=== PATIENT | female | born 1960 | race Caucasian/White ===

== ENCOUNTER 2022-09-18 10:49 | Outpatient (OUT) | payer BC, SELFPAY ==
[2022-09-18 11:04] LABS: Basophils Absolute Auto 0.1 10^3/uL (0.0-0.1); Eosinophils Absolute Auto 0.2 10^3/uL (0.0-0.7); Eosinophils Percent Auto 3.8 % (0.9-7.0); Hematocrit 34.7 % (36.0-48.0); Hemoglobin 10.8 g/dL (12.0-16.0); Immature Granulocytes Abs Auto 0.03 10^3/uL (0.00-0.03); Immature Granulocytes Pct Auto 0.6 % (0.0-0.5); Lymphocytes Absolute Auto 1.2 10^3/uL (1.2-3.8); Lymphocytes Percent Auto 25.7 % (20.5-60.0); Mean Corpuscular HGB Conc 31.1 g/dL (29.9-35.2); Mean Corpuscular Hemoglobin 26.2 pg (26.7-34.0); Mean Corpuscular Volume 84.2 fL (81.0-99.0); Mean Platelet Volume 10.1 fL (9.5-13.5); Monocytes Absolute Auto 0.4 10^3/uL (0.3-0.8); Monocytes Percent Auto 8.8 % (1.7-12.0); Neutrophils Absolute Auto 2.9 10^3/uL (1.4-6.5); Neutrophils Percent Auto 60.1 % (43.0-75.0); Platelet Count 292 10^3/uL (150-450); Red Blood Count 4.12 10^6/uL (4.20-5.40); Red Cell Distribution Width 15.3 % (11.0-15.0); White Blood Count 4.8 10^3/uL (4.0-11.0)
[2022-09-18 11:20] LABS: Estimated Average Glucose 111 mg/dL; Glycohemoglobin A1C 5.5 % (4.5-6.2)
[2022-09-18 12:26] LABS: Alanine Aminotransferase 22 U/L (14-59); Albumin Globulin Ratio 1.1; Albumin Level 3.9 g/dL (3.4-5.0); Alkaline Phosphatase 86 U/L (46-116); Anion Gap 11.4; Aspartate Amino Transferase 13 U/L (15-37); BUN Creatinine Ratio 17.1; Bilirubin Direct <0.1 mg/dL (0.0-0.2); Bilirubin Total 0.2 mg/dL (0.2-1.0); Calcium 8.8 mg/dL (8.5-10.1); Carbon Dioxide 26.9 mmol/L (21.0-32.0); Chloride 104 mmol/L (98-107); Chol HDL Ratio 6.1; Cholesterol 273 mg/dL (<=200); Estimated GFR (African America >60 (>=60); Estimated GFR (Non-African Ame >60 (>=60); Globulin 3.6 g/dL; Glucose 94 mg/dL (74-106); HDL Cholesterol 45 mg/dL (40-60); Potassium 4.3 mmol/L (3.5-5.1); Sodium 138 mmol/L (136-145); Thyroid Stimulating Hormone 1.532 uIU/mL (0.358-3.740); Total Protein 7.5 g/dL (6.4-8.2); Triglycerides 274 mg/dL (<=150); VLDL CHOLESTEROL 54.8 mg/dL
== END 2022-09-18 10:50 | disposition home or self-care (01) ==
PROVIDERS: PCP Family Medicine; Visit Provider Family Medicine
DX: Z00.00 Encounter for general adult medical examination without abnormal findings (principal); M85.852 Other specified disorders of bone density and structure, left thigh; M85.851 Other specified disorders of bone density and structure, right thigh
CPT/HCPCS: 36415; 80048; 80061; 80076; 82306; 83036; 84443; 85025

== ENCOUNTER 2023-02-19 15:35 | Outpatient (OUT) | payer BC, SELFPAY ==
[2023-02-19 15:52] LABS: Basophils Percent Auto 0.4 % (0.2-2.0); Eosinophils Absolute Auto 0.2 10^3/uL (0.0-0.7); Eosinophils Percent Auto 2.4 % (0.9-7.0); Hematocrit 36.9 % (36.0-48.0); Immature Granulocytes Abs Auto 0.05 10^3/uL (0.00-0.03); Immature Granulocytes Pct Auto 0.5 % (0.0-0.5); Lymphocytes Absolute Auto 1.2 10^3/uL (1.2-3.8); Lymphocytes Percent Auto 11.7 % (20.5-60.0); Mean Corpuscular HGB Conc 32.5 g/dL (29.9-35.2); Mean Corpuscular Hemoglobin 30.2 pg (26.7-34.0); Mean Corpuscular Volume 92.9 fL (81.0-99.0); Mean Platelet Volume 9.8 fL (9.5-13.5); Monocytes Absolute Auto 0.4 10^3/uL (0.3-0.8); Monocytes Percent Auto 3.8 % (1.7-12.0); Neutrophils Absolute Auto 8.1 10^3/uL (1.4-6.5); Neutrophils Percent Auto 81.2 % (43.0-75.0); Platelet Count 275 10^3/uL (150-450); Red Blood Count 3.97 10^6/uL (4.20-5.40); Red Cell Distribution Width 13.2 % (11.0-15.0)
[2023-02-19 16:05] LABS: Estimated Average Glucose 111 mg/dL; Glycohemoglobin A1C 5.5 % (4.5-6.2)
[2023-02-19 16:17] LABS: Alanine Aminotransferase 43 U/L (14-59); Albumin Globulin Ratio 1.1; Albumin Level 3.7 g/dL (3.4-5.0); Alkaline Phosphatase 82 U/L (46-116); Anion Gap 8.9; Aspartate Amino Transferase 28 U/L (15-37); BUN Creatinine Ratio 17.3; Bilirubin Direct 0.1 mg/dL (0.0-0.2); Bilirubin Total 0.2 mg/dL (0.2-1.0); Calcium 9.4 mg/dL (8.5-10.1); Carbon Dioxide 30.2 mmol/L (21.0-32.0); Chloride 103 mmol/L (98-107); Chol HDL Ratio 5.4; Cholesterol 227 mg/dL (<=200); Estimated GFR (African America >60 (>=60); Estimated GFR (Non-African Ame 58 (>=60); Globulin 3.4 g/dL; Glucose 100 mg/dL (74-106); HDL Cholesterol 42 mg/dL (40-60); Potassium 4.1 mmol/L (3.5-5.1); Sodium 138 mmol/L (136-145); Thyroid Stimulating Hormone 1.154 uIU/mL (0.358-3.740); Total Protein 7.1 g/dL (6.4-8.2); Triglycerides 323 mg/dL (<=150); VLDL CHOLESTEROL 64.6 mg/dL
== END 2023-02-19 15:36 | disposition home or self-care (01) ==
LOC: LAB 15:35
PROVIDERS: PCP Family Medicine; Visit Provider Family Medicine
DX: Z00.00 Encounter for general adult medical examination without abnormal findings (principal)
CPT/HCPCS: 36415; 80048; 80061; 80076; 83036; 84443; 85025

== ENCOUNTER 2023-08-31 07:27 | Outpatient (RCR) | payer BC, SELFPAY ==
[2023-08-31 11:46] LABS: Bilirubin Urine NEGATIVE (NEGATIVE); Blood Urine NEGATIVE (NEGATIVE); Clarity Urine CLEAR (CLEAR); Color Urine LT. YELLOW (YELLOW); Glucose Urine UA NEGATIVE (NEGATIVE); Ketones Urine NEGATIVE (NEGATIVE); Leukocyte Esterase Urine NEGATIVE (NEGATIVE); Nitrite Urine NEGATIVE (NEGATIVE); Protein Urine NEGATIVE (NEG/TRACE); Urobilinogen Urine 0.2 EU/dL (0.2-1.0); pH Urine 6.5 (5.0-9.0)
--- NOTE | 2023-08-31 11:49 | PC.NURSE ---
1120: Pt. to [facility] amb. for straight cath. Denies questions. Explained procedure and what to expect to patient. Pt. to supine position. Using sterile technique, pt. straight cath'd for large amount clear yellow urine. Joanne care provided. Pt. given privacy to dress. 1135: Pt d/c'd amb. to home.
[2023-08-31 12:01] LABS: Urine Microscopic Indicated NO
== END 2023-08-31 14:46 | disposition home or self-care (01) ==
LOC: INF 07:27
PROVIDERS: PCP Family Medicine; Visit Provider Personal Emergency Response Attendant
DX: N30.00 Acute cystitis without hematuria (principal)
CPT/HCPCS: 51701; 81003

== ENCOUNTER 2023-09-07 11:30 | Outpatient (OUT) | payer BC, SELFPAY ==
--- NOTE | 2023-09-07 11:32 | MM_ITS ---
Patient Name: MANUEL RANDHAWA MR#: [id number] : 1960 Exam Date: 09/07/2023 Ordering Doctor: DR PATY GUADARRAMA RADIOLOGY REPORT PROCEDURE: MM TOMOSYNTHESIS SCREENING BI COMPARISON: MG MAMM SCREEN 3D JAYCE CAD, 06/16/2022. INDICATIONS: Screening Calculator Name NCI Breast Cancer Risk Assessment Tool 5 Year Breast Cancer Risk Not Reported. Lifetime Breast Cancer Risk Not Reported. Personal Breast Cancer No Personal Ovarian Cancer No Treatments None Family Cancers None LOCATION: [facility] BREAST COMPOSITION: There are scattered areas of fibroglandular density. FINDINGS: DIAGNOSTIC CATEGORY 2--BENIGN FINDING. NO CHANGE FROM COMPARISON. Scattered benign-appearing nodules are present. Scattered benign-appearing calcifications are present. Scattered benign-appearing lymph nodes are present. RIGHT BREAST: No significant suspicious finding. LEFT BREAST: No significant suspicious finding. RECOMMENDATIONS: ROUTINE MAMMOGRAM AND CLINICAL EVALUATION IN 12 MONTHS. PLEASE NOTE: A NORMAL MAMMOGRAM DOES NOT EXCLUDE THE POSSIBILITY OF BREAST CANCER. A CLINICALLY SUSPICIOUS PALPABLE LUMP SHOULD BE BIOPSIED. Dictated by: Navid Johnson MD on 09/07/2023 at 12:54 Approved by: Navid Johnson MD on 09/07/2023 at 13:04
--- OUTSIDE RECORDS SUMMARY | 2023-09-07 11:52 | XMS_ITS | CCD ---
Author Organization [facility] Care Team Providers Care Testboard Operator Name Role Phone ARNOLDO, DR TERRY Hines Admitting Unavailable NADERER, DR TERRY Hines Attending Unavailable NADERER, DR TERRY Hines Consulting Unavailable NADEREMolly, DR TERRY Hines Primary Care Unavailable KARASIK ., DR SALINAS Attending Unavailabl e NADERER, DR TERRY Hines Primary Care Unavailable KARASIK ., DR SALINAS Consulting Unavailabl e KARASIK ., DR SALINAS Admitting Unavailabl e ZIEBER, DR MALDONADO Barnes Consulting Unavailable KARASIK ., DR SALINAS Attending Unavailabl e KARASIK ., DR SALINAS Consulting Unavailabl e NADERER, DR TERRY Hines Primary Care Unavailable KARASIK ., DR SALINAS Admitting Unavailabl e KARASIK ., DR SALINAS Attending Unavailabl e KARASIK ., DR SALINAS Consulting Unavailabl e NADERER, DR TERRY Hines Primary Care Unavailable KARASIK ., DR SALINAS Admitting Unavailabl e KARASIK ., DR SALINAS Attending Unavailabl e KARASIK ., DR SALINAS Consulting Unavailabl e NADEREMolly, DR TERRY Hines Primary Care Unavailable KARASIK ., DR SALINAS Admitting Unavailabl e Terry Mclaughlin MD Primary Care Provider [phone] ELLSWORTHENCE Attending Unavailable ALFONSOHENRIETTA TEMPLETON J Attending Unavailable LORRIE, JUAN MIGUEL Attending Unavailable ALFONSOHENRIETTA TEMPLETON J Attending Unavailable ALFONSOHENRIETTA TEMPLETON J Attending Unavailable LORRIE, JUAN MIGUEL Attending Unavailable ALFONSOHENRIETTA TEMPLETON J Attending Unavailable LORRIE, JUAN MIGUEL Attending Unavailable LORRIE, JUAN MIGUEL Attending Unavailable KENY DUNCAN Referring Unavailable KENY DUNCAN Referring Unavailable KENY DUNCAN Referring Unavailable KENY DUNCAN Referring Unavailable ALFONSOHENRIETTA TEMPLETON Attending Unavailable ALFONSOHENRIETTA TEMPLETON Attending Unavailable NADERETERRY Barnes Attending PATY Lama Attending Monica SALEH JR., SONJA Ivory Attending Marlon SALEH JR., SONJA Ivory Referring Marlon SALEH JR., SNOJA Ivory Attending Marlon SALEH JR., SONJA Ivory Referring TERRY Levy Attending Unavailable KENY DUNCAN Attending PATY Lama Attending PATY Lama Referring Unavailable Allergies Allergy Classification Reported Allergen(s) Allergy Type Date of Onset Reaction(s) Facility (1 source) bee venom Drug allergy (disorder) 04-03-19 14 [facility] (1 source) Erythromycin Drug Allergy 04-03-19 14 [facility] (1 source) Sulfonamides (Antibiotic) Drug allergy (disorder) 04-03-19 14 [facility] (2 sources) Erythromycin; Translations: [ERYTHROMYCIN] Drug Allergy 06-19-19 23 Rash [facility] (1 source) Honey bee venom Allergy to substance 08-30-19 23 Anaphylaxis [facility] (1 source) Sulfamethoxazole / Trimethoprim Drug Allergy 07-17-19 23 Rash [facility] (1 source) Sulfonamides (Antibiotic) Drug Allergy 06-19-19 23 Swelling, Rash [facility] (1 source) Sulfonamides (Antibiotic); Translations: [SULFA (SULFONAMIDE ANTIBIOTICS)] Propensity to adverse reactions to drug (disorder) 06-19-19 23 [facility] Rep[facility] Medications Current Medications Medication Drug Class(es) Dates Sig (Normalized) Sig (Original) acetaminophen 325 mg / HYDROcodone bitartrate 5 mg oral tablet (1 source) Opioid Agonist Start: 06-24-2022 take 1 tablet by mouth four times daily as needed HYDROcodone-acetamin ophen ([place]) 5-325 MG tablet Take 1 tablet by mouth 4 (four) times a day as needed. 0 06/24/2022 Active amitriptyline hydrochloride 75 mg oral tablet (1 source) Tricyclic Antidepressant Start: 10-29-2022 take 1 tablet by mouth at bedtime amitriptyline (Elavil) 75 MG tablet Take 1 tablet by mouth at bedtime 0 10/29/2022 Active brexpiprazole 2 mg oral tablet (1 source) Atypical Antipsychotic Brexpiprazole (Rexulti) 2 MG tablet Take by mouth. 0 Active calcium polycarbophil 625 mg oral tablet (1 source) Start: 03-16-2023 take 2 tablets by mouth in the morning polycarbophil (FiberCon) 625 MG tablet Indications: Chronic constipation Take 2 tablets (1,250 mg) by mouth in the morning. 60 tablet 5 03/16/2023 Active cyclobenzaprine hydrochloride 5 mg oral tablet (1 source) Muscle Relaxant cyclobenzaprine (Flexeril) 5 MG tablet 3 (three) times a day as needed. 0 Active diazePAM 10 mg oral tablet (1 source) Benzodiazepine Start: 06-12-2022 take 1 tablet by mouth three times daily as needed diazePAM (Valium) 10 MG tablet Take 10 mg by mouth 3 (three) times a day as needed. 0 06/12/2022 Active [id number] 0.3 ml EPINEPHrine 1 mg/ml auto-injector (2 sources) alpha-Adrenergic Agonist, beta-Adrenergic Agonist, Catecholamine Start: 02-17-2022 End: 03-26-2023 EPINEPHrine (Epipen) 0.3 MG/0.3ML injection syringe Indications: History of allergic reaction INJECT 1 (ONE) pen NEEDED 1 each 3 03/26/2023 Active lactulose 667 mg/ml oral solution (1 source) Osmotic Laxative Start: 03-16-2023 take 30 mL by mouth twice daily as needed for constipation lactulose 20 gram/30 mL oral solution Indications: Chronic constipation Take 30 mL (20 g) by mouth 2 (two) times a day as needed (Constipation) 450 mL 3 03/16/2023 Active meloxicam 15 mg oral tablet (1 source) Nonsteroidal Anti-inflammatory Drug take 1 tablet by mouth in the morning meloxicam (Mobic) 15 MG tablet Take 15 mg by mouth in the morning. 0 Active omeprazole 40 mg delayed release oral capsule (1 source) Proton Pump Inhibitor take 1 capsule by mouth in the morning omeprazole (PriLOSEC) [address] capsule Take 40 mg by mouth in the morning and 40 mg before bedtime. 0 Active 0.25 mg, 0.5 mg dose 1.5 ml semaglutide 1.34 mg/ml pen injector (1 source) Start: 02-18-2023 semaglutide (Ozempic, 0.25 or 0.5 MG/DOSE,) 2 MG/1.5ML solution pen-injector Indications: Metabolic syndrome 0.25 mg SC weekly x 4 weeks, then 0.5 mg weekly 4 each 3 02/18/2023 Active sucralfate 1000 mg oral tablet (2 sources) Aluminum Complex Start: 12-13-2021 End: 03-26-2023 take 1 tablet by mouth at bedtime sucralfate (Carafate) 1 g tablet Indications: Gastroesophageal reflux disease without esophagitis Take 1 tablet (1 g) by mouth in the morning and 1 tablet (1 g) at noon and 1 tablet (1 g) in the evening and 1 tablet (1 g) before bedtime. Take before meals. 120 tablet 5 03/26/2023 Active topiramate 25 mg oral tablet (1 source) Start: 02-19-2023 take 1 tablet by mouth in the morning topiramate (Topamax) 25 MG tablet Take 25 mg by mouth in the morning and 25 mg in the evening. 0 02/19/2023 Active 24 hr venlafaxine 150 mg extended release oral capsule (1 source) Serotonin and Norepinephrine Reuptake Inhibitor take 1 capsule by mouth every twenty-four hours in the morning venlafaxine XR (Effexor XR) 150 MG 24 hr capsule Take 150 mg by mouth in the morning and 150 mg before bedtime. Do not crush or chew. . 0 Active zolpidem tartrate 10 mg oral tablet (1 source) gamma-Aminobutyric Acid-ergic Agonist Start: 02-02-2023 take 1 tablet by mouth at bedtime zolpidem (Ambien) 10 MG tablet Indications: Insomnia, unspecified TAKE 1 TABLET BY MOUTH AT BEDTIME 30 tablet 2 02/02/2023 Active Problems Active Problems Problem Classification Problem Date Documented Da te Episodic/Chronic Allergic reactions (1 source) History of immune disorder; Translations: [Allergy status to unspecified drugs, medicaments and biological substances status] 03-26-2023 Episodic Anxiety disorders (4 sources) Generalized anxiety disorder; Translations: [Generalized anxiety disorder] Onset: 2 08-29-2022 Chronic Disorders of lipid metabolism (1 source) Hyperlipidemia; Translations: [Hyperlipidemia, unspecified] Onset: 4 02-18-2023 Chronic Esophageal disorders (2 sources) Gastroesophageal reflux disease without esophagitis; Translations: [Gastro-esophageal reflux disease without esophagitis] Onset: 4 03-26-2023 Chronic Genitourinary symptoms and ill-defined conditions (1 source) Female stress incontinence; Translations: [Stress incontinence (female) (male)] Onset: 4 02-18-2023 Chronic Immunizations and screening for infectious disease (5 sources) Encounter for screening for human papillomavirus (HPV); Translations: [Encounter for screening for infections with a predominantly sexual mode of transmission] Onset: 2 Episodic Miscellaneous mental health disorders (1 source) Primary insomnia; Translations: [Primary insomnia] Onset: 4 02-18-2023 Chronic Mood disorders (3 sources) Recurrent major depressive episodes, moderate ; Translations: [Major depressive disorder, recurrent, moderate] Onset: 2 Resolved: 3 02-18-2023 Chronic Osteoarthritis (4 sources) Arthritis of hand; Translations: [Primary osteoarthritis, unspecified hand] Onset: 3 08-29-2022 Chronic Other bone disease and musculoskeletal deformities (1 source) Other specified disorders of bone density and structure, left thigh; Translations: [OTH D/O BONE DEN STRUCT LT THIGH] Onset: 3 Episodic Other connective tissue disease (1 source) History of total knee arthroplasty; Translations: [Presence of unspecified artificial knee joint] Onset: 3 08-29-2022 Chronic Other connective tissue disease (1 source) Artificial knee joint present; Translations: [Presence of left artificial knee joint] Onset: 3 08-29-2022 Chronic Other gastrointestinal disorders (2 sources) Chronic constipation; Translations: [Other constipation] Onset: 4 03-26-2023 Episodic Other nervous system disorders (1 source) Polyneuropathy; Translations: [Polyneuropathy, unspecified] Onset: 4 02-18-2023 Chronic Other nutritional; endocrine; and metabolic disorders (1 source) Body mass index 30+ - obesity; Translations: [Obesity, unspecified] Onset: 4 02-18-2023 Chronic Other nutritional; endocrine; and metabolic disorders (1 source) Metabolic syndrome X; Translations: [Metabolic syndrome] Onset: 4 02-18-2023 Chronic Other screening for suspected conditions (not mental disorders or infectious disease) (12 sources) Encounter for screening mammogram for malignant neoplasm of breast; Translations: [Encounter for screening for malignant neoplasm of cervix] Onset: 3 Episodic Other skin disorders (1 source) Hyperhidrosis; Translations: [Generalized hyperhidrosis] Onset: 4 02-18-2023 Episodic Other upper respiratory disease (1 source) Allergic rhinitis due to pollen; Translations: [Allergic rhinitis due to pollen] Onset: 4 02-18-2023 Chronic Residual codes; unclassified (1 source) Asymptomatic menopausal state; Translations: [ASYMPTOMATIC MENOPAUSAL STATE] Onset: 3 Episodic Residual codes; unclassified (1 source) Edema of lower extremity; Translations: [Localized edema] Onset: 4 02-18-2023 Episodic Spondylosis; intervertebral disc disorders; other back problems (1 source) Lumbar spondylosis; Translations: [Spondylosis without myelopathy or radiculopathy, lumbar region] Onset: 4 02-18-2023 Chronic Past or Other Problems Problem Classification Problem Date Documented Da te Episodic/Chronic Mood disorders (1 source) Mood disorders Onset: 02-18-2023 02-18-2023 Other acquired deformities (1 source) Deyanira legged; Translations: [Varus deformity, not elsewhere classified, right knee] Onset: 08-29-2022 08-29-2022 Episodic Other connective tissue disease (1 source) Pain of left hand; Translations: [Pain in left hand] Onset: 08-29-2022 08-29-2022 Episodic Other non-traumatic joint disorders (1 source) Pain in unspecified knee; Translations: [Pain in joint, lower leg] Onset: 08-29-2022 08-29-2022 Episodic Urinary tract infections (1 source) Acute cystitis; Translations: [Acute cystitis without hematuria] Onset: 08-29-2022 08-29-2022 Episodic Viral infection (1 source) Condyloma acuminatum of the anogenital region; Translations: [Anogenital (venereal) warts] Onset: 08-29-2022 08-29-2022 Episodic Results Test Name Value Interpretation Reference Range Facility XR BONE LENGTH STUDYon 08-17 XR BONE LENGTH STUDY XR BONE LENGTH STUD Y Clinical History: Preop total knee arthroplasty Bone length study lower extremities: 08/17/2023 Impression: 1. Frontal images of both lower extremities were performed 2. The patient is status post left total knee arthroplasty. 3. Degenerative changes are present at the right knee with varus deformity. 4. There is approximately 4 degrees of pelvic tilt towards the right. Finalized by Pascual Castro MD on 08/18/2023 6:34 AM Normal [facility] CBC AND AUTO DIFFon 08-17-19 24 ABSOLUTE BASOPHIL 0.0 X10E9/L Normal 0.0-0.2 [facility] Comment on above: Performed By: #### P INR, 63630-5 #### [facility] ([id number]) [address] [place] [address] 28245 #### CMP, CBCA #### [facility] ([id number]) [address], [address] [place] [address] ABSOLUTE NEUTROPHIL 3.7 X10E9/L Normal 1.5-6.6 [facility] Comment on above: Performed By: #### P INR, 43249-5 #### [facility] ([id number]) [address] [place] [address] 37089 #### CMP, CBCA #### [facility] ([id number]) [address], [address] [place] [address] Basophils/100 WBC (Bld) 0.8 % Normal [facility] Comment on above: Performed By: #### P INR, 63092-4 #### [facility] ([id number]) [address] [place] [address] 77373 #### CMP, CBCA #### [facility] ([id number]) [address], [address] [place] [address] Eosinophils (Bld) [#/Vol] 0.1 10*3/uL Normal 0.0-0.4 [facility] Comment on above: Performed By: #### P INR, 10247-6 #### [facility] ([id number]) [address] [place] [address] 72555 #### CMP, CBCA #### [facility] ([id number]) [address], [address] [place] [address] Eosinophils/100 WBC (Bld) 2.4 % Normal [facility] Comment on above: Performed By: #### P INR, 78783-9 #### [facility] ([id number]) [address] [place] [address] 39139 #### CMP, CBCA #### [facility] ([id number]) [address], [address] [place] [address] Erythrocyte distribution width (RBC) [Ratio] 14.6 % Normal 11.5-15.0 [facility] Comment on above: Performed By: #### P INR, 35789-9 #### [facility] ([id number]) [address] [place] [address] 66460 #### CMP, CBCA #### [facility] ([id number]) [address], [address] [place] [address] Hematocrit (Bld) [Volume fraction] 38.0 % Normal 35-47 [facility] Comment on above: Performed By: #### P INR, 73655-5 #### [facility] ([id number]) [address] [place] [address] 60585 #### CMP, CBCA #### [facility] ([id number]) [address], [address] [place] [address] Hemoglobin (Bld) [Mass/Vol] 13.1 g/dL Normal 11.7-15.5 [facility] Comment on above: Performed By: #### P INR, 17590-3 #### [facility] ([id number]) [address] [place] [address] 11255 #### CMP, CBCA #### [facility] ([id number]) [address], [address] [place] [address] Lymphocytes (Bld) [#/Vol] 1.2 10*3/uL Normal 1.0-3.5 [facility] Comment on above: Performed By: #### P INR, 98710-5 #### [facility] ([id number]) [address] [place] [address] 46722 #### CMP, CBCA #### [facility] ([id number]) [address], [address] [place] [address] Lymphocytes/100 WBC (Bld) 23.1 % Normal [facility] Comment on above: Performed By: #### P INR, 75784-5 #### [facility] ([id number]) [address] [place] [address] 28022 #### CMP, CBCA #### [facility] ([id number]) [address], [address] [place] [address] MCH (RBC) [Entitic mass] 30.2 pg Normal 27-34 [facility] Comment on above: Performed By: #### P INR, 41059-8 #### [facility] ([id number]) [address] [place] [address] 92144 #### CMP, CBCA #### [facility] ([id number]) [address], [address] [place] [address] MCHC (RBC) [Mass/Vol] 34.6 g/dL Normal 32-36 [facility] Comment on above: Performed By: #### P INR, 03033-5 #### [facility] ([id number]) [address] [place] [address] 84090 #### CMP, CBCA #### [facility] ([id number]) [address], [address] [place] [address] MCV (RBC) [Entitic vol] 87 fL Normal 80-100 [facility] Comment on above: Performed By: #### P INR, 33749-3 #### [facility] ([id number]) [address] [place] [address] 41173 #### CMP, CBCA #### [facility] ([id number]) [address], [address] [place] [address] Monocytes (Bld) [#/Vol] 0.3 10*3/uL Normal 0-0.9 [facility] Comment on above: Performed By: #### P INR, 61567-6 #### [facility] ([id number]) [address] [place] [address] 71363 #### CMP, CBCA #### [facility] ([id number]) [address], [address] [place] [address] Monocytes/100 WBC (Bld) 5.8 % Normal [facility] Comment on above: Performed By: #### P INR, 01238-3 #### [facility] ([id number]) [address] [place] [address] 00660 #### CMP, CBCA #### [facility] ([id number]) [address], [address] [place] [address] Neutrophils/100 WBC (Bld) 67.9 % Normal [facility] Comment on above: Performed By: #### P INR, 87469-5 #### [facility] ([id number]) [address] [place] [address] 36996 #### CMP, CBCA #### [facility] ([id number]) [address], [address] [place] [address] Platelet mean volume (Bld) [Entitic vol] 8.9 fL Normal 7-12 [facility] Comment on above: Performed By: #### P INR, 75002-6 #### [facility] ([id number]) [address] [place] [address] 46340 #### CMP, CBCA #### [facility] ([id number]) [address] [facility] [address], [address] [place] [address] Platelets (Bld) [#/Vol] 271 10*3/uL Normal 150-450 [facility] Comment on above: Performed By: #### P INR, 84834-2 #### [facility] ([id number]) [address] [place] [address] 84315 #### CMP, CBCA #### [facility] ([id number]) [address] [facility], [address] [place] [address] RBC COUNT 4.35 X10E12/L Normal 3.80-5.20 [facility] Comment on above: Performed By: #### P INR, 84532-9 #### [facility] ([id number]) [address] [place] [address] 00032 #### CMP, CBCA #### [facility] ([id number]) [address] [facility] [facility] [address], [address] [place] [address] WBC (Bld) [#/Vol] 5.4 10*3/uL Normal 4.0-11.0 [facility] Comment on above: Performed By: #### P INR, 25951-6 #### [facility] ([id number]) [address] [place] [address] 98097 #### CMP, CBCA #### [facility] ([id number]) [address] [facility] [address], [address] [place] [address] COMPREHENSIVE METABOLIC PANE [facility] 08-17-2023 Albumin [Mass/Vol] 4.4 g/dL Normal 3.2-5.3 [facility] Comment on above: Performed By: #### P INR, 49791-5 #### [facility] ([id number]) [address] [place] [address] 06987 #### CMP, CBCA #### [facility] ([id number]) [address], [address] [place] [address] ALP [Catalytic activity/Vol] 92 U/L Normal 39-130 [facility] Comment on above: Performed By: #### P INR, 39886-4 #### [facility] ([id number]) [address] [place] [address] 70933 #### CMP, CBCA #### [facility] ([id number]) [address], [address] [place] [address] ALT [Catalytic activity/Vol] 24 U/L Normal 0-31 [facility] Comment on above: Performed By: #### P INR, 88235-6 #### [facility] ([id number]) [address] [place] [address] 38263 #### CMP, CBCA #### [facility] ([id number]) [address], [address] [place] [address] Anion gap [Moles/Vol] 9 mmol/L Normal 5-15 [facility] Comment on above: Performed By: #### P INR, 09621-6 #### [facility] ([id number]) [address] [place] [address] 57084 #### CMP, CBCA #### [facility] ([id number]) [address], [address] [place] [address] AST [Catalytic activity/Vol] 20 U/L Normal 0-41 [facility] Comment on above: Performed By: #### P INR, 10278-0 #### [facility] ([id number]) [address] [place] [address] 51760 #### CMP, CBCA #### [facility] ([id number]) [address] [place] [address] Bilirubin [Mass/Vol] 0.2 mg/dL Low 0.3-1.2 [facility] Comment on above: Performed By: #### P INR, 88129-6 #### [facility] ([id number]) [address] [place] [address] 07718 #### CMP, CBCA #### [facility] ([id number]) [address], [address] [place] [address] Calcium [Mass/Vol] 9.2 mg/dL Normal 8.5-10.5 [facility] Comment on above: Performed By: #### P INR, 41658-7 #### [facility] ([id number]) [address] [place] [address] 12209 #### CMP, CBCA #### [facility] ([id number]) [address], [address] [place] [address] Chloride [Moles/Vol] 109 mmol/L Normal 98-109 [facility] Comment on above: Performed By: #### P INR, 35850-6 #### [facility] ([id number]) [address] [place] [address] 44997 #### CMP, CBCA #### [facility] ([id number]) [address] [place] [address] CO2 [Moles/Vol] 23 mmol/L Normal 22-32 [facility] Comment on above: Performed By: #### P INR, 63931-4 #### [facility] ([id number]) [address] [place] [address] 19884 #### LETY CBCA #### [facility] ([id number]) [address], [address] [place] [address] Creatinine [Mass/Vol] 0.75 mg/dL Normal 0.40-1.00 [facility] Comment on above: Result Comment: METH OD TRACEABLE TO IDMS STANDARD Performed By: #### P INR, 77148-8 #### [facility] ([id number]) [address] [place] [address] 52971 #### LETY CBCA #### [facility] ([id number]) [address], [address] [place] [address]36 eGFR (CKD-EPI) NON-RACE DEPENDENT >90 Normal >59 [facility] Comment on above: Result Comment: Reported eGFR is based on the CKD-EPI 2020 equation that does not use a race coefficient. Performed By: #### P INR, 11787-1 #### [facility] ([id number]) [address] [place] [address] 24953 #### LETY CBCA #### [facility] ([id number]) [address] [address], [address] [place] [address] Glucose [Mass/Vol] 109 mg/dL High 65-99 [facility] Comment on above: Performed By: #### P INR, 77480-4 #### [facility] ([id number]) [address] [place] [address] 92641 #### CMP CBCA #### [facility] ([id number]) [address] [facility] [address], [address] [place] [address] Potassium [Moles/Vol] 3.8 mmol/L Normal 3.5-5.0 [facility] Comment on above: Performed By: #### P INR, 04981-3 #### [facility] ([id number]) [address] [place] [address] 60387 #### CMP, CBCA #### [facility] ([id number]) [address] [facility] [facility] [address], [address] [place] [address] Protein [Mass/Vol] 7.0 g/dL Normal 6.0-8.0 [facility] Comment on above: Performed By: #### P INR, 40477-5 #### [facility] ([id number]) [address] [place] [address] 83707 #### CMP, CBCA #### [facility] ([id number]) [address] [facility], [address] [place] [address] Sodium [Moles/Vol] 141 mmol/L Normal 134-146 [facility] Comment on above: Performed By: #### P INR, 18867-9 #### [facility] ([id number]) [address] [place] [address] 30485 #### CMP, CBCA #### [facility] ([id number]) 0 [facility], [address] [place] [address] Urea nitrogen [Mass/Vol] 18 mg/dL Normal 5-23 [facility] Comment on above: Performed By: #### P INR, 74915-8 #### [facility] ([id number]) [address] [place] [address] #### CMP, CBCA #### [facility] ([id number]) [address] [facility], [address] [place] [address] PROTIME AND INRon 08-17-2023 INR Coag (PPP) [Relative time] 1.0 {INR} Normal 0.8-1.1 [facility] Comment on above: Performed By: #### P INR, 78531-0 #### [facility] ([id number]) [address] [place] [address] #### CMP, CBCA #### [facility] ([id number]) [address] [facility], [address] [place] [address] PT Coag (PPP) [Time] 11.8 s Normal 9.8-13.2 [facility] Comment on above: Result Comment: NEW REFERENCE RANGE Performed By: #### P INR, 66408-6 #### [facility] ([id number]) [address] [place] [address] #### CMP, CBCA #### [facility] ([id number]) [address] [facility], [address] [place] [address] URINALYSISon 08-17-2023 Bilirubin Ql (U) Negative Normal NEG [facility] Comment on above: Performed By: #### U A #### [facility] ([id number]) [address] [facility], [address] [place] [address] BLOOD/HGB Negative Normal NEG [facility] Comment on above: Performed By: #### U A #### [facility] ([id number]) [address] [facility], [address] [place] [address] CA OXALATE CRYSTALS PRESENT Abnormal NONE [facility] Comment on above: Performed By: #### U A #### [facility] ([id number]) [address] [facility], [address] [place] [address] Color (U) YELLOW Normal YELLOW [facility] Comment on above: Performed By: #### U A #### [facility] ([id number]) [address] [facility], [address] [place] [address] Glucose Ql (U) Negative Normal NEG [facility] Comment on above: Performed By: #### U A #### [facility] ([id number]) [address] [facility], [address] [place] [address] Ketones Ql (U) Negative Normal NEG [facility] Comment on above: Performed By: #### U A #### [facility] ([id number]) [address] [place] [address] Leukocyte esterase Test strip Ql (U) Small Abnormal NEG [facility] Comment on above: Performed By: #### U A #### [facility] ([id number]) [address], [address] [place] [address] MUCOUS PRESENT Abnormal NONE [facility] Comment on above: Performed By: #### U A #### [facility] ([id number]) [address] [facility], [address] [place] [address] Nitrite Ql (U) Negative Normal NEG [facility] Comment on above: Performed By: #### U A #### [facility] ([id number]) [address] [place] [address] pH (U) 6.0 [pH] Normal 5.0-8.5 [facility] Comment on above: Performed By: #### U A #### [facility] ([id number]) [facility], [address] [place] [address] Protein Ql (U) Negative Normal NEG [facility] Comment on above: Performed By: #### U A #### [facility] ([id number]) [address] [place] [address] R.B.CELLS 1 /hpf Normal 0-5 [facility] Comment on above: Performed By: #### U A #### [facility] ([id number]) [address], [address] [place] [address] Specific gravity (U) [Rel density] 1.021 Normal 1.003-1.035 [facility] Comment on above: Performed By: #### U A #### [facility] ([id number]) [address], [address] [place] [address] SQUAMOUS EPITHELIUM 1 /hpf Normal 0-5 [facility] Comment on above: Performed By: #### U A #### [facility] ([id number]) [address] [place] [address] TURBIDITY CLEAR Normal CLEAR [facility] Comment on above: Performed By: #### U A #### [facility] ([id number]) [address] [place] [address] Urobilinogen (U) [Mass/Vol] mg/dL Normal <1.1 [facility] Comment on above: Performed By: #### U A #### [facility] ([id number]) [address] [address] [place] [address] W.B.CELLS 3 /hpf Normal 0-5 [facility] Comment on above: Performed By: #### U A #### [facility] ([id number]) [address] [address] [place] [address] URINE CULTUREon 08-17-2023 Bacteria identified Cx Nom (U) CULTURE RESULTS >100,000 ORGANISMS/mL ESCHERICHIA COLI [ S = SUSCEPTIBLE R = RESISTANT I = INTERMEDIATE S-DO = Susceptible-dose dependent NS = Non-suscceptible NO = No Interpretation ] Organism: ESCHERICHIA COLI Antibiotic Interpretation HONG Status AMPICILLIN S <=2 F AMP/SULBACTAM S <=2/1 F CEFAZOLIN S <=4 F CEFTRIAXONE S <=1 F CIPROFLOXACIN R >=4 F GENTAMICIN S <=1 F LEVOFLOXACIN R >=8 F NITROFURANTOIN S <=16 F PIPERACIL/TAZOBACTAM S <=4 F TOBRAMYCIN S <=1 F TRIMETH/SULFAMETHOXAZO LE S <=1/19 F Susceptible [facility] Comment on above: Performed By: #### 6 30-4 #### [facility] ([id number]) [address] [address] [place] [address] aPTT Coag (PPP) [Time]on aPTT Coag (Bld) [Time] 30 s Normal 26-37 [facility] Comment on above: Result Comment: NEW REFERENCE RANGE Performed By: #### P INR, 85189-9 #### [facility] ([id number]) [address] [place] [address], [place] [address] #### CMP, CBCA #### [facility] ([id number]) [address] [place] [address], [address] [place] [address] PAP ACOG PANEL 2: 30 to 65on 06-18-2022 . . Normal [facility] Comment on above: Result Comment: Perf ormed at: WB Performed By: #### 4 [id number] #### [facility] [address] [address] [address] Laurita Hooker Age Gdln ACOG Testing 30-65 Normal [facility] Comment on above: Performed By: #### 4 [id number] #### [facility] [address] [address] [address] Laurita Hooker DIAGNOSIS: Comment Abnormal [facility] Comment on above: Result Comment: EPIT HELIAL CELL ABNORMALITY. LOW GRADE SQUAMOUS INTRAEPITHELIAL LESION (LSIL). Performed at: WB Performed By: #### 4 [id number] #### [facility] [address] [place] [address] Dr. Laurita Hooker Electronically signed by: Comment Normal [facility] Comment on above: Result Comment: Leeann Carrera MD, Pathologist Performed at: WB Performed By: #### 4 [id number] #### [facility] [address] [address] [address] Laurita Hooker HPV Aptima Positive Abnormal Negative [facility] Comment on above: Result Comment: This nucleic acid amplification test detects fourteen high-risk HPV types (16,18,31,33,35,39,45,51,52,56,58,59,66,68) without differentiation. Performed at: =G Performed By: #### 4 [id number] #### [facility] [address] [address] [address] Laurita Hooker HPV Genotype Reflex Comment Normal [facility] Comment on above: Result Comment: Crit eria not met, HPV Genotype not performed. Performed at: WB Performed By: #### 4 [id number] #### [facility] [address] [address] [address] Laurita Hooker Methodology: Comment Normal [facility] Comment on above: Result Comment: This liquid based ThinPrep(R) pap test was screened with the use of an image guided system. Performed at: WB Performed By: #### 4 [id number] #### [facility] [address] [place] [address] Dr. Laurita Hooker Note: Comment Normal [facility] Comment on above: Result Comment: The Pap smear is a screening test designed to aid in the detection of premalignant and malignant conditions of the uterine cervix. It is not a diagnostic procedure and should not be used as the sole means of detecting cervical cancer. Both false-positive and false-negative reports do occur. . Performed at: WB Performed By: #### 4 [id number] #### [facility] [address] [place] [address] Dr. Laurita Hooker Pathologist Provided ICD10 Comment Normal [facility] Comment on above: Result Comment: R87. [id number] Performed at: WB Performed By: #### 4 [id number] #### [facility] [address] [place] [address] Dr. Laurita Hooker Performed by: Comment Normal [facility] Comment on above: Result Comment: Ashley Pena Marriage Performer (ASCP) Performed at: WB Performed By: #### 4 [id number] #### [facility] [address] [place] [address] Dr. Laurita Hooker Recommendation: Comment Abnormal [facility] Comment on above: Result Comment: Sugg est follow up as clinically appropriate. Performed at: WB Performed By: #### 4 [id number] #### [facility] [address] [place] [address] Dr. Laurita Hooker Specimen adequacy: Comment Normal [facility] Comment on above: Result Comment: Sati sfactory for evaluation. Endocervical and/or squamous metaplastic cells (endocervical component) are present. Performed at: WB Performed By: #### 4 [id number] #### [facility] [address] [place] [address] Dr. Laurita Hooker MG MAMM SCREEN 3D JAYCE CADon 06-16-2022 MG MAMM SCREEN 3D JAYCE CAD Patient: MANUEL RANDHAWA Exam Date: 06/16/2022 : 1960 Gender:F Ordering : DR BRAD CALERO . Admission #: [id number] Family : Order #: [id number] CLICK HERE TO VIEW EXAM RADIOLOGY REPORT PROCEDURE: MAMMOGRAM SCREENING 3D BILATERAL CAD COMPARISON: MAMMO JAYCE DIAG DIG, 12/02/2010. MAMMO SCREEN DIG JAYCE, 11/22/2010. DIGITIZED_MAMMO, 12/18/2001. INDICATIONS: Screening mammography Calculator Name NCI Breast Cancer Risk Assessment Tool 5 Year Breast Cancer Risk Not Reported. Lifetime Breast Cancer Risk Not Reported. Personal Breast Cancer No Personal Ovarian Cancer No Treatments None Family Cancers None LOCATION: [facility] BREAST COMPOSITION: Scattered areas fibroglandular density. FINDINGS: DIAGNOSTIC CATEGORY 2--BENIGN FINDING: RIGHT BREAST: No significant suspicious finding. Scattered benign-appearing lymph nodes are present. No significant change has occurred. LEFT BREAST: No significant suspicious finding. Significant decrease in size of previously seen lymph nodes. RECOMMENDATIONS: ROUTINE MAMMOGRAM AND CLINICAL EVALUATION IN 12 MONTHS. PLEASE NOTE: A NORMAL MAMMOGRAM DOES NOT EXCLUDE THE POSSIBILITY OF BREAST CANCER. A CLINICALLY SUSPICIOUS PALPABLE LUMP SHOULD BE BIOPSIED. Dictated by: Maldonado Redd M.D. on 06/16/2022 at 14:18 Approved by: Maldonado Redd M.D. on 06/16/2022 at 14:21 Normal [facility] XR DEXA BONE DENSITYon 06-16 XR DEXA BONE DENSITY EXAMINATION: XR DEX A BONE DENSITY, 06/16/2022 10:59 AM EDT HISTORY: Menopause present COMPARISON: None. TECHNIQUE: Dual-energy X-ray absorptiometry (DEXA) bone density study performed for the axial skeleton. FINDINGS: SPINE ANALYSIS: Average bone mineral density is 1.268 g/cm2. T-score (standard deviation relative to young adult mean): 0.7 . HIP ANALYSIS: Lowest bone mineral density is within the left femoral trochanter, 0.703 g/cm2. T-score (standard deviation relative to young adult mean): -1.3 . IMPRESSION: World [employer] Classification: Osteopenia - Moderate Fracture Risk Electronically authenticated by: MALDONADO REDD Date: 2022-06-16 15:27 Normal [facility] PAP ACOG PANEL 2: 30 to 65on 03-19-2022 . . Normal [facility] Comment on above: Result Comment: Perf ormed at: WB Performed By: #### 4 [id number] #### [facility] [address] [address] [address] Laurita Hooker Age Gdln ACOG Testing 30-65 Normal [facility] Comment on above: Performed By: #### 4 [id number] #### [facility] [address] [place] [address] Dr. Laurita Hooker DIAGNOSIS: Comment Abnormal [facility] Comment on above: Result Comment: EPIT HELIAL CELL ABNORMALITY. LOW-GRADE SQUAMOUS INTRAEPITHELIAL LESION (LSIL); (ENCOMPASSING HUMAN PAPILLOMAVIRUS /MILD DYSPLASIA/CIN1). Performed at: WB Performed By: #### 4 [id number] #### [facility] [address] [address] [address] Laurita Hooker Electronically signed by: Comment Normal [facility] Comment on above: Result Comment: Allie Nowak MD, Pathologist Performed at: WB Performed By: #### 4 [id number] #### [facility] [address] [address] [address] Laurita Hooker HPV Aptima Positive Abnormal Negative [facility] Comment on above: Result Comment: This nucleic acid amplification test detects fourteen high-risk HPV types (16,18,31,33,35,39,45,51,52,56,58,59,66,68) without differentiation. Performed at: =G Performed By: #### 4 [id number] #### [facility] [address] [place] [address] Dr. Laurita Hooker HPV Genotype Reflex Comment Normal [facility] Comment on above: Result Comment: Crit eria not met, HPV Genotype not performed. Performed at: WB Performed By: #### 4 [id number] #### [facility] [address] [place] [address] Dr. Laurita Hooker Methodology: Comment [facility] Comment on above: Result Comment: This liquid based ThinPrep(R) pap test was screened with the use of an image guided system. Performed at: WB Performed By: #### 4 [id number] #### [facility] [address] [place] [address] Dr. Laurita Hooker Note: Comment Normal [facility] Comment on above: Result Comment: The Pap smear is a screening test designed to aid in the detection of premalignant and malignant conditions of the uterine cervix. It is not a diagnostic procedure and should not be used as the sole means of detecting cervical cancer. Both false-positive and false-negative reports do occur. . Performed at: WB Performed By: #### 4 [id number] #### [facility] [address] [place] [address] Dr. Laurita Hooker Pathologist Provided ICD10 Comment Normal [facility] Comment on above: Result Comment: R87. [id number] Performed at: WB Performed By: #### 4 [id number] #### [facility] [address] [place] [address] Dr. Laurita Hooker Performed by: Comment Normal [facility] Comment on above: Result Comment: Kamran Krishnamurthy, Marriage Performer (ASCP) Performed at: [facility] Performed By: #### 4 [id number] #### [facility] [address] [place] [address] Dr. Laurita Hooker Recommendation: Comment Abnormal [facility] Comment on above: Result Comment: Sugg est follow up as clinically appropriate. Performed at: WB Performed By: #### 4 [id number] #### [facility] [address] [place] [address] Dr. Laurita Hooker Specimen adequacy: Comment Normal [facility] Comment on above: Result Comment: Sati sfactory for evaluation. Endocervical and/or squamous metaplastic cells (endocervical component) are present. Performed at: WB Performed By: #### 4 [id number] #### [facility] [address] [place] [address] Dr. Laurita Hooker PAP ACOG PANEL 2: 30 to 65on 09-17-2021 . . Normal [facility] Comment on above: Result Comment: Perf ormed at: WB Performed By: #### 4 [id number] #### [facility] [address] [address] [address] Laurita Hooker Age Gdln ACOG Testing 30-65 Normal [facility] Comment on above: Performed By: #### 4 [id number] #### [facility] [address] [place] [address] Dr. Laurita Hooker DIAGNOSIS: Comment Normal [facility] Comment on above: Result Comment: NEGA TIVE FOR INTRAEPITHELIAL LESION OR MALIGNANCY. Performed at: WB Performed By: #### 4 [id number] #### [facility] [address] [place] [address] Dr. Laurita Hooker HPV Aptima Positive Abnormal Negative [facility] Comment on above: Result Comment: This nucleic acid amplification test detects fourteen high-risk HPV types (16,18,31,33,35,39,45,51,52,56,58,59,66,68) without differentiation. Performed at: =G Performed By: #### 4 [id number] #### [facility] [address] [place] [address] Dr. Laurita Hooker HPV Genotype 16 Positive Abnormal Negative [facility] Comment on above: Result Comment: Perf ormed at: =G Performed By: #### 4 [id number] #### [facility] [address] [place] [address] Dr. Laurita Hooker HPV Genotype 18,45 Negative Normal Negative [facility] Comment on above: Result Comment: Perf ormed at: =G Performed By: #### 4 [id number] #### [facility] [address] [place] [address] Dr. Laurita Hooker Methodology: Comment Normal [facility] Comment on above: Result Comment: This liquid based ThinPrep(R) pap test was screened with the use of an image guided system. Performed at: WB Performed By: #### 4 [id number] #### [facility] [address] [address] [address] Laurita Hooker Note: Comment Normal [facility] Comment on above: Result Comment: The Pap smear is a screening test designed to aid in the detection of premalignant and malignant conditions of the uterine cervix. It is not a diagnostic procedure and should not be used as the sole means of detecting cervical cancer. Both false-positive and false-negative reports do occur. . Performed at: WB Performed By: #### 4 [id number] #### [facility] [address] [address] [address] Laurita Hooker Performed by: Comment Normal [facility] Comment on above: Result Comment: Mar Plunkett, Marriage Performer (ASCP) Performed at: WB Performed By: #### 4 [id number] #### [facility] [address] [place] [address] Dr. Laurita Hooker Specimen adequacy: Comment Normal [facility] Comment on above: Result Comment: Sati sfactory for evaluation. Endocervical and/or squamous metaplastic cells (endocervical component) are present. Performed at: WB Performed By: #### 4 [id number] #### [facility] [address] [address] [address] Laurita Hook[facility] Normal Negative [facility] Comment on above: Performed By: #### H EPACUT #### [facility] [address] [place] [address] Dr. Laurita Hooker HCV AB <0.1 Normal 0.0-0.9 [facility] Comment on above: Performed By: #### H EPACUT #### [facility] [address] [place] [address] Dr. Laurita Hooker Hep A Ab, IgM Negative Normal Negative [facility] Comment on above: Performed By: #### H EPACUT #### [facility] [address] [place] [address] Dr. Laurita Hooker Hep B Core Ab, IgM Negative Normal Negative [facility] Comment on above: Performed By: #### H EPACUT #### [facility] [address] [address] [address] Laurita Hooker Interpretation: Comment Normal [facility] Comment on above: Result Comment: Billy kam Not infected with HCV, unless recent infection is suspected or other evidence exists to indicate HCV infection. Performed By: #### H EPACUT #### [facility] [address] [address] [address] Laurita Hooker Encounters Encounter Date Encounter Type Care Provider Facility Start: 09-01-2023 End: 09-01-2023 ambulatory PATY GUADARRAMA Not Available Start: 08-19-2023 End: 08-19-2023 ambulatory [facility] Start: 08-17-2023 End: 08-17-2023 ambulatory KENY DUNCAN [facility] Start: 08-17-2023 Encounter for other preprocedural examination [facility] Start: 08-17-2023 End: 08-17-2023 ambulatory KENY DUNCAN Not Available Start: 08-17-2023 End: 08-17-2023 ambulatory TERRY MCLAUGHLIN Not Available Start: 07-15-2023 End: 07-15-2023 ambulatory SONJA VASQUEZ Not Available Start: 07-09-2023 End: 07-09-2023 [facility] Start: 06-02-2023 End: 06-02-2023 ambulatory [facility] Start: 05-26-2023 End: 05-26-2023 ambulatory [facility] Start: 05-26-2023 End: 05-26-2023 ambulatory [facility] Start: 04-21-2023 End: 04-21-2023 ambulatory [facility] Start: 04-02-2023 End: 04-02-2023 ambulatory [facility] Start: 03-24-2023 End: 03-24-2023 ambulatory [facility] Start: 03-18-2023 Juwan Alvarenga Work Phone: [facility] Comment on above: Gastroesophageal ref lux disease without esophagitis (Primary Dx); Chronic constipation; History of allergic reaction Start: 03-03-2023 End: 03-03-2023 ambulatory PATY GUADARRAMA Not Available Start: 02-24-2023 End: 02-24-2023 ambulatory JUAN MIGUEL ANDREW [facility] Start: 02-19-2023 End: 02-19-2023 ambulatory HENRIETTA HAMILTON [facility] Start: 02-18-2023 End: 02-18-2023 ambulatory TERRY MCLAUGHLIN Not Available Start: 01-14-2023 End: 01-14-2023 ambulatory SONJA VASQUEZ Not Available Start: 06-16-2022 End: 06-17-[address] BRAD CALERO . Facility:[facility] Start: 06-10-2022 End: 06-10-[address] BRAD CALERO . Facility:[facility] Start: 03-11-2022 End: 03-11-[address] BRAD CALERO . Facility:[facility] Start: 09-10-2021 End: 09-10-[address] BRAD CALERO . Facility:[facility] Start: 07-09-2021 End: 07-10-[address] TERRY MCLAUGHLIN Facility:[facility] Procedures Date Procedure Procedure Detail Performing Clinician Start: 06-16-2022 Mammography Terry ferro MD Work Phone: Plan of Treatment Date Care Activity Detail Author Start: 08-30-2027 Screening for malign ant neoplasm of cervix [facility] Start: 09-01-2023 End: 09-01-2023 Patient encounter procedure 09/01/2023 11:30 AM EDT Office Visit [facility] [address] [place] [address] Paty Guadarrama, DO [address] [place] [address] [facility] Start: 08-17-2023 End: 08-17-2023 Patient encounter procedure 08/17/2023 10:45 AM EDT Office Visit [facility] [address] [place] [address] Terry Mclaughlin MD [address] [place] [id number] [facility] Start: 07-15-2023 End: 07-15-2023 Patient encounter procedure 07/15/2023 11:00 AM EDT Office Visit [facility] [address] [place] [id number] Jr. Sonja Saleh, DO [address] [place] [address] [facility] Start: 06-17-2023 Screening for malign ant neoplasm of breast Mammogram [facility] Start: 10-17-2022 Influenza vaccination Influenza Vacc ine (#1) [facility] Start: 10-09-1983 Screening for malign ant neoplasm of cervix Pap Smear [facility] Start: 1960 Screening for malign ant neoplasm of colon [facility] Immunizations Immunization Date Immunization Notes Care Provider [facility]2021 Moderna Bivalent Val[place] ster Vaccination Terry Mclaughlin MD Work Phone: [facility] 12-27-2018 influenza, injectabl e, quadrivalent, preservative free Terry Mclaughlin MD Work Phone: [facility] 12-27-2018 influenza virus vacc ine, unspecified formulation Terry Mclaughlin MD Work Phone: [facility] Healthcare Payers Date Payer Category Payer Unknown BCBS BCBS [id number] 2021-Present [phone] [address] [place] [address] [id number] 1960 Unknown [id number] 2.16.840.1.508343.3.579.2.593 1960 Unknown [id number] 2.16.840.1.274360.3.579.2.593 1962 Unknown [id number] 2.16.840.1.766239.3.579.2.593 1962 Unknown [id number] 2.16.840.1.992469.3.579.2.593 1962 Unknown [id number] 2.16.840.1.876390.3.579.2.593 1962 Unknown [id number] 2.16.840.1.199968.3.579.2.1286 1962 Unknown [id number] 2.16.840.1.793356.3.579.2.1285 1962 Unknown [id number] 2.16.840.1.269063.3.579.2.128 1962 Unknown [id number] 2.840.1.797838.3.579.2.128 1962 Unknown [id number] 2.16840.1.337295.3.579.2.128 1962 Unknown [id number] 2.16840.1.726482.3.579.2.128 1962 Unknown [id number] 2.16.840.1.902543.3.579.2.1286 1962 Unknown [id number] 2.16840.1.840662.3.579.2.128 1962 Unknown [id number] 2.16.840.1.675881.3.579.2.128 1962 Unknown [id number] 2.16.840.1.040084.3.579.2.128 1962 Unknown [id number] 2.16.840.1.869433.3.579.2.128 1962 Unknown [id number] 2.16.840.1.973347.3.579.2.1285 1962 Unknown [id number] 2.16.840.1.256866.3.579.2.1286 1962 Unknown [id number] 2.16.840.1.239789.3.579.2.6 1962 Unknown [id number] 2.16.840.1.256464.3.579.2.6 1962 Unknown [id number] 2.16.840.1.548497.3.579.2.1258 1962 Unknown [id number] 2.16.840.1.107360.3.579.2.1258 1962 Unknown [id number] 2.16.840.1.951316.3.579.2.1258 1962 Unknown [id number] 2.16.840.1.616592.3.579.2.1258 1962 Unknown [id number] 2.16.840.1.044114.3.579.2.1258 1962 Unknown [id number] 2.16.840.1.642193.3.579.2.9 1962 Unknown [id number] 2.16.840.1.607833.3.579.2.1258 1962 Unknown [id number] 2.16.840.1.326826.3.579.2.9 1962 Unknown [id number] 2.16.840.1.990705.3.579.2.1258 1962 Unknown [id number] 2.16.840.1.978120.3.579.2.1259 1959 Unknown [id number] Social History Date Type Detail Facility Start: 02-18-2023 Tobacco smoking stat [facility] Ex-smoker [facility] History of tobacco use Current smoker [facility] History of tobacco use Cigarette Smoker [facility] Start: 02-18-2023 Tobacco use and exposure Smokeless t obacco non-user [facility] Start: 03-03-2023 Alcohol intake Lifetime non-d kulwinder (finding) [facility] Start: 02-18-2023 End: 03-03-2023 History of Social function [facility] Start: 02-18-2023 End: 03-03-2023 Tobacco use panel [facility] Start: 1960 Sex Assigned At Not on file [facility] Clinical Note 08-18-2023 Note Date & Type Note Facility 08-18-2023 Note XR CHEST 2 VWS Clinical history:Former smoker. Preop evaluation. PA and lateral chest:08/17/2023 Comparison:06/08/2009 Findings: 2 views of the chest were obtained. There is no focal pulmonary infiltrate. No pneumothorax or pleural effusion is present. Mediastinal contours are stable IMPRESSION: No acute infiltrate. Finalized by Pascual Castro MD on 08/18/2023 6:35 AM [facility] Evaluation note Note Date & Type Note Facility Evaluation note Diagnosis Gastroesophageal reflux disease without esophagitis- Primary Esophageal reflux Chronic constipation Unspecified constipation History of allergic reaction documented in this encounter [facility] Summary Purpose Family History No Family History Records FoundNo Family History Records FoundNo Family History Records Found Advance Directives No Advanced Directives Records FoundNo Advanced Directives Records FoundNo Advanced Directives Records Found Additional Source Comments INFORMATION SOURCE (unrecogn ized section and content) DATE CREATED AUTHOR 06/20/2022 [facility] DATE CREATED AUTHOR AUTHOR'S ORGANIZ ATION 08/20/2023 [facility] DATE CREATED AUTHOR AUTHOR'S ORGANIZ ATION 09/05/2023 [facility]IC Reason for Visit (unrecogniz ed section and content) Reason Comments Med Refill Care Teams (unrecognized sec tion and content) 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 This clinical summary was aggregated from multiple sources. Caution should be exercised in using it in the provision of clinical care. This summary normalizes information from multiple sources, and as a consequence, information in this document may materially change the coding, format and clinical context of patient data. In addition, data may be omitted in some cases. CLINICAL DECISIONS SHOULD BE BASED ON THE PRIMARY CLINICAL RECORDS. [facility]. provides no warranty or guarantee of the accuracy or completeness of information in this document.
== END 2023-09-07 11:31 | disposition home or self-care (01) ==
LOC: MAMMO 11:30
PROVIDERS: PCP Family Medicine; Visit Provider Obstetrics & Gynecology
DX: Z12.31 Encounter for screening mammogram for malignant neoplasm of breast (principal)
CPT/HCPCS: 77063; 77067

== ENCOUNTER 2023-11-09 15:05 | Outpatient (OUT) | payer BC, SELFPAY ==
[2023-11-09 15:26] LABS: Basophils Absolute Auto 0.1 10^3/uL (0.0-0.1); Basophils Percent Auto 0.8 % (0.2-2.0); Eosinophils Absolute Auto 0.2 10^3/uL (0.0-0.7); Hemoglobin 12.4 g/dL (12.0-16.0); Immature Granulocytes Abs Auto 0.05 10^3/uL (0.00-0.03); Immature Granulocytes Pct Auto 0.8 % (0.0-0.5); Lymphocytes Absolute Auto 1.4 10^3/uL (1.2-3.8); Lymphocytes Percent Auto 22.9 % (20.5-60.0); Mean Corpuscular Hemoglobin 27.9 pg (26.7-34.0); Mean Corpuscular Volume 89.9 fL (81.0-99.0); Monocytes Absolute Auto 0.4 10^3/uL (0.3-0.8); Monocytes Percent Auto 6.8 % (1.7-12.0); Neutrophils Absolute Auto 3.9 10^3/uL (1.4-6.5); Neutrophils Percent Auto 65.7 % (43.0-75.0); Platelet Count 246 10^3/uL (150-450); Red Blood Count 4.45 10^6/uL (4.20-5.40); Red Cell Distribution Width 14.1 % (11.0-15.0)
[2023-11-09 15:39] LABS: Erythrocyte Sedimentation Rate 20 mm/hr (<=30)
[2023-11-09 15:58] LABS: C Reactive Protein <0.50 mg/dL (<=0.50)
== END 2023-11-09 15:06 | disposition home or self-care (01) ==
LOC: LAB 15:06
PROVIDERS: PCP Family Medicine; Visit Provider Orthopaedic Surgery
DX: M25.561 Pain in right knee (principal)
CPT/HCPCS: 36415; 85025; 85652; 86140

== ENCOUNTER 2023-11-23 14:31 | Outpatient (OUT) | payer BC, SELFPAY ==
--- OUTSIDE RECORDS SUMMARY | 2023-11-23 14:55 | XMS_ITS | CCD ---
Author Organization [facility] Care Team Providers Care Tire Spotter Name Role Phone ARNOLDO, DR TERRY Hines Admitting Unavailable NADERER, DR TERRY Hines Attending Unavailable NADERER, DR TERRY Hines Consulting Unavailable NADERER, DR TERRY Hines Primary Care Unavailable [...] e Terry Mclaughlin MD Primary Care Provider ELLSWORTHENCE Attending Unavailable HENRIETTA HAMILTON Attending Unavailable LORRIE, JUAN MIGUEL Attending Unavailable ALFONSOHENRIETTA TEMPLETON Attending Unavailable ALFONSOHENRIETTA TEMPLETON Attending Unavailable LORRIE, JUAN MIGUEL Attending Unavailable HENRIETTA HAMILTON Attending Unavailable KENY DUNCAN Referring Unavailable KENY DUNCAN Referring Unavailable KENY DUNCAN Referring Unavailable DUNCAN, KENY Guevara Referring Unavailable ALFONSOHENRIETTA TEMPLETON Attending Unavailable LORRIE, JUAN MIGUEL Attending Unavailable LORRIE, JUAN MIGUEL Attending Unavailable LORRIE, JUAN MIGUEL Attending Unavailable HENRIETTA HAMILTON Attending Unavailable LORRIEJUAN MIGUEL WHELAN Attending Unavailable LORRIEJUAN MIGUEL WHELAN Attending Unavailable HENRIETTA HAMILTON Attending Unavailable TERRY MCLAUGHLIN Attending Unavailable PATY GUADARRAMA Attending Unavailable STEPANIC, JR., SONJA Ivory Attending Unavaila ble STEPANIC, JR., SONJA Ivory Referring Unavaila ble STEPANIC, JR., SONJA Ivory Attending Unavaila ble STEPANIC, JR., SONJA Ivory Referring Unavaila ble TERRY MCLAUGHLIN Attending Unavailable KENY DUNCAN Attending Unavailable PATY GUADARRAMA Attending Unavailable PATY GUADARRAMA Referring Unavailable YON VELAZQUEZ Attending Unavailable STEPANIC, JR., SONJA Ivory Referring Unavaila ble VELAZQUEZYON APODACA Attending Unavailable STEPANIC, JR., SONJA Ivory Referring Unavaila ble VELAZQUEZ, YON Sylvester Attending Unavailable YON VELAZQUEZ Attending Unavailable STEPANIC, JR., SONJA Ivory Referring Unavaila ble KENY DUNCAN Attending Unavailable YON VELAZQUEZ Attending Unavailable STEPANIC, JR., SONJA Ivory Referring Unavaila ble VELAZQUEZYON DIAZ Attending Unavailable STEPANIC, JR., SONJA Ivory Referring Unavaila ble BRUNA LEÓN Attending Unavailable STEPANIC, JR., SONJA Ivory Referring Unavaila ble BRUNA LEÓN Attending Unavailable STEPANIC, JR., SONJA Ivory Referring Unavaila ble BRUNA LEÓN Attending Unavailable STEPANIC, JR., SONJA Ivory Referring Unavaila ble ANJELICA SCHMIDT Attending Unavailable STEPANIC, JR., SONJA Ivory Referring Unavaila ble KENY DUNCAN Attending Unavailable KENY DUNCAN Referring Unavailable ANJELICA SCHMIDT Attending Unavailable STEPANIC, JR., SONJA Ivory Referring Unavaila ble KENY DUNCAN Attending Unavailable UNA MAYNARD Attending Unavailable STEPANIC, JR., SONJA Ivory Referring Unavaila ble BRUNA LEÓN Attending Unavailable STEPANIC, JR., SONJA Ivory Referring Unavaila ble STEPANIC, JR., SONJA Ivory Attending Unavaila ble TERRY MCLAUGHLIN Attending Unavailable Allergies Allergy Classification Reported Allergen(s) Allergy Type Date of Onset Reaction(s) Facility (1 source) bee venom Drug allergy (disorder) 04-03-19 14 [facility] (1 source) Erythromycin Drug Allergy 04-03-19 14 [facility] (1 source) Sulfonamides (Antibiotic) Drug allergy (disorder) 04-03-19 14 [facility] (2 sources) Erythromycin; Translations: [ERYTHROMYCIN] Drug Allergy 06-19-[address] [facility] (1 source) Honey bee venom Allergy to substance 08-30-[address] [facility] (1 source) Sulfamethoxazole / Trimethoprim Drug Allergy 07-17-[address] [facility] (1 source) Sulfonamides (Antibiotic) Drug Allergy 06-19-19 Swelling, Rash [facility] (1 source) Sulfonamides (Antibiotic); Translations: [SULFA (SULFONAMIDE ANTIBIOTICS)] Propensity to adverse reactions to drug (disorder) 06-19-19 [facility] Medications Current Medications Medication Drug Class(es) Dates Sig (Normalized) Sig (Original) acetaminophen 325 mg / HYDROcodone bitartrate 5 mg oral tablet (1 source) Opioid Agonist Start: 06-24-2022 take 1 tablet by mouth four times daily as needed HYDROcodone-acetamin ophen ([place]) 5-325 MG tablet Take 1 tablet by [...] a day as needed. 0 06/12/2022 Active [id number] 0.3 ml EPINEPHrine 1 mg/ml auto-injector (2 [...] Castro MD on 08/18/2023 6:34 AM Normal [facility] CBC AND AUTO DIFFon 08-17-19 24 ABSOLUTE BASOPHIL 0.0 X10E9/L Normal 0.0-0.2 [facility] Comment on above: Performed By: #### P INR, 44618-0 #### [facility] ([id number]) [address] [place] [address] 06466 #### CMP, CBCA #### [facility] ([id number]) [address] [place] [address] ABSOLUTE NEUTROPHIL 3.7 X10E9/L Normal 1.5-6.6 [facility] Comment on above: Performed By: #### P INR, 42497-3 #### [facility] ([id number]) [address] [place] [address] 46511 #### CMP, CBCA #### [facility] ([id number]) [address] [place] [address] Basophils/100 WBC (Bld) 0.8 % Normal [facility] Comment on above: Performed By: #### P INR, 88169-8 #### [facility] ([id number]) [address] [place] [address] 34058 #### CMP, CBCA #### [facility] ([id number]) [address] [place] [address] Eosinophils (Bld) [#/Vol] 0.1 10*3/uL Normal 0.0-0.4 [facility] Comment on above: Performed By: #### P INR, 71600-2 #### [facility] ([id number]) [address] [place] [address] 79471 #### CMP, CBCA #### [facility] ([id number]) [address] [place] [address] Eosinophils/100 WBC (Bld) 2.4 % Normal [facility] Comment on above: Performed By: #### P INR, 51934-3 #### [facility] ([id number]) [address] [place] [address] 83802 #### CMP, CBCA #### [facility] ([id number]) [address] [place] [address] Erythrocyte distribution width (RBC) [Ratio] 14.6 % Normal 11.5-15.0 [facility] Comment on above: Performed By: #### P INR, 31891-0 #### [facility] ([id number]) [address] [place] [address] 13797 #### CMP, CBCA #### [facility] ([id number]) [address] [place] [address] Hematocrit (Bld) [Volume fraction] 38.0 % Normal 35-47 [facility] Comment on above: Performed By: #### P INR, 19800-8 #### [facility] ([id number]) [address] [place] [address] 39945 #### CMP, CBCA #### [facility] ([id number]) [address] [place] [address] Hemoglobin (Bld) [Mass/Vol] 13.1 g/dL Normal 11.7-15.5 [facility] Comment on above: Performed By: #### P INR, 85185-2 #### [facility] ([id number]) [address] [place] [address] 53967 #### CMP, CBCA #### [facility] ([id number]) [address] [place] [address] Lymphocytes (Bld) [#/Vol] 1.2 10*3/uL Normal 1.0-3.5 [facility] Comment on above: Performed By: #### P INR, 37114-3 #### [facility] ([id number]) [address] [place] [address] 66579 #### CMP, CBCA #### [facility] ([id number]) [address], [address] [place] [address] Lymphocytes/100 WBC (Bld) 23.1 % Normal [facility] Comment on above: Performed By: #### P INR, 58259-4 #### [facility] ([id number]) [address] [place] [address] 72813 #### CMP, CBCA #### [facility] ([id number]) [address], [address] [place] [address] MCH (RBC) [Entitic mass] 30.2 pg Normal 27-34 [facility] Comment on above: Performed By: #### P INR, 05139-9 #### [facility] ([id number]) [address] [place] [address] 77951 #### CMP, CBCA #### [facility] ([id number]) [address], [address] [place] [address] MCHC (RBC) [Mass/Vol] 34.6 g/dL Normal 32-36 [facility] Comment on above: Performed By: #### P INR, 31291-2 #### [facility] ([id number]) [address] [place] [address] 21564 #### CMP, CBCA #### [facility] ([id number]) [address], [address] [place] [address] MCV (RBC) [Entitic vol] 87 fL Normal 80-100 [facility] Comment on above: Performed By: #### P INR, 02817-5 #### [facility] ([id number]) [address] [place] [address] 95001 #### CMP, CBCA #### [facility] ([id number]) [address], [address] [place] [address] Monocytes (Bld) [#/Vol] 0.3 10*3/uL Normal 0-0.9 [facility] Comment on above: Performed By: #### P INR, 56167-4 #### [facility] ([id number]) [address] [place] [address] 27315 #### CMP, CBCA #### [facility] ([id number]) [address] [place] [address] Monocytes/100 WBC (Bld) 5.8 % Normal [facility] Comment on above: Performed By: #### P INR, 78193-6 #### [facility] ([id number]) [address] [place] [address] 15267 #### CMP, CBCA #### [facility] ([id number]) [address], [address] [place] [address] Neutrophils/100 WBC (Bld) 67.9 % Normal [facility] Comment on above: Performed By: #### P INR, 56486-7 #### [facility] ([id number]) [address] [place] [address] 69397 #### CMP, CBCA #### [facility] ([id number]) [address] [place] [address] Platelet mean volume (Bld) [Entitic vol] 8.9 fL Normal 7-12 [facility] Comment on above: Performed By: #### P INR, 37998-7 #### [facility] ([id number]) [address] [place] [address] 13523 #### CMP, CBCA #### [facility] ([id number]) [address], [address] [place] [address] Platelets (Bld) [#/Vol] 271 10*3/uL Normal 150-450 [facility] Comment on above: Performed By: #### P INR, 79318-9 #### [facility] ([id number]) [address] [place] [address] 08245 #### CMP, CBCA #### [facility] ([id number]) [address] [place] [address] RBC COUNT 4.35 X10E12/L Normal 3.80-5.20 [facility] Comment on above: Performed By: #### P INR, 11553-4 #### [facility] ([id number]) [address] [place] [address] 00695 #### CMP, CBCA #### [facility] ([id number]) [facility] [place] [address] WBC (Bld) [#/Vol] 5.4 10*3/uL Normal 4.0-11.0 [facility] Comment on above: Performed By: #### P INR, 51292-6 #### [facility] ([id number]) [address] [place] [address] 32269 #### CMP, CBCA #### [facility] ([id number]) [address] [place] [address], [address] [place] [address] COMPREHENSIVE METABOLIC PANE Jama 08-17-2023 Albumin [Mass/Vol] 4.4 g/dL Normal 3.2-5.3 [facility] Comment on above: Performed By: #### P INR, 14730-9 #### [facility] ([id number]) [address] [place] [address] 01771 #### CMP, CBCA #### [facility] ([id number]) [facility] [facility] [address], [address] [place] [address] ALP [Catalytic activity/Vol] 92 U/L Normal 39-130 [facility] Comment on above: Performed By: #### P INR, 97944-6 #### [facility] ([id number]) [address] [place] [address] 20354 #### CMP, CBCA #### [facility] ([id number]) [address], [address] [place] [address] ALT [Catalytic activity/Vol] 24 U/L Normal 0-31 [facility] Comment on above: Performed By: #### P INR, 74176-7 #### [facility] ([id number]) [address] [place] [address] 67329 #### CMP, CBCA #### [facility] ([id number]) [address] [place] [address] Anion gap [Moles/Vol] 9 mmol/L Normal 5-15 [facility] Comment on above: Performed By: #### P INR, 25468-8 #### [facility] ([id number]) [address] [place] [address] 95964 #### CMP, CBCA #### [facility] ([id number]) [address] [place] [address] AST [Catalytic activity/Vol] 20 U/L Normal 0-41 [facility] Comment on above: Performed By: #### P INR, 04208-6 #### [facility] ([id number]) [address] [place] [address] 19264 #### CMP, CBCA #### [facility] ([id number]) [address], [address] [place] [address] Bilirubin [Mass/Vol] 0.2 mg/dL Low 0.3-1.2 [facility] Comment on above: Performed By: #### P INR, 78915-6 #### [facility] ([id number]) [address] [place] [address] 49661 #### CMP, CBCA #### [facility] ([id number]) [address] [place] [address] Calcium [Mass/Vol] 9.2 mg/dL Normal 8.5-10.5 [facility] Comment on above: Performed By: #### P INR, 86504-9 #### [facility] ([id number]) [address] [place] [address] 43200 #### CMP, CBCA #### [facility] ([id number]) [address], [address] [place] [address] Chloride [Moles/Vol] 109 mmol/L Normal 98-109 [facility] Comment on above: Performed By: #### P INR, 09661-9 #### [facility] ([id number]) [address] [place] [address] 57009 #### CMP, CBCA #### [facility] ([id number]) [address], [address] [place] [address] CO2 [Moles/Vol] 23 mmol/L Normal 22-32 [facility] Comment on above: Performed By: #### P INR, 01595-1 #### [facility] ([id number]) [address] [place] [address] 13245 #### CMP, CBCA #### [facility] ([id number]) [address], [address] [place] [address] Creatinine [Mass/Vol] 0.75 mg/dL Normal 0.40-1.00 [facility] Comment on above: Result Comment: METH OD TRACEABLE TO IDMS STANDARD Performed By: #### P INR, 23161-0 #### [facility] ([id number]) [address] [place] [address] 79969 #### CMP, CBCA #### [facility] ([id number]) [address], [address] [place] [address] eGFR (CKD-EPI) NON-RACE DEPENDENT >90 Normal >59 [facility] Comment on above: Result Comment: Reported eGFR is based on the CKD-EPI 1 equation that does not use a race coefficient. Performed By: #### P INR, 10305-3 #### [facility] ([id number]) [address] [place] [address] 98168 #### CMP, CBCA #### [facility] ([id number]) [address], [address] [place] [address] Glucose [Mass/Vol] 109 mg/dL High 65-99 [facility] Comment on above: Performed By: #### P INR, 59081-9 #### [facility] ([id number]) [address] [place] [address] 47142 #### CMP, CBCA #### [facility] ([id number]) [address], [address] [place] [address] Potassium [Moles/Vol] 3.8 mmol/L Normal 3.5-5.0 [facility] Comment on above: Performed By: #### P INR, 68843-4 #### [facility] ([id number]) [address] [place] [address] 08633 #### CMP, CBCA #### [facility] ([id number]) [address], [address] [place] [address] Protein [Mass/Vol] 7.0 g/dL Normal 6.0-8.0 [facility] Comment on above: Performed By: #### P INR, 15955-4 #### [facility] ([id number]) [address] [place] [address] 30534 #### CMP, CBCA #### [facility] ([id number]) [address] [place] [address] Sodium [Moles/Vol] 141 mmol/L Normal 134-146 [facility] Comment on above: Performed By: #### P INR, 36496-4 #### [facility] ([id number]) [address] [place] [address] 61723 #### CMP, CBCA #### [facility] ([id number]) [address], [address] [place] [address] Urea nitrogen [Mass/Vol] 18 mg/dL Normal 5-23 [facility] Comment on above: Performed By: #### P INR, 77400-2 #### [facility] ([id number]) [address] [place] [address] 18536 #### CMP, CBCA #### [facility] ([id number]) [address] [place] [address] PROTIME AND INRon 08-17-2023 INR Coag (PPP) [Relative time] 1.0 {INR} Normal 0.8-1.1 [facility] Comment on above: Performed By: #### P INR, 86934-7 #### [facility] ([id number]) [address] [place] [address] 32811 #### CMP, CBCA #### [facility] ([id number]) [address] [place] [address] PT Coag (PPP) [Time] 11.8 s Normal 9.8-13.2 [facility] Comment on above: Result Comment: NEW REFERENCE RANGE Performed By: #### P INR, 35378-6 #### [facility] ([id number]) [address] [place] [address] 07732 #### CMP, CBCA #### [facility] ([id number]) [address] [place] [address] URINALYSISon 08-17-2023 Bilirubin Ql (U) Negative Normal NEG [facility] Comment on above: Performed By: #### U A #### [facility] ([id number]) [address], [address] [place] [address] BLOOD/HGB Negative Normal NEG [facility] Comment on above: Performed By: #### U A #### [facility] ([id number]) [address], [address] [place] [address] CA OXALATE CRYSTALS PRESENT Abnormal [facility] Comment on above: Performed By: #### U A #### [facility] ([id number]) [address] [place] [address] Color (U) YELLOW Normal YELLOW [facility] Comment on above: Performed By: #### U A #### [facility] ([id number]) [address] [place] [address] Glucose Ql (U) Negative Normal NEG [facility] Comment on above: Performed By: #### U A #### [facility] ([id number]) [address] [place] [address] Ketones Ql (U) Negative Normal NEG [facility] Comment on above: Performed By: #### U A #### [facility] ([id number]) [address], [address] [place] [address] Leukocyte esterase Test strip Ql (U) Small Abnormal NEG [facility] Comment on above: Performed By: #### U A #### [facility] ([id number]) [address], [address] [place] [address] MUCOUS PRESENT Abnormal NONE [facility] Comment on above: Performed By: #### U A #### [facility] ([id number]) [address] [place] [address] Nitrite Ql (U) Negative Normal NEG [facility] Comment on above: Performed By: #### U A #### [facility] ([id number]) [address], [address] [place] [address] pH (U) 6.0 [pH] Normal 5.0-8.5 [facility] Comment on above: Performed By: #### U A #### [facility] ([id number]) [address] [address] [place] [address] Protein Ql (U) Negative Normal NEG [facility] Comment on above: Performed By: #### U A #### [facility] ([id number]) [address] [address] [place] [address] R.B.CELLS 1 /hpf Normal 0-5 [facility] Comment on above: Performed By: #### U A #### [facility] ([id number]) [address], [address] [place] [address] Specific gravity (U) [Rel density] 1.021 Normal 1.003-1.035 [facility] Comment on above: Performed By: #### U A #### [facility] ([id number]) [address], [address] [place] [address] SQUAMOUS EPITHELIUM 1 /hpf Normal 0-5 [facility] Comment on above: Performed By: #### U A #### [facility] ([id number]) [address] [place] [address] TURBIDITY CLEAR Normal CLEAR [facility] Comment on above: Performed By: #### U A #### [facility] ([id number]) [address], [address] [place] [address] Urobilinogen (U) [Mass/Vol] mg/dL Normal <1.1 [facility] Comment on above: Performed By: #### U A #### [facility] ([id number]) [address], [address] [place] [address] W.B.CELLS 3 /hpf Normal 0-5 [facility] Comment on above: Performed By: #### U A #### [facility] ([id number]) [address], [address] [place] [address] URINE CULTUREon 08-17-2023 Bacteria identified Cx Nom [...] F TRIMETH/SULFAMETHOXAZO LE S <=1/19 F Susceptible [facility] Comment on above: Performed By: #### 6 30-4 #### [facility] ([id number]) [address], [address] [place] [address] aPTT Coag (PPP) [Time]on aPTT Coag (Bld) [Time] 30 s Normal 26-37 [facility] Comment on above: Result Comment: NEW REFERENCE RANGE Performed By: #### P INR, 44878-4 #### [facility] ([id number]) [address] [place] [address], [place] [address] #### CMP, CBCA #### [facility] ([id number]) [address] [place] [address] PAP ACOG PANEL 2: 30 to 65on 06-18-2022 . . Normal [facility] Comment on above: Result Comment: Perf ormed at: WB Performed By: #### [id number] #### [facility] [address] [address] [address] Laurita Hooker Age Gdln ACOG Testing 30-65 Normal [facility] Comment on above: Performed By: #### [id number] #### [facility] [address] [address] [address] Laurita Hooker DIAGNOSIS: Comment Abnormal [facility] Comment on above: Result Comment: EPIT HELIAL CELL ABNORMALITY. LOW GRADE SQUAMOUS INTRAEPITHELIAL LESION (LSIL). Performed at: WB Performed By: #### [id number] #### [facility] [address] [address] [address] Laurita Hooker Electronically signed by: Comment Normal [facility] Comment on above: Result Comment: Leeann Carrera MD, Pathologist Performed at: WB Performed By: #### [id number] #### [facility] [address] [place] [address] Dr. Laurita Hooker HPV Aptima Positive Abnormal Negative [facility] Comment on above: Result Comment: This nucleic acid amplification test detects fourteen high-risk HPV types (16,18,31,33,35,39,45,51,52,56,58,59,66,68) without differentiation. Performed at: =G Performed By: #### [id number] #### [facility] [address] [place] [address] Dr. Laurita Hooker HPV Genotype Reflex Comment Normal [facility] Comment on above: Result Comment: Crit eria not met, HPV Genotype not performed. Performed at: WB Performed By: #### [id number] #### [facility] [address] [place] [address] Dr. Laurita Hooker Methodology: Comment Normal [facility] Comment on above: Result Comment: This liquid based ThinPrep(R) pap test was screened with the use of an image guided system. Performed at: WB Performed By: #### [id number] #### [facility] [address] [place] [address] Dr. Laurita Hooker Note: Comment Normal [facility] Comment on above: Result Comment: The Pap smear is a screening test designed to aid in the detection of premalignant and malignant conditions of the uterine cervix. It is not a diagnostic procedure and should not be used as the sole means of detecting cervical cancer. Both false-positive and false-negative reports do occur. . Performed at: WB Performed By: #### [id number] #### [facility] [address] [address] [address] Laurita Hooker Pathologist Provided ICD10 Comment Normal [facility] Comment on above: Result Comment: R87. 612 Performed at: WB Performed By: #### [id number] #### [facility] [address] [address] [address] Laurita Hooker Performed by: Comment Normal [facility] Comment on above: Result Comment: Ashley Pena, Postal Sorting Officer (ASCP) Performed at: WB Performed By: #### [id number] #### [facility] [address] [place] [address] Dr. Laurita Hooker Recommendation: Comment Abnormal [facility] Comment on above: Result Comment: Sugg est follow up as clinically appropriate. Performed at: WB Performed By: #### [id number] #### [facility] [address] [place] [address] Dr. Laurita Hooker Specimen adequacy: Comment Normal [facility] Comment on above: Result Comment: Sati sfactory for evaluation. Endocervical and/or squamous metaplastic cells (endocervical component) are present. Performed at: WB Performed By: #### [id number] #### [facility] [address] [place] [address] Dr. Laurita Hooker MG MAMM SCREEN 3D JAYCE CADon 06-16-2022 MG MAMM SCREEN 3D JAYCE CAD Patient: MANUEL RANDHAWA Exam Date: 06/16/2022 : 1960 Gender:F Ordering : DR BRAD CALERO . Admission #: [id number] Family : Order #: [id number] CLICK HERE TO VIEW EXAM RADIOLOGY REPORT [...] No Treatments None Family Cancers None LOCATION: [facility] BREAST COMPOSITION: Scattered areas fibroglandular density. [...] Redd M.D. on 06/16/2022 at 14:21 Normal [facility] XR DEXA BONE DENSITYon 06-16 XR [...] by: MALDONADO REDD Date: 2022-06-16 15:27 Normal [facility] PAP ACOG PANEL 2: 30 to 65on 03-19-2022 . . Normal [facility] Comment on above: Result Comment: Perf ormed at: WB Performed By: #### [id number] #### [facility] [address] [place] [address] Dr. Laurita Hooker Age Gdln ACOG Testing 30-65 Normal [facility] Comment on above: Performed By: #### [id number] #### [facility] [address] [place] [address] Dr. Laurita Hooker DIAGNOSIS: Comment Abnormal [facility] Comment on above: Result Comment: EPIT HELIAL CELL ABNORMALITY. LOW-GRADE SQUAMOUS INTRAEPITHELIAL LESION (LSIL); (ENCOMPASSING HUMAN PAPILLOMAVIRUS /MILD DYSPLASIA/CIN1). Performed at: WB Performed By: #### [id number] #### [facility] [address] [place] [address] Dr. Laurita Hooker Electronically signed by: Comment Normal [facility] Comment on above: Result Comment: Allie Nowak MD, Pathologist Performed at: WB Performed By: #### [id number] #### [facility] [address] [place] [address] Dr. Laurita Hooker HPV Aptima Positive Abnormal Negative [facility] Comment on above: Result Comment: This nucleic acid amplification test detects fourteen high-risk HPV types (16,18,31,33,35,39,45,51,52,56,58,59,66,68) without differentiation. Performed at: =G Performed By: #### [id number] #### [facility] [address] [place] [address] Dr. Laurita Hooker HPV Genotype Reflex Comment Normal [facility] Comment on above: Result Comment: Crit eria not met, HPV Genotype not performed. Performed at: WB Performed By: #### [id number] #### [facility] [address] [place] [address] Dr. Laurita Hooker Methodology: Comment Normal [facility] Comment on above: Result Comment: This liquid based ThinPrep(R) pap test was screened with the use of an image guided system. Performed at: WB Performed By: #### [id number] #### [facility] [address] [place] [address] Dr. Laurita Hooker Note: Comment Normal [facility] Comment on above: Result Comment: The Pap smear is a screening test designed to aid in the detection of premalignant and malignant conditions of the uterine cervix. It is not a diagnostic procedure and should not be used as the sole means of detecting cervical cancer. Both false-positive and false-negative reports do occur. . Performed at: WB Performed By: #### [id number] #### [facility] [address] [address] [address] Laurita Hooker Pathologist Provided ICD10 Comment [facility] Comment on above: Result Comment: R87. 612 Performed at: WB Performed By: #### [id number] #### [facility] [address] [place] [address] Dr. Laurita Hooker Performed by: Comment Normal [facility] Comment on above: Result Comment: Kamran Krishnamurthy, Postal Sorting Officer (ASCP) Performed at: [facility] Performed By: #### [id number] #### [facility] [address] [place] [address] Dr. Laurita Hooker Recommendation: Comment Abnormal [facility] Comment on above: Result Comment: Sugg est follow up as clinically appropriate. Performed at: WB Performed By: #### [id number] #### [facility] [address] [place] [address] Dr. Lauirta Hooker Specimen adequacy: Comment Normal [facility] Comment on above: Result Comment: Sati sfactory for evaluation. Endocervical and/or squamous metaplastic cells (endocervical component) are present. Performed at: WB Performed By: #### [id number] #### [facility] [address] [place] [address] Dr. Laurita Hooker PAP ACOG PANEL 2: 30 to 65on 09-17-2021 . . Normal [facility] Comment on above: Result Comment: Perf ormed at: WB Performed By: #### [id number] #### [facility] [address] [place] [address] Dr. Laurita Hooker Age Gdln ACOG Testing 30-65 [facility] Comment on above: Performed By: #### [id number] #### [facility] [address] [place] [address] Dr. Laurita Hooker DIAGNOSIS: Comment [facility] Comment on above: Result Comment: NEGA TIVE FOR INTRAEPITHELIAL LESION OR MALIGNANCY. Performed at: WB Performed By: #### [id number] #### [facility] [address] [place] [address] Dr. Laurita Hooker HPV Aptima Positive Abnormal Negative [facility] Comment on above: Result Comment: This nucleic acid amplification test detects fourteen high-risk HPV types (16,18,31,33,35,39,45,51,52,56,58,59,66,68) without differentiation. Performed at: =G Performed By: #### [id number] #### [facility] [address] [address] [address] Laurita Hooker HPV Genotype 16 Positive Abnormal Negative [facility] Comment on above: Result Comment: Perf ormed at: =G Performed By: #### [id number] #### [facility] [address] [place] [address] Dr. Laurita Hooker HPV Genotype 18,45 Negative Normal Negative [facility] Comment on above: Result Comment: Perf ormed at: =G Performed By: #### [id number] #### [facility] [address] [place] [address] Dr. Laurita Hooker Methodology: Comment Normal [facility] Comment on above: Result Comment: This liquid based ThinPrep(R) pap test was screened with the use of an image guided system. Performed at: WB Performed By: #### [id number] #### [facility] [address] [place] [address] Dr. Laurita Hooker Note: Comment Normal [facility] Comment on above: Result Comment: The Pap smear is a screening test designed to aid in the detection of premalignant and malignant conditions of the uterine cervix. It is not a diagnostic procedure and should not be used as the sole means of detecting cervical cancer. Both false-positive and false-negative reports do occur. . Performed at: WB Performed By: #### 4 [id number] #### [facility] [address] [place] [address] Dr. Laruita Hooker Performed by: Comment Normal [facility] Comment on above: Result Comment: Mar Plunkett Postal Sorting Officer (ASCP) Performed at: WB Performed By: #### [id number] #### [facility] [address] [address] [address] Laurita Hooker Specimen adequacy: Comment Normal [facility] Comment on above: Result Comment: Sati sfactory for evaluation. Endocervical and/or squamous metaplastic cells (endocervical component) are present. Performed at: WB Performed By: #### [id number] #### [facility] [address] [address] [address] Laurita Hooker HEPATITIS PANEL, ACUTEon HBsAg Screen Negative Normal Negative [facility] Comment on above: Performed By: #### H EPACUT #### [facility] [address] [address] [address] Laurita Hooker HCV AB <0.1 Normal 0.0-0.9 [facility] Comment on above: Performed By: #### H EPACUT #### [facility] [address] [address] [address] Laurita Hooker Hep A Ab, IgM Negative Normal Negative [facility] Comment on above: Performed By: #### H EPACUT #### [facility] [address] [address] [address] Laurita Hooker Hep B Core Ab, IgM Negative Normal Negative [facility] Comment on above: Performed By: #### H EPACUT #### [facility] [address] [address] [address] Laurita Hooker Interpretation: Comment Normal [facility] Comment on above: Result Comment: Nega tive Not infected with HCV, unless recent infection is suspected or other evidence exists to indicate HCV infection. Performed By: #### H EPACUT #### [facility] [address] [address] [address] Laurita Hooker Encounters Encounter Date Encounter Type Care Provider Facility Start: 11-19-2023 End: 11-19-2023 ambulatory TERRY MCLAUGHLIN Not Available Start: 11-09-2023 End: 11-09-2023 ambulatory SONJA VASQUEZ Not Available Start: 11-06-2023 End: 11-06-2023 ambulatory UNA MAYNARD Not Available Start: 11-04-2023 End: 11-04-2023 ambulatory [facility] Start: 10-29-2023 End: 10-29-2023 ambulatory UNA ALEYDA Not Available Start: 10-28-2023 End: 10-28-2023 ambulatory KENY DUNCAN Not Available Start: 10-21-2023 End: 10-21-2023 ambulatory ANJELICA SCHMIDT Not Available Start: 10-14-2023 End: 10-14-2023 ambulatory KENY DUNCAN Not Available Start: 10-14-2023 End: 10-14-2023 ambulatory ANJELICA SCHMIDT Not Available Start: 10-09-2023 End: 10-09-2023 ambulatory UNA MAYNARD Not Available Start: 09-30-2023 End: 09-30-2023 ambulatory UNA ALEYDA Not Available Start: 09-29-2023 End: 09-29-2023 ambulatory [facility] Start: 09-25-2023 End: 09-25-2023 ambulatory UNA ALEYDA Not Available Start: 09-24-2023 End: 09-24-2023 ambulatory YON VELAZQUEZ Not Available Start: 09-23-2023 End: 09-23-2023 ambulatory YON VELAZQUEZ Not Available Start: 09-22-2023 End: 09-22-2023 ambulatory KENY DUNCAN Not Available Start: 09-17-2023 End: 09-17-2023 ambulatory YON VELAZQUEZ Not Available Start: 09-15-2023 End: 09-15-2023 ambulatory YON VELAZQUEZ Not Available Start: 09-14-2023 End: 09-14-2023 ambulatory YON VELAZQUEZ Not Available Start: 09-10-2023 End: 09-10-2023 ambulatory YON VELAZQUEZ Not Available Start: 09-01-2023 End: 09-01-2023 ambulatory PATY GUADARRAMA Not Available Start: 08-25-2023 End: 08-25-2023 ambulatory [facility] Start: 08-19-2023 End: 08-19-2023 ambulatory HENRIETTA Guevara ALFONSO [facility] Start: 08-17-2023 End: 08-17-2023 ambulatory KENY DUNCAN [facility] Start: 08-17-2023 Encounter for other preprocedural examination [facility] Start: 08-17-2023 End: 08-17-2023 ambulatory KENY DUNCAN Not Available Start: 08-17-2023 End: 08-17-2023 ambulatory TERRY MCLAUGHLIN Not Available Start: 07-15-2023 End: 07-15-2023 ambulatory SONJA VASQUEZ Not Available Start: 07-09-2023 End: 07-09-2023 ambulatory [facility] Start: 06-02-2023 End: 06-02-2023 ambulatory [facility] Start: 05-26-2023 End: 05-26-2023 [facility] Start: 05-26-2023 End: 05-26-2023 ambulatory [facility] Start: 04-21-2023 End: 04-21-2023 ambulatory [facility] Start: 04-02-2023 End: 04-02-2023 ambulatory [facility] Start: 03-24-2023 End: 03-24-2023 ambulatory [facility] Start: 03-18-2023 Refill Terry Alvarenga Work Phone: [facility] Comment on above: Gastroesophageal ref lux disease without esophagitis (Primary Dx); Chronic constipation; History of allergic reaction Start: 03-03-2023 End: 03-03-2023 ambulatory PATY GUADARRAMA Not Available Start: 02-24-2023 End: 02-24-2023 ambulatory [facility] Start: 02-19-2023 End: 02-19-2023 ambulatory [facility] Start: 02-18-2023 End: 02-18-2023 ambulatory TERRY [...] OB [address] [place] [id number] Paty Guadarrama DO [address] [place] [address] [facility] Start: 08-17-2023 End: 08-17-2023 Patient encounter procedure 08/17/2023 10:45 AM EDT Office Visit [facility] [address] [place] [address] Terry Mclaughlin MD [address] [place] [address] [facility] Start: 07-15-2023 End: 07-15-2023 Patient encounter procedure 07/15/2023 11:00 AM EDT Office Visit [facility] [address] [place] [id number] Jr. Sonja Saleh DO [address] [place], [place] [id number] [facility] Start: 06-17-2023 Screening for malign ant neoplasm of breast Mammogram [facility] Start: 10-17-2022 Influenza vaccination Influenza Vacc ine (#1) [facility] Start: 10-09-1983 Screening for malign ant neoplasm of cervix Pap Smear [facility] Start: 1960 Screening for malign ant neoplasm of colon [facility] Immunizations Immunization Date Immunization Notes Care Provider Fa cility 12-03-2021 Moderna Bivalent Valverde ster Vaccination Terry Mclaughlin MD Work Phone: [facility] 12-27-2018 influenza, injectabl e, quadrivalent, preservative free Terry Mclaughlin MD Work Phone: [facility] 12-27-2018 influenza virus vacc ine, unspecified formulation Terry Mclaughlin MD Work Phone: [facility] Payers Date Payer Category Payer Unknown BCBS BCBS [id number] [id number] 2021-Present [phone] [address] [place] [address] [id number]. [id number] 1960 Unknown [id number] 2..840.1.340937.3.579.2.593 1960 Unknown [id number] 2.16.840.1.583473.3.579.2.593 1960 Unknown [id number] 2.16.840.1.175482.3.579.2.593 1962 Unknown [id number] 2.16.840.1.123283.3.579.2.593 1962 Unknown [id number] 2.16.840.1.382684.3.579.2.593 1960 Unknown [id number] 2.16.840.1.776391.3.579.2.1286 1962 Unknown [id number] 2.16.840.1.523993.3.579.2.1285 1962 Unknown [id number] 2.16.840.1.454476.3.579.2.1285 1962 Unknown [id number] 2.16.840.1.708594.3.579.2.1285 1962 Unknown [id number] 2.16.840.1.451947.3.579.2.1285 1962 Unknown [id number] 2.16.840.1.611774.3.579.2.1285 1962 Unknown [id number] 2.16.840.1.517076.3.579.2.1285 1962 Unknown [id number] 2.16.840.1.910537.3.579.2.1285 1962 Unknown [id number] 2.16840.1.296603.3.579.2.1285 1962 Unknown [id number] 2.16.840.1.908054.3.579.2.1285 1962 Unknown [id number] 2.16.840.1.396363.3.579.2.1285 1962 Unknown [id number] 2.16.840.1.330896.3.579.2.1285 1962 Unknown [id number] 2.16.840.1.401008.3.579.2.1285 1962 Unknown [id number] 2.16.840.1.678306.3.579.2.1285 1962 Unknown [id number] 2.16.840.1.177638.3.579.2.1285 1962 Unknown [id number] 2.16.840.1.020647.3.579.2.1285 1962 Unknown [id number] 2.16.840.1.546665.3.579.2.1285 1962 Unknown [id number] 2.16.840.1.961981.3.579.2.1286 1962 Unknown [id number] 2.16.840.1.859474.3.579.2.1286 1962 Unknown [id number] 2.16.840.1.173378.3.579.2.1258 1962 Unknown [id number] 2.16.840.1.153933.3.579.2.1258 1962 Unknown [id number] 2.16.840.1.372800.3.579.2.1258 1962 Unknown [id number] 2.16.840.1.543566.3.579.2.1258 1962 Unknown [id number] 2.16.840.1.916029.3.579.2.1258 1962 Unknown [id number] 2.840.1.792983.3.579.2.1258 1962 Unknown [id number] 2.16.840.1.108890.3.579.2.1258 1962 Unknown [id number] 2.16.840.1.369750.3.579.2.1258 1962 Unknown [id number] 2.16.840.1.065165.3.579.2.1258 1962 Unknown [id number] 2.16.840.1.213512.3.579.2.1258 1962 Unknown [id number] 2.16.840.1.982364.3.579.2.1258 1962 Unknown [id number] 2.16.840.1.571182.3.579.2.1258 1962 Unknown [id number] 2.16.840.1.629680.3.579.2.1258 1962 Unknown [id number] 2.16.840.1.062595.3.579.2.1258 1962 Unknown [id number] 2.16.840.1.575429.3.579.2.1259 1962 Unknown [id number] 2.16.840.1.100019.3.579.2.1258 1962 Unknown [id number] 2.16.840.1.043785.3.579.2.1258 1962 Unknown [id number] 2.16.840.1.022838.3.579.2.1258 1962 Unknown [id number] 2.16.840.1.744983.3.579.2.1258 1962 Unknown [id number] 2.16.840.1.334619.3.579.2.1258 1962 Unknown [id number] 2.16.840.1.588811.3.579.2.1258 1962 Unknown [id number] 2.16.840.1.373790.3.579.2.1258 1962 Unknown [id number] 2.16.840.1.648821.3.579.2.1258 1962 Unknown [id number] 2.16.840.1.549071.3.579.2.1258 1962 Unknown [id number] 2.16.840.1.337470.3.579.2.1258 1962 Unknown [id number] 2.16.840.1.440302.3.579.2.1258 1962 Unknown [id number] 2.16.840.1.505172.3.579.2.1258 1962 Unknown [id number] 2.16.840.1.802616.3.579.2.1258 1962 Unknown [id number] 2.16.840.1.598250.3.579.2.1259 1959 Unknown [id number] Social History Date Type Detail Facility Start: [facility]18[facility]2023 [facility] History of tobacco use Current smoker [facility] History of tobacco use Cigarette Smoker N [facility] Start: 02-18-2023 Tobacco use and exposure Smokeless t obacco non-user [facility] Start: 03-03-2023 Alcohol intake Lifetime non-d kulwinder (finding) [facility] Start: 02-18-2023 End: 03-03-2023 History of Social function [facility] Start: 02-18-2023 End: 03-03-2023 Tobacco use panel [facility] Start: 1960 Sex Assigned At Not on file N [facility] Clinical Note 08-18-2023 Note Date & [...] Pascual Castro MD on 08/18/2023 6:35 AM [facility] Evaluation note Note Date & Type Note Facility Evaluation note Diagnosis Gastroesophageal reflux disease without esophagitis- Primary Esophageal reflux Chronic constipation Unspecified constipation History of allergic reaction documented in this encounter [facility] Summary Purpose Family History No Family History Records FoundNo Family History Records FoundNo Family History Records Found Advance Directives No Advanced Directives Records FoundNo Advanced Directives Records FoundNo Advanced Directives Records Found Additional Source Comments INFORMATION SOURCE (unrecogn ized section and content) DATE CREATED AUTHOR 06/20/2022 [facility] DATE CREATED AUTHOR AUTHOR'S ORGANIZ ATION 11/06/2023 [facility] DATE CREATED AUTHOR AUTHOR'S ORGANIZ ATION 11/21/2023 [facility] EPIC Reason for Visit (unrecogniz ed section and content) Reason Comments Med Refill Care Teams (unrecognized sec tion and content) Tire Spotter Relationship Specialty Start Date End Date Terry [...] BE BASED ON THE PRIMARY CLINICAL RECORDS. [facility]. provides no warranty or guarantee of the accuracy or completeness of information in this document.
[2023-11-23 15:03] LABS: Basophils Absolute Auto 0.1 10^3/uL (0.0-0.1); Basophils Percent Auto 0.8 % (0.2-2.0); Eosinophils Absolute Auto 0.2 10^3/uL (0.0-0.7); Eosinophils Percent Auto 2.5 % (0.9-7.0); Hematocrit 40.3 % (36.0-48.0); Hemoglobin 12.9 g/dL (12.0-16.0); Immature Granulocytes Abs Auto 0.06 10^3/uL (0.00-0.03); Immature Granulocytes Pct Auto 0.9 % (0.0-0.5); Lymphocytes Absolute Auto 1.1 10^3/uL (1.2-3.8); Lymphocytes Percent Auto 17.7 % (20.5-60.0); Mean Corpuscular Hemoglobin 28.4 pg (26.7-34.0); Mean Corpuscular Volume 88.6 fL (81.0-99.0); Mean Platelet Volume 10.1 fL (9.5-13.5); Monocytes Absolute Auto 0.5 10^3/uL (0.3-0.8); Monocytes Percent Auto 7.7 % (1.7-12.0); Neutrophils Absolute Auto 4.5 10^3/uL (1.4-6.5); Neutrophils Percent Auto 70.4 % (43.0-75.0); Platelet Count 255 10^3/uL (150-450); Red Blood Count 4.55 10^6/uL (4.20-5.40); Red Cell Distribution Width 14.2 % (11.0-15.0); White Blood Count 6.4 10^3/uL (4.0-11.0)
[2023-11-23 16:01] LABS: Alanine Aminotransferase 53 U/L (14-59); Albumin Globulin Ratio 1.1; Albumin Level 3.7 g/dL (3.4-5.0); Alkaline Phosphatase 107 U/L (46-116); Anion Gap 15.7; Aspartate Amino Transferase 41 U/L (15-37); BUN Creatinine Ratio 17.9; Bilirubin Direct 0.1 mg/dL (0.0-0.2); Bilirubin Total 0.2 mg/dL (0.2-1.0); Calcium 9.5 mg/dL (8.5-10.1); Carbon Dioxide 23.3 mmol/L (21.0-32.0); Chloride 105 mmol/L (98-107); Estimated GFR (African America >60 (>=60 mL/min/1.73m^2); Estimated GFR (Non-African Ame 60 (>=60 mL/min/1.73m^2); Globulin 3.5 g/dL; Glucose 94 mg/dL (74-106); Sodium 140 mmol/L (136-145); TSH W/ REFLEX FT4 0.898 uIU/mL (0.358-3.740); Total Protein 7.2 g/dL (6.4-8.2)
== END 2023-11-23 14:32 | disposition home or self-care (01) ==
LOC: LAB 14:32
PROVIDERS: PCP Family Medicine; Visit Provider Family Medicine
DX: R42 Dizziness and giddiness (principal); Z79.899 Other long term (current) drug therapy; R53.83 Other fatigue
CPT/HCPCS: 36415; 80048; 80076; 84443; 85025

== ENCOUNTER 2024-08-22 10:50 | Outpatient (OUT) | payer BC, SELFPAY ==
--- OUTSIDE RECORDS SUMMARY | 2024-08-22 09:25 | XMS_ITS ---
Author Name Auto Generated Organization OHIP Support Name Relationship Address Phone GINNA SANZ Next of Kin Unknown + SYDNEE CAROLYN Next of Kin Unknown + LESLIE HANDY Next of Kin Unknown [phone] SVITLANA JONES Next of Kin Unknown [phone] MARTHA KOO Next of Kin Unknown [phone] ANTON ROME Next of Kin [address] [place] [address] + WILD, ANTON Next of Kin [address] [place] [address] + WILD, ANTON Next of Kin [address] [place] [address] + WILD, ANTON Next of Kin [address] [place] [address] + GINNA SANZ Next of Kin Unknown + SYDNEE CAROLYN Next of Kin Unknown + LESLIE HANDY Next of Kin Unknown [phone] SVITLANA JONES Next of Kin Unknown [phone] MARTHA KOO Next of Kin Unknown [phone] ANTON ROME Next of Kin [address] [facility] [place] [address] + WILD, ANTON Next of Kin [address] [place] [address] + Wild, Anton Next of Kin Unknown [phone] GIRTLECATRACHO, ANTON Next of Kin [address] [place] [address] + GIRTLESTONE, ANTON Next of Kin [address] [place] [address] + Girtlestone, Anton Next of Kin Unknown [phone] GIRTLESTONE, ANTON Next of Kin [address] [place] [address] + GIRTLESTONE, ANTON Next of Kin [address] [place] [address] + SANZ, GINNA Next of Kin Unknown + CAROLYN RANDHAWA Next of Kin Unknown + LESLIE HANDY Next of Kin Unknown [phone] SVITLANA JONES Next of Kin Unknown [phone] MARTHA KOO Next of Kin Unknown [phone] ANTON ROME Next of Kin [address] [place] [address] + GIRALONDRA, ANTON Next of Kin [address] [place] [address] + NOT GIVEN Next of Kin Unknown Unavailable SANZ, GINNA Next of Kin Unknown + CAROLYN RANDHAWA Next of Kin Unknown + LESLIE HANDY Next of Kin Unknown [phone] SVITLANA JONES Next of Kin Unknown [phone] MARTHA KOO Next of Kin Unknown [phone] ANTON ROME Next of Kin [address] [place] [address] + NOT GIVEN Next of Kin Unknown Unavailable GIRALONDRA, ANTON Next of Kin [address] [place] [address] + NOT GIVEN Next of Kin Unknown Unavailable WILD, ANTON Next of Kin [address] [place] [address] + SANZ, GINNA Next of Kin Unknown + RANDHAWA, CAROLYN Next of Kin Unknown + DILIA HANDYA Next of Kin Unknown [phone] KAREN, SVITLANA Next of Kin Unknown [phone] MARTHA KOO Next of Kin Unknown [phone] WILD ANTON Next of Kin [address] [place] [address] + SANZ, GINNA Next of Kin Unknown + RANDHAWA, CAROLYN Next of Kin Unknown + DILIA HANDYA Next of Kin Unknown [phone] SVITLANA JONES Next of Kin Unknown [phone] MARTHA KOO Next of Kin Unknown [phone] WILD ANTON Next of Kin [address] [place] [address] + ANTON ROME Next of Kin [address] [place] [address] + SANZ, GINNA Next of Kin Unknown + RANDHAWA, CAROLYN Next of Kin Unknown + DILIA HANDYA Next of Kin Unknown [phone] SVITLANA JONES Next of Kin Unknown +[phone] MARTHA KOO Next of Kin Unknown [phone] SANZ, GINNA Next of Kin Unknown + RANDHAWA, CAROLYN Next of Kin Unknown + DILIA HANDYA Next of Kin Unknown [phone] SVITLANA JONES Next of Kin Unknown +[phone] MARTHA KOO Next of Kin Unknown [phone] SANZ, GINNA Next of Kin Unknown + RANDHAWA, CAROLYN Next of Kin Unknown + DILIA HANDYA Next of Kin Unknown [phone] SVITLANA JONES Next of Kin Unknown +[phone] HANANE MARTHA Next of Kin Unknown [phone] SANZ, GINNA Next of Kin Unknown + RANDHAWA, CAROLYN Next of Kin Unknown + DILIA HANDYA Next of Kin Unknown [phone] JONES, SVITLANA Next of Kin Unknown +[phone] MARTHA KOO Next of Kin Unknown [phone] RANDHAWAFREDA Next of Kin [address] [address] + SANZ, GINNA Next of Kin Unknown + RANDHAWA, CAROLYN Next of Kin Unknown + LESLIE HANDY Next of Kin Unknown [phone] JONES, SVITLANA Next of Kin Unknown +[phone] MARTHA KOO Next of Kin Unknown [phone] SANZ, GINNA Next of Kin Unknown + RANDHAWA, CAROLYN Next of Kin Unknown + DILIA HANDYA Next of Kin Unknown [phone] JONES, SVITLANA Next of Kin Unknown +[phone] MARTHA KOO Next of Kin Unknown +[phone] SANZ, GINNA Next of Kin Unknown + RANDHAWA, CAROLYN Next of Kin Unknown + LESLIE HANDY Next of Kin Unknown [phone] JONES, SVITLANA Next of Kin Unknown +[phone] HANANE MARTHA Next of Kin Unknown [phone] SANZ, GINNA Next of Kin Unknown + RANDHAWA, CAROLYN Next of Kin Unknown + OLE LESLIE Next of Kin Unknown [phone] JONES, SVITLANA Next of Kin Unknown +[phone] MARTHA KOO Next of Kin Unknown [phone] RANDHAWAFREDA Next of Kin [address] [address] + SANZ, GINNA Next of Kin Unknown + RANDHAWA, CAROLYN Next of Kin Unknown + OLE LESLIE Next of Kin Unknown [phone] SVITLANA JONES Next of Kin Unknown +[phone] MARTHA KOO Next of Kin Unknown [phone] SANZ, GINNA Next of Kin Unknown + RANDHAWA, CAROLYN Next of Kin Unknown + OLE LESLIE Next of Kin Unknown [phone] JONES, SVITLANA Next of Kin Unknown +[phone] MARTHA KOO Next of Kin Unknown [phone] SANZ, GINNA Next of Kin Unknown + RANDHAWA, CAROLYN Next of Kin Unknown + OLE LESLIE Next of Kin Unknown +[phone] SVITLANA JONES Next of Kin Unknown +[phone] MARTHA KOO Next of Kin Unknown +[phone] SANZ, GINNA Next of Kin Unknown + RANDHAWA, CAROLYN Next of Kin Unknown + OLEDILIAA Next of Kin Unknown [phone] SVITLANA JONES Next of Kin Unknown +[phone] MARTHA KOO Next of Kin Unknown [phone] RANDHAWAFREDA Next of Kin [address] [address] + RANDHAWA, FREDA Next of Kin [address] [address] + SANZ, GINNA Next of Kin Unknown + RANDHAWA, CAROLYN Next of Kin Unknown + OLE LESLIE Next of Kin Unknown [phone] JONES, SVITLANA Next of Kin Unknown +[phone] MARTHA KOO Next of Kin Unknown +[phone] SANZ, GINNA Next of Kin Unknown + RANDHAWA, CAROLYN Next of Kin Unknown + MCLNTYRE, LESLIE Next of Kin Unknown +[phone] JONES, SVITLANA Next of Kin Unknown +[phone] MARTHA KOO Next of Kin Unknown +[phone] SANZ, GINNA Next of Kin Unknown + RANDHAWA, CAROLYN Next of Kin Unknown + MCLNTYRE, LESLIE Next of Kin Unknown +[phone] JONES, SVITLANA Next of Kin Unknown +[phone] MARTHA KOO Next of Kin Unknown +[phone] SANZ, GINNA Next of Kin Unknown + RANDHAWA, CAROLYN Next of Kin Unknown + MCLNTYRE, LESLIE Next of Kin Unknown +[phone] JONES, SVITLANA Next of Kin Unknown +[phone] MARTHA KOO Next of Kin Unknown +[phone] SANZ, GINNA Next of Kin Unknown + RANDHAWA, CAROLYN Next of Kin Unknown + MCLNTYRE, LESLIE Next of Kin Unknown +[phone] JONES, SVITLANA Next of Kin Unknown +[phone] MARTHA KOO Next of Kin Unknown +[phone] SANZ, GINNA Next of Kin Unknown + RANDHAWA, CAROLYN Next of Kin Unknown + MCLNTYRE, LESLIE Next of Kin Unknown +[phone] JONES, SVITLANA Next of Kin Unknown +[phone] MARTHA KOO Next of Kin Unknown +[phone] SANZ, GINNA Next of Kin Unknown + RANDHAWA, CAROLYN Next of Kin Unknown + MCLNTYRE, LESLIE Next of Kin Unknown +[phone] JONES, SVITLANA Next of Kin Unknown +[phone] KOO MARTHA Next of Kin Unknown +[phone] SANZ, GINNA Next of Kin Unknown + RANDHAWA, CAROLYN Next of Kin Unknown + DILIA HANDYA Next of Kin Unknown +[phone] JONES, SVITLANA Next of Kin Unknown +[phone] MARTHA KOO Next of Kin Unknown +[phone] RANDHAWA, FREDA Next of Kin [address] [address] + SANZ, GINNA Next of Kin Unknown + RANDHAWA, CAROLYN Next of Kin Unknown + LESLIE HANDY Next of Kin Unknown +[phone] JONES, SVITLANA Next of Kin Unknown +[phone] KOO MARTHA Next of Kin Unknown +[phone] SANZ, GINNA Next of Kin Unknown + RANDHAWA, CAROLYN Next of Kin Unknown + DILIA HANDYA Next of Kin Unknown +[phone] JONES, SVITLANA Next of Kin Unknown +[phone] MARTHA KOO Next of Kin Unknown +[phone] SANZ, GINNA Next of Kin Unknown + RANDHAWA, CAROLYN Next of Kin Unknown + DILIA HANDYA Next of Kin Unknown +[phone] JONES, SVITLANA Next of Kin Unknown +[phone] HANANE MARTHA Next of Kin Unknown +[phone] SANZ, GINNA Next of Kin Unknown + RANDHAWA, CAROLYN Next of Kin Unknown + DILIA HANDYA Next of Kin Unknown +[phone] JONES, SVITLANA Next of Kin Unknown +[phone] MARTHA KOO Next of Kin Unknown +[phone] SANZ, GINNA Next of Kin Unknown + RANDHAWA, CAORLYN Next of Kin Unknown + LESLIE HANDY Next of Kin Unknown +[phone] SVITLANA JONES Next of Kin Unknown +[phone] MARTHA KOO Next of Kin Unknown +[phone] SANZ, GINNA Next of Kin Unknown + RANDHAWA, CAROLYN Next of Kin Unknown + DILIA HANDYA Next of Kin Unknown +[phone] JONES, SVITLANA Next of Kin Unknown +[phone] MARTHA KOO Next of Kin Unknown +[phone] SANZ, GINNA Next of Kin Unknown + RANDHAWA, CAROLYN Next of Kin Unknown + LESLIE HANDY Next of Kin Unknown +[phone] SVITLANA JONES Next of Kin Unknown +[phone] MARTHA KOO Next of Kin Unknown +[phone] SANZ, GINNA Next of Kin Unknown + RANDHAWA, CAROLYN Next of Kin Unknown + LESLIE HANDY Next of Kin Unknown +[phone] SVITLANA JONES Next of Kin Unknown +[phone] HANANE MARTHA Next of Kin Unknown +[phone] SANZ, GINNA Next of Kin Unknown + RANDHAWA, CAROLYN Next of Kin Unknown + DILIA HANDYA Next of Kin Unknown +[phone] SVITLANA JONES Next of Kin Unknown +[phone] HANANE MARTHA Next of Kin Unknown +[phone] RANDHAWAFREDA Rubin Next of Kin [address] [place] [address] + Care Team Providers Care Medical Detail Representative Name Role Phone LORRIEHERENCE Attending Unavailable LORRIE, JUAN MIGUEL Attending Unavailable HENRIETTA HAMILTON Attending Unavailable LORRIE, JUAN MIGUEL Attending Unavailable LORRIE, JUAN MIGUEL Attending Unavailable LORRIE, JUAN MIGUEL Attending Unavailable LORRIE, JUAN MIGUEL Attending Unavailable ALFONSOHENRIETTA TEMLPETON Attending Unavailable LORRIE, JUAN MIGUEL Attending Unavailable LORRIE, JUAN MIGUEL Attending Unavailable LARON SAHU Referring Unavailable ALFONSOHENRIETTA Attending Unavailable LORRIE, JUAN MIGUEL Attending Unavailable LORRIE, JUAN MIGUEL Attending Unavailable LORRIE, JUAN MIGUEL Attending Unavailable ALFONSOHENRIETTA TEMPLETON Attending Unavailable LORRIE, JUAN MIGUEL Attending Unavailable LORRIE, JUAN MIGUEL Attending Unavailable ALFONSO, HENRIETTA Guevara Attending Unavailable LORRIE, JUAN MIGUEL Attending Unavailable LORRIE, JUAN MIGUEL Attending Unavailable LORRIE, JUAN MIGUEL Attending Unavailable LORRIE, JUAN MIGUEL Attending Unavailable ALFONSO, HENRIETTA Guevara Attending Unavailable HENRIETTA HAMILTON Referring Unavailable Susan, Luciano S Attending Unavailable NadererTerry Primary Care Unavailable Susan, Luciano S Admitting Unavailable Susan, Luciano S Attending Unavailable CeciliorTerry Primary Care Unavailable Susan, Luciano S Admitting Unavailable JR. YUE, SONJA Ivory Attending Unavaila ble JR. YUE, SONJA Ivory Attending Unavaila PATY Parsons Attending Unavailable PATY GUADARRAMA Referring Unavailable YON VELAZQUEZ Attending Unavailable JR. YUE, SONJA Ivory Referring Unavaila ble YON VELAZQUEZ Attending Unavailable JR. YUE, SONJA Ivory Referring Unavaila ble TERRY MCLAUGHLIN Attending Unavailable YON VELAZQUEZ Attending Unavailable YON VELAZQUEZ Attending Unavailable JR. YUE, SONJA Ivory Referring Unavaila ble KENY DUNCAN Attending Unavailable YON VELAZQUEZ Attending Unavailable JR. YUE, SONJA Ivory Referring Unavaila YON Bella Attending Unavailable JR. YUE, SONJA Ivory Referring Unavaila ble UNA MAYNARD Attending Unavailable JR. YUE, SONJA Ivory Referring Unavaila ble UNA MAYNARD Attending Unavailable JR. YUE, SONJA Ivory Referring Unavaila ble UNA MAYNARD Attending Unavailable JR. YUE, SONJA Ivory Referring Unavaila ble ANJELICA SCHMIDT Attending Unavailable JR. YUE, SONJA Ivory Referring Unavaila ble KENY DUNCAN Attending Unavailable KENY DUNCAN Referring Unavailable ANJELICA SCHMIDT Attending Unavailable JR. YUE, SONJA Ivory Referring Unavaila ble KENY DUNCAN Attending Unavailable UNA MAYNARD Attending Unavailable JR. YUE, SONJA Ivory Referring Unavaila ble UNA MAYNARD Attending Unavailable STEPANIC, JR., SONJA Ivory Referring Unavaila ble STEPANIC, JR., SONJA Ivory Attending Unavaila ble NADERERTERRY Attending Unavailable STEPANIC, JR., SONJA Ivory Attending Unavaila ble BRINK, UNA Attending Unavailable STEPANIC, JR., SONJA Ivory Referring Unavaila ble BRINK, UNA Attending Unavailable STEPANIC, JR., SONJA Ivory Referring Unavaila ble BLACKSTON, TABATHA Napoles Attending Unavailable STEPANIC, JR., SONJA Ivory Referring Unavaila ble BRINK, UNA Attending Unavailable STEPANIC, JR., SONJA Ivory Referring Unavaila ble BRINK, UNA Attending Unavailable STEPANIC, JR., SONJA Ivory Referring Unavaila ble BLACKSTON, TABATHA Napoles Attending Unavailable STEPANIC, JR., SONJA Ivory Referring Unavaila ble STEPANIC, JR., SONJA Ivory Attending Unavaila ble STEPANIC, JR., SONJA Ivory Referring Unavaila ble STEPANIC, JR., SONJA Ivory Attending Unavaila ble STEPANIC, JR., SONJA Ivory Attending Unavaila ble NADERER, TERRY Attending Unavailable PROBLEMS DATE TYPE CONDITION / CODE ATTENDING STATUS [facility] 11/26/2022 Unknown Panic disorder (episodic paroxysmal anxiety) / F41.0(ICD-10) HENRIETTA HAMILTON [facility] 05/11/2024 Unknown Other chronic pa in / G89.29(ICD-10) Luciano Davis [facility] 02/19/2024 Unknown Presence of righ t artificial knee joint / Z96.651(ICD-10) [facility] 02/19/2024 Unknown Pain in right kn ee / M25.561(ICD-10) [facility] 11/26/2022 Unknown Generalized anxi ety disorder / F41.1(ICD-10) HENRIETTA HAMILTON [facility] 11/26/2022 Unknown Major depressive disorder, recurrent severe without psychotic features / F33.2(ICD-10) HENRIETTA HAMILTON [facility] PROCEDURES No Procedure Records Found RESULTS CT KNEE RT WO CONT Observed: 02/19/2024 1:06 PM Status: COMPLETED Source: [facility] CT KNEE RT WO CONT Noncontrast CT right knee on 02/19/2024 HISTORY: Right knee arthroplasty, pain COMPARISON: None TECHNIQUE: Multiple contiguous 2.5 mm axial images of the right knee were obtained. Coronal and sagittal 2-D reconstructions were performed. Automated exposure control was utilized. FINDINGS: The prosthetic components appear to be intact with normal alignment. Osseous structures are intact. No bony destructive process or periprosthetic lucency. There is a small suprapatellar joint effusion without lipohemarthrosis. No soft tissue fluid collection or hematoma. IMPRESSION: No acute hardware complication or pathologic process. All CT scans at this facility use dose modulation, iterative reconstruction, and/or weight based dosing when appropriate to reduce radiation dose to as low as reasonably achievable. Finalized by Justice Sylvester MD on 02/22/2024 12:46 PM ALLERGIES DATE TYPE / CODE NAME / CODE REACTION SEVERITY SOURCE 05/23/2024 Drug Allergy/4160 30036(SNOMED CT) Sulfa (Sulfonamide Antibiotics)/N31507 0491(RXNORM) Rash Moderate (Severity Modifier) (Qualifier Value) [facility] 05/23/2024 Drug Allergy/4160 00167(SNOMED CT) erythromycin base/P390226057(RXN ORM) Rash Moderate (Severity Modifier) (Qualifier Value) [facility] 05/23/2024 Drug Allergy/4160 66807(SNOMED CT) sulfamethoxazole/F0 58518584(RXNORM) Rash Moderate (Severity Modifier) (Qualifier Value) [facility] 05/23/2024 Drug Allergy/4160 66637(SNOMED CT) trimethoprim/S18721 2873(RXNORM) Rash Moderate (Severity Modifier) (Qualifier Value) [facility] 05/23/2024 Drug Allergy/4160 20504(SNOMED CT) venom-honey bee/Z982585052(RXNO RM) Anaphylaxis Severe (Severity Modifier) (Qualifier Value) [facility] 06/18/2022 DRUG~NON-CBO RD/712525161 (SNOMED CT) ERYTHROMYCIN [facility] 06/18/2022 Drug Class~NON-CB ORD/01928091 3(SNOMED CT) SULFA (SULFONAMIDE ANTIBIOTICS) [facility] ENCOUNTERS ADMIT/DISCHARGE ACCOUNT NUMBER ADMITTING ENCOUNTER CLASS LOCATION SOURCE 08/22/2024/08/23/19 [id number] Ambulatory Building:[facility] 08/17/2024/08/18/19 25 [id number] Ambulatory Building:[facility] 08/10/2024/08/11/19 [id number] Ambulatory Building:[facility] 07/20/2024/07/21/19 [id number] Ambulatory Building:[facility] 07/01/2024/07/02/19 25 [id number] Ambulatory Building:[facility] 06/29/2024/06/30/19 25 [id number] Ambulatory Building:[facility] 06/23/2024/06/24/19 [id number] Ambulatory Building:[facility] 06/22/2024/06/23/19 25 [id number] Ambulatory Building:[facility] 06/01/2024/06/02/19 25 [id number] Luciano Davis [facility] ng:[facility] 05/30/2024/05/31/19 25 [id number] Ambulatory Building:[facility] 05/17/2024/05/18/19 25 [id number] Ambulatory Building:[facility] 05/11/2024/05/12/19 25 [id number] Luciano Davis [facility] ng:[facility] 04/22/2024/04/23/19 25 [id number] Ambulatory Building:[facility] 04/19/2024/04/20/19 25 [id number] Ambulatory Building:[facility] 04/06/2024/04/06/19 [id number] Ambulatory Building:[facility] 03/28/2024/03/28/19 [id number] Ambulatory Building:[facility] 03/07/2024/03/07/19 [id number] Ambulatory Building:[facility] 02/24/2024/02/23/19 [id number] Ambulatory Building:[facility] 02/24/2024/02/23/19 [id number] Ambulatory Building:[facility] 02/19/2024/02/18/19 25 [id number] Ambulatory Building:[facility] 02/18/2024/02/17/19 25 [id number] Ambulatory Building:[facility] 02/02/2024/02/02/20 24 [id number] Ambulatory Building:[facility] 01/25/2024/01/25/20 24 [id number] Ambulatory Building:[facility] 01/06/2024/01/06/20 24 [id number] Ambulatory Building:[facility] 12/29/2023/12/29/19 24 [id number] Ambulatory Building:[facility] 12/24/2023/12/24/19 24 [id number] Ambulatory Building:[facility] 12/21/2023/12/21/19 24 [id number] Ambulatory Building:[facility] 12/21/2023/12/21/19 24 [id number] Ambulatory Building:[facility] 12/16/2023/12/16/19 24 [id number] Ambulatory Building:[facility] 12/14/2023/12/14/19 24 [id number] Ambulatory Building:[facility] 12/08/2023/12/08/19 24 [id number] Ambulatory Building:[facility] 12/07/2023/12/07/19 24 [id number] Ambulatory Building:[facility] 12/03/2023/12/03/19 24 [id number] [facility] 11/30/2023/11/30/19 24 [id number] [facility] 11/25/2023/11/25/19 24 [id number] [facility] 11/24/2023/11/24/19 24 [id number] Ambulatory Building:[facility] 11/23/2023/11/23/19 24 [id number] Ambulatory Building:[facility] 11/19/2023/11/19/19 24 [id number] Ambulatory Building:[facility] 11/09/2023/11/09/19 24 [id number] Ambulatory Building:[facility] 11/06/2023/11/06/19 24 [id number] [facility] 11/04/2023/11/04/19 24 [id number] Ambulatory Building:[facility] 11/04/2023/11/04/19 24 [id number] Ambulatory Building:[facility] 10/29/2023/10/29/19 24 [id number] [facility] 10/28/2023/10/28/19 24 [id number] Ambulatory Building:[facility] 10/21/2023/10/21/19 24 [id number] [facility] 10/14/2023/10/14/19 24 [id number] Ambulatory Building:[facility] 10/14/2023/10/14/19 24 [id number] Ambulatory Building:[facility] 10/14/2023/10/14/19 24 [id number] [facility] 10/09/2023/10/09/19 24 [id number] [facility] 09/30/2023/09/30/19 24 [id number] Ambulatory Building:[facility] 09/29/2023/09/29/19 24 [id number] Ambulatory Building:[facility] 09/25/2023/09/25/19 24 [id number] Ambulatory Building:[facility] 09/24/2023/09/24/19 24 [id number] Ambulatory Building:[facility] S SWS PTH [facility] 09/23/2023/09/23/19 24 [id number] Ambulatory Building:[facility] 09/22/2023/09/22/19 24 [id number] Ambulatory Building:FBO RTHO [facility] 09/17/2023/09/17/19 24 [id number] Ambulatory Building:[facility] 09/15/2023/09/15/19 24 [id number] Ambulatory Building:[facility] 09/14/2023/09/14/19 24 [id number] Ambulatory Building:[facility] 09/10/2023/09/10/19 24 [id number] Ambulatory Building:[facility] 09/01/2023/09/01/19 24 [id number] Ambulatory Building:N[facility] S SWS OB [facility] 08/25/2023/08/25/19 24 [id number] Ambulatory Building:[facility] PAYERS ENCOUNTER GUARANTOR PAYER SUBSCRIBER SOURCE 08/22/2024 PHUONG VERGARAOB: [address] [address]Kyq: () (WP) Primary Insurance:RECOMBINETICSBSPolic y Number: [id number] ve Date:2021-07-17 PHUONG JUNEYDOB: [id number] [place] [id number] [facility] EP[facility] 08/17/2024 PHUONG JUNEYDOB: [address] [address]Epm: (HP) Primary Insurance:BCBS OUT OF STATE PPO/TRUSTPolicy Number: [id number] ve Date:2021-07-17 PHUONG Hines FRYDOB: [id number], [place] [address]Cdk: (HP) [facility] 08/10/2024 PHUONG Hines FRYDOB: [address], [place] [address]Jnn: (HP) Primary Insurance:BCBS OUT OF STATE PPO/TRUSTPolicy Number: [id number] ve Date:2021-07-17 PHUONG Hines FRYDOB: [id number], [place] [address]Ncu: (HP) [facility] 07/20/2024 PHUONG Hines FRYDOB: [address], [place] [address]Gor: (HP) Primary Insurance:BCBS OUT OF STATE PPO/TRUSTPolicy Number: [id number] ve Date:2021-07-17 PHUONG Hines FRYDOB: [id number], [place] [address]Aqb: (HP) [facility] 07/01/2024 PHUONG Hines FRYDOB: [facility] [address], [place] [address]Tld: (HP) Primary Insurance:BCBS OUT OF STATE PPO/TRUSTPolicy Number: [id number] ve Date:2021-07-17 PHUONG Hines FRYDOB: [id number] [facility] [address], [place] [address]Jhm: (HP) [facility] 06/29/2024 PHUONG Hines FRYDOB: [address] [address]Ddo: (HP) (WP) Primary Insurance:BCBSPolic y Number: [id number] ve Date:2021-07-17 PHUONG Hines FRYDOB: [id number] [facility] [address] [address] [address] [facility] 06/23/2024 PHUONG Hines FRYDOB: [facility] [address] [address], [place] [address]Mlg: (HP) Primary Insurance:BCBS OUT OF STATE PPO/TRUSTPolicy Number: [id number] ve Date:2021-07-17 PHUONG Hines FRYDOB: [id number] [facility] [address] [address], [place] [address]Tmu: (HP) [facility] 06/22/2024 PHUONG A FRYDOB: [facility] [address] [address], [place] [address]Zkn: (HP) Primary Insurance:BC OUT OF STATE PPO/TRUSTPolicy Number: [id number] ve Date:2021-07-17 PHUONG Hines FRYDOB: [id number] [facility] [address] [address], [place] [address]Qfg: (HP) [facility] 06/01/2024 Phuong A Pro[address], [place] [address]Jju: (HP) Primary Insurance:Self Pay Cosmetic/Pain MgmtPolicy Number: [id number] Date:0389-30-96JWFL [address] [place], [place] [address]DP: Phuong A FryDOB: [id number] [address] [address]Kco: (HP) [facility] 06/01/2024 Secondary Insurance:Self PayPolicy Number: Effective Date:2024-05-23 [facility]30[facility] PHUONG Hines FRYDOB: [facility] [address], [place] [address]Lmx: (HP) Primary Insurance:BCBS OUT OF STATE PPO/TRUSTPolicy Number: [id number] ve Date:2021-07-17 PHUONG Hines FRYDOB: [id number] [facility] [address] [address], [place] [address]Jsq: (HP) [facility] 05/17/2024 PHUONG Hines FRYDOB: [facility] [address], [place] [address]Ncg: (HP) Primary Insurance:BCBS OUT OF STATE PPO/TRUSTPolicy Number: [id number] ve Date:2021-07-17 PHUONG Hines FRYDOB: [id number] [facility] [address] [address], [place] [address]Rzk: (HP) [facility] 05/11/2024 Phuong Hines [address] [place] [address] Road [address], [place] [address]Dcm: (HP) Primary Insurance:Self Pay Cosmetic/Pain MgmtPolicy Number: [id number] Date:1815-73-11OANR [address] [place], [place] [address]AF: Phuong Hines FryDOB: [id number] [address] [address]Ilh: (HP) [facility] 05/11/2024 Secondary Insurance:Self PayPolicy Number: Effective Date:2024-05-05 [facility] 04/22/2024 PHUONG Hines FRYDOB: [facility] [address] [address], [place] [address]Nxd: (HP) Primary Insurance:BCBS OUT OF STATE PPO/TRUSTPolicy Number: [id number] ve Date:2021-07-17 PHUONG Hines FRYDOB: [id number] [facility] [address], [place] [address]Qzd: (HP) [facility] 04/19/2024 PHUONG Hines FRYDOB: [facility] [address], [place] [address]Sph: (HP) Primary Insurance:BCBS OUT OF STATE PPO/TRUSTPolicy Number: [id number] ve Date:2021-07-17 PHUONG Hines FRYDOB: [id number] [facility] [address], [place] [address]Ijq: (HP) [facility] 04/06/2024 PHUONG Hines FRYDOB: [facility] [address] [address] [address] [address]Wfk: (HP) (WP) Primary Insurance:BCBSPolic y Number: [id number] ve Date:2021-07-17 PHUONG Hines FRYDOB: [id number] [facility] [address] [address] [place] [address], [place] [address] [facility] 03/28/2024 PHUONG Hines FRYDOB: [facility] [address], [place] [address]Rlc: (HP) Primary Insurance:BCBS OUT OF STATE PPO/TRUSTPolicy Number: [id number] ve Date:2021-07-17 PHUONG Hines FRYDOB: [id number] [facility] [address], [place] [address]Wjn: (HP) [facility] 03/07/2024 PHUONG Hines FRYDOB: [facility] [address], [place] [address]Evu: (HP) Primary Insurance:BCBS OUT OF STATE PPO/TRUSTPolicy Number: [id number] ve Date:2021-07-17 PHUONG Hines FRYDOB: [id number] [facility] [address], [place] [address]Mms: (HP) [facility] 02/24/2024 PHUONG Hines FRYDOB: [facility] [address] [address] [address]Xsa: (HP) (WP) Primary Insurance:BCBSPolic y Number: [id number] ve Date:2021-07-17 PHUONG Hines FRYDOB: [id number] [facility] [address] [place] [address], [place] [address] [place] [address] [facility] 02/24/2024 PHUONG Hines FRYDOB: [facility] [address], [place] [address]Atn: (HP) Primary Insurance:BCBS OUT OF STATE PPO/TRUSTPolicy Number: [id number] ve Date:2021-07-17 PHUONG Hines FRYDOB: [id number] [facility] [address], [place] [address]Usj: (HP) [facility] 02/19/2024 PHUONG Hines FRYDOB: [facility] [address], [place] [address]Scu: (HP) Primary Insurance:BCBS OUT OF STATE PPO/TRUSTPolicy Number: [id number] ve Date:2021-07-17 PHUONG Hines FRYDOB: [id number] [facility] [address], [place] [address]Apt: (HP) [facility] 02/18/2024 PHUONG Hines FRYDOB: [facility] [address] [place] [address]Anh: (HP) Primary Insurance:BCBS OUT OF STATE PPO/TRUSTPolicy Number: [id number] ve Date:2021-07-17 PHUONG Hines FRYDOB: [id number] [facility] [address], [place] [address]Aee: (HP) [facility] 02/02/2024 PHUONG Hines FRYDOB: [address] [place] [address]Kot: (HP) (WP) Primary Insurance:BCBSPolic y Number: [id number] ve Date:2021-07-17 PHUONG Hines FRYDOB: [id number] [address] [place] [address] [place] [address] [facility] 01/25/2024 PHUONG Hines FRYDOB: [address], [place] [address]Src: (HP) Primary Insurance:BCBS OUT OF STATE PPO/TRUSTPolicy Number: [id number] ve Date:2021-07-17 PHUONG Hines FRYDOB: [id number] [facility] [address], [place] [address]Dxm: (HP) [facility] 01/06/2024 PHUONG Hines FRYDOB: [address] [place] [address]Srp: (HP) (WP) Primary Insurance:BCBSPolic y Number: [id number] ve Date:2021-07-17 PHUONG Hines FRYDOB: [id number] [facility] [address] [address] [address] [facility] 12/29/2023 PHUONG Hines FRYDOB: [facility] [address] [address], [place] [address]Isl: (HP) Primary Insurance:BCBS OUT OF STATE PPO/TRUSTPolicy Number: [id number] ve Date:2021-07-17 PHUONG Hines FRYDOB: [id number] [facility] [address], [place] [address]Dpe: (HP) [facility] 12/24/2023 PHUONG Hines FRYDOB: [facility] [address], [place] [address]Xnu: (HP) Primary Insurance:BCBS OUT OF STATE PPO/TRUSTPolicy Number: [id number] ve Date:2021-07-17 PHUONG Hines FRYDOB: 9163-86-60NSH256 [facility] [address], [place] [address]Yfp: (HP) [facility] 12/21/2023 PHUNOG Hines FRYDOB: [facility] [address] [address] [address]Bdk: (HP) (WP) Primary Insurance:BCBSPolic y Number: [id number] ve Date:2021-07-17 PHUONG Hines FRYDOB: [id number] [facility] [address] [address] [address] [facility] 12/21/2023 PHUONG Hines FRYDOB: [facility] [address] [address] [address]Dys: (HP) (WP) Primary Insurance:BCBSPolic y Number: [id number] ve Date:2021-07-17 PHUONG Hines FRYDOB: [id number] [facility] [address] [place] [address] [facility] 12/16/2023 PHUONG Hines FRYDOB: [facility] [address] [address] [address]Hre: (HP) (WP) Primary Insurance:BCBSPolic y Number: [id number] ve Date:2021-07-17 PHUONG Hines FRYDOB: [id number] [facility] [address] [place] [address] [facility] 12/14/2023 PHUONG Hines FRYDOB: [facility] [address] [place] [address]Xms: (HP) (WP) Primary Insurance:BCBSPolic y Number: [id number] ve Date:2021-07-17 PHUONG Hines FRYDOB: [id number] [facility] [address] [place] [address] [facility] 12/08/2023 PHUONG Hines FRYDOB: [facility] [address], [place] [address]Tcb: (HP) Primary Insurance:BCBS OUT OF STATE PPO/TRUSTPolicy Number: [id number] ve Date:2021-07-17 PHUONG Hines FRYDOB: [id number] [facility] [address], [place] [address]Msx: (HP) [facility] 12/07/2023 PHUONG Hines FRYDOB: [facility] [address] [address] [address]Xwm: (HP) (WP) Primary Insurance:BCBSPolic y Number: [id number] ve Date:2021-07-17 PHUONG Hines FRYDOB: [id number] [facility] [address] [address] [address] [facility] 12/03/2023 PHUONG Hines FRYDOB: [facility] [address] [address] [address]Qzs: (HP) (WP) Primary Insurance:BCBSPolic y Number: [id number] ve Date:2021-07-17 PHUONG Hines FRYDOB: [id number] [facility] [address] [address] [address] [facility] 11/30/2023 PHUONG Hines FRYDOB: [facility] [address] [address] [address]Vwr: (HP) (WP) Primary Insurance:BCBSPolic y Number: [id number] ve Date:2021-07-17 PHUONG Hines FRYDOB: [id number] [facility] [address] [place] [address] [facility] 11/25/2023 PHUONG Hines FRYDOB: [facility] [address] [address] [address]Qfo: (HP) (WP) Primary Insurance:BCBSPolic y Number: [id number] ve Date:2021-07-17 PHUONG Hines FRYDOB: [id number] [facility] [address] [address] [address] [facility] 11/24/2023 PHUONG Hines FRYDOB: [address] [facility] [address], [place] [address]Ksq: (HP) Primary Insurance:BCBS OUT OF STATE PPO/TRUSTPolicy Number: [id number] ve Date:2021-07-17 PHUONG Hines FRYDOB: [id number] [address], [place] [address]Lvr: (HP) [facility] 11/23/2023 PHUONG Hines FRYDOB: [address] [address]Uwp: (HP) (WP) Primary Insurance:BCBSPolic y Number: [id number] ve Date:2021-07-17 PHUONG Hines FRYDOB: [id number] [facility] [address] [address] [address] [facility] 11/19/2023 PHUONG Hines FRYDOB: [facility] [address] [address] [address]Bjt: (HP) (WP) Primary Insurance:BCBSPolic y Number: [id number] ve Date:2021-07-17 PHUONG Hines FRYDOB: [id number] [facility] [address] [address] [address] [facility] 11/09/2023 PHUONG Hines FRYDOB: [facility] [address] [address] [address]Iuz: (HP) (WP) Primary Insurance:BCBSPolic y Number: [id number] ve Date:2021-07-17 PHUONG Hines FRYDOB: [id number] [facility] [address] [address] [address] [facility] 11/06/2023 PHUONG Hines FRYDOB: [facility] [address] [address] [address]Ixb: (HP) (WP) Primary Insurance:BCBSPolic y Number: [id number] ve Date:2021-07-17 PHUONG Hines FRYDOB: [id number] [facility] [address] [address] [facility] 11/04/2023 PHUONG Hines FRYDOB: [facility] [address], [place] [address]Aja: (HP) Primary Insurance:BCBS OUT OF STATE PPO/TRUSTPolicy Number: [id number] ve Date:2021-07-17 PHUONG Hines FRYDOB: [id number] [facility] [address], [place] [address]Tbh: (HP) [facility] 11/04/2023 PHUONG Hines FRYDOB: [facility] [address], [place] [address]Ini: (HP) Primary Insurance:BCBS OUT OF STATE PPO/TRUSTPolicy Number: [id number] ve Date:2021-07-17 PHUONG Hines FRYDOB: [id number] [facility] [address], [place] [address]Ooz: (HP) [facility] 10/29/2023 PHUONG Hines FRYDOB: [facility] [address] [address]Yzz: (HP) (WP) Primary Insurance:BCBSPolic y Number: [id number] ve Date:2021-07-17 PHUONG Hines FRYDOB: [id number] [facility] [address] [address] [facility] 10/28/2023 PHUONG Hines FRYDOB: [facility] [address] [address]Hjl: (HP) (WP) Primary Insurance:BCBSPolic y Number: [id number] ve Date:2021-07-17 PHUONG Hines FRYDOB: [id number] [address] [place] [address] [facility] 10/21/2023 PHUONG Hines FRYDOB: [address] [place] [address]Itl: (HP) (WP) Primary Insurance:BCBSPolic y Number: [id number] ve Date:2021-07-17 PHUONG Hines FRYDOB: [id number] [address] [place] [address] [place] [address] [facility] 10/14/2023 PHUONG Hines FRYDOB: [address] [address]Krb: (HP) (WP) Primary Insurance:BCBSPolic y Number: [id number] ve Date:2021-07-17 PHUONG Hines FRYDOB: [id number] [address] [place] [address] [facility] 10/14/2023 PHUONG Hines FRYDOB: [address] [place] [address]Nmv: (HP) (WP) Primary Insurance:BCBSPolic y Number: [id number] ve Date:2021-07-17 PHUONG JUNEYDOB: 1167-15-20CUU280 [address] [place] [address] [facility] 10/14/2023 PHUONG Hines FRYDOB: [address] [place] [address]Wnw: (HP) (WP) Primary Insurance:BCBSPolic y Number: [id number] ve Date:2021-07-17 PHUONG Hines FRYDOB: [id number] [address] [place] [address] [facility] 10/09/2023 PHUONG Hines FRYDOB: [facility] [address] [place] [address], [place] [address]Wvz: (HP) (WP) Primary Insurance:BCBSPolic y Number: [id number] ve Date:2021-07-17 PHUONG Hines FRYDOB: [id number] [address] [place] [address] [facility] 09/30/2023 PHUONG Hines FRYDOB: [address] [place] [address]Oim: (HP) (WP) Primary Insurance:BCBSPolic y Number: [id number] ve Date:2021-07-17 PHUONG Hines FRYDOB: [id number] [address] [place] [address] [facility] 09/29/2023 PHUONG Hines FRYDOB: [facility] [address], [place] [address]Bhp: (HP) Primary Insurance:BCBS OUT OF STATE PPO/TRUSTPolicy Number: [id number] ve Date:2021-07-17 PHUONG Hines FRYDOB: [id number] [facility] [address], [place] [address]Ycp: (HP) [facility] 09/25/2023 PHUONG Hines FRYDOB: [facility] [address] [address] [address]Ljr: (HP) (WP) Primary Insurance:BCBSPolic y Number: [id number] ve Date:2021-07-17 PHUONG Hines FRYDOB: [id number] [address] [place] [address] [facility] 09/24/2023 PHUONG Hines FRYDOB: [address] [place] [address]Lqg: (HP) (WP) Primary Insurance:BCBSPolic y Number: [id number] ve Date:2021-07-17 PHUONG Hines FRYDOB: [id number] [address] [place] [address] [facility] 09/23/2023 PHUONG Hines FRYDOB: [address] [address]Bjg: (HP) (WP) Primary Insurance:BCBSPolic y Number: [id number] ve Date:2021-07-17 PHUONG Hines FRYDOB: [id number] [address] [address] [facility] 09/22/2023 PHUONG Hines FRYDOB: [address] [address]Jzz: (HP) (WP) Primary Insurance:BCBSPolic y Number: [id number] ve Date:2021-07-17 PHUONG Hines FRYDOB: [id number] [address] [place] [address] [facility] 09/17/2023 PHUONG Hines FRYDOB: [address] [place] [address]Axc: (HP) (WP) Primary Insurance:BCBSPolic y Number: [id number] ve Date:2021-07-17 PHUONG Hines FRYDOB: [id number] [address] [place] [address] [facility] 09/15/2023 PHUONG Hines FRYDOB: [address] [place] [address]Xeh: (HP) (WP) Primary Insurance:BCBSPolic y Number: [id number] ve Date:2021-07-17 PHUONG Hines FRYDOB: [id number] [address] [place] [address] [facility] 09/14/2023 PHUONG Hines FRYDOB: [address] [place] [address]Mag: (HP) (WP) Primary Insurance:BCBSPolic y Number: [id number] ve Date:2021-07-17 PHUONG Hines FRYDOB: [id number] [address] [place] [address] [facility] 09/10/2023 PHUONG Hines FRYDOB: [address] [place] [address]Eoy: (HP) (WP) Primary Insurance:BCBSPolic y Number: [id number] ve Date:2021-07-17 PHUONG Hines FRYDOB: [id number] [address] [place] [address] [facility] 09/01/2023 PHUONG Hines FRYDOB: [address] [place] [address]Juz: (HP) (WP) Primary Insurance:BCBSPolic y Number: [id number] ve Date:2021-07-17 PHUONG [facility]ny [facility] [id number] [address] [facility] 08/25/2023 PHUONG JUNEYDOB: [place] [address] [place] [address]Lnr: (HP) Primary Insurance:BLUE ACCESS (PPO)Policy Number: [id number] ve Date:2021-07-17 PHUONG Hines DIOB: [id number] [place] [address] [place] [address]Itw: (HP) [facility]
--- OUTSIDE RECORDS SUMMARY | 2024-08-22 09:30 | XMS_ITS | Encounter Summary ---
Author Organization [facility] Address [address] [facility] [place] [address] Care Team Providers Care Hammerer Tab Name Role Phone Terry Acevedo MD Primary Care Provider [phone] Reason for Visit * Reason Comments Follow-up 6m Ankle Pain Right ankle Encounter Details Date Type Department Care Team (Late st Contact Info) Description 08/22/2024 9:30 AM EDT Office Visit [facility] [address] [place] [phone] Terry Acevedo MD [address] [place] [address] Lumbar spondylosis (Primary Dx); Primary osteoarthritis of right knee; Acute right ankle pain; Primary insomnia; Seasonal allergic rhinitis due to pollen; Class 2 severe obesity due to excess calories with serious comorbidity and body mass index (BMI) of 37.0 to 37.9 in adult ([facility]) Social History Tobacco Use Types Packs/Day Years Used Date Smoking Tobacco: Former Cigarettes Smokeless Tobacco: Never Alcohol Use Standard Drinks/Week Comments Never 0 (1 standard drink = 0.6 oz pur e alcohol) AUDIT-C Answer Date Recorded Q1: How often do you have a drink containing alcohol? Never 09/01/2023 Q2: How many drinks containi ng alcohol do you have on a typical day when you are drinking? Patient does not drink Q3: How often do you have si x or more drinks on one occasion? Never 09/01/2023 PHQ-2 Answer Date Recorded Patient Health Questionnaire-2 Score 2 09/01/2023 Comments No Sex and Gender Information Value Date Recorded Sex Assigned at Not on file Legal Sex Female 8:25 PM EDT Gender Identity Not on file Sexual Orientation Not on file documented as of this encounter Last Filed Vital Signs Vital Sign Reading Time Taken Comments Blood Pressure 134/62 08/22/2024 9:46 AM EDT Pulse 107 08/22/2024 9:46 AM EDT Temperature 36.6 C (97.8 F) 08/22/2024 9:46 AM EDT Respiratory Rate 20 08/22/2024 9:46 AM EDT Oxygen Saturation 95% 08/22/2024 9:46 AM EDT Inhaled Oxygen Concentration - - Weight 101 kg (223 lb) 08/22/2024 9:46 AM EDT Height 165.1 cm (5' 5 ) 08/22/2024 9:46 AM EDT Body Mass Index 37.11 08/22/2024 9:46 AM EDT documented in this encounter Progress Notes * Terry Acevedo MD - 08/22/2024 10:35 AM EDTAssociated Problem(s): Seasonal allergic rhinitis due to pollen Symptoms controlled with medication and continue. * Terry Acevedo MD - 08/22/2024 10:35 AM EDTAssociated Problem(s): Primary osteoarthritis of right knee Continued pain and problems standing. Follow with ortho. * Terry Acevedo MD - 08/22/2024 10:35 AM EDTAssociated Problem(s): Primary insomnia Sleeping well with medication and continue. * Terry Acevedo MD - 08/22/2024 10:35 AM EDTAssociated Problem(s): Lumbar spondylosis Pain worse and use norco PRN. * Terry Acevedo MD - 08/22/2024 10:34 AM EDTAssociated Problem(s): Class 2 severe obesity due to excess calories with serious comorbidity and body mass index (BMI) of 37.0 to 37.9 in adult ([facility]) Patient overweight and difficult time losing weight. Discussed proper diet and regular aerobic exercise. Recommend Weight Watchers and need to limit calories and smaller portions. Need to increase activity and regular aerobic exercise several days a week for 30 minutes at a time. Interested in adipex and warned of potential cardiac side effects. Script written for first month and will need to recheck weight in 1 month. OARRS reviewed. Continue medications as prescribed. * Terry Acevedo MD - 08/22/2024 10:34 AM EDTAssociated Problem(s): Acute right ankle pain Unclear cause of pain but potentially related to arthritis. Check x-ray and uric acid. Treat with prednisone. * Terry Acevedo MD - 08/22/2024 9:30 AM EDT Images from the original note were not included. Subjective Patient ID: Phuong Cruz is a 63 y.o. female who presents for Follow-up (6m) and Ankle Pain (Right ankle). Follow up knee pain, back pain, insomnia, allergies, and weight. C/o right ankle pain for about a week. No fall, injury, or trauma. Noticed when driving then ankle swollen. Pain to walk or stand and wearing a brace. Pain on inside of ankle. Not red or hot to touch. Continued pain in right knee after replacement. Pain with walking and standing. Seen by ortho and pain management. Continues to have pain in low back and across top hips. No radiation into gluteal region or down legs. Pain increased with walking, bending, and lifting. At times severe and uses norco PRN which helps. Tries to increase activity and walk regularly. Sleeping well with ambien. Able to fall asleep and stay asleep. Wakesup rested in am. Allergies controlled with medication. No congestion or rhinorrhea. No TEIXEIRA or sinus pressure. Ears not plugged or popping. Weight up 5 pounds since last visit. Not active and not walking much or exercising. Tries to watch diet and eat healthy. Increased fruits and vegetables. Smallerportions and limits snacking. Tries to limit total daily calories. Request adipex. Ankle Pain Review of Systems Respiratory: Negative for cough, shortness of breath and wheezing. Cardiovascular: Negative for chest pain and palpitations. Gastrointestinal: Negative for abdominal pain, diarrhea, nausea and vomiting. Genitourinary: Negative for dysuria. Objective Physical Exam Constitutional: General: She is not in acute distress. Appearance: Normal appearance. HENT: Head: Normocephalic. Right Ear: Tympanic membrane normal. Left Ear: Tympanic membrane normal. Eyes: Extraocular Movements: Extraocular movements intact. Pupils: Pupils are equal, round, and reactive to light. Cardiovascular: Rate and Rhythm: Normal rate and regular rhythm. Heart sounds: No murmur heard. No friction rub. No gallop. Pulmonary: Effort: Pulmonary effort is normal. Breath sounds: Normal breath sounds. No wheezing, rhonchi or rales. Abdominal: General: Bowel sounds are normal. There is no distension. Palpations: Abdomen is soft. Tenderness: There is no abdominal tenderness. There is no guarding or rebound. Musculoskeletal: Cervical back: Neck supple. Right lower leg: No edema. Left lower leg: No edema. Neurological: Mental Status: She is alert. Assessment/Plan Problem List Items Addressed This Visit Primary osteoarthritis of right knee Continued pain and problems standing. Follow with ortho. Lumbar spondylosis - Primary Pain worse and use norco PRN. Relevant Medications HYDROcodone-acetaminophen ([facility]) 5-325 MG tablet Primary insomnia Sleeping well with medication and continue. Seasonal allergic rhinitis due to pollen Symptoms controlled with medication and continue. Class 2 severe obesity due to excess calories with serious comorbidity and body mass index (BMI) of37.0 to 37.9 in adult ([facility]) Patient overweight and difficult time losing weight. Discussed proper diet and regular aerobic exercise. Recommend Weight Watchers and need to limit calories and smaller portions. Need to increase activity and regular aerobic exercise several days a week for 30 minutes at a time. Interested in adipex and warned of potential cardiac side effects. Script written for first month and will need to recheck weight in 1 month. OARRS reviewed. Continue medications as prescribed. Relevant Medications phentermine (Adipex-P) 37.5 MG tablet Acute right ankle pain Unclear cause of pain but potentially related to arthritis. Check x-ray and uric acid. Treat with prednisone. Relevant Medications predniSONE (Deltasone) 50 MG tablet Other Relevant Orders Uric acid XR ankle 2 views right documented in this encounter Plan of Treatment Upcoming Encounters Date Type Department Care Team (Late st Contact Info) Description 09/05/2024 1:30 PM EDT Office Visit [facility] [address] [place] [address] Major Gallardo, DO [address] [place] [address] 09/06/2024 10:15 AM EDT Office Visit [facility] [address] [place] [phone] Jr. Enrique Saleh, DO [address] [place] [address] 02/24/2025 11:30 AM EST [facility] [address] [place] [address] [place] [address] Terry Acevedo MD [address] [place] [phone] Scheduled Orders Name Type Priority Associated Diagnoses Orde r Schedule Uric acid Lab Routine Acute right ankle pain Expected: 08/22/2024 (Approximate), Expires: 08/22/2025 XR ankle 2 views right Imaging Routine Acute right ankle pain Expected: 08/22/2024, Expires: 08/22/2025 documented as of this encounter Visit Diagnoses Diagnosis Lumbar spondylosis- Primary Lumbosacral spondylosis without myelopathy Primary osteoarthritis of right knee Acute right ankle pain Primary insomnia Persistent disorder of initiating or maintaining sleep Seasonal allergic rhinitis due to pollen Class 2 severe obesity due to excess calories with serious comorbidity and body mass index (BMI) of 37.0 to 37.9 in adult ([facility]) documented in this encounter Additional Health Concerns Assessment Noted Time PHQ-9 Depression Total Score: 17 024 1:17 PM EST documented as of this encounter Care Teams Hammerer Tab Relationship Specialty Start Date End Date Terry Acevedo MD [address] [place] [address] PCP - General Family Medicine 06/11/23 documented as of this encounter
--- OUTSIDE RECORDS SUMMARY | 2024-08-22 10:56 | XMS_ITS | Encounter Summary ---
Author Organization [facility] Address [address] [place] [address] Care Team Providers Care Heel Sander Rubber Name Role Phone Terry Acevedo MD Primary Care Provider [phone] Reason for Visit * Reason Onset Date Comments Med Refill 08/11/2024 Encounter Details Date Type Department Care Team (Late st Contact Info) Description 08/11/2024 [facility] [address] [place] [address] Terry Acevedo MD [address] [place] [address] Med Refill Social History Tobacco Use Types Packs/Day Years [...] on file documented as of this encounter Miscellaneous Notes * Telephone Encounter - Terry Acevedo MD - 08/11/2024 4:39 PM EDT Script sent. If no better over next few days will need seen. MAN * Telephone Encounter - MAGDALENO DUNCAN - 08/11/2024 11:40 AM EDT Patient states she has 2 more doses of antibiotic but is still having burning and frequency issues,asking if you want to call in another round of antibiotics? clm documented in this encounter Plan of Treatment Upcoming Encounters Date Type Department Care Team (Late st Contact Info) Description 09/05/2024 1:30 PM EDT Office Visit [facility] [address] [place] [phone] Major Gallardo, [address] [place] [address] 09/06/2024 10:15 AM EDT Office Visit [facility] [address] [place] [phone] Jr. Enrique Saleh, DO [address] [place] [address] 02/24/2025 11:30 AM EST Office Visit [facility] [address] [place] [address] Terry Acevedo MD [address] [place] [address] documented as of this encounter Visit Diagnoses Diagnosis Urinary tract infection without hematuria, site unspecified documented in this encounter Additional Health Concerns Assessment Noted Time PHQ-9 Depression Total Score: 17 024 1:17 PM EST documented as of this encounter Care Teams Heel Sander Rubber Relationship Specialty Start Date End Date Terry Acevedo MD [address] [place] [address] PCP - General Family Medicine 06/11/23 documented as of this encounter
--- OUTSIDE RECORDS SUMMARY | 2024-08-22 10:56 | XMS_ITS | Encounter Summary ---
Author Organization [facility] Address [id number] [place] [address] Care Team Providers Care Qi Specialist Name Role Phone Unavailable Primary Care Provider Unavailabl e Encounter Details Date Type Department Care Team (Latest Contact Info) Description 08/17/2024 Travel Social History Tobacco Use Types Packs/Day Years Used Date Smoking Tobacco: Former Cigarettes Smokeless Tobacco: Never Alcohol Use Standard Drinks/Week Comments Yes 0 (1 standard drink = 0.6 oz pur e alcohol) rare Childcare Answer Date Recorded Childcare Unknown 07/28/2018 Employment Answer Date Recorded Employment Unknown 07/28/2018 Hunger Screening Answer Date Recorded Within the past 12 months we worried whether our food would run out before we got money to buy more. Never True 08/17/2024 Within the past 12 months th e food we bought just didn't last and we didn't have money to get more. Never True 08/17/2024 Purpose - Life Answer Date Recorded Purpose and direction in life Unknown Comments Unknown Sex and Gender Information Value Date Recorded Sex Assigned at Not on file Legal Sex Female 11:24 AM EDT Gender Identity Not on file Sexual Orientation Not on file documented as of this encounter Plan of Treatment Not on file documented as of this encounter Visit Diagnoses Not on filedocumented in this encounter
--- OUTSIDE RECORDS SUMMARY | 2024-08-22 10:56 | XMS_ITS | Encounter Summary ---
Author Organization [facility] Address [address] [place] [address] Care Team Providers Care Sand Shoveler Name Role Phone Terry Acevedo MD Primary Care Provider [phone] Terry Acevdeo MD Unavailable Encounter Details Date Type Department Care Team (Late st Contact Info) Description 08/28/2022 Abstract [facility] [address] [facility] [address] [place] [address] Major Gallardo, DO [address] [facility] [address] [place] [address] Social History Tobacco Use Types Packs/Day Years Used Date Smoking Tobacco: Never Smokeless Tobacco: Never Tobacco Cessation:Counseling Given: Not Answered Alcohol Use Standard Drinks/Week Comments Never 0 (1 standard drink = 0.6 oz pur e alcohol) PHQ-2 Answer Date Recorded Patient Health Questionnaire-2 Score 0 08/29/2022 Comments Unknown Sex and Gender Information Value Date Recorded Sex Assigned at Not on file Legal Sex Female 8:25 PM EDT Gender Identity Not on file Sexual Orientation Not on file documented as of this encounter Functional Status * Over the past 2 weeks, how often have you been bothered by any of the following problems? Question Answer Date of Assessment Author Little interest or pleasure in doing things Not at all 08/29/2022 11:36 AM EDT Yanna Tate MA Feeling down, depressed, or hopeless Not at all 08/29/2022 11:36 AM EDT Yanna Tate MA Patient Health Questionnaire-2 Score 0 08/29/2022 11:36 AM EDT Adenike Tate MA documented as of this encounter Plan of Treatment Upcoming Encounters Date Type Department Care Team (Late st Contact Info) Description 09/05/2024 1:30 PM EDT Office Visit [facility] [address] [place] [address] Major Gallardo, DO [address] [place] [address] 09/06/2024 10:15 AM EDT Office Visit [facility] [address] [place] [phone] Jr. Enrique Saleh, DO [address] [place] [address] 02/24/2025 11:30 AM EST Office Visit [facility] [address] [place] [address] Terry Acevedo MD [address] [place] [address] documented as of this encounter Visit Diagnoses Not on filedocumented in this encounter Care Teams Sand Shoveler Relationship Specialty Start Date End Date Terry Acevedo MD [address] [place] [phone] PCP - General Family Medicine 06/11/23 Terry Acevedo MD [address] [place] [phone] PCP - [place] [employer] 10/18/23 documented as of this encounter
--- OUTSIDE RECORDS SUMMARY | 2024-08-22 10:56 | XMS_ITS | Encounter Summary ---
Author Organization [facility] Address [address] [place] [address] Care Team Providers Care Shearing Shed Worker Name Role Phone Terry Acevedo MD Primary Care Provider [phone] Terry Acevedo MD Unavailable Encounter Details Date Type Department Care Team (Late st Contact Info) Description 09/07/2023 Clinisync Result Encounter [facility] External Department Unsolicited Paty Gallardo, DO [address] [place] [address] Social History Tobacco Use Types Packs/Day Years [...] OB [address] [place] [address] Paty Gallardo DO [address] [place] [address] 09/06/2024 10:15 AM EDT Office Visit [facility] [address] [place] [phone] Jr. Enrique Saleh, DO [address] [place] [address] 02/24/2025 11:30 AM EST Office Visit [facility] [address] [place] [address] Terry Acevedo MD [address] [place] [address] documented as of this encounter Procedures Procedure Name Priority Date/Time Associated Diagnosis Comments MM TOMOSYNTHESIS SCREENING BI 09/07/2023 1:04 PM EDT documented in this encounter Results * MM TOMOSYNTHESIS SCREENING BI (09/07/2023 1:04 PM EDT) Anatomical Region Laterality Modality Other 09/07/2023 1:04 PM EDT Narrative 09/07/2023 1:05 PM EDT The [address] [address] Mammography Report Signed Patient: PHUONG RANDHAWA MR#: [id number] : 1960 Acct:[id number] Age/Sex: 62 / F ADM Date: 09/07/23 Loc: MAMMO Attending Dr: PATY GALLARDO Ordering Physician: PATY GALLARDO Results: Date of Service: 09/07/23 Follow Up: Procedure(s): MM tomosynthesis screening BI Accession Number(s): [id number] cc: PATY GALLARDO ; Terry Acevedo M.D. Patient Name: PHUONG RANDHAWA MR#: [id number] : 1960 Exam Date: 09/07/2023 Ordering Doctor: DR PATY GALLARDO RADIOLOGY REPORT PROCEDURE: MM TOMOSYNTHESIS SCREENING BI COMPARISON: MG MAMM SCREEN 3D JAYCE CAD, 06/16/2022. INDICATIONS: Screening Calculator Name NCI Breast Cancer Risk Assessment Tool 5 Year Breast Cancer Risk Not Reported. Lifetime Breast Cancer Risk Not Reported. Personal Breast Cancer No Personal Ovarian Cancer No Treatments None Family Cancers None LOCATION: The [facility] BREAST COMPOSITION: There are scattered areas of fibroglandular density. FINDINGS: DIAGNOSTIC CATEGORY 2--BENIGN FINDING. NO CHANGE FROM COMPARISON. Scattered benign-appearing nodules are present. Scattered benign-appearing calcifications are present. Scattered benign-appearing lymph nodes are present. RIGHT BREAST: No significant suspicious finding. LEFT BREAST: No significant suspicious finding. RECOMMENDATIONS: ROUTINE MAMMOGRAM AND CLINICAL EVALUATION IN 12 MONTHS. PLEASE NOTE: A NORMAL MAMMOGRAM DOES NOT EXCLUDE THE POSSIBILITY OF BREAST CANCER. A CLINICALLY SUSPICIOUS PALPABLE LUMP SHOULD BE BIOPSIED. Dictated by: Navid Johnson MD on 09/07/2023 at 12:54 Approved by: Navid Johnson MD on 09/07/2023 at 13:04 Dictated By: Navid Johnson M.D. Signed By: 09/07/23 1305 DD/ 1304 TD/TT: Fire Loss Prevention Engineer: Procedure Note Radiology, Radiologist, MD - 09/07/2023 [place] [address] Mammography Report Signed Patient: PHUONG RANDHAWA AMR#: [id number] : 1960Acct:[id number] Age/Sex: 62 / FADM Date: 09/07/23 Loc: MAMMO Attending Dr: PATY GALLARDO Ordering Physician: PATY GALLARDOResults: Date of Service: 09/07/23Follow Up: Procedure(s): MM tomosynthesis screening BI Accession Number(s): [id number] cc: PATY GALLARDO ; Terry Acevedo M.D. Patient Name: PHUONG RANDHAWA MR#: [id number] : 1960 Exam Date: 09/07/2023 Ordering Doctor: DR PATY GALLARDO RADIOLOGY REPORT PROCEDURE: MM TOMOSYNTHESIS SCREENING BI COMPARISON: MG MAMM SCREEN 3D JAYCE CAD, 06/16/2022. INDICATIONS: Screening Calculator Name NCI Breast Cancer Risk Assessment Tool 5 Year Breast Cancer Risk Not Reported. Lifetime Breast Cancer Risk Not Reported. Personal Breast Cancer No Personal Ovarian Cancer No Treatments None Family Cancers None LOCATION: The [facility] BREAST COMPOSITION: There are scattered areas of fibroglandulardensity. FINDINGS: DIAGNOSTIC CATEGORY 2--BENIGN FINDING. NO CHANGE FROM COMPARISON. Scattered benign-appearing nodules are present. Scatteredbenign-appearing calcifications are present. Scattered benign-appearing lymph nodes are present. RIGHT BREAST: No significant suspicious finding. LEFT BREAST: No significant suspicious finding. RECOMMENDATIONS: ROUTINE MAMMOGRAM AND CLINICAL EVALUATION IN 12 MONTHS. PLEASE NOTE: A NORMAL MAMMOGRAM DOES NOT EXCLUDE THE POSSIBILITY OFBREAST CANCER. A CLINICALLY SUSPICIOUS PALPABLE LUMP SHOULD BE BIOPSIED. Dictated by: Navid Johnson MD on 09/07/2023 at 12:54 Approved by: Navid Johnson MD on 09/07/2023 at 13:04 Dictated By: Navid Johnson M.D. Signed By:09/07/23 1305 DD/ 1304 TD/TT: Fire Loss Prevention Engineer: Paty Gallardo DO [facility] Final Resu lt documented in this encounter Visit Diagnoses Not on filedocumented in this encounter Additional Health Concerns Assessment Noted Time PHQ-9 Depression Total Score: 17 024 1:17 PM EST documented as of this encounter Care Teams Shearing Shed Worker Relationship Specialty Start Date End Date Terry Acevedo MD [address] [place] [address] PCP - General Family Medicine 06/11/23 Terry Acevedo MD [address] [place] [address] PCP - [place] [employer] 10/18/23 documented as of this encounter
--- OUTSIDE RECORDS SUMMARY | 2024-08-22 10:56 | XMS_ITS | Encounter Summary ---
Author Organization [facility] Address [address] [place] [address] Care Team Providers Care Reinforcer Name Role Phone Terry Acevedo MD Primary Care Provider [phone] Encounter Details Date Type Department Care Team (Late st Contact Info) Description 08/04[facility]2024 [facility] [address] [place] [address] Terry Acevedo MD [address] [place] [address] Social History Tobacco Use Types Packs/Day Years [...] Telephone Encounter - Terry Acevedo MD - 08/04/2024 4:06 PM EDT Script sent. If no better over next few days will need seen. MAN * Telephone Encounter - MAGDALENO DUNCAN - 08/04/2024 2:41 PM EDT Patient called states she has started with a UTI and asked if you would call in an antibiotic to the pharmacy. clm documented in this encounter Plan of Treatment Upcoming Encounters Date Type Department Care Team (Late st Contact Info) Description 09/05/2024 1:30 PM EDT Office Visit [facility] [address] [place] [address] Major Gallardo, DO [address] [place] [address] 09/06/2024 10:15 AM EDT Office Visit [facility] [address] [place] [address] Jr. Enrique Saleh, DO [address] [place] [address] 02/24/2025 11:30 AM EST Office Visit [facility] [address] [place] [address] [place] [address] Terry Acevedo MD [address] [place] [address] documented as of this encounter Visit Diagnoses Diagnosis Urinary tract infection without hematuria, site unspecified documented in this encounter Additional Health Concerns Assessment Noted Time PHQ-9 Depression Total Score: 17 024 1:17 PM EST documented as of this encounter Care Teams Reinforcer Relationship Specialty Start Date End Date Terry Acevedo MD [address] [place] [phone] PCP - General Family Medicine 06/11/23 documented as of this encounter
--- OUTSIDE RECORDS SUMMARY | 2024-08-22 10:56 | XMS_ITS | Clinical Summary ---
Author Organization [facility] Address [address] [place] [address] Care Team Providers Care Diabetes Manager Name Role Phone Terry Acevedo MD Primary Care Provider Allergies Active Allergy Reactions Criticality Noted Date Comments Bee Venom Anaphylaxis High 08/29/2022 Erythromycin Rash Low 06/18/2022 Sulfa Antibiotics Swelling,Rash Medium 06/18/2022 Sulfamethoxazole-Trimethoprim Rash Low 2022 Medications diazePAM (Valium) 10 MG tablet Take 10 mg by mouth 3 (three) times a day as needed. 023 Active Brexpiprazole (Rexulti) 2 MG tablet Take by mouth. Activ e venlafaxine XR (Effexor XR) 150 MG 24 hr capsule Take 150 mg by mouth in the morning and 150 mg before bedtime. Do not crush or chew. . Active amitriptyline (Elavil) 75 MG tablet Take 1 tablet by mouth at bedtime 023 Active EPINEPHrine (Epipen) 0.3 MG/0.3ML injection syringeIndication s:History of allergic reaction INJECT 1 (ONE) pen NEEDED 1 each 3 024 Active sucralfate (Carafate) 1 g tabletIndications :Gastroesophageal reflux disease without esophagitis Take 1 tablet (1 g) by mouth in the morning and 1 tablet (1 g) at noon and 1 tablet (1 g) in the evening and 1 tablet (1 g) before bedtime. Take before meals. 120 tablet 5 Active Hibiclens 4 % solution APPLY TO THE AFFECTED AREA(S) topically for a 1 time dose the morning OF surgery Active omeprazole (PriLOSEC) [address] capsuleIndication s:Gastroesophagea l reflux disease without esophagitis TAKE 1 CAPSULE BY MOUTH TWICE DAILY 60 capsule 5 024 Active cyclobenzaprine (Flexeril) 10 MG tabletIndications :Lumbar spondylosis Take 1 tablet (10 mg) by mouth 3 (three) times a day as needed for muscle spasms 60 tablet 2 Active oxybutynin XL (Ditropan-XL) 15 MG 24 hr tabletIndications :Overflow incontinence of urine Take 1 tablet (15 mg) by mouth Daily Do not crush, chew, or split. 30 tablet 5 025 Active meloxicam (Mobic) 15 MG tabletIndications :Bilateral primary osteoarthritis of knee TAKE 1 TABLET BY MOUTH ONCE DAILY 90 tablet 3 025 Active zolpidem (Ambien) 10 MG tabletIndications :Insomnia, unspecified Take 1 tablet (10 mg) by mouth at bedtime 30 tablet 2 Active topiramate (Topamax) 100 MG tablet Take 100 mg by mouth in the morning and 100 mg in the evening. Active phentermine (Adipex-P) 37.5 MG tabletIndications :Class 2 severe obesity due to excess calories with serious comorbidity and body mass index (BMI) of 37.0 to 37.9 in adult ([facility]) Take 1 tablet (37.5 mg) by mouth in the morning. Take before meals. 30 tablet 025 2024 Active HYDROcodone-aceta minophen ([place]) 5-325 MG tabletIndications :Lumbar spondylosis Take 1 tablet by mouth 4 (four) times a day as needed for moderate pain or severe pain for up to 15 days 60 tablet 025 2024 Active predniSONE (Deltasone) 50 MG tabletIndications :Acute right ankle pain Take 1 tablet (50 mg) by mouth Daily for 6 days 6 tablet 025 2024 Active PARoxetine (Paxil) 20 MG tablet Take 20 mg by mouth in the morning. 2024 Discontinued Fiber-Lax 625 MG tabletIndications :Chronic constipation TAKE 2 TABLETS BY MOUTH IN THE MORNING 60 tablet 5 024 2024 Discontinued ciprofloxacin (Cipro) 500 MG tabletIndications :Urinary tract infection without hematuria, site unspecified Take 1 tablet (500 mg) by mouth in the morning and 1 tablet (500 mg) before bedtime. Do all this for 7 days. 14 tablet 024 2024 Discontinued(R eorder) methylPREDNISolon e (Medrol Dospak) 4 MG tabletsIndication s:Acute pain of right knee Follow schedule on package instructions 21 tablet 025 2024 Discontinued methylPREDNISolon e (Medrol Dospak) 4 MG tabletsIndication s:Pain and swelling of right knee Follow schedule on package instructions 21 tablet 025 2024 Discontinued(M ed list cleanup) HYDROcodone-aceta minophen ([place]) 5-325 MG tabletIndications :Lumbar spondylosis Take 1 tablet by mouth 4 (four) times a day as needed for moderate pain or severe pain for up to 15 days 60 tablet 025 2024 Discontinued(R eorder) ciprofloxacin (Cipro) 500 MG tabletIndications :Urinary tract infection without hematuria, site unspecified Take 1 tablet (500 mg) by mouth in the morning and 1 tablet (500 mg) before bedtime. Do all this for 7 days. 14 tablet 025 2024 Discontinued(R eorder) ciprofloxacin (Cipro) 500 MG tabletIndications :Urinary tract infection without hematuria, site unspecified Take 1 tablet (500 mg) by mouth in the morning and 1 tablet (500 mg) before bedtime. Do all this for 7 days. 14 tablet 025 2024 Discontinued Active Problems Problem Noted Date Diagnosed Date Acute right ankle pain 08/22/2024 Assessment & Plan (08/22/2024 10:34 AM EDT): Unclear cause of pain but potentially related to arthritis. Check x-ray and uric acid. Treat with prednisone. Annual physical exam 02/24/2024 Assessment & Plan (02/24/2024 1:43 PM EST): Reviewed labs. Discussed proper diet and regular aerobic exercise. Need aerobic exercise 5-6 days a week for 30 minutes at a time. Smaller portions and limit total calories. Cologuard normal August 2023. Tetanus every 10 years. Advised not to smoke. Osteopenia of left femoral neck 02/24/2024 Lightheaded 11/19/2023 Assessment & Plan (11/19/2023 11:59 AM EDT): Severe symptoms after standing and likely related to recent surgery. Check labs. Fatigue 11/19/2023 Assessment & Plan (11/19/2023 11:59 AM EDT): Severe symptoms after standing and likely related to recent surgery. Check labs. Encounter for long-term (current) use of medicat ions 11/19/2023 Overflow incontinence of urine 11/19/2023 Assessment & Plan (02/24/2024 1:45 PM EST): Worsening symptoms and increase oxybutynin. Assessment & Plan (11/19/2023 11:59 AM EDT): Worsening urinary symptoms and try ditropan. Status post right knee replacement 09/09/2023 Chronic constipation 03/16/2023 Lower extremity edema 02/18/2023 Female stress incontinence 02/18/2023 Gastroesophageal reflux disease 02/18/2023 Assessment & Plan (02/18/2023 1:57 PM EST): Symptoms controlled with omeprazole and continue. Hyperhidrosis 02/18/2023 Hyperlipidemia 02/18/2023 MDD (major depressive disord er), recurrent episode, moderate 02/18/2023 Assessment & Plan (02/24/2024 1:45 PM EST): Symptoms worse with increased pain. Follow with psychiatry. Assessment & Plan (08/17/2023 11:35 AM EDT): Mood stable and follow with psychiatry. Peripheral polyneuropathy 02/18/2023 Lumbar spondylosis 02/18/2023 Assessment & Plan (08/22/2024 10:35 AM EDT): Pain worse and use norco PRN. Assessment & Plan (02/24/2024 1:44 PM EST): Pain worse and use norco PRN. Assessment & Plan (02/18/2023 1:58 PM EST): Pain stable and use norco PRN. Increase activity and walk regularly. Primary insomnia 02/18/2023 Assessment & Plan (08/22/2024 10:35 AM EDT): Sleeping well with medication and continue. Assessment & Plan (02/18/2023 1:58 PM EST): Sleeping well with medication and continue. Seasonal allergic rhinitis due to pollen 024 Assessment & Plan (08/22/2024 10:35 AM EDT): Symptoms controlled with medication and continue. Assessment & Plan (02/18/2023 1:58 PM EST): Symptoms controlled with medication and continue. Class 2 severe obesity due t o excess calories with serious comorbidity and body mass index (BMI) of 37.0 to 37.9 in adult 02/18/2023 Assessment & Plan (08/22/2024 10:34 AM EDT): Patient overweight and difficult time losing weight. [...] month. OARRS reviewed. Continue medications as prescribed. Assessment & Plan (02/24/2024 1:46 PM EST): Weight loss indicated. Assessment & Plan (02/18/2023 1:58 PM EST): Discussed proper diet and regular aerobic exercise. Recommend Weight Watchers and need to limit calories and smaller portions. Need to increase activity and regular aerobic exercise several days a week for 30 minutes at a time. Metabolic syndrome 02/18/2023 Assessment & Plan (02/18/2023 1:58 PM EST): Continued weight gain and check labs. Try ozempic. Anogenital warts 08/29/2022 Arthritis of finger 08/29/2022 History of total knee replacement 08/29/2022 Pain of left hand 08/29/2022 Presence of left artificial knee joint Arthritis of left knee 08/29/2022 Primary osteoarthritis of right knee 08/29/2022 Assessment & Plan (08/22/2024 10:35 AM EDT): Continued pain and problems standing. Follow with ortho. Assessment & Plan (02/24/2024 1:45 PM EST): Continued pain and problems standing. Follow with ortho. Assessment & Plan (11/19/2023 12:01 PM EDT): Continued pain and problems standing. Follow with ortho. Assessment & Plan (08/17/2023 11:34 AM EDT): Increased pain and follow with ortho for replacement. Primary osteoarthritis of left knee 08/29/2022 Varus deformity, not elsewhere classified, right knee 08/29/2022 Postoperative pain of right knee 08/29/2022 Assessment & Plan (11/19/2023 11:59 AM EDT): Continued pain and problems standing. Follow with ortho. Generalized anxiety disorder 12/31/2021 Panic attacks 12/31/2021 Resolved Problems Problem Noted Date Diagnosed Date Resolved Date Preoperative clearance 08/17/202311/18 Assessment & Plan (08/17/2023 11:34 AM EDT): Able to proceed with upcoming surgery at low risk for complications. No history of DM, CAD, or HTN. Not having chest pain or palpitations. Recommend routine postop testing. Acute cystitis without hematuria 08/29/2022 11/19/2023 Severe episode of recurrent major depressive disorder, without psychotic features 12/31/2021 Encounters Date Type Department Care Team Description 08/22/2024 9:30 AM EDT Office Visit [facility] [address] [place] [address] Terry Acevedo MD Lumbar spondylosis (Primary Dx); Primary osteoarthritis of right knee; Acute right ankle pain; Primary insomnia; Seasonal allergic rhinitis due to pollen; Class 2 severe obesity due to excess calories with serious comorbidity and body mass index (BMI) of 37.0 to 37.9 in adult ([facility]) 08/22/2024 Bamboo flowsheet [facility] [address] [place] [address] Terry Acevedo MD 08/11/2024 Telephone [facility] [address] [place] [address] Terry Acevedo MD Med Refill 08/04/2024 Telephone [facility] [address] [place] [address] Terry Acevedo MD 06/29/2024 11:15 AM EDT Office Visit [facility] [address] [place] [id number] Jr. Enrique Saleh DO Nerve pain (Primary Dx); History of right knee joint replacement 06/29/2024 Bamboo flowsheet [facility] [address] [place] [address] Jr. Enrique Saleh DO 06/29/2024 Travel 05/31/2024 Refill [facility] [address] [place] [address] Terry Acevedo MD Lumbar spondylosis 05/23/2024 Refill [facility] [address] [place] [address] Terry Acevedo MD Insomnia, unspecified from Last 3 Months Immunizations Immunization Administration Dates Next Due Influenza, injectable, quadrivalent, preservativ e free 12/27/2018 Moderna Bivalent Booster Vaccination 12/03/2021 Family History Medical History Relation Name Comments Hypertension Father Cancer Mother Hypertension Mother Mental illness Mother Stroke Mother Relation Name Status Comments Father Mother Alive Social History Tobacco Use Types Packs/Day Years Used Date Smoking Tobacco: Former Cigarettes Smokeless Tobacco: Never Tobacco Cessation:Counseling Given: Not [...] on file Sexual Orientation Not on file Last Filed Vital Signs Vital Sign Reading [...] Mass Index 37.11 08/22/2024 9:46 AM EDT Plan of Treatment Upcoming Encounters Date Type Department Care Team (Late st Contact Info) Description 09/05/2024 1:30 PM EDT Office Visit [facility] [address] [place] [address] Paty Guadarrama, DO [address] [place] [address] 09/06/2024 10:15 AM EDT Office Visit [facility] [address] [address] Jr. Enrique Saleh, DO [address] [place] [address] 02/24/2025 11:30 AM EST Office Visit [facility] [address] [place] [id number] Terry Acevedo MD [address] [place] [address] Health Maintenance Due Date Last Done Comments CT Colonography 1960 Colonoscopy 1960 FIT 1962 FOBT 1960 Sigmoidoscopy 1960 Mammogram 09/06/2024 09/07/2023, 06/16/2022 Influenza Vaccine (#1) 2024 12/27/2018 Pap Smear 08/31/2026 09/01/2023, 03/03/2023, 08/16 Colorectal Cancer Screening 09/01/2026 FIT-DNA 09/01/2026 09/02/2023 Cervical Cancer Screening 08/30/2027 HPV/Cotest 08/30/2027 08/29/2022 Procedures Procedure Name Priority Date/Time Associated Diagnosis Comments MM TOMOSYNTHESIS SCREENING BI 09/07/2023 1:04 PM EDT LAB COLOGUARD COLON CANCER SCREEN Routine 09/02/2023 11:15 AM EDT Colon cancer screening THINPREP TIS PAP AND HPV MRNA E6/E7 WITH REFLEX TO HPV 16,18/45 Routine 09/01/2023 12:00 AM EDT Encounter for Papanicolaou smear of cervix THINPREP TIS PAP AND HPV MRNA E6/E7 WITH REFLEX TO HPV 16,18/45 Routine 08/29/2022 11:58 AM EDT LGSIL of cervix of undetermined significance from Last 3 Months or Most Recently Relevant to Health Maintenance Results * MM TOMOSYNTHESIS SCREENING BI (09/07/2023 1:04 PM EDT) Anatomical Region Laterality Modality Other 09/07/2023 1:04 PM EDT Narrative 09/07/2023 1:05 [place] [address] Mammography Report Signed Patient: PHUONG CRUZ MR#: [id number] : 1960 Acct:[id number] Age/Sex: 62 / F ADM Date: 09/07/23 Loc: MAMMO Attending Dr: PATY GUADARRAMA Ordering Physician: PATY GUADARRAMA Results: Date of Service: 09/07/23 Follow Up: Procedure(s): MM tomosynthesis screening BI Accession Number(s): [id number] cc: PATY GUADARRAMA ; Terry Acevedo M.D. Patient Name: PHUONG CRUZ MR#: [id number] : 1960 Exam Date: 09/07/2023 Ordering Doctor: DR PATY GUADARRAMA RADIOLOGY REPORT PROCEDURE: MM TOMOSYNTHESIS SCREENING BI COMPARISON: MG MAMM SCREEN 3D JAYCE CAD, 06/16/2022. INDICATIONS: Screening Calculator Name NCI Breast Cancer Risk Assessment Tool 5 Year Breast Cancer Risk Not Reported. Lifetime Breast Cancer Risk Not Reported. Personal Breast Cancer No Personal Ovarian Cancer No Treatments None Family Cancers None LOCATION: [facility] BREAST COMPOSITION: There are scattered areas [...] Signed By: 09/07/23 1305 DD/ 1304 TD/TT: Car Salesman: Procedure Note Radiology, Radiologist, MD - 09/07/2023 [place] [address] Mammography Report Signed Patient: PHUONG CRUZ AMR#: [id number] : 1960Acct:[id number] Age/Sex: 62 / FADM Date: 09/07/23 Loc: MAMMO Attending Dr: PATY GUADARRAMA Ordering Physician: PATY GUADARRAMAResults: Date of Service: 09/07/23Follow Up: Procedure(s): MM tomosynthesis screening BI Accession Number(s): [id number] cc: PATY GUADARRAMA ; Terry Acevedo M.D. Patient Name: PHUONG CRUZ MR#: [id number] : 1960 Exam Date: 09/07/2023 Ordering Doctor: DR PATY GUADARRAMA RADIOLOGY REPORT PROCEDURE: MM TOMOSYNTHESIS SCREENING BI COMPARISON: MG MAMM SCREEN 3D JAYCE CAD, 06/16/2022. INDICATIONS: Screening Calculator Name NCI Breast Cancer Risk Assessment Tool 5 Year Breast Cancer Risk Not Reported. Lifetime Breast Cancer Risk Not Reported. Personal Breast Cancer No Personal Ovarian Cancer No Treatments None Family Cancers None LOCATION: [facility] BREAST COMPOSITION: There are scattered areas [...] M.D. Signed By:09/07/23 1305 DD/ 1304 TD/TT: Car Salesman: Paty Guadarrama DO [facility] Final Resu lt * Cologuard® colon cancer screening (09/02/2023 11:15 AM EDT) NONINV COLON CA DNA+OCC BLD SCRN STL-IMP Negative Negative 09/12/2023 5:38 PM EDT [facility] (CLIA #:[id number]) Comment: NEGATIVE TEST RESULT. A negative Cologuard result indicates a low likelihood that a colorectal cancer (CRC) or advanced adenoma (adenomatous polyps with more advanced pre-malignant features) is present. The chance that a person with a negative Cologuard test has a colorectal cancer is less than 1 in 1500 (negative predictive value >99.9%) or has an advanced adenoma is less than 5.3% (negative predictive value 94.7%). These data are based on a prospective cross-sectional study of 10,000 individuals at average risk for colorectal cancer who were screened with both Cologuard and colonoscopy. (Sena Lam et al, N Engl J Med 2014;370(14):6008-7809) The normal value (reference range) for this assay is negative. COLOGUARD RE-SCREENING RECOMMENDATION: Periodic colorectal cancer screening is an important part of preventive healthcare for asymptomatic individuals at average risk for colorectal cancer. Following a negative Cologuard result, the [place] Cancer Society and U.S. Multi-Society Task Force screening guidelines recommend a Cologuard re-screening interval of 3 years. References: [place] Cancer Society Guideline for Colorectal Cancer Screening: https://www.cancer.org/cancer/wncuy-ykdpua-lazokw/zjstqmxmt-mrkulados-xcefhid/ac s-rec ommendations.html.; Ren VERGARA, Naeem HANCOCK, Dominitz JK, Colorectal Cancer Screening: Recommendations for Physicians and Patients from the U.S. Multi-Society Task Force on Colorectal Cancer Screening , Am J Gastroenterology 2017; 112:4451-0166. TEST DESCRIPTION: Composite algorithmic analysis of stool DNA-biomarkers with hemoglobin immunoassay. Quantitative values of individual biomarkers are not reportable and are not associated with individual biomarker result reference ranges. Cologuard is intended for colorectal cancer screening of adults of either sex, 45 years or older, who are at average-risk for colorectal cancer (CRC). Cologuard has been approved for use by the U.S. FDA. The performance of Cologuard was established in a cross sectional study of average-risk adults aged 50-84. Cologuard performance in patients ages 45 to 49 years was estimated by sub-group analysis of near-age groups. Colonoscopies performed for a positive result may find as the most clinically significant lesion: colorectal cancer [4.0%], advanced adenoma (including sessile serrated polyps greater than or equal to 1cm diameter) [20%] or non- advanced adenoma [31%]; or no colorectal neoplasia [45%]. These estimates are derived from a prospective cross-sectional screening study of 10,000 individuals at average risk for colorectal cancer who were screened with both Cologuard and colonoscopy. (Sena Napoles. et al, N Engl J Med 2014;370(14):1204-6575.) Cologuard may produce a false negative or false positive result (no colorectal cancer or precancerous polyp present at colonoscopy follow up). A negative Cologuard test result does not guarantee the absence of CRC or advanced adenoma (pre-cancer). The current Cologuard screening interval is every 3 years. ([place] Cancer Society and U.S. Multi-Society Task Force). Cologuard performance data in a 10,000 patient pivotal study using colonoscopy as the reference method can be accessed at the following location: www.[employer]/results. Additional description of the Cologuard test process, warnings and precautions can be found at www.[email or web address] [email or web address].com. Stool specimen (specimen) 09/02/2023 11:15 AM EDT 09/04/2023 12:11 PM EDT us Terry Acevedo MD LAB MOLECULAR DIAGNOSTICS ORDERA BLES Final Result [facility] (CLIA #:[id number]) [place] [address] [place] [address], * (ABNORMAL) THINPREP TIS PAP AND HPV MRNA E6/E7 WITH REFLEX TO HPV 16,18/45 (09/01/2023 12:00 AM EDT) CLINICAL INFORMATION [facility] Comment:None given LMP [facility] Comment:2005 PREV. PAP [facility] Comment:LGSIL, HPV+ PREV. BX [facility] Comment:None given SOURCE [facility] Comment:None given STATEMENT OF ADEQUACY [facility] Comment: Satisfactory for evaluation. Endocervical/transformation zone component present. GENERAL CATEGORIZATION (A) [facility] Comment:Cytology Results: Ep ithelial Cell Abnormality INTERPRETATION/RESUL T (A) [facility] Comment:Low Grade Squamous I ntraepithelial Lesion (LSIL) COMMENT [facility] Comment: This Pap test has been evaluated with computer assisted technology. ASSOCIATE DIRECTOR OF BIOSTATISTICS [facility] Comment: LLT, CT(ASCP) CT screening location: [facility], [address] [place] [address]. PATHOLOGIST [facility] Comment: Justice Keller MD, PhD, M.B.A. Board Certified in Anatomic and Clinical Pathology Board Certified in Cytopathology (electronic signature) For questions regarding this report call Anatomic Pathology at [phone] (ALWAYS MESSAGE) [facility] Comment: EXPLANATORY NOTE: The Pap is a screening test for cervical cancer. It is not a diagnostic test and is subject to false negative and false positive results. It is most reliable when a satisfactory sample, regularly obtained, is submitted with relevant clinical findings and history, and when the Pap result is evaluated along with historic and current clinical information. HPV MRNA E6/E7 Detected (A) Not Detected [facility] Comment: Methodology: Sample Wrapper-Mediated Amplification This assay detects E6/E7 viral messenger RNA (mRNA) from 14 high-risk HPV types (16,18,31,33,35,39,45,51,52,56,58,59,66,68). Cervical sources are required for HPV testing. If a vaginal source from a patient who has had a total hysterectomy with removal of cervix was submitted, please contact the testing laboratory for alternative testing options. For additional information, please refer to http://education.Notable [employer].Breadtrip/faq/CEI611g9 (This link if provided for information/ educational purposes only.) Swab (Endocervix) 09/01/2023 024 4:35 AM EDT Narrative Resulting Agency Comment Performing Organization Information Site ID: [id number] Name: [facility] Address: [address] [place] [address], [address] [place] [id number] Director: Rikki Astorga MD Site ID: [id number] [facility] Address: [address] [place] [address] [place] [address] Director: Justice Keller MD,PHD,RL Paty Guadarrama DO LAB CYTOLOGY ORDERABLES Binta garry Result [facility] * (ABNORMAL) THINPREP TIS PAP AND HPV MRNA E6/E7 WITH REFLEX TO HPV 16,18/45 (08/29/2022 11:58 AM EDT) CLINICAL INFORMATION [facility] Comment:None given LMP [facility] Comment:None given PREV. PAP [facility] Comment:None given PREV. BX [facility] Comment:None given SOURCE [facility] Comment:None given STATEMENT OF ADEQUACY [facility] Comment: Satisfactory for evaluation. Endocervical/transformation zone component present. GENERAL CATEGORIZATION (A) [facility] Comment:Cytology Results: Ep ithelial Cell Abnormality INTERPRETATION/RESUL T (A) [facility] Comment:Low Grade Squamous I ntraepithelial Lesion (LSIL) COMMENT [facility] Comment: This Pap test has been evaluated with computer assisted technology. ASSOCIATE DIRECTOR OF BIOSTATISTICS [facility] Comment: Reference Range: ZL, CT(ASCP) CT screening location: [facility], [address] [place] [address], [place] [address]. PATHOLOGIST [facility] Comment: Justice Keller MD, PhD, M.B.A. Board Certified in Anatomic and Clinical Pathology Board Certified in Cytopathology (electronic signature) For questions regarding this report call Anatomic Pathology at [phone] (ALWAYS MESSAGE) [facility] Comment: EXPLANATORY NOTE: The Pap is a screening test for cervical cancer. It is not a diagnostic test and is subject to false negative and false positive results. It is most reliable when a satisfactory sample, regularly obtained, is submitted with relevant clinical findings and history, and when the Pap result is evaluated along with historic and current clinical information. HPV MRNA E6/E7 Detected (A) Not Detected [facility] Comment: Methodology: Sample Wrapper-Mediated Amplification This assay detects E6/E7 viral messenger RNA (mRNA) from 14 high-risk HPV types (16,18,31,33,35,39,45,51,52,56,58,59,66,68). Cervical sources are required for HPV testing. If a vaginal source from a patient who has had a total hysterectomy with removal of cervix was submitted, please contact the testing laboratory for alternative testing options. For additional information, please refer to http://education.Novel/faq/WQU923h3 (This link if provided for information/ educational purposes only.) Swab 08/29/2022 11:5 8 AM EDT 08/30/2022 12:08 AM EDT Narrative Resulting Agency Comment Performing Organization Information Site ID: [id number] Name: [facility] Address: [address] [place] [address], [address] [place] [phone] Director: Rikki Astorga MD Site ID: [id number] Name: [facility] Address: [address] [place] [phone] Director: Justice Keller Paty Guadarrama DO LAB CYTOLOGY ORDERABLES Binta l Result [facility] from Last 3 Months or Most Recently Relevant to Health Maintenance Insurance [facility] Care Teams Diabetes Manager Relationship Specialty Start Date End Date Terry Acevedo MD [address] [place] [address] PCP - General Family Medicine 06/11/23
--- OUTSIDE RECORDS SUMMARY | 2024-08-22 10:56 | XMS_ITS | Clinical Summary ---
Author Organization [employer] Address [id number] [address] [place] [address] Care Team Providers Care Step Finisher Name Role Phone Unavailable Primary Care Provider Unavailabl e Allergies Active Allergy Reactions Criticality Noted Date Comments Erythromycin 06/18/2022 Sulfa (Sulfonamide Antibiotics) 04/2022 Medications * This document contains information received from the source organization and may not represent a complete record from that organization. zolpidem (AMBIEN) 10 mg tablet 12/28/19 22 Active meloxicam (MOBIC) 15 mg tablet Take 1 tablet (15 mg total) by mouth in the morning. 12/11/19 22 Active omeprazole (PriLOSEC) 40 mg capsule Take 1 capsule (40 mg total) by mouth in the morning and 1 capsule (40 mg total) before bedtime. 11/01/19 22 Active sucralfate (CARAFATE) 1 gram tablet Take 1 tablet (1 g total) by mouth as needed in the morning and 1 tablet (1 g total) as needed at noon and 1 tablet (1 g total) as needed in the evening and 1 tablet (1 g total) as needed before bedtime. 12/14/19 22 Active amitriptyline (ELAVIL) 50 mg tablet TAKE 1 TABLET BY MOUTH NIGHTLY * TAKE WITH 75 mg TABLETS * 90 tablet 3 10/05/19 24 Active diazePAM (VALIUM) 10 mg tabletIndicati ons:Panic attacks TAKE 1 TABLET BY MOUTH THREE TIMES DAILY NEEDED FOR ANXIETY 90 tablet 1 12/28/19 24 Active amitriptyline (ELAVIL) 75 mg tabletIndicati ons:Severe episode of recurrent major depressive disorder, without psychotic features (CMS-HCC) TAKE 1 TABLET BY MOUTH NIGHTLY 90 tablet 3 12/30/19 24 Active HYDROcodone-ac etaminophen (NORCO) 5-325 mg per tablet Take 1 tablet by mouth as needed in the morning and 1 tablet as needed at noon and 1 tablet as needed in the evening and 1 tablet as needed before bedtime. 02/23/19 25 Active cyclobenzaprin e (FLEXERIL) 10 mg tablet Take 1 tablet (10 mg total) by mouth as needed in the morning and 1 tablet (10 mg total) as needed at noon and 1 tablet (10 mg total) as needed in the evening. 02/23/19 25 Active oxybutynin XL (DITROPAN XL) 15 mg 24 hr tablet Take 1 tablet (15 mg total) by mouth in the morning. 03/30/19 25 Active phytonadione, vitamin K1, (MEPHYTON) 5 mg tablet Take 1 tablet (5 mg total) by mouth once. Active venlafaxine XR (EFFEXOR-XR) 150 mg 24 hr capsuleIndicat ions:Severe episode of recurrent major depressive disorder, without psychotic features (CMS-HCC) TAKE 2 CAPSULES BY MOUTH IN THE MORNING 180 capsule 3 06/21/19 25 Active brexpiprazole (REXULTI) 3 mg tabletIndicati ons:Severe episode of recurrent major depressive disorder, without psychotic features (CMS-HCC) Take 1 tablet (3 mg total) by mouth in the morning. 30 tablet 2 07/13/19 25 Active topiramate (TOPAMAX) 100 mg tablet Take 1 tablet (100 mg total) by mouth in the morning and 1 tablet (100 mg total) before bedtime. 180 tablet 3 08/09/19 25 Active ferrous sulfate 325 (65 FE) mg tablet Take 1 tablet (325 mg total) by mouth daily with breakfast. 025 Discontinued( erapy completed) topiramate (TOPAMAX) 100 mg tablet Take 1 tablet (100 mg total) by mouth in the morning and at bedtime. 180 tablet 1 11/04/19 24 025 Discontinued Active Problems Problem Noted Date Diagnosed Date Severe episode of recurrent major depressive disorder, without psychotic features 12/31/2021 Generalized anxiety disorder 12/31/2021 Panic attacks 12/31/2021 Encounters * This document contains information received from the source organization and may not represent a complete record from that organization. Date Type Department Care Team Description 08/17/2024 Travel 08/10/2024 Travel 07/20/2024 Travel 07/01/2024 Travel 06/22/2024 Travel 05/30/2024 Travel from Last 3 Months Family History Medical History Relation Name Comments Anxiety disorder Father Depression Mother Relation Name Status Comments Father Mother Social History Tobacco Use Types Packs/Day Years Used Date Smoking Tobacco: Former Cigarettes Smokeless Tobacco: Never Tobacco Cessation:Counseling Given: Not Answered Alcohol Use Standard Drinks/Week Comments Yes 0 [...] Sign Reading Time Taken Comments Blood Pressure 132/84 08/17/2024 11:31 AM EDT Pulse 101 08/17/2024 11:31 AM EDT Temperature - - Respiratory Rate - - Oxygen Saturation - - Inhaled Oxygen Concentration - - Weight 99.8 kg (220 lb) 06/22/2024 11:21 AM EDT Height - - Body Mass Index - - Plan of Treatment Health Maintenance Due Date Last Done Comments Depression Screening 1974 Adult BMI Screening 1980 DTaP,Tdap and Td Vaccines (1 - Tdap) 1981 Pap Smear 10/09/1983 Zoster (Shingles) Vaccine (1 of 2) 2012 COVID-19 Vaccine (2023-2 5 season) 2023 12/03/2021, 09/07/2021, 12/15/2020, Additional history exists Influenza Vaccine 10/17/2024 12/27/2018 Tobacco Screening 08/17/2025 08/17/2024 Medical Devices Not on file Insurance [address] [place], [place] [id number] [place] [address]
--- OUTSIDE RECORDS SUMMARY | 2024-08-22 10:56 | XMS_ITS | Encounter Summary ---
Author Organization [employer] Address [id number] [address] [place] [address] Care Team Providers Care Lbd Teacher Name Role Phone Unavailable Primary Care Provider Unavailabl e Encounter Details Date Type Department Care Team (Late st Contact Info) Description 01/24/2022 Telephone [facility] [address] [facility] [address] [place] [phone] Keily Mayfield LPN Social History Tobacco Use Types Packs/Day Years Used Date Smoking Tobacco: Never Assessed Childcare Answer Date Recorded Childcare Unknown 07/28/2018 Employment Answer Date Recorded Employment Unknown 07/28/2018 Purpose - Life Answer Date Recorded Purpose and direction in life Unknown Comments Unknown Sex and Gender Information Value Date Recorded Sex Assigned at Not on file Legal Sex Female 11:24 AM EDT Gender Identity Not on file Sexual Orientation Not on file COVID-19 Exposure Response Date Recorded In the last month, have you been in contact with someone who was confirmed or suspected to have Coronavirus / COVID-19? No / Unsure 01/23/2022 3:13 PM EST documented as of this encounter Miscellaneous Notes * Telephone Encounter - Keily Mayfield LPN - 01/24/2022 4:55 PM EST PT CALLED RE PUMP AND DEXCOM SUPPLIES documented in this encounter Plan of Treatment Not on file documented as of this encounter Visit Diagnoses Not on filedocumented in this encounter
--- OUTSIDE RECORDS SUMMARY | 2024-08-22 10:56 | XMS_ITS | Encounter Summary ---
Author Organization [employer] Address [id number] [address] [place] [address] Care Team Providers Care Emergency Room Clerk Name Role Phone Unavailable Primary Care Provider Unavailabl e Encounter Details Date Type Department Care Team (Latest Contact Info) Description 08/10/2024 Travel Social History Tobacco Use Types Packs/Day [...] got money to buy more. Never True 06/22/2024 Within the past 12 months th e food we bought just didn't last and we didn't have money to get more. Never True 06/22/2024 Purpose - Life Answer Date Recorded Purpose [...]
--- OUTSIDE RECORDS SUMMARY | 2024-08-22 10:56 | XMS_ITS | Encounter Summary ---
Author Organization [facility] Address [address] [place] [address] Care Team Providers Care Commodities Broker Name Role Phone Terry Acevedo MD Primary Care Provider [phone] Encounter Details Date Type Department Care Team (Late st Contact Info) Description 08/22/2024 Bamboo flowsheet [facility] [address] [place] [address] Terry Acevedo MD [address] [place] [phone] Social History Tobacco Use Types Packs/Day Years [...] OB [address] [place] [address] Major Gallardo, DO [address] [place] [address] 09/06/2024 10:15 AM EDT Office Visit [facility] [address] [facility] [place] [phone] Jr. Enrique Saleh, DO [address] [place] [address] 02/24/2025 11:30 AM EST Office Visit [facility] [address] [place] [phone] Terry Acevedo MD [address] [place] [phone] documented as of this encounter Visit Diagnoses Not on filedocumented in this encounter Additional Health Concerns Assessment Noted Time PHQ-9 Depression Total Score: 17 024 1:17 PM EST documented as of this encounter Care Teams Commodities Broker Relationship Specialty Start Date End Date Terry Acevedo MD [address] [place] [phone] PCP - General Family Medicine 06/11/23 documented as of this encounter
--- NOTE | 2024-08-22 11:09 | XR_ITS ---
The [address] [address] Patient Name: MANUEL RANDHAWA MRN: [id number] date: 1960 Sex: F Assigned Patient Location: LAB Current Patient Location: LAB Accession/Order Number: [id number] Exam Date: 08/22/2024 12:04 Report Date: 08/22/2024 12:06 At the request of: STAR MCLAUGHLIN MD Procedure: XR ankle RT 2V RIGHT ANKLE - 2 views CLINICAL DATA: Right ankle pain for the past 5 days. No injury. COMPARISON: None AP and lateral views were obtained. There is osteopenia. There is no acute fracture or dislocation. The talar dome is intact. Minimal degenerative change is seen at the malleoli. There is a plantar calcaneal spur as well as ossicles and calculation within the plantar aponeurosis. No significant soft tissue swelling is noted. XR/XR ankle RT 2V IMPRESSION: OSTEOPENIA AND DEGENERATIVE CHANGES. NO ACUTE BONY FINDINGS. Impression dictated by: Adriana Robledo M.D. 08/22/2024 12:06 PM Dictation Location: [place] [address] Electronically authenticated by: [id number] Y Date: 08/22/2024 12:06
[2024-08-22 11:39] LABS: Uric Acid 5.7 mg/dL (2.6-6.0)
== END 2024-08-22 10:51 | disposition home or self-care (01) ==
LOC: LAB 10:53
PROVIDERS: PCP Family Medicine; Visit Provider Family Medicine
DX: M25.571 Pain in right ankle and joints of right foot (principal); M85.871 Other specified disorders of bone density and structure, right ankle and foot
CPT/HCPCS: 36415; 73600; 84550

== ENCOUNTER 2024-10-03 12:40 | Outpatient (OUT) | payer BC, SELFPAY ==
--- OUTSIDE RECORDS SUMMARY | 2024-09-19 07:36 | XMS_ITS | Encounter Summary ---
Author Organization [facility] [employer] [facility] Address [id number] [address] [place] [address] Care Team Providers Care Dry Boss Name Role Phone Unavailable Primary Care Provider Unavailabl e Reason for Visit * Diagnostic Imaging (Routine) - Authorized Specialty Diagnoses / Procedures Referred By Benjy rondon Referred To Contact Radiology Diagnoses Presence of right artificial knee joint Acute pain of right knee Procedures NM bone scan three phase Enrique Saleh Jr., DO [address] [facility] [address] [place] [address] Phone: tel: fax: Referral ID Status Reason Start Date Expiration Date V isits Requested Visits Authorized [id number] Authorized 09/06/2024 09/06/2025 5 5 Encounter Details Date Type Department Care Team (Late st Contact Info) Description 09/19/2024 7:36 AM EDT Hospital Encounter [facility] - Nuclear MedIcine [address] [place] [address] Enrique Saleh Jr., DO [address] [facility] [address] [place] [address] Arrived Social History Tobacco Use Types Packs/Day Years [...] on file documented as of this encounter Procedures Procedure Name Priority Date/Time Associated Diagnosis Comments NM BONE SCAN THREE PHASE Routine 09/19/2024 11:35 AM EDT Presence of right artificial knee joint Acute pain of right knee documented in this encounter Results * NM bone scan three phase (09/19/2024 11:35 AM EDT) Anatomical Region Laterality Modality Nuc Med N/A Nuclear Medicine 09/19/2024 1:45 PM EDT Narrative 09/19/2024 1:50 PM EDT HISTORY: A 63-year-old female with a history of the right knee replacement August 2023. Left knee replacement 6 years ago. Complaining of an acute right knee pain. TECHNIQUE: Three phase radionuclide bone imaging is performed by using 25.0 mCi of technetium 99m MDP. COMPARISON: Comparison is made with plain film radiographs of the right knee of 12/21/[address] scan of the right knee of 02/19/2024 FINDINGS: Flow study overlying the both knee joints reveal normal and symmetrical flow and uptake. Blood pool images reveal somewhat increase uptake adjacent to the tibial component of the right knee prosthesis. Multiple delayed spore skeletal images of both knee joints are obtained. There is evidence of bilateral knee replacements. There is a increase uptake right proximal tibia adjacent to the prosthesis. Changes suggest to loosening of the prosthesis. There is some mild degree of increase uptake in the left knee joint, suggestive of postsurgical change. Images of the both lower extremities are obtained in anterior and posterior projections. There is heterogeneous uptake in the visualized lumbar spine consistent with a degenerative arthritis. IMPRESSION: * There is a total right knee replacement. Appearance raises the possibility of loosening of the tibial component of the right knee prosthesis. A clinical correlation is suggested. * Status post total left knee replacement with postsurgical change. 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 Finalized by Vikram Mcfadden MD on 09/19/2024 1:50 PM Procedure Note Vikram Mcfadden MD - 09/19/2024 HISTORY: A 63-year-old female with a history of the right knee replacementJuly 2023. Left knee replacement 6 years ago. Complaining of an acuteright knee pain. TECHNIQUE: Three phase radionuclide bone imaging is performed by using25.0 mCi of technetium 99m MDP. COMPARISON: Comparison is made with plain film radiographs of the rightknee of 12/21/[address] scan of the right knee of 02/19/2024 FINDINGS: Flow study overlying the both knee joints reveal normal andsymmetrical flow and uptake. Blood pool images reveal somewhat increase uptake adjacent to the tibialcomponent of the right knee prosthesis. Multiple delayed spore skeletal images of both knee joints are obtained.There is evidence of bilateral knee replacements. There is a increaseuptake right proximal tibia adjacent to the prosthesis. Changes suggest toloosening of the prosthesis. There is some mild degree of increase uptakein the left knee joint, suggestive of postsurgical change. Images of the both lower extremities are obtained in anterior andposterior projections. There is heterogeneous uptake in the visualizedlumbar spine consistent with a degenerative arthritis. IMPRESSION: * There is a total right knee replacement. Appearance raises thepossibility of loosening of the tibial component of the right kneeprosthesis. A clinical correlation is suggested. * Status post total left knee replacement with postsurgical change. 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 Finalized by Vikram Mcfadden MD on 09/19/2024 1:50 PM us Enrique Saleh Jr., DO IMG NM ORDERABLES Binta l Result documented in this encounter Visit Diagnoses Not on filedocumented in this encounter
--- OUTSIDE RECORDS SUMMARY | 2024-09-19 07:36 | XMS_ITS | Encounter Summary ---
Author Organization [facility] Address [id number] [address] [place] [address] Care Team Providers Care College [employer] Dean Name Role Phone Unavailable Primary Care Provider Unavailabl e Reason for Referral * Diagnostic Imaging (Routine) - Authorized Specialty Diagnoses / Procedures Referred By Benjy rondon Referred To Contact Radiology Diagnoses Presence of right artificial knee joint Acute pain of right knee Procedures NM bone scan three phase Enrique Saleh Jr., [address] [facility] [address] [place] [address] Phone: tel: fax: Referral ID Status Reason Start Date Expiration Date V isits Requested Visits Authorized [id number] Authorized 09/06/2024 09/06/2025 5 5 Reason for Visit * Diagnostic Imaging (Routine) - Authorized Specialty Diagnoses / Procedures Referred By Benjy rondon Referred To Contact Radiology Diagnoses Presence of right artificial knee joint Acute pain of right knee Procedures NM bone scan three phase Enrique Saleh Jr., DO [address] [facility] [address] [place] [address] Phone: tel: fax: Referral ID Status Reason Start Date Expiration Date V isits Requested Visits Authorized [id number] Authorized 09/06/2024 09/06/2025 5 5 Encounter Details Date Type Department Care Team (Late st Contact Info) Description 09/19/2024 7:36 AM EDT Hospital Encounter [facility] - Nuclear MedIcine [address] [place] [address] Enrique Saleh Jr., DO [address] [place] [address] Presence of right artificial knee joint; Acute pain of right knee Social History Tobacco Use Types Packs/Day Years [...] Result documented in this encounter Visit Diagnoses Diagnosis Presence of right artificial knee joint Acute pain of right knee documented in this encounter Administered Medications Inactive Administered Medications - up to 3 most recent administrations Medication Order MAR Action Action Date Dose Rate Site kit prep [id number]-cyoyinfat sod 20 mg recon soln 25 millicurie 25 millicurie, intravenous, Once in imaging, contrast, Radiopharmaceutical, Starting on 09/19/24 at 0738, For 1 dose Given 09/19/2024 7:51 AM EDT 25 millicuries documented in this encounter
--- OUTSIDE RECORDS SUMMARY | 2024-09-19 10:58 | XMS_ITS | Encounter Summary ---
Author Organization [facility] [employer] [facility] Address [id number] [address] [place] [address] Care Team Providers Care Remote Pilot Operator Name Role Phone Unavailable Primary Care Provider Unavailabl e Reason for Visit * Diagnostic Imaging (Routine) - Authorized Specialty Diagnoses / Procedures Referred By Benjy rondon Referred To Contact Radiology Diagnoses Presence of right artificial knee joint Acute pain of right knee Procedures NM bone scan three phase Enrique Saleh Jr., DO [address] [facility] [address] [place] [address] Phone: tel: fax: Referral ID Status Reason Start Date Expiration Date V isits Requested Visits Authorized [id number] Authorized 09/06/2024 09/06/2025 5 5 Encounter Details Date Type Department Care Team (Late st Contact Info) Description 09/19/2024 10:58 AM EDT Hospital Encounter [facility] - Nuclear MedIcine [address] [place] [address] Enrique Saleh Jr., DO [address] [facility] [address] [place] [address] Arrived Social History Tobacco Use Types Packs/Day [...]
--- OUTSIDE RECORDS SUMMARY | 2024-09-22 11:15 | XMS_ITS | Encounter Summary ---
Author Organization [facility] Address [address] [facility] [place] [address] Care Team Providers Care Emergency Generator Mechanic Name Role Phone Terry Acevedo MD Primary Care Provider [phone] Reason for Visit * Reason Comments Follow-up Adipex f/u UTI Possible uti Encounter Details Date Type Department Care Team (Late st Contact Info) Description 09/22/2024 11:15 AM EDT Office Visit [facility] [address] [place] [address] Terry Acevedo MD [address] [place] [address] Lumbar spondylosis (Primary Dx); Primary osteoarthritis of right knee; Postoperative pain of right knee; Class 2 severe obesity due to excess calories with serious comorbidity and body mass index (BMI) of 37.0 to 37.9 in adult ([facility]) Social History Tobacco Use Types Packs/Day Years Used Date Smoking Tobacco: Former Cigarettes Smokeless Tobacco: Never Alcohol Use Standard Drinks/Week Comments Never 0 (1 standard drink = 0.6 oz pur e alcohol) AUDIT-C Answer Date Recorded Q1: How often do you have a drink containing alcohol? Never 09/05/2024 Q2: How many drinks containi ng alcohol do you have on a typical day when you are drinking? Patient does not drink Q3: How often do you have si x or more drinks on one occasion? Never 09/05/2024 PHQ-2 Answer Date Recorded Patient Health Questionnaire-2 Score 0 09/05/2024 Comments No Sex and Gender Information Value Date Recorded Sex Assigned at Not on file Legal Sex Female 8:25 PM EDT Gender Identity Not on file Sexual Orientation Not on file documented as of this encounter Last Filed Vital Signs Vital Sign Reading Time Taken Comments Blood Pressure 140/78 09/22/2024 11:30 AM EDT Pulse 105 09/22/2024 11:30 AM EDT Temperature 35.6 C (96 F) 09/22/2024 11:30 AM EDT Respiratory Rate 20 09/22/2024 11:30 AM EDT Oxygen Saturation 96% 09/22/2024 11:30 AM EDT Inhaled Oxygen Concentration - - Weight 98.4 kg (217 lb) 09/22/2024 11:30 AM EDT Height 165.1 cm (5' 5 ) 09/22/2024 11:30 AM EDT Body Mass Index 36.11 09/22/2024 11:30 AM EDT documented in this encounter Progress Notes * Terry Acevedo MD - 09/22/2024 12:16 PM EDTAssociated Problem(s): Primary osteoarthritis of right knee Continued pain and problems standing. Follow with ortho. * Terry Acevedo MD - 09/22/2024 12:16 PM EDTAssociated Problem(s): Postoperative pain of right knee Continued pain and follow with ortho. * Terry Acevedo MD - 09/22/2024 12:16 PM EDTAssociated Problem(s): Lumbar spondylosis Pain worse and use norco PRN. * Terry Acevedo MD - 09/22/2024 12:16 PM EDTAssociated Problem(s): Class 2 severe obesity due to excess calories with serious comorbidity and body mass index (BMI) of 37.0 to 37.9 in adult ([facility]) Patient doing well with adipex and lost 6 pounds in first month. Tolerating well with only mild drymouth. Continue with dietary changes and less calories. Need to limit snacking and smaller portions. Continue healthier choices. Need regular aerobic exercise 30 minutes at a time 5-6 days a week. Refill for second month. OARRS reviewed. Continue meds as prescribed. If develop new or worsening sympt oms contact office. * Terry Acevedo MD - 09/22/2024 11:15 AM EDT Images from the original note were not included. Subjective Patient ID: Phuong Cruz is a 63 y.o. female who presents for Follow-up (Adipex f/u) and UTI (Possible uti). Follow up back pain, knee pain, and weight. Continued pain in right knee after replacement. Pain with walking and standing. Seen by ortho and pain management. At times knee unsteady and feels like will give out. Recent bone scan with changes suggestive of loosening of prosthesis. Back pain unchanged. Continues to have pain in low back and across top hips. No radiation into gluteal region or down legs. Pain increased with walking, bending, and lifting. At times severe and uses norco PRN which helps. Tries to increase activity and walk regularly. Taking adipex and weight down 6 pounds. Tolerating medication without side effects except mild dry mouth. Not as hungry with medication. Smaller portions and not snacking. Increased fruits and vegetables. Tries to limit total daily calories. Review of Systems Respiratory: Negative for cough, [...] pain and problems standing. Follow with ortho. Postoperative pain of right knee Continued pain and follow with ortho. Lumbar spondylosis - Primary Pain worse and use norco PRN. Class 2 severe obesity due to excess calories with serious comorbidity and body mass index (BMI) of37.0 to 37.9 in adult (CMS-HCC) Patient doing well with adipex and lost 6 pounds in first month. Tolerating well with only mild drymouth. Continue with dietary changes and less calories. Need to limit snacking and smaller portions. Continue healthier choices. Need regular aerobic exercise 30 minutes at a time 5-6 days a week. Refill for second month. OARRS reviewed. Continue meds as prescribed. If develop new or worsening sympt oms contact office. Relevant Medications phentermine (Adipex-P) 37.5 MG tablet documented in this encounter Plan of Treatment Upcoming Encounters Date Type Department Care Team (Late st Contact Info) Description 10/04/2024 9:30 AM EDT Office Visit [facility] [place] [place] [phone] Jr. Enrique Saleh DO [address] [facility] [address] [place] [address] 11/22/2024 1:30 PM EDT Office Visit [facility] [address] [place] [phone] Terry Acevedo MD [address] [place] [address] 02/24/2025 11:30 AM EST Office Visit [facility] [address] [place] [address] Terry Acevedo MD [address] [place] [address] 09/08/2025 10:00 AM EDT Office Visit [facility] [place] [facility] [address] [place] [address] Major Gallardo DO [address] [place] [address] documented as of this encounter Visit Diagnoses Diagnosis Lumbar spondylosis- Primary Lumbosacral spondylosis without myelopathy Primary osteoarthritis of right knee Postoperative pain of right knee Class 2 severe obesity due to excess calories with serious comorbidity and body mass index (BMI) of 37.0 to 37.9 in adult ([facility]) documented in this encounter Additional Health Concerns Assessment Noted Time PHQ-9 Depression Total Score: 17 024 1:17 PM EST documented as of this encounter Care Teams Emergency Generator Mechanic Relationship Specialty Start Date End Date Terry Acevedo MD [address] [place] [phone] PCP - General Family Medicine 06/11/23 documented as of this encounter
--- OUTSIDE RECORDS SUMMARY | 2024-09-23 13:37 | XMS_ITS | Encounter Summary ---
Author Organization [facility] Address [id number] [address] [place] [address] Care Team Providers Care Sales Floor Team Leader Name Role Phone Unavailable Primary Care Provider Unavailabl e Reason for Referral * Diagnostic Imaging (Routine) - Authorized Specialty Diagnoses / Procedures Referred By Benjy rondon Referred To Contact Radiology Diagnoses Tendonitis of ankle, right Procedures MR ankle right without contrast Enrique Saleh Jr., DO [address] [facility] [address] [place] [address] Phone: tel: fax: Referral ID Status Reason Start Date Expiration Date V isits Requested Visits Authorized [id number] Authorized 09/06/2024 09/06/2025 1 1 Reason for Visit * Diagnostic Imaging (Routine) - Authorized Specialty Diagnoses / Procedures Referred By Benjy rondon Referred To Contact Radiology Diagnoses Tendonitis of ankle, right Procedures MR ankle right without contrast Enrique Saleh Jr., DO [address] [facility] [address] [place] [address] Phone: tel: fax: Referral ID Status Reason Start Date Expiration Date V isits Requested Visits Authorized [id number] Authorized 09/06/2024 09/06/2025 1 1 Encounter Details Date Type Department Care Team (Late st Contact Info) Description 09/23/2024 1:37 PM EDT - 09/23/2024 1:59 PM EDT Hospital [facility] [address] [place] [address] Enrique Saleh Jr., DO [address] [place] [address] [place], [place] [id number] Tendonitis of ankle, right Discharge Disposition: Home Social History Tobacco Use Types Packs/Day Years [...] on file documented as of this encounter Medications at Time of Discharge amitriptyline (ELAVIL) 50 mg tablet TAKE 1 TABLET BY MOUTH NIGHTLY * TAKE WITH 75 mg TABLETS * 90 tablet 3 10/05/2023 amitriptyline (ELAVIL) 75 mg tabletIndications :Severe episode of recurrent major depressive disorder, without psychotic features (CMS-HCC) TAKE 1 TABLET BY MOUTH NIGHTLY 90 tablet 3 12/30/2023 brexpiprazole (REXULTI) 3 mg tabletIndications :Severe episode of recurrent major depressive disorder, without psychotic features (CMS-HCC) Take 1 tablet (3 mg total) by mouth in the morning. 30 tablet 2 07/12/2024 cyclobenzaprine (FLEXERIL) 10 mg tablet Take 1 tablet (10 mg total) by mouth as needed in the morning and 1 tablet (10 mg total) as needed at noon and 1 tablet (10 mg total) as needed in the evening. 02/24/2024 diazePAM (VALIUM) 10 mg tabletIndications :Panic attacks TAKE 1 TABLET BY MOUTH THREE TIMES DAILY NEEDED FOR ANXIETY 90 tablet 1 12/28/2023 HYDROcodone-aceta minophen (NORCO) 5-325 mg per tablet Take 1 tablet by mouth as needed in the morning and 1 tablet as needed at noon and 1 tablet as needed in the evening and 1 tablet as needed before bedtime. 02/24/2024 meloxicam (MOBIC) 15 mg tablet Take 1 tablet (15 mg total) by mouth in the morning. 12/10/2021 omeprazole (PriLOSEC) 40 mg capsule Take 1 capsule (40 mg total) by mouth in the morning and 1 capsule (40 mg total) before bedtime. 10/31/2021 oxybutynin XL (DITROPAN XL) 15 mg 24 hr tablet Take 1 tablet (15 mg total) by mouth in the morning. 03/30/2024 phytonadione, vitamin K1, (MEPHYTON) 5 mg tablet Take 1 tablet (5 mg total) by mouth once. sucralfate (CARAFATE) 1 gram tablet Take 1 tablet (1 g total) by mouth as needed in the morning and 1 tablet (1 g total) as needed at noon and 1 tablet (1 g total) as needed in the evening and 1 tablet (1 g total) as needed before bedtime. 12/13/2021 topiramate (TOPAMAX) 100 mg tablet Take 1 tablet (100 mg total) by mouth in the morning and 1 tablet (100 mg total) before bedtime. 180 tablet 3 08/08/2024 venlafaxine XR (EFFEXOR-XR) 150 mg 24 hr capsuleIndication s:Severe episode of recurrent major depressive disorder, without psychotic features (CMS-HCC) TAKE 2 CAPSULES BY MOUTH IN THE MORNING 180 capsule 3 06/20/2024 zolpidem (AMBIEN) 10 mg tablet 12/27/2021 documented as of this encounter Plan of Treatment Scheduled Orders Name Type Priority Associated Diagnoses Orde r Schedule MR ankle right without contrast Imaging Routine Tendonitis of ankle, right Once for 1 Occurrences starting 09/23/2024 until 09/23/2024 documented as of this encounter Visit Diagnoses Diagnosis Tendonitis of ankle, right documented in this encounter
--- OUTSIDE RECORDS SUMMARY | 2024-09-23 14:00 | XMS_ITS | Encounter Summary ---
Author Organization [facility] Address [id number] [address] [place] [address] Care Team Providers Care Store Hand Name Role Phone Unavailable Primary Care Provider Unavailabl e Encounter Details Date Type Department Care Team (Latest Contact Info) Description 09/23/2024 2:00 PM EDT - 09/23/2024 11:59 PM EDT Hospital Encounter [facility] - Radiology [address] [place] [address] Chase Hogan MD [address] [place] [address] Encounter for imaging to screen for metal prior to MRI Discharge Disposition: Home Social History Tobacco Use [...] Procedure Name Priority Date/Time Associated Diagnosis Comments XR SINUS 1 OR 2 VWS STAT 09/23/2024 2 :05 PM EDT Encounter for imaging to screen for metal prior to MRI documented in this encounter Results * X-ray sinus 1 or 2 views (09/23/2024 2:05 PM EDT) Anatomical Region Laterality Modality Face, Neuro Computed Radiogr aphy 09/23/2024 2:13 PM EDT Narrative 09/23/2024 2:14 PM EDT Exam: Sinus 2 view. HISTORY: Pre-MRI screening for metal. IMPRESSION: 1. I see no evidence of a radiopaque foreign body. There is postoperative change involving the sinuses with metallic clips. This is a known finding. Finalized by Sung Mobley MD on 09/23/2024 2:14 PM Procedure Note Sung Mobley MD - 09/23/2024 Exam: Sinus 2 view. HISTORY: Pre-MRI screening for metal. IMPRESSION: 1. I see no evidence of a radiopaque foreign body. There is postoperativechange involving the sinuses with metallic clips. This is a knownfinding. Finalized by Sung Mobley MD on 09/23/2024 2:14 PM Chase Hogan MD IMG DIAGNOSTIC IMAGING ORDERABLE S Final Result documented in this encounter Visit Diagnoses Diagnosis Encounter for imaging to screen for metal prior to MRI Special screening for other specified conditions documented in this encounter
--- OUTSIDE RECORDS SUMMARY | 2024-09-30 10:45 | XMS_ITS | Encounter Summary ---
Author Organization [facility] Address [address] [place] [address] Care Team Providers Care Vp Scientific Name Role Phone Terry Acevedo MD Primary Care Provider [phone] Reason for Visit * Reason Comments Med Refill Encounter Details Date Type Department Care Team (Late st Contact Info) Description 09/28/2024 [facility] [address] [place] [address] Terry Acevedo MD [address] [place] [address] Overflow incontinence of urine Social History Tobacco Use Types Packs/Day Years [...] encounter Miscellaneous Notes * Telephone Encounter - MAGDALENO DUNCAN - 09/28/2024 2:16 PM EDT MEDICATION SENT TO [facility] documented in this encounter Plan of Treatment Upcoming Encounters Date Type Department Care Team (Late st Contact Info) Description 10/04/2024 9:30 AM EDT Office Visit [facility] [address] [place] [phone] Jr. Enrique Saleh DO [address] [place] [address] 11/22/2024 1:30 PM EDT Office Visit [facility] [address] [place] [address] Terry Acevedo MD [address] [place] [address] 02/24/2025 11:30 AM EST Office Visit [facility] [address] [place] [address] Terry Acevedo MD [address] [place] [address] 09/08/2025 10:00 AM EDT Office Visit [facility] [place] [facility] [address] [place] [address] Major Gallardo DO [address] [place], [place] [address] documented as of this encounter Visit Diagnoses Diagnosis Overflow incontinence of urine Overflow incontinence documented in this encounter Additional Health Concerns Assessment Noted Time PHQ-9 Depression Total Score: 17 024 1:17 PM EST documented as of this encounter Care Teams Vp Scientific Relationship Specialty Start Date End Date Terry Acevedo MD [address] [place] [address] PCP - General Family Medicine 06/11/23 documented as of this encounter
--- OUTSIDE RECORDS SUMMARY | 2024-09-30 10:45 | XMS_ITS | Encounter Summary ---
Author Organization [facility] Address [address] [facility] [place] [address] Care Team Providers Care Fire Extinguisher Repairer Name Role Phone Terry Acevedo MD Primary Care Provider [phone] Encounter Details Date Type Department Care Team (Late st Contact Info) Description 09/19/2024 External Result Encounter [facility] [address] [place] [address] Jr. Enrique Saleh, DO [address] [place], [place] [phone] Social History Tobacco Use Types Packs/Day Years [...] 10/04/2024 9:30 AM EDT Office Visit [facility] [address] [place] [address] Jr. Enrique Saleh, DO [address] [place] [address] 11/22/2024 1:30 PM EDT Office Visit [facility] [address] [place] [address] Terry Acevedo MD [address] [place] [address] 02/24/2025 11:30 AM EST Office Visit [facility] [address] [place] [address] Terry Acevdeo MD [address] [place] [address] 09/08/2025 10:00 AM EDT Office Visit [facility] [address] [place] [address] Major Gallardo DO [address] [place] [address] documented as of this encounter Procedures Procedure Name Priority Date/Time Associated Diagnosis Comments NM BONE AND OR JOINT 3 PHASE [id number] 09/19/2024 1:51 PM EDT documented in this encounter Results * NM BONE AND OR JOINT 3 PHASE [id number] (09/19/2024 1:51 PM EDT) Anatomical Region Laterality Modality Radiographic Pratibha ging 09/19/2024 1:51 PM EDT Narrative 09/19/2024 1:50 PM EDT THIS EXAM WAS PERFORMED AT [facility] HISTORY: A 63-year-old female with a history [...] MD on 09/19/2024 1:50 PM Procedure Note Radiology, Radiologist, - 09/19/2024 THIS EXAM WAS PERFORMED AT [facility] HISTORY: A 63-year-old female with a history of the right knee replacementAugust 2023. Left knee replacement 6 years ago. [...] Vikram Mcfadden MD on 09/19/2024 1:50 PM [facility] XR PROCEDURES Final Result documented in this encounter Visit Diagnoses Not on filedocumented in this encounter Additional Health Concerns Assessment Noted Time PHQ-9 Depression Total Score: 17 024 1:17 PM EST documented as of this encounter Care Teams Fire Extinguisher Repairer Relationship Specialty Start Date End Date Terry Acevedo MD [address] [facility] [place] [address] PCP - General Family Medicine 06/11/23 documented as of this encounter
--- OUTSIDE RECORDS SUMMARY | 2024-09-30 10:45 | XMS_ITS | Encounter Summary ---
Author Organization [facility] Address [address] [facility] [place] [address] Care Team Providers Care Gem Setter Name Role Phone Terry Acevedo MD Primary Care Provider [phone] Terry Acevedo MD Unavailable Encounter Details Date Type Department Care Team (Late st Contact Info) Description 08/28/2022 Abstract [facility] [place] [facility] [address] [facility] [address] [place] [phone] Major Gallardo DO [address] [facility] [address] [place] [address] Social History Tobacco Use Types [...] problems? Question Answer Date of Assessment Author Radha interest or pleasure in doing things Not [...] 10/04/2024 9:30 AM EDT Office Visit [facility] [address] [place] [address] Jr. Enrique Saleh DO [address] [place] [address] 11/22/2024 1:30 PM EDT Office Visit [facility] [address] [place] [address] Terry Acevedo MD [address] [place] [address] [place] [address] 02/24/2025 11:30 AM EST Office Visit [facility] [address] [place] [address] Terry Acevedo MD [address] [place] [address] [place] [address] 09/08/2025 10:00 AM EDT Office Visit [facility] [place] [facility] [address] [place] [address] Major Gallardo DO [address] [place], [place] [phone] documented as of this encounter Visit Diagnoses Not on filedocumented in this encounter Care Teams Gem Setter Relationship Specialty Start Date End Date Terry Acevedo MD [address] [place] [place] [address] PCP - General Family Medicine 06/11/23 Terry Acevedo MD [address] [place] [place] [address] PCP - [place] [employer] 10/18/23 documented as of this encounter
--- OUTSIDE RECORDS SUMMARY | 2024-09-30 10:45 | XMS_ITS | Encounter Summary ---
Author Organization [facility] Address [address] [place] [address] Care Team Providers Care Drywall Sprayer Name Role Phone Terry Acevedo MD Primary Care Provider [phone] Encounter Details Date Type Department Care Team (Late st Contact Info) Description 09/22/2024 Bamboo flowsheet [facility] [address] [place] [address] Terry Acevedo MD [address] [place] [address] Social History Tobacco Use Types Packs/Day Years [...] 10/04/2024 9:30 AM EDT Office Visit [facility] [address] [place] [address] Jr. Enrique Saleh DO [address] [place] [address] 11/22/2024 1:30 PM EDT Office Visit [facility] [address] [place] [address] Terry Acevedo MD [address] [place] [address] 02/24/2025 11:30 AM EST Office Visit [facility] [address] [place] [address] Terry Acevedo MD [address] [place] [address] [place] [address] 09/08/2025 10:00 AM EDT Office Visit [facility] [place] [facility] [address] [place] [address] Major Gallardo DO [address] [place] [address] documented as of this encounter Visit Diagnoses Not on filedocumented in this encounter Additional Health Concerns Assessment Noted Time PHQ-9 Depression Total Score: 17 024 1:17 PM EST documented as of this encounter Care Teams Drywall Sprayer Relationship Specialty Start Date End Date Terry Acevedo MD [address] [place] [address] PCP - General Family Medicine 06/11/23 documented as of this encounter
--- OUTSIDE RECORDS SUMMARY | 2024-09-30 10:45 | XMS_ITS | Encounter Summary ---
Author Organization [facility] Address [address] [place] [address] Care Team Providers Care Commercial Trailer Truck Driver Name Role Phone Terry Acevedo MD Primary Care Provider [phone] Reason for Visit * Reason Onset Date Comments unable to complete mri 09/23/2024 Encounter Details Date Type Department Care Team (Late st Contact Info) Description 09/23/2024 Telephone [facility] [place] [facility] [address] [facility] [address] [place] [address] Jr. Enrique Saleh, DO [address] [place] [address] unable to complete mri Social History Tobacco Use Types Packs/Day Years [...] encounter Miscellaneous Notes * Telephone Encounter - Taniya Jhaveri - 09/27/2024 10:21 AM EDT Has appt 10/04/24 * Telephone Encounter - Taniya Jhaveri - 09/23/2024 2:19 PM EDT R ankle pain, MRI of R ankle was ordered Per Beata at [facility], patient has clips in her head they were put in over 10 years agoand they were unable to complete the MRI Please advise next step documented in this encounter Plan of Treatment Upcoming Encounters Date Type Department Care Team (Late st Contact Info) Description 10/04/2024 9:30 AM EDT Office Visit [facility] [address] [place] [phone] Jr. Enrique Saleh DO [address] [place] [address] 11/22/2024 1:30 PM EDT Office Visit [facility] [address] [place] [address] Terry Acevedo MD [address] [place] [address] [place] [address] 02/24/2025 11:30 AM EST Office Visit [facility] [address] [place] [phone] Terry Acevedo MD [address] [place] [address] 09/08/2025 10:00 AM EDT Office Visit [facility] [place] [facility] [address] [place] [address] Major Gallardo DO [address] [place] [address] documented as of this encounter Visit Diagnoses Not on filedocumented in this encounter Additional Health Concerns Assessment Noted Time PHQ-9 Depression Total Score: 17 024 1:17 PM EST documented as of this encounter Care Teams Commercial Trailer Truck Driver Relationship Specialty Start Date End Date Terry Acevedo MD [address] [place] [address] PCP - General Family Medicine 06/11/23 documented as of this encounter
--- OUTSIDE RECORDS SUMMARY | 2024-09-30 10:45 | XMS_ITS | Clinical Summary ---
Author Organization [facility] Address [id number] [address] [place] [address] Care Team Providers Care Writing Manager Name Role Phone Unavailable Primary Care Provider Unavailabl e Allergies Active Allergy Reactions Criticality Noted Date Comments Erythromycin 06/18/2022 Sulfa (Sulfonamide Antibiotics) 05/0 04/2022 Medications * This document contains information received from the source organization and may not represent a complete record from that organization. zolpidem (AMBIEN) 10 mg tablet 12/27/2021 Active meloxicam (MOBIC) 15 mg tablet Take 1 tablet (15 mg total) by mouth in the morning. 12/10/2021 Active omeprazole (PriLOSEC) 40 mg capsule Take 1 capsule (40 mg total) by mouth in the morning and 1 capsule (40 mg total) before bedtime. 10/31/2021 Active sucralfate (CARAFATE) 1 gram tablet Take 1 tablet (1 g total) by mouth as needed in the morning and 1 tablet (1 g total) as needed at noon and 1 tablet (1 g total) as needed in the evening and 1 tablet (1 g total) as needed before bedtime. 12/13/2021 Active amitriptyline (ELAVIL) 50 mg tablet TAKE 1 TABLET BY MOUTH NIGHTLY * TAKE WITH 75 mg TABLETS * 90 tablet 3 10/05/2023 Active diazePAM (VALIUM) 10 mg tabletIndicatio ns:Panic attacks TAKE 1 TABLET BY MOUTH THREE TIMES DAILY NEEDED FOR ANXIETY 90 tablet 1 12/28/2023 Active amitriptyline (ELAVIL) 75 mg tabletIndicatio ns:Severe episode of recurrent major depressive disorder, without psychotic features (CMS-HCC) TAKE 1 TABLET BY MOUTH NIGHTLY 90 tablet 3 12/30/2023 Active HYDROcodone-vibha taminophen (NORCO) 5-325 mg per tablet Take 1 tablet by mouth as needed in the morning and 1 tablet as needed at noon and 1 tablet as needed in the evening and 1 tablet as needed before bedtime. 02/24/2024 Active cyclobenzaprine (FLEXERIL) 10 mg tablet Take 1 tablet (10 mg total) by mouth as needed in the morning and 1 tablet (10 mg total) as needed at noon and 1 tablet (10 mg total) as needed in the evening. 02/24/2024 Active oxybutynin XL (DITROPAN XL) 15 mg 24 hr tablet Take 1 tablet (15 mg total) by mouth in the morning. 03/30/2024 Active phytonadione, vitamin K1, (MEPHYTON) 5 mg tablet Take 1 tablet (5 mg total) by mouth once. Active venlafaxine XR (EFFEXOR-XR) 150 mg 24 hr capsuleIndicati ons:Severe episode of recurrent major depressive disorder, without psychotic features (CMS-HCC) TAKE 2 CAPSULES BY MOUTH IN THE MORNING 180 capsule 3 06/20/2024 Active brexpiprazole (REXULTI) 3 mg tabletIndicatio ns:Severe episode of recurrent major depressive disorder, without psychotic features (CMS-HCC) Take 1 tablet (3 mg total) by mouth in the morning. 30 tablet 2 07/12/2024 Active topiramate (TOPAMAX) 100 mg tablet Take 1 tablet (100 mg total) by mouth in the morning and 1 tablet (100 mg total) before bedtime. 180 tablet 3 08/08/2024 Active Active Problems Problem Noted Date Diagnosed Date Severe episode of recurrent major depressive disorder, without psychotic features 12/31/2021 Generalized anxiety disorder 12/31/2021 Panic attacks 12/31/2021 Encounters * This document contains information received from the source organization and may not represent a complete record from that organization. Date Type Department Care Team Description 09/23/2024 2:00 PM EDT - 09/23/2024 11:59 PM EDT Hospital Encounter [facility] - Radiology [address] [place] [address] Chase Hogan MD Encounter for imaging to screen for metal prior to MRI Discharge Disposition: Home 09/23/2024 1:37 PM EDT - 09/23/2024 1:59 PM EDT Hospital Encounter [facility] - MRI Imaging [address] [place] [address] Enrique Saleh Jr., DO Tendonitis of ankle, right Discharge Disposition: Home 09/23/2024 Travel 09/19/2024 10:58 AM EDT Hospital Encounter [facility] - Nuclear MedIcine [address] [place] [address] Enrique Saleh Jr., DO Arrived 09/19/2024 7:36 AM EDT Hospital Encounter [facility] - Nuclear MedIcine [address] [place] [address] Enrique Saleh Jr., DO Arrived 09/19/2024 7:36 AM EDT Hospital Encounter [facility] - Nuclear MedIcine [address] [place] [address] Enrique Saleh Jr., Presence of right artificial knee joint; Acute pain of right knee 09/19/2024 Travel 09/07/2024 Travel 08/17/2024 Travel 08/10/2024 Travel 07/20/2024 Travel 07/01/2024 Travel from Last 3 Months Family History [...] 12/27/2018 Tobacco Screening 08/17/2025 08/17/2024 Medical Devices Implanted Type Area Welt Butter Hand Device Identifier Shelf Expiration Date Model / Serial / Lot Implant Clip Implant Clip Brain Procedures Procedure Name Priority Date/Time Associated Diagnosis Comments XR SINUS 1 OR 2 VWS STAT 09/23/2024 2 :05 PM EDT Encounter for imaging to screen for metal prior to MRI NM BONE SCAN THREE PHASE Routine 09/19/2024 11:35 AM EDT Presence of right artificial knee joint Acute pain of right knee from Last 3 Months Results * X-ray sinus 1 or 2 [...] This is a knownfinding. Finalized by Sung Mboley MD on 09/23/2024 2:14 PM us Chase Hogan MD IMG DIAGNOSTIC IMAGING ORDERABLE S Final Result * NM bone scan three phase (09/19/2024 [...] Vikram Mcfadden MD on 09/19/2024 1:50 PM Enrique Saleh Jr., DO IMG [place] ORDERABLES Binta l Result from Last 3 Months Insurance [address] [place] [id number] [facility]
--- OUTSIDE RECORDS SUMMARY | 2024-09-30 10:45 | XMS_ITS | Encounter Summary ---
Author Organization [facility] Address [address] [place] [address] Care Team Providers Care Rack Puncher Name Role Phone Terry Acevedo MD Primary Care Provider [phone] Encounter Details Date Type Department Care Team (Late st Contact Info) Description 08/22/2024 Results Follow-Up [facility] [address] [place] [address] Terry Acevedo MD [address] [place] [address] ALL URIC ACID Social History Tobacco Use Types Packs/Day Years [...] 10/04/2024 9:30 AM EDT Office Visit [facility] [address] [place] [address] Jr. Enrique Saleh, DO [address] [place] [address] 11/22/2024 1:30 PM EDT Office Visit [facility] [address] [place] [address] Terry Acevedo MD [address] [place] [address] 02/24/2025 11:30 AM EST Office Visit [facility] [address] [place] [address] Terry Acevedo MD [address] [place] [address] 09/08/2025 10:00 AM EDT Office Visit [facility] [address] [place] [address] Major Gallardo DO [address] [place] [address] documented as of this encounter Visit Diagnoses Not on filedocumented in this encounter Additional Health Concerns Assessment Noted Time PHQ-9 Depression Total Score: 17 024 1:17 PM EST documented as of this encounter Care Teams Rack Puncher Relationship Specialty Start Date End Date Terry Acevedo MD [address] [place] [address] PCP - General Family Medicine 06/11/23 documented as of this encounter
--- OUTSIDE RECORDS SUMMARY | 2024-09-30 10:45 | XMS_ITS | Encounter Summary ---
Author Organization [facility] Address [address] [place] [address] [place] [address] Care Team Providers Care Estate Administrator Name Role Phone Terry Acevedo MD Primary Care Provider [phone] Terry Acevedo MD Unavailable Encounter Details Date Type Department Care Team (Late st Contact Info) Description 09/07/2023 Clinisync Result Encounter [facility] External Department Unsolicited Paty Gallardo, DO [address] [place] [address] Social History Tobacco Use Types Packs/Day Years [...] 10/04/2024 9:30 AM EDT Office Visit [facility] [address] [place] [address] Jr. Enrique Saleh, DO [address] [place] [address] 11/22/2024 1:30 PM EDT Office Visit [facility] [address] [place] [address] Terry Acevedo MD [address] [place] [address] 02/24/2025 11:30 AM EST Office Visit [facility] [address] [place] [address] Terry Acevedo MD [address] [place] [address] 09/08/2025 10:00 AM EDT Office Visit [facility] [address] [place] [phone] Paty Gallardo DO [address] [place] [address] documented as of this encounter Procedures Procedure Name Priority Date/Time Associated Diagnosis Comments MM TOMOSYNTHESIS SCREENING BI 09/07/2023 1:04 PM EDT documented in this encounter Results * MM TOMOSYNTHESIS SCREENING BI (09/07/2023 1:04 PM EDT) Anatomical Region Laterality Modality Other 09/07/2023 1:04 PM EDT Narrative 09/07/2023 1:05 PM EDT [facility] [place] [id number] Mammography Report Signed Patient: PHUONG RANDHAWA MR#: [id number] : 1960 Acct:[id number] Age/Sex: 62 / F ADM Date: 09/07/23 Loc: MAMMO Attending Dr: PATY GALLARDO Ordering Physician: PATY GALLARDO Results: Date of Service: 09/07/23 Follow Up: Procedure(s): MM tomosynthesis screening BI Accession Number(s): [id number] cc: PATY GALLARDO ; Terry Acevedo M.D. Patient Name: PHUONG RANDHAWA MR#: [id number] : 1960 Exam Date: 09/07/2023 Ordering Doctor: DR PATY GALLARDO RADIOLOGY REPORT PROCEDURE: MM TOMOSYNTHESIS SCREENING BI COMPARISON: MG MAMM SCREEN 3D JAYCE CAD, 06/16/2022. INDICATIONS: Screening Calculator Name NCI Breast Cancer Risk Assessment Tool 5 Year Breast Cancer Risk Not Reported. Lifetime Breast Cancer Risk Not Reported. Personal Breast Cancer No Personal Ovarian Cancer No Treatments None Family Cancers None LOCATION: [facility] BREAST COMPOSITION: There are scattered areas of [...] Signed By: 09/07/23 1305 DD/ 1304 TD/TT: Application Integrator: Procedure Note Radiology, Radiologist, - 09/07/[address] [address] Mammography Report Signed Patient: PHUONG RANDHAWA AMR#: [id number] : 1960Acct:[id number] Age/Sex: 62 / FADM Date: 09/07/23 Loc: MAMMO Attending Dr: PATY GALLARDO Ordering Physician: PATY GALLARDOResults: Date of Service: 09/07/23Follow Up: Procedure(s): MM tomosynthesis screening BI Accession Number(s): [id number] cc: PATY GALLARDO ; Terry Acevedo M.D. Patient Name: PHUONG RANDHAWA MR#: [id number] : 1960 Exam Date: 09/07/2023 Ordering Doctor: DR PATY GALLARDO RADIOLOGY REPORT PROCEDURE: MM TOMOSYNTHESIS SCREENING BI COMPARISON: MG MAMM SCREEN 3D JAYCE CAD, 06/16/2022. INDICATIONS: Screening Calculator Name NCI Breast Cancer Risk Assessment Tool 5 Year Breast Cancer Risk Not Reported. Lifetime Breast Cancer Risk Not Reported. Personal Breast Cancer No Personal Ovarian Cancer No Treatments None Family Cancers None LOCATION: [facility] BREAST COMPOSITION: There are scattered areas of [...] M.D. Signed By:09/07/23 1305 DD/ 1304 TD/TT: Application Integrator: Paty Gallardo DO [facility] Final Resu lt documented in this encounter Visit Diagnoses Not on filedocumented in this encounter Additional Health Concerns Assessment Noted Time PHQ-9 Depression Total Score: 17 024 1:17 PM EST documented as of this encounter Care Teams Estate Administrator Relationship Specialty Start Date End Date Terry Acevedo MD [address] [place] [address] PCP - General Family Medicine 06/11/23 Terry Acevedo MD [address] [place] [address] PCP - Tessa Sam 10/18/23 documented as of this encounter
--- OUTSIDE RECORDS SUMMARY | 2024-09-30 10:45 | XMS_ITS | Encounter Summary ---
Author Organization [facility] Address [id number] [address] [place] [address] Care Team Providers Care Turret Punch Press Operator Name Role Phone Unavailable Primary Care Provider Unavailabl e Encounter Details Date Type Department Care Team (Late st Contact Info) Description 01/24/2022 Telephone [facility] [address] [facility] [address] [place] [address] Keily Mayfield LPN Social History Tobacco Use [...]
--- OUTSIDE RECORDS SUMMARY | 2024-09-30 10:45 | XMS_ITS | Encounter Summary ---
Author Organization [facility] Address [address] [place] [address] Care Team Providers Care Building Mover Name Role Phone Terry Acevedo MD Primary Care Provider [phone] Encounter Details Date Type Department Care Team (Late st Contact Info) Description 08/22/2024 Results Follow-Up [facility] [address] [place] [address] Terry Acevedo MD [address] [place] [address] XR ankle 2 views right Social History Tobacco Use Types Packs/Day Years [...] 10/04/2024 9:30 AM EDT Office Visit [facility] [address] [place] [address] Jr. Enrique Saleh DO [address] [place] [address] 11/22/2024 1:30 PM EDT Office Visit [facility] [address] [place] [address] Terry Acevedo MD [address] [place] [address] 02/24/2025 11:30 AM EST Office Visit [facility] [address] [place] [address] Terry Acevedo MD [address] [place] [address] 09/08/2025 10:00 AM EDT Office Visit [facility] [address] [place] [address] Major Gallardo DO [address] [place] [address] documented as of this encounter Visit Diagnoses Not on filedocumented in this encounter Additional Health Concerns Assessment Noted Time PHQ-9 Depression Total Score: 17 024 1:17 PM EST documented as of this encounter Care Teams Building Mover Relationship Specialty Start Date End Date Terry Acevedo MD [address] [place] [address] PCP - General Family Medicine 06/11/23 documented as of this encounter
--- OUTSIDE RECORDS SUMMARY | 2024-09-30 10:46 | XMS_ITS | Clinical Summary ---
Author Organization [facility] Address [address] [place] [address] Care Team Providers Care Vp Integrity Name Role Phone Terry Mclaughlin MD Primary Care Provider [phone] Allergies Active Allergy Reactions Criticality Noted Date Comments Bee Venom Anaphylaxis High 08/29/2022 Erythromycin Rash Low 06/18/2022 Sulfa Antibiotics Swelling,Rash Medium 06/18/2022 Sulfamethoxazole-Trimethoprim Rash Low 2022 Medications diazePAM (Valium) 10 MG tablet Take 10 mg by mouth 3 (three) times a day as needed. 06/13/19 23 Active venlafaxine XR (Effexor XR) 150 MG 24 hr capsule Take 150 mg by mouth in the morning and 150 mg before bedtime. Do not crush or chew. . Active amitriptyline (Elavil) 75 MG tablet Take 1 tablet by mouth at bedtime 10/30/19 23 Active EPINEPHrine (Epipen) 0.3 MG/0.3ML injection syringeIndication s:History of allergic reaction INJECT 1 (ONE) pen NEEDED 1 each 3 03/26/19 24 Active sucralfate (Carafate) 1 g tabletIndications :Gastroesophageal reflux disease without esophagitis Take 1 tablet (1 g) by mouth in the morning and 1 tablet (1 g) at noon and 1 tablet (1 g) in the evening and 1 tablet (1 g) before bedtime. Take before meals. 120 tablet 5 03/26/19 24 Active Hibiclens 4 % solution APPLY TO THE AFFECTED AREA(S) topically for a 1 time dose the morning OF surgery 08/17/19 24 Active omeprazole (PriLOSEC) [address] capsuleIndication s:Gastroesophagea l reflux disease without esophagitis TAKE 1 CAPSULE BY MOUTH TWICE DAILY 60 capsule 5 10/12/19 24 Active cyclobenzaprine (Flexeril) 10 MG tabletIndications :Lumbar spondylosis Take 1 tablet (10 mg) by mouth 3 (three) times a day as needed for muscle spasms 60 tablet 2 02/23/19 25 Active meloxicam (Mobic) 15 MG tabletIndications :Bilateral primary osteoarthritis of knee TAKE 1 TABLET BY MOUTH ONCE DAILY 90 tablet 3 03/25/19 25 Active zolpidem (Ambien) 10 MG tabletIndications :Insomnia, unspecified Take 1 tablet (10 mg) by mouth at bedtime 30 tablet 2 05/24/19 25 Active topiramate (Topamax) 100 MG tablet Take 100 mg by mouth in the morning and 100 mg in the evening. 08/09/19 25 Active amitriptyline (Elavil) 50 MG tablet TAKE 1 TABLET BY MOUTH NIGHTLY take with 75 MG tablet 08/31/19 25 Active Rexulti 3 MG tablet Take 1 tablet by mouth in the morning. 08/19/19 25 Active phentermine (Adipex-P) 37.5 MG tabletIndications :Class 2 severe obesity due to excess calories with serious comorbidity and body mass index (BMI) of 37.0 to 37.9 in adult ([facility]) Take 1 tablet (37.5 mg) by mouth in the morning. Take before meals. 30 tablet 09/23/19 25 2024 Active oxybutynin XL (Ditropan-XL) 15 MG 24 hr tabletIndications :Overflow incontinence of urine TAKE 1 TABLET BY MOUTH EVERY DAY; DO NOT CRUSH, CHEW, OR SPLIT 30 tablet 5 09/29/19 25 Active Brexpiprazole (Rexulti) 2 MG tablet Take by mouth. 2024 Discontinued oxybutynin XL (Ditropan-XL) 15 MG 24 hr tabletIndications :Overflow incontinence of urine Take 1 tablet (15 mg) by mouth Daily Do not crush, chew, or split. 30 tablet 5 02/23/19 25 2024 Discontinued phentermine (Adipex-P) 37.5 MG tabletIndications :Class 2 severe obesity due to excess calories with serious comorbidity and body mass index (BMI) of 37.0 to 37.9 in adult ([facility]) Take 1 tablet (37.5 mg) by mouth in the morning. Take before meals. 30 tablet 08/23/19 25 2024 Discontinued(R eorder) HYDROcodone-aceta minophen (Dunn) 5-325 MG tabletIndications :Lumbar spondylosis Take 1 tablet by mouth 4 (four) times a day as needed for moderate pain or severe pain for up to 15 days 60 tablet 08/23/19 25 2024 Active Problems Problem Noted Date Diagnosed Date [...] 02/18/2023 Lumbar spondylosis 02/18/2023 Assessment & Plan (09/22/2024 12:16 PM EDT): Pain worse and use norco PRN. Assessment & Plan (08/22/2024 10:35 AM EDT): [...] 37.9 in adult 02/18/2023 Assessment & Plan (09/22/2024 12:16 PM EDT): Patient doing well with adipex and lost 6 pounds in first month. Tolerating well with only mild dry mouth. Continue with dietary changes and less calories. Need to limit snacking and smaller portions. Continue healthier choices. Need regular aerobic exercise 30 minutes at a time 5-6 days a week. Refill for second month. OARRS reviewed. Continue meds as prescribed. If develop new or worsening symptoms contact office. Assessment & Plan (08/22/2024 10:34 AM EDT): [...] of right knee 08/29/2022 Assessment & Plan (09/22/2024 12:16 PM EDT): Continued pain and problems standing. Follow with ortho. Assessment & Plan (08/22/2024 10:35 AM EDT): [...] of right knee 08/29/2022 Assessment & Plan (09/22/2024 12:16 PM EDT): Continued pain and follow with ortho. Assessment & Plan (11/19/2023 11:59 AM EDT): [...] Encounters Date Type Department Care Team Description 09/28/2024 Refill [facility] [address] [place] [address] Terry Mclaughlin MD Overflow incontinence of urine 09/23/2024 Telephone [facility] [address] [place] [address] Jr. Enrique Saleh, unable to complete mri 09/22/2024 11:15 AM EDT Office Visit [facility] [address] [place] [address] Terry Mclaughlin MD Lumbar spondylosis (Primary Dx); Primary osteoarthritis of right knee; Postoperative pain of right knee; Class 2 severe obesity due to excess calories with serious comorbidity and body mass index (BMI) of 37.0 to 37.9 in adult ([facility]) 09/22/2024 Bamboo flowsheet [facility] [address] [place] [address] Terry Mclaughlin MD 09/19/2024 External Result Encounter [facility] [address] [place] [address] Jr. Enrique Saleh DO 09/06/2024 10:15 AM EDT Office Visit [facility] [address] [place] [address] Jr. Enrique Saleh DO Right ankle pain, unspecified chronicity; Tendonitis of ankle, right; History of right knee joint replacement; Acute pain of right knee 09/06/2024 Travel 09/05/2024 1:30 PM EDT Office Visit [facility] [address] [place] [address] Paty Guadarrama DO Encounter for gynecological examination without abnormal finding (Primary Dx); Encounter for Papanicolaou smear of cervix; Breast cancer screening by mammogram; Osteopenia, unspecified location; Screening for osteoporosis; Asymptomatic menopausal state 09/05/2024 Travel 08/22/2024 9:30 AM EDT Office Visit [facility] [address] [place] [address] Terry Mclaughlin MD Lumbar spondylosis (Primary Dx); Primary osteoarthritis of right knee; Acute right ankle pain; Primary insomnia; Seasonal allergic rhinitis due to pollen; Class 2 severe obesity due to excess calories with serious comorbidity and body mass index (BMI) of 37.0 to 37.9 in adult ([facility]) 08/22/2024 Results Follow-Up [facility] [address] [place] [address] Terry Mclaughlin MD XR ankle 2 views right 08/22/2024 Results Follow-Up [facility] [address] [place] [address] Terry Mclaughlin MD ALL URIC ACID 08/22/2024 Clinisync Result Encounter [facility] External Department Unsolicited Terry Mclaughlin MD 08/22/2024 Clinisync Result Encounter [facility] External Department Unsolicited Terry Mclaughlin MD 08/22/2024 Bamboo flowsheet [facility] [address] [place] [phone] Terry Mclaughlin MD 08/11/2024 Telephone [facility] [address] [place] [address] Terry Mclaughlin MD Med Refill 08/04/2024 Telephone [facility] [address] [place] [address] Terry Mclaughlin MD from Last 3 Months Immunizations Immunization Administration [...] Mass Index 36.11 09/22/2024 11:30 AM EDT Plan of Treatment Upcoming Encounters Date Type Department Care Team (Late st Contact Info) Description 10/04/2024 9:30 AM EDT Office Visit [facility] [place] [address] Jr. Enrique Saleh, DO [address] [facility] [address] [place] [address] 11/22/2024 1:30 PM EDT Office Visit [facility] [address] [place] [address] Terry Mclaughlin MD [address] [place] [address] 02/24/2025 11:30 AM EST Office Visit [facility] [address] [place] [address] Terry Mclaughlin MD [address] [place] [address] 09/08/2025 10:00 AM EDT Office Visit [facility] [address] [place] [phone] Paty Guadarrama DO [address] [place] [address] Health Maintenance Due Date Last Done Comments CT Colonography 1960 Colonoscopy 1960 FIT 1960 FOBT 1960 Sigmoidoscopy 1960 Mammogram 09/06/2024 09/07/2023, 06/16/2022 Influenza Vaccine (#1) 2024 12/27/2018 Pap Smear 08/31/2026 09/01/2023, 03/03/2023, 08/16 Colorectal Cancer Screening 09/01/2026 FIT-DNA 09/01/2026 09/02/2023 Cervical Cancer Screening 09/05/2029 HPV/Cotest 09/05/2029 09/05/2024, 08/29/2022 Procedures Procedure Name Priority Date/Time Associated Diagnosis Comments NM BONE AND OR JOINT 3 PHASE [id number] 09/19/2024 1:51 PM EDT IGP, APT HPV,RFX 16/18,45 Routine 09/05/2024 12:00 AM EDT Encounter for Papanicolaou smear of cervix XR ANKLE 2 VIEWS RIGHT 08/22/2024 12:06 PM EDT ALL URIC ACID Routine 08/22/2024 11:05 AM EDT MM TOMOSYNTHESIS SCREENING BI 09/07/2023 1:04 PM EDT LAB COLOGUARD COLON CANCER SCREEN Routine 09/02/2023 11:15 AM EDT Colon cancer screening THINPREP TIS PAP AND HPV MRNA E6/E7 WITH REFLEX TO HPV 16,18/45 Routine 09/01/2023 12:00 AM EDT Encounter for Papanicolaou smear of cervix from Last 3 Months or Most Recently Relevant to Health Maintenance Results * NM BONE AND OR JOINT 3 PHASE [id number] (09/19/2024 1:51 PM EDT) Anatomical Region Laterality Modality Radiographic Pratibha ging 09/19/2024 1:51 PM EDT Narrative 09/19/2024 1:50 PM EDT THIS EXAM WAS PERFORMED AT [facility] HISTORY: A 63-year-old female with a history [...] - 09/19/2024 THIS EXAM WAS PERFORMED AT [facility] HISTORY: A 63-year-old female with a history [...] Vikram Mcfadden MD on 09/19/2024 1:50 PM Jr. Enrique Saleh DO IMG XR PROCEDURES Final Result * IGP, APT HPV,RFX 16/18,45 (09/05/2024 12:00 AM EDT) Diagnosis: Comment [facility] Comment:NEGATIVE FOR INTRAEP ITHELIAL LESION OR MALIGNANCY. Specimen Adequacy: Comment [facility] Comment: Satisfactory for evaluation. Endocervical and/or squamous metaplastic cells (endocervical component) are present. Clinician Provided ICD10: Comment [facility] Comment:Z12.4 Performed By: Comment [facility] Comment:Al Schwartz, Paperhanger Assistant ([facility]) Cyto Comments . [facility] Note: Comment [facility] Comment: The Pap smear is a screening test designed to aid in the detection of premalignant and malignant conditions of the uterine cervix. It is not a diagnostic procedure and should not be used as the sole means of detecting cervical cancer. Both false-positive and false-negative reports do occur. Test Methodology: Comment [facility] Comment: This liquid based ThinPrep(R) pap test was screened with the use of an image guided system. HPV Aptima Negative Negative [facility] Comment: This nucleic acid amplification test detects fourteen high-risk HPV types (16,18,31,33,35,39,45,51,52,56,58,59,66,68) without differentiation. Swab 09/05/2024 09/06/2024 Narrative [facility] - 09/07/2024 1:07 PM EDT Performed at: - [address] [id number] [place] Filler: Lianna Carrera MD, Phone: [phone] Performed at: 02 - [address] [id number] [place] Filler: Lianna Carrera MD, Phone: [phone] Specimen Comment: No. of containers..01 ThinPrep Vial Paty Guadarrama DO LAB BLOOD ORDERABLES Final R esult [facility] * XR ankle 2 views right (08/22/2024 12:06 PM EDT) Anatomical Region Laterality Modality Lower Extremities, Ankle Right Radiogr aphic Imaging 08/22/2024 12:0 6 PM EDT Narrative 08/22/2024 12:09 PM EDT [facility] [place] [id number] XRay Report Signed Patient: PHUONG CRUZ MR#: [id number] : 1960 Acct:[id number] Age/Sex: 63 / F ADM Date: 08/22/24 Loc: LAB Attending Dr: Terry Mclaughlin M.D. Ordering Physician: Terry Mclaughlin M.D. Date of Service: 08/22/24 Procedure(s): XR ankle RT 2V Accession Number(s): [id number] cc: Terry Mclaughlin M.D. [facility] [place] [address] Patient Name: PHUONG CRUZ MRN: [id number] date: 1960 Sex: F Assigned Patient Location: LAB Current Patient Location: LAB Accession/Order Number: [id number] Exam Date: 08/22/2024 12:04 Report Date: 08/22/2024 12:06 At the request of: TERRY MCLAUGHLIN MD Procedure: XR ankle RT 2V RIGHT ANKLE - 2 views CLINICAL DATA: Right ankle pain for the past 5 days. No injury. COMPARISON: None AP and lateral views were obtained. There is osteopenia. There is no acute fracture or dislocation. The talar dome is intact. Minimal degenerative change is seen at the malleoli. There is a plantar calcaneal spur as well as ossicles and calculation within the plantar aponeurosis. No significant soft tissue swelling is noted. XR/XR ankle RT 2V IMPRESSION: OSTEOPENIA AND DEGENERATIVE CHANGES. NO ACUTE BONY FINDINGS. Impression dictated by: Adriana Robledo M.D. 08/22/2024 12:06 PM Dictation Location: [place] [address] Electronically authenticated by: [id number] Y Date: 08/22/2024 12:06 Dictated By: Adriaan Robledo M.D. Signed By: 08/22/24 1209 DD/ 1206 TD/TT: Recreation Establishment Manager: Procedure Note Radiology, Radiologist, - 08/22/2024 [place] [address] XRay Report Signed Patient: PHUONG CRUZ AMR#: [id number] : 1960Acct:[id number] Age/Sex: 63 / FADM Date: 08/22/24 Loc: LAB Attending Dr: Terry Mclaughlin M.D. Ordering Physician: Terry Mclaughlin M.D. Date of Service: 08/22/24 Procedure(s): XR ankle RT 2V Accession Number(s): [id number] cc: Terry Mclaughlin M.D. [place] [address] Patient Name: PHUONG CRUZ MRN: [id number] date: 1960 Sex: F Assigned Patient Location: LAB Current Patient Location: LAB Accession/Order Number: [id number] Exam Date: 08/22/2024 12:04 Report Date: 08/22/2024 12:06 At the request of: TERRY MCLAUGHLIN MD Procedure: XR ankle RT 2V RIGHT ANKLE - 2 views CLINICAL DATA: Right ankle pain for the past 5 days. No injury. COMPARISON: None AP and lateral views were obtained. There is osteopenia. There is noacute fracture or dislocation. The talar dome is intact. Minimal degenerative change is seen at the malleoli. There is a plantar calcaneal spur as wellas ossicles and calculation within the plantar aponeurosis. No significantsoft tissue swelling is noted. XR/XR ankle RT 2V IMPRESSION: OSTEOPENIA AND DEGENERATIVE CHANGES. NO ACUTE BONY FINDINGS. Impression dictated by: Adriana Robledo M.D. 08/22/2024 12:06 PM Dictation Location: [place] [address] Electronically authenticated by: [id number] Y Date: 2:06 Dictated By: Adriana Robledo M.D. Signed By:08/22/24 1209 DD/ 1206 TD/TT: Recreation Establishment Manager: Terry Mclaughlin MD IMG XR PROCEDURES Final Result * ALL URIC ACID (08/22/2024 11:05 AM EDT) URIC ACID 5.7 2.6 - 6.0 mg/dL [facility] 08/22/2024 11:0 5 AM EDT 08/22/2024 11:10 AM EDT Narrative AJ - 08/22/2024 11:41 AM EDT Terry Mclaughlin MD CLINHERO Final Result CLIN[facility]O [facility] * MM TOMOSYNTHESIS SCREENING BI (09/07/2023 1:04 PM EDT) Anatomical Region Laterality Modality Other 09/07/2023 1:04 PM EDT Narrative 09/07/2023 1:05 [place] [address] Mammography Report Signed Patient: PHUONG CRUZ MR#: [id number] : 1960 Acct:[id number] Age/Sex: 62 / F ADM Date: 09/07/23 Loc: MAMMO Attending Dr: PATY GUADARRAMA Ordering Physician: PATY GUADARRAMA Results: Date of Service: 09/07/23 Follow Up: Procedure(s): MM tomosynthesis screening BI Accession Number(s): [id number] cc: PATY GUADARRAMA ; Terry Mclaughlin M.D. Patient Name: PHUONG CRUZ MR#: [id number] : 1960 Exam Date: 09/07/2023 Ordering Doctor: DR PATY GUADARRAMA RADIOLOGY REPORT PROCEDURE: MM TOMOSYNTHESIS SCREENING BI COMPARISON: MG MAMM SCREEN 3D JAYCE CAD, 06/16/2022. INDICATIONS: Screening Calculator Name NCI Breast Cancer Risk Assessment Tool 5 Year Breast Cancer Risk Not Reported. Lifetime Breast Cancer Risk Not Reported. Personal Breast Cancer No Personal Ovarian Cancer No Treatments None Family Cancers None LOCATION: [facility] BREAST COMPOSITION: There are scattered areas of [...] Signed By: 09/07/23 1305 DD/ 1304 TD/TT: Recreation Establishment Manager: Procedure Note Radiology, Radiologist, MD - 09/07/2023 [place] [address] Mammography Report Signed Patient: PHUONG CRUZ AMR#: [id number] : 1960Acct:[id number] Age/Sex: 62 / FADM Date: 09/07/23 Loc: MAMMO Attending Dr: PATY GUADARRAMA Ordering Physician: PATY GUADARRAMAResults: Date of Service: 09/07/23Follow Up: Procedure(s): MM tomosynthesis screening BI Accession Number(s): [id number] cc: PATY GUADARRAMA ; Terry Mclaughlin M.D. Patient Name: PHUONG CRUZ MR#: [id number] : 1960 Exam Date: 09/07/2023 Ordering Doctor: DR PATY GUADARRAMA RADIOLOGY REPORT PROCEDURE: MM TOMOSYNTHESIS SCREENING BI COMPARISON: MG MAMM SCREEN 3D JAYCE CAD, 06/16/2022. INDICATIONS: Screening Calculator Name NCI Breast Cancer Risk Assessment Tool 5 Year Breast Cancer Risk Not Reported. Lifetime Breast Cancer Risk Not Reported. Personal Breast Cancer No Personal Ovarian Cancer No Treatments None Family Cancers None LOCATION: [facility] BREAST COMPOSITION: There are scattered areas of [...] M.D. Signed By:09/07/23 1305 DD/ 1304 TD/TT: Recreation Establishment Manager: Paty Guadarrama DO [facility] Final Resu lt * Cologuard?? colon cancer screening (09/02/2023 11:15 AM EDT) NONINV COLON CA DNA+OCC BLD SCRN STL-IMP Negative Negative 09/12/2023 5:38 PM EDT [facility] (CLIA #:[id number]) Comment: NEGATIVE TEST RESULT. A negative Cologuard [...] Lam et al, N Engl J Med 2014;370(14):5127-9225) The normal value (reference range) for this assay is negative. COLOGUARD RE-SCREENING RECOMMENDATION: Periodic colorectal cancer screening is an important part of preventive healthcare for asymptomatic individuals at average risk for colorectal cancer. Following a negative Cologuard result, the [place] [employer] and U.S. Multi-Society Task Force screening guidelines recommend a Cologuard re-screening interval of 3 years. References: [place] [employer] Guideline for Colorectal Cancer Screening: https://www.cancer.org/cancer/zxhdl-bigdbh-yrqzeu/uprludokb-eztpdouix-henzbuj/ac s-rec ommendations.html.; Ren DK, Naeem HANCOCK, Sai GALVAN, Colorectal Cancer Screening: Recommendations for Physicians and Patients from the U.S. Multi-Society Task Force on Colorectal Cancer Screening , Am J Gastroenterology 2017; 112:9341-8675. TEST DESCRIPTION: Composite algorithmic analysis of stool [...] Napoles. et al, N Engl J Med 2014;370(14):0519-0872.) Cologuard may produce a false negative or false positive result (no colorectal cancer or precancerous polyp present at colonoscopy follow up). A negative Cologuard test result does not guarantee the absence of CRC or advanced adenoma (pre-cancer). The current Cologuard screening interval is every 3 years. ([place] [employer] and U.S. Multi-Society Task Force). Cologuard performance data in a 10,000 patient pivotal study using colonoscopy as the reference method can be accessed at the following location: www.hoccer.BigDeal/results. Additional description of the Cologuard test process, warnings and precautions can be found at www.DidatuanogThirstyVIPrd.com. Stool specimen (specimen) 09/02/2023 11:15 AM EDT 09/04/2023 12:11 PM EDT Trery Mclaughlin MD LAB MOLECULAR DIAGNOSTICS ORDERA ANTWANS Final Result [facility] (CLIA #:[id number]) [place] [address], * (ABNORMAL) THINPREP TIS PAP AND HPV [...] has been evaluated with computer assisted technology. PUBLIC SERVICE REPRESENTATIVE [facility] Comment: LLT, CT(ASCP) CT screening location: [facility], [address] [place] [address]. PATHOLOGIST [facility] Comment: Justice Keller MD, PhD, M.B.A. Board Certified in Anatomic and Clinical Pathology Board Certified in Cytopathology (electronic signature) For questions regarding this report call Anatomic Pathology at [phone] (ALWAYS MESSAGE) [facility] Comment: EXPLANATORY NOTE: The [...] Detected (A) Not Detected [facility] Comment: Methodology: Clothing Worker-Mediated Amplification This assay detects E6/E7 viral messenger RNA (mRNA) from 14 high-risk HPV types (16,18,31,33,35,39,45,51,52,56,58,59,66,68). Cervical sources are required for HPV testing. If a vaginal source from a patient who has had a total hysterectomy with removal of cervix was submitted, please contact the testing laboratory for alternative testing options. For additional information, please refer to http://education.ITYZ.BigDeal/faq/IDQ769m3 (This link if provided for information/ educational purposes only.) Swab (Endocervix) 09/01/2023 024 4:35 AM EDT Narrative Resulting Agency Comment Performing Organization Information Site ID: [id number] Name: [facility] Address: [address] [place] [address], [address] [place] [id number] Director: Rikki Astorga MD Site ID: [id number] Name: [facility] Address: [address] [place] [address] [place] [address] Director: Justice Keller MD,PHD,RL Paty Guadarrama DO LAB CYTOLOGY ORDERABLES Binta garry Result [facility] from Last 3 Months or Most Recently Relevant to Health Maintenance Insurance [address] [place] [address] [facility] Care Teams Vp Integrity Relationship Specialty Start Date End Date Terry Mclaughlin MD [address] [place] [address] PCP - General Family Medicine 06/11/23
--- OUTSIDE RECORDS SUMMARY | 2024-09-30 10:46 | XMS_ITS | Encounter Summary ---
Author Organization [facility] Address [id number] [place] [address] Care Team Providers Care Service Order Expediter Name Role Phone Unavailable Primary Care Provider Unavailabl e Encounter Details Date Type Department Care Team (Latest Contact Info) Description 09/23/2024 Travel Social History Tobacco Use Types Packs/Day [...]
--- OUTSIDE RECORDS SUMMARY | 2024-09-30 10:46 | XMS_ITS | Encounter Summary ---
Author Organization [employer] [facility] [employer] Address [id number] [place] [address] Care Team Providers Care Egg Worker Name Role Phone Unavailable Primary Care Provider Unavailabl e Encounter Details Date Type Department Care Team (Latest Contact Info) Description 09/19/2024 Travel Social History Tobacco Use Types Packs/Day [...]
--- OUTSIDE RECORDS SUMMARY | 2024-09-30 10:51 | XMS_ITS | CCD ---
Author Organization [facility] Inform ion Partnership [facility] Care Team Providers Care Hris Specialist Name Role Phone ARNOLDO, DR TERRY Hines Admitting Unavailable NADERER, DR TERRY Hines Attending Unavailable NADERER, DR TERRY Hines Consulting Unavailable NADERER, DR TERRY Hines Primary Care Unavailable KARASIK ., DR SALINAS Attending Unavailabl e NADERER, DR TERRY Hines Primary Care Unavailable KARASIK ., DR SALINAS Consulting Unavailabl e KARASIK ., DR SALINAS Admitting Unavailabl e ZIEBER, DR BRAD Barnes Consulting Unavailable KARASIK ., DR SALINAS [...] Care Unavailable KARASIK ., DR SALINAS Admitting UnavailTerry Leung MD Primary Care Provider [phone] Terry Mclaughlin MD Primary Care Provider Terry Mclaughlin MD Unavailable Luciano Reyes MD Attending Provider Terry Mclaughlin MD Primary Care Provider [phone] Luciano Reyes Attending Unavailable Terry Mclaughlin Primary Care Unavailable Luciano Reyes Admitting Unavailable Luciano Reyes Attending Unavailable Terry Mclaughlin Primary Care Unavailable Luciano Reyes Admitting Unavailable STEPANIC, JR., SONJA Ivory Attending Unavaila ble STEPANIC, JR., SONJA Ivory Attending Unavaila ble NADERETERRY Barnes Attending Unavailable MAJOR GALLARDO Attending Unavailable STEPANIC, JR., SONJA Ivory Attending Unavaila ble NADERETERRY Barnes Attending Unavailable UNA MAYNARD Attending Unavailable STEPANIC, JR., SONJA Ivory Referring Unavaila ble BRINKUNA Attending Unavailable STEPANIC, JR., SONJA Ivory Referring Unavaila ble KELBLEYZABRINA Attending Unavailable STEPANIC, JR., SONJA Ivory Referring Unavaila ble BERNAL, KENY Guevara Attending Unavailable KENY BERNAL Referring Unavailable KELBLEYZABRINA Attending Unavailable STEPANIC, JR., SONJA Ivory Referring Unavaila ble BERNAL, KENY Guevara Attending Unavailable UNA MAYNARD Attending Unavailable STEPANIC, JR., SONJA Ivory Referring Unavaila ble BRINKUNA Attending Unavailable STEPANIC, JR., SONJA Ivory Referring Unavaila ble STEPANIC, JR., SONJA Ivory Attending Unavaila ble NADERETERRY Barnes Attending Unavailable STEPANIC, JR., SONJA Ivory Attending Unavaila ble BRUNA LEÓN Attending Unavailable STEPANIC, JR., SONJA Ivory Referring Unavaila ble BRINKUNA Attending Unavailable STEPANIC, JR., SONJA Ivory Referring Unavaila ble TABATHA ONOFRE Attending Unavailable STEPANIC, JR., SONJA Ivory Referring Unavaila ble BRINKUNA Attending Unavailable STEPANIC, JR., SONJA Ivory Referring Unavaila ble BRINKUNA Attending Unavailable STEPANIC, JR., SONJA Ivory Referring Unavaila ble TABATHA ONOFRE Attending Unavailable STEPANIC, JR., SONJA Ivory Referring Unavaila ble STEPANIC, JR., SONJA Ivory Attending Unavaila ble STEPANIC, JR., SONJA Ivory Referring Unavaila ble STEPANIC, JR., SONJA Ivory Attending Unavaila ble STEPANIC, JR., SONJA Ivory Attending Unavaila ble TERRY MCLAUGHLIN Attending Unavailable LORRIE, JUAN MIGUEL Attending Unavailable HENRIETTA HAMILTON Attending Unavailable LORRIE, JUAN MIGUEL Attending Unavailable LORRIE, JUAN MIGUEL Attending Unavailable LORRIE, JUAN MIGUEL Attending Unavailable LORRIE, JUAN MIGUEL Attending Unavailable HENRIETTA HAMILTON Attending Unavailable LORRIE, JUAN MIGUEL Attending Unavailable LORRIE, JUAN MIGUEL Attending Unavailable LARON WATTS Referring Unavailable HENRIETTA HAMILTON Attending Unavailable LORRIE, JUAN MIGUEL Attending Unavailable LORRIE, JUAN MIGUEL Attending Unavailable LORRIE, JUAN MIGUEL Attending Unavailable HENRIETTA HAMILTON Attending Unavailable LORRIE, JUAN MIGUEL Attending Unavailable LORRIE, JUAN MIGUEL Attending Unavailable HENRIETTA HAMILTON Attending Unavailable LORRIE, JUAN MIGUEL Attending Unavailable LORRIE, JUAN MIGUEL Attending Unavailable LORRIE, JUAN MIGUEL Attending Unavailable LORRIE, JUAN MIGUEL Attending Unavailable HENRIETTA HAMILTON Attending Unavailable HENRIETTA HAMILTON Referring Unavailable LORRIE, JUAN MIGUEL Attending Unavailable SONJA SALEH JR Attending Unavailabl e STEPESTEFANI RICHMOND, SONJA Ivory Referring Unavailabl e STEPANIC , SONJA Ivory Attending Unavailabl e STEPANIC , SONJA Ivory Referring Unavailabl e STEPESTEFANI RICHMOND, SONJA Ivory Attending Unavailabl e DELFINO RICHMOND, SONJA Ivoyr Referring Unavailabl Chase Peacock Attending Unavailable Chase Hogan Referring Unavailable Allergies Allergy Classification Reported Allergen(s) Allergy Type Date of Onset Reaction(s) Facility (1 source) bee venom Drug allergy (disorder) 04-03-19 14 [facility] (7 sources) Erythromycin Drug Allergy 04-03-19 14 rash [facility]ository (1 source) Sulfonamides (Antibiotic) Drug allergy (disorder) 04-03-19 14 [facility] (20 sources) Erythromycin; Translations: [ERYTHROMYCIN] Drug Allergy 06-19-19 23 Rash [facility] (20 sources) Honey bee venom Allergy to substance 08-30-19 23 Anaphylaxis [facility] (20 sources) Sulfamethoxazole / Trimethoprim Drug Allergy 07-17-19 23 Rash [facility] (20 sources) Sulfonamides (Antibiotic) Drug Allergy 06-19-19 23 Swelling, Rash [facility] (7 sources) Sulfamethoxazole; Translations: [sulfamethoxazole] Drug Allergy 04-13-19 [facility] (9 sources) Sulfonamides (Antibiotic); Translations: [Sulfa (Sulfonamide Antibiotics)] Allergy to substance 06-19-19 [facility] (7 sources) Trimethoprim; Translations: [trimethoprim] Drug Allergy 04-13-19 [facility] (7 sources) venom-honey bee; Translations: [venom-honey bee] Allergy to substance 04-13-19 [facility] (1 source) Erythromycin Drug Allergy 05-24-19 [facility] Repository Medications Current Medications Medication Drug Class(es) Dates Sig (Normalized) Sig (Original) acetaminophen 325 mg / oxyCODONE hydrochloride 5 mg oral tablet (8 sources) Opioid Agonist Start: 04-27-2024 End: 05-04-2024 take 1 tablet by mouth four times daily as needed for pain oxyCODONE-acetami nophen (Percocet) 5-325 MG tablet Indications: S/P TKR (total knee replacement), right Take 1 tablet by mouth 4 (four) times a day as needed for severe pain for up to 7 days 28 tablet 04/27/2024 05/04/2024 Active Start: 01-18-2024 End: 01-25-2024 take 1 tablet by mouth four times daily as needed for pain oxyCODONE-acetaminophen (Percocet) 5-325 MG tablet Indications: S/P TKR (total knee replacement), right Take 1 tablet by mouth 4 (four) times a day as needed for severe pain for up to 7 days 28 tablet 01/18/2024 01/25/2024 Active Start: 10-12-2023 End: 10-19-2023 take 1 tablet by mouth every six hours for pain oxyCODONE-acetaminophen (Percocet) 5-325 MG tablet Indications: S/P TKR (total knee replacement), right Take 1 tablet by mouth every 6 (six) hours if needed for severe pain for up to 7 days 28 tablet 10/12/2023 10/19/2023 Active Start: 09-21-2023 End: 10-07-2023 take 1 tablet by mouth every six hours for pain oxyCODONE-acetaminophen (Percocet) 5-325 MG tablet Indications: S/P TKR (total knee replacement), right Take 1 tablet by mouth every 6 (six) hours if needed for severe pain for up to 7 days 28 tablet 09/30/2023 10/07/2023 Active amitriptyline hydrochloride 50 mg oral tablet (20 sources) Tricyclic Antidepressant Start: 08-30-2024 take 1 tablet by mouth once daily amitriptyline (Elavil) 50 MG tablet TAKE 1 TABLET BY MOUTH NIGHTLY take with 75 MG tablet 08/30/2024 Active Start: 10-29-2022 take 1 tablet by bijan th at bedtime amitriptyline (Elavil) 75 MG tablet Take 1 tablet by mouth at bedtime 10/29/2022 Active brexpiprazole 3 mg oral tablet (20 sources) Atypical Antipsychotic Start: 08-18-2024 take 1 tablet by mouth in the morning Rexulti 3 MG tablet Take 1 tablet by mouth in the morning. 08/18/2024 Active Start: 04-13-2024 End: 09-05-2024 take 1 tablet by mouth once daily Brexpiprazole (Rexulti) 2 mg tablet Active 3 MG PO Daily April 13, 2024 1:00am calcium polycarbophil 625 mg oral tablet (20 sources) Start: 09-25-2023 End: 08-22-2024 take 2 tablets by mouth in the morning Fiber-Lax 625 MG tablet Indications: Chronic constipation TAKE 2 TABLETS BY MOUTH IN THE MORNING 60 tablet 5 09/25/2023 08/22/2024 Discontinued Start: 03-16-2023 take 2 tablets by mo uth in the morning polycarbophil (FiberCon) 625 MG tablet Indications: Chronic constipation Take 2 tablets (1,250 mg) by mouth in the morning. 60 tablet 5 03/16/2023 Active chlorhexidine gluconate 40 mg/ml medicated liquid soap (20 sources) Start: 08-17-2023 Hibiclens 4 % solution APPLY TO THE AFFECTED AREA(S) topically for a 1 time dose the morning OF surgery 08/17/2023 Active ciprofloxacin 500 mg oral tablet (2 sources) Quinolone Antimicrobial Start: 08-11-2024 End: 08-22-2024 take 1 tablet by mouth in the morning ciprofloxacin (Cipro) 500 MG tablet Indications: Urinary tract infection without hematuria, site unspecified Take 1 tablet (500 mg) by mouth in the morning and 1 tablet (500 mg) before bedtime. Do all this for 7 days. 14 tablet 08/11/2024 08/22/2024 Discontinued cyclobenzaprine hydrochloride 10 mg oral tablet (20 sources) Muscle Relaxant Start: 02-24-2024 take 1 tablet by mouth three times daily as needed for muscle spasms cyclobenzaprine (Flexeril) 10 MG tablet Indications: Lumbar spondylosis Take 1 tablet (10 mg) by mouth 3 (three) times a day as needed for muscle spasms 60 tablet 2 02/24/2024 Active End: 02-24-2024 cyclobenzaprine (Flexeril) 5 MG tablet 3 (three) times a day as needed. 02/24/2024 Discontinued (Reorder) diazePAM 10 mg oral tablet (20 sources) Benzodiazepine Start: 06-12-2022 take 1 tablet by mouth three times daily as needed diazePAM (Valium) 10 MG tablet Take 10 mg by mouth 3 (three) times a day as needed. 06/12/2022 Active [id number] 0.3 ml EPINEPHrine 1 mg/ml auto-injector (20 sources) alpha-Adrenergic Agonist, beta-Adrenergic Agonist, Catecholamine Start: 04-13-2024 Epinephrine (Epipen) 0.3 mg/0.3 mL auto-injector Active 0.3 MG IM every 5 to 15 minutes as needed for anaphylaxis April 13, 2024 1:00am do not exceed 3 doses per episode Start: 02-17-2022 End: 03-26-2023 EPINEPHrine (Epipen) 0.3 MG/ 0.3ML injection syringe Indications: History of allergic reaction [...] 03/16/2023 Active meloxicam 15 mg oral tablet (20 sources) Nonsteroidal Anti-inflammatory Drug Start: 03-25-2024 take 1 tablet by mouth once daily meloxicam (Mobic) 15 MG tablet Indications: Bilateral primary osteoarthritis of knee TAKE 1 TABLET BY MOUTH ONCE DAILY 90 tablet 3 03/25/2024 Active Start: 04-03-2023 take 1 tablet by bijan th once daily meloxicam (Mobic) 15 MG tablet Indications: Bilateral primary osteoarthritis of knee TAKE 1 TABLET BY MOUTH ONCE DAILY 90 tablet 3 04/03/2023 Active take 1 tablet by bijan th in the morning meloxicam (Mobic) 15 MG tablet Take 15 mg by mouth in the morning. 0 Active methylPREDNISolone (20 sources) Corticosteroid Start: 03-30-2024 End: 08-22-2024 methylPREDNISolone (Medrol Dospak) 4 MG tablets Indications: Pain and swelling of right knee Follow schedule on package instructions 21 tablet 03/30/2024 08/22/2024 Discontinued (Med list cleanup) Start: 03-30-2024 methylPREDNISo lone (Medrol Dospak) 4 MG tablets Indications: Pain and swelling of right knee Follow schedule on package instructions 21 tablet 03/30/2024 Active Start: 03-02-2024 End: 08-22-2024 methylPREDNISolone (Medrol D ospak) 4 MG tablets Indications: Acute pain of right knee Follow schedule on package instructions 21 tablet 03/02/2024 08/22/2024 Discontinued Start: 03-02-2024 methylPREDNISo lone (Medrol Dospak) 4 MG tablets Indications: Acute pain of right knee Follow schedule on package instructions 21 tablet 03/02/2024 Active Start: 01-06-2024 End: 02-24-2024 methylPREDNISolone (Medrol D ospak) 4 MG tablets Indications: Acute pain of right knee Follow schedule on package instructions 21 tablet 01/06/2024 02/24/2024 Discontinued Start: 01-06-2024 methylPREDNISo lone (Medrol Dospak) 4 MG tablets Indications: Acute pain of right knee Follow schedule on package instructions 21 tablet 01/06/2024 Active Start: 10-14-2023 End: 12-21-2023 methylPREDNISolone (Medrol D ospak) 4 MG tablets Indications: Acute pain of right knee Follow schedule on package instructions 21 tablet 10/14/2023 12/21/2023 Discontinued (Therapy completed) Start: 10-14-2023 methylPREDNISo lone (Medrol Dospak) 4 MG tablets Indications: Acute pain of right knee Follow schedule on package instructions 21 tablet 10/14/2023 Active omeprazole 40 mg delayed release oral capsule (20 sources) Proton Pump Inhibitor Start: 10-12-2023 take 1 capsule by mouth twice daily omeprazole (PriLOSEC) [address] capsule Indications: Gastroesophageal reflux disease without esophagitis TAKE 1 CAPSULE BY MOUTH TWICE DAILY 60 capsule 5 10/12/2023 Active take 1 capsule by mouth in the m orning omeprazole (PriLOSEC) [address] capsule Take 40 mg by mouth in the morning and 40 mg before bedtime. Active 24 hr oxybutynin chloride 15 mg extended release oral tablet (20 sources) Cholinergic Muscarinic Antagonist Start: 01-08-2025 take 1 tablet by mouth once daily oxybutynin XL (Ditropan-XL) 15 MG 24 hr tablet Indications: Overflow incontinence of urine Take 1 tablet (15 mg) by mouth Daily Do not crush, chew, or split. 30 tablet 5 02/24/2024 Active Start: 11-19-2023 End: 02-24-2024 take 1 tablet by mouth once daily oxybutynin XL (Ditropan XL) 10 MG 24 hr tablet Indications: Overflow incontinence of urine Take 1 tablet (10 mg) by mouth Daily Do not crush, chew, or split. 30 tablet 3 11/19/2023 02/24/2024 Discontinued (Reorder) phentermine hydrochloride 37.5 mg oral tablet (13 sources) Sympathomimetic Amine Anorectic Start: 08-22-2024 End: 10-22-2024 take 37-37.9 tablets by mouth before mealtime phentermine (Adipex-P) 37.5 MG tablet Indications: Class 2 severe obesity due to excess calories with serious comorbidity and body mass index (BMI) of 37.0 to 37.9 in adult ([facility]) Take 1 tablet (37.5 mg) by mouth in the morning. Take before meals. 30 tablet 09/22/2024 10/22/2024 Active predniSONE 50 mg oral tablet (4 sources) Start: 08-22-2024 End: 08-28-2024 take 1 tablet by mouth once daily predniSONE (Deltasone) 50 MG tablet Indications: Acute right ankle pain Take 1 tablet (50 mg) by mouth Daily for 6 days 6 tablet 08/22/2024 08/28/2024 Active 0.25 mg, 0.5 mg dose 1.5 ml semaglutide 1.34 mg/ml pen injector (1 source) Start: 02-18-2023 semaglutide (Ozempic, 0.25 or 0.5 MG/DOSE,) 2 MG/1.5ML solution pen-injector Indications: Metabolic syndrome 0.25 mg SC weekly x 4 weeks, then 0.5 mg weekly 4 each 3 02/18/2023 Active sucralfate 1000 mg oral tablet (20 sources) Aluminum Complex Start: 04-13-2024 take 1 tablet by mouth once before mealtime as needed Sucralfate 1 gram tablet Active 1 GM PO 3x/Day before meals & bedtime as needed for as directed April 13, 2024 1:00am Start: 12-13-2021 End: 03-26-2023 take 1 tablet by mouth at bedtime sucralfate (Carafate) 1 g tablet Indications: Gastroesophageal reflux disease without esophagitis Take 1 tablet (1 g) by mouth in the morning and 1 tablet (1 g) at noon and 1 tablet (1 g) in the evening and 1 tablet (1 g) before bedtime. Take before meals. 120 tablet 5 03/26/2023 Active topiramate 100 mg oral tablet (20 sources) Start: 08-08-2024 take 1 tablet by mouth in the morning topiramate (Topamax) 100 MG tablet Take 100 mg by mouth in the morning and 100 mg in the evening. 08/08/2024 Active Start: 06-01-2024 take 1 tablet by bijan th once daily at bedtime Topiramate (Topamax) 50 mg tablet Active 50 MG PO Daily at bedtime June 01, 2024 12:00am Start: 06-01-2024 Topamax Active PO Daily June 01, 2024 12:00am Start: 04-13-2024 End: 04-13-2024 take 1 tablet by mouth twice daily Topiramate 100 mg tablet Discontinued 100 MG PO Twice daily April 13, 2024 1:00am April 13, 2024 2:18pm Start: 08-19-2023 End: 04-06-2024 topiramate (Topamax) 100 MG tablet 2 (two) times a day 08/19/2023 04/06/2024 Discontinued (Other) Start: 02-19-2023 take 1 tablet by bijan th in the morning topiramate (Topamax) 25 MG tablet Take 25 mg by mouth in the morning and 25 mg in the evening. 0 02/19/2023 Active 24 hr venlafaxine 150 mg extended release oral capsule (20 sources) Serotonin and Norepinephrine Reuptake Inhibitor Start: 04-13-2024 take 1 capsule by mouth once daily Venlafaxine (Effexor Xr) 150 mg capsule,extended release 24hr Active 150 MG PO Daily April 13, 2024 1:00am take 1 capsule by mo [facility] every twenty-four hours in the morning venlafaxine XR (Effexor XR) 150 MG 24 hr capsule Take 150 mg by mouth in the morning and 150 mg before bedtime. Do not crush or chew. . Active zolpidem tartrate 10 mg oral tablet (20 sources) gamma-Aminobutyric Acid-ergic Agonist Start: 08-12-2023 End: 05-23-2024 take 1 tablet by mouth at bedtime zolpidem (Ambien) 10 MG tablet Indications: Insomnia, unspecified Take 1 tablet (10 mg) by mouth at bedtime 30 tablet 2 05/23/2024 Active Start: 02-02-2023 take 1 tablet by bijan th at bedtime zolpidem (Ambien) 10 MG tablet Indications: Insomnia, unspecified TAKE 1 TABLET BY MOUTH AT BEDTIME 30 tablet 2 02/02/2023 Active Completed/Discontinued Medications Medication Drug Class(es) Dates Sig (Normalized) Sig (Original) acetaminophen 325 mg / HYDROcodone bitartrate 5 mg oral tablet (20 sources) Opioid Agonist Start: 08-22-2024 End: 09-06-2024 take 1 tablet by mouth four times daily as needed for pain HYDROcodone-acetam inophen ([place]) 5-325 MG tablet Indications: Lumbar spondylosis Take 1 tablet by mouth 4 (four) times a day as needed for moderate pain or severe pain for up to 15 days 60 tablet 08/22/2024 09/06/2024 Start: 05-31-2024 End: 06-15-2024 take 1 tablet by mouth four times daily as needed for pain HYDROcodone-acetaminophen ([place]) 5-325 MG tablet Indications: Lumbar spondylosis Take 1 tablet by mouth 4 (four) times a day as needed for moderate pain or severe pain for up to 15 days 60 tablet 05/31/2024 06/15/2024 Active Start: 04-13-2024 take 1 tablet by bijan th twice daily as needed for pain Hydrocodone-Acetaminophen 5-325 mg table t Active 1 TAB PO Twice daily as needed for pain April 13, 2024 1:00am Start: 04-13-2024 Hydrocodone-Ac etaminophen 5-325 mg tablet Active TAB PO April 13, 2024 12:00am Start: 02-24-2024 End: 03-10-2024 take 1 tablet by mouth four times daily as needed for pain HYDROcodone-acetaminophen ([place]) 5-325 MG tablet Indications: Lumbar spondylosis Take 1 tablet by mouth 4 (four) times a day as needed for moderate pain or severe pain for up to 15 days 60 tablet 02/24/2024 03/10/2024 Active Start: 02-08-2024 End: 02-15-2024 take 1 tablet by mouth four times daily as needed for pain HYDROcodone-acetaminophen ([place]) 5-325 MG tablet Indications: Primary osteoarthritis of left knee Take 1 tablet by mouth 4 (four) times a day as needed for moderate pain or severe pain for up to 7 days 28 tablet 02/08/2024 02/15/2024 Active Start: 12-15-2023 End: 12-22-2023 take 1 tablet by mouth four times daily as needed for pain HYDROcodone-acetaminophen ([place]) 5-325 MG tablet Indications: Primary osteoarthritis of left knee Take 1 tablet by mouth 4 (four) times a day as needed for moderate pain or severe pain for up to 7 days 28 tablet 12/15/2023 12/22/2023 Start: 10-28-2023 End: 11-04-2023 take 1 tablet by mouth four times daily as needed for pain HYDROcodone-acetaminophen ([place]) 5-325 MG tablet Indications: Primary osteoarthritis of left knee Take 1 tablet by mouth 4 (four) times a day as needed for moderate pain or severe pain for up to 7 days 28 tablet 10/28/2023 11/04/2023 Active Start: 06-24-2022 take 1 tablet by bijan four times daily as needed HYDROcodone-acetaminophen ([place]) 5-325 MG tablet Take 1 tablet by mouth 4 (four) times a day as needed. 0 06/24/2022 Active PARoxetine hydrochloride 20 mg oral tablet (20 sources) Serotonin Reuptake Inhibitor Start: 04-13-2024 End: 08-22-2024 take 1 tablet by mouth once daily Paroxetine Hcl 20 mg tablet Discontinued 20 MG PO Daily April 13, 2024 1:00am June 01, 2024 8:32am Problems Active Problems Problem Classification Problem Date Documented Date Episodic/Chronic Allergic reactions (1 source) History of immune disorder; Translations: [Allergy status to unspecified drugs, medicaments and biological substances status] 03-26-2023 Episodic Anxiety disorders (20 sources) Generalized anxiety disorder; Translations: [Generalized anxiety disorder] Onset: 12-31-2021 08-29-2022 Chronic Disorders of lipid metabolism (20 sources) Hyperlipidemia; Translations: [Hyperlipidemia, unspecified] Onset: 02-18-2023 02-18-2023 Chronic Esophageal disorders (20 sources) Gastroesophageal reflux disease without esophagitis; Translations: [Gastro-esophageal reflux disease without esophagitis] Onset: 02-18-2023 03-26-2023 Chronic Genitourinary symptoms and ill-defined conditions (20 sources) Female stress incontinence; Translations: [Stress incontinence (female) (male)] Onset: 02-18-2023 02-18-2023 Chronic Immunizations and screening for infectious disease (5 sources) Encounter for screening for human papillomavirus (HPV); Translations: [Encounter for screening for infections with a predominantly sexual mode of transmission] Onset: 07-09-2021 Episodic Miscellaneous mental health disorders (20 sources) Primary insomnia; Translations: [Primary insomnia] Onset: 02-18-2023 02-18-2023 Chronic Mood disorders (20 sources) Recurrent major depressive episodes, moderate ; Translations: [Major depressive disorder, recurrent, moderate] Onset: 12-31-2021 Resolved: 09-05-2022 02-18-2023 Chronic Osteoarthritis (20 sources) Arthritis of hand; Translations: [Primary osteoarthritis, unspecified hand] Onset: 08-29-2022 08-29-2022 Chronic Other bone disease and musculoskeletal deformities (1 source) Other specified disorders of bone density and structure, left thigh; Translations: [OTH D/O BONE DEN STRUCT LT THIGH] Onset: 06-19-2022 Episodic Other connective tissue disease (20 sources) History of total knee arthroplasty; Translations: [Presence of unspecified artificial knee joint] Onset: 08-29-2022 08-29-2022 Chronic Other connective tissue disease (20 sources) Artificial knee joint present; Translations: [Presence of left artificial knee joint] Onset: 08-29-2022 08-29-2022 Chronic Other connective tissue disease (1 source) Presence of right artificial knee joint; Translations: [Presence of right artificial knee joint] Onset: 02-19-2024 Chronic Other connective tissue disease (4 sources) Neuralgia; Translations: [Neuralgia and neuritis, unspecified] 04-06-2024 Episodic Other connective tissue disease (2 sources) Myofascial pain; Translations: [Myalgia, other site] 06-20-2024 Episodic Other connective tissue disease (3 sources) Myalgia, other site; Translations: [Myalgia and myositis, unspecified] 06-20-2024 Episodic Other connective tissue disease (4 sources) Tendonitis of right ankle; Translations: [Other enthesopathy of right foot and ankle] 09-06-2024 Episodic Other connective tissue disease (1 source) Other enthesopathy of right foot and ankle; Translations: [Other enthesopathy of right foot and ankle] Onset: 09-23-2024 Episodic Other nervous system disorders (20 sources) Polyneuropathy; Translations: [Polyneuropathy, unspecified] Onset: 02-18-2023 02-18-2023 Chronic Other nervous system disorders (6 sources) Chronic pain; Translations: [Other chronic pain] 04-13-2024 Chronic Other nervous system disorders (13 sources) Other chronic pain; Translations: [Other chronic pain] Onset: 05-11-2024 04-13-2024 Chronic Other non-traumatic joint disorders (17 sources) Pain in unspecified knee; Translations: [Pain in joint, lower leg] Onset: 08-29-2022 08-29-2022 Episodic Other non-traumatic joint disorders (13 sources) Acute ankle pain; Translations: [Pain in right ankle and joints of right foot] Onset: 08-22-2024 08-22-2024 Episodic Other non-traumatic joint disorders (2 sources) Ankle pain; Translations: [Pain in right ankle and joints of right foot] 09-06-2024 Episodic Other nutritional; endocrine; and metabolic disorders (20 sources) Body mass index 30+ - obesity; Translations: [Obesity, unspecified] Onset: 02-18-2023 02-18-2023 Chronic Other nutritional; endocrine; and metabolic disorders (20 sources) Metabolic syndrome X; Translations: [Metabolic syndrome] Onset: 02-18-2023 02-18-2023 Chronic Other nutritional; endocrine; and metabolic disorders (20 sources) Severe obesity; Translations: [Class 2 severe obesity due to excess calories with serious comorbidity and body mass index (BMI) of 36.0 to 36.9 in adult ([facility])] Onset: 02-18-2023 02-24-2024 Chronic Other screening for suspected conditions (not mental disorders or infectious disease) (15 sources) Encounter for screening mammogram for malignant neoplasm of breast; Translations: [Encounter for screening for malignant neoplasm of cervix] Onset: 03-11-2022 Episodic Other upper respiratory disease (20 sources) Allergic rhinitis due to pollen; Translations: [Allergic rhinitis due to pollen] Onset: 02-18-2023 02-18-2023 Chronic Residual codes; unclassified (1 source) Asymptomatic menopausal state; Translations: [ASYMPTOMATIC MENOPAUSAL STATE] Onset: 06-19-2022 Episodic Residual codes; unclassified (4 sources) Insomnia; Translations: [Insomnia, unspecified] 11-03-2023 Episodic Residual codes; unclassified (1 source) Menopause present; Translations: [Asymptomatic menopausal state] 09-05-2024 Episodic Residual codes; unclassified (1 source) Pain, unspecified; Translations: [Pain, unspecified] Onset: 09-19-2024 Episodic Spondylosis; intervertebral disc disorders; other back problems (20 sources) Lumbar spondylosis; Translations: [Spondylosis without myelopathy or radiculopathy, lumbar region] Onset: 02-18-2023 02-18-2023 Chronic Unclassified (4 sources) Acute pain of right knee 04-06-2024 Past or Other Problems Problem Classification Problem Date Documented Da te Episodic/Chronic Conditions associated with dizziness or vertigo (20 sources) Lightheadedness; Translations: [Dizziness and giddiness] Onset: 11-19-2023 11-19-2023 Episodic Malaise and fatigue (20 sources) Fatigue; Translations: [Other fatigue] Onset: 11-19-2023 11-19-2023 Episodic Mood disorders (20 sources) Mood disorders Onset: 02-18-2023 02-18-2023 Other acquired deformities (20 sources) Deyanira legged; Translations: [Varus deformity, not elsewhere classified, right knee] Onset: 08-29-2022 08-29-2022 Episodic Other aftercare (20 sources) Long-term current use of drug therapy; 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] Onset: 11-19-2023 11-19-2023 Episodic Other bone disease and musculoskeletal deformities (20 sources) Osteopenia; Translations: [Other specified disorders of bone density and structure, left thigh] Onset: 02-24-2024 02-24-2024 Episodic Other connective tissue disease (20 sources) Pain of left hand; Translations: [Pain in left hand] Onset: 08-29-2022 08-29-2022 Episodic Other gastrointestinal disorders (20 sources) Chronic constipation; Translations: [Other constipation] Onset: 03-16-2023 03-26-2023 Episodic Other nervous system disorders (20 sources) Other acute postprocedural pain; Translations: [Other acute postoperative pain] Onset: 08-29-2022 09-09-2023 Episodic Other non-traumatic joint disorders (3 sources) Pain in right knee; Translations: [Pain in joint, lower leg] Onset: 02-19-2024 12-21-2023 Episodic Other skin disorders (20 sources) Hyperhidrosis; Translations: [Generalized hyperhidrosis] Onset: 02-18-2023 02-18-2023 Episodic Residual codes; unclassified (20 sources) Edema of lower extremity; Translations: [Localized edema] Onset: 02-18-2023 02-18-2023 Episodic Urinary tract infections (20 sources) Acute cystitis; Translations: [Acute cystitis without hematuria] Onset: 08-29-2022 Resolved: 11-19-2023 08-29-2022 Episodic Viral infection (20 sources) Condyloma acuminatum of the anogenital region; Translations: [Anogenital (venereal) warts] Onset: 08-29-2022 08-29-2022 Episodic Results Test Name Value Interpretation Reference Range Facility XR SINUS 1 OR 2 VWSon 2024 XR SINUS 1 OR 2 VWS XR SINUS 1 OR 2 VWS Exam: Sinus 2 view. HISTORY: Pre-MRI screening for metal. IMPRESSION: 1. I see no evidence of a radiopaque foreign body. There is postoperative change involving the sinuses with metallic clips. This is a known finding. Finalized by Sung Mobley MD on 09/23/2024 2:14 PM Normal [facility] NM BONE SCAN THREE PHASEon 0 09-19-2024 NM BONE SCAN THREE PHASE NM BONE SCAN THREE PHASE HISTORY: A 63-year-old female with a history [...] Vikram Mcfadden MD on 09/19/2024 1:50 PM Normal [facility] ALL URIC ACIDon 08-22-2024 Urate [Mass/Vol] 5.7 mg/dL 2.6 - 6.0 mg/dL [facility] XR Ankle - right 2 Viewson 0 08-22-[address] [address] XRay Report Signed Patient: PHUONG RANDHAWA MR#: [id number] : 1960 Acct:[id number] Age/Sex: 63 / F ADM Date: 08/22/24 Loc: LAB Attending Dr: Terry Mclaughlin M.D. Ordering Physician: Terry Mclaughlin M.D. Date of Service: 08/22/24 Procedure(s): XR ankle RT 2V Accession Number(s): [id number] cc: Terry Mclaughlin M.D. [address] [place] [id number] Patient Name: PHUONG RANDHAWA MRN: [facility]:[id number] date: 1960 Sex: F Assigned Patient Location: LAB Current Patient Location: LAB Accession/Order Number: [id number] Exam Date: 08/22/2024 12:04 Report Date: 08/22/2024 [...] Robledo M.D. 08/22/2024 12:06 PM Dictation Location: [place] [address] Electronically authenticated by: [id number] Y Date: 08/22/2024 12:06 Dictated By: Adriana Robledo M.D. Signed By: 08/22/24 1209 DD/ 1206 TD/TT: Fur Trimmer: [facility] Radiology, Radiologist, - 08/22/2024 [place] [address] XRay Report Signed Patient: PHUONG RANDHAWA MR#: [id number] : 1960 Acct:[id number] Age/Sex: 63 / F ADM Date: 08/22/24 Loc: LAB Attending Dr: Terry Mclaughlin M.D. Ordering Physician: Terry Mclaughlin M.D. Date of Service: 08/22/24 Procedure(s): XR ankle RT 2V Accession Number(s): [id number] cc: Terry Mclaughlin M.D. The [place] [address] Patient Name: PHUONG RANDHAWA MRN: [id number] date: 1960 Sex: F Assigned Patient Location: LAB Current Patient Location: LAB Accession/Order Number: [id number] Exam Date: 08/22/2024 12:04 Report Date: 08/22/2024 [...] Robledo M.D. 08/22/2024 12:06 PM Dictation Location: [place] [address] Electronically authenticated by: [id number] Y Date: 08/22/2024 12:06 Dictated By: Adriana Robledo M.D. Signed By: 08/22/24 1209 DD/ 1206 TD/TT: Fur Trimmer: [facility] [email or web address] Radiology Study observation (narrative) [facility] XR Ankle - right 2 ViewsOrde red By: Radiologist Radiology on 08-22-2024 [facility] [employer] Work Phone: CT KNEE RT WO CONTon 025 CT KNEE RT WO CONT CT KNEE RT WO CONT Noncontrast CT [...] Justice Sylvester MD on 02/22/2024 12:46 PM Normal [facility] XR Knee - right 3 [facility] Result: AP and lateral of right knee showed surgical position and alignment of prosthetic components without evidence of loosening or wear to the femoral, tibial, or patellar components. The alignment appeared to be anatomic. There was no evidence of accelerated or asymmetric wear to the patellar button or tibial tray. There was no evidence of fracture and/or dislocation. Small old avulsion of the superior pole of patella. Impression: Unremarkable right total knee arthroplasty. [facility] [employer] Radiology Study observation (narrative) [facility] ALL CBC WITH AUTO DIFFon BASOPHILS ABSOLUTE AUTO 0.1 [facility] Basophils/100 WBC (Bld) 0.8 % 0.2 - 2.0 % [facility] Eosinophils/100 WBC (Bld) 2.5 % 0.9 - 7.0 % [facility] Erythrocyte distribution width (RBC) [Ratio] 14.2 % 11.0 - 15.0 % [facility] Hematocrit (Bld) [Volume fraction] 40.3 % 36.0 - 48.0 % [facility] ([facility] [Mass/Vol] 12.9 g/dL 12.0 - 16.0 g/dL [facility] IMMATURE GRANULOCYTES ABS AUTO 0.06 High [facility] Immature granulocytes/100 WBC (Bld) 0.9 % High 0.0 - 0.5 % [facility] Interpretation and review of laboratory results Abnormal [facility] LYMPHOCYTES ABSOLUTE AUTO 1.1 Low [facility] Lymphocytes/100 WBC (Bld) 17.7 % Low 20.5 - 60.0 % [facility] MCH (RBC) [Entitic mass] 28.4 pg 26.7 - 34.0 pg [facility] MCHC (RBC) [Mass/Vol] 32.0 g/dL 29.9 - 35.2 g/dL [facility] MCV (RBC) [Entitic vol] 88.6 fL 81.0 - 99.0 fL [facility] MONOCYTES ABSOLUTE AUTO 0.5 [facility] Monocytes/100 WBC (Bld) 7.7 % 1.7 - 12.0 % [facility] NEUTROPHILS ABSOLUTE AUTO 4.5 [facility] Neutrophils/100 WBC (Bld) 70.4 % 43.0 - 75.0 % [facility] Platelet mean volume (Bld) [Entitic vol] 10.1 fL 9.5 - 13.5 fL [facility] are [facility] EO # 0.2 [facility] PLT 255 [facility] RBC 4.55 [facility] TB WBC 6.4 [facility] ALL CBC WITH AUTO DIFFon BASOPHILS ABSOLUTE AUTO 0.1 [facility] Basophils/100 WBC (Bld) 0.8 % 0.2 - 2.0 % [facility] Eosinophils/100 WBC (Bld) 3.0 % 0.9 - 7.0 % [facility] Erythrocyte distribution width (RBC) [Ratio] 14.1 % 11.0 - 15.0 % [facility] Hematocrit (Bld) [Volume fraction] 40.0 % 36.0 - 48.0 % [facility] Hem[facility] (Bld) [Mass/Vol] 12.4 g/dL 12.0 - 16.0 g/dL [facility] IMMATURE GRANULOCYTES ABS AUTO 0.05 High [facility] Immature granulocytes/100 WBC (Bld) 0.8 % High 0.0 - 0.5 % [facility] Interpretation and review of laboratory results Abnormal [facility] LYMPHOCYTES ABSOLUTE AUTO 1.4 [facility] Lymphocytes/100 WBC (Bld) 22.9 % 20.5 - 60.0 % [facility] MCH (RBC) [Entitic mass] 27.9 pg 26.7 - 34.0 pg [facility] MCHC (RBC) [Mass/Vol] 31.0 g/dL 29.9 - 35.2 g/dL [facility] MCV (RBC) [Entitic vol] 89.9 fL 81.0 - 99.0 fL [facility] MONOCYTES ABSOLUTE AUTO 0.4 [facility] Monocytes/100 WBC (Bld) 6.8 % 1.7 - 12.0 % [facility] NEUTROPHILS ABSOLUTE AUTO 3.9 [facility] Neutrophils/100 WBC (Bld) 65.7 % 43.0 - 75.0 % [facility] Platelet mean volume (Bld) [Entitic vol] 10.0 fL 9.5 - 13.5 fL [facility] EO # 0.2 [facility] PLT 246 [facility] RBC 4.45 [facility] WBC 6.0 [facility] PAP ACOG PANEL 2: 30 to 65on 06-18-2022 . . Normal [facility] Comment on above: Result Comment: Perf ormed at: WB Performed By: #### [id number] #### [facility] [address] [place] [address] [address] Laurita Hooker Age Gdln ACOG Testing 30-65 Normal [facility] Comment on above: Performed By: #### [id number] #### [facility] [address] [address] [address] Laurita Hooker DIAGNOSIS: Comment Abnormal [facility] Comment on above: Result Comment: EPIT HELIAL CELL ABNORMALITY. LOW GRADE SQUAMOUS INTRAEPITHELIAL LESION (LSIL). Performed at: WB Performed By: #### [id number] #### [facility] [address] [address] [address] Laurita Hooker Electronically signed by: Comment Normal [facility] Comment on above: Result Comment: Leeann Carrera MD, Pathologist Performed at: WB Performed By: #### [id number] #### [facility] [address] [address] [address] Laurita Hooker HPV Aptima Positive Abnormal Negative [facility] Comment on above: Result Comment: This nucleic acid amplification test detects fourteen high-risk HPV types (16,18,31,33,35,39,45,51,52,56,58,59,66,68) without differentiation. Performed at: =G Performed By: #### [id number] #### [facility] [address] [place] [address] [address] Laurita Hooker HPV Genotype Reflex Comment Normal [facility] Comment on above: Result Comment: Crit eria not met, HPV Genotype not performed. Performed at: WB Performed By: #### [id number] #### [facility] [address] [place] [address] Dr. Laurita Hooker Methodology: Comment Normal [facility] Comment on above: Result Comment: This liquid based ThinPrep(R) pap test was screened with the use of an image guided system. Performed at: WB Performed By: #### [id number] #### [facility] [address] [place] [address] Dr. Laurita Hooker Note: Comment Normal [facility] Comment on above: Result Comment: The Pap smear is a screening test designed to aid in the detection of premalignant and malignant conditions of the uterine cervix. It is not a diagnostic procedure and should not be used as the sole means of detecting cervical cancer. Both false-positive and false-negative reports do occur. . Performed at: WB Performed By: #### [id number] #### [facility] [address] [place] [address] Dr. Laurita Hooker Pathologist Provided ICD10 Comment Normal [facility] Comment on above: Result Comment: R87. [id number] Performed at: WB Performed By: #### 4 [id number] #### [facility] [address] [place] [address] Dr. Laurita Hooker Performed by: Comment Normal [facility] Comment on above: Result Comment: Ashley Pena, Production Control Expediter (ASCP) Performed at: WB Performed By: #### [id number] #### [facility] [address] [place] [address] Dr. Laurita Hooker Recommendation: Comment Abnormal [facility] Comment on above: Result Comment: Sugg est follow up as clinically appropriate. Performed at: WB Performed By: #### [id number] #### [facility] [address] [place] [address] Dr. Laurita Hooker Specimen adequacy: Comment Normal [facility] Comment on above: Result Comment: Sati sfactory for evaluation. Endocervical and/or squamous metaplastic cells (endocervical component) are present. Performed at: WB Performed By: #### 4 [id number] #### [facility] [address] [place] [address] [address] Laurita Hooker MG MAMM SCREEN 3D JAYCE CADon 06-16-2022 MG MAMM SCREEN 3D JAYCE CAD Patient: PHUONG RANDHAWA Exam Date: 06/16/2022 : 1960 Gender:F Ordering : DR BRAD CALERO . Admission #: [id number] Family : Order #: [id number] CLICK HERE TO VIEW EXAM RADIOLOGY REPORT [...] Treatments None Family Cancers None LOCATION: [facility] BREAST COMPOSITION: Scattered areas fibroglandular density. [...] PALPABLE LUMP SHOULD BE BIOPSIED. Dictated by: Brad Redd M.D. on 06/16/2022 at 14:18 Approved by: Brad Redd M.D. on 06/16/2022 at 14:21 Normal [facility] XR DEXA BONE DENSITYon 06-16 XR [...] - Moderate Fracture Risk Electronically authenticated by: BRAD REBECCA Date: 2022-06-16 15:27 Normal [facility] PAP ACOG PANEL 2: 30 to 65on 03-19-2022 . . Normal [facility] Comment on above: Result Comment: Perf ormed at: WB Performed By: #### [id number] #### [facility] [address] [place] [address] [address] Laurita Hooker Age Gdln ACOG Testing 30-65 Normal [facility] Comment on above: Performed By: #### [id number] #### [facility] [address] [place] [address] [address] Laurita Hooker DIAGNOSIS: Comment Abnormal [facility] Comment on above: Result Comment: EPIT HELIAL CELL ABNORMALITY. LOW-GRADE SQUAMOUS INTRAEPITHELIAL LESION (LSIL); (ENCOMPASSING HUMAN PAPILLOMAVIRUS /MILD DYSPLASIA/CIN1). Performed at: WB Performed By: #### [id number] #### [facility] [address] [place] [address] [address] Laurita Hooker Electronically signed by: Comment Normal [facility] Comment on above: Result Comment: Allie Nowak MD, Pathologist Performed at: WB Performed By: #### 4 [id number] #### [facility] [address] [place] [address] [address] Laurita Hooker HPV Aptima Positive Abnormal Negative [facility] Comment on above: Result Comment: This nucleic acid amplification test detects fourteen high-risk HPV types (16,18,31,33,35,39,45,51,52,56,58,59,66,68) without differentiation. Performed at: =G Performed By: #### 4 [id number] #### [facility] [address] [place] [address] [address] Laurita Hooker HPV Genotype Reflex Comment Normal [facility] Comment on above: Result Comment: Crit eria not met, HPV Genotype not performed. Performed at: WB Performed By: #### 4 [id number] #### [facility] [address] [place] [address] [address] Laurita Hooker Methodology: Comment Normal [facility] Comment on above: Result Comment: This liquid based ThinPrep(R) pap test was screened with the use of an image guided system. Performed at: WB Performed By: #### 4 [id number] #### [facility] [address] [place] [address] [address] Laurita Hooker Note: Comment Normal [facility] Comment on above: Result Comment: The Pap smear is a screening test designed to aid in the detection of premalignant and malignant conditions of the uterine cervix. It is not a diagnostic procedure and should not be used as the sole means of detecting cervical cancer. Both false-positive and false-negative reports do occur. . Performed at: WB Performed By: #### 4 [id number] #### [facility] [address] [place] [address] [address] Laurita Hooker Pathologist Provided ICD10 Comment [facility] Comment on above: Result Comment: R87. [id number] Performed at: WB Performed By: #### [id number] #### [facility] [address] [place] [address] Dr. Laurita Hooker Performed by: Comment Normal [facility] Comment on above: Result Comment: Kamran Krishnamurthy, Production Control Expediter (ASCP) Performed at: [facility] Performed By: #### 4 [id number] #### [facility] [address] [place] [address] Dr. Laurita Hooker Recommendation: Comment Abnormal [facility] Comment on above: Result Comment: Sugg est follow up as clinically appropriate. Performed at: WB Performed By: #### 4 [id number] #### [facility] [address] [place] [address] Dr. Laurita Hooker Specimen adequacy: Comment Normal [facility] Comment on above: Result Comment: Sati sfactory for evaluation. Endocervical and/or squamous metaplastic cells (endocervical component) are present. Performed at: WB Performed By: #### 4 [id number] #### [facility] [address] [place] [address] Dr. Laurita Hooker PAP ACOG PANEL 2: 30 to 65on 09-17-2021 . . Normal [facility] Comment on above: Result Comment: Perf ormed at: WB Performed By: #### 4 [id number] #### [facility] [address] [place] [address] [address] Laurita Hooker Age Gdln ACOG Testing 30-65 Normal [facility] Comment on above: Performed By: #### [id number] #### [facility] [address] [place] [address] Dr. Laurita Hooker DIAGNOSIS: Comment Normal [facility] Comment on above: Result Comment: NEGA TIVE FOR INTRAEPITHELIAL LESION OR MALIGNANCY. Performed at: WB Performed By: #### [id number] #### [facility] [address] [place] [address] [address] Laurita Hooker HPV Aptima Positive Abnormal Negative [facility] Comment on above: Result Comment: This nucleic acid amplification test detects fourteen high-risk HPV types (16,18,31,33,35,39,45,51,52,56,58,59,66,68) without differentiation. Performed at: =G Performed By: #### 4 [id number] #### [facility] [address] [place] [address] Dr. Laurita Hooker HPV Genotype 16 Positive Abnormal Negative [facility] Comment on above: Result Comment: Perf ormed at: =G Performed By: #### 4 [id number] #### [facility] [address] [place] [address] Dr. Laurita Hooker HPV Genotype 18,45 Negative Normal Negative [facility] Comment on above: Result Comment: Perf ormed at: =G Performed By: #### 4 [id number] #### [facility] [address] [place] [address] Dr. Laurita Hooker Methodology: Comment Normal [facility] Comment on above: Result Comment: This liquid based ThinPrep(R) pap test was screened with the use of an image guided system. Performed at: WB Performed By: #### 4 [id number] #### [facility] [address] [place] [address] Dr. Laurita Hooker Note: Comment Normal [facility] Comment on above: Result Comment: The Pap smear is a screening test designed to aid in the detection of premalignant and malignant conditions of the uterine cervix. It is not a diagnostic procedure and should not be used as the sole means of detecting cervical cancer. Both false-positive and false-negative reports do occur. . Performed at: WB Performed By: #### 4 [id number] #### [facility] [address] [place] [address] [address] Laurita Hooker Performed by: Comment Normal [facility] Comment on above: Result Comment: Mar Plunkett Production Control Expediter (ASCP) Performed at: WB Performed By: #### [id number] #### [facility] [address] [place] [address] [address] Laurita Hooker Specimen adequacy: Comment Normal [facility] Comment on above: Result Comment: Sati sfactory for evaluation. Endocervical and/or squamous metaplastic cells (endocervical component) are present. Performed at: WB Performed By: #### 4 [id number] #### [facility] [address] [place] [address] Dr. Laurita Hooker HEPATITIS PANEL, [facility] HBsAg Screen Negative Normal Negative [facility] Comment on above: Performed By: #### H EPACUT #### [facility] [address] [place] [address] Dr. Laurita Hooker HCV AB <0.1 Normal 0.0-0.9 [facility] Comment on above: Performed By: #### H EPACUT #### [facility] [address] [place] [address] Dr. Laurita Hooker Hep A Ab, IgM Negative Normal Negative [facility] Comment on above: Performed By: #### H EPACUT #### [facility] [address] [place] [address] Dr. Laurita Hooker Hep B Core Ab, IgM Negative Normal Negative [facility] Comment on above: Performed By: #### H EPACUT #### [facility] [address] [place] [address] Dr. Laurita Hooker Interpretation: Comment Normal [facility] Comment on above: Result Comment: Nega tive Not infected with HCV, unless recent infection is suspected or other evidence exists to indicate HCV infection. Performed By: #### H EPACUT #### [facility] [address] [place] [address] Dr. Laurita Hooker Vital Signs Date Time Vital Sign Value Performing Clinician Facility 09-22-2024 11:30-0400 Body height 165.1 cm Terry Mclaughlin MD Work Phone: [facility] 09-22-2024 11:30-0400 Body mass index (BMI) [Ratio] 36.11 kg/m2 Terry Mclaughlin MD Work Phone: [facility] 09-22-2024 11:30-0400 Body temperature 96.01 [degF] Terry Mclaughlin MD Work Phone: [facility] 09-22-2024 11:30-0400 Body weight 98.43 kg Terry Mclaughlin MD Work Phone: [facility] 09-22-2024 11:30-0400 Diastolic blood pressure 78 mm[Hg] Terry Mclaughlin MD Work Phone: [facility] 09-22-2024 11:30-0400 Heart rate 105 /min Terry Mclaughlin MD Work Phone: [facility] 09-22-2024 11:30-0400 Respiratory rate 20 /min Terry Mclaughlin MD Work Phone: [facility] 09-22-2024 11:30-0400 SaO2% (BldA) [Mass fraction] 96 % Terry Mclaughlin MD Work Phone: [facility] 09-22-2024 11:30-0400 Systolic blood pressure 140 mm[Hg] Terry Mclaughlin MD Work Phone: [facility] 09-05-2024 13:19-0400 Body height 165.1 cm Major Gallardo DO Work Phone: [facility] 09-05-2024 13:19-0400 Body mass index (BMI) [Ratio] 36.44 kg/m2 Major Gallardo DO Work Phone: [facility] 09-05-2024 13:19-0400 Body weight 99.34 kg Major Gallardo DO Work Phone: [facility] 09-05-2024 13:19-0400 Diastolic blood pressure 76 mm[Hg] Major Gallardo DO Work Phone: [facility] 09-05-2024 13:19-0400 Systolic blood pressure 126 mm[Hg] Major Gallardo DO Work Phone: [facility] 08-22-2024 09:46-0400 Body height 165.1 cm Terry Mclaughlin MD Work Phone: [facility] 08-22-2024 09:46-0400 Body mass index (BMI) [Ratio] 37.11 kg/m2 Terry Mclaughlin MD Work Phone: [facility] 08-22-2024 09:46-0400 Body temperature 97.81 [degF] Terry Mclaughlin MD Work Phone: [facility] 08-22-2024 09:46-0400 Body weight 101.15 kg Terry Mclaughlin MD Work Phone: [facility] 08-22-2024 09:46-0400 Diastolic blood pressure 62 mm[Hg] Terry Mclaughlin MD Work Phone: [facility] 08-22-2024 09:46-0400 Heart rate 107 /min Terry Mclaughlin MD Work Phone: [facility] 08-22-2024 09:46-0400 Respiratory rate 20 /min Terry Mclaughlin MD Work Phone: [facility] 08-22-2024 09:46-0400 SaO2% (BldA) [Mass fraction] 95 % Terry Mclaughlin MD Work Phone: [facility] 08-22-2024 09:46-0400 Systolic blood pressure 134 mm[Hg] Terry Mclaughlin MD Work Phone: [facility] 06-30-2024 14:26-0400 Diastolic blood pressure 82 mm[Hg] Terry Mclaughlin MD Work Phone: [facility] 06-30-2024 14:26-0400 Heart rate 94 /min Terry Mclaughlin MD Work Phone: [facility] 06-30-2024 14:26-0400 SaO2% (BldA) [Mass fraction] 95 % Terry Mclaughlin MD Work Phone: [facility] 06-30-2024 14:26-0400 Systolic blood pressure 130 mm[Hg] Terry Mclaughlin MD Work Phone: [facility] 06-20-2024 13:51-0400 Body height 170.18 cm Terry Mclaughlin MD Work Phone: [facility] 06-20-2024 13:51-0400 Body mass index (BMI) [Ratio] 34.7 kg/m2 Terry Mclaughlin MD Work Phone: [facility] 06-20-2024 13:51-0400 Body weight 100.69 kg Terry Mclaughlin MD Work Phone: [facility] 06-20-2024 13:51-0400 Diastolic blood pressure 80 mm[Hg] Terry Mclaughlin MD Work Phone: [facility] 06-20-2024 13:51-0400 Heart rate 93 /min Terry Mclaughlin MD Work Phone: [facility] 06-20-2024 13:51-0400 SaO2% (BldA) [Mass fraction] 96 % Terry Mclaughlin MD Work Phone: [facility] 06-20-2024 13:51-0400 Systolic blood pressure 130 mm[Hg] Trery Mclaughlin MD Work Phone: [facility] 06-01-2024 10:14-0400 Diastolic blood pressure 71 mm[Hg] Terry Mclaughlin MD Work Phone: [facility] 06-01-2024 10:14-0400 Heart rate 79 /min Terry Mclaughlin MD Work Phone: [facility] 06-01-2024 10:14-0400 Respiratory rate 16 /min Terry Mclaughlin MD Work Phone: [facility] 06-01-2024 10:14-0400 SaO2% (BldA) [Mass fraction] 96 % Terry Mclaughlin MD Work Phone: [facility] 06-01-2024 10:14-0400 Systolic blood pressure 111 mm[Hg] Terry Mclaughlin MD Work Phone: [facility] 06-01-2024 09:36-0400 Inhaled oxygen flow rate 4 L/min Terry Mclaughlin MD Work Phone: [facility] 06-01-2024 08:09-0400 Body height 170.18 cm Terry Mclaughlin MD Work Phone: [facility] 06-01-2024 08:09-0400 Body weight 100.69 kg Terry Mclaughlin MD Work Phone: [facility] 05-23-2024 12:26-0400 Diastolic blood pressure 80 mm[Hg] Terry Mclaughlin MD Work Phone: [facility] 05-23-2024 12:26-0400 Heart rate 97 /min Terry Mclaughlin MD Work Phone: [facility] 05-23-2024 12:26-0400 SaO2% (BldA) [Mass fraction] 95 % Terry Mclaughlin MD Work Phone: [facility] 05-23-2024 12:26-0400 Systolic blood pressure 122 mm[Hg] Terry Mclaughlin MD Work Phone: [facility] 05-11-2024 12:30-0400 Diastolic blood pressure 62 mm[Hg] Terry Mclaughlin MD Work Phone: [facility] 05-11-2024 12:30-0400 Heart rate 76 /min Terry Mclaughlin MD Work Phone: [facility] 05-11-2024 12:30-0400 Respiratory rate 16 /min Terry Mclaughlin MD Work Phone: [facility] 05-11-2024 12:30-0400 SaO2% (BldA) [Mass fraction] 97 % Terry Mclaughlin MD Work Phone: [facility] 05-11-2024 12:30-0400 Systolic blood pressure 131 mm[Hg] Terry Mclaughlin MD Work Phone: [facility] 05-11-2024 11:52-0400 Inhaled oxygen flow rate 3 L/min Terry Mclaughlin MD Work Phone: [facility] 05-11-2024 10:33-0400 Body height 170.18 cm Terry Mclaughlin MD Work Phone: [facility] 05-11-2024 10:33-0400 Body weight 100.69 kg Terry Mclaughlin MD Work Phone: [facility] 04-13-2024 13:14-0500 Body weight 100.75 kg [facility] 04-13-2024 13:14-0500 Diastolic blood pressure 70 mm[Hg] [facility] 04-13-2024 13:14-0500 Heart rate 92 /min [facility] 04-13-2024 13:14-0500 SaO2% (BldA) [Mass fraction] 95 % [facility] 04-13-2024 13:14-0500 Systolic blood pressure 130 mm[Hg] [facility] 02-24-2024 13:06-0500 Body mass index (BMI) [Ratio] 36.28 kg/m2 Terry Mclaughlin MD Work Phone: [facility] 02-24-2024 13:06-0500 Body temperature 97 [degF] Terry Mclaughlin MD Work Phone: [facility] 02-24-2024 13:06-0500 Body weight 98.88 kg Terry Mclaughlin MD Work Phone: [facility] 02-24-2024 13:06-0500 Diastolic blood pressure 70 mm[Hg] Terry Mclaughlin MD Work Phone: [facility] 02-24-2024 13:06-0500 Heart rate 94 /min Terry Mclaughlin MD Work Phone: [facility] 02-24-2024 13:06-0500 SaO2% (BldA) [Mass fraction] 97 % Terry Mclaughlin MD Work Phone: [facility] 02-24-2024 13:06-0500 Systolic blood pressure 128 mm[Hg] Terry Mclaughlin MD Work Phone: [facility] 11-19-2023 10:32-0400 Body height 165.1 cm Terry Mclaughlin MD Work Phone: [facility] 11-19-2023 10:32-0400 Body mass index (BMI) [Ratio] 36.61 kg/m2 Terry Mclaughlin MD Work Phone: [facility] 11-19-2023 10:32-0400 Body temperature 97.3 [degF] Terry Mclaughlin MD Work Phone: [facility] 11-19-2023 10:32-0400 Body weight 99.79 kg Terry Mclaughlin MD Work Phone: [facility] 11-19-2023 10:32-0400 Diastolic blood pressure 80 mm[Hg] Terry Mclaughlin MD Work Phone: [facility] 11-19-2023 10:32-0400 Heart rate 99 /min Terry Mclaughlin MD Work Phone: [facility] 11-19-2023 10:32-0400 Respiratory rate 20 /min Terry Mclaughlin MD Work Phone: [facility] 11-19-2023 10:32-0400 SaO2% (BldA) [Mass fraction] 95 % Terry Mclaughlin MD Work Phone: [facility] 11-19-2023 10:32-1350 Systolic blood pressure 152 mm[Hg] Terry Mclaughlin MD Work Phone: [facility] Encounters Encounter Date Encounter Type Care Provider Facility Start: 09-23-2024 End: 09-23-2024 ambulatory [facility] Start: 09-23-2024 Encounter for other specified special examinations [facility] Start: 09-23-2024 End: 09-23-2024 Telephone encounter Jr. Sonja Saleh DO Work Phone: [facility] Comment on above: unable to complete m ri Start: 09-22-2024 End: 09-22-2024 Bamboo flowsheet Terry Mclaughlin MD Work Phone: [facility] Start: 09-22-2024 End: 09-22-2024 [employer] Terry Mclaughlin MD Work Phone: [facility] Start: 09-22-2024 End: 09-23-2024 ambulatory TERRY MCLAUGHLIN Not Available Start: 09-22-2024 End: 09-22-2024 Office outpatient visit 25 minutes Terry Mclaughlin MD Work Phone: [facility] Comment on above: Lumbar spondylosis ( Primary Dx); Primary osteoarthritis of right knee; Postoperative pain of right knee; Class 2 severe obesity due to excess calories with serious comorbidity and body mass index (BMI) of 37.0 to 37.9 in adult ([facility]) Start: 09-19-2024 ambulatory SONJA SALEH JR [facility] Start: 09-19-2024 ambulatory SONJA SALEH JR [facility] Start: 09-07-2024 End: 09-07-2024 ambulatory [facility] Start: 09-06-2024 End: 09-06-2024 ambulatory SONJA VASQUEZ Not Available Start: 09-06-2024 End: 09-06-2024 Office outpatient visit 25 minutes Jr. Sonja Saleh DO Work Phone: [facility] Comment on above: Right ankle pain, un specified chronicity; Tendonitis of ankle, right; History of right knee joint replacement; Acute pain of right knee Start: 09-05-2024 End: 09-05-2024 Patient encounter status Major Gallardo DO Work Phone: [facility] Start: 09-05-2024 End: 09-05-2024 Periodic preventive med est patient 40-64yrs Major Gallardo DO Work Phone: [facility] Comment on above: Encounter for gyneco logical examination without abnormal finding (Primary Dx); Encounter for Papanicolaou smear of cervix; Breast cancer screening by mammogram; Osteopenia, unspecified location; Screening for osteoporosis; Asymptomatic menopausal state Start: 09-05-2024 End: 09-05-2024 ambulatory MAJOR GALLARDO Not Available Start: 08-22-2024 End: 08-22-2024 Bamboo flowsheet Terry Mclaughlin MD Work Phone: [facility] Start: 08-22-2024 End: 08-22-2024 Bamboo flowsheet Terry Mclaughlin MD Work Phone: [facility] Start: 08-22-2024 End: 08-22-2024 Clinisync Result Encounter Terry Mclaughlin MD Work Phone: [facility] External Department Unsolicited Start: 08-22-2024 End: 08-22-2024 Office outpatient visit 25 minutes Terry Mclaughlin MD Work Phone: [facility] Comment on above: Lumbar spondylosis ( Primary Dx); Primary osteoarthritis of right knee; Acute right ankle pain; Primary insomnia; Seasonal allergic rhinitis due to pollen; Class 2 severe obesity due to excess calories with serious comorbidity and body mass index (BMI) of 37.0 to 37.9 in adult ([facility]) Start: 08-22-2024 End: 08-22-2024 ambulatory TERRY MCLAUGHLIN Not Available Start: 08-17-2024 End: 08-17-2024 ambulatory HENRIETTA HAMILTON [facility] Start: 08-10-2024 End: 08-10-2024 ambulatory [facility] Start: 07-20-2024 End: 07-20-2024 ambulatory [facility] Start: 07-01-2024 End: 07-01-2024 ambulatory [facility] Start: 06-30-2024 End: 06-30-2024 ambulatory Terry Mclaughlin MD Work Phone: [facility] Work Phone: Start: 06-30-2024 End: 06-30-2024 Patient encounter procedure Terry Mclaughlin MD Work Phone: [facility] Work Phone: Start: 06-29-2024 End: 06-29-2024 Bamchristian Saleh DO Work Phone: [facility] Start: 06-29-2024 End: 06-29-2024 Isabell Saleh DO Work Phone: [facility] Start: 06-29-2024 End: 06-29-2024 Office outpatient visit 15 minutes Jr. Sonja Saleh DO Work Phone: [facility] Comment on above: Nerve pain (Primary Dx); History of right knee joint replacement Start: 06-29-2024 End: 06-29-2024 ambulatory SONJA VASQUEZ Not Available Start: 06-23-2024 End: 06-23-2024 ambulatory [facility] Start: 06-22-2024 End: 06-22-2024 ambulatory HENRIETTA Guevara [facility] Start: 06-20-2024 End: 06-20-2024 ambulatory Terry Mclaughlin MD Work Phone: [facility] Work Phone: Start: 06-20-2024 End: 06-20-2024 Patient encounter procedure Terry Mclaughlin MD Work Phone: [facility] Work Phone: Start: 06-01-2024 Non-patient / Non-visit Terry cross MD Work Phone: [facility] Work Phone: Start: 06-01-2024 End: 06-01-2024 Admission to same day surgery center Terry Mclaughlin MD Work Phone: [facility] Work Phone: Start: 06-01-2024 End: 06-01-2024 ambulatory Terry Mclaughlin MD Work Phone: [facility] Work Phone: Start: 05-31-2024 End: 05-31-2024 Refill Terry Mclaughlin MD Work Phone: [facility] Comment on above: Lumbar spondylosis Start: 05-30-2024 Non-patient / Non-visit Terry cross MD Work Phone: [facility] Work Phone: Start: 05-30-2024 End: 05-30-2024 ambulatory [facility] Start: 05-23-2024 End: 05-23-2024 Patient encounter procedure Terry Mclaughlin MD Work Phone: [facility] Work Phone: Start: 05-23-2024 End: 05-23-2024 Refill Terry Mclaughlin MD Work Phone: [facility] Comment on above: Insomnia, unspecifie d Start: 05-17-2024 End: 05-17-2024 Refill Terry Mclaughlin MD Work Phone: [facility] Comment on above: Insomnia, unspecifie d Start: 05-17-2024 End: 05-17-2024 ambulatory [facility] Start: 05-11-2024 End: 05-11-2024 Admission to same day surgery center Terry Mclaughlin MD Work Phone: [facility] Work Phone: Start: 05-11-2024 End: 05-11-2024 ambulatory Terry Mclaughlin MD Work Phone: [facility] Work Phone: Start: 04-27-2024 End: 04-27-2024 Refill Terry Mclaughlin MD Work Phone: [facility] Comment on above: S/P TKR (total knee replacement), right Start: 04-22-2024 End: 04-22-2024 ambulatory [facility] Start: 04-19-2024 End: 04-19-2024 ambulatory [facility] Start: 04-13-2024 End: 04-13-2024 ambulatory [facility] Work Phone: Start: 04-13-2024 End: 04-13-2024 Patient encounter procedure [facility] Work Phone: Start: 04-06-2024 End: 04-06-2024 Isabell Saleh DO Work Phone: [facility] Start: 04-06-2024 End: 04-06-2024 Isabell Saleh DO Work Phone: [facility] Start: 04-06-2024 End: 04-06-2024 ambulatory SONJA VASQUEZ Not Available Start: 04-06-2024 End: 04-06-2024 Office outpatient visit 15 minutes Jr. Sonja Saleh DO Work Phone: [facility] Comment on above: Nerve pain (Primary Dx); History of right knee joint replacement; Acute pain of right knee Start: 03-29-2024 End: 03-30-2024 Telephone encounter Keny THACKER Work Phone: [facility] Comment on above: Swelling in RT TKA Start: 03-28-2024 End: 03-28-2024 ambulatory [facility] Start: 03-07-2024 End: 03-07-2024 ambulatory [facility] Start: 03-01-2024 End: 03-02-2024 Telephone encounter Sonja Saleh DO Work Phone: [facility] Comment on above: Pain Start: 02-24-2024 End: 02-24-2024 Bamboo flowsheet Terry Mclaughlin MD Work Phone: [facility] Start: 02-24-2024 End: 02-24-2024 Bamboo flowsheet Terry Mclaughlin MD Work Phone: [facility] Start: 02-24-2024 End: 02-24-2024 ambulatory TERRY MCLAUGHLIN Not Available Start: 02-24-2024 End: 02-24-2024 Patient encounter procedure Terry Mclaughlin MD Work Phone: [facility] Start: 02-24-2024 End: 02-24-2024 Periodic preventive med est patient 40-64yrs Terry Mclaughlin MD Work Phone: [facility] Comment on above: Annual physical exam (Primary Dx); Lumbar spondylosis; Primary osteoarthritis of right knee; MDD (major depressive disorder), recurrent episode, moderate (CMS/HCC); Overflow incontinence of urine; Class 2 severe obesity due to excess calories with serious comorbidity and body mass index (BMI) of 36.0 to 36.9 in adult (CMS/HCC) Start: 02-24-2024 End: 02-24-2024 ambulatory HENRIETTA HAMILTON [facility] Start: 02-19-2024 End: 02-19-2024 ambulatory LARON Willa WATTS [facility] Start: 02-18-2024 End: 02-18-2024 ambulatory [facility] Start: 02-08-2024 End: 02-08-2024 Refill Terry Mclaughlin MD Work Phone: [facility] Comment on above: Primary osteoarthrit is of left knee Start: 02-05-2024 End: 02-05-2024 Refill Terry Mclaughlin MD Work Phone: [facility] Comment on above: Insomnia, unspecifie d Start: 02-02-2024 End: 02-02-2024 Bamboo flowsheet Jr. Sonja Ivory Stepanic DO Work Phone: [facility] Start: 02-02-2024 End: 02-02-2024 Bamboo flowsheet Jr. Sonja Ivory Stepanic DO Work Phone: [facility] Start: 02-02-2024 End: 02-02-2024 Office outpatient visit 15 minutes JrBraydon Ivory Stepanic DO Work Phone: [facility] Comment on above: Acute pain of right knee (Primary Dx) Start: 02-02-2024 End: 02-02-2024 ambulatory JR.SONJA Not Available Start: 01-25-2024 End: 01-25-2024 ambulatory [facility] Start: 01-18-2024 End: 01-18-2024 Refill Terry Mclaughlin MD Work Phone: [facility] Comment on above: S/P TKR (total knee replacement), right Start: 01-06-2024 End: 01-06-2024 Bamboo flowsheet Jr. Sonja Ivory Stepanic DO Work Phone: [facility] Start: 01-06-2024 End: 01-06-2024 Bamboo flowsheet Jr. Sonja Ivory Stepanic DO Work Phone: [facility] Start: 01-06-2024 End: 01-06-2024 Office outpatient visit 25 minutes Jr. Sonja Ivory Stepanic DO Work Phone: [facility] Comment on above: Acute pain of right knee (Primary Dx); History of right knee joint replacement Start: 01-06-2024 End: 01-06-2024 ambulatory SONJA VASQUEZ ALEJANDRAESTEFANI Not Available Start: 12-29-2023 End: 12-29-2023 ambulatory HENRIETTA HAMILTON [facility] Start: 12-24-2023 End: 12-24-2023 ambulatory JUAN MIGUEL ANDREW [facility] Start: 12-22-2023 End: 01-05-2024 Telephone encounter Jr. Sonja Ivory Delfino DO Work Phone: [facility] Start: 12-21-2023 End: 12-21-2023 Bamboo flowsheet Jr. Sonja Ivory Delfino DO Work Phone: [facility] Start: 12-21-2023 End: 12-21-2023 Bamboo flowsheet Jr. Sonja Woodwardestefani DO Work Phone: [facility] Start: 12-21-2023 End: 12-21-2023 Office outpatient visit 25 minutes Jr. Sonja Woodwardestefani DO Work Phone: [facility] Comment on above: Acute pain of right knee (Primary Dx); History of right knee joint replacement; Arthralgia of right knee Start: 12-21-2023 End: 12-21-2023 ambulatory SONJA VASQUEZ DELFINO Not Available Start: 12-16-2023 End: 12-16-2023 Bamboo flowsheet Tabatha Onofre PT Work Phone: [facility] Start: 12-16-2023 End: 12-16-2023 Bamboo flowsheet Tabatha Onofre PT Work Phone: [facility] Start: 12-16-2023 End: 12-16-2023 ambulatory Tabatha Onofre PT Work Phone: [facility] Comment on above: Postoperative pain o f right knee (Primary Dx); Status post right knee replacement; Presence of artificial knee joint, right Start: 12-14-2023 End: 12-14-2023 Bamboo flowsheet Una Maynard [facility] Start: 12-14-2023 End: 12-14-2023 Bamboo flowsheet Una Maynard [facility] Start: 12-14-2023 End: 12-15-2023 ambulatory Una Maynard [facility] Comment on above: Primary osteoarthrit is of right knee (Primary Dx); Postoperative pain of right knee; Status post right knee replacement; Presence of artificial knee joint, right Primary osteoarthrit is of left knee Start: 12-08-2023 End: 12-08-2023 ambulatory [facility] Start: 12-07-2023 End: 12-07-2023 Bamboo flowsheet Una Maynard [employer] Start: 12-07-2023 End: 12-07-2023 Bamboo flowsheet Una Maynard [employer] [facility] Start: 12-07-2023 End: 12-07-2023 ambulatory Una Maynard [facility] Comment on above: Postoperative pain o f right knee (Primary Dx); Status post right knee replacement; Presence of artificial knee joint, right Start: 12-03-2023 End: 12-03-2023 Bamboo flowsheet Tabatha Onofre PT Work Phone: [facility] Start: 12-03-2023 End: 12-03-2023 Bamboo flowsheet Tabatha Mayoton PT Work Phone: [facility] Start: 12-03-2023 End: 12-03-2023 ambulatory Tabatha Onofre PT Work Phone: [facility] Comment on above: Postoperative pain o f right knee (Primary Dx); Status post right knee replacement; Presence of artificial knee joint, right Start: 11-30-2023 End: 11-30-2023 ambulatory Una Maynard [facility] [facility] [employer] [facility] Comment on above: Primary osteoarthrit is of right knee (Primary Dx); Postoperative pain of right knee; Status post right knee replacement; Presence of artificial knee joint, right Start: 11-30-2023 End: 12-01-2023 Telephone encounter Jr. Sonja Saleh DO Work Phone: [facility] Start: 11-25-2023 End: 11-25-2023 Bamboo flowsheet Una Maynard [facility] Start: 11-25-2023 End: 11-25-2023 Bamboo flowsheet Una Maynard [employer] [facility] Start: 11-25-2023 End: 11-25-2023 ambulatory Una Maynard [facility] [facility] Comment on above: Primary osteoarthrit is of right knee (Primary Dx); Postoperative pain of right knee; Status post right knee replacement; Presence of artificial knee joint, right Start: 11-24-2023 End: 11-24-2023 ambulatory [facility] Start: 11-23-2023 End: 11-23-2023 Bamboo flowsheet Sonja Cachorro Saleh DO Work Phone: [facility] Start: 11-23-2023 End: 11-23-2023 Bamboo flowsjared Vasquez Sonja Cachorro Saleh DO Work Phone: [facility] Start: 11-23-2023 End: 11-23-2023 Clinisync Result Encounter Terry Mclaughlin MD Work Phone: [facility] External Department Unsolicited Start: 11-23-2023 End: 11-23-2023 Postop follow up visit related to original px Sonja Cachorro Saleh DO Work Phone: [facility] Comment on above: S/P TKR (total knee replacement), right (Primary Dx); Primary osteoarthritis of right knee Start: 11-23-2023 End: 11-23-2023 ambulatory SONJA VASQUEZ Not Available Start: 11-19-2023 End: 11-19-2023 Bamboo flowsheet Terry Mclaughlin MD Work Phone: [facility] Start: 11-19-2023 End: 11-19-2023 Bamboo flowsheet Terry Mclaughlin MD Work Phone: [facility] Start: 11-19-2023 End: 11-19-2023 Office outpatient visit 25 minutes Terry Mclaughlin MD Work Phone: [facility] Comment on above: Lightheaded (Primary Dx); Fatigue, unspecified type; Postoperative pain of right knee; Overflow incontinence of urine; Encounter for long-term (current) use of medications; Primary osteoarthritis of right knee; Body mass index (BMI) 36.0-36.9, adult Start: 11-19-2023 End: 11-19-2023 ambulatory TERRY MCLAUGHLIN Not Available Start: 11-12-2023 End: 11-19-2023 Telephone encounter Una Maynard [facility] [employer] [facility] Comment on above: re: PT (Tried to con tact re: last scheduled PT on 11/09 was a cancellation and requested a call to check status and if more PT can be scheduled.); Call Back (She contacted and I advised the need to fu w/ Delfino's office to see if scheduling out is able re: PT on-hold.) Start: 11-11-2023 End: 11-13-2023 Telephone encounter Keny THACKER Work Phone: [facility] Start: 11-09-2023 End: 11-09-2023 Isabell Saleh DO Work Phone: [facility] Start: 11-09-2023 End: 11-09-2023 Isabell Saleh DO Work Phone: [facility] Start: 11-09-2023 End: 11-09-2023 Clinisync Result Encounter Generic External Data Provider [facility] External Department Unsolicited Start: 11-09-2023 End: 11-09-2023 Postop follow up visit related to original lynsey Saleh DO Work Phone: [facility] Comment on above: S/P TKR (total knee replacement), right (Primary Dx); Acute pain of right knee Start: 11-09-2023 End: 11-09-2023 ambulatory SONJA VASQUEZ Not Available Start: 11-06-2023 End: 11-06-2023 Bamboo flowsheet Una Maynard [employer] [facility] Start: 11-06-2023 End: 11-06-2023 Bamboo flowsheet Una Maynard [employer] [facility] Start: 11-06-2023 End: 11-06-2023 ambulatory Una Maynard [employer] [facility] Comment on above: Primary osteoarthrit is of right knee (Primary Dx); Postoperative pain of right knee; Status post right knee replacement; Presence of artificial knee joint, right Start: 11-04-2023 End: 11-04-2023 Telephone encounter Una Maynard [employer] [facility] Comment on above: NC/NS for PT (Tried to contact re: NC/NS for last scheduled PT; had to lm. I requested a call back due to she has an ext on the referral dated to begin 11/05.); Call Back (She called noting that the appt was marked wrong on calendar; we rs for 11/05.) Start: 11-04-2023 End: 11-04-2023 ambulatory [facility] Start: 11-03-2023 End: 11-03-2023 Juwan Mclaughlin MD Work Phone: [facility] Comment on above: Insomnia, unspecifie d Start: 10-30-2023 End: 11-03-2023 Telephone encounter Keny THACKER Work Phone: [facility] Start: 10-29-2023 End: 10-29-2023 ambulatory Una Maynard [employer] [facility] Comment on above: Primary osteoarthrit is of right knee (Primary Dx); Postoperative pain of right knee; Status post right knee replacement; Presence of artificial knee joint, right Start: 10-28-2023 End: 10-28-2023 Bamboo flowsjared THACKER Work Phone: [facility] Start: 10-28-2023 End: 10-28-2023 Bamboo flowsheet Keny THACKER Work Phone: [facility] Start: 10-28-2023 End: 10-28-2023 Postop follow up visit related to original px Keny THACKER Work Phone: [facility] Comment on above: S/P TKR (total knee replacement), right (Primary Dx) Start: 10-28-2023 End: 10-28-2023 ambulatory KENY BERNAL Not Available Start: 10-27-2023 End: 10-28-2023 Refill Terry Mclaughlin MD Work Phone: [facility] Comment on above: Primary osteoarthrit is of left knee Start: 10-21-2023 End: 10-21-2023 Bamboo flowsheet Zabrina Kelbley [employer] [facility] Start: 10-21-2023 End: 10-21-2023 Bamboo flowsheet Zabrina Kelbley [employer] [facility] Start: 10-21-2023 End: 10-21-2023 ambulatory Zabrina Kelbley [employer] [facility] Comment on above: Primary osteoarthrit is of right knee (Primary Dx); Postoperative pain of right knee; Status post right knee replacement; Presence of artificial knee joint, right Start: 10-14-2023 End: 10-14-2023 Bamboo flowsheet Zabrina Kelbley [employer] [facility] Start: 10-14-2023 End: 10-14-2023 Bamboo flowsheet Zabrina Kelbley [employer] [facility] Start: 10-14-2023 End: 10-14-2023 Postop follow up visit related to original px Keny THACKER Work Phone: [facility] Comment on above: S/P TKR (total knee replacement), right (Primary Dx); Acute pain of right knee Start: 10-14-2023 End: 10-14-2023 ambulatory KENY BERNAL Not Available Start: 10-14-2023 End: 10-14-2023 ambulatory Zabrina Kelbley [employer] [facility] Comment on above: Primary osteoarthrit is of right knee (Primary Dx); Postoperative pain of right knee; Status post right knee replacement; Presence of artificial knee joint, right Start: 10-12-2023 End: 10-12-2023 Telephone encounter Keny THACKER Work Phone: [facility] Comment on above: Med Refill Start: 10-10-2023 End: 10-11-2023 Preprocedural examination done Keny THACKER Work Phone: [facility] Start: 10-10-2023 End: 10-11-2023 Refill Keny THACKER Work Phone: [facility] Comment on above: Preop examination; Primary osteoarthritis of right knee Start: 10-09-2023 End: 10-09-2023 Bamboo flowsheet Una Brink [employer] [facility] Start: 10-09-2023 End: 10-09-2023 Bamboo flowsheet Una Brink [employer] [facility] Start: 10-09-2023 End: 10-09-2023 ambulatory Una Brink [employer] [facility] Comment on above: Primary osteoarthrit is of right knee (Primary Dx); Postoperative pain of right knee; Status post right knee replacement; Presence of artificial knee joint, right Start: 09-30-2023 End: 10-06-2023 Telephone encounter Keny THACKER Work Phone: [facility] Comment on above: refill Start: 09-30-2023 End: 09-30-2023 ambulatory UNA MAYNARD Not Available Start: 09-29-2023 End: 09-29-2023 ambulatory [facility] Start: 08-17-2023 End: 11-19-2023 Preoperative state Terry Mclaughlin MD Work Phone: [facility] Start: 03-18-2023 Refill Terry Alvarenga Work Phone: [facility] Comment on above: Gastroesophageal ref lux disease without esophagitis (Primary Dx); Chronic constipation; History of allergic reaction Start: 06-16-2022 End: 06-17-[address] BRAD CALERO . Facility: Start: 06-10-2022 End: 06-10-[address] BRAD CALERO . Facility:[facility] Start: 03-11-2022 End: 03-11-[address] BRAD CALERO . Facility:[facility] Start: 09-10-2021 End: 09-10-[address] BRAD CALERO . Facility:[facility] Start: 07-09-2021 End: 07-10-[address] TERRY MCLAUGHLIN Facility:[facility] Procedures Date Procedure Procedure Detail Performing Clinician Start: 08-22-2024 Radiologic examination ankle 2 views Terry Mclaughlin MD Work Phone: Start: 08-22-2024 ALL URIC ACID Terry Mclaughlin MD Work Phone: Start: 06-01-2024 Radiofrequency destruction of peripheral nerve Terry Mclaughlin MD Work Phone: Start: 05-11-2024 Local anesthetic nerve block in lower limb Terry Mclaughlin MD Work Phone: Start: 12-21-2023 Radiologic examination knee 3 views Jr. Sonja Ivory Stepanic DO Work Phone: Start: 11-23-2023 ALL CBC WITH AUTO DIFF Terry Mclaughlin MD Work Phone: Start: 11-09-2023 ALL CBC WITH AUTO DIFF Jr. Sonja Woodward anlena DO Work Phone: Start: 09-07-2023 Mammography Terry Mclaughlin MD Work Phone: Start: 09-01-2023 Microscopic observation [Identifier] in Cervix by Cyto stain Terry Mclaughlin MD Work Phone: Start: 06-16-2022 Mammography Terry Mclaughlin MD Work Phone: History of operative procedure on knee History of right knee joint replacement Jr. Sonja Ivory Stepanic DO Work Phone: History of operative procedure on knee History of right knee joint replacement Jr. Sonja Ivory Stepanic DO Work Phone: History of operative procedure on knee History of right knee joint replacement Jr. Sonja Ivory Stepanic DO Work Phone: History of operative procedure on knee History of right knee joint replacement Jr. Sonja Ivory Stepanic DO Work Phone: History of operative procedure on knee History of right knee joint replacement Jr. Sonja C Stepanic DO Work Phone: Plan of Treatment Date Care Activity Detail Author Start: 09-05-2029 Screening for malign ant neoplasm of cervix [facility] Start: 08-30-2027 Screening for malign ant neoplasm of cervix [facility] Start: 09-01-2026 Screening for malign ant neoplasm of colon [facility] Start: 08-31-2026 Screening for malign ant neoplasm of cervix Pap Smear [facility] Start: 09-08-2025 End: 09-08-2025 Patient encounter procedure [facility] Start: 02-24-2025 End: 02-24-2025 Patient encounter procedure 02/24/2025 11:30 AM EST Office Visit [facility] [address] [place] [address] Terry Mclaughlin MD [address] [place] [phone] [facility] Start: 11-22-2024 End: 11-22-2024 Patient encounter procedure 11/22/2024 1:30 PM EDT Office Visit [facility] [address] [place] [address] Terry Mclaughlin MD [address] [place] [address] [facility] Start: 10-17-2024 Influenza vaccination N [facility] Start: 10-04-2024 End: 10-04-2024 Patient encounter procedure 10/04/2024 9:30 AM EDT Office Visit [facility] [address] [place] [phone] Jr. Sonja Saleh, [address] [facility] [place] [address] [facility] Start: 09-22-2024 End: 09-22-2024 Patient encounter procedure 09/22/2024 11:15 AM EDT Office Visit [facility] [address] [place] [address] Terry Mclaughlin MD [address] [place] [address] [facility] Start: 09-07-2024 End: 11-06-2025 DBT Breast - bilateral screening Bilateral screening mammogram with tomosynthesis Imaging Routine Breast cancer screening by mammogram Expected: 09/07/2024, Expires: 11/06/2025 [facility] Comment on above: Expected: 09/07/2024 , Expires: 11/06/2025 Start: 09-06-2024 End: 09-06-2025 MR Ankle - right WO contrast MR ankle right wo IV contrast Imaging Routine Tendonitis of ankle, right Expected: 09/06/2024 (Approximate), Expires: 09/06/2025 [facility] Work Phone: Comment on above: Expected: 09/06/2024 (Approximate), Expires: 09/06/2025 Start: 09-06-2024 End: 09-06-2025 NM Whole body Bone 3 Phase Views NM bone 3 phase Imaging Routine History of right knee joint replacement Acute pain of right knee Expected: 09/06/2024 (Approximate), Expires: 09/06/2025 [facility] Comment on above: Expected: 09/06/2024 (Approximate), Expires: 09/06/2025 Start: 09-06-2024 Screening for malign ant neoplasm of breast Mammogram [facility] Start: 09-06-2024 End: 09-06-2024 Patient encounter procedure 09/06/2024 10:15 AM EDT Office Visit [facility] [address] [place] [address] Jr. Sonja Saleh, DO [address] [place] [address] [facility] Start: 09-05-2024 End: 09-05-2025 DXA Skeletal system Views for bone density DEXA bone density Imaging Routine Osteopenia, unspecified location Screening for osteoporosis Asymptomatic menopausal state Expected: 09/05/2024, Expires: 09/05/2025 [facility] Comment on above: Expected: 09/05/2024 , Expires: 09/05/2025 Start: 09-05-2024 End: 09-05-2024 Patient encounter procedure 09/05/2024 1:30 PM EDT Office Visit [facility] [address] [place] [address] Major Gallardo DO [address] [place] [address] [facility] Start: 08-25-2024 End: 08-25-2024 Patient encounter procedure 08/25/2024 10:15 AM EDT Office Visit [facility] [address] [place] [address] Terry Mclaughlin MD [address] [place] [address] [facility] Start: 08-23-2024 End: 08-23-2024 Patient encounter procedure 08/23/2024 1:15 PM EDT Office Visit [facility] [address] [place] [address] Terry Mclaughlin MD [address] [place] [address] [facility] Start: 08-22-2024 End: 08-22-2025 Urate [Mass/volume] in Serum or Plasma Uric acid Lab Routine Acute right ankle pain Expected: 08/22/2024 (Approximate), Expires: 08/22/2025 [facility] Work Phone: Comment on above: Expected: 08/22/2024 (Approximate), Expires: 08/22/2025 Start: 08-22-2024 End: 08-22-2025 XR Ankle - right 2 Views XR ankle 2 views right Imaging Routine Acute right ankle pain Expected: 08/22/2024, Expires: 08/22/2025 [facility] Comment on above: Expected: 08/22/2024 , Expires: 08/22/2025 Start: 08-22-2024 End: 08-22-2024 Patient encounter procedure 08/22/2024 9:30 AM EDT Office Visit [facility] [address] [place] [address] Terry Mclaughlin MD [address] [place] [address] Arrived [facility] Comment on above: Arrived Start: 06-29-2024 End: 06-29-2024 Patient encounter procedure [facility] Comment on above: Arrived Start: 06-01-2024 [facility] Start: 05-11-2024 [facility] Start: 04-06-2024 End: 04-06-2024 Patient encounter procedure 04/06/2024 9:00 AM EST Office Visit [facility] [address] [place] [phone] Jr. Sonja Saleh, DO [address] [place] [address] [facility] Start: 03-29-2024 End: 03-29-2024 Patient encounter procedure 03/29/2024 11:15 AM EST Office Visit [facility] [address] [place] [address] Jr. Sonja Saleh, DO [address] [place] [address] [facility] Start: 02-24-2024 End: 02-24-2024 Patient encounter procedure 02/24/2024 1:00 PM EST Office Visit [facility] [address] [place] [phone] Terry Mclaughlin MD [address] [place] [address] [facility] Start: 02-23-2024 End: 02-23-2024 Patient encounter procedure 02/23/2024 10:30 AM EST Office Visit [facility] [address] [place] [phone] Jr. Sonja Saleh, DO [address] [facility] [address] [place] [address] [facility] Start: 02-02-2024 End: 02-02-2024 Patient encounter procedure [facility] Comment on above: Arrived Start: 01-06-2024 End: 01-06-2024 Patient encounter procedure [facility] Comment on above: Arrived Start: 12-23-2023 End: 12-23-2023 ambulatory 12/23/2023 11:00 AM EST Treatment [facility] [address] [facility] [address] [place] [address] Tabatha Onofre, PT [address] [facility] [address] [place] [address] [facility] Start: 12-21-2023 End: 12-21-2023 Patient encounter procedure [facility] Comment on above: Arrived Start: 12-16-2023 End: 12-16-2023 ambulatory 12/16/2023 1:00 PM EDT Treatment [facility] [address] [facility] [address] [place] [address] Tabatha Onofre, PT [address] [facility] [address] [place] [address] [facility] Start: 12-14-2023 End: 12-14-2023 ambulatory [facility] Comment on above: Arrived Start: 12-10-2023 End: 12-10-2023 ambulatory 12/10/2023 1:00 PM EDT Treatment [facility] [address] [place] [address] Una Maynard PTA [facility] Start: 12-07-2023 End: 12-07-2023 ambulatory 12/07/2023 1:00 PM EDT Treatment [facility] [address] [place] [address] Una Maynard PTA [facility] Start: 12-04-2023 End: 12-04-2023 Patient encounter procedure 12/04/2023 10:15 AM EDT Office Visit [facility] [address] [place] [phone] Keny Bernal, KIRSTIE [address] [place] [address] [facility] Start: 12-03-2023 End: 12-03-2023 ambulatory [facility] Comment on above: Arrived Start: 11-30-2023 End: 11-30-2023 ambulatory 11/30/2023 2:00 PM EDT Treatment [facility] [address] [facility] [address] [place] [address] Una Maynard PTA [facility] Start: 11-25-2023 End: 11-25-2023 ambulatory [facility] Comment on above: Arrived Start: 11-23-2023 End: 11-23-2023 Patient encounter procedure [facility] Comment on above: Arrived Start: 11-19-2023 End: 11-18-2024 Basic metabolic 1998 panel - Serum or Plasma Basic metabolic panel Lab Routine Encounter for long-term (current) use of medications Expected: 11/19/2023 (Approximate), Expires: 11/18/2024 [facility] Work Phone: Comment on above: Expected: 11/19/2023 (Approximate), Expires: 11/18/2024 Start: 11-19-2023 End: 11-18-2024 CBC W Auto Differential panel - Blood CBC and differential Lab Routine Encounter for long-term (current) use of medications Expected: 11/19/2023 (Approximate), Expires: 11/18/2024 [facility] Comment on above: Expected: 11/19/2023 (Approximate), Expires: 11/18/2024 Start: 11-19-2023 End: 11-18-2024 Hepatic function 2000 panel - Serum or Plasma Hepatic function panel Lab Routine Encounter for long-term (current) use of medications Expected: 11/19/2023 (Approximate), Expires: 11/18/2024 [facility] Comment on above: Expected: 11/19/2023 (Approximate), Expires: 11/18/2024 Start: 11-19-2023 End: 11-18-2024 TSH W/REFLEX TO FT4 TSH W/REFLEX TO FT4 Lab Routine Lightheaded Fatigue, unspecified type Expected: 11/19/2023 (Approximate), Expires: 11/18/2024 [facility] Comment on above: Expected: 11/19/2023 (Approximate), Expires: 11/18/2024 Start: 11-19-2023 End: 11-19-2023 Patient encounter procedure 11/19/2023 10:30 AM EDT Office Visit [facility] [address] [place] [address] Terry Mclaughlin MD [address] [place] [address] Arrived [facility] Comment on above: Arrived Start: 11-18-2023 End: 11-18-2023 Patient encounter procedure 11/18/2023 11:15 AM EDT Office Visit [facility] [address] [place] [phone] Keny Bernal PA [address] [place] [address] [facility] Start: 11-10-2023 End: 11-10-2023 ambulatory 11/10/2023 11:00 AM EDT Treatment [facility] [address] [place] [phone] Una Maynard PTA [facility] Start: 11-09-2023 End: 11-08-2024 C reactive protein [Mass/volume] in Serum or Plasma C-reactive protein Lab Routine Acute pain of right knee Expected: 11/09/2023 (Approximate), Expires: 11/08/2024 [facility] Comment on above: Expected: 11/09/2023 (Approximate), Expires: 11/08/2024 Start: 11-09-2023 End: 11-08-2024 CBC W Auto Differential panel - Blood CBC auto differential Lab Routine Acute pain of right knee Expected: 11/09/2023 (Approximate), Expires: 11/08/2024 [facility] Work Phone: Comment on above: Expected: 11/09/2023 (Approximate), Expires: 11/08/2024 Start: 11-09-2023 End: 11-08-2024 Erythrocyte sedimentation rate Sedimentation rate, automated Lab Routine Acute pain of right knee Expected: 11/09/2023 (Approximate), Expires: 11/08/2024 [facility] Comment on above: Expected: 11/09/2023 (Approximate), Expires: 11/08/2024 Start: 11-09-2023 End: 11-09-2023 Patient encounter procedure [facility] Comment on above: Arrived Start: 11-06-2023 End: 11-06-2023 ambulatory 11/06/2023 10:00 AM EDT Treatment [facility] [address] [place] [address] Una Maynard PTA [facility] Start: 11-04-2023 End: 11-04-2023 ambulatory 11/04/2023 1:30 PM EDT Treatment [facility] [address] [place] [address] Una Maynard PTA [facility] Start: 10-29-2023 End: 10-29-2023 ambulatory 10/29/2023 1:00 PM EDT Treatment [facility] [address] [place] [address] Una Maynard PTA [facility] Start: 10-28-2023 End: 10-28-2023 Patient encounter procedure [facility] Comment on above: S/P TKR (total knee replacement), right (Primary Dx) Start: 10-21-2023 End: 10-21-2023 ambulatory [facility] Comment on above: Arrived Start: 10-18-2023 Influenza vaccination Influenza Vacc ine (#1) [facility] Start: 10-14-2023 End: 10-14-2023 Patient encounter procedure 10/14/2023 1:30 PM EDT Office Visit [facility] [address] [place] [address] Keny Bernal PA [address] [place] [address] [facility] Start: 10-14-2023 End: 10-14-2023 ambulatory [facility] Start: 10-09-2023 End: 10-09-2023 ambulatory [facility] Comment on above: Primary osteoarthrit is of right knee (Primary Dx); Postoperative pain of right knee; Status post right knee replacement; Presence of artificial knee joint, right Start: 10-07-2023 End: 10-07-2023 ambulatory 10/07/2023 11:30 AM EDT Treatment [facility] [address] [facility] [address] [place] [address] Una Maynard PTA [facility] Start: 09-01-2023 End: 09-01-2023 Patient encounter procedure 09/01/2023 11:30 AM EDT Office Visit [facility] [address] [place] [address] Major Gallardo DO [address] [place] [address] [facility] Start: 08-17-2023 End: 08-17-2023 Patient encounter procedure 08/17/2023 10:45 AM EDT Office Visit [facility] [address] [place] [address] Terry Mclaughlin MD [address] [place] [address] [facility] Start: 07-15-2023 End: 07-15-2023 Patient encounter procedure 07/15/2023 11:00 AM EDT Office Visit [facility] [address] [place] [phone] Jr. Sonja Saleh, DO [address] [place] [address] [facility] Start: 06-17-2023 Screening for malign ant neoplasm of breast Mammogram [facility] Start: 10-17-2022 Influenza vaccination Influenza Vacc ine (#1) [facility] Start: 10-09-1983 Screening for malign ant neoplasm of cervix Pap Smear [facility] Start: 1962 Screening for malign ant neoplasm of colon [facility] IGP, APT HPV,RFX 16/18,45 IGP, APT HPV,RFX 16/18,45 Lab Routine Encounter for Papanicolaou smear of cervix Ordered: 09/05/2024 [facility] Work Phone: Comment on above: Ordered: 09/05/2024 Patient Education [facility] Work Phone: Patient referral [facility] Work Phone: XR Knee - right 1 or 2 Views XR knee 1 or 2 views right Imaging Routine Acute pain of right knee 10/14/2023 1:11 PM EDT [facility] Work Phone: Immunizations Immunization Date Immunization Notes Care Provider Fa cili 12-03-2021 COVID-19 mRNA Bivale nt Booster (Pfizer) Terry Mclaughlin MD Work Phone: [facility] 12-03-2021 Moderna Bivalent Booster Vaccination Terry Mclaughlin MD Work Phone: [facility] 09-07-2021 COVID-19 Comirnaty (Pfizer) Tri-Sucrose 12+ Terry Mclaughlin MD Work Phone: [facility] 12-15-2020 COVID-19 mRNA, Comirnaty (Pfizer) Terry Mclaughlin MD Work Phone: [facility] 06-03-2020 COVID-19 mRNA, Comirnaty (Pfizer) Terry Mclaughlin MD Work Phone: [facility] 05-14-2020 COVID-19 mRNA, Comirnaty (Pfizer) Terry Mclaughlin MD Work Phone: [facility] 12-27-2018 influenza, injectabl e, quadrivalent, preservative free Terry Mclaughlin MD Work Phone: [facility] 12-27-2018 influenza virus vaccine, unspecified formulation Terry Mclaughlin MD Work Phone: [facility] Payers Date Payer Category Payer Self-pay [id number] 2024 Self-pay 2021 [facility] [employer] [id number] 2021 Unknown BCBS BCBS xxxxxx [id number] 2021-Present [phone] [address] [place] [address] [id number] 1962 Unknown [id number] 2.16.840.1.151937.3.579.2 .593 1962 Unknown [id number] 2.16.840.1.322234.3.579.2 .593 1962 Unknown [id number] 2.16.840.1.363179.3.579.2 .593 1962 Unknown [id number] 2.16.840.1.009750.3.579.2 .593 1962 Unknown [id number] 2.16.840.1.638712.3.579.2 .593 1962 Unknown [id number] 2.16.840.1.052950.3.579.2 .1286 1962 Unknown [id number] 2.16.840.1.972393.3.579.2 .1286 1962 Unknown [id number] 2.16.840.1.794656.3.579.2 .1286 1962 Unknown [id number] 2.16.840.1.352305.3.579.2 .1259 1962 Unknown [id number] 2.16.840.1.139553.3.579.2 .1259 1962 Unknown [id number] 2.16.840.1.592184.3.579.2 .1259 1962 Unknown [id number] 2.16.840.1.910251.3.579.2 .1259 1962 Unknown [id number] 2.16.840.1.059123.3.579.2 .1259 1962 Unknown [id number] 2.16.840.1.628420.3.579.2 .1259 1962 Unknown [id number] 2.16.840.1.322516.3.579.2 .1259 1962 Unknown [id number] 2.16.840.1.077799.3.579.2 .1258 1960 Unknown [id number] 2.16.840.1.826923.3.579.2 .1258 1960 Unknown [id number] 2.16.840.1.797606.3.579.2 .1258 1962 Unknown [id number] 2.16.840.1.459947.3.579.2 .1258 1962 Unknown [id number] 2.16.840.1.064154.3.579.2 .1258 1962 Unknown [id number] 2.16840.1.213245.3.579.2 .1258 1962 Unknown [id number] 2.16840.1.735615.3.579.2 .1258 1962 Unknown [id number] 2.840.1.657981.3.579.2 .1258 1962 Unknown [id number] 2.16840.1.718836.3.579.2 .1258 1962 Unknown [id number] 2.16840.1.731435.3.579.2 .1258 1962 Unknown [id number] 2.16840.1.722722.3.579.2 .1258 1962 Unknown [id number] 2.16840.1.078222.3.579.2 .1258 1962 Unknown [id number] 2.16.840.1.975540.3.579.2 .1258 1962 Unknown [id number] 2.16840.1.052420.3.579.2 .1258 1962 Unknown [id number] 2.16.840.1.577035.3.579.2 .1258 1962 Unknown [id number] 2.16840.1.985664.3.579.2 .1258 1962 Unknown [id number] 2.16.840.1.631794.3.579.2 .1259 1962 Unknown [id number] 2.16.840.1.958400.3.579.2 .9 1962 Unknown [id number] 2.16.840.1.149008.3.579.2 .9 1962 Unknown [id number] 2.16.840.1.708545.3.579.2 .1258 1962 Unknown [id number] 2.16.840.1.769975.3.579.2 .9 1962 Unknown [id number] 2.16.840.1.071990.3.579.2 .1258 1962 Unknown [id number] 2.16.840.1.579537.3.579.2 .1285 1962 Unknown [id number] 2.16.840.1.318670.3.579.2 .1285 1962 Unknown [id number] 2.16.840.1.311174.3.579.2 .1285 1962 Unknown [id number] 2.16.840.1.786399.3.579.2 .1285 1962 Unknown [id number] 2.16.840.1.072748.3.579.2 .1285 1962 Unknown [id number] 2.16.840.1.237012.3.579.2 .1285 1962 Unknown [id number] 2.16.840.1.353002.3.579.2 .1285 1962 Unknown [id number] 2.16.840.1.702821.3.579.2 .1285 1962 Unknown [id number] 2.16.840.1.409007.3.579.2 .1285 1962 Unknown [id number] 2.16.840.1.745778.3.579.2 .1285 1962 Unknown [id number] 2.16.840.1.094688.3.579.2 .128 1962 Unknown [id number] 2.16.840.1.277007.3.579.2 .1285 1962 Unknown [id number] 2.16.840.1.685731.3.579.2 .1285 1962 Unknown [id number] 2.16840.1.605092.3.579.2 .128 1962 Unknown [id number] 2.16840.1.896587.3.579.2 .1285 1962 Unknown [id number] 2.840.1.946290.3.579.2 .1285 1962 Unknown [id number] 2.840.1.407966.3.579.2 .1285 1962 Unknown [id number] 2.840.1.810773.3.579.2 .1285 1962 Unknown [id number] 2.840.1.463756.3.579.2 .1285 1962 Unknown [id number] 2.840.1.343247.3.579.2 .1285 1962 Unknown [id number] 2.840.1.724048.3.579.2 .1285 1962 Unknown [id number] 2.840.1.288446.3.579.2 .1285 1962 Unknown [id number] 2.840.1.789021.3.579.2 .1285 1962 Unknown [id number] 2.840.1.922766.3.579.2 .1285 1962 Unknown [id number] 2.840.1.192366.3.579.2 .1285 1962 Unknown [id number] 2.840.1.265857.3.579.2 .1286 1962 Unknown [id number] 2.16.840.1.513675.3.579.2 .1286 1962 Unknown [id number] 2.16.840.1.235230.3.579.2 .1286 1962 Unknown [id number] 2.16.840.1.386325.3.579.2 .1286 1959 Unknown [id number] Self-pay [id number] Unknown [id number] Unknown [id number] 2.16.840.1.376473.3.579.2 .531 Unknown [id number] 2.16.840.1.072791.3.579.2 .531 Social History Date Type Detail Facility Start: 02-18-2023 End: 06-01-2024 Tobacco smoking status [facility] Ex-smoker [facility] History of tobacco use Current smoker [facility] History of tobacco use Cigarette Smoker [facility] Start: 02-18-2023 Tobacco use and exposure Smokeless tobacco non-user [facility] Start: 03-03-2023 End: 09-22-2024 Alcohol intake Lifetime non-drinker (finding) [facility] Start: 03-03-2023 End: 09-05-2024 History of Social function [facility] Start: 03-03-2023 End: 09-05-2024 Tobacco use panel [facility] Start: 1960 Sex Assigned At Not on file [facility] How often to you hav e a drink containing alcohol? Never [facility] How many standard drinks containing alcohol do you have on a typical day? Patient does not drink [facility] Tobacco smoking stat us [facility] Unknown if ever smoked [facility] Work Phone: Start: 04-13-2024 End: 06-30-2024 Sex Female (finding) [facility] Start: 1960 Sex Assigned At Female F [facility] Goals Date Patient Goal Desired Activity /State Functional Status Date Assessment Result Facility 09-05-2024 Patient Health [facility] ionnaire 2 item (PHQ-2) [Reported] [facility] 09-05-2024 Total score [AUDIT-C] 0 09/06/19 25 1:22 PM EDT Vicki Beaulieu MA [facility] Clinical Notes 09-30-2023 to 09-23-2024 Telephone Encounter - Taniya Jhaveri - 09/23/2024 2:19 PM EDTTelephone Encounter - Taniyalucy Jhaveri - 09/23/2024 2:19 PM EDTMzeina Mclaughlin MD - 09/22/2024 12:16 PM EDT Note Date & Type Note Facility 09-23-2024 Telephone encount er Note R ankle pain, MRI of R ankle was ordered Per Beata at [facility] MRI Dept, patient has clips in her head they were put in over 10 years ago and they were unable to complete the MRI Please advise next step [facility] 09-23-2024 Miscellaneous Notes Formattin g of this note might be different from the original. R ankle pain, MRI of R ankle was ordered Per Beata at [facility] MRI Dept, patient has clips in her head they were put in over 10 years ago and they were unable to complete the MRI Please advise next step documented in this encounter [facility] 09-22-2024 History of Presen t illness Narrative Associated Problem(s): Primary osteoarthritis of right knee Continued pain and problems standing. Follow with ortho. Associated Problem(s): Postoperative pain of right knee Continued pain and follow with ortho. Associated Problem(s): Lumbar spondylosis Pain worse and use norco PRN. Associated Problem(s): Class 2 severe obesity due to excess calories with serious comorbidity and body mass index (BMI) of 37.0 to 37.9 in adult ([facility]) Patient doing well with adipex and lost [...] develop new or worsening symptoms contact office. Images from the original note were not included. Subjective Patient ID: Phuong Randhawa is a 63 y.o. female who presents [...] (BMI) of 37.0 to 37.9 in adult (CMS-HCC) Patient doing [...] develop new or worsening symptoms contact office. Relevant Medications phentermine (Adipex-P) 37.5 MG tablet documented in this encounter [facility] 09-06-2024 History of Presen t illness Narrative Images from the original note were not included. HISTORY OF PRESENT ILLNESS: EST PT Phuong Randhawa is an 63 y.o. @ female. (EST PT) - RECHECK (R) KNEE -S/P (R) TKA 09/08/23 (~1YR) - NO LONGER SEEING DR REYES STATES RELIEF SHE GETS IS TEMPORARY. XRAYS, W/ SUNRISE 12/21/23, 10/14/[address] (R) KNEE 02/19/24 - DR. GUILLAUME NO MRI LABS 11/09/23 @ [facility] (CBC / SED RATE / CRP) S/P MDP 10/14/23 NO CORTISONE INJ FINISHED PT @[facility] (POST-OP) S/P PAIN MGMT (DR. REYES) REFERRAL S/P PAIN MGMT REFERRAL - STATES ABLATION GAVE TEMPORARY RELIEF AND IS WEARING OFF. DOES NOT WANT TO CONTINUE PAIN MANAGEMENT IT IS NOT COVERED BY INSURANCE AND RELIEF IS SHORT TERM. RX TENS UNIT WITH SOME TEMP RELIEF. ANTERIOR / INFERIOR KNEE PAIN. ADMITS WEAKNESS IN LEG - DIFFICULTY WITH STAIRS - NOTES INSTABILITY. ADMITS POSTERIOR TIGHTNESS. INTERMITTENT MINIMAL SWELLING. GOOD ROM. N/T LATERAL KNEE. DENIES GRINDING. WEARING BRACE ALL DAY. ICING / ELEVATING PRN. LIDOCAINE TOPICAL - TEMPORARY RELIEF. MOBIC / TYL ARTHRITIS DAILY (FOR GENERAL ARTHRITIS). NORCO PRN (DR. MCLAUGHLIN) - SOME RELIEF. PT IS ACTIVE WITH STANDING AT CURRENT JOB. DOING HEP. HX OF OSTEOPENIA- TAKING CALCIUM AND VITAMIN K RAJNI: FALL BACKWARDS - WEAKNESS / DIFFICULTY WITH STANDING UP ~06/16/24 MDP / PERCOCET REACTION - D/T DUODENAL ULCER - NAUSEA / ABDOMINAL PAIN. *NEW PROBLEM* RT ANKLE PAIN XRAY [facility] 08/22/24 WEARS ANKLE BRACE + MOBIC LABS FOR GOUT 08/22/[address] MCLAUGHLIN FOR ANKLE PAIN, XRAYS DONE AT [facility], WEARS ANKLE BRACE, TAKING MOBIC. NOT GETTING BETTER ALLERGIES: Allergies Allergen Reactions Bee Venom Anaphylaxis Sulfa Antibiotics Swelling and Rash Erythromycin Rash Sulfamethoxazole-Trimethoprim Rash HOME MEDICATIONS: Current Outpatient Medications Medication Instructions amitriptyline (Elavil) 75 MG tablet 1 tablet, Nightly Brexpiprazole (Rexulti) 2 MG tablet Take by mouth. cyclobenzaprine (FLEXERIL) 10 mg, Oral, 3 times daily PRN diazePAM (VALIUM) 10 mg, 3 times daily PRN EPINEPHrine (Epipen) 0.3 MG/0.3ML injection syringe INJECT 1 (ONE) pen NEEDED Hibiclens 4 % solution APPLY TO THE AFFECTED AREA(S) topically for a 1 time dose the morning OF surgery HYDROcodone-acetaminophen ([place]) 5-325 MG tablet 1 tablet, Oral, 4 times daily PRN meloxicam (MOBIC) 15 mg, Oral, Daily omeprazole (PRILOSEC) 40 mg, Oral, 2 times daily oxybutynin XL (DITROPAN-XL) 15 mg, Oral, Daily, Do not crush, chew, or split. phentermine (ADIPEX-P) 37.5 mg, Oral, Daily before breakfast sucralfate (CARAFATE) 1 g, Oral, 4 times daily before meals and nightly topiramate (TOPAMAX) 100 mg, 2 times daily venlafaxine XR (EFFEXOR XR) 150 mg, 2 times daily zolpidem (AMBIEN) 10 mg, Oral, Nightly PHYSICAL EXAM: Knee Musculoskeletal Exam Gait Gait is normal. Limp: right Limp comment: Improved from prior visit Inspection Leg length disparity: no discrepancy Right Erythema: none Effusion: none Edema: none Ecchymosis: none Deformity: none Alignment: normal Previous incision: anterior Incision: well-healed Inspection additional comments: point tenderness to the superior lateral pole of the left patella consistent with possible nerve entrapment in scar tissue. Continues to improveFrom last visit and is nearly completely resolved Palpation Right Right knee palpation is unremarkable. Increased warmth: none Masses: none Tenderness: none Range of Motion Right Right knee range of motion is normal and full. Active extension: 0 Passive extension: 0 Active flexion: 120 Passive flexion: 120 Strength Right Right knee strength is normal. Extension: 5/5. Extension is affected by pain. Flexion: 5/5. Flexion is affected by pain. Instability Right Instability signs: none - stable Varus stress grade: normal Valgus stress grade: normal Neurovascular Right Right knee neurovascular exam is normal. Pulses - PT: normal Posterior tibial: 2+ Capillary refill: warm and well-perfused Special Signs Right Right knee special signs are normal. Patellar apprehension: none General Constitutional: appears stated age Labored breathing: no Psychiatric: normal mood and affect Neurological: alert and oriented x3 Skin: intact Lymphadenopathy: none Foot/Ankle Musculoskeletal Exam Gait Gait is normal. Limp: right Limp comment: Improved from prior visit Inspection Leg length disparity: no discrepancy Right Right foot/ankle inspection is normal. Erythema: none Effusion: none Edema: mild Ecchymosis: none Deformity: moderate Deformity comment: Positive too many toes sign Alignment: normal Palpation Right Right foot/ankle palpation is unremarkable. Increased warmth: none Masses: none Tenderness: present Tenderness comment: No tenderness or instability or crepitus noted with deep palpation across the fracture site to the fifth metatarsal base. Posterior tibialis tendon: severe Range of Motion Right Right foot/ankle range of motion is normal and full. Strength Right Right foot/ankle strength is normal. Tibialis anterior: 5/5. Extensor hallucis longus: 5/5. Flexor hallucis longus: 5/5. Gastroc/soleus: 5/5. Tibialis posterior: 5/5. Peroneals: 5/5. Neurovascular Right Right foot/ankle neurovascular exam is normal. Pulses - PT: normal Posterior tibial: 2+ Capillary refill: warm and well-perfused Dorsum foot: normal Lateral foot: normal Plantar foot: normal Achilles: 2/4 Clonus: normal Special Tests Right Anterior drawer test: negative Tate's test: negative General Constitutional: appears stated age Labored breathing: no Psychiatric: normal mood and affect Neurological: alert and oriented x3 Skin: intact Lymphadenopathy: none Vitals: There is no height or weight on file to calculate BMI. Tobacco Use: Medium Risk (08/22/2024) Patient History Smoking Tobacco Use: Former Smokeless Tobacco Use: Never Passive Exposure: Not on file Alcohol Use: Not At Risk (09/01/2023) AUDIT-C Frequency of Alcohol Consumption: Never Average Number of Drinks: Patient does not drink Frequency of Binge Drinking: Never IMAGING: Procedures No orders of the defined types were placed in this encounter. ASSESSMENT: No diagnosis found. PLAN: #1 Right knee has become more painful in the inferior medial and lateral tibial region compared to prior exams. We have recommended a bone scan throughout prosthetic loosening. #2 right ankle is consistent with posterior tibial tendon disorder with some many toes sign. We recommended an MRI of her ankle for posterior tibial tendon rupture/tear we'll see her back in 1 month to go over the results of both studies. Questions answered in laymen terms at the bedside. The diagnosis, home exercise plan and any ongoing restrictions/ recommendations reviewed. If unable to be reached in office, I recommend evaluation at nearest Emergency Room if any symptoms worsened or new symptoms develop for requiring urgent evaluation. documented in this encounter [facility] 09-05-2024 History of Presen t illness Narrative Images from the original note were not included. Major Gallardo, DO Obstetrics and Gynecology Phuong Randhawa 1960 09/05/24 [id number] Yearly Wellness Exam Chief Complaint Patient presents with Gynecologic Exam LMP: 2005 HRT: None Last pap 09-01-23 [facility], HPV pos. Last mammogram 09-07-23 [facility]. Denies breast, urinary, or bowel concerns. Visit Vitals BP 126/76 Ht 5' 5 Wt 219 lb BMI 36.44 kg/m OB Status Postmenopausal Smoking Status Former BSA 2.13 m OB History Para Term AB Living 3 2 1 1 2 SAB IAB Ectopic Multiple Live Births 0 2 # Outcome Date GA Lbr Eugenio/2nd Weight Sex Type Anes PTL Lv 3 Term 8 lb 4 oz Vag-Spont JONATHAN 2 Para 8 lb 4 oz Vag-Spont JONATHAN 1 Molar Current Outpatient Medications Medication Sig Dispense Refill amitriptyline (Elavil) 50 MG tablet TAKE 1 TABLET BY MOUTH NIGHTLY take with 75 MG tablet Rexulti 3 MG tablet Take 1 tablet by mouth in the morning. amitriptyline (Elavil) 75 MG tablet Take 1 tablet by mouth at bedtime cyclobenzaprine (Flexeril) 10 MG tablet Take 1 tablet (10 mg) by mouth 3 (three) times a day as needed for muscle spasms 60 tablet 2 diazePAM (Valium) 10 MG tablet Take 10 mg by mouth 3 (three) times a day as needed. EPINEPHrine (Epipen) 0.3 MG/0.3ML injection syringe INJECT 1 (ONE) pen NEEDED 1 each 3 Hibiclens 4 % solution APPLY TO THE AFFECTED AREA(S) topically for a 1 time dose the morning OF surgery HYDROcodone-acetaminophen ([place]) 5-325 MG tablet Take 1 tablet by mouth 4 (four) times a day as needed for moderate pain or severe pain for up to 15 days 60 tablet 0 meloxicam (Mobic) 15 MG tablet TAKE 1 TABLET BY MOUTH ONCE DAILY 90 tablet 3 omeprazole (PriLOSEC) [address] capsule TAKE 1 CAPSULE BY MOUTH TWICE DAILY 60 capsule 5 oxybutynin XL (Ditropan-XL) 15 MG 24 hr tablet Take 1 tablet (15 mg) by mouth Daily Do not crush, chew, or split. 30 tablet 5 phentermine (Adipex-P) 37.5 MG tablet Take 1 tablet (37.5 mg) by mouth in the morning. Take before meals. 30 tablet 0 sucralfate (Carafate) 1 g tablet Take 1 tablet (1 g) by mouth in the morning and 1 tablet (1 g) at noon and 1 tablet (1 g) in the evening and 1 tablet (1 g) before bedtime. Take before meals. 120 tablet 5 topiramate (Topamax) 100 MG tablet Take 100 mg by mouth in the morning and 100 mg in the evening. venlafaxine XR (Effexor XR) 150 MG 24 hr capsule Take 150 mg by mouth in the morning and 150 mg before bedtime. Do not crush or chew. . zolpidem (Ambien) 10 MG tablet Take 1 tablet (10 mg) by mouth at bedtime 30 tablet 2 No current facility-administered medications for this visit. Allergies Allergen Reactions Bee Venom Anaphylaxis Sulfa Antibiotics Swelling and Rash Erythromycin Rash Sulfamethoxazole-Trimethoprim Rash Past Surgical History: Procedure Laterality Date CHOLECYSTECTOMY HERNIA REPAIR Right Inguinal LITHOTRIPSY kidney stent MULTIPLE TOOTH EXTRACTIONS SINUS SURGERY TOTAL KNEE ARTHROPLASTY Left TOTAL KNEE ARTHROPLASTY Right 09/08/2023 RT [facility] - DR SALEH TUMOR EXCISION neck Past Medical History: Diagnosis Date Acid reflux Anxiety Bilateral leg edema Chronic seasonal allergic rhinitis due to pollen Depression Duodenal ulcer Female stress incontinence GENNA (generalized anxiety disorder) Gastroesophageal reflux disease HLD (hyperlipidemia) HPV (human papilloma virus) anogenital infection Hyperhidrosis Insomnia, persistent Lumbar spondylosis Major depressive disorder, recurrent, moderate (HCC) Obesity with body mass index (BMI) of 30.0 to 39.9 Osteopenia of both hips Panic attack Pap smear abnormality of cervix/human papillomavirus (HPV) positive Peripheral polyneuropathy Renal calculi Tobacco user ROS Const: Denies appetite change, fever, chills. Allergy: Denies medication reaction. Ocular: Denies visual acuity change. ENT: Denies hearing change. Endoc: Denies weight loss. Resp: Denies dyspnoea, wheezing. Cardiac: Denies angina, palpitations. GI: Denies nausea, vomiting. Haem: Denies bleeding. : Denies incontinence. MSK: Denies arthralgias, joint oedema. Derm: Denies rash, hair loss. Neuro: Denies ataxia, tremor. Also see HPI for elements of ROS documented therein and for details of positive findings, which shall supersede the foregoing. EXAM GENERAL EXAMINATION alert oriented well developed, well nourished. HEAD: normocephalic atraumatic. EYES: sclera anicteric. EARS: no obvious hearing deficit. NECK/THYROID: neck supple no cervical lymphadenopathy no thyromegaly. LYMPH NODES: no axillary, supraclavicular or inguinal adenopathy. SKIN: warm and dry. HEART: regular rate and rhythm. LUNGS: clear to auscultation bilaterally. CHEST:axillary nodes grossly normal. BREASTS:no masses palpable bilaterally, normal nipples bilaterally - everted -fatty replaced - dense - well supported- axilla negative, sk's ABDOMEN: soft, nontender, nondistended, no masses palpable. BACK: no costovertebral angle tenderness, no obvious scoliosis/kyphosis. FEMALE GENITOURINARY:whizzer hand in room -normal vaginal mucosa, multip flush cervix without lesion, normal AV atrophic uterus, adnexa negative - cul-de-sac negative. RECTAL:normal tone , no masses palpable , only small external hemorrhoids. EXTREMITIES no edema. NEUROLOGIC: alert and oriented. PSYCH: cooperative with exam. ICD-10-CM 1. Encounter for gynecological examination without abnormal finding Z01.419 Pelvic and breast exam completed. Findings of today's exam discussed with the patient. Continue MSBE. Ca/Vit D recommendations reviewed with the patient. The patient is to contact the office with any changes to her gynecological condition or any changes with breast or bleeding. The patient is to return in 1 year or as needed 2. Encounter for Papanicolaou smear of cervix Z12.4 IGP, APT HPV,RFX 16/18,45 Thinprep collected. Will notify patient if results are abnormal. If unchaged repeat 1 year. 3. Breast cancer screening by mammogram Z12.31 Bilateral screening mammogram with tomosynthesis Screening mammogram ordered. Patient to call and schedule. 4. Osteopenia, unspecified location M85.80 DEXA bone density Discussed DEXA from 2022: Osteopenia. Voiced was only able to take fosamax one dose, unable to tolerate due to duodenal ulcer. Repeat DEXA scan, following with Dr. Saleh tomorrow. 5. Screening for osteoporosis Z13.820 DEXA bone density Screening DEXA ordered. Patient to call and schedule. 6. Asymptomatic menopausal state Z78.0 DEXA bone density Entered by Elyssa Tate MA acting as scribe for Dr. Major Gallardo. Signature Elyssa Tate MA Date 09/05/24 . Time 1:42 PM . The documentation recorded by the scribe accurately reflects the service(s) I personally performed and the decisions I made. Signature Donte Gallardo D.O. Date 09/05/24 Time 5:00PM. documented in this encounter [facility] 08-22-2024 History of Presen t illness Narrative Associated Problem(s): Seasonal allergic rhinitis due to pollen Symptoms controlled with medication and continue. Associated Problem(s): Primary osteoarthritis of right knee Continued pain and problems standing. Follow with ortho. Associated Problem(s): Primary insomnia Sleeping well with medication and continue. Associated Problem(s): Lumbar spondylosis Pain worse and use norco PRN. Associated Problem(s): Class 2 severe obesity due to excess calories with serious comorbidity and body mass index (BMI) of 37.0 to 37.9 in adult ([facility]) Patient overweight and difficult time losing weight. [...] month. OARRS reviewed. Continue medications as prescribed. Associated Problem(s): Acute right ankle pain Unclear cause of pain but potentially related to arthritis. Check x-ray and uric acid. Treat with prednisone. Images from the original note were not included. Subjective Patient ID: Phuong Randhawa is a 63 y.o. female who presents [...] Able to fall asleep and stay asleep. Wakes up rested in am. Allergies controlled with medication. No congestion or rhinorrhea. No TEIXEIRA or sinus pressure. Ears not plugged or popping. Weight up 5 pounds since last visit. Not active and not walking much or exercising. Tries to watch diet and eat healthy. Increased fruits and vegetables. Smaller portions and limits snacking. Tries to limit total [...] and use norco PRN. Relevant Medications HYDROcodone-acetaminophen ([place]) 5-325 MG tablet Primary insomnia Sleeping well with medication and continue. Seasonal allergic rhinitis due to pollen Symptoms controlled with medication and continue. Class 2 severe obesity due to excess calories with serious comorbidity and body mass index (BMI) of 37.0 to 37.9 in adult (CMS-HCC) Patient overweight and difficult time losing weight. [...] 2 views right documented in this encounter [facility] 06-29-2024 History of Presen t illness Narrative Images from the original note were not included. HISTORY OF PRESENT ILLNESS: EST PT Phuong Randhawa is an 63 y.o. @ female. (EST PT) - RECHECK (R) KNEE S/P (R) TKA 09/08/23 (~10 MONTHS) ; S/P PAIN MGMT (DR. REYES) REFERRAL - RECENT INJURY FALL BACKWARDS - WEAKNESS / DIFFICULTY WITH STANDING UP ~2 WKS AGO XRAYS, W/ SUNRISE 12/21/23, 10/14/[address] (R) KNEE 02/19/24 - DR. GUILLAUME NO MRI LABS 11/09/23 @ [facility] (CBC / SED RATE / CRP) S/P MDP 10/14/23 NO CORTISONE INJ FINISHED PT @[facility] (POST-OP) S/P PAIN MGMT (DR. REYES) REFERRAL S/P PAIN MGMT REFERRAL - RX TENS UNIT - USES IFC SETTING - WITH RELIEF / TX WITH KNEE ABLATION - WITH RELIEF. STATES SHE HAS A PINPOINT NERVE PROCEDURE SCHEDULED 06/30/24 FOR ANTERIOR KNEE PAIN. ANTERIOR / INFERIOR KNEE PAIN. ADMITS WEAKNESS IN LEG - DIFFICULTY WITH STAIRS - NOTES INSTABILITY. ADMITS POSTERIOR TIGHTNESS. INTERMITTENT MINIMAL SWELLING. GOOD ROM. N/T. ADMITS POPPING / BUCKLING. DENIES GRINDING. WEARING BRACE ALL DAY. ICING / ELEVATING PRN. USING TENS UNIT. LIDOCAINE PATCHES / TOPICAL - TEMPORARY RELIEF. MOBIC / TYL ARTHRITIS DAILY (FOR GENERAL ARTHRITIS). NORCO PRN (DR. MCLAUGHLIN) - SOME RELIEF. PT IS ACTIVE WITH STANDING AT CURRENT JOB. PT WOULD LIKE TO DISCUSS HEP. MDP / PERCOCET REACTION - D/T DUODENAL ULCER - NAUSEA / ABDOMINAL PAIN. ALLERGIES: Allergies Allergen Reactions Bee Venom Anaphylaxis Sulfa Antibiotics Swelling and Rash Erythromycin Rash Sulfamethoxazole-Trimethoprim Rash HOME MEDICATIONS: Current Outpatient Medications Medication Instructions amitriptyline (Elavil) 75 MG tablet 1 tablet, Oral, Nightly Brexpiprazole (Rexulti) 2 MG tablet Oral cyclobenzaprine (FLEXERIL) 10 mg, Oral, 3 times daily PRN diazePAM (VALIUM) 10 mg, Oral, 3 times daily PRN EPINEPHrine (Epipen) 0.3 MG/0.3ML injection syringe INJECT 1 (ONE) pen NEEDED Fiber-Lax 1,250 mg, Oral, Daily Hibiclens 4 % solution APPLY TO THE AFFECTED AREA(S) topically for a 1 time dose the morning OF surgery meloxicam (MOBIC) 15 mg, Oral, Daily methylPREDNISolone (Medrol Dospak) 4 MG tablets Follow schedule on package instructions methylPREDNISolone (Medrol Dospak) 4 MG tablets Follow schedule on package instructions omeprazole (PRILOSEC) 40 mg, Oral, 2 times daily oxybutynin XL (DITROPAN-XL) 15 mg, Oral, Daily, Do not crush, chew, or split. PARoxetine (PAXIL) 20 mg, Oral, Every morning sucralfate (CARAFATE) 1 g, Oral, 4 times daily before meals and nightly venlafaxine XR (EFFEXOR XR) 150 mg, Oral, 2 times daily, Do not crush or chew. zolpidem (AMBIEN) 10 mg, Oral, Nightly PHYSICAL EXAM: Knee Musculoskeletal Exam Gait Gait is normal. Limp: right Limp comment: Improved from prior visit Inspection Leg length disparity: no discrepancy Right Erythema: none Effusion: none Edema: none Ecchymosis: none Deformity: none Alignment: normal Previous incision: anterior Incision: well-healed Inspection additional comments: Significant point tenderness to the superior lateral pole of the left patella consistent with possible nerve entrapment in scar tissue. Continues to improve and is significantly less painful than last visit. Palpation Right Right knee palpation is unremarkable. Increased warmth: none Masses: none Tenderness: none Range of Motion Right Right knee range of motion is normal and full. Active extension: 0 Passive extension: 0 Active flexion: 120 Passive flexion: 120 Strength Right Right knee strength is normal. Extension: 5/5. Flexion: 5/5. Instability Right Instability signs: none - stable Varus stress grade: normal Valgus stress grade: normal Neurovascular Right Right knee neurovascular exam is normal. Pulses - PT: normal Posterior tibial: 2+ Capillary refill: warm and well-perfused Special Signs Right Right knee special signs are normal. Patellar apprehension: none General Constitutional: appears stated age Labored breathing: no Psychiatric: normal mood and affect Neurological: alert Skin: intact Lymphadenopathy: none Vitals: There is no height or weight on file to calculate BMI. Tobacco Use: Medium Risk (06/29/2024) Patient History Smoking Tobacco Use: Former Smokeless Tobacco Use: Never Passive Exposure: Not on file Alcohol Use: Not At Risk (09/01/2023) AUDIT-C Frequency of Alcohol Consumption: Never Average Number of Drinks: Patient does not drink Frequency of Binge Drinking: Never IMAGING: Procedures No orders of the defined types were placed in this encounter. ASSESSMENT: ICD-10-CM 1. Nerve pain M79.2 2. History of right knee joint replacement Z96.651 PLAN: Patient continues to improve with each visit. We will continue her with pain management with Dr. Belcher see her back in 3 months to reassess. Questions answered in laymen terms at the bedside. The diagnosis, home exercise plan and any ongoing restrictions/ recommendations reviewed. If unable to be reached in office, I recommend evaluation at nearest Emergency Room if any symptoms worsened or new symptoms develop for requiring urgent evaluation. documented in this encounter [facility] 04-13-2024 Evaluation note Diagnosis Onset Date Resolution Other chronic pain acute Februa 2024 1:02pm Primary osteoarthritis of right knee acute April 13 025 1:02pm [facility] Work Phone: 1(930) 233-349902-26-2025 Evaluation note* Diagnosis Onset Date Resolution Status Admit Date Other chronic pain acute 2024 1:02pm Primary osteoarthritis of ri ght knee acute April 13 025 1:02pm Other chronic pain acute May 23, 2024 12:13pm Primary osteoarthritis of ri ght knee acute May 23, 2024 12:13pm [facility] Work Phone: 1(869) 298-764602-26-2025 Evaluation note* Diagnosis Onset Date Resolution Status Admit Date Other chronic pain acute Febr2024 1:02pm Primary osteoarthritis of ri ght knee acute April 13 025 1:02pm Other chronic pain acute May 23, 2024 12:13pm Primary osteoarthritis of ri ght knee acute May 23, 2024 12:13pm Myofascial muscle pain acute 2024 1:35pm Other chronic pain acute June 1:35pm Primary osteoarthritis of ri ght knee acute June 20, 2024 1: 35pm [facility] Work Phone: 1(648) 239-273802-26-2025 Evaluation note* Diagnosis Onset Date Resolution Status Admit Date Other chronic pain acute Februa 2024 1:02pm Primary osteoarthritis of ri ght knee acute April 13 025 1:02pm Other chronic pain acute May 23, 2024 12:13pm Primary osteoarthritis of ri ght knee acute May 23, 2024 12:13pm Myofascial muscle pain acute Ma y 2024 1:35pm Other chronic pain acute June 1:35pm Primary osteoarthritis of ri ght knee acute June 20, 2024 1: 35pm Myofascial muscle pain acute Ma y 2024 2:03pm Other chronic pain acute June 302024 2:03pm [facility] Work Phone: 1(500) 840-843402-19-2025 History of Present illness Narrative* Jr. Sonja Saleh, DO - 04/06/2024 9:00 AM EST Images from the original note were not included. HISTORY OF PRESENT ILLNESS: EST PT Phuong Randhawa is an 63 y.o. @ female. (EST PT) - S/P (R) TKA 09/08/23 (~7 MONTHS) ; S/P MDP (02/02/24) XRAYS, W/ SUNRISE 12/21/23, 10/14/[address] (R) KNEE 02/19/24 - [address]. GUILLAUME LABS 11/09/23 @ [facility] (CBC / SED RATE / CRP) S/P MDP 10/14/23 FINISHED PT @[facility] (POST-OP) NO PAIN MGMT DENIES DOING HEP. S/P MDP - HAD TO DISCONTINUE D/T DUODENAL ULCER - NAUSEA / ABDOMINAL PAIN. PRESENTS IN KNEE SLEEVE - WEARING AT ALL TIMES - RELIEF WITH SUPPORT. NOTES SHE STANDS FOR LONG PERIODS THROUGHOUT THE DAY. DIFFUSE DISCOMFORT (MOSTLY SUPERIOR) THAT RADIATES LATERALLY INTO MID-BARTHOLOMEW. BURNING SENSATION ANTERIOR / SUPERIOR KNEE. ACHING WITH COLD WEATHER. ADMITS TINGLING. LATERAL NUMBNESS (SINCE SX) SWELLING IN KNEE DOWN TO CALF. ADMITS POPPING / BUCKLING. DENIES GRINDING. ICING / ELEVATING - WITH RELIEF. DENIES USING HEAT. NO TOPICALS. MOBIC DAILY. TYL ARTHRITIS - SOME RELIEF. NORCO PRN(DR. MCLAUGHLIN) - WITH RELIEF. ALLERGIES: Allergies Allergen Reactions Bee Venom Anaphylaxis Sulfa Antibiotics Swelling and Rash Erythromycin Rash Sulfamethoxazole-Trimethoprim Rash HOME MEDICATIONS: Current Outpatient Medications Medication Instructions amitriptyline (Elavil) 75 MG tablet 1 tablet, Oral, Nightly Brexpiprazole (Rexulti) 2 MG tablet Oral cyclobenzaprine (FLEXERIL) 10 mg, Oral, 3 times daily PRN diazePAM (VALIUM) 10 mg, Oral, 3 times daily PRN EPINEPHrine (Epipen) 0.3 MG/0.3ML injection syringe INJECT 1 (ONE) pen NEEDED Fiber-Lax 1,250 mg, Oral, Daily Hibiclens 4 % solution APPLY TO THE AFFECTED AREA(S) topically for a 1 time dose the morning OF surgery meloxicam (MOBIC) 15 mg, Oral, Daily methylPREDNISolone (Medrol Dospak) 4 MG tablets Follow schedule on package instructions methylPREDNISolone (Medrol Dospak) 4 MG tablets Follow schedule on package instructions omeprazole (PRILOSEC) 40 mg, Oral, 2 times daily oxybutynin XL (DITROPAN-XL) 15 mg, Oral, Daily, Do not crush, chew, or split. PARoxetine (PAXIL) 20 mg, Oral, Every morning sucralfate (CARAFATE) 1 g, Oral, 4 times daily before meals and nightly venlafaxine XR (EFFEXOR XR) 150 mg, Oral, 2 times daily, Do not crush or chew. zolpidem (AMBIEN) 10 mg, Oral, Nightly PHYSICAL EXAM: Knee Musculoskeletal Exam Gait Gait is normal. Antalgic: right Limp: right Inspection Leg length disparity: no discrepancy Right Erythema: none Effusion: none Edema: none Ecchymosis: none Deformity: none Alignment: normal Previous incision: anterior Incision: well-healed Inspection additional comments: Significant point tenderness to the superior lateral pole of the left patella consistent with possible nerve entrapment in scar tissue Does not appear to be quite as point tender as before. Palpation Right Right knee palpation is unremarkable. Increased warmth: none Masses: none Tenderness: none Range of Motion Right Right knee range of motion is normal and full. Active extension: 0 Passive extension: 0 Active flexion: 120 Passive flexion: 120 Strength Right Right knee strength is normal. Extension: 5/5. Flexion: 5/5. Instability Right Instability signs: none - stable Varus stress grade: normal Valgus stress grade: normal Neurovascular Right Right knee neurovascular exam is normal. Pulses - PT: normal Posterior tibial: 2+ Capillary refill: warm and well-perfused Special Signs Right Right knee special signs are normal. Patellar apprehension: none General Constitutional: appears stated age Labored breathing: no Psychiatric: normal mood and affect Neurological: alert Skin: intact Lymphadenopathy: none Vitals: There is no height or weight on file to calculate BMI. Tobacco Use: Medium Risk (04/06/2024) Patient History Smoking Tobacco Use: Former Smokeless Tobacco Use: Never Passive Exposure: Not on file Alcohol Use: Not At Risk (09/01/2023) AUDIT-C Frequency of Alcohol Consumption: Never Average Number of Drinks: Patient does not drink Frequency of Binge Drinking: Never IMAGING: Procedures Orders Placed This Encounter Procedures Ambulatory referral to Pain Medicine RIGHT KNEE PAIN S/P RT TKA Standing Status: Future Standing Expiration Date: 10/04/2024 Referral Priority: Routine Referral Type: Consultation Referral Reason: Specialty Services Required Referred to Provider: Luciano Reyes MD Requested Specialty: Pain Medicine Number of Visits Requested: 1 ASSESSMENT: ICD-10-CM 1. Nerve pain M79.2 2. History of right knee joint replacement Z96.651 Ambulatory referral to Pain Medicine 3. 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 We have recommended Dr. Reyes for evaluation/treatment. We discussed restrictions in her home exercise program. We'll see her back in 3 months. She denies night sweats, fevers, or any evidence of a significant lymphangitis. Questions answered in laymen terms at the bedside. The diagnosis, home exercise plan and any ongoing restrictions/ recommendations reviewed. If unable to be reached in office, I recommend evaluation at nearest Emergency Room if any symptoms worsened or new symptoms develop for requiring urgent evaluation. documented in [facility] encounter[facility] [id number] Telephone encounter Note* Telephone Encounter - KIRSTIE Rehman - 03/29/2024 6:[address] Saleh... her Last MDP was on 03/01/24, I loaded another medrol dose pack if you want to send in... [facility] Work Phone: 1(749) 202-535202-11-2025 Miscellaneous Notes* Telephone Encounter - KIRSTIE Rehman - 03/29/2024 6:[address] Saleh... her Last MDP was on 03/01/24, I loaded another medrol dose pack if you want to send in... * Telephone Encounter - Beata Rogers - 03/29/2024 2:59 PM EST Phuong called and said that she is having swelling in her RT TKA said that she was suppose to call and let us know so that Dr. Saleh can call her in a MDP [place] [facility] documented in this [facility]02-11-2025 Telephone encounter Note* Telephone Encounter - Beata Rogers - 03/29/2024 3:21 PM EST error [facility] [id number] Miscellaneous Notes* Telephone Encounter - Beaat Rogers - 03/29/2024 3:21 PM EST error documented in this [facility]02-11-2025 Telephone encounter Note* Telephone Encounter - Beata Rogers - 03/29/2024 2:59 PM EST Phuong called and said that she is having swelling in her RT TKA said that she was suppose to call and let us know so that Dr. Saleh can call her in a MDP [facility] [id number] Telephone encounter Note* Telephone Encounter - KIRSTIE Rehman - 03/01/2024 12:01 PM EST Rx loaded.. Dr. Saleh, can you send if you agree [id number] Miscellaneous Notes* Telephone Encounter - KIRSTIE Rehman - 03/01/2024 12:01 PM EST Rx loaded.. Dr. Saleh, can you send if you agree * Telephone Encounter - Genet Guillermo - 03/01/2024 11:29 AM EST Patient called stating her knee is swollen. She was told that when this happens a MDP packet can besent over to [facility] in [place]. documented in this encounterSaint [facility] [id number] Telephone encounter Note* Telephone Encounter - Genet Guillermo - 03/01/2024 11:29 AM EST Patient called stating her knee is swollen. She was told that when this happens a MDP packet can besent over to [facility] in [place]. [facility] [id number] History of Present illness Narrative* Terry Mclaughlin MD - 02/24/2024 1:46 PM ESTAssociated Problem(s): Class 2 severe obesity due to excess calories with serious comorbidity and body mass index (BMI) of 36.0 to 36.9 in adult (CMS/[facility]) Weight loss indicated. * Terry Mclaughlin MD - 02/24/2024 1:45 PM ESTAssociated Problem(s): Primary osteoarthritis of right knee Continued pain and problems standing. Follow with ortho. * Terry Mclaughlin MD - 02/24/2024 1:45 PM ESTAssociated Problem(s): Overflow incontinence of urine Worsening symptoms and increase oxybutynin. * Terry Mclaughlin MD - 02/24/2024 1:45 PM ESTAssociated Problem(s): MDD (major depressive disorder), recurrent episode, moderate (CMS/HCC) Symptoms worse with increased pain. Follow with psychiatry. * Terry Mclaughlin MD - 02/24/2024 1:44 PM ESTAssociated Problem(s): Lumbar spondylosis Pain worse and use norco PRN. * Terry Mclaughlin MD - 02/24/2024 1:43 PM ESTAssociated Problem(s): Annual physical exam Reviewed labs. Discussed proper diet and regular aerobic exercise. Need aerobic exercise 5-6 days aweek for 30 minutes at a time. Smaller portions and limit total calories. Cologuard normal August 2023. Tetanus every 10 years. Advised not to smoke. * Terry Mclaughlin MD - 02/24/2024 1:00 PM EST Images from the original note were not included. Subjective Patient ID: Phuong Randhawa is a 63 y.o. female who presents for Annual Exam. Presents for annual PE. Weight unchanged over the past year. Still having problems after right kneereplacement. Not able to walk or stand much due to pain. Not exercising. Tries to watch diet and eat healthy. Increased fruits and vegetables. Smaller portions and limits snacking. Tries to limit total daily calories. Reviewed labs. Seen by ortho for second opinion and CT ordered but read as normal. Talked about possible nerve block. Back pain worse and increased pain in low back and across top hips. Depression worse and upset with pain and poor outcomes after surgery. C/o urinary symptoms and frequent urgency. At times feels like not able to hold urine and worried will have accidents. On oxyb utynin but still symptoms. Review of Systems Respiratory: Negative for cough, [...] There is no guarding or rebound. Musculoskeletal: General: No swelling or tenderness. Cervical back: Neck supple. Right lower leg: No edema. Left lower leg: No edema. Skin: Findings: No erythema or rash. Neurological: General: No focal deficit present. Mental Status: She is alert and oriented to person, place, and time. Cranial Nerves: No cranial nerve deficit. Motor: No weakness. Gait: Gait normal. Assessment/Plan Problem List Items Addressed This Visit Primary osteoarthritis of right knee Continued pain and problems standing. Follow with ortho. MDD (major depressive disorder), recurrent episode, moderate (CMS/HCC) Symptoms worse with increased pain. Follow with psychiatry. Lumbar spondylosis Pain worse and use norco PRN. Relevant Medications HYDROcodone-acetaminophen ([place]) 5-325 MG tablet cyclobenzaprine (Flexeril) 10 MG tablet Overflow incontinence of urine Worsening symptoms and increase oxybutynin. Relevant Medications oxybutynin XL (Ditropan-XL) 15 MG 24 hr tablet Annual physical exam - Primary Reviewed labs. Discussed proper diet and regular aerobic exercise. Need aerobic exercise 5-6 days aweek for 30 minutes at a time. Smaller portions and limit total calories. Cologuard normal August 2023. Tetanus every 10 years. Advised not to smoke. documented in this [facility]12-20-2024 Telephone encounter Note* Telephone Encounter - Terry Mclaughlin MD - 02/05/2024 9:50 AM EST [facility] [id number] Miscellaneous Notes* Telephone Encounter - Terry Mclaughlin MD - 02/05/2024 9:50 AM EST documented in this [facility]12-17-2024 History of Present illness Narrative* Jr. Sonja Saleh, - 02/02/2024 11:15 AM EST Images from the original note were not included. HISTORY OF PRESENT ILLNESS: EST PT Phuong Randhawa is an 63 y.o. @ female. (EST PT) S/P (R) TKA 09/08/23 (21WKS) ; 4 WKS S/P MDP (01/06/24); PT DID NOT TAKE YET- PT THINKS [facility] START TAKING IT- NOTES SOME INCREASE SWELLING XRAYS, W/ SUNRISE 12/21/23 IN EPIC LABS 11/09/23 @ [facility] (CBC / SED RATE / CRP) S/P MDP 10/14/23 FINISHED PHYSICAL THERAPY @ [facility] ; POST-OP NO PAIN MGMT NOTES DISCOMFORT LATERAL/ANTERIOR KNEE- C/O ACHINESS- WEARS KNEE SLEEVE; HELPS WITH SUPPORT- INTERMITTENT SWELLING- PT ICES/ELEVATES-+BURNING SENSATION- +MOBIC/TYLENOL ARTHRITIS- +NORCO PRN PER DR MCLAUGHLIN - CONTINUES WORK RESTRICTIONS ALLERGIES: Allergies Allergen Reactions Bee Venom Anaphylaxis Sulfa Antibiotics Swelling and Rash Erythromycin Rash Sulfamethoxazole-Trimethoprim Rash HOME MEDICATIONS: Current Outpatient Medications Medication Instructions amitriptyline (Elavil) 75 MG tablet 1 tablet, Oral, Nightly Brexpiprazole (Rexulti) 2 MG tablet Oral cyclobenzaprine (Flexeril) 5 MG tablet 3 times daily PRN diazePAM (VALIUM) 10 mg, Oral, 3 times daily PRN EPINEPHrine (Epipen) 0.3 MG/0.3ML injection syringe INJECT 1 (ONE) pen NEEDED Fiber-Lax 1,250 mg, Oral, Daily Hibiclens 4 % solution APPLY TO THE AFFECTED AREA(S) topically for a 1 time dose the morning OF surgery meloxicam (MOBIC) 15 mg, Oral, Daily methylPREDNISolone (Medrol Dospak) 4 MG tablets Follow schedule on package instructions omeprazole (PRILOSEC) 40 mg, Oral, 2 times daily oxybutynin XL (DITROPAN XL) 10 mg, Oral, Daily, Do not crush, chew, or split. PARoxetine (PAXIL) 20 mg, Oral, Every morning sucralfate (CARAFATE) 1 g, Oral, 4 times daily before meals and nightly topiramate (Topamax) 100 MG tablet 2 times daily venlafaxine XR (EFFEXOR XR) 150 mg, Oral, 2 times daily, Do not crush or chew. zolpidem (AMBIEN) 10 mg, Oral, Nightly PHYSICAL EXAM: Knee Musculoskeletal Exam Gait Gait is normal. Antalgic: right Limp: right Inspection Leg length disparity: no discrepancy Right Erythema: none Effusion: none Edema: none Ecchymosis: none Deformity: none Alignment: normal Previous incision: anterior Incision: well-healed Inspection additional comments: Significant point tenderness to the superior lateral pole of the left patella consistent with possible nerve entrapment in scar tissue. Palpation Right Right knee palpation is unremarkable. Increased warmth: none Masses: none Tenderness: none Range of Motion Right Right knee range of motion is normal and full. Active extension: 0 Passive extension: 0 Active flexion: 120 Passive flexion: 120 Strength Right Right knee strength is normal. Extension: 5/5. Flexion: 5/5. Instability Right Instability signs: none - stable Varus stress grade: normal Valgus stress grade: normal Neurovascular Right Right knee neurovascular exam is normal. Pulses - PT: normal Posterior tibial: 2+ Capillary refill: warm and well-perfused Special Signs Right Right knee special signs are normal. Patellar apprehension: none General Constitutional: appears stated age Labored breathing: no Psychiatric: normal mood and affect Neurological: alert Skin: intact Lymphadenopathy: none Vitals: There is no height or weight on file to calculate BMI. Tobacco Use: Medium Risk (02/02/2024) Patient History Smoking Tobacco Use: Former Smokeless Tobacco Use: Never Passive Exposure: Not on file Alcohol Use: Not At Risk (09/01/2023) AUDIT-C Frequency of Alcohol Consumption: Never Average Number of Drinks: Patient does not drink Frequency of Binge Drinking: Never IMAGING: Procedures No orders of the defined types were placed in this encounter. ASSESSMENT: ICD-10-CM 1. Acute pain of right knee M25.561 PLAN: We have discussed her case at length. There is no evidence of ascending lymphangitis or infection. We have recommended desensitization exercises 5 minutes 3 times a day with tapping and circular massage. She will start her Medrol Dosepak. We will see her back in 7 weeks. If her symptoms persist or worsen, we may recommend aspiration and/or pain management. Questions answered in laymen terms at the bedside. The diagnosis, home exercise plan and any ongoing restrictions/ recommendations reviewed. If unable to be reached in office, I recommend evaluation at nearest Emergency Room if any symptoms worsened or new symptoms develop for requiring urgent evaluation. documented in this encounterSaint [facility] [id number] History of Present illness Narrative* Apolonia Solis, [place] - 01/06/2024 10:00 AM EST Images from the original note were not included. HISTORY OF PRESENT ILLNESS: EST PT Phuong Randhawa is an 63 y.o. @ female. (EST PT) S/P (R) TKA 09/08/23 (17WKS 1DAY) ; CONTINUES OFF WORK - SCHEDULED TO RETURN 01/11/24 XRAYS, W/ SUNRISE 12/21/23 IN EPIC LABS 11/09/23 @ [facility] (CBC / SED RATE / CRP) S/P MDP 10/14/23 FINISHED PHYSICAL THERAPY @ [facility] ; POST-OP NO PAIN MGMT CONTINUES TO HAVE CONSTANT ACHINESS ; OCCASIONAL STINGING / BURNING. NOTES GOOD ROM ; SOME INSTABILITY / WEAKNESS - NO LONGER WEARING BRACE. SOME SWELLING - ICING / ELEVATING. TAKING MOBIC DAILY / TYLENOL ARTHRITIS ; HAS NORCO PRN LBP (DR MCLAUGHLIN). ALLERGIES: Allergies Allergen Reactions Bee Venom Anaphylaxis Sulfa Antibiotics Swelling and Rash Erythromycin Rash Sulfamethoxazole-Trimethoprim Rash HOME MEDICATIONS: Current Outpatient Medications Medication Instructions amitriptyline (Elavil) 75 MG tablet 1 tablet, Oral, Nightly Brexpiprazole (Rexulti) 2 MG tablet Oral cyclobenzaprine (Flexeril) 5 MG tablet 3 times daily PRN diazePAM (VALIUM) 10 mg, Oral, 3 times daily PRN EPINEPHrine (Epipen) 0.3 MG/0.3ML injection syringe INJECT 1 (ONE) pen NEEDED Fiber-Lax 1,250 mg, Oral, Daily Hibiclens 4 % solution APPLY TO THE AFFECTED AREA(S) topically for a 1 time dose the morning OF surgery meloxicam (MOBIC) 15 mg, Oral, Daily methylPREDNISolone (Medrol Dospak) 4 MG tablets Follow schedule on package instructions omeprazole (PRILOSEC) 40 mg, Oral, 2 times daily oxybutynin XL (DITROPAN XL) 10 mg, Oral, Daily, Do not crush, chew, or split. PARoxetine (PAXIL) 20 mg, Oral, Every morning sucralfate (CARAFATE) 1 g, Oral, 4 times daily before meals and nightly topiramate (Topamax) 100 MG tablet 2 times daily venlafaxine XR (EFFEXOR XR) 150 mg, Oral, 2 times daily, Do not crush or chew. zolpidem (AMBIEN) 10 mg, Oral, Nightly PHYSICAL EXAM: Knee Musculoskeletal Exam Gait Gait is normal. Inspection Leg length disparity: no discrepancy Right Erythema: none Effusion: none Edema: none Ecchymosis: none Deformity: none Alignment: normal Previous incision: anterolateral Incision: well-healed Palpation Right Right knee palpation is unremarkable. Increased warmth: none Masses: none Palpation additional comments: +pain with palpation over superior pole of patella that has slightlyimproved from prior examination Range of Motion Right Right knee range of motion is normal and full. Strength Right Right knee strength is normal. Extension: 5/5. Flexion: 5/5. Instability Right Instability signs: none - stable Varus stress grade: normal Valgus stress grade: normal Neurovascular Right Right knee neurovascular exam is normal. Pulses - PT: normal Posterior tibial: 2+ Capillary refill: warm and well-perfused Special Signs Right Right knee special signs are normal. Patellar apprehension: none Vitals: There is no height or weight on file to calculate BMI. Tobacco Use: Medium Risk (12/29/2023) Received from [email or web address] Patient History Smoking Tobacco Use: Former Smokeless Tobacco Use: Never Passive Exposure: Not on file Alcohol Use: Not At Risk (09/01/2023) AUDIT-C Frequency of Alcohol Consumption: Never Average Number of Drinks: Patient does not drink Frequency of Binge Drinking: Never IMAGING: Procedures No orders of the defined types were placed in this encounter. ASSESSMENT: ICD-10-CM 1. Acute pain of right knee M25.561 methylPREDNISolone (Medrol Dospak) 4 MG tablets 2. History of right knee joint replacement Z96.651 PLAN: We have answered all the patients questions and explained the patients condition, decision making and plan including the risks and benefits associated with said plan in layman''s terms in a language the patient could understand easily. If patient''s symptoms significantly worsen and they cannot get a hold of us or their family physician, we have recommended that the patient proceed to the nearest emergency department (room). Dr. Saleh obtained history and examined the patient, I am acting as scribe for Dr. Saleh/[place], PLAN: We have reviewed prior (R) knee xrays / labs. After examination today we are recommending a MDP in attempt to decrease the inflammation. She may RTW on Wednesday 01/10 with restrictions of 10 minute seated break every 2 hours pending follow up. We have discussed her HEP and restrictions and willsee her back in 6 weeks to reassess her right knee strength / ROM. Sonja Saleh D.O. documented in this encounterSaint Mary's Hospital of Blue [id number] Telephone encounter Note* Telephone Encounter - Kevin Gómez NP - 12/22/2023 11:41 AM EST Called and discussed with patient. She can use a compression knee sleeve if she would like but I donot recommend she use her off cement loader brace. She will call back with any issues. [facility] Work Phone: [phone] 394-149211-05-2024 Miscellaneous Notes* Telephone Encounter - Kevin Gómez NP - 12/22/2023 11:41 AM EST Called and discussed with patient. She can use a compression knee sleeve if she would like but I donot recommend she use her off cement loader brace. She will call back with any issues. * Telephone Encounter - Mei Alba - 12/22/2023 10:08 AM EST Patient called asking if she should still wear her brace her right knee? documented in this encounterSaint Mary's Hospital of Blue [id number] Telephone encounter Note* Telephone Encounter - Mei Alba - 12/22/2023 10:08 AM EST Patient called asking if she should still wear her brace her right knee? [facility] [id number] History of Present illness Narrative* Jr. Sonja Saleh, - 12/21/2023 1:45 PM EST Images from the original note were not included. HISTORY OF PRESENT ILLNESS: EST PT Phuong Randhawa is an 63 y.o. @ female. EST PT S/P RT TKA 09/08/23 (14WKS 6DAYS)- C/O PAIN - PT HAS QUESTIONS ABOUT HER POST OP XRAY XRAY RT KNEE WITH SUNRISE TODAY EPIC 12/21/23 XRAY RT KNEE 10/14/23 EPIC MDP 10/14/23 PT [facility] (CBC/SEDRATE/CRP) 11/09/23 [facility] C/O PAIN- CONTINUES PT [facility]; GOOD ROM/STRENGTH- CONSTANT PAIN ABOVE PATELLA- PAIN CAN BE MEDIAL KNEE- SOME SWELLING- WEARING COMPRESSION STOCKING AND KNEE SLEEVE- +TYLENOL ARTHRITIS/NORCO (PER DR MCLAUGHLIN) - +WAKES OCCASIONALLY ALLERGIES: Allergies Allergen Reactions Bee Venom Anaphylaxis Sulfa Antibiotics Swelling and Rash Erythromycin Rash Sulfamethoxazole-Trimethoprim Rash HOME MEDICATIONS: Current Outpatient Medications Medication Instructions amitriptyline (Elavil) 75 MG tablet 1 tablet, Oral, Nightly Brexpiprazole (Rexulti) 2 MG tablet Oral cyclobenzaprine (Flexeril) 5 MG tablet 3 times daily PRN diazePAM (VALIUM) 10 mg, Oral, 3 times daily PRN EPINEPHrine (Epipen) 0.3 MG/0.3ML injection syringe INJECT 1 (ONE) pen NEEDED Fiber-Lax 1,250 mg, Oral, Daily Hibiclens 4 % solution APPLY TO THE AFFECTED AREA(S) topically for a 1 time dose the morning OF surgery HYDROcodone-acetaminophen ([place]) 5-325 MG tablet 1 tablet, Oral, 4 times daily PRN meloxicam (MOBIC) 15 mg, Oral, Daily omeprazole (PRILOSEC) 40 mg, Oral, 2 times daily oxybutynin XL (DITROPAN XL) 10 mg, Oral, Daily, Do not crush, chew, or split. PARoxetine (PAXIL) 20 mg, Oral, Every morning sucralfate (CARAFATE) 1 g, Oral, 4 times daily before meals and nightly topiramate (Topamax) 100 MG tablet 2 times daily venlafaxine XR (EFFEXOR XR) 150 mg, Oral, 2 times daily, Do not crush or chew. zolpidem (AMBIEN) 10 mg, Oral, Nightly PHYSICAL EXAM: Knee Musculoskeletal Exam Gait Gait is normal. Inspection Leg length disparity: no discrepancy Right Erythema: none Effusion: none Edema: none Ecchymosis: none Deformity: none Alignment: normal Previous incision: anterolateral Incision: well-healed Palpation Right Right knee palpation is unremarkable. Increased warmth: none Masses: none Palpation additional comments: +pain with palpation over superior pole of patella Range of Motion Right Right knee range of motion is normal and full. Strength Right Right knee strength is normal. Extension: 5/5. Flexion: 5/5. Instability Right Instability signs: none - stable Varus stress grade: normal Valgus stress grade: normal Neurovascular Right Right knee neurovascular exam is normal. Pulses - PT: normal Posterior tibial: 2+ Capillary refill: warm and well-perfused Special Signs Right Right knee special signs are normal. Patellar apprehension: none Vitals: There is no height or weight on file to calculate BMI. Tobacco Use: Medium Risk (12/21/2023) Patient History Smoking Tobacco Use: Former Smokeless Tobacco Use: Never Passive Exposure: Not on file Alcohol Use: Not At Risk (09/01/2023) AUDIT-C Frequency of Alcohol Consumption: Never Average Number of Drinks: Patient does not drink Frequency of Binge Drinking: Never IMAGING: XR knee 3 views right Imaging Result: AP and lateral of right knee showed surgical position and alignment of prosthetic components without evidence of loosening or wear to the femoral, tibial, or patellar components. The alignment appeared to be anatomic. There was no evidence of accelerated or asymmetric wear to the patellar button ortibial tray. There was no evidence of fracture and/or dislocation. Small old avulsion of the superior pole of patella. Impression: Unremarkable right total knee arthroplasty. Procedures Orders Placed This Encounter Procedures General supply request: (R) knee ; hx of (R) TKA - 5 year handicap placard Order Specific Question: Details for supply request: Answer: (R) knee ; hx of (R) TKA - 5 year handicap placard XR knee 3 views right Order Specific Question: Reason for exam: Answer: PAIN ASSESSMENT: ICD-10-CM 1. Acute pain of right knee M25.561 XR knee 3 views right General supply request: (R) knee ; hx of (R) TKA - 5 year handicap placard 2. History of right knee joint replacement Z96.651 3. Arthralgia of right knee M25.561 General supply request: (R) knee ; hx of (R) TKA - 5 year handicap placard PLAN: We have answered all the patients questions and explained the patients condition, decision making and plan including the risks and benefits associated with said plan in layman''s terms in a language the patient could understand easily. If patient''s symptoms significantly worsen and they cannot get a hold of us or their family physician, we have recommended that the patient proceed to the nearest emergency department (room). Dr. Saleh obtained history and examined the patient, I am acting as scribe for Dr. Saleh/[facility], PLAN: We have discussed (R) knee xrays with patient at bedside : appears to be an old avulsion fx noted to superior pole of patella. Patient admits that her right knee was doing better prior to RTW than it is doing today. We are recommending that off work, patient is agreeable to one week at this time - she will contact our office for additional time off if relief is noted with time off. We have discussed avoiding motions including, but not limited to : no standing / walking longer than 10 minutes without a seated break, no deep squatting. We have discussed her HEP and restrictions and will see her back in 4 weeks to reassess her right knee, if exam warrants we may recommend a cortisone injection at that time. Sonja Saleh D.O. documented in this encounterSaint Mary's Hospital of Blue [id number] History of Present illness Narrative* Tabatha Yesika Onofre, PT - 12/16/2023 1:00 PM EDT Physical Therapy Physical Therapy Treatment Note Patient Name: Phuong Randhawa Today's Date: 12/16/2023 Encounter Diagnoses Name Primary? Postoperative pain of right knee Yes Status post right knee replacement Presence of artificial knee joint, right Visit Number / (19 plus 7 used in home) Timed code Treatment: 53 Minutes Total Treatment Time: 63 Minutes Time In: 1250 Time Out: 1353 Date of Surgery: 09/08/2023 with same day discharge from hospital. Current deficits: Difficulty with all mobility secondary to recent right TKA. Ambulation: antalgic gait pattern on right LE. Assistive devices: FWW, cane. ADL and IADL: Independent. Home Environment: Pt lives with her mom in a mobile home with 3-4 steps to enter. Has tub/shower combo. Small dog in home. Precautions: WBAT Right LE; Right TKA protocol. Pain Management: Pt. Reports of good knee ROM but continues to have 1-4/10 knee pain depending on her activity throughout the day. Pt is frustrated she continues to have knee pain with daily work tasks. Objective General Visit Information: Passive ROM: Right knee 10 to 112 degrees. Joint play: hypomobile. Manual muscle testing: Right knee flexion/extension: 3/5. Palpation: Minimal warmth upon palpation,consistent with post-operative conditions. Surgical incision observed and intact with sterile strips; no drainage and left open to air. Special tests: Negative Giovanna Sign. Functional Mobility: Bed Mobility: mod indep Sit to Stand: mod indep Stair Negotiation: SBA Ambulation: Patient is ambulating with FWW, reciprocal gait pattern; good heel to toe gait pattern;SBA. Pt ambulated approx 300' x 1 with slow alireza. Limited knee flexion during swing phase. Tinetti Gait and Balance Assessment: Sitting balance: Steady, safe = 1. Rises from chair: Able, uses arms to help = 1. Attempts to rise: Able, requires > 1 attempt = 1. Immediate standing balance (first 5 seconds): Steady but uses walker or other support = 1. Standing balance: Steady but uses walker or other support = 1. Nudged: Staggers, grabs, catches self = 1. Eyes closed: Steady = 1. Turning 360 degrees: Discontinuous steps = 0 , Unsteady (grabs, staggers) = 0. Sitting down: Uses arms or not a smooth motion = 1. Balance Score: 8/16. Indication of gait: No hesitancy = 1. Step of length and height: Step to = 0. Foot clearance: L foot clears floor = 1 , R foot clears floor = 1. Step symmetry: Right and left step length no equal = 0. Step continuity: Stopping or discontinuity between steps = 0. Path: Mild/moderate deviation or uses w/ aid = 1. Trunk: No sway but flex knees or back or uses arms for stability = 1. Walking time: Heels apart = 0. Gait score: 5/12. Total Score = Balance + Gait 13/28. Tinetti tool score: < = 18 High. Physical Education Intervention Manual Therapy: (10 minutes) Delivered manual patella glides to reduce pain, and Extension manual overpressure to improve knee ext. CFM to distal quad tendon to reduce tone. Therapeutic Exercise (28 minutes): Instructed Pt through ther and flex ex per grid to improve R knee ROM and strength needed for daily function. Knee extension stretch to improve restricted ROM. Nustep ( PRN) Neuro: (PRN) KT tape (6 squares) to R anterior knee to in upside down Y , wrapping around patella fashion to facilitate quad activation Therapeutic Activity (15 Minutes supervised): Performed to improve ease with functional movements needed for daily activities. Modalities: (0 mins ) post session CP to R knee to reduce inflammation and muscle soreness Assessment & Plan Assessment Visit # 7 of 8 visits, total 20 visits post right TKA performed on 09-08-[address] Saleh. 11 weeksP.O. R knee min edema, incision healed well, pt. Demonstrates 0-125 degrees of knee ROM, good ROM but knee strength is still limited. Good tolerance with all ther ex today and perform all exercises at 30 reps with no adverse effects. Barriers to therapy: Pain Prognosis: good Goals Short Term Goals Goal 1 : Patient will be independent with HEP with good compliance and independence. Goal 2 : Patient will demonstrate 5-90 degrees of passive range of motion of right knee flexion. Goal 3 : Patient will ambulate >6 minutes modified independently with wheeled walker with good reciprocal gait pattern. Goal 4 : Patient will demonstrate all sit< >stand transfers and supine< >sit bed mobility, modified independent with no cues for proper sequencing. Goal 5 : Patient will ascend/descend 5-6 steps with AD with supervision, step to gait pattern. Longterm Goals Goal 1 : Patient will demonstrate 0-110 degrees of active right knee flexion in order to improve indpendence with ambulation up and down steps. NOT MET Goal 2 : Patient will demonstrate 4+/5 or better right knee strength in order to safely return to activities of interest. NOT MET Goal 3 : Patient will ambulate community distances on even and uneven surfaces, independently with no AD, normalized gait pattern and < 1/10 report of pain in right knee. NOT MET Goal 4 : Pt will ascend/descend >12 steps with railing with reciprical gait pattern independently. Goal 5 : Patient will demonstrate good static and dynamic standing balance for >15 mintues without LOB or increase in knee pain.NOT MET Goal 6 : Pt will improve Tinetti Balance test to 28/28 to indicate no fall risk. NOT MET Plan Planned modality interventions: cryotherapy Planned therapy interventions: bed mobility training, dressing changes, functional ROM exercises, gait training, home exercise program, manual therapy, neuromuscular re-education, soft tissue mobilization, strengthening, stretching, therapeutic activities and transfer training Frequency: 1-3x/week. Duration in weeks: 12 Treatment plan discussed with: patient Plan details: Educated to continue icing and elevating. Pt doing well this date. documented in this encounterSaint Mary's Hospital of Blue [id number] History of Present illness Narrative* Tabatha Rondon Maria Estherjennifer, PT - 12/03/2023 1:00 PM EDT Physical Therapy Physical Therapy Treatment Note Patient Name: Phuong Randhawa Today's Date: 12/03/2023 Encounter Diagnoses Name Primary? Postoperative pain of right knee Yes Status post right knee replacement Presence of artificial knee joint, right Visit Number 4/8 (16 plus 7 used in home) Timed code Treatment: 53 Minutes Total Treatment Time: 53 Minutes Time In: 1300 Time Out: 1353 Date of Surgery: 09/08/2023 with same day discharge from hospital. Current deficits: Difficulty with all mobility secondary to recent right TKA. Ambulation: antalgic gait pattern on right LE. Assistive devices: FWW, cane. ADL and IADL: Independent. Home Environment: Pt lives with her mom in a mobile home with 3-4 steps to enter. Has tub/shower combo. Small dog in home. Precautions: WBAT Right LE; Right TKA protocol. Pain Management: Pt. Continues to report of knee pain and swelling throughout the day. Pain is 1/10while taking tyenol but 6-7/10 when not taking medication. Objective General Visit Information: Passive ROM: Right knee 10 to 112 degrees. Joint play: hypomobile. Manual muscle testing: Right knee flexion/extension: 3/5. Palpation: Minimal warmth upon palpation,consistent with post-operative conditions. Surgical incision observed and intact with sterile strips; no drainage and left open to air. Special tests: Negative Giovanna Sign. Functional Mobility: Bed Mobility: mod indep Sit to Stand: mod indep Stair Negotiation: SBA Ambulation: Patient is ambulating with FWW, reciprocal gait pattern; good heel to toe gait pattern;SBA. Pt ambulated approx 300' x 1 with slow alireza. Limited knee flexion during swing phase. Tinetti Gait and Balance Assessment: Sitting balance: Steady, safe = 1. Rises from chair: Able, uses arms to help = 1. Attempts to rise: Able, requires > 1 attempt = 1. Immediate standing balance (first 5 seconds): Steady but uses walker or other support = 1. Standing balance: Steady but uses walker or other support = 1. Nudged: Staggers, grabs, catches self = 1. Eyes closed: Steady = 1. Turning 360 degrees: Discontinuous steps = 0 , Unsteady (grabs, staggers) = 0. Sitting down: Uses arms or not a smooth motion = 1. Balance Score: 16. Indication of gait: No hesitancy = 1. Step of length and height: Step to = 0. Foot clearance: L foot clears floor = 1 , R foot clears floor = 1. Step symmetry: Right and left step length no equal = 0. Step continuity: Stopping or discontinuity between steps = 0. Path: Mild/moderate deviation or uses w/ aid = 1. Trunk: No sway but flex knees or back or uses arms for stability = 1. Walking time: Heels apart = 0. Gait score: 06/27. Total Score = Balance + Gait . Tinetti tool score: < = 18 High. Subjective Is currently wearing knee brace. Pt reported doing HEP daily while away from therapy. Pt is off work again, until next Thursday, full shifts. No adverse effects from last session. Pt did report kneeling on knee over the weekend w/ a lot of pain. She was able to get up with assistance, no issues following. Physical Education Intervention Manual Therapy: (12 minutes) Delivered manual patella glides to reduce pain, and Extension manual overpressure to improve knee ext. Therapeutic Exercise (26 minutes): Instructed Pt through ther and flex ex per grid to improve R knee ROM and strength needed for daily function. Knee extension stretch to improve restricted ROM. Nustep ( PRN) Neuro: (PRN) KT tape (6 squares) to R anterior knee to in upside down Y , wrapping around patella fashion to facilitate quad activation Therapeutic Activity (15 Minutes supervised): Performed to improve ease with functional movements needed for daily activities. Modalities: (0 mins ) post session CP to R knee to reduce inflammation and muscle soreness Assessment & Plan Assessment Visit # 4 of 8 visits, total 16 visits post right TKA performed on 09-08-[address] Saleh. 11 weeksP.O. R knee min edema, incision healed well, pt. Demonstrates 0-125 degrees of knee ROM, good ROM but knee strength is still limited. Wears knee brace to help decrease knee pain/swelling. Walks with decreased stride length. Pt. Educated to practice increasing her stride length to help return to PLOF. Recommend to continue PT to help improve knee strength. Recommend 2x a week for 6 more weeks focusing on quad strength and amb with no AD Barriers to therapy: Pain Prognosis: good Goals Short Term Goals Goal 1 : Patient will be independent with HEP with good compliance and independence. Goal 2 : Patient will demonstrate 5-90 degrees of passive range of motion of right knee flexion. Goal 3 : Patient will ambulate >6 minutes modified independently with wheeled walker with good reciprocal gait pattern. Goal 4 : Patient will demonstrate all sit< >stand transfers and supine< >sit bed mobility, modified independent with no cues for proper sequencing. Goal 5 : Patient will ascend/descend 5-6 steps with AD with supervision, step to gait pattern. Longterm Goals Goal 1 : Patient will demonstrate 0-110 degrees of active right knee flexion in order to improve indpendence with ambulation up and down steps. NOT MET Goal 2 : Patient will demonstrate 4+/5 or better right knee strength in order to safely return to activities of interest. NOT MET Goal 3 : Patient will ambulate community distances on even and uneven surfaces, independently with no AD, normalized gait pattern and < 1/10 report of pain in right knee. NOT MET Goal 4 : Pt will ascend/descend >12 steps with railing with reciprical gait pattern independently. Goal 5 : Patient will demonstrate good static and dynamic standing balance for >15 mintues without LOB or increase in knee pain.NOT MET Goal 6 : Pt will improve Tinetti Balance test to 28/28 to indicate no fall risk. NOT MET Plan Planned modality interventions: cryotherapy Planned therapy interventions: bed mobility training, dressing changes, functional ROM exercises, gait training, home exercise program, manual therapy, neuromuscular re-education, soft tissue mobilization, strengthening, stretching, therapeutic activities and transfer training Frequency: 1-3x/week. Duration in weeks: 12 Treatment plan discussed with: patient Plan details: Educated to continue icing and elevating. Pt doing well this date. documented in this encounterSaint Mary's Hospital of Blue [id number] Telephone encounter Note* Telephone Encounter - Kevin Gómez NP - 11/30/2023 1:09 PM EDT That's fine, we can provide her a note with those restrictions. [facility] Work Phone: [phone]) 154-689510-14-2024 Miscellaneous Notes* Telephone Encounter - Kevin Gómez NP - 11/30/2023 1:09 PM EDT That's fine, we can provide her a note with those restrictions. * Telephone Encounter - Mei Alba - 11/30/2023 12:59 PM EDT Patient called asking for a work note stating she is going back to work today. She would like to beable to sit every 2hrs for 10 min documented in this encounterSaint Mary's Hospital of Blue [id number] Telephone encounter Note* Telephone Encounter - Mei lAba - 11/30/2023 12:59 PM EDT Patient called asking for a work note stating she is going back to work today. She would like to beable to sit every 2hrs for 10 min [facility] [id number] History of Present illness Narrative* Jr. Sonja Saleh DO - 11/23/2023 1:30 PM EDT HISTORY OF PRESENT ILLNESS: POST OP PT Phuong Randhawa is an 63 y.o. @ female. EST PT S/P RT TKA 09/08/23 (10WKS 6DAYS)- HERE FOR LAB RESULTS (CRP/SEDRATE/CBC) 11/09/23 [facility]-PT STATES DR MCLAUGHLIN IS SENDING HER FOR ADDITIONAL LABS; STATES SHE IS TIRED ALL THE TIME XRAY RT KNEE 10/14/23 EPIC MDP 10/14/23 PT [facility] (CBC/SEDRATE/CRP) 11/09/23 [facility] C/O GLOBAL PAIN; WORSE ANTERIOR KNEE- +SWELLING- WEARING SACHA HOSE ON RT LEG- WEARS KNEE SLEEVE; NOTPRESENT IN IT TODAY- SOME INSTABILITY - PT ICES/ELEVATES- +TYLENOL ARTHRITIS - CURRENTLY OFF WORK REVIEW OF SYSTEMS: General: Denies fever, fatigue or weight loss Lungs: Denies SOB Cardio: Denies chest pain GI: Denies indigestion or abdominal pain Neuro: Denies numbness or tingling, denies new onset paralysis Musculoskeletal: ( see note) PHYSICAL EXAM: Right Ankle Exam Swelling: none Right Knee Exam Right knee exam is normal. Muscle Strength The patient has normal right knee strength. Tenderness Right knee tenderness location: tenderness to quad tendon insertion on patella. no pain with resited extension. Range of Motion Extension: 10 Right knee flexion: 95. Tests Varus: negative Valgus: negative Other Erythema: absent Scars: present (Well healed, no drainage, no erythema) Sensation: normal Pulse: present Swelling: mild Effusion: no effusion present Comments: Operative lower extremity was noted to be neurovascularly intact. Patient was able to motor feet, toes and ankles in all anatomic planes bilaterally with 5 out of 5 strength. Operative knee's patellar tracking was optimal and quad 5/5 no pain on stressing. Ham 4-/5 strength with pain to an terior superior knee. There was no varus valgus, anterior-posterior, or rotatory instability noted to the operative knee. Swelling was well controlled, patella was not ballotable and compartments were soft to the operative lower extremity. Dorsalis pedis and posterior tibial pulses were present andequal bilaterally. There was no evidence of infection or ascending lymphangitis to operative lower extremity. Sensation to light touch was intact to all dermatomes to bilateral lower extremities. Negative Homans and negative Efrem were noted bilaterally to lower extremities. Incision was healing without evidence of infection XR knee 1 or 2 views right Imaging Result: AP and lateral of right knee showed surgical position and alignment of prosthetic components without evidence of loosening or wear to the femoral, tibial, or patellar components. The alignment appeared to be anatomic. There was no evidence of accelerated or asymmetric wear to the patellar button or tibial tray. There was no evidence of fracture and/or dislocation. Impression: Unremarkable right total knee arthroplasty. Procedures Orders Placed This Encounter Procedures Ambulatory referral to Physical Therapy Kirti Ireland ; Please call patient to schedule, thank you Increase strength / ROM, decrease pain (R) knee s/p (R) knee Standing Status: Future Standing Expiration Date: 05/23/2024 Referral Priority: Routine Referral Type: Consultation Referral Reason: Consult and Treat Referred to Provider: Tbaatha Onofre PT Requested Specialty: Physical Therapy Number of Visits Requested: 1 ASSESSMENT: ICD-10-CM 1. S/P TKR (total knee replacement), right Z96.651 Ambulatory referral to Physical Therapy 2. Primary osteoarthritis of right knee M17.11 Ambulatory referral to Physical Therapy PLAN: We have answered all the patients questions and explained the patients condition, decision making and plan including the risks and benefits associated with said plan in layman''s terms in a language the patient could understand easily. If patient''s symptoms significantly worsen and they cannot get a hold of us or their family physician, we have recommended that the patient proceed to the nearest emergency department (room). Dr. Saleh obtained history and examined the patient, I am acting as scribe for Dr. Saleh/isidoro, PLAN: we have reviewed prior (R) knee xrays and discussed lab results with patient at bedside : negative. She denies s/s of infection inclluding, but not limited to : no night sweats, fevers. After examination of her right knee today we are recommending that she resume with formal physical therapy.We are recommending that she continue to ice / elevate 3x/day for 10 minutes. We have discussed herHEP and restrictions and will see her back in 4 weeks to reassess her right knee strength / ROM, wewill also review additional labs that Dr. Mclaughlin ordered that she is planning on having done todayat [facility]. Sonja Saleh D.O. documented in this encounterSaint Mary's Hospital of Blue [id number] History of Present illness Narrative* Terry Mclaughlin MD - 11/19/2023 12:01 PM EDTAssociated Problem(s): Primary osteoarthritis of right knee Continued pain and problems standing. Follow with ortho. * Terry Mclaughlin MD - 11/19/2023 11:59 AM EDTAssociated Problem(s): Fatigue Severe symptoms after standing and likely related to recent surgery. Check labs. * Terry Mclaughlin MD - 11/19/2023 11:59 AM EDTAssociated Problem(s): Lightheaded Severe symptoms after standing and likely related to recent surgery. Check labs. * Terry Mclaughlin MD - 11/19/2023 11:59 AM EDTAssociated Problem(s): Overflow incontinence of urine Worsening urinary symptoms and try ditropan. * Terry Mclaughlin MD - 11/19/2023 11:59 AM EDTAssociated Problem(s): Postoperative pain of right knee Continued pain and problems standing. Follow with ortho. * Terry Mclaughlin MD - 11/19/2023 10:30 AM EDT Images from the original note were not included. Subjective Patient ID: Phuong Randhawa is a 63 y.o. female who presents for Dizziness (Feels like she is going to pass out). C/o lightheaded and fatigue for past week. Denies motion or spinning, not having vertigo. Notice symptoms triggered if standing prolonged. No symptoms with changing positions or sitting then standing. If up and walking feels well. Notice if stand for more than 10 minutes will start to have symptomsand feels like needs to sit or will pass out. Right TKA 09/07 and having problems. Increased pain inknee. Still icing and using brace. In PT for weeks but stopped. Returned to work 3 weeks ago and initially on 4 hour shifts then went to 6 hour days. Last week started 8 hour shifts and symptoms started. C/o severe fatigue and no energy. C/o urinary symptoms and requests ditropan. Feels urge to void and when stands to go bathroom will empty bladder. Mild symptoms for years but getting worse. Review of Systems Respiratory: Negative for cough, [...] pain of right knee Continued pain and problems standing. Follow with ortho. Lightheaded - Primary Severe symptoms after standing and likely related to recent surgery. Check labs. Relevant Orders TSH W/REFLEX TO FT4 Fatigue Severe symptoms after standing and likely related to recent surgery. Check labs. Relevant Orders TSH W/REFLEX TO FT4 Encounter for long-term (current) use of medications Relevant Orders Basic metabolic panel CBC and differential Hepatic function panel Overflow incontinence of urine Worsening urinary symptoms and try ditropan. Relevant Medications oxybutynin XL (Ditropan XL) 10 MG 24 hr tablet documented in this encounterSaint Mary's Hospital of Blue [id number] Telephone encounter Note* Telephone Encounter - Chaparrita Watts - 11/13/2023 11:[address] Delfino Juarez has put PT on-hold; if a call is received per patient notify to contact Dr. Saleh's office. [facility] [id number] Miscellaneous Notes* Telephone Encounter - Chaparrita Watts - 11/13/2023 11:[address] Delfino Juarez has put PT on-hold; if a call is received per patient notify to contact Dr. Saleh's office. * Telephone Encounter - Chaparrita Watts - 11/12/2023 1:51 PM EDT 6 visits out to 01/04/24 authorized. documented in this encounterSaint Mary's Hospital of Blue [id number] Telephone encounter Note* Telephone Encounter - Chaparrita Watts - 11/12/2023 1:51 PM EDT 6 visits out to 01/04/24 authorized. [facility] [id number] Telephone encounter Note* Telephone Encounter - Mei Alba - 11/11/2023 12:18 PM EDT Patient called asking for a work note that would let her sit every 20 minutes or so. Stating that Dr. Saleh asked her if she wanted to be off work ,which she is unable to do that. Stats that she stands for eight hrs and would like some kind of relief . [place] [id number] Miscellaneous Notes* Telephone Encounter - Mei Alba - 11/11/2023 12:18 PM EDT Patient called asking for a work note that would let her sit every 20 minutes or so. Stating that Dr. Saleh asked her if she wanted to be off work ,which she is unable to do that. Stats that she stands for eight hrs and would like some kind of relief . documented in this encounterSaint Mary's Hospital of Blue [id number] History of Present illness Narrative* Jr. Sonja Saleh, DO - 11/09/2023 2:00 PM EDT Images from the original note were not included. HISTORY OF PRESENT ILLNESS: POST OP PT Phuong Randhawa is an 63 y.o. @ female. EST PT; MOST RECENT VISIT WITH [facility]- S/P RT TKA 09/08/23 (8WKS 6DAYS)- S/P GRADUAL RTW; PT STARTS 6HRS TODAY BUT HAS BEEN DOING 4HRS PRIOR - S/P DRY NEEDLING KT TAPING; MINIMAL RELIEF XRAY RT KNEE 10/14/23 EPIC MDP 10/14/23 PT [facility] [place] PT NOTES PAIN SINCE RETURNING TO WORK- FATIGUES EASILY- PT STATES SHE HAS TO SIT DURING HER SHIFT- PAIN MOVES AROUND- +SWELLING- SOME LOCKING- PT ICES/ELEVATES - +TYLENOL ARTHRITIS REVIEW OF SYSTEMS: General: Denies fever, fatigue or weight loss Lungs: Denies SOB Cardio: Denies chest pain GI: Denies indigestion or abdominal pain Neuro: Denies numbness or tingling, denies new onset paralysis Musculoskeletal: ( see note) PHYSICAL EXAM: Right Ankle Exam Swelling: none Right Knee Exam Right knee exam is normal. Muscle Strength The patient has normal right knee strength. Tenderness Right knee tenderness location: tenderness to quad tendon insertion on patella. no pain with resited extension. Range of Motion Extension: 0 Right knee flexion: 125, painless PROM. Tests Varus: negative Valgus: negative Other Erythema: absent Scars: present (Well healed, no drainage, no erythema) Sensation: normal Pulse: present Swelling: mild Effusion: no effusion present Comments: Operative lower extremity was noted to be neurovascularly intact. Patient was able to motor feet, toes and ankles in all anatomic planes bilaterally with 5 out of 5 strength. Operative knee's patellar tracking was optimal and quad 5/5 no pain on stressing. Ham 4-/5 strength with pain to an terior superior knee. There was no varus valgus, anterior-posterior, or rotatory instability noted to the operative knee. Swelling was well controlled, patella was not ballotable and compartments were soft to the operative lower extremity. Dorsalis pedis and posterior tibial pulses were present andequal bilaterally. There was no evidence of infection or ascending lymphangitis to operative lower extremity. Sensation to light touch was intact to all dermatomes to bilateral lower extremities. Negative Homans and negative Efrem were noted bilaterally to lower extremities. Incision was healing without evidence of infection XR knee 1 or 2 views right Imaging Result: AP and lateral of right knee showed surgical position and alignment of prosthetic components without evidence of loosening or wear to the femoral, tibial, or patellar components. The alignment appeared to be anatomic. There was no evidence of accelerated or asymmetric wear to the patellar button or tibial tray. There was no evidence of fracture and/or dislocation. Impression: Unremarkable right total knee arthroplasty. Procedures Orders Placed This Encounter Procedures CBC auto differential Standing Status: Future Number of Occurrences: 1 Standing Expiration Date: 11/08/2024 Order Specific Question: Print requisition? Answer: No Sedimentation rate, automated Standing Status: Future Number of Occurrences: 1 Standing Expiration Date: 11/08/2024 Order Specific Question: Print requisition? Answer: No C-reactive protein Standing Status: Future Number of Occurrences: 1 Standing Expiration Date: 11/08/2024 Order Specific Question: Print requisition? Answer: No ASSESSMENT: ICD-10-CM 1. S/P TKR (total knee replacement), right Z96.651 2. Acute pain of right knee M25.561 CBC auto differential Sedimentation rate, automated C-reactive protein CBC auto differential Sedimentation rate, automated C-reactive protein PLAN: We have answered all the patients questions and explained the patients condition, decision making and plan including the risks and benefits associated with said plan in layman''s terms in a language the patient could understand easily. If patient''s symptoms significantly worsen and they cannot get a hold of us or their family physician, we have recommended that the patient proceed to the nearest emergency department (room). Dr. Saleh obtained history and examined the patient, I am acting as scribe for Dr. Saleh/isidoro, PLAN: We have reviewed prior (R) knee xrays. Patient admits that her right knee is better now than it was prior to sx, but does admit to continues discomfort to her right knee that has increased since returning to work. She is refusing an off of work note today as she states she can not afford timeoff of work. She denies relief with recent MDP. We are recommending an OTC pull on knee sleeve to wear with OTC sacha hose while at work in attempt to control the swelling noted. We are recommending labs to r/o an infection. We are recommending that she ice / elevate prior to hs. We have discussed her HEP and restrictions and will see her back in 2 weeks to reassess her right knee strength / ROM and discuss lab results ([facility]). Sonja Saleh D.O. documented in this encounterSaint Mary's Hospital of Blue [id number] Telephone encounter Note* Telephone Encounter - Mei Alba - 10/30/2023 10:31 AM EDT Patient called stating she tried to go back to work on 10/26/2023 and was not able to make it the four hours that stats in her chart for going back to work. She didn't work 10/27/2023 and 10/28/2023 can she have a work note for those days/ [facility] [id number] Miscellaneous Notes* Telephone Encounter - Mei Alba - 10/30/2023 10:31 AM EDT Patient called stating she tried to go back to work on 10/26/2023 and was not able to make it the four hours that stats in her chart for going back to work. She didn't work 10/27/2023 and 10/28/2023 can she have a work note for those days/ documented in this [facility]09-11-2024 History of Present illness Narrative* KIRSTIE Rehman - 10/28/2023 2:00 PM EDT Images from the original note were not included. HISTORY OF PRESENT ILLNESS: POST OP PT Phuong Randhawa is an 63 y.o. @ female. EST PT S/P RT TKA 09/08/23 (7WKS 1DAYS)- S/P MDP 10/14/23; DENIES RELIEF - PT IS BACK TO WORK 4HRS A DAY; CAUSING INCREASE PAIN XRAY RT KNEE 10/14/23 EPIC MDP 10/14/23 PAIN LATERAL KNEE- +SWELLING- PT ICES/ELEVATES- +WAKES HS- +LOCKING- CONTINUES PT NOMS BEKA; UNSURE OF IMPROVEMENT- +TYLENOL MIGRAINE-USES A CANE WITH PROLONG AMBULATING- PT IS REQUESTING A REFILL OF PAIN MEDS REVIEW OF SYSTEMS: General: Denies fever, fatigue or weight loss Lungs: Denies SOB Cardio: Denies chest pain GI: Denies indigestion or abdominal pain Neuro: Denies numbness or tingling, denies new onset paralysis Musculoskeletal: ( see note) PHYSICAL EXAM: Right Ankle Exam Swelling: none Right Knee Exam Right knee exam is normal. Muscle Strength The patient has normal right knee strength. Tenderness Right knee tenderness location: tenderness to quad tendon insertion on patella. no pain with resited extension. Range of Motion Extension: 0 Right knee flexion: 125, painless PROM. Tests Varus: negative Valgus: negative Other Erythema: absent Scars: present (Well healed, no drainage, no erythema) Sensation: normal Pulse: present Swelling: mild Effusion: no effusion present Comments: Operative lower extremity was noted to be neurovascularly intact. Patient was able to motor feet, toes and ankles in all anatomic planes bilaterally with 5 out of 5 strength. Operative knee's patellar tracking was optimal and quad 5/5 no pain on stressing. Ham 4-/5 strength with pain to an terior superior knee. There was no varus valgus, anterior-posterior, or rotatory instability noted to the operative knee. Swelling was well controlled, patella was not ballotable and compartments were soft to the operative lower extremity. Dorsalis pedis and posterior tibial pulses were present andequal bilaterally. There was no evidence of infection or ascending lymphangitis to operative lower extremity. Sensation to light touch was intact to all dermatomes to bilateral lower extremities. Negative Homans and negative Efrem were noted bilaterally to lower extremities. Incision was healing without evidence of infection XR knee 1 or 2 views right Imaging Result: AP and lateral of right knee showed surgical position and alignment of prosthetic components without evidence of loosening or wear to the femoral, tibial, or patellar components. The alignment appeared to be anatomic. There was no evidence of accelerated or asymmetric wear to the patellar button or tibial tray. There was no evidence of fracture and/or dislocation. Impression: Unremarkable right total knee arthroplasty. Procedures No orders of the defined types were placed in this encounter. ASSESSMENT: ICD-10-CM 1. S/P TKR (total knee replacement), right Z96.651 PLAN: Exam is benign, +tenderness superior quad tendon, n/t tingling lateral to incision, expected with infrapatella nerve discussed.. pt can only tolerate meloxicam. History of Ulcer.. I do not recommend narcotics.. pt reports self interest/ finance to return to work.. but still doing graduated return... spoke with therapist to try dry needle/ KT taper. Recheck in 3 wks. Questions answered in laymen terms at the bedside. The diagnosis, home exercise plan and any ongoing restrictions/ recommendations reviewed. If unable to be reached in office, I recommend evaluation at nearest Emergency Room if any symptoms worsened or new symptoms develop for requiring urgent evaluation. documented in this encounterSaint Mary's Hospital of Blue [id number] History of Present illness Narrative* KIRSTIE Rehman - 10/14/2023 1:30 PM EDT Images from the original note were not included. HISTORY OF PRESENT ILLNESS: POST OP PT Phuong Randhawa is an 63 y.o. @ female. No surgery found s/p surgery onNo surgery found EST PT S/P RT TKA 09/08/23 (5WKS 1DAY)- PT HAS CONCERNS; DOES NOT FEEL SHE IS READY TO GO BACK TO WORK AT THIS POINT- INCREASE PAIN WITH DRIVING- USING CANE TO AMBULATE- PAIN ANTERIOR KNEE- DESCRIBES PINS AND NEEDLES - MINIMAL SWELLING- PT ICES/ELEVATES- SOME INSTABILITY- +WAKES HS- +PERCOCET/TYLENOL- CONTINUES PT NOMS BEKA 2/WK; GOOD ROM/STRENGTH REVIEW OF SYSTEMS: General: Denies fever, fatigue or weight loss Lungs: Denies SOB Cardio: Denies chest pain GI: Denies indigestion or abdominal pain Neuro: Denies numbness or tingling, denies new onset paralysis Musculoskeletal: ( see note) PHYSICAL EXAM: Right Knee Exam Right knee exam is normal. Muscle Strength The patient has normal right knee strength. Range of Motion Extension: 0 Flexion: 120 (tightness on terminal flexion) Tests Varus: negative Valgus: negative Other Erythema: absent Scars: present (Well healed, no drainage, no erythema) Sensation: normal Pulse: present Swelling: mild Effusion: effusion (consistent with surgery) present Comments: Operative lower extremity was noted to be neurovascularly intact. Patient was able to motor feet, toes and ankles in all anatomic planes bilaterally with 5 out of 5 strength. Operative knee's patellar tracking was optimal and quad/ham strength was 5 out of 5 to operative lower extremity. There was no varus valgus, anterior-posterior, or rotatory instability noted to the operative knee. Swelling was well controlled, patella was not ballotable and compartments were soft to the operativelower extremity. Dorsalis pedis and posterior tibial pulses were present and equal bilaterally. There was no evidence of infection or ascending lymphangitis to operative lower extremity. Sensation tolight touch was intact to all dermatomes to bilateral lower extremities. Negative Homans and negative Efrem were noted bilaterally to lower extremities. Incision was healing without evidence of infection Procedures No orders of the defined types were placed in this encounter. ASSESSMENT: ICD-10-CM 1. S/P TKR (total knee replacement), right Z96.651 PLAN: + pain medial knee. Soreness. Walks well with cane.. recommend MDP , hold meloxicam while taking.. consider RTW in 2 wks.. xray discusses at bedside.. recommend follow up Dr. Saleh for repeat xray(L) knee in 2-3 months. Questions answered in laymen terms at the bedside. The diagnosis, home exercise plan and any ongoing restrictions/ recommendations reviewed. If unable to be reached in office, I recommend evaluation at nearest Emergency Room if any symptoms worsened or new symptoms develop for requiring urgent evaluation. documented in this encounterSaint Mary's Hospital of Blue [id number] Telephone encounter Note* Telephone Encounter - Mei Alba - 10/12/2023 11:42 AM EDT Patient calling to see if she can have a refill on her Percocet? Says she is still in a lot of pain. [facility] [id number] Miscellaneous Notes* Telephone Encounter - Mei Alba - 10/12/2023 11:42 AM EDT Patient calling to see if she can have a refill on her Percocet? Says she is still in a lot of pain. documented in this [facility]08-25-2024 Telephone encounter Note* Telephone Encounter - KIRSTIE Rehman - 10/11/2023 8:29 PM EDT Pt Should call for refill if needed. [facility] Work Phone: [phone] 162-291408-25-2024 Miscellaneous Notes* Telephone Encounter - KIRSTIE Rehman - 10/11/2023 8:29 PM EDT Pt Should call for refill if needed. documented in this [facility]08-14-2024 Telephone encounter Note* Telephone Encounter - Anamaria Hernandez - 09/30/2023 1:40 PM EDT Called pt and left vm to call the office [place] [id number] Miscellaneous Notes* Telephone Encounter - Anamaria Hernandez - 09/30/2023 1:40 PM EDT Called pt and left vm to call the office * Telephone Encounter - KIRSTIE Rehman - 09/30/2023 1:07 PM EDT Oarrs reviewed. RX sent to pharmacy. Please notify pt. Take least effective dose for pain control. * Telephone Encounter - Anamaria Hernandez - 09/30/2023 9:50 AM EDT Pt called requesting refill of Percocet called in to [facility] in [place]. She is not completely out , but does not want to run out. Allergies: in chart Pt had RT TKA 09/08/23 Her call back [phone] documented in this encounterSaint Mary's Hospital of Blue [id number] Telephone encounter Note* Telephone Encounter - KIRSTIE Rehman - 09/30/2023 1:07 PM EDT Oarrs reviewed. RX sent to pharmacy. Please notify pt. Take least effective dose for pain control. [facility] [id number] Telephone encounter Note* Telephone Encounter - Anamaria Hernandez - 09/30/2023 9:50 AM EDT Pt called requesting refill of Percocet called in to [facility] in [place]. She is not completely out , but does not want to run out. Allergies: in chart Pt had RT TKA 09/08/23 Her call back [phone] [facility] HealthcareEvaluation note* Diagnosis Gastroesophageal reflux disease without esophagitis- Primary Esophageal reflux Chronic constipation Unspecified constipation History of allergic reaction documented in this encounter [facility] HealthcareEvaluation note* Diagnosis Lightheaded- Primary Dizziness and giddiness Fatigue, unspecified type Postoperative pain of right knee Overflow incontinence of urine Overflow incontinence Encounter for long-term (current) use of medications Encounter for long-term (current) use of other medications Primary osteoarthritis of right knee Body mass index (BMI) 36.0-36.9, adult documented in this encounter [facility]* Diagnosis S/P TKR (total knee replacement), right- Primary Primary osteoarthritis of right knee documented in this encounter [facility] HealthcareEvaluation note* Diagnosis Primary osteoarthritis of right knee- Primary Postoperative pain of right knee Status post right knee replacement Presence of artificial knee joint, right documented in this encounter [facility] HealthcareEvaluation note* Diagnosis Lumbar spondylosis- Primary Lumbosacral spondylosis without myelopathy Primary insomnia Persistent disorder of initiating or maintaining sleep Gastroesophageal reflux disease without esophagitis Esophageal reflux Seasonal allergic rhinitis due to pollen Obesity (BMI 30-39.9) Metabolic syndrome Dysmetabolic Syndrome X Annual physical exam Routine general medical examination at a health care facility Preoperative clearance- Primary Unspecified pre-operative examination Primary osteoarthritis of right knee Major depressive disorder, recurrent episode, mild degree (HCC) (CMS/HCC) Major depressive disorder, recurrent episode, mild Body mass index (BMI) 35.0-35.9, adult Colon cancer screening Special screening for malignant neoplasms, colon Lightheaded- Primary Dizziness and giddiness Fatigue, unspecified type Postoperative pain of right knee Overflow incontinence of urine Overflow incontinence Encounter for long-term (current) use of medications Encounter for long-term (current) use of other medications Primary osteoarthritis of right knee Body mass index (BMI) 36.0-36.9, adult Primary osteoarthritis of right knee- Primary Postoperative pain of right knee Status post right knee replacement Presence of artificial knee joint, right documented in this encounter [facility] HealthcareEvaluation note* Diagnosis Lumbar spondylosis- Primary Lumbosacral spondylosis without myelopathy Primary insomnia Persistent disorder of initiating or maintaining sleep Gastroesophageal reflux disease without esophagitis Esophageal reflux Seasonal allergic rhinitis due to pollen Obesity (BMI 30-39.9) Metabolic syndrome Dysmetabolic Syndrome X Annual physical exam Routine general medical examination at a health care facility Preoperative clearance- Primary Unspecified pre-operative examination Primary osteoarthritis of right knee Major depressive disorder, recurrent episode, mild degree (HCC) (CMS/HCC) Major depressive disorder, recurrent episode, mild Body mass index (BMI) 35.0-35.9, adult Colon cancer screening Special screening for malignant neoplasms, colon Lightheaded- Primary Dizziness and giddiness Fatigue, unspecified type Postoperative pain of right knee Overflow incontinence of urine Overflow incontinence Encounter for long-term (current) use of medications Encounter for long-term (current) use of other medications Primary osteoarthritis of right knee Body mass index (BMI) 36.0-36.9, adult Postoperative pain of right knee- Primary Status post right knee replacement Presence of artificial knee joint, right Acute pain of right knee- Primary documented in this encounter [facility]Evaluation note* Diagnosis Lumbar spondylosis- Primary Lumbosacral spondylosis without myelopathy Primary insomnia Persistent disorder of initiating or maintaining sleep Gastroesophageal reflux disease without esophagitis Esophageal reflux Seasonal allergic rhinitis due to pollen Obesity (BMI 30-39.9) Metabolic syndrome Dysmetabolic Syndrome X Annual physical exam Routine general medical examination at a health care facility Preoperative clearance- Primary Unspecified pre-operative examination Primary osteoarthritis of right knee Major depressive disorder, recurrent episode, mild degree (HCC) (CMS/HCC) Major depressive disorder, recurrent episode, mild Body mass index (BMI) 35.0-35.9, adult Colon cancer screening Special screening for malignant neoplasms, colon Lightheaded- Primary Dizziness and giddiness Fatigue, unspecified type Postoperative pain of right knee Overflow incontinence of urine Overflow incontinence Encounter for long-term (current) use of medications Encounter for long-term (current) use of other medications Primary osteoarthritis of right knee Body mass index (BMI) 36.0-36.9, adult Postoperative pain of right knee- Primary Status post right knee replacement Presence of artificial knee joint, right documented in this encounter [facility]Evaluation note* Diagnosis Lumbar spondylosis- Primary Lumbosacral spondylosis without myelopathy Primary insomnia Persistent disorder of initiating or maintaining sleep Gastroesophageal reflux disease without esophagitis Esophageal reflux Seasonal allergic rhinitis due to pollen Obesity (BMI 30-39.9) Metabolic syndrome Dysmetabolic Syndrome X Annual physical exam Routine general medical examination at a health care facility Preoperative clearance- Primary Unspecified pre-operative examination Primary osteoarthritis of right knee Major depressive disorder, recurrent episode, mild degree (HCC) (CMS/HCC) Major depressive disorder, recurrent episode, mild Body mass index (BMI) 35.0-35.9, adult Colon cancer screening Special screening for malignant neoplasms, colon Lightheaded- Primary Dizziness and giddiness Fatigue, unspecified type Postoperative pain of right knee Overflow incontinence of urine Overflow incontinence Encounter for long-term (current) use of medications Encounter for long-term (current) use of other medications Primary osteoarthritis of right knee Body mass index (BMI) 36.0-36.9, adult Primary osteoarthritis of right knee- Primary Postoperative pain of right knee Status post right knee replacement Presence of artificial knee joint, right documented in this encounter [facility]Evaluation note* Diagnosis Lumbar spondylosis- Primary Lumbosacral spondylosis without myelopathy Primary insomnia Persistent disorder of initiating or maintaining sleep Gastroesophageal reflux disease without esophagitis Esophageal reflux Seasonal allergic rhinitis due to pollen Obesity (BMI 30-39.9) Metabolic syndrome Dysmetabolic Syndrome X Annual physical exam Routine general medical examination at a health care facility Preoperative clearance- Primary Unspecified pre-operative examination Primary osteoarthritis of right knee Major depressive disorder, recurrent episode, mild degree (HCC) (CMS/HCC) Major depressive disorder, recurrent episode, mild Body mass index (BMI) 35.0-35.9, adult Colon cancer screening Special screening for malignant neoplasms, colon Lightheaded- Primary Dizziness and giddiness Fatigue, unspecified type Postoperative pain of right knee Overflow incontinence of urine Overflow incontinence Encounter for long-term (current) use of medications Encounter for long-term (current) use of other medications Primary osteoarthritis of right knee Body mass index (BMI) 36.0-36.9, adult Primary osteoarthritis of left knee documented in this encounter [facility] HealthcareEvaluation note* Diagnosis Lumbar spondylosis- Primary Lumbosacral spondylosis without myelopathy Primary insomnia Persistent disorder of initiating or maintaining sleep Gastroesophageal reflux disease without esophagitis Esophageal reflux Seasonal allergic rhinitis due to pollen Obesity (BMI 30-39.9) Metabolic syndrome Dysmetabolic Syndrome X Annual physical exam Routine general medical examination at a health care facility Preoperative clearance- Primary Unspecified pre-operative examination Primary osteoarthritis of right knee Major depressive disorder, recurrent episode, mild degree (HCC) (CMS/HCC) Major depressive disorder, recurrent episode, mild Body mass index (BMI) 35.0-35.9, adult Colon cancer screening Special screening for malignant neoplasms, colon Lightheaded- Primary Dizziness and giddiness Fatigue, unspecified type Postoperative pain of right knee Overflow incontinence of urine Overflow incontinence Encounter for long-term (current) use of medications Encounter for long-term (current) use of other medications Primary osteoarthritis of right knee Body mass index (BMI) 36.0-36.9, adult Postoperative pain of right knee- Primary Status post right knee replacement Presence of artificial knee joint, right documented in this encounter [facility]Evaluation note* Diagnosis Lumbar spondylosis- Primary Lumbosacral spondylosis without myelopathy Primary insomnia Persistent disorder of initiating or maintaining sleep Gastroesophageal reflux disease without esophagitis Esophageal reflux Seasonal allergic rhinitis due to pollen Obesity (BMI 30-39.9) Metabolic syndrome Dysmetabolic Syndrome X Annual physical exam Routine general medical examination at a health care facility Preoperative clearance- Primary Unspecified pre-operative examination Primary osteoarthritis of right knee Major depressive disorder, recurrent episode, mild degree (HCC) (CMS/HCC) Major depressive disorder, recurrent episode, mild Body mass index (BMI) 35.0-35.9, adult Colon cancer screening Special screening for malignant neoplasms, colon Lightheaded- Primary Dizziness and giddiness Fatigue, unspecified type Postoperative pain of right knee Overflow incontinence of urine Overflow incontinence Encounter for long-term (current) use of medications Encounter for long-term (current) use of other medications Primary osteoarthritis of right knee Body mass index (BMI) 36.0-36.9, adult Acute pain of right knee- Primary History of right knee joint replacement Arthralgia of right knee documented in this encounter [facility]Evaluation note* Diagnosis Lumbar spondylosis- Primary Lumbosacral spondylosis without myelopathy Primary insomnia Persistent disorder of initiating or maintaining sleep Gastroesophageal reflux disease without esophagitis Esophageal reflux Seasonal allergic rhinitis due to pollen Obesity (BMI 30-39.9) Metabolic syndrome Dysmetabolic Syndrome X Annual physical exam Routine general medical examination at a health care facility Preoperative clearance- Primary Unspecified pre-operative examination Primary osteoarthritis of right knee Major depressive disorder, recurrent episode, mild degree (HCC) (CMS/HCC) Major depressive disorder, recurrent episode, mild Body mass index (BMI) 35.0-35.9, adult Colon cancer screening Special screening for malignant neoplasms, colon Lightheaded- Primary Dizziness and giddiness Fatigue, unspecified type Postoperative pain of right knee Overflow incontinence of urine Overflow incontinence Encounter for long-term (current) use of medications Encounter for long-term (current) use of other medications Primary osteoarthritis of right knee Body mass index (BMI) 36.0-36.9, adult Acute pain of right knee- Primary History of right knee joint replacement documented in this encounter [facility]Evaluation note* Diagnosis Lumbar spondylosis- Primary Lumbosacral spondylosis without myelopathy Primary insomnia Persistent disorder of initiating or maintaining sleep Gastroesophageal reflux disease without esophagitis Esophageal reflux Seasonal allergic rhinitis due to pollen Obesity (BMI 30-39.9) Metabolic syndrome Dysmetabolic Syndrome X Annual physical exam Routine general medical examination at a health care facility Preoperative clearance- Primary Unspecified pre-operative examination Primary osteoarthritis of right knee Major depressive disorder, recurrent episode, mild degree (HCC) (CMS/HCC) Major depressive disorder, recurrent episode, mild Body mass index (BMI) 35.0-35.9, adult Colon cancer screening Special screening for malignant neoplasms, colon Lightheaded- Primary Dizziness and giddiness Fatigue, unspecified type Postoperative pain of right knee Overflow incontinence of urine Overflow incontinence Encounter for long-term (current) use of medications Encounter for long-term (current) use of other medications Primary osteoarthritis of right knee Body mass index (BMI) 36.0-36.9, adult S/P TKR (total knee replacement), right documented in this encounter [facility]* Diagnosis Primary osteoarthritis of right knee- Primary Postoperative pain of right knee Status post right knee replacement Presence of artificial knee joint, right documented in this encounter [facility]* Diagnosis Insomnia, unspecified documented in this encounter [facility]* Diagnosis Lumbar spondylosis- Primary Lumbosacral spondylosis without myelopathy Primary insomnia Persistent disorder of initiating or maintaining sleep Gastroesophageal reflux disease without esophagitis Esophageal reflux Seasonal allergic rhinitis due to pollen Obesity (BMI 30-39.9) Metabolic syndrome Dysmetabolic Syndrome X Annual physical exam Routine general medical examination at a health care facility Preoperative clearance- Primary Unspecified pre-operative examination Primary osteoarthritis of right knee Major depressive disorder, recurrent episode, mild degree (HCC) (CMS/HCC) Major depressive disorder, recurrent episode, mild Body mass index (BMI) 35.0-35.9, adult Colon cancer screening Special screening for malignant neoplasms, colon Lightheaded- Primary Dizziness and giddiness Fatigue, unspecified type Postoperative pain of right knee Overflow incontinence of urine Overflow incontinence Encounter for long-term (current) use of medications Encounter for long-term (current) use of other medications Primary osteoarthritis of right knee Body mass index (BMI) 36.0-36.9, adult Acute pain of right knee- Primary documented in this encounter [facility]* Diagnosis S/P TKR (total knee replacement), right documented in this encounter [facility]* Diagnosis Preop examination Unspecified pre-operative examination Primary osteoarthritis of right knee documented in this encounter [facility]* Diagnosis Primary osteoarthritis of right knee- Primary Postoperative pain of right knee Status post right knee replacement Presence of artificial knee joint, right documented in this encounter [facility]* Diagnosis S/P TKR (total knee replacement), right- Primary Acute pain of right knee documented in this encounter [facility]* Diagnosis S/P TKR (total knee replacement), right- Primary Primary osteoarthritis of right knee- Primary Postoperative pain of right knee Status post right knee replacement Presence of artificial knee joint, right documented in this encounter [facility]* Diagnosis Primary osteoarthritis of right knee- Primary Postoperative pain of right knee Status post right knee replacement Presence of artificial knee joint, right documented in this encounter [facility]* Diagnosis Primary osteoarthritis of left knee documented in this encounter [facility]* Diagnosis S/P TKR (total knee replacement), right- Primary documented in this encounter [facility]* Diagnosis Primary osteoarthritis of right knee- Primary Postoperative pain of right knee Status post right knee replacement Presence of artificial knee joint, right documented in this encounter [facility]* Diagnosis S/P TKR (total knee replacement), right- Primary Acute pain of right knee documented in this encounter [facility]* Diagnosis Lumbar spondylosis- Primary Lumbosacral spondylosis without myelopathy Primary insomnia Persistent disorder of initiating or maintaining sleep Gastroesophageal reflux disease without esophagitis Esophageal reflux Seasonal allergic rhinitis due to pollen Obesity (BMI 30-39.9) Metabolic syndrome Dysmetabolic Syndrome X Annual physical exam Routine general medical examination at a health care facility Preoperative clearance- Primary Unspecified pre-operative examination Primary osteoarthritis of right knee Major depressive disorder, recurrent episode, mild degree (HCC) ([facility]/HCC) Major depressive disorder, recurrent episode, mild Body mass index (BMI) 35.0-35.9, adult Colon cancer screening Special screening for malignant neoplasms, colon Lightheaded- Primary Dizziness and giddiness Fatigue, unspecified type Postoperative pain of right knee Overflow incontinence of urine Overflow incontinence Encounter for long-term (current) use of medications Encounter for long-term (current) use of other medications Primary osteoarthritis of right knee Body mass index (BMI) 36.0-36.9, adult Insomnia, unspecified documented in this encounter [facility] HealthcareEvaluation note* Diagnosis Lumbar spondylosis- Primary Lumbosacral spondylosis without myelopathy Primary insomnia Persistent disorder of initiating or maintaining sleep Gastroesophageal reflux disease without esophagitis Esophageal reflux Seasonal allergic rhinitis due to pollen Obesity (BMI 30-39.9) Metabolic syndrome Dysmetabolic Syndrome X Annual physical exam Routine general medical examination at a health care facility Preoperative clearance- Primary Unspecified pre-operative examination Primary osteoarthritis of right knee Major depressive disorder, recurrent episode, mild degree (HCC) (CMS/HCC) Major depressive disorder, recurrent episode, mild Body mass index (BMI) 35.0-35.9, adult Colon cancer screening Special screening for malignant neoplasms, colon Lightheaded- Primary Dizziness and giddiness Fatigue, unspecified type Postoperative pain of right knee Overflow incontinence of urine Overflow incontinence Encounter for long-term (current) use of medications Encounter for long-term (current) use of other medications Primary osteoarthritis of right knee Body mass index (BMI) 36.0-36.9, adult Primary osteoarthritis of left knee documented in this encounter [facility] HealthcareEvaluation note* Diagnosis Lumbar spondylosis- Primary Lumbosacral spondylosis without myelopathy Primary insomnia Persistent disorder of initiating or maintaining sleep Gastroesophageal reflux disease without esophagitis Esophageal reflux Seasonal allergic rhinitis due to pollen Obesity (BMI 30-39.9) Metabolic syndrome Dysmetabolic Syndrome X Annual physical exam Routine general medical examination at a health care facility Preoperative clearance- Primary Unspecified pre-operative examination Primary osteoarthritis of right knee Major depressive disorder, recurrent episode, mild degree (HCC) (CMS/HCC) Major depressive disorder, recurrent episode, mild Body mass index (BMI) 35.0-35.9, adult Colon cancer screening Special screening for malignant neoplasms, colon Lightheaded- Primary Dizziness and giddiness Fatigue, unspecified type Postoperative pain of right knee Overflow incontinence of urine Overflow incontinence Encounter for long-term (current) use of medications Encounter for long-term (current) use of other medications Primary osteoarthritis of right knee Body mass index (BMI) 36.0-36.9, adult Annual physical exam- Primary Routine general medical examination at a health care facility Lumbar spondylosis Lumbosacral spondylosis without myelopathy Primary osteoarthritis of right knee MDD (major depressive disorder), recurrent episode, moderate (CMS/HCC) Overflow incontinence of urine Overflow incontinence Class 2 severe obesity due to excess calories with serious comorbidity and body mass index (BMI) of 36.0 to 36.9 in adult (CMS/HCC) documented in this encounter [facility]Evaluation note* Diagnosis Lumbar spondylosis- Primary Lumbosacral spondylosis without myelopathy Primary insomnia Persistent disorder of initiating or maintaining sleep Gastroesophageal reflux disease without esophagitis Esophageal reflux Seasonal allergic rhinitis due to pollen Obesity (BMI 30-39.9) Metabolic syndrome Dysmetabolic Syndrome X Annual physical exam Routine general medical examination at a health care facility Preoperative clearance- Primary Unspecified pre-operative examination Primary osteoarthritis of right knee Major depressive disorder, recurrent episode, mild degree (HCC) (CMS/[facility]) Major depressive disorder, recurrent episode, mild Body mass index (BMI) 35.0-35.9, adult Colon cancer screening Special screening for malignant neoplasms, colon Lightheaded- Primary Dizziness and giddiness Fatigue, unspecified type Postoperative pain of right knee Overflow incontinence of urine Overflow incontinence Encounter for long-term (current) use of medications Encounter for long-term (current) use of other medications Primary osteoarthritis of right knee Body mass index (BMI) 36.0-36.9, adult Annual physical exam- Primary Routine general medical examination at a health care facility Lumbar spondylosis Lumbosacral spondylosis without myelopathy Primary osteoarthritis of right knee MDD (major depressive disorder), recurrent episode, moderate (CMS/HCC) Overflow incontinence of urine Overflow incontinence Class 2 severe obesity due to excess calories with serious comorbidity and body mass index (BMI) of 36.0 to 36.9 in adult (CMS/HCC) Acute pain of right knee- Primary documented in this encounter [facility]Evaluation note* Diagnosis Lumbar spondylosis- Primary Lumbosacral spondylosis without myelopathy Primary insomnia Persistent disorder of initiating or maintaining sleep Gastroesophageal reflux disease without esophagitis Esophageal reflux Seasonal allergic rhinitis due to pollen Obesity (BMI 30-39.9) Metabolic syndrome Dysmetabolic Syndrome X Annual physical exam Routine general medical examination at a health care facility Preoperative clearance- Primary Unspecified pre-operative examination Primary osteoarthritis of right knee Major depressive disorder, recurrent episode, mild degree (HCC) (CMS/HCC) Major depressive disorder, recurrent episode, mild Body mass index (BMI) 35.0-35.9, adult Colon cancer screening Special screening for malignant neoplasms, colon Lightheaded- Primary Dizziness and giddiness Fatigue, unspecified type Postoperative pain of right knee Overflow incontinence of urine Overflow incontinence Encounter for long-term (current) use of medications Encounter for long-term (current) use of other medications Primary osteoarthritis of right knee Body mass index (BMI) 36.0-36.9, adult Annual physical exam- Primary Routine general medical examination at a [facility] [place] care facility Lumbar spondylosis Lumbosacral spondylosis without myelopathy Primary osteoarthritis of right knee MDD (major depressive disorder), recurrent episode, moderate (CMS/HCC) Overflow incontinence of urine Overflow incontinence Class 2 severe obesity due to excess calories with serious comorbidity and body mass index (BMI) of 36.0 to 36.9 in adult (CMS/HCC) Pain and swelling of right knee- Primary documented in this encounter [facility]Evaluation note* Diagnosis Lumbar spondylosis- Primary Lumbosacral spondylosis without myelopathy Primary insomnia Persistent disorder of initiating or maintaining sleep Gastroesophageal reflux disease without esophagitis Esophageal reflux Seasonal allergic rhinitis due to pollen Obesity (BMI 30-39.9) Metabolic syndrome Dysmetabolic Syndrome X Annual physical exam Routine general medical examination at a health care facility Preoperative clearance- Primary Unspecified pre-operative examination Primary osteoarthritis of right knee Major depressive disorder, recurrent episode, mild degree (HCC) (CMS/HCC) Major depressive disorder, recurrent episode, mild Body mass index (BMI) 35.0-35.9, adult Colon cancer screening Special screening for malignant neoplasms, colon Lightheaded- Primary Dizziness and giddiness Fatigue, unspecified type Postoperative pain of right knee Overflow incontinence of urine Overflow incontinence Encounter for long-term (current) use of medications Encounter for long-term (current) use of other medications Primary osteoarthritis of right knee Body mass index (BMI) 36.0-36.9, adult Annual physical exam- Primary Routine general medical examination at a [facility] Lumbar spondylosis Lumbosacral spondylosis without myelopathy Primary osteoarthritis of right knee MDD (major depressive disorder), recurrent episode, moderate (CMS/HCC) Overflow incontinence of urine Overflow incontinence Class 2 severe obesity due to excess calories with serious comorbidity and body mass index (BMI) of 36.0 to 36.9 in adult (CMS/HCC) Nerve pain- Primary Unspecified neuralgia, neuritis, and radiculitis History of right knee joint replacement Acute pain of right knee documented in this encounter [facility]* Diagnosis Onset Date Resolution Status Admit Date Other chronic pain acute Februa 2024 1:02pm Primary osteoarthritis of ri ght knee acute April 13 1:02pm [facility] Work Phone: Evaluation note* Diagnosis Lumbar spondylosis- Primary Lumbosacral spondylosis without myelopathy Primary insomnia Persistent disorder of initiating or maintaining sleep Gastroesophageal reflux disease without esophagitis Esophageal reflux Seasonal allergic rhinitis due to pollen Obesity (BMI 30-39.9) Metabolic syndrome Dysmetabolic Syndrome X Annual physical exam Routine general medical examination at a health care facility Preoperative clearance- Primary Unspecified pre-operative examination Primary osteoarthritis of right knee Major depressive disorder, recurrent episode, mild degree (HCC) (CMS/HCC) Major depressive disorder, recurrent episode, mild Body mass index (BMI) 35.0-35.9, adult Colon cancer screening Special screening for malignant neoplasms, colon Lightheaded- Primary Dizziness and giddiness Fatigue, unspecified type Postoperative pain of right knee Overflow incontinence of urine Overflow incontinence Encounter for long-term (current) use of medications Encounter for long-term (current) use of other medications Primary osteoarthritis of right knee Body mass index (BMI) 36.0-36.9, adult Annual physical exam- Primary Routine general medical examination at a health care facility Lumbar spondylosis Lumbosacral spondylosis without myelopathy Primary osteoarthritis of right knee MDD (major depressive disorder), recurrent episode, moderate (CMS/HCC) Overflow incontinence of urine Overflow incontinence Class 2 severe obesity due to excess calories with serious comorbidity and body mass index (BMI) of 36.0 to 36.9 in adult (CMS/HCC) S/P TKR (total knee replacement), right documented in this encounter [facility]* Diagnosis Lumbar spondylosis- Primary Lumbosacral spondylosis without myelopathy Primary insomnia Persistent disorder of initiating or maintaining sleep Gastroesophageal reflux disease without esophagitis Esophageal reflux Seasonal allergic rhinitis due to pollen Obesity (BMI 30-39.9) Metabolic syndrome Dysmetabolic Syndrome X Annual physical exam Routine general medical examination at a health care facility Preoperative clearance- Primary Unspecified pre-operative examination Primary osteoarthritis of right knee Major depressive disorder, recurrent episode, mild degree (HCC) (CMS/HCC) Major depressive disorder, recurrent episode, mild Body mass index (BMI) 35.0-35.9, adult Colon cancer screening Special screening for malignant neoplasms, colon Lightheaded- Primary Dizziness and giddiness Fatigue, unspecified type Postoperative pain of right knee Overflow incontinence of urine Overflow incontinence Encounter for long-term (current) use of medications Encounter for long-term (current) use of other medications Primary osteoarthritis of right knee Body mass index (BMI) 36.0-36.9, adult Annual physical exam- Primary Routine general medical examination at a health care facility Lumbar spondylosis Lumbosacral spondylosis without myelopathy Primary osteoarthritis of right knee MDD (major depressive disorder), recurrent episode, moderate (CMS/HCC) Overflow incontinence of urine Overflow incontinence Class 2 severe obesity due to excess calories with serious comorbidity and body mass index (BMI) of 36.0 to 36.9 in adult (CMS/HCC) Insomnia, unspecified documented in this encounter [facility]* Diagnosis Lumbar spondylosis- Primary Lumbosacral spondylosis without myelopathy Primary insomnia Persistent disorder of initiating or maintaining sleep Gastroesophageal reflux disease without esophagitis Esophageal reflux Seasonal allergic rhinitis due to pollen Obesity (BMI 30-39.9) Metabolic syndrome Dysmetabolic Syndrome X Annual physical exam Routine general medical examination at a health care facility Preoperative clearance- Primary Unspecified pre-operative examination Primary osteoarthritis of right knee Major depressive disorder, recurrent episode, mild degree (HCC) (CMS/HCC) Major depressive disorder, recurrent episode, mild Body mass index (BMI) 35.0-35.9, adult Colon cancer screening Special screening for malignant neoplasms, colon Lightheaded- Primary Dizziness and giddiness Fatigue, unspecified type Postoperative pain of right knee Overflow incontinence of urine Overflow incontinence Encounter for long-term (current) use of medications Encounter for long-term (current) use of other medications Primary osteoarthritis of right knee Body mass index (BMI) 36.0-36.9, adult Annual physical exam- Primary Routine general medical examination at a health care facility Lumbar spondylosis Lumbosacral spondylosis without myelopathy Primary osteoarthritis of right knee MDD (major depressive disorder), recurrent episode, moderate (CMS/HCC) Overflow incontinence of urine Overflow incontinence Class 2 severe obesity due to excess calories with serious comorbidity and body mass index (BMI) of 36.0 to 36.9 in adult (CMS/HCC) Lumbar spondylosis Lumbosacral spondylosis without myelopathy documented in this encounter [facility]* Diagnosis Lumbar spondylosis- Primary Lumbosacral spondylosis without myelopathy Primary insomnia Persistent disorder of initiating or maintaining sleep Gastroesophageal reflux disease without esophagitis Esophageal reflux Seasonal allergic rhinitis due to pollen Obesity (BMI 30-39.9) Metabolic syndrome Dysmetabolic Syndrome X Annual physical exam Routine general medical examination at a health care facility Preoperative clearance- Primary Unspecified pre-operative examination Primary osteoarthritis of right knee Major depressive disorder, recurrent episode, mild degree (HCC) (CMS/HCC) Major depressive disorder, recurrent episode, mild Body mass index (BMI) 35.0-35.9, adult Colon cancer screening Special screening for malignant neoplasms, colon Lightheaded- Primary Dizziness and giddiness Fatigue, unspecified type Postoperative pain of right knee Overflow incontinence of urine Overflow incontinence Encounter for long-term (current) use of medications Encounter for long-term (current) use of other medications Primary osteoarthritis of right knee Body mass index (BMI) 36.0-36.9, adult Annual physical exam- Primary Routine general medical examination at a health care facility Lumbar spondylosis Lumbosacral spondylosis without myelopathy Primary osteoarthritis of right knee MDD (major depressive disorder), recurrent episode, moderate (CMS/HCC) Overflow incontinence of urine Overflow incontinence Class 2 severe obesity due to excess calories with serious comorbidity and body mass index (BMI) of 36.0 to 36.9 in adult (CMS/HCC) Nerve pain- Primary Unspecified neuralgia, neuritis, and radiculitis History of right knee joint replacement documented in this encounter [facility]* Diagnosis Lumbar spondylosis- Primary Lumbosacral spondylosis without myelopathy Primary insomnia Persistent disorder of initiating or maintaining sleep Gastroesophageal reflux disease without esophagitis Esophageal reflux Seasonal allergic rhinitis due to pollen Obesity (BMI 30-39.9) Metabolic syndrome Dysmetabolic Syndrome X Annual physical exam Routine general medical examination at a health care facility Preoperative clearance- Primary Unspecified pre-operative examination Primary osteoarthritis of right knee Major depressive disorder, recurrent episode, mild degree Major depressive disorder, recurrent episode, mild Body mass index (BMI) 35.0-35.9, adult Colon cancer screening Special screening for malignant neoplasms, colon Lightheaded- Primary Dizziness and giddiness Fatigue, unspecified type Postoperative pain of right knee Overflow incontinence of urine Overflow incontinence Encounter for long-term (current) use of medications Encounter for long-term (current) use of other medications Primary osteoarthritis of right knee Body mass index (BMI) 36.0-36.9, adult Annual physical exam- Primary Routine general medical examination at a health care facility Lumbar spondylosis Lumbosacral spondylosis without myelopathy Primary osteoarthritis of right knee MDD (major depressive disorder), recurrent episode, moderate (HCC) Overflow incontinence of urine Overflow incontinence Class 2 severe obesity due to excess calories with serious comorbidity and body mass index (BMI) of 36.0 to 36.9 in adult ([facility]) Lumbar spondylosis- Primary Lumbosacral spondylosis without myelopathy Primary osteoarthritis of right knee Acute right ankle pain Primary insomnia Persistent disorder of initiating or maintaining sleep Seasonal allergic rhinitis due to pollen Class 2 severe obesity due to excess calories with serious comorbidity and body mass index (BMI) of 37.0 to 37.9 in adult ([facility]) documented in this encounter [facility] note* Diagnosis Lumbar spondylosis- Primary Lumbosacral spondylosis without myelopathy Primary insomnia Persistent disorder of initiating or maintaining sleep Gastroesophageal reflux disease without esophagitis Esophageal reflux Seasonal allergic rhinitis due to pollen Obesity (BMI 30-39.9) Metabolic syndrome Dysmetabolic Syndrome X Annual physical exam Routine general medical examination at a health care facility Preoperative clearance- Primary Unspecified pre-operative examination Primary osteoarthritis of right knee Major depressive disorder, recurrent episode, mild degree Major depressive disorder, recurrent episode, mild Body mass index (BMI) 35.0-35.9, adult Colon cancer screening Special screening for malignant neoplasms, colon Lightheaded- Primary Dizziness and giddiness Fatigue, unspecified type Postoperative pain of right knee Overflow incontinence of urine Overflow incontinence Encounter for long-term (current) use of medications Encounter for long-term (current) use of other medications Primary osteoarthritis of right knee Body mass index (BMI) 36.0-36.9, adult Annual physical exam- Primary Routine general medical examination at a health care facility Lumbar spondylosis Lumbosacral spondylosis without myelopathy Primary osteoarthritis of right knee MDD (major depressive disorder), recurrent episode, moderate (HCC) Overflow incontinence of urine Overflow incontinence Class 2 severe obesity due to excess calories with serious comorbidity and body mass index (BMI) of 36.0 to 36.9 in adult ([facility]) Lumbar spondylosis- Primary Lumbosacral spondylosis without myelopathy Primary osteoarthritis of right knee Acute right ankle pain Primary insomnia Persistent disorder of initiating or maintaining sleep Seasonal allergic rhinitis due to pollen Class 2 severe obesity due to excess calories with serious comorbidity and body mass index (BMI) of 37.0 to 37.9 in adult ([facility]) Encounter for gynecological examination without abnormal finding- Primary Encounter for Papanicolaou smear of cervix Breast cancer screening by mammogram Osteopenia, unspecified location Screening for osteoporosis Special screening for osteoporosis Asymptomatic menopausal state documented in this encounter [facility]* Diagnosis Lumbar spondylosis- Primary Lumbosacral spondylosis without myelopathy Primary insomnia Persistent disorder of initiating or maintaining sleep Gastroesophageal reflux disease without esophagitis Esophageal reflux Seasonal allergic rhinitis due to pollen Obesity (BMI 30-39.9) Metabolic syndrome Dysmetabolic Syndrome X Annual physical exam Routine general medical examination at a health care facility Preoperative clearance- Primary Unspecified pre-operative examination Primary osteoarthritis of right knee Major depressive disorder, recurrent episode, mild degree Major depressive disorder, recurrent episode, mild Body mass index (BMI) 35.0-35.9, adult Colon cancer screening Special screening for malignant neoplasms, colon Lightheaded- Primary Dizziness and giddiness Fatigue, unspecified type Postoperative pain of right knee Overflow incontinence of urine Overflow incontinence Encounter for long-term (current) use of medications Encounter for long-term (current) use of other medications Primary osteoarthritis of right knee Body mass index (BMI) 36.0-36.9, adult Annual physical exam- Primary Routine general medical examination at a [facility] care facility Lumbar spondylosis Lumbosacral spondylosis without myelopathy Primary osteoarthritis of right knee MDD (major depressive disorder), recurrent episode, moderate (HCC) Overflow incontinence of urine Overflow incontinence Class 2 severe obesity due to excess calories with serious comorbidity and body mass index (BMI) of 36.0 to 36.9 in adult ([facility]) Lumbar spondylosis- Primary Lumbosacral spondylosis without myelopathy Primary osteoarthritis of right knee Acute right ankle pain Primary insomnia Persistent disorder of initiating or maintaining sleep Seasonal allergic rhinitis due to pollen Class 2 severe obesity due to excess calories with serious comorbidity and body mass index (BMI) of 37.0 to 37.9 in adult ([facility]) Right ankle pain, unspecified chronicity Tendonitis of ankle, right History of right knee joint replacement Acute pain of right knee documented in this encounter [facility] note* Diagnosis Lumbar spondylosis- Primary Lumbosacral spondylosis without myelopathy Primary insomnia Persistent disorder of initiating or maintaining sleep Gastroesophageal reflux disease without esophagitis Esophageal reflux Seasonal allergic rhinitis due to pollen Obesity (BMI 30-39.9) Metabolic syndrome Dysmetabolic Syndrome X Annual physical exam Routine general medical examination at a health care facility Preoperative clearance- Primary Unspecified pre-operative examination Primary osteoarthritis of right knee Major depressive disorder, recurrent episode, mild degree Major depressive disorder, recurrent episode, mild Body mass index (BMI) 35.0-35.9, adult Colon cancer screening Special screening for malignant neoplasms, colon Lightheaded- Primary Dizziness and giddiness Fatigue, unspecified type Postoperative pain of right knee Overflow incontinence of urine Overflow incontinence Encounter for long-term (current) use of medications Encounter for long-term (current) use of other medications Primary osteoarthritis of right knee Body mass index (BMI) 36.0-36.9, adult Annual physical exam- Primary Routine general medical examination at a health care facility Lumbar spondylosis Lumbosacral spondylosis without myelopathy Primary osteoarthritis of right knee MDD (major depressive disorder), recurrent episode, moderate (HCC) Overflow incontinence of urine Overflow incontinence Class 2 severe obesity due to excess calories with serious comorbidity and body mass index (BMI) of 36.0 to 36.9 in adult ([facility]) Lumbar spondylosis- Primary Lumbosacral spondylosis without myelopathy Primary osteoarthritis of right knee Acute right ankle pain Primary insomnia Persistent disorder of initiating or maintaining sleep Seasonal allergic rhinitis due to pollen Class 2 severe obesity due to excess calories with serious comorbidity and body mass index (BMI) of 37.0 to 37.9 in adult ([facility]) Lumbar spondylosis- Primary Lumbosacral spondylosis without myelopathy Primary osteoarthritis of right knee Postoperative pain of right knee Class 2 severe obesity due to excess calories with serious comorbidity and body mass index (BMI) of 37.0 to 37.9 in adult ([facility]) documented in this encounter [facility] (narrative)* Consultation (Routine) - Closed Specialty Diagnoses / Procedures Referred By Benjy rondon Referred To Contact Physical Therapy Diagnoses S/P TKR (total knee replacement), right Primary osteoarthritis of right knee Procedures OR OFFICE/OUTPATIENT NEW HIGH MDM 60 MINUTES Jr. Sonja Saleh DO [address] [place] [address] Tabatha Onofre, PT [address] [facility] [address] [place] [address] Referral ID Status Reason Start Date Expiration Date V isits Requested Visits Authorized [id number] Closed Consult and Treat 11/23/2023 05/21/2024 1 1 [facility] Healthcare[facility] for visit Narrative* Rehabilitation - Outpatient (Routine) - Authorized Specialty Diagnoses / Procedures Referred By Benjy rondon Referred To Contact Physical Therapy Diagnoses Presence of artificial knee joint, right Procedures OR MANUAL THERAPY TQS 1/> REGIONS EACH 15 MINUTES OR THER PX 1/> AREAS EACH 15 MIN NEUROMUSC REEDUCA OR THERAPEUTIC PX 1/> AREAS EACH 15 MIN EXERCISES PHYS/OCC THERAPY Jr. Sonja Shell, DO [address] [facility] [address] [place] [address] Phone: tel: fax: [facility] [address] [facility] [address] [place] [address] Phone: tel: fax: Referral ID Status Reason Start Date Expiration Date Visits Requested Visits Authorized [id number] Authorized Specialty Services Required 11/06/2023 01/04/2024 8 8 [facility] Healthcare Summary Purpose Family History No Family History Records Found Relationship Condition Age at Onset Recorded Date/T ryan father Diabetes mellitus Unknown Hypertension Unknown mother Diabetes mellitus Unknown Advance Directives No Advanced Directives Records Found Advance Directive Response Recorded Date/ Time Advance Directives No May 21 8:54am Advance Directive Response Recorded Date/ Time Advance Directives No May 21 9:54am Reason for Referral Specialty Diagnoses / Procedures Referred By Benjy t Referred To Contact Diagnoses Primary osteoarthritis of left knee Terry Mclaughlin MD [address] [place] [address] Referral ID Status Reason Start Date Expiration Date Visits Re quested Visits Authorized [id number] Closed 1 1 Chief Complaint and Reason for Visit Chief Complaint Admit Date REFF BY DR. SONJA SALEH March 1:02pm KNEE PAIN May 11, 2024 10: 08am Reason for Visit Admit Date Other chronic pain April 13, 2024 1:02pm Primary osteoarthritis of right knee Feb ruary 2024 1:02pm Chief Complaint Admit Date REFF BY DR. SONJA SALEH March 1:02pm Chief Complaint Admit Date REFF BY DR. SONJA SALEH March 1:02pm KNEE PAIN May 11, 2024 10: 08am FOLLOW UP AFTER PROCEDURE May 23 12:13pm Chief Complaint Admit Date REFF BY DR. SONJA SALEH March 1:02pm KNEE PAIN May 11, 2024 10: 08am FOLLOW UP AFTER PROCEDURE May 23 12:13pm Amb Documentation May 30, 2024 3:2 1pm KNEE PAIN May 30, 2024 3:2 2pm pain June 01, 2024 7:5 9am Reason for Visit Admit Date Other chronic pain April 13, 2024 1:02pm Primary osteoarthritis of right knee Feb ruary 2024 1:02pm Other chronic pain May 23, 2024 12:1 3pm Primary osteoarthritis of right knee Apr il 2024 12:13pm Chief Complaint Admit Date REFF BY DR. SONJA SALEH March 1:02pm KNEE PAIN May 11, 2024 10: 08am FOLLOW UP AFTER PROCEDURE May 23 12:13pm Amb Documentation May 30, 2024 3:2 1pm KNEE PAIN May 30, 2024 3:2 2pm pain June 01, 2024 7:5 9am pain June 01, 2024 9:2 3am f/u after ablation June 20, 2024 1:35pm Reason for Visit Admit Date Other chronic pain April 13, 2024 1:02pm Primary osteoarthritis of right knee Feb ruary 2024 1:02pm Other chronic pain May 23, 2024 12:1 3pm Primary osteoarthritis of right knee Apr il 2024 12:13pm Myofascial muscle pain June 20, 2024 1:3 5pm Other chronic pain June 20, 2024 1:35pm Primary osteoarthritis of right knee June 20, 2024 1:35pm Chief Complaint Admit Date REFF BY DR. SONJA SALEH March 1:02pm KNEE PAIN May 11, 2024 10: 08am FOLLOW UP AFTER PROCEDURE May 23 12:13pm Amb Documentation May 30, 2024 3:2 1pm KNEE PAIN May 30, 2024 3:2 2pm pain June 01, 2024 7:5 9am pain June 01, 2024 9:2 3am f/u after ablation June 20, 2024 1:35pm TPI SUPRAPATELLAR AREA June 30, 2024 2: 03pm Reason for Visit Admit Date Other chronic pain April 13, 2024 1:02pm Primary osteoarthritis of right knee Feb ruary 2024 1:02pm Other chronic pain May 23, 2024 12:1 3pm Primary osteoarthritis of right knee Apr il 2024 12:13pm Myofascial muscle pain June 20, 2024 1:3 5pm Other chronic pain June 20, 2024 1:35pm Primary osteoarthritis of right knee June 20, 2024 1:35pm Myofascial muscle pain June 30, 2024 2: 03pm Other chronic pain June 30, 2024 2:03p m Additional Source Comments INFORMATION SOURCE (unrecogn ized section and content) DATE CREATED AUTHOR 06/20/2022 [facility] DATE CREATED AUTHOR AUTHOR'S ORGANIZ ATION 06/21/2024 [facility] DATE CREATED AUTHOR AUTHOR'S ORGANIZ ATION 09/21/2024 [facility] DATE CREATED AUTHOR AUTHOR'S ORGANIZ ATION 09/24/2024 [facility] DATE CREATED AUTHOR AUTHOR'S ORGANIZ ATION 09/25/2024 [facility] Reason for Visit (unrecogniz ed section and content) Reason Comments Med Refill Reason Comments Dizziness Feels like she is go ing to pass out Reason Onset Date Comments re: PT 11/12/2023 Tried to contact re: last scheduled PT on 11/09 was a cancellation and requested a call to check status and if more PT can be scheduled. Call Back 11/16/2023 She contacted an d I advised the need to fu w/ Delfino's office to see if scheduling out is able re: PT on-hold. Reason Comments Pain Specialty Diagnoses / Procedures Referred By Contac t Referred To Contact Physical Therapy Diagnoses Presence of artificial knee joint, right Procedures OR MANUAL THERAPY TQS 1/> REGIONS EACH 15 MINUTES OR THER PX 1/> AREAS EACH 15 MIN NEUROMUSC REEDUCA OR THERAPEUTIC PX 1/> AREAS EACH 15 MIN EXERCISES PHYS/OCC THERAPY SS Jr. Sonja Saleh, DO [address] [facility] [address] [place] [address] [facility] [address] [facility] [address] [place] [address] Referral ID Status Reason Start Date Expiration Date Visits Requested Visits Authorized [id number] Authorized Specialty Services Required 11/06/2023 01/04/2024 8 8 Reason Onset Date Comments Med Refill 12/14/2023 Reason Comments Pain Reason Onset Date Comments Med Refill 01/18/2024 Referral ID Status Reason Start Date Expiration Date Visits Requested Visits Authorized [id number] Authorized Specialty Services Required 10/22/2023 12/07/2023 2 2 Reason Onset Date Comments refill 09/30/2023 Reason Onset Date Comments Med Refill 10/12/2023 Specialty Diagnoses / Procedures Referred By Contac t Referred To Contact Physical Therapy Diagnoses Presence of artificial knee joint, right Procedures OR OFFICE/OUTPATIENT NEW HIGH MDM 60 MINUTES Jr. Sonja Saleh, DO [address] [facility] [address] [place] [address] [facility] [address] [facility] [address] [place] [address] Referral ID Status Reason Start Date Expiration Date Visits Requested Visits Authorized [id number] Authorized Specialty Services Required 09/09/2023 12/07/2023 12 12 Referral ID Status Reason Start Date Expiration Date V isits Requested Visits Authorized [id number] Closed Specialty Services Required 09/09/2023 12/07/2023 12 12 Reason Onset Date Comments Med Refill 10/27/2023 Reason Onset Date Comments NC/NS for PT 11/04/2023 Tried to contact re: NC/NS for last scheduled PT; had to lm. I requested a call back due to she has an ext on the referral dated to begin 11/05. Call Back 11/04/2023 She called azeem garcia that the appt was marked wrong on calendar; we rs for 11/05. Reason Onset Date Comments Med Refill 02/08/2024 Reason Comments Annual Exam Reason Onset Date Comments Pain 03/01/2024 Reason Onset Date Comments Swelling in RT TKA 03/29/2024 Reason Onset Date Comments Med Refill 04/27/2024 Reason Onset Date Comments Med Refill 05/23/2024 Reason Onset Date Comments Med Refill 05/31/2024 Reason Comments Follow-up 6m Ankle Pain Right ankle Reason Comments Gynecologic Exam LMP: 2005HRT: NoneLa st pap 09-01-23 LGSIL, HPV pos. Last mammogram 09-07-23 [facility].Denies breast, urinary, or bowel concerns. Reason Comments Follow-up Reason Comments Follow-up Adipex f/u UTI Possible uti Reason Onset Date Comments unable to complete mri 09/23/2024 Care Teams (unrecognized sec tion and content) Hris Specialist Relationship Specialty Start Date End Date Terry Mclaughlin MD PCP - General Cardiology 07/01/22 Hris Specialist Relationship Specialty Start Date End Date Terry Mclaughlin MD [address] [place] [phone] PCP - General Family Medicine 06/11/23 Hris Specialist Relationship Specialty Start Date End Date Terry Mclaughlin MD [address] [place] [phone] PCP - General Family Medicine 06/11/23 Hris Specialist Relationship Specialty Start Date End Date Terry Mclaughlin MD [address] [place] [phone] PCP - General Family Medicine 06/11/23 Hris Specialist Relationship Specialty Start Date End Date Terry Mclaughlin MD [address] [place] [phone] PCP - General Family Medicine 06/11/23 Terry Mclaughlin MD [address] [place] [address] PCP - [employer] 10/18/23 Hris Specialist Relationship Specialty Start Date End Date Terry Mclaughlin MD [address] [place] [phone] PCP - General Family Medicine 06/11/23 Terry Mclaughlin MD [address] [place] [phone] PCP - [employer] 10/18/23 Hris Specialist Relationship Specialty Start Date End Date Terry Mclaughlin MD [address] [place] [phone] PCP - General Family Medicine 06/11/23 Terry Mclaughlin MD [address] [place] [phone] PCP - [employer] 10/18/23 Hris Specialist Relationship Specialty Start Date End Date Terry Mclaughlin MD [address] [place] [phone] PCP - General Family Medicine 06/11/23 Terry Mclaughlin MD [address] [place] [address] PCP - [employer] 10/18/23 Hris Specialist Relationship Specialty Start Date End Date Terry Mclaughlin MD [address] [place] [phone] PCP - General Family Medicine 06/11/23 Terry Mclaughlin MD [address] [place] [phone] PCP - [employer] 10/18/23 Hris Specialist Relationship Specialty Start Date End Date Terry Mclaughlin MD [address] [place] [phone] PCP - General Family Medicine 06/11/23 Terry Mclaughlin MD [address] [place] [phone] PCP - [employer] 10/18/23 Hris Specialist Relationship Specialty Start Date End Date Terry Mclaughlin MD [address] [place] [phone] PCP - General Family Medicine 06/11/23 Terry Mclaughlin MD [address] [place] [phone] PCP - [facility] 10/18/23 Hris Specialist Relationship Specialty Start Date End Date Terry Mclaughlin MD [address] [place] [address] PCP - General Family Medicine 06/11/23 Terry Mclaughlin MD [address] [place] [address] PCP - [facility] 10/18/23 Hris Specialist Relationship Specialty Start Date End Date Terry Mclaughlin MD [address] [place] [address] PCP - General Family Medicine 06/11/23 Terry Mclaughlin MD [address] [place] [address] PCP - [facility] 10/18/23 Hris Specialist Relationship Specialty Start Date End Date Terry Mclaughlin MD [address] [place] [address] PCP - General Family Medicine 06/11/23 Terry Mclaughlin MD [address] [place] [address] PCP - [facility] 10/18/23 Hris Specialist Relationship Specialty Start Date End Date Terry Mclaughlin MD [address] [place] [address] PCP - General Family Medicine 06/11/23 Terry Mclaughlin MD [address] [place] [address] PCP - [facility] 10/18/23 Hris Specialist Relationship Specialty Start Date End Date Terry Mclaughlin MD [address] [place] [address] PCP - General Family Medicine 06/11/23 Terry Mclaughlin MD [address] [place] [address] PCP - [facility] 10/18/23 Hris Specialist Relationship Specialty Start Date End Date Terry Mclaughlni MD [address] [place] [address] PCP - General Family Medicine 06/11/23 Terry Mclaughlin MD [address] [place] [address] PCP - [facility] 10/18/23 Hris Specialist Relationship Specialty Start Date End Date Terry Mclaughlin MD [address] [place] [address] PCP - General Family Medicine 06/11/23 Terry Mclaughlin MD [address] [place] [address] PCP - [facility] 10/18/23 Hris Specialist Relationship Specialty Start Date End Date Terry Mclaughlin MD [address] [place] [address] PCP - General Family Medicine 06/11/23 Terry Mclaughlin MD [address] [place] [address] PCP - [facility] 10/18/23 Hris Specialist Relationship Specialty Start Date End Date Terry Mclaughlin MD [address] [place] [address] PCP - General Family Medicine 06/11/23 Hris Specialist Relationship Specialty Start Date End Date Terry Mclaughlin MD [address] [place] [address] PCP - General Family Medicine 06/11/23 Hris Specialist Relationship Specialty Start Date End Date Terry Mclaughlin MD [address] [place] [address] PCP - General Family Medicine 06/11/23 Hris Specialist Relationship Specialty Start Date End Date Terry Mclaughlin MD [address] [place] [address] PCP - General Family Medicine 06/11/23 Terry Mclaughlin MD [address] [place] [address] PCP - [facility] 10/18/23 Hris Specialist Relationship Specialty Start Date End Date Terry Mclaughlin MD [address] [place] [address] PCP - General Family Medicine 06/11/23 Hris Specialist Relationship Specialty Start Date End Date Terry Mclaughlin MD [address] [place] [address] PCP - General Family Medicine 06/11/23 Hris Specialist Relationship Specialty Start Date End Date Terry Mclaughlin MD [address] [place] [address] PCP - General Family Medicine 06/11/23 Hris Specialist Relationship Specialty Start Date End Date Terry Mclaughlin MD [address] [place] [address] PCP - General Family Medicine 06/11/23 Hris Specialist Relationship Specialty Start Date End Date Terry Mclaughlin MD [address] [place] [address] PCP - General Family Medicine 06/11/23 Hris Specialist Relationship Specialty Start Date End Date Terry Mclaughlin MD [address] [place] [address] PCP - General Family Medicine 06/11/23 Hris Specialist Relationship Specialty Start Date End Date Terry Mclaughlin MD [address] [place] [phone] PCP - General Family Medicine 06/11/23 Hris Specialist Relationship Specialty Start Date End Date Terry Mclaughlin MD [address] [place] [address] PCP - General Family Medicine 06/11/23 Hris Specialist Relationship Specialty Start Date End Date Terry Mclaughlin MD [address] [place] [address] PCP - General Family Medicine 06/11/23 Hris Specialist Relationship Specialty Start Date End Date Terry Mclaughlin MD [address] [place] [address] PCP - General Family Medicine 06/11/23 Hris Specialist Relationship Specialty Start Date End Date Terry Mclaughlin MD [address] [place] [address] PCP - General Family Medicine 06/11/23 Hris Specialist Relationship Specialty Start Date End Date Terry Mclaughlin MD [address] [place] [address] PCP - General Family Medicine 06/11/23 Terry Mclaughlin MD [address] [place] [address] PCP - [facility] 10/18/23 Hris Specialist Relationship Specialty Start Date End Date Terry Mclaughlin MD [address] [place] [address] PCP - General Family Medicine 06/11/23 Terry Mclaughlin MD [address] [place] [address] PCP - [facility] 10/18/23 Hris Specialist Relationship Specialty Start Date End Date Terry Mclaughlin MD [address] [place] [address] PCP - General Family Medicine 06/11/23 Terry Mclaughlin MD [address] [place] [address] PCP - [facility] 10/18/23 Hris Specialist Relationship Specialty Start Date End Date Terry Mclaughlin MD [address] [place] [address] PCP - General Family Medicine 06/11/23 Terry Mclaughlin MD [address] [place] [address] PCP - [facility] 10/18/23 Team Status: Active Member Role Status Dates PHYSICIAN NO FAMILY Primary Care Provider Active Team Status: Inactive Member Role Status Dates PHYSICIAN NO FAMILY Primary Care Provider Active Start: April 13, 2024 End: April 13, 2024 Luciano Reyes MD Attending Provider Active Sta rt: April 13, 2024 End: April 13, 2024 Sonja Saleh Jr, DO Referring Provider Active Start: April 13, 2024 End: April 13, 2024 Hris Specialist Relationship Specialty Start Date End Date Terry Mclaughlin MD [address] [place] [phone] PCP - General Family Medicine 06/11/23 Terry Mclaughlin MD [address] [place] [address] PCP - [facility] 10/18/23 Team Status: Active Member Role Status Dates Terry Mclaughlin MD Primary Care Provider Active Team Status: Inactive Member Role Status Dates Luciano Reyes MD Attending Provider Active Sta rt: May 11, 2024 End: May 11, 2024 Terry Mclaughlin MD Primary Care Provider Active S tart: May 11, 2024 End: May 11, 2024 Team Status: Inactive Member Role Status Dates Luciano Reyes MD Attending Provider Active Sta rt: May 23, 2024 End: May 23, 2024 Teryr Mclaughlin MD Primary Care Provider Active S tart: May 23, 2024 End: May 23, 2024 Team Status: Active Member Role Status Dates Terry Mclaughlin MD Primary Care Provider Active S tart: May 30, 2024 Luciano Reyes MD Attending Provider Active Sta rt: May 30, 2024 Team Status: Active Member Role Status Dates Luciano Reyes MD Attending Provider, Other Provider Active Start: May 30, 2024 Terry Mclaughlin MD Primary Care Provider Active S tart: May 30, 2024 Team Status: Inactive Member Role Status Dates Terry Mclaughlin MD Primary Care Provider Active S tart: June 01, 2024 End: June 01, 2024 Luciano Reyes MD Attending Provider Active Sta rt: June 01, 2024 End: June 01, 2024 Team Status: Active Member Role Status Dates Terry Mclaughlin MD Primary Care Provider Active S tart: June 01, 2024 Luciano Reyes MD Attending Provider, Other Provider Active Start: June 01, 2024 Team Status: Inactive Member Role Status Dates Terry Mclaughlin MD Primary Care Provider Active S tart: June 20, 2024 End: June 20, 2024 Luciano Reyes MD Attending Provider Active Sta rt: June 20, 2024 End: June 20, 2024 Hris Specialist Relationship Specialty Start Date End Date Terry Mclaughlin MD [address] [place] [address] PCP - General Family Medicine 06/11/23 Hris Specialist Relationship Specialty Start Date End Date Terry Mclaughlin MD [address] [place] [address] PCP - General Family Medicine 06/11/23 Team Status: Inactive Member Role Status Dates Terry Mclaughlin MD Primary Care Provider Active S tart: June 30, 2024 End: June 30, 2024 Luciano Reyes MD Attending Provider Active Sta rt: June 30, 2024 End: June 30, 2024 Hris Specialist Relationship Specialty Start Date End Date Terry Mclaughlin MD [address] [place] [address] PCP - General Family Medicine 06/11/23 Hris Specialist Relationship Specialty Start Date End Date Terry Mclaughlin MD [address] [place] [phone] PCP - General Family Medicine 06/11/23 Hris Specialist Relationship Specialty Start Date End Date Terry Mclaughlin MD [address] [place] [address] PCP - General Family Medicine 06/11/23 Hris Specialist Relationship Specialty Start Date End Date Terry Mclaughlin MD [address] [place] [address] PCP - General Family Medicine 06/11/23 Hris Specialist Relationship Specialty Start Date End Date Terry Mclaughlin MD [address] [place] [address] PCP - General Family Medicine 06/11/23 Hris Specialist Relationship Specialty Start Date End Date Terry Mclaughlin MD [address] [place] [address] PCP - General Family Medicine 06/11/23 Goals (unrecognized section and content) Goals may be documented in a n alternate section FOR RECORDS PERTAINING TO PATIENTS WHO ARE [...] BE BASED ON THE PRIMARY CLINICAL RECORDS. [employer] [facility] provides no warranty or guarantee of the accuracy or completeness of information in this document.
--- OUTSIDE RECORDS SUMMARY | 2024-10-03 13:03 | XMS_ITS | CCD ---
Author Organization [facility] Inform ion Partnership [facility] Care Team Providers Care Champion Of Sustainable [employer] Name Role Phone ARNOLDO, DR TERRY Hines [...] Admitting UnavailTerry Leung MD Primary Care Provider [phone] Terry Mclaughlin MD Primary Care Provider [phone] Terry Mclaughlin MD Unavailable Luciano Reyes MD Attending Provider Terry Mclaughlin MD Primary Care Provider [phone] Luciano Reyes Attending Unavailable Terry Mclaughlin Primary Care Unavailable Luciano Reyes Admitting Unavailable Luciano Reyes Attending Unavailable Terry Mclaughlin Primary Care Unavailable Luciano Reyes Admitting Unavailable STEPANIC, JR., SONJA Ivory Attending Unavaila ble STEPANIC, JR., SONJA Ivoyr Attending Unavaila ble NADERETERRY Barnes Attending Unavailable [...] STEPANIC, JR., SONJA Ivory Referring Unavaila ble BRINKNUA Attending Unavailable STEPANIC, JR., SONJA Ivory Referring [...] Ivory Attending Unavailabl e DELFINO RICHMOND, SONJA Ivory Referring Unavailabl Chase Peacock Attending Unavailable Chase Hogan Referring Unavailable Allergies Allergy Classification Reported Allergen(s) Allergy Type Date of Onset Reaction(s) Facility (1 source) bee venom Drug allergy (disorder) 04-03-19 14 [facility] Repository (7 sources) Erythromycin Drug Allergy 04-03-19 14 rash [facility] Repository (1 source) Sulfonamides (Antibiotic) Drug allergy (disorder) 04-03-19 14 [facility] (20 sources) Erythromycin; Translations: [ERYTHROMYCIN] Drug Allergy 06-19-19 23 Rash [facility] Healthcare (20 sources) Honey bee venom Allergy to substance 08-30-19 23 Anaphylaxis [facility] (20 sources) Sulfamethoxazole / Trimethoprim Drug Allergy 07-17-19 23 Rash [facility] (20 sources) Sulfonamides (Antibiotic) Drug Allergy 06-19-19 23 Swelling, Rash [facility] Healthcare (7 sources) Sulfamethoxazole; Translations: [sulfamethoxazole] Drug Allergy 04-13-19 [facility] (9 sources) Sulfonamides (Antibiotic); Translations: [Sulfa (Sulfonamide Antibiotics)] Allergy to substance 06-19-19 [facility] (7 sources) Trimethoprim; Translations: [trimethoprim] Drug Allergy 04-13-19 [facility] (7 sources) venom-honey bee; Translations: [venom-honey bee] Allergy to substance 04-13-19 [facility] (1 source) Erythromycin Drug Allergy 05-24-19 [facility] Repository Medications Current Medications Medication Drug Class(es) [...] times a day as needed. 06/12/2022 Active [id number] 0.3 ml EPINEPHrine 1 mg/ml auto-injector (20 [...] (BMI) of 37.0 to 37.9 in adult ([facility]) Take 1 tablet (37.5 mg) by mouth [...] 2024 1:00am take 1 capsule by mo [facility] every twenty-four hours in the morning [...] daily as needed for pain HYDROcodone-acetam inophen ([place]) 5-325 MG tablet Indications: Lumbar spondylosis Take 1 tablet by mouth 4 (four) times a day as needed for moderate pain or severe pain for up to 15 days 60 tablet 08/22/2024 09/06/2024 Start: 05-31-2024 End: 06-15-2024 take 1 tablet by mouth four times daily as needed for pain HYDROcodone-acetaminophen ([place]gden) 5-325 MG tablet Indications: Lumbar spondylosis Take [...] times daily as needed for pain HYDROcodone-acetaminophen ([place]gden) 5-325 MG tablet Indications: Lumbar spondylosis Take 1 tablet by mouth 4 (four) times a day as needed for moderate pain or severe pain for up to 15 days 60 tablet 02/24/2024 03/10/2024 Active Start: 02-08-2024 End: 02-15-2024 take 1 tablet by mouth four times daily as needed for pain HYDROcodone-acetaminophen (Ogden) 5-325 MG tablet Indications: Primary osteoarthritis of left knee Take 1 tablet by mouth 4 (four) times a day as needed for moderate pain or severe pain for up to 7 days 28 tablet 02/08/2024 02/15/2024 Active Start: 12-15-2023 End: 12-22-2023 take 1 tablet by mouth four times daily as needed for pain HYDROcodone-acetaminophen ([place]gden) 5-325 MG tablet Indications: Primary osteoarthritis of left knee Take 1 tablet by mouth 4 (four) times a day as needed for moderate pain or severe pain for up to 7 days 28 tablet 12/15/2023 12/22/2023 Start: 10-28-2023 End: 11-04-2023 take 1 tablet by mouth four times daily as needed for pain HYDROcodone-acetaminophen ([place]gden) 5-325 MG tablet Indications: Primary osteoarthritis of left knee Take 1 tablet by mouth 4 (four) times a day as needed for moderate pain or severe pain for up to 7 days 28 tablet 10/28/2023 11/04/2023 Active Start: 06-24-2022 take 1 tablet by bijan four times daily as needed HYDROcodone-acetaminophen ([place]gden) 5-325 MG tablet Take 1 tablet by [...] (BMI) of 36.0 to 36.9 in adult ([facility])] Onset: 02-18-2023 02-24-2024 Chronic Other screening for [...] current use of drug therapy; 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 Ordering Physician: Terry Mclaughlin M.D. Date of Service: 08/22/24 Procedure(s): XR ankle RT 2V Accession Number(s): [id number] cc: Terry Mclaughlin M.D. [address] [place] [id number] Patient Name: PHUONG RANDHAWA MRN: [facility]:[id number] date: 1960 Sex: F Assigned Patient Location: LAB Current Patient Location: LAB Accession/Order Number: [id number] Exam Date: 08/22/2024 12:04 Report Date: 08/22/2024 [...] Robledo M.D. 08/22/2024 12:06 PM Dictation Location: [place] [address] Electronically authenticated by: [id number] Y Date: 08/22/2024 12:06 Dictated By: Adriana Robledo M.D. Signed By: 08/22/24 1209 DD/ 1206 TD/TT: Billing Assistant: [facility] Radiology, Radiologist, - 08/22/2024 [place] [address] XRay Report Signed Patient: PHUONG RANDHAWA MR#: [id number] : 1960 Acct:[id number] Age/Sex: 63 / F ADM Date: 08/22/24 Loc: LAB Attending Dr: Terry Mclaughlin M.D. Ordering Physician: Terry Mclaughlin M.D. Date of Service: 08/22/24 Procedure(s): XR ankle RT 2V Accession Number(s): [id number] cc: Terry cMlaughlin M.D. The [place] [address] Patient Name: PHUONG RANDHAWA MRN: [id number] date: 1960 Sex: F Assigned Patient Location: LAB Current Patient Location: LAB Accession/Order Number: [id number] Exam Date: 08/22/2024 12:04 Report Date: 08/22/2024 [...] Robledo M.D. 08/22/2024 12:06 PM Dictation Location: [place] [address] Electronically authenticated by: [id number] Y Date: 08/22/2024 12:06 Dictated By: Adriana Robledo M.D. Signed By: 08/22/24 1209 DD/ 1206 TD/TT: Billing Assistant: [facility] Responde Ai Radiology Study observation (narrative) [facility] XR Ankle - right 2 ViewsOrde red By: Radiologist Radiology on 08-22-2024 [facility] moziycar e Work Phone: CT KNEE RT WO [...] Sylvester MD on 02/22/2024 12:46 PM Normal [facility] XR Knee - right 3 [facility] [...] patella. Impression: Unremarkable right total knee arthroplasty. [facility] [employer] Radiology Study observation (narrative) [facility] ALL CBC WITH AUTO DIFFon BASOPHILS ABSOLUTE AUTO 0.1 [facility] Basophils/100 WBC (Bld) 0.8 % 0.2 - 2.0 % [facility] Eosinophils/100 WBC (Bld) 2.5 % 0.9 - 7.0 % [facility] Erythrocyte distribution width (RBC) [Ratio] 14.2 % 11.0 - 15.0 % [facility] Hematocrit (Bld) [Volume fraction] 40.3 % 36.0 - 48.0 % [facility] Hem[facility] (Bld) [Mass/Vol] 12.9 g/dL 12.0 - 16.0 g/dL [facility] IMMATURE GRANULOCYTES ABS AUTO 0.06 High [facility] Immature granulocytes/100 WBC (Bld) 0.9 % High 0.0 - 0.5 % [facility] Interpretation and review of laboratory results Abnormal [facility] LYMPHOCYTES ABSOLUTE AUTO 1.1 Low [facility] Lymphocytes/100 WBC (Bld) 17.7 % Low 20.5 - 60.0 % [facility] MCH (RBC) [Entitic mass] 28.4 pg 26.7 - 34.0 pg [facility] MCHC (RBC) [Mass/Vol] 32.0 g/dL 29.9 - 35.2 g/dL [facility] MCV (RBC) [Entitic vol] 88.6 fL 81.0 - 99.0 fL [facility] MONOCYTES ABSOLUTE AUTO 0.5 [facility] Monocytes/100 WBC (Bld) 7.7 % 1.7 - 12.0 % [facility] NEUTROPHILS ABSOLUTE AUTO 4.5 [facility] Neutrophils/100 WBC (Bld) 70.4 % 43.0 - 75.0 % [facility] Platelet mean volume (Bld) [Entitic vol] 10.1 fL 9.5 - 13.5 fL [facility] Health[facility] are [facility] EO # 0.2 [facility] PLT 255 [facility] RBC 4.55 [facility] TB WBC 6.4 [facility] ALL CBC WITH AUTO DIFFon BASOPHILS ABSOLUTE AUTO 0.1 [facility] Basophils/100 WBC (Bld) 0.8 % 0.2 - 2.0 % [facility] Eosinophils/100 WBC (Bld) 3.0 % 0.9 - 7.0 % [facility] Erythrocyte distribution width (RBC) [Ratio] 14.1 % 11.0 - 15.0 % [facility] Hematocrit (Bld) [Volume fraction] 40.0 % 36.0 - 48.0 % [facility] Hemoglobin (Bld) [Mass/Vol] 12.4 g/dL 12.0 - 16.0 g/dL [facility] IMMATURE GRANULOCYTES ABS AUTO 0.05 High [facility] Immature granulocytes/100 WBC (Bld) 0.8 % High 0.0 - 0.5 % [facility] Interpretation and review of laboratory results Abnormal [facility] LYMPHOCYTES ABSOLUTE AUTO 1.4 [facility] Lymphocytes/100 WBC (Bld) 22.9 % 20.5 - 60.0 % [facility] MCH (RBC) [Entitic mass] 27.9 pg 26.7 - 34.0 pg [facility] MCHC (RBC) [Mass/Vol] 31.0 g/dL 29.9 - 35.2 g/dL [facility] MCV (RBC) [Entitic vol] 89.9 fL 81.0 - 99.0 fL [facility] MONOCYTES ABSOLUTE AUTO 0.4 [facility] Monocytes/100 WBC (Bld) 6.8 % 1.7 - 12.0 % [facility] NEUTROPHILS ABSOLUTE AUTO 3.9 [facility] Neutrophils/100 WBC (Bld) 65.7 % 43.0 - 75.0 % [facility] Platelet mean volume (Bld) [Entitic vol] 10.0 fL 9.5 - 13.5 fL [facility] EO # 0.2 [facility] PLT 246 [facility] RBC 4.45 [facility] WBC 6.0 [facility] PAP ACOG PANEL 2: 30 to 65on 06-18-2022 . . Normal [facility] Comment on above: Result Comment: Perf ormed at: WB Performed By: #### [id number] #### [facility] [address] [place] [address] [address] Laurita Hooker Age Gdln ACOG Testing 30-65 Normal [facility] Comment on above: Performed By: #### [id number] #### [facility] [address] [place] [address] [address] Laurita Hooker DIAGNOSIS: Comment Abnormal [facility] Comment on above: Result Comment: EPIT HELIAL CELL ABNORMALITY. LOW GRADE SQUAMOUS INTRAEPITHELIAL LESION (LSIL). Performed at: WB Performed By: #### [id number] #### [facility] [address] [place] [address] [address] Laurita Hooker Electronically signed by: Comment Normal [facility] Comment on above: Result Comment: Leeann Carrera MD, Pathologist Performed at: WB Performed By: #### 4 [id number] #### [facility] [address] [place] [address] [address] Laurita Hooker HPV Aptima Positive Abnormal Negative [facility] Comment on above: Result Comment: This nucleic acid amplification test detects fourteen high-risk HPV types (16,18,31,33,35,39,45,51,52,56,58,59,66,68) without differentiation. Performed at: =G Performed By: #### [id number] #### [facility] [address] [place] [address] [address] Laurita Hooker HPV Genotype Reflex Comment Normal [facility] Comment on above: Result Comment: Crit eria not met, HPV Genotype not performed. Performed at: WB Performed By: #### [id number] #### [facility] [address] [place] [address] Dr. Laurita Hooker Methodology: Comment Normal [facility] Comment on above: Result Comment: This liquid based ThinPrep(R) pap test was screened with the use of an image guided system. Performed at: WB Performed By: #### [id number] #### [facility] [address] [place] [address] Dr. Laurita Hooker Note: Comment Normal [facility] Comment on above: Result Comment: The Pap smear is a screening test designed to aid in the detection of premalignant and malignant conditions of the uterine cervix. It is not a diagnostic procedure and should not be used as the sole means of detecting cervical cancer. Both false-positive and false-negative reports do occur. . Performed at: WB Performed By: #### [id number] #### [facility] [address] [place] [address] Dr. Laurita Hooker Pathologist Provided ICD10 Comment Normal [facility] Comment on above: Result Comment: [id number]. [id number] Performed at: WB Performed By: #### 4 [id number] #### [facility] [address] [place] [address] Dr. Laurita Hooker Performed by: Comment Normal [facility] Comment on above: Result Comment: Ashley Pena, Spool Fixer (ASCP) Performed at: WB Performed By: #### 4 [id number] #### [facility] [address] [place] [address] Dr. Laurita Hooker Recommendation: Comment Abnormal [facility] Comment on above: Result Comment: Sugg est follow up as clinically appropriate. Performed at: WB Performed By: #### 4 [id number] #### [facility] [address] [place] [address] Dr. Laurita Hooker Specimen adequacy: Comment Normal [facility] Comment on above: Result Comment: Sati sfactory for evaluation. Endocervical and/or squamous metaplastic cells (endocervical component) are present. Performed at: WB Performed By: #### 4 [id number] #### [facility] [address] [place] [address] [address] Laurita Hooker MG MAMM SCREEN 3D JAYCE CADon 06-16-2022 MG MAMM SCREEN 3D JAYCE CAD Patient: PHUONG RANDHAWA Exam Date: 06/16/2022 : 1960 Gender:F Ordering : DR BRAD CALERO . Admission #: [id number] Family : Order #: [id number] CLICK HERE TO VIEW EXAM RADIOLOGY REPORT [...] Treatments None Family Cancers None LOCATION: [facility] BREAST COMPOSITION: Scattered areas fibroglandular density. [...] M.D. on 06/16/2022 at 14:21 Normal [facility] XR DEXA BONE DENSITYon 06-16 XR [...] by: BRAD REBECCA Date: 2022-06-16 15:27 Normal [facility] PAP ACOG PANEL 2: 30 to 65on 03-19-2022 . . Normal [facility] Comment on above: Result Comment: Perf ormed at: WB Performed By: #### 4 [id number] #### [facility] [address] [place] [address] [address] Laurita Hooker Age Gdln ACOG Testing 30-65 Normal [facility] Comment on above: Performed By: #### [id number] #### [facility] [address] [place] [address] [address] Laurita Hooker DIAGNOSIS: Comment Abnormal [facility] Comment on above: Result Comment: EPIT HELIAL CELL ABNORMALITY. LOW-GRADE SQUAMOUS INTRAEPITHELIAL LESION (LSIL); (ENCOMPASSING HUMAN PAPILLOMAVIRUS /MILD DYSPLASIA/CIN1). Performed at: WB Performed By: #### [id number] #### [facility] [address] [place] [address] [address] Laurita Hooker Electronically signed by: Comment Normal [facility] Comment on above: Result Comment: Allie Nowak MD, Pathologist Performed at: WB Performed By: #### 4 [id number] #### [facility] [address] [place] [address] [address] aLurita Hooker HPV Aptima Positive Abnormal Negative [facility] Comment on above: Result Comment: This nucleic acid amplification test detects fourteen high-risk HPV types (16,18,31,33,35,39,45,51,52,56,58,59,66,68) without differentiation. Performed at: =G Performed By: #### 4 [id number] #### [facility] [address] [place] [address] [address] Laurita Hooker HPV Genotype Reflex Comment Normal [facility] Comment on above: Result Comment: Crit eria not met, HPV Genotype not performed. Performed at: WB Performed By: #### 4 [id number] #### [facility] [address] [place] [address] [address] Laurita Hooker Methodology: Comment Normal [facility] Comment on above: Result Comment: This liquid based ThinPrep(R) pap test was screened with the use of an image guided system. Performed at: WB Performed By: #### 4 [id number] #### [facility] [address] [place] [address] [address] Laurita Hooker Note: Comment Normal [facility] Comment on above: Result Comment: The Pap smear is a screening test designed to aid in the detection of premalignant and malignant conditions of the uterine cervix. It is not a diagnostic procedure and should not be used as the sole means of detecting cervical cancer. Both false-positive and false-negative reports do occur. . Performed at: WB Performed By: #### 4 [id number] #### [facility] [address] [place] [address] [address] Laurita Hooker Pathologist Provided ICD10 Comment [facility] Comment on above: Result Comment: [id number]. [id number] Performed at: WB Performed By: #### 4 [id number] #### [facility] [address] [place] [address] Dr. Laurita Hooker Performed by: Comment Normal [facility] Comment on above: Result Comment: Kamran Krishnamurthy, Spool Fixer (ASCP) Performed at: [facility] Performed By: #### 4 [id number] #### [facility] [address] [place] [address] Dr. Laurita Hooker Recommendation: Comment Abnormal [facility] Comment on above: Result Comment: Sugg est follow up as clinically appropriate. Performed at: WB Performed By: #### 4 [id number] #### [facility] [address] [place] [address] Dr. Laurita Hooker Specimen adequacy: Comment Normal [facility] Comment on above: Result Comment: Sati sfactory for evaluation. Endocervical and/or squamous metaplastic cells (endocervical component) are present. Performed at: WB Performed By: #### 4 [id number] #### [facility] [address] [place] [address] Dr. Laurita Hooker PAP ACOG PANEL 2: 30 to 65on 09-17-2021 . . Normal [facility] Comment on above: Result Comment: Perf ormed at: WB Performed By: #### 4 [id number] #### [facility] [address] [place] [address] [address] Laurita Hooker Age Gdln ACOG Testing 30-65 Normal [facility] Comment on above: Performed By: #### 4 [id number] #### [facility] [address] [place] [address] Dr. Laurita Hooker DIAGNOSIS: Comment Normal [facility] Comment on above: Result Comment: NEGA TIVE FOR INTRAEPITHELIAL LESION OR MALIGNANCY. Performed at: WB Performed By: #### 4 [id number] #### [facility] [address] [place] [address] [address] Laurita Hooker HPV Aptima Positive Abnormal Negative [facility] Comment on above: Result Comment: This nucleic acid amplification test detects fourteen high-risk HPV types (16,18,31,33,35,39,45,51,52,56,58,59,66,68) without differentiation. Performed at: =G Performed By: #### 4 [id number] #### [facility] [address] [place] [address] Dr. Laurita Hooker HPV Genotype 16 Positive Abnormal Negative [facility] Comment on above: Result Comment: Perf ormed at: =G Performed By: #### [id number] #### [facility] [address] [place] [address] Dr. Laurita Hooker HPV Genotype 18,45 Negative Normal Negative [facility] Comment on above: Result Comment: Perf ormed at: =G Performed By: #### 4 [id number] #### [facility] [address] [place] [address] Dr. Laurita Hooker Methodology: Comment Normal [facility] Comment on above: Result Comment: This liquid based ThinPrep(R) pap test was screened with the use of an image guided system. Performed at: WB Performed By: #### 4 [id number] #### [facility] [address] [place] [address] Dr. Laurita Hooker Note: Comment Normal [facility] Comment on above: Result Comment: The Pap smear is a screening test designed to aid in the detection of premalignant and malignant conditions of the uterine cervix. It is not a diagnostic procedure and should not be used as the sole means of detecting cervical cancer. Both false-positive and false-negative reports do occur. . Performed at: WB Performed By: #### 4 [id number] #### [facility] [address] [place] [address] [address] Laurita Hooker Performed by: Comment Normal [facility] Comment on above: Result Comment: Mar Plunkett Spool Fixer (ASCP) Performed at: WB Performed By: #### 4 [id number] #### [facility] [address] [place] [address] [address] Laurita Hooker Specimen adequacy: Comment Normal [facility] Comment on above: Result Comment: Sati sfactory for evaluation. Endocervical and/or squamous metaplastic cells (endocervical component) are present. Performed at: WB Performed By: #### 4 [id number] #### [facility] [address] [place] [address] Dr. Laurita Hooker HEPATITIS PANEL, [facility] HBsAg Screen Negative Normal Negative [facility] Comment on above: Performed By: #### H EPACUT #### [facility] [address] [place] [address] Dr. Laurita Hooker HCV AB <0.1 Normal 0.0-0.9 [facility] Comment on above: Performed By: #### H EPACUT #### [facility] [address] [place] [address] Dr. Laurita Hooker Hep A Ab, IgM Negative Normal Negative [facility] Comment on above: Performed By: #### H EPACUT #### [facility] [address] [place] [address] Dr. Laurita Hooker Hep B Core Ab, IgM Negative Normal Negative [facility] Comment on above: Performed By: #### H EPACUT #### [facility] [address] [place] [address] Dr. Laurita Hooker Interpretation: Comment Normal [facility] Comment on above: Result Comment: Nega tive Not infected with HCV, unless recent infection is suspected or other evidence exists to indicate HCV infection. Performed By: #### H EPACUT #### [facility] [address] [place] [address] Dr. Laurita Hooker Vital Signs Date Time Vital Sign Value Performing Clinician Facility 09-22-2024 11:30-0400 Body height 165.1 cm Terry Mclaughlin MD Work Phone: [facility] 09-22-2024 11:30-0400 Body mass index (BMI) [Ratio] 36.11 kg/m2 Terry Mclaughlin MD Work Phone: [facility] 09-22-2024 11:30-0400 Body temperature 96.01 [degF] Terry Mclaughlin MD Work Phone: [facility] 09-22-2024 11:30-0400 Body weight 98.43 kg Terry Mclaughlin MD Work Phone: [facility] 09-22-2024 11:30-0400 Diastolic blood pressure 78 mm[Hg] Terry Mclaughlin MD Work Phone: [facility] 09-22-2024 11:30-0400 Heart rate 105 /min Terry Mclaughlin MD Work Phone: [facility] 09-22-2024 11:30-0400 Respiratory rate 20 /min Terry Mclaughlin MD Work Phone: [facility] 09-22-2024 11:30-0400 SaO2% (BldA) [Mass fraction] 96 % Terry Mclaughlin MD Work Phone: [facility] 09-22-2024 11:30-0400 Systolic blood pressure 140 mm[Hg] Terry Mclaughlin MD Work Phone: [facility] 09-05-2024 13:19-0400 Body height 165.1 cm Major Gallardo DO Work Phone: [facility] 09-05-2024 13:19-0400 Body mass index (BMI) [Ratio] 36.44 kg/m2 Major Gallardo DO Work Phone: [facility] 09-05-2024 13:19-0400 Body weight 99.34 kg Major Gallardo DO Work Phone: [facility] 09-05-2024 13:19-0400 Diastolic blood pressure 76 mm[Hg] Major Gallardo DO Work Phone: [facility] 09-05-2024 13:19-0400 Systolic blood pressure 126 mm[Hg] Major Gallardo DO Work Phone: [facility] 08-22-2024 09:46-0400 Body height 165.1 cm Terry Mclaughlin MD Work Phone: [facility] 08-22-2024 09:46-0400 Body mass index (BMI) [Ratio] 37.11 kg/m2 Terry Mclaughlin MD Work Phone: [facility] 08-22-2024 09:46-0400 Body temperature 97.81 [degF] Terry Mclaughlin MD Work Phone: [facility] 08-22-2024 09:46-0400 Body weight 101.15 kg Terry Mclaughlin MD Work Phone: [facility] 08-22-2024 09:46-0400 Diastolic blood pressure 62 mm[Hg] Terry Mclaughlin MD Work Phone: [facility] 08-22-2024 09:46-0400 Heart rate 107 /min Terry Mclaughlin MD Work Phone: [facility] 08-22-2024 09:46-0400 Respiratory rate 20 /min Terry Mclaughlin MD Work Phone: [facility] 08-22-2024 09:46-0400 SaO2% (BldA) [Mass fraction] 95 % Terry Mclaughlin MD Work Phone: [facility] 08-22-2024 09:46-0400 Systolic blood pressure 134 mm[Hg] Terry Mclaughlin MD Work Phone: [facility] 06-30-2024 14:26-0400 Diastolic blood pressure 82 mm[Hg] Terry Mclaughlin MD Work Phone: [facility] 06-30-2024 14:26-0400 Heart rate 94 /min Terry Mclaughlin MD Work Phone: [facility] 06-30-2024 14:26-0400 SaO2% (BldA) [Mass fraction] 95 % Terry Mclaughlin MD Work Phone: [facility] 06-30-2024 14:26-0400 Systolic blood pressure 130 mm[Hg] Terry Mclaughlin MD Work Phone: [facility] 06-20-2024 13:51-0400 Body height 170.18 cm Terry Mclaughlin MD Work Phone: [facility] 06-20-2024 13:51-0400 Body mass index (BMI) [Ratio] 34.7 kg/m2 Terry Mclaughlin MD Work Phone: [facility] 06-20-2024 13:51-0400 Body weight 100.69 kg Terry Mclaughlin MD Work Phone: [facility] 06-20-2024 13:51-0400 Diastolic blood pressure 80 mm[Hg] Terry Mclaughlin MD Work Phone: [facility] 06-20-2024 13:51-0400 Heart rate 93 /min Terry Mclaughlin MD Work Phone: [facility] 06-20-2024 13:51-0400 SaO2% (BldA) [Mass fraction] 96 % Terry Mclaughlin MD Work Phone: [facility] 06-20-2024 13:51-0400 Systolic blood pressure 130 mm[Hg] Terry Mclaughlin MD Work Phone: [facility] 06-01-2024 10:14-0400 Diastolic blood pressure 71 mm[Hg] Terry Mclaughlin MD Work Phone: [facility] 06-01-2024 10:14-0400 Heart rate 79 /min Terry Mclaughlin MD Work Phone: [facility] 06-01-2024 10:14-0400 Respiratory rate 16 /min Terry Mclaughlin MD Work Phone: [facility] 06-01-2024 10:14-0400 SaO2% (BldA) [Mass fraction] 96 % Terry Mclaughlin MD Work Phone: [facility] 06-01-2024 10:14-0400 Systolic blood pressure 111 mm[Hg] Terry Mclaughlin MD Work Phone: [facility] 06-01-2024 09:36-0400 Inhaled oxygen flow rate 4 L/min Terry Mclaughlin MD Work Phone: [facility] 06-01-2024 08:09-0400 Body height 170.18 cm Terry Mclaughlin MD Work Phone: [facility] 06-01-2024 08:09-0400 Body weight 100.69 kg Terry Mclaughlin MD Work Phone: [facility] 05-23-2024 12:26-0400 Diastolic blood pressure 80 mm[Hg] Terry Mclaughlin MD Work Phone: [facility] 05-23-2024 12:26-0400 Heart rate 97 /min Terry Mclaughlin MD Work Phone: [facility] 05-23-2024 12:26-0400 SaO2% (BldA) [Mass fraction] 95 % Terry Mclaughlin MD Work Phone: [facility] 05-23-2024 12:26-0400 Systolic blood pressure 122 mm[Hg] Terry Mclaughlin MD Work Phone: [facility] 05-11-2024 12:30-0400 Diastolic blood pressure 62 mm[Hg] Terry Mclaughlin MD Work Phone: [facility] 05-11-2024 12:30-0400 Heart rate 76 /min eTrry Mclaughlin MD Work Phone: [facility] 05-11-2024 12:30-0400 Respiratory rate 16 /min Terry Mclaughlin MD Work Phone: [facility] 05-11-2024 12:30-0400 SaO2% (BldA) [Mass fraction] 97 % Terry Mclaughlin MD Work Phone: [facility] 05-11-2024 12:30-0400 Systolic blood pressure 131 mm[Hg] Terry Mclaughlin MD Work Phone: [facility] 05-11-2024 11:52-0400 Inhaled oxygen flow rate 3 L/min Terry Mclaughlin MD Work Phone: [facility] 05-11-2024 10:33-0400 Body height 170.18 cm Terry Mclaughlin MD Work Phone: [facility] 05-11-2024 10:33-0400 Body weight 100.69 kg Terry Mclaughlin MD Work Phone: [facility] 04-13-2024 13:14-0500 Body weight 100.75 kg [facility] 04-13-2024 13:14-0500 Diastolic blood pressure 70 mm[Hg] [facility] 04-13-2024 13:14-0500 Heart rate 92 /min [facility] 04-13-2024 13:14-0500 SaO2% (BldA) [Mass fraction] 95 % [facility] 04-13-2024 13:14-0500 Systolic blood pressure 130 mm[Hg] [facility] 02-24-2024 13:06-0500 Body mass index (BMI) [Ratio] 36.28 kg/m2 Terry Mclaughlin MD Work Phone: [facility] 02-24-2024 13:06-0500 Body temperature 97 [degF] Terry Mclaughlin MD Work Phone: [facility] 02-24-2024 13:06-0500 Body weight 98.88 kg Terry Mclaughlin MD Work Phone: [facility] 02-24-2024 13:06-0500 Diastolic blood pressure 70 mm[Hg] Terry Mclaughlin MD Work Phone: [facility] 02-24-2024 13:06-0500 Heart rate 94 /min Terry Mclaughlin MD Work Phone: [facility] 02-24-2024 13:06-0500 SaO2% (BldA) [Mass fraction] 97 % Terry Mclaughlin MD Work Phone: [facility] 02-24-2024 13:06-0500 Systolic blood pressure 128 mm[Hg] Terry Mclaughlin MD Work Phone: [facility] 11-19-2023 10:32-0400 Body height 165.1 cm Terry Mclaughlin MD Work Phone: [facility] 11-19-2023 10:32-0400 Body mass index (BMI) [Ratio] 36.61 kg/m2 Terry Mclaughlin MD Work Phone: [facility] 11-19-2023 10:32-0400 Body temperature 97.3 [degF] Terry Mclaughlin MD Work Phone: [facility] 11-19-2023 10:32-0400 Body weight 99.79 kg Terry Mclaughlin MD Work Phone: [facility] 11-19-2023 10:32-0400 Diastolic blood pressure 80 mm[Hg] Terry Mclaughlin MD Work Phone: [facility] 11-19-2023 10:32-0400 Heart rate 99 /min Terry Mclaughlin MD Work Phone: [facility] 11-19-2023 10:32-0400 Respiratory rate 20 /min Terry Mclaughlin MD Work Phone: [facility] 11-19-2023 10:32-0400 SaO2% (BldA) [Mass fraction] 95 % Terry Mclaughlin MD Work Phone: [facility] 11-19-2023 10:32-0030 Systolic blood pressure 152 mm[Hg] Terry Mclaughlin MD Work Phone: [facility] Encounters Encounter Date Encounter Type Care Provider Facility Start: 09-23-2024 End: 09-23-2024 ambulatory [facility] Start: 09-23-2024 Encounter for other specified special examinations [facility] Start: 09-23-2024 End: 09-23-2024 Telephone encounter Jr. Sonja Saleh DO Work Phone: [facility] Comment on above: unable to complete m ri Start: 09-22-2024 End: 09-22-2024 Bamboo flowsheet Terry Mclaughlin MD Work Phone: [facility] Start: 09-22-2024 End: 09-22-2024 Isabell [employer] Mobileheet Terry Mclaughlin MD Work Phone: [facility] Start: 09-22-2024 End: 09-23-2024 ambulatory TERRY MCLAUGHLIN Not Available Start: 09-22-2024 End: 09-22-2024 Office outpatient visit 25 minutes Terry Mclaughlin MD Work Phone: [facility] Comment on above: Lumbar spondylosis ( Primary Dx); Primary osteoarthritis of right knee; Postoperative pain of right knee; Class 2 severe obesity due to excess calories with serious comorbidity and body mass index (BMI) of 37.0 to 37.9 in adult ([facility]) Start: 09-19-2024 ambulatory SONJA SALEH JR [facility] Start: 09-19-2024 ambulatory SONJA SALEH JR [facility] Start: 09-07-2024 End: 09-07-2024 ambulatory [facility] Start: 09-06-2024 End: 09-06-2024 ambulatory SONJA VASQUEZ Not Available Start: 09-06-2024 End: 09-06-2024 Office outpatient visit 25 minutes Jr. Sonja Saleh DO Work Phone: [facility] Comment on above: Right ankle pain, un specified chronicity; Tendonitis of ankle, right; History of right knee joint replacement; Acute pain of right knee Start: 09-05-2024 End: 09-05-2024 Patient encounter status Major Gallardo DO Work Phone: [facility] Start: 09-05-2024 End: 09-05-2024 Periodic preventive med est patient 40-64yrs Major Gallardo DO Work Phone: [facility] Comment on above: Encounter for gyneco logical examination without abnormal finding (Primary Dx); Encounter for Papanicolaou smear of cervix; Breast cancer screening by mammogram; Osteopenia, unspecified location; Screening for osteoporosis; Asymptomatic menopausal state Start: 09-05-2024 End: 09-05-2024 ambulatory MAJOR GALLARDO Not Available Start: 08-22-2024 End: 08-22-2024 Bamboo flowsheet Terry Mclaughlin MD Work Phone: [facility] Start: 08-22-2024 End: 08-22-2024 Bamboo flowsheet Terry Mclaughlin MD Work Phone: [facility] Start: 08-22-2024 End: 08-22-2024 Clinisync Result Encounter Terry Mclaughlin MD Work Phone: [facility] External Department Unsolicited Start: 08-22-2024 End: 08-22-2024 Office outpatient visit 25 minutes Terry Mclaughlin MD Work Phone: [facility] Comment on above: Lumbar spondylosis ( Primary Dx); Primary osteoarthritis of right knee; Acute right ankle pain; Primary insomnia; Seasonal allergic rhinitis due to pollen; Class 2 severe obesity due to excess calories with serious comorbidity and body mass index (BMI) of 37.0 to 37.9 in adult ([facility]) Start: 08-22-2024 End: 08-22-2024 ambulatory TERRY MCLAUGHLIN Not Available Start: 08-17-2024 End: 08-17-2024 ambulatory HENRIETTA HAMILTON [facility] Start: 08-10-2024 End: 08-10-2024 ambulatory [facility] Start: 07-20-2024 End: 07-20-2024 ambulatory [facility] Start: 07-01-2024 End: 07-01-2024 ambulatory [facility] Start: 06-30-2024 End: 06-30-2024 ambulatory Terry Mclaughlin MD Work Phone: [facility] Work Phone: Start: 06-30-2024 End: 06-30-2024 Patient encounter procedure Terry Mclaughlin MD Work Phone: [facility][Note 3] Pain Mgmt Work Phone: Start: 06-29-2024 End: [...] Not Available Start: 06-23-2024 End: 06-23-2024 ambulatory [facility] Start: 06-22-2024 End: 06-22-2024 ambulatory HENRIETTA Guevara [facility] Start: 06-20-2024 End: 06-20-2024 ambulatory Terry Mclaughlin MD Work Phone: [facility] Work Phone: Start: 06-20-2024 End: 06-20-2024 Patient encounter procedure Terry Mclaughlin MD Work Phone: [facility] Work Phone: Start: 06-01-2024 Non-patient / Non-visit Terry cross MD Work Phone: [facility] Work Phone: Start: 06-01-2024 End: 06-01-2024 Admission to same day surgery center Terry Mclaughlin MD Work Phone: [facility] Work Phone: Start: 06-01-2024 End: 06-01-2024 ambulatory Terry Mclaughlin MD Work Phone: [facility] Work Phone: Start: 05-31-2024 End: 05-31-2024 Refill Terry Mclaughlin MD Work Phone: [facility] Comment on above: Lumbar spondylosis Start: 05-30-2024 Non-patient / Non-visit Terry cross MD Work Phone: [facility] Work Phone: Start: 05-30-2024 End: 05-30-2024 ambulatory [facility] Start: 05-23-2024 End: 05-23-2024 Patient encounter procedure Terry Mclaughlin MD Work Phone: [facility] Work Phone: Start: 05-23-2024 End: 05-23-2024 Refill Terry Mclaughlin MD Work Phone: [facility] Comment on above: Insomnia, unspecifie d Start: 05-17-2024 End: 05-17-2024 Refill Terry Mclaughlin MD Work Phone: [facility] Comment on above: Insomnia, unspecifie d Start: 05-17-2024 End: 05-17-2024 ambulatory [facility] Start: 05-11-2024 End: 05-11-2024 Admission to same day surgery center Terry Mclaughlin MD Work Phone: [facility] Work Phone: Start: 05-11-2024 End: 05-11-2024 ambulatory Terry Mclaughlin MD Work Phone: [facility] Work Phone: Start: 04-27-2024 End: 04-27-2024 Refill Terry Mclaughlin MD Work Phone: [facility] Comment on above: S/P TKR (total knee replacement), right Start: 04-22-2024 End: 04-22-2024 ambulatory [facility] Start: 04-19-2024 End: 04-19-2024 ambulatory [facility] Start: 04-13-2024 End: 04-13-2024 ambulatory [facility] Work Phone: Start: 04-13-2024 End: 04-13-2024 Patient encounter procedure [facility] Work Phone: Start: 04-06-2024 End: [...] RT TKA Start: 03-28-2024 End: 03-28-2024 ambulatory [facility] Start: 03-07-2024 End: 03-07-2024 ambulatory [facility] Start: 03-01-2024 End: 03-02-2024 Telephone encounter Sonja [...] Start: 02-24-2024 End: 02-24-2024 ambulatory HENRIETTA HAMILTON [facility] Start: 02-19-2024 End: 02-19-2024 ambulatory LARON Willa WATTS [facility] Start: 02-18-2024 End: 02-18-2024 ambulatory [facility] Start: 02-08-2024 End: 02-08-2024 Refill Terry Mclaughlin [...] minutes JrBraydon Ivory Stepanic DO Work Phone: [facility] Comment on above: Acute pain of right knee (Primary Dx) Start: 02-02-2024 End: 02-02-2024 ambulatory JR.SONJA Not Available Start: 01-25-2024 End: 01-25-2024 ambulatory [facility] Start: 01-18-2024 End: 01-18-2024 Refill Terry Mclaughlin [...] Start: 12-29-2023 End: 12-29-2023 ambulatory HENRIETTA HAMILTON [facility] Start: 12-24-2023 End: 12-24-2023 ambulatory JUAN MIGUEL ANDREW [facility] Start: 12-22-2023 End: 01-05-2024 Telephone encounter Jr. Sonja Ivory Delfino DO Work Phone: [facility] Start: 12-21-2023 End: 12-21-2023 Bamboo flowsheet Jr. Sonja Ivory Delfino DO Work Phone: [facility] Start: 12-21-2023 End: 12-21-2023 Bamboo flowsheet Jr. Sonja Woodwardestefani DO Work Phone: [facility] Start: 12-21-2023 End: 12-21-2023 Office outpatient visit 25 minutes Jr. Sonja Woodwardestefani DO Work Phone: [facility] Comment on above: Acute pain [...] 12-14-2023 End: 12-14-2023 Bamboo flowsheet Una Maynard [facility] Start: 12-14-2023 End: 12-14-2023 Bamboo flowsheet Una Maynard [facility] Start: 12-14-2023 End: 12-15-2023 ambulatory Una Maynard [facility] Comment on above: Primary osteoarthrit is of right knee (Primary Dx); Postoperative pain of right knee; Status post right knee replacement; Presence of artificial knee joint, right Primary osteoarthrit is of left knee Start: 12-08-2023 End: 12-08-2023 ambulatory [facility] Start: 12-07-2023 End: 12-07-2023 Bamboo flowsheet Una Maynard [facility] Start: 12-07-2023 End: 12-07-2023 Bamboo flowsheet Una Maynard [facility] Start: 12-07-2023 End: 12-07-2023 ambulatory Una Maynard [facility] Comment on above: Postoperative [...] Start: 11-30-2023 End: 11-30-2023 ambulatory Una Maynard [facility] Comment on above: Primary osteoarthrit is of right knee (Primary Dx); Postoperative pain of right knee; Status post right knee replacement; Presence of artificial knee joint, right Start: 11-30-2023 End: 12-01-2023 Telephone encounter Jr. Sonja Saleh DO Work Phone: [facility] Start: 11-25-2023 End: 11-25-2023 Bamboo flowsheet Una Maynard [facility] Start: 11-25-2023 End: 11-25-2023 Bamboo flowsheet Una Maynard [facility] Start: 11-25-2023 End: 11-25-2023 ambulatory Una Maynard [facility] Comment on above: Primary osteoarthrit is of right knee (Primary Dx); Postoperative pain of right knee; Status post right knee replacement; Presence of artificial knee joint, right Start: 11-24-2023 End: 11-24-2023 ambulatory [facility] Start: 11-23-2023 End: 11-23-2023 Bamboo flowsheet Sonja Cachorro Saleh DO Work Phone: [facility] Start: 11-23-2023 End: 11-23-2023 Bamboo flowsjared Vasquez Sonja Cachorro Saleh DO Work Phone: [facility] Start: 11-23-2023 End: 11-23-2023 Clinisync Result Encounter Terry Mclaughlin MD Work Phone: [facility] External Department Unsolicited Start: 11-23-2023 End: 11-23-2023 Postop follow up visit related to original px Sonja Cachorro Saleh DO Work Phone: [facility] Comment on above: S/P TKR (total knee replacement), right (Primary Dx); Primary osteoarthritis of right knee Start: 11-23-2023 End: 11-23-2023 ambulatory SONJA VASQUEZ Not Available Start: 11-19-2023 End: 11-19-2023 Bamboo flowsheet Terry Mclaughlin MD Work Phone: [facility] Start: 11-19-2023 End: 11-19-2023 Bamboo flowsheet Terry Mclaughlin MD Work Phone: [facility] Start: 11-19-2023 End: 11-19-2023 Office [...] 11-12-2023 End: 11-19-2023 Telephone encounter Una Maynard [facility] Comment on above: re: [...] 11-13-2023 Telephone encounter Keny THACKER Work Phone: [facility] Start: 11-09-2023 End: 11-09-2023 Isabell Saleh DO Work Phone: [facility] Start: 11-09-2023 End: 11-09-2023 Isabell Saleh DO Work Phone: [facility] Start: 11-09-2023 End: 11-09-2023 Clinisync Result Encounter Generic External Data Provider [facility] External Department Unsolicited Start: 11-09-2023 End: 11-09-2023 Postop follow up visit related to original lynsey Saleh DO Work Phone: [facility] Comment on above: S/P TKR (total knee replacement), right (Primary Dx); Acute pain of right knee Start: 11-09-2023 End: 11-09-2023 ambulatory SONJA VASQUEZ Not Available Start: 11-06-2023 End: 11-06-2023 Bamboo flowsheet Una Maynard [facility] Start: 11-06-2023 End: 11-06-2023 Bamboo flowsheet Una Maynard [facility] Start: 11-06-2023 End: 11-06-2023 ambulatory Una Maynard [facility] Comment on above: Primary osteoarthrit is of right knee (Primary Dx); Postoperative pain of right knee; Status post right knee replacement; Presence of artificial knee joint, right Start: 11-04-2023 End: 11-04-2023 Telephone encounter Una Maynard [facility] Comment on above: NC/NS for PT (Tried to contact re: NC/NS for last scheduled PT; had to lm. I requested a call back due to she has an ext on the referral dated to begin 11/05.); Call Back (She called noting that the appt was marked wrong on calendar; we rs for 11/05.) Start: 11-04-2023 End: 11-04-2023 ambulatory [facility] Start: 11-03-2023 End: 11-03-2023 Juwan Mclaughlin MD Work Phone: [facility] Comment on above: Insomnia, unspecifie d Start: 10-30-2023 End: 11-03-2023 Telephone encounter eKny THACKER Work Phone: [facility] Start: 10-29-2023 End: 10-29-2023 ambulatory Una Maynard [facility] Comment on above: Primary osteoarthrit is of right knee (Primary Dx); Postoperative pain of right knee; Status post right knee replacement; Presence of artificial knee joint, right Start: 10-28-2023 End: 10-28-2023 Bamboo flowsjared THACKER Work Phone: [facility] Start: 10-28-2023 End: 10-28-2023 Bamboo flowsheet Keny THACKER Work Phone: [facility] Start: 10-28-2023 End: 10-28-2023 Postop follow [...] 10-21-2023 End: 10-21-2023 Bamboo flowsheet Zabrina Kelbley [facility] Start: 10-21-2023 End: 10-21-2023 Bamboo flowsheet Zabrina Kelbley [facility] Start: 10-21-2023 End: 10-21-2023 ambulatory Zabrina Kelbley [facility] Comment on above: Primary osteoarthrit is of right knee (Primary Dx); Postoperative pain of right knee; Status post right knee replacement; Presence of artificial knee joint, right Start: 10-14-2023 End: 10-14-2023 Bamboo flowsheet Zabrina Kelbley [facility]INIST [facility] Start: 10-14-2023 End: 10-14-2023 Bamboo flowsheet Zabrina Kelbley [facility]INIST [facility] Start: 10-14-2023 End: 10-14-2023 Postop follow up visit related to original px Keny THACKER Work Phone: [facility] Comment on above: S/P TKR (total knee replacement), right (Primary Dx); Acute pain of right knee Start: 10-14-2023 End: 10-14-2023 ambulatory KENY BERNAL Not Available Start: 10-14-2023 End: 10-14-2023 ambulatory Zabrina Kelbley [facility] Comment on above: Primary osteoarthrit is of right knee (Primary Dx); Postoperative pain of right knee; Status post right knee replacement; Presence of artificial knee joint, right Start: 10-12-2023 End: 10-12-2023 Telephone encounter Keny THACKER Work Phone: [facility] Comment on above: Med Refill Start: 10-10-2023 End: 10-11-2023 Preprocedural examination done Keny THACKER Work Phone: [facility] Start: 10-10-2023 End: 10-11-2023 Refill Keny THACKER Work Phone: [facility] Comment on above: Preop examination; Primary osteoarthritis of right knee Start: 10-09-2023 End: 10-09-2023 Bamboo flowsheet Una Brink [facility] Start: 10-09-2023 End: 10-09-2023 Bamboo flowsheet Una Brink [facility] Start: 10-09-2023 End: 10-09-2023 ambulatory Una Brink [facility] Comment on above: Primary osteoarthrit is of right knee (Primary Dx); Postoperative pain of right knee; Status post right knee replacement; Presence of artificial knee joint, right Start: 09-30-2023 End: 10-06-2023 Telephone encounter Keny THACKER Work Phone: [facility] Comment on above: refill Start: 09-30-2023 End: 09-30-2023 ambulatory UNA MAYNARD Not Available Start: 09-29-2023 End: 09-29-2023 ambulatory [facility] Start: 08-17-2023 End: 11-19-2023 Preoperative state Terry Mclaughlin MD Work Phone: [facility] Start: 03-18-2023 Refill Terry Alvarenga Work Phone: [facility] Comment on above: Gastroesophageal ref [...] Screening for malign ant neoplasm of cervix [facility] Start: 08-30-2027 Screening for malign ant neoplasm of cervix [facility] Start: 09-01-2026 Screening for malign ant neoplasm of colon [facility] Start: 08-31-2026 Screening for malign ant neoplasm of cervix Pap Smear [facility] Start: 09-08-2025 End: 09-08-2025 Patient encounter procedure [facility] Start: 02-24-2025 End: 02-24-2025 Patient encounter procedure 02/24/2025 11:30 AM EST Office Visit [facility] [address] [place] [address] Terry Mclaughlin MD [address] [place] [address] [facility] Start: 11-22-2024 End: 11-22-2024 Patient encounter procedure 11/22/2024 1:30 PM EDT Office Visit [facility] [address] [place] [address] Terry Mclaughlin MD [address] [place] [address] [facility] Start: 10-17-2024 Influenza vaccination [facility] Start: 10-04-2024 End: 10-04-2024 Patient encounter procedure 10/04/2024 9:30 AM EDT Office Visit [facility] [address] [place] [phone] Jr. Sonja Salhe, [address] [facility] [place] [address] [facility] Start: 09-22-2024 End: 09-22-2024 Patient encounter procedure 09/22/2024 11:15 AM EDT Office Visit [facility] [address] [place] [address] Terry Mclaughlin MD [address] [place] [address] [facility] Start: 09-07-2024 End: 11-06-2025 DBT Breast - bilateral screening Bilateral screening mammogram with tomosynthesis Imaging Routine Breast cancer screening by mammogram Expected: 09/07/2024, Expires: 11/06/2025 [facility] Comment on above: Expected: 09/07/2024 , Expires: 11/06/2025 Start: 09-06-2024 End: 09-06-2025 MR Ankle - right WO contrast MR ankle right wo IV contrast Imaging Routine Tendonitis of ankle, right Expected: 09/06/2024 (Approximate), Expires: 09/06/2025 [facility] Work Phone: Comment on above: Expected: 09/06/2024 (Approximate), Expires: 09/06/2025 Start: 09-06-2024 End: 09-06-2025 NM Whole body Bone 3 Phase Views NM bone 3 phase Imaging Routine History of right knee joint replacement Acute pain of right knee Expected: 09/06/2024 (Approximate), Expires: 09/06/2025 [facility] Comment on above: Expected: 09/06/2024 (Approximate), Expires: 09/06/2025 Start: 09-06-2024 Screening for malign ant neoplasm of breast Mammogram [facility] Start: 09-06-2024 End: 09-06-2024 Patient encounter procedure 09/06/2024 10:15 AM EDT Office Visit [facility] [address] [place] [address] Jr. Sonja Saleh, DO [address] [place] [address] [facility] Start: 09-05-2024 End: 09-05-2025 DXA Skeletal system Views for bone density DEXA bone density Imaging Routine Osteopenia, unspecified location Screening for osteoporosis Asymptomatic menopausal state Expected: 09/05/2024, Expires: 09/05/2025 [facility] Comment on above: Expected: 09/05/2024 , Expires: 09/05/2025 Start: 09-05-2024 End: 09-05-2024 Patient encounter procedure 09/05/2024 1:30 PM EDT Office Visit [facility] [address] [place] [address] Major Gallardo DO [address] [place] [address] [facility] Start: 08-25-2024 End: 08-25-2024 Patient encounter procedure 08/25/2024 10:15 AM EDT Office Visit [facility] [address] [place] [address] Terry Mclaughlin MD [address] [place] [address] [facility] Start: 08-23-2024 End: 08-23-2024 Patient encounter procedure 08/23/2024 1:15 PM EDT Office Visit [facility] [address] [place] [address] Terry Mclaughlin MD [address] [place] [address] [facility] Start: 08-22-2024 End: 08-22-2025 Urate [Mass/volume] in Serum or Plasma Uric acid Lab Routine Acute right ankle pain Expected: 08/22/2024 (Approximate), Expires: 08/22/2025 [facility] Work Phone: Comment on above: [...] [facility] [address] [place] [address] Terry Mclaughlin MD [address] [place] [address] Arrived [facility] Comment on above: Arrived Start: 06-29-2024 End: 06-29-2024 Patient encounter procedure [facility] Comment on above: Arrived Start: 06-01-2024 [facility] Start: 05-11-2024 [facility] Start: 04-06-2024 End: 04-06-2024 Patient encounter procedure 04/06/2024 9:00 AM EST Office Visit [facility] [address] [place] [address] Jr. Sonja Saleh, DO [address] [place] [address] [facility] Start: 03-29-2024 End: 03-29-2024 Patient encounter procedure 03/29/2024 11:15 AM EST Office Visit [facility] [address] [place] [address] Jr. Sonja Saleh, DO [address] [place] [address] [facility] Start: 02-24-2024 End: 02-24-2024 Patient encounter procedure 02/24/2024 1:00 PM EST Office Visit [facility] [address] [place] [phone] Terry Mclaughlin MD [address] [place] [address] [facility] Start: 02-23-2024 End: 02-23-2024 Patient encounter procedure 02/23/2024 10:30 AM EST Office Visit [facility] [address] [place] [phone] Jr. Sonja Saleh, DO [address] [facility] [address] [place] [address] [facility] Start: 02-02-2024 End: 02-02-2024 Patient encounter procedure [facility] Comment on above: Arrived Start: 01-06-2024 End: 01-06-2024 Patient encounter procedure [facility] Comment on above: Arrived Start: 12-23-2023 End: 12-23-2023 ambulatory 12/23/2023 11:00 AM EST Treatment [facility] [address] [facility] [address] [place] [address] Tabatha Onofre, PT [address] [facility] [address] [place] [address] [facility] Start: 12-21-2023 End: 12-21-2023 Patient encounter procedure [facility] Comment on above: Arrived Start: 12-16-2023 End: 12-16-2023 ambulatory 12/16/2023 1:00 PM EDT Treatment [facility] [address] [facility] [address] [place] [address] Tabatha Onofre, PT [address] [facility] [address] [place] [address] [facility] Start: 12-14-2023 End: 12-14-2023 ambulatory [facility] Comment on above: Arrived Start: 12-10-2023 End: 12-10-2023 ambulatory 12/10/2023 1:00 PM EDT Treatment [facility] [address] [place] [address] Una Maynard PTA [facility] Start: 12-07-2023 End: 12-07-2023 ambulatory 12/07/2023 1:00 PM EDT Treatment [facility] [address] [place] [address] Una Maynard PTA [facility] Start: 12-04-2023 End: 12-04-2023 Patient encounter procedure 12/04/2023 10:15 AM EDT Office Visit [facility] [address] [place] [phone] Kney Bernal, KIRSTIE [address] [place] [address] [facility] Start: 12-03-2023 End: 12-03-2023 ambulatory [facility] Comment on above: Arrived Start: 11-30-2023 End: 11-30-2023 ambulatory 11/30/2023 2:00 PM EDT Treatment [facility] [address] [facility] [address] [place] [address] Una Maynard PTA [facility] Start: 11-25-2023 End: 11-25-2023 ambulatory [facility] Comment on above: Arrived Start: 11-23-2023 End: 11-23-2023 Patient encounter procedure [facility] Comment on above: Arrived Start: 11-19-2023 End: 11-18-2024 Basic metabolic 1998 panel - Serum or Plasma Basic metabolic panel Lab Routine Encounter for long-term (current) use of medications Expected: 11/19/2023 (Approximate), Expires: 11/18/2024 [facility] Work Phone: Comment on above: Expected: 11/19/2023 (Approximate), Expires: 11/18/2024 Start: 11-19-2023 End: 11-18-2024 CBC W Auto Differential panel - Blood CBC and differential Lab Routine Encounter for long-term (current) use of medications Expected: 11/19/2023 (Approximate), Expires: 11/18/2024 [facility] Comment on above: Expected: 11/19/2023 (Approximate), Expires: 11/18/2024 Start: 11-19-2023 End: 11-18-2024 Hepatic function 2000 panel - Serum or Plasma Hepatic function panel Lab Routine Encounter for long-term (current) use of medications Expected: 11/19/2023 (Approximate), Expires: 11/18/2024 [facility] Comment on above: Expected: 11/19/2023 (Approximate), Expires: 11/18/2024 Start: 11-19-2023 End: 11-18-2024 TSH W/REFLEX TO FT4 TSH W/REFLEX TO FT4 Lab Routine Lightheaded Fatigue, unspecified type Expected: 11/19/2023 (Approximate), Expires: 11/18/2024 [facility] Comment on above: Expected: 11/19/2023 (Approximate), Expires: 11/18/2024 Start: 11-19-2023 End: 11-19-2023 Patient encounter procedure 11/19/2023 10:30 AM EDT Office Visit [facility] [address] [place] [address] Terry Mclaughlin MD [address] [place] [address] Arrived [facility] Comment on above: Arrived Start: 11-18-2023 End: 11-18-2023 Patient encounter procedure 11/18/2023 11:15 AM EDT Office Visit [facility] [address] [place] [phone] Keny Bernal PA [address] [place] [address] [facility] Start: 11-10-2023 End: 11-10-2023 ambulatory 11/10/2023 11:00 AM EDT Treatment [facility] [address] [place] [phone] Una Maynard PTA [facility] Start: [...] right knee Expected: 11/09/2023 (Approximate), Expires: 11/08/2024 [facility] Comment on above: Expected: 11/09/2023 (Approximate), Expires: 11/08/2024 Start: 11-09-2023 End: 11-09-2023 Patient encounter procedure [facility] Comment on above: Arrived Start: 11-06-2023 End: 11-06-2023 ambulatory 11/06/2023 10:00 AM EDT Treatment [facility] [address] [place] [address] Una Maynard PTA [facility] Start: 11-04-2023 End: 11-04-2023 ambulatory 11/04/2023 1:30 PM EDT Treatment [facility] [address] [place] [address] Una Maynard PTA [facility] Start: 10-29-2023 End: 10-29-2023 ambulatory 10/29/2023 1:00 PM EDT Treatment [facility] [address] [place] [address] Una Maynard PTA [facility] Start: [...] Office Visit [facility] [address] [place] [address] Keny Bernal PA [address] [place] [address] [facility] Start: 10-14-2023 End: 10-14-2023 ambulatory [facility] Start: 10-09-2023 End: 10-09-2023 ambulatory [facility] Comment on above: Primary osteoarthrit is of right knee (Primary Dx); Postoperative pain of right knee; Status post right knee replacement; Presence of artificial knee joint, right Start: 10-07-2023 End: 10-07-2023 ambulatory 10/07/2023 11:30 AM EDT Treatment [facility] [address] [facility] [address] [place] [address] Una Maynard PTA [facility] Start: 09-01-2023 End: 09-01-2023 Patient encounter procedure 09/01/2023 11:30 AM EDT Office Visit [facility] [address] [place] [address] Major Gallardo DO [address] [place] [address] [facility] Start: 08-17-2023 End: 08-17-2023 Patient encounter procedure 08/17/2023 10:45 AM EDT Office Visit [facility] [address] [place] [address] Terry Mclaughlin MD [address] [place] [address] [facility] Start: 07-15-2023 End: 07-15-2023 Patient encounter procedure 07/15/2023 11:00 AM EDT Office Visit [facility] [address] [facility] [address] Jr. Sonja Saleh, DO [address] [place] [address] [facility] Start: 06-17-2023 Screening for malign ant neoplasm of breast Mammogram [facility] Start: 10-17-2022 Influenza vaccination Influenza Vacc ine (#1) [facility] Start: 10-09-1983 Screening for malign ant neoplasm of cervix Pap Smear [facility] Start: 1962 Screening for malign ant neoplasm of colon [facility] IGP, APT HPV,RFX 16/18,45 IGP, APT HPV,RFX 16/18,45 Lab Routine Encounter for Papanicolaou smear of cervix Ordered: 09/05/2024 [facility] Work Phone: Comment on above: Ordered: 09/05/2024 Patient Education [facility] Work Phone: Patient referral [facility] Work Phone: XR Knee - right 1 or 2 Views XR knee 1 or 2 views right Imaging Routine Acute pain of right knee 10/14/2023 1:11 PM EDT [facility] Work Phone: Immunizations Immunization Date Immunization Notes Care Provider Fa cili 12-03-2021 COVID-19 mRNA Bivale nt Booster (Pfizer) Terry Mclaughlin MD Work Phone: [facility] 12-03-2021 Moderna Bivalent Booster Vaccination Terry Mclaughlin MD Work Phone: [facility] 09-07-2021 COVID-19 Comirnaty (Pfizer) Tri-Sucrose 12+ Terry Mclaughlin MD Work Phone: [facility] 12-15-2020 COVID-19 mRNA, Comirnaty (Pfizer) Terry Mclaughlin MD Work Phone: [facility] 06-03-2020 COVID-19 mRNA, Comirnaty (Pfizer) Terry Mclaughlin MD Work Phone: [facility] 05-14-2020 COVID-19 mRNA, Comirnaty (Pfizer) Terry Mclaughlin MD Work Phone: [facility] 12-27-2018 influenza, injectabl e, quadrivalent, preservative free Terry Mclaughlin MD Work Phone: [facility] 12-27-2018 influenza virus vaccine, unspecified formulation Terry Mclaughlin MD Work Phone: [facility] Payers Date Payer Category Payer Self-pay [id number] 2024 Self-pay 2021 [facility] [employer] [id number] 2021 Unknown BCBS BCBS xxxxxx [id number] 2021-Present [phone] [address] [place] [address] 1.2.840.509473.1.13.693.2 .7.3.358855.315 1962 Unknown [id number] 2.16.840.1.881618.3.579.2 .593 1962 Unknown [id number] 2.16.840.1.419497.3.579.2 .593 1962 Unknown [id number] 2.16.840.1.010380.3.579.2 .593 1962 Unknown [id number] 2.16.840.1.601927.3.579.2 .593 1962 Unknown [id number] 2.16.840.1.115259.3.579.2 .593 1962 Unknown [id number] 2.16.840.1.304310.3.579.2 .1286 1962 Unknown [id number] 2.16.840.1.089926.3.579.2 .1286 1962 Unknown [id number] 2.16.840.1.200649.3.579.2 .1286 1962 Unknown [id number] 2.16.840.1.443388.3.579.2 .1259 1962 Unknown [id number] 2.16.840.1.402235.3.579.2 .1259 1962 Unknown [id number] 2.16.840.1.557875.3.579.2 .1259 1962 Unknown [id number] 2.16.840.1.393159.3.579.2 .1259 1962 Unknown [id number] 2.16.840.1.601685.3.579.2 .1259 1962 Unknown [id number] 2.16.840.1.552021.3.579.2 .1259 1962 Unknown [id number] 2.16.840.1.743305.3.579.2 .1259 1962 Unknown [id number] 2.16.840.1.580764.3.579.2 .1258 1962 Unknown [id number] 2.16.840.1.796194.3.579.2 .1258 1962 Unknown [id number] 2.16.840.1.808449.3.579.2 .1258 1962 Unknown [id number] 2.16.840.1.028547.3.579.2 .1258 1962 Unknown [id number] 2.16.840.1.130808.3.579.2 .1258 1962 Unknown [id number] 2.16840.1.663296.3.579.2 .1258 1962 Unknown [id number] 2.16840.1.443000.3.579.2 .1258 1962 Unknown [id number] 2.840.1.971526.3.579.2 .1258 1962 Unknown [id number] 2.16840.1.262375.3.579.2 .1258 1962 Unknown [id number] 2.16840.1.816007.3.579.2 .1258 1962 Unknown [id number] 2.16840.1.988440.3.579.2 .1258 1962 Unknown [id number] 2.16840.1.964137.3.579.2 .1258 1962 Unknown [id number] 2.16.840.1.294833.3.579.2 .1258 1962 Unknown [id number] 2.16840.1.931225.3.579.2 .1258 1962 Unknown [id number] 2.16.840.1.309821.3.579.2 .1258 1962 Unknown [id number] 2.16840.1.460454.3.579.2 .1258 1962 Unknown [id number] 2.16.840.1.847291.3.579.2 .1259 1962 Unknown [id number] 2.16.840.1.732657.3.579.2 .9 1962 Unknown [id number] 2.16.840.1.540881.3.579.2 .9 1962 Unknown [id number] 2.16.840.1.798148.3.579.2 .1258 1962 Unknown [id number] 2.16.840.1.669945.3.579.2 .9 1962 Unknown [id number] 2.16.840.1.609811.3.579.2 .1258 1962 Unknown [id number] 2.16.840.1.767388.3.579.2 .1285 1962 Unknown [id number] 2.16.840.1.786579.3.579.2 .1285 1962 Unknown [id number] 2.16.840.1.821817.3.579.2 .1285 1962 Unknown [id number] 2.16.840.1.805297.3.579.2 .1285 1962 Unknown [id number] 2.16.840.1.456110.3.579.2 .1285 1962 Unknown [id number] 2.16.840.1.976388.3.579.2 .1285 1962 Unknown [id number] 2.16.840.1.616069.3.579.2 .1285 1962 Unknown [id number] 2.16.840.1.171449.3.579.2 .1285 1962 Unknown [id number] 2.16.840.1.246180.3.579.2 .1285 1962 Unknown [id number] 2.16.840.1.115178.3.579.2 .1285 1962 Unknown [id number] 2.16.840.1.041533.3.579.2 .128 1962 Unknown [id number] 2.16.840.1.441653.3.579.2 .1285 1962 Unknown [id number] 2.16.840.1.143668.3.579.2 .1285 1962 Unknown [id number] 2.16840.1.879413.3.579.2 .128 1962 Unknown [id number] 2.16840.1.761235.3.579.2 .1285 1962 Unknown [id number] 2.840.1.202403.3.579.2 .1285 1962 Unknown [id number] 2.840.1.719006.3.579.2 .1285 1962 Unknown [id number] 2.840.1.882270.3.579.2 .1285 1962 Unknown [id number] 2.840.1.566611.3.579.2 .1285 1962 Unknown [id number] 2.840.1.305192.3.579.2 .1285 1962 Unknown [id number] 2.840.1.443349.3.579.2 .1285 1962 Unknown [id number] 2.840.1.995618.3.579.2 .1285 1962 Unknown [id number] 2.840.1.585037.3.579.2 .1285 1962 Unknown [id number] 2.840.1.333898.3.579.2 .1285 1962 Unknown [id number] 2.840.1.369043.3.579.2 .1285 1962 Unknown [id number] 2.840.1.553090.3.579.2 .1286 1962 Unknown [id number] 2.16.840.1.950946.3.579.2 .1286 1962 Unknown [id number] 2.16.840.1.454189.3.579.2 .1286 1962 Unknown [id number] 2.16.840.1.642159.3.579.2 .1286 1959 Unknown [id number] Self-pay [id number] Unknown [id number] Unknown [id number] 2.16.840.1.967908.3.579.2 .531 Unknown [id number] 2.16.840.1.428811.3.579.2 .531 Social History Date Type Detail Facility [...] Start: 03-03-2023 End: 09-05-2024 Tobacco use panel [facility] Start: 1960 Sex Assigned At Not on file [facility] How often to you hav e a drink containing alcohol? Never [facility] How many standard drinks containing alcohol do you have on a typical day? Patient does not drink [facility] Tobacco smoking stat us [facility] Unknown if ever smoked [facility] Work Phone: Start: 04-13-2024 End: 06-30-2024 Sex Female (finding) [facility] Start: 1960 Sex Assigned At Female F [facility] Goals Date Patient Goal Desired Activity /State Functional Status Date Assessment Result Facility 09-05-2024 Patient Health Quest ionnaire 2 item (PHQ-2) [Reported] [facility] 09-05-2024 Total score [AUDIT-C] 0 09/06/19 25 1:22 PM EDT Vicki Beaulieu MA [facility] Clinical Notes 09-30-2023 to 09-23-2024 Telephone Encounter - Taniya Jhaveri - 09/23/2024 2:19 PM EDTTelephone Encounter - Taniyalucy Jhaveri - 09/23/2024 2:19 PM EDTMzeina Mclaughlin MD - 09/22/2024 12:16 PM EDT Note Date & Type Note Facility 09-23-2024 Telephone encount er Note R ankle pain, MRI of R ankle was ordered Per Beata at [facility] MRI Dept, patient has clips in her head they were put in over 10 years ago and they were unable to complete the MRI Please advise next step [facility] 09-23-2024 Miscellaneous Notes Formattin g of this note might be different from the original. R ankle pain, MRI of R ankle was ordered Per Beata at [facility] MRI Dept, patient has clips in her head they were put in over 10 years ago and they were unable to complete the MRI Please advise next step documented in this encounter [facility] 09-22-2024 History of Presen t illness Narrative [...] (BMI) of 37.0 to 37.9 in adult ([facility]) Patient doing well with adipex and lost [...] 37.5 MG tablet documented in this encounter [facility] 09-06-2024 History of Presen t illness Narrative [...] DR. GUILLAUME NO MRI LABS 11/09/23 @ [facility] (CBC / SED RATE / CRP) S/P [...] PAIN. *NEW PROBLEM* RT ANKLE PAIN XRAY [facility] 08/22/24 WEARS ANKLE BRACE + [facility] LABS FOR GOUT 08/22/[address] MCLAUGHLIN FOR ANKLE PAIN, XRAYS DONE AT [facility], WEARS ANKLE BRACE, TAKING MOBIC. NOT GETTING [...] time dose the morning OF surgery HYDROcodone-acetaminophen (Ogden) 5-325 MG tablet 1 tablet, Oral, 4 [...] requiring urgent evaluation. documented in this encounter [facility] 09-05-2024 History of Presen t illness Narrative Images from the original note were not included. Major Gallardo, DO Obstetrics and Gynecology [facility] 1960 09/05/24 [id number] Yearly Wellness Exam Chief Complaint Patient presents with Gynecologic Exam LMP: 2005 HRT: None Last pap 09-01-23 LGSIL, HPV pos. Last mammogram 09-07-23 [facility]. Denies breast, urinary, or bowel concerns. [...] time dose the morning OF surgery HYDROcodone-acetaminophen (Ogden) 5-325 MG tablet Take 1 tablet by [...] costovertebral angle tenderness, no obvious scoliosis/kyphosis. 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 documented in this encounter [facility] 08-22-2024 History of Presen t illness Narrative [...] (BMI) of 37.0 to 37.9 in adult ([facility]) Patient overweight and difficult time losing weight. [...] and use norco PRN. Relevant Medications HYDROcodone-acetaminophen (Ogden) 5-325 MG tablet Primary insomnia Sleeping well [...] 2 views right documented in this encounter [facility] 06-29-2024 History of Presen t illness Narrative [...] requiring urgent evaluation. documented in this encounter [facility] 04-13-2024 Evaluation note Diagnosis Onset Date Resolution Other chronic pain acute Februa 2024 1:02pm Primary osteoarthritis of right knee acute April 13 025 1:02pm [facility] Work Phone: 1(271) 259-973602-26-2025 Evaluation note* Diagnosis Onset Date Resolution Status Admit Date Other chronic pain acute 2024 1:02pm Primary osteoarthritis of ri ght knee acute April 13 025 1:02pm Other chronic pain acute May 23, 2024 12:13pm Primary osteoarthritis of ri ght knee acute May 23, 2024 12:13pm [facility] Work Phone: 1(729) 730-472802-26-2025 Evaluation note* Diagnosis Onset Date Resolution Status [...] knee acute June 20, 2024 1: 35pm [facility] Work Phone: 1(527) 583-915402-26-2025 Evaluation note* Diagnosis Onset Date Resolution Status [...] Other chronic pain acute June 302024 2:03pm [facility] Work Phone: 1(821) 147-275102-19-2025 History of Present illness Narrative* Jr. Sonja [...] for requiring urgent evaluation. [id number] Telephone encounter Note* Telephone Encounter - KIRSTIE Rehman - 03/29/2024 6:[address] Saleh... her Last MDP was on 03/01/24, I loaded another medrol dose pack if you want to send in... [facility] Work Phone: 1(517) 549-532202-11-2025 Miscellaneous Notes* Telephone Encounter - KIRSTIE Rehman [...] call her in a MDP [facility] [place] documented in this [facility]02-11-2025 Telephone encounter Note* Telephone Encounter - Beata Rogers - 03/29/2024 3:21 PM EST error [facility] [id number] Miscellaneous Notes* Telephone Encounter - Beata Rogers - 03/29/2024 3:21 PM EST error documented in this [facility]02-11-2025 Telephone encounter Note* Telephone Encounter - Beata Rogers - 03/29/2024 2:59 PM EST Ph[facility] called and said that she is having swelling in her RT TKA said that she was suppose to call and let us know so that Dr. Saleh can call her in a MDP [place] [facility] [id number] Telephone encounter Note* Telephone Encounter - KIRSTIE Rehman - 03/01/2024 12:01 PM EST Rx loaded.. Dr. Saleh, can you send if you agree [facility] CenterEvniciqohm19-36-9421 Miscellaneous Notes* Telephone Encounter - KIRSITE Rehman - 03/01/2024 12:01 PM EST Rx loaded.. Dr. Saleh, can you send if you agree * Telephone Encounter - Genet Guillermo - 03/01/2024 11:29 AM EST Patient called stating her knee is swollen. She was told that when this happens a MDP packet can besent over to [facility] in [place]. documented in this encounterBothwell Regional Health CenterLmtegjizzx97-13-2805 Telephone encounter Note* Telephone Encounter - Genet Guillermo - 03/01/2024 11:29 AM EST Patient called stating her knee is swollen. She was told that when this happens a MDP packet can besent over to [facility] in [place]. [facility] CenterAcitqvkafj42-06-8752 History of Present illness Narrative* Terry Mclaughlin MD - 02/24/2024 1:46 PM ESTAssociated Problem(s): Class 2 severe obesity due to excess calories with serious comorbidity and body mass index (BMI) of 36.0 to 36.9 in adult (CMS/[facility]) Weight loss indicated. * Terry Mclaughlin MD [...] and use norco PRN. Relevant Medications HYDROcodone-acetaminophen (Ogden) 5-325 MG tablet cyclobenzaprine (Flexeril) 10 MG [...] Advised not to smoke. documented in this [facility]12-20-2024 Telephone encounter Note* Telephone Encounter - Terry Mclaughlin MD - 02/05/2024 9:50 AM EST [facility] CenterQnnhjplgpy77-84-4912 Miscellaneous Notes* Telephone Encounter - Terry Mclaughlin MD - 02/05/2024 9:50 AM EST documented in this [facility]12-17-2024 History of Present illness Narrative* Jr. Sonja [...] S/P MDP 10/14/23 FINISHED PHYSICAL THERAPY @ [facility] [place] ; POST-OP NO PAIN MGMT NOTES [...] for requiring urgent evaluation. documented in this encounterBothwell Regional Health CenterHaczdepqyo58-88-2984 History of Present illness Narrative* Apolonia Solis, [...] Tobacco Use: Medium Risk (12/29/2023) Received from [facility] Patient History Smoking Tobacco Use: Former Smokeless [...] ROM. Sonja Saleh D.O. documented in this encounterBothwell Regional Health CenterEcttydgsha31-89-6483 Telephone encounter Note* Telephone Encounter - Kevin Gómez NP - 12/22/2023 11:41 AM EST Called and discussed with patient. 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 She will call back with any issues. [facility] Work Phone: 1(366) 440-572011-05-2024 Miscellaneous Notes* Telephone Encounter - Kevin Gómez NP - 12/22/2023 11:41 AM EST Called and discussed with patient. 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 She will call back with any issues. * Telephone Encounter - Mei Alab - 12/22/2023 10:08 AM EST Patient called asking if she should still wear her brace her right knee? documented in this encounterBothwell Regional Health CenterUgnozcmcbj86-92-0286 Telephone encounter Note* Telephone Encounter - Mei Alba - 12/22/2023 10:08 AM EST Patient called asking if she should still wear her brace her right knee? [facility] HospitalPmztjuwkbs17-85-9521 History of Present illness Narrative* Jr. Sonja [...] time dose the morning OF surgery HYDROcodone-acetaminophen (Ogden) 5-325 MG tablet 1 tablet, Oral, 4 [...] I am acting as scribe for Dr. Saleh/[facility], PLAN: We have discussed (R) knee [...] time. Sonja Saleh D.O. documented in this encounterBothwell Regional Health CenterByawggjopw58-35-3368 History of Present illness Narrative* Tabatha Yesika [...] AD with supervision, step to gait pattern. Half-Way Goals Goal 1 : Patient will demonstrate [...] doing well this date. documented in this encounterBothwell Regional Health CenterAnheejkwmd02-12-5903 History of Present illness Narrative* Tabatha Rondon [...] AD with supervision, step to gait pattern. Half-Way Goals Goal 1 : Patient will demonstrate [...] doing well this date. documented in this encounterBothwell Regional Health CenterLwipraokof29-88-6846 Telephone encounter Note* Telephone Encounter - Kevin Gómez NP - 11/30/2023 1:09 PM EDT That's fine, we can provide her a note with those restrictions. [facility] Work Phone: 1(554) 102-931210-14-2024 Miscellaneous Notes* Telephone Encounter - Kevin Gómez [...] 2hrs for 10 min documented in this encounterBothwell Regional Health CenterGjpsvzvlem25-84-1513 Telephone encounter Note* Telephone Encounter - Mei Alba - 11/30/2023 12:59 PM EDT Patient called asking for a work note stating she is going back to work today. She would like to beable to sit every 2hrs for 10 min [facility] CenterEyrlcfucsc90-13-6881 History of Present illness Narrative* Jr. Sonja [...] Reason: Consult and Treat Referred to Provider: Tabatha Onofre PT Requested Specialty: Physical Therapy Number [...] [facility]. Sonja Saleh D.O. documented in this encounterBothwell Regional Health CenterHfufevowlw17-99-8042 History of Present illness Narrative* Terry Mclaughlin [...] MG 24 hr tablet documented in this encounterBothwell Regional Health CenterDitpneaong26-12-3720 Telephone encounter Note* Telephone Encounter - Chaparrita Watts - 11/13/2023 11:[address] Delfino Juarez has put PT on-hold; if a call is received per patient notify to contact Dr. Saleh's office. [facility] CenterDrfuodpdsl38-57-2020 Miscellaneous Notes* Telephone Encounter - Chaparrita Watts - 11/13/2023 11:[address] Delfino Juarez has put PT on-hold; if a call is received per patient notify to contact Dr. Saleh's office. * Telephone Encounter - Chaparrita Watts - 11/12/2023 1:51 PM EDT 6 visits out to 01/04/24 authorized. documented in this encounterBothwell Regional Health CenterInqknrihli49-84-3355 Telephone encounter Note* Telephone Encounter - Chaparrita Watts - 11/12/2023 1:51 PM EDT 6 visits out to 01/04/24 authorized. [facility] CenterNjkybwhnru46-25-6207 Telephone encounter Note* Telephone Encounter - Mei [...] would like some kind of relief . [place] [address]Neuxlgfeqt33-99-0216 Miscellaneous Notes* Telephone Encounter - Mei Alba [...] kind of relief . documented in this encounterBothwell Regional Health CenterWxmwnulxti64-19-8621 History of Present illness Narrative* Jr. Sonja [...] strength / ROM and discuss lab results ([facility]). Sonja Saleh D.O. documented in this encounterBothwell Regional Health CenterJzlkxtlesf08-94-4422 Telephone encounter Note* Telephone Encounter - Mei Alba - 10/30/2023 10:31 AM EDT Patient called stating she tried to go back to work on 10/26/2023 and was not able to make it the four hours that stats in her chart for going back to work. She didn't work 10/27/2023 and 10/28/2023 can she have a work note for those days/ [facility] Kfdveovdfn74-87-1711 Miscellaneous Notes* Telephone Encounter - Mei Alba - 10/30/2023 10:31 AM EDT Patient called stating she tried to go back to work on 10/26/2023 and was not able to make it the four hours that stats in her chart for going back to work. She didn't work 10/27/2023 and 10/28/2023 can she have a work note for those days/ documented in this [facility]09-11-2024 History of Present illness Narrative* KIRSTIE Rehman [...] for requiring urgent evaluation. documented in this encounterBothwell Regional Health CenterBytltdldjg57-00-7877 History of Present illness Narrative* KIRSTIE Rehman [...] for requiring urgent evaluation. documented in this encounterBothwell Regional Health CenterGwkakhbtef17-19-5055 Telephone encounter Note* Telephone Encounter - Mei Alba - 10/12/2023 11:42 AM EDT Patient calling to see if she can have a refill on her Percocet? Says she is still in a lot of pain. [facility] CenterOlvmqauxdd90-94-2333 Miscellaneous Notes* Telephone Encounter - Mei Alba - 10/12/2023 11:42 AM EDT Patient calling to see if she can have a refill on her Percocet? Says she is still in a lot of pain. documented in this [facility]08-25-2024 Telephone encounter Note* Telephone Encounter - KIRSTIE Rehman - 10/11/2023 8:29 PM EDT Pt Should call for refill if needed. [facility] Work Phone: 1(357) 508-484808-25-2024 Miscellaneous Notes* Telephone Encounter - KIRSTIE Rehman - 10/11/2023 8:29 PM EDT Pt Should call for refill if needed. documented in this [facility]08-14-2024 Telephone encounter Note* Telephone Encounter - Anamaria Hernandez - 09/30/2023 1:40 PM EDT Called pt and left vm to call the office [place] [id number] Miscellaneous Notes* Telephone Encounter - Anamaria Hernandez [...] refill of Percocet called in to [facility] in [place]. She is not completely out , but does not want to run out. Allergies: in chart Pt had RT TKA 09/08/23 Her call back [phone] documented in this encounterBothwell Regional Health CenterHfwnfnywnd44-13-6124 Telephone encounter Note* Telephone Encounter - KIRSTIE Rehman - 09/30/2023 1:07 PM EDT Oarrs reviewed. RX sent to pharmacy. Please notify pt. Take least effective dose for pain control. [facility] CenterRjeqqpvuuc01-21-2688 Telephone encounter Note* Telephone Encounter - Anamaria Hernandez - 09/30/2023 9:50 AM EDT Pt called requesting refill of Percocet called in to [facility] in [place]. She is not completely out , but does not want to run out. Allergies: in chart Pt had RT TKA 09/08/23 Her call back [phone] [facility] HealthcareEvaluation note* Diagnosis Gastroesophageal reflux disease without esophagitis- Primary Esophageal reflux Chronic constipation Unspecified constipation History of allergic reaction documented in this encounter [facility] HealthcareEvaluation note* Diagnosis Lightheaded- Primary Dizziness and [...] of right knee documented in this encounter [facility] HealthcareEvaluation note* Diagnosis Primary osteoarthritis of right knee- Primary Postoperative pain of right knee Status post right knee replacement Presence of artificial knee joint, right documented in this encounter [facility] HealthcareEvaluation note* Diagnosis Lumbar spondylosis- Primary [...] knee joint, right documented in this encounter [facility] HealthcareEvaluation note* Diagnosis Lumbar spondylosis- Primary [...] right knee- Primary documented in this encounter [facility] HealthcareEvaluation note* Diagnosis Lumbar spondylosis- Primary [...] knee joint, right documented in this encounter [facility] HealthcareEvaluation note* Diagnosis Lumbar spondylosis- Primary [...] knee joint, right documented in this encounter [facility] HealthcareEvaluation note* Diagnosis Lumbar spondylosis- Primary [...] of left knee documented in this encounter [facility] HealthcareEvaluation note* Diagnosis Lumbar spondylosis- Primary Lumbosacral [...] knee joint, right documented in this encounter [facility] HealthcareEvaluation note* Diagnosis Lumbar spondylosis- Primary [...] of right knee documented in this encounter [facility] HealthcareEvaluation note* Diagnosis Lumbar spondylosis- Primary [...] knee joint replacement documented in this encounter [facility] HealthcareEvaluation note* Diagnosis Lumbar spondylosis- Primary [...] depressive disorder, recurrent episode, mild degree (HCC) ([facility]/HCC) Major depressive disorder, recurrent episode, mild Body [...] adult Insomnia, unspecified documented in this encounter [facility] HealthcareEvaluation note* Diagnosis Lumbar spondylosis- Primary Lumbosacral [...] of left knee documented in this encounter [facility] HealthcareEvaluation note* Diagnosis Lumbar spondylosis- Primary Lumbosacral [...] in adult (CMS/HCC) documented in this encounter [facility] HealthcareEvaluation note* Diagnosis Lumbar spondylosis- Primary Lumbosacral [...] depressive disorder, recurrent episode, mild degree (HCC) (CMS/[facility]) Major depressive disorder, recurrent episode, mild Body [...] right knee- Primary documented in this encounter [facility] HealthcareEvaluation note* Diagnosis Lumbar spondylosis- Primary Lumbosacral [...] Primary Routine general medical examination at a [facility] care facility Lumbar spondylosis Lumbosacral spondylosis without myelopathy Primary osteoarthritis of right knee MDD (major depressive disorder), recurrent episode, moderate (CMS/HCC) Overflow incontinence of urine Overflow incontinence Class 2 severe obesity due to excess calories with serious comorbidity and body mass index (BMI) of 36.0 to 36.9 in adult (CMS/HCC) Pain and swelling of right knee- Primary documented in this encounter [facility] HealthcareEvaluation note* Diagnosis Lumbar spondylosis- Primary [...] Primary Routine general medical examination at a [facility] care [facility] Lumbar spondylosis Lumbosacral spondylosis without myelopathy Primary [...] ri ght knee acute April 13 1:02pm [facility] Work Phone: Evaluation note* Diagnosis Lumbar spondylosis- [...] (BMI) of 36.0 to 36.9 in adult ([facility]) Lumbar spondylosis- Primary Lumbosacral spondylosis without myelopathy Primary osteoarthritis of right knee Acute right ankle pain Primary insomnia Persistent disorder of initiating or maintaining sleep Seasonal allergic rhinitis due to pollen Class 2 severe obesity due to excess calories with serious comorbidity and body mass index (BMI) of 37.0 to 37.9 in adult ([facility]) documented in this encounter [facility] HealthcareEvaluation note* Diagnosis Lumbar spondylosis- Primary Lumbosacral [...] (BMI) of 36.0 to 36.9 in adult ([facility]) Lumbar spondylosis- Primary Lumbosacral spondylosis without myelopathy Primary osteoarthritis of right knee Acute right ankle pain Primary insomnia Persistent disorder of initiating or maintaining sleep Seasonal allergic rhinitis due to pollen Class 2 severe obesity due to excess calories with serious comorbidity and body mass index (BMI) of 37.0 to 37.9 in adult ([facility]) Encounter for gynecological examination without abnormal finding- Primary Encounter for Papanicolaou smear of cervix Breast cancer screening by mammogram Osteopenia, unspecified location Screening for osteoporosis Special screening for osteoporosis Asymptomatic menopausal state documented in this encounter [facility] HealthcareEvaluation note* Diagnosis Lumbar spondylosis- Primary Lumbosacral [...] Primary Routine general medical examination at a [facility] care facility Lumbar spondylosis Lumbosacral spondylosis without myelopathy Primary osteoarthritis of right knee MDD (major depressive disorder), recurrent episode, moderate (HCC) Overflow incontinence of urine Overflow incontinence Class 2 severe obesity due to excess calories with serious comorbidity and body mass index (BMI) of 36.0 to 36.9 in adult ([facility]) Lumbar spondylosis- Primary Lumbosacral spondylosis without myelopathy Primary osteoarthritis of right knee Acute right ankle pain Primary insomnia Persistent disorder of initiating or maintaining sleep Seasonal allergic rhinitis due to pollen Class 2 severe obesity due to excess calories with serious comorbidity and body mass index (BMI) of 37.0 to 37.9 in adult ([facility]) Right ankle pain, unspecified chronicity Tendonitis of ankle, right History of right knee joint replacement Acute pain of right knee documented in this encounter [facility] HealthcareEvaluation note* Diagnosis Lumbar spondylosis- Primary Lumbosacral [...] (BMI) of 36.0 to 36.9 in adult ([facility]-HCC) Lumbar spondylosis- Primary Lumbosacral spondylosis without myelopathy Primary osteoarthritis of right knee Acute right ankle pain Primary insomnia Persistent disorder of initiating or maintaining sleep Seasonal allergic rhinitis due to pollen Class 2 severe obesity due to excess calories with serious comorbidity and body mass index (BMI) of 37.0 to 37.9 in adult ([facility]) Lumbar spondylosis- Primary Lumbosacral spondylosis without myelopathy Primary osteoarthritis of right knee Postoperative pain of right knee Class 2 severe obesity due to excess calories with serious comorbidity and body mass index (BMI) of 37.0 to 37.9 in adult ([facility]-HCC) documented in this encounter [facility] HealthcareReason for referral (narrative)* Consultation (Routine) - Closed Specialty Diagnoses / Procedures Referred By Benjy rondon Referred To Contact Physical Therapy Diagnoses S/P TKR (total knee replacement), right Primary osteoarthritis of right knee Procedures [place] OFFICE/OUTPATIENT NEW HIGH MDM 60 MINUTES Jr. Sonja Saleh DO [address] [place] [address] Tabatha Onofre, PT [address] [facility] [address] [place] [address] Referral ID Status Reason Start Date Expiration Date V isits Requested Visits Authorized [id number] Closed Consult and Treat 11/23/2023 05/21/2024 1 1 [facility] HealthcareReason for visit Narrative* Rehabilitation - Outpatient (Routine) - Authorized Specialty Diagnoses / Procedures Referred By Benjy rondon Referred To Contact Physical Therapy Diagnoses Presence of artificial knee joint, right Procedures [place] MANUAL THERAPY TQS 1/> REGIONS EACH 15 MINUTES [place] THER PX 1/> AREAS EACH 15 MIN NEUROMUSC REEDUCA [place] THERAPEUTIC PX 1/> AREAS EACH 15 MIN EXERCISES PHYS/OCC THERAPY Jr. Sonja Shell, DO [address] [facility] [address] [place] [address] Phone: tel: fax: [facility] CI PT [address] [facility] [address] [place] [address] Phone: tel: fax: Referral ID Status Reason Start Date Expiration Date Visits Requested Visits Authorized [id number] Authorized Specialty Services Required 11/06/2023 01/04/2024 8 8 [facility] Healthcare Summary Purpose Family History No Family [...] knee Terry Mclaughlin MD [address] [place] [address] Referral ID Status Reason Start Date Expiration Date Visits Re quested Visits Authorized [id number] Closed 1 1 Chief Complaint and Reason [...] [facility] DATE CREATED AUTHOR AUTHOR'S ORGANIZ ATION 06/21/2024 [facility] DATE CREATED AUTHOR AUTHOR'S ORGANIZ ATION 09/21/2024 [facility] DATE CREATED AUTHOR AUTHOR'S ORGANIZ ATION 09/24/2024 [facility] EPIC DATE CREATED AUTHOR AUTHOR'S ORGANIZ ATION 09/25/2024 [facility] Reason for Visit (unrecogniz ed section and [...] Presence of artificial knee joint, right Procedures [place] MANUAL THERAPY TQS 1/> REGIONS EACH 15 MINUTES NJ THER PX 1/> AREAS EACH 15 MIN NEUROMUSC REEDUCA [place] THERAPEUTIC PX 1/> AREAS EACH 15 MIN EXERCISES PHYS/OCC THERAPY SS Jr. Sonja Saleh, DO [address] [facility] [address] [place] [address] [facility] [address] [facility] [address] [place] [address] Referral ID Status Reason Start Date Expiration Date Visits Requested Visits Authorized [id number] Authorized Specialty Services Required 11/06/2023 01/04/2024 8 8 Reason Onset Date Comments Med Refill 12/14/2023 Reason Comments Pain Reason Onset Date Comments Med Refill 01/18/2024 Referral ID Status Reason Start Date Expiration Date Visits Requested Visits Authorized [id number] Authorized Specialty Services Required 10/22/2023 12/07/2023 2 2 Reason Onset Date Comments refill 09/30/2023 Reason Onset Date Comments Med Refill 10/12/2023 Specialty Diagnoses / Procedures Referred By Contac t Referred To Contact Physical Therapy Diagnoses Presence of artificial knee joint, right Procedures [place] OFFICE/OUTPATIENT NEW HIGH MDM 60 MINUTES Jr. Sonja Saleh, DO [address] [facility] [address] [place] [address] [facility] [address] [facility] [address] [place] [address] Referral ID Status Reason Start Date Expiration Date Visits Requested Visits Authorized [id number] Authorized Specialty Services Required 09/09/2023 12/07/2023 12 12 Referral ID Status Reason Start Date Expiration Date V isits Requested Visits Authorized [id number] Closed Specialty Services Required 09/09/2023 12/07/2023 12 12 Reason Onset Date Comments Med Refill 10/27/2023 Reason Onset Date Comments NC/NS for PT 11/04/2023 Tried to contact re: NC/NS for last scheduled PT; had to lm. I requested a call back due to she has an ext on the referral dated to begin 11/05. Call Back 11/04/2023 She called aezem garcia that the appt was marked wrong [...] 09-01-23 LGSIL, HPV pos. Last mammogram 09-07-23 [facility].Denies breast, urinary, or bowel concerns. Reason Comments Follow-up Reason Comments Follow-up Adipex f/u UTI Possible uti Reason Onset Date Comments unable to complete mri 09/23/2024 Care Teams (unrecognized sec tion and content) [employer] Relationship Specialty Start Date End Date Terry Mclaughlin MD PCP - General Cardiology 07/01/22 [employer] Relationship Specialty Start Date End Date Terry Mclaughlin MD [address] [place] [address] PCP - General Family Medicine 06/11/23 [employer] Relationship Specialty Start Date End Date Terry Mclaughlin MD [address] [place] [address] PCP - General Family Medicine 06/11/23 [employer] Relationship Specialty Start Date End Date Terry Mclaughlin MD [address] [place] [address] PCP - General Family Medicine 06/11/23 [employer] Relationship Specialty Start Date End Date Terry Mclaughlin MD [address] [place] [address] PCP - General Family Medicine 06/11/23 Terry Mclaughlin MD [address] [place] [address] PCP - [employer] 10/18/23 [employer] Relationship Specialty Start Date End Date Terry Mclaughlin MD [address] [place] [address] PCP - General Family Medicine 06/11/23 Terry Mclaughlin MD [address] [place] [address] PCP - [employer] 10/18/23 [employer] Relationship Specialty Start Date End Date Terry Mclaughlin MD [address] [place] [address] PCP - General Family Medicine 06/11/23 Terry Mclaughlin MD [address] [place] [address] PCP - [employer] 10/18/23 [employer] Relationship Specialty Start Date End Date Terry Mclaughlin MD [address] [place] [address] PCP - General Family Medicine 06/11/23 Terry Mclaughlin MD [address] [place] [address] PCP - [employer] 10/18/23 [employer] Relationship Specialty Start Date End Date Terry Mclaughlin MD [address] [place] [address] PCP - General Family Medicine 06/11/23 Terry Mclaughlin MD [address] [place] [address] PCP - [employer] 10/18/23 [employer] Relationship Specialty Start Date End Date Terry Mclaughlin MD [address] [place] [address] PCP - General Family Medicine 06/11/23 Terry Mclaughlin MD [address] [place] [address] PCP - [employer] 10/18/23 [employer] Relationship Specialty Start Date End Date Terry Mclaughlin MD [address] [place] [address] PCP - General Family Medicine 06/11/23 Terry Mclaughlin MD [address] [place] [address] PCP - [employer] 10/18/23 [employer] Relationship Specialty Start Date End Date Terry Mclaughlin MD [address] [place] [address] PCP - General Family Medicine 06/11/23 Terry Mclaughlin MD [address] [place] [address] PCP - [employer] 10/18/23 [employer] Relationship Specialty Start Date End Date Terry Mclaughlin MD [address] [place] [address] PCP - General Family Medicine 06/11/23 Terry Mclaughlin MD [address] [place] [address] PCP - [employer] 10/18/23 [employer] Relationship Specialty Start Date End Date Terry Mclaughlin MD [address] [place] [address] PCP - General Family Medicine 06/11/23 Terry Mclaughlin MD [address] [place] [address] PCP - [employer] 10/18/23 [employer] Relationship Specialty Start Date End Date Terry Mclaughlin MD [address] [place] [address] PCP - General Family Medicine 06/11/23 Terry Mclaughlin MD [address] [place] [address] PCP - [employer] 10/18/23 [employer] Relationship Specialty Start Date End Date Terry Mclaughlin MD [address] [place] [address] PCP - General Family Medicine 06/11/23 Terry Mclaughlin MD [address] [place] [address] PCP - [employer] 10/18/23 [employer] Relationship Specialty Start Date End Date Terry Mclaughlin MD [address] [place] [address] PCP - General Family Medicine 06/11/23 Terry Mclaughlin MD [address] [place] [address] PCP - [employer] 10/18/23 [employer] Relationship Specialty Start Date End Date Terry Mclaughlin MD [address] [place] [address] PCP - General Family Medicine 06/11/23 Terry Mclaughlin MD [address] [place] [address] PCP - [employer] 10/18/23 [employer] Relationship Specialty Start Date End Date Terry Mclaughlin MD [address] [place] [address] PCP - General Family Medicine 06/11/23 Terry Mclaughlin MD [address] [place] [address] PCP - [employer] 10/18/23 [employer] Relationship Specialty Start Date End Date Terry Mclaughlin MD [address] [place] [address] PCP - General Family Medicine 06/11/23 [employer] Relationship Specialty Start Date End Date Terry Mclaughlin MD [address] [place] [address] PCP - General Family Medicine 06/11/23 [employer] Relationship Specialty Start Date End Date Terry Mclaughlin MD [address] [place] [address] PCP - General Family Medicine 06/11/23 [employer] Relationship Specialty Start Date End Date Terry Mclaughlin MD [address] [place] [address] PCP - General Family Medicine 06/11/23 Terry Mclaughlin MD [address] [place] [address] PCP - [facility] 10/18/23 [employer] Relationship Specialty Start Date End Date Terry Mclaughlin MD [address] [place] [address] PCP - General Family Medicine 06/11/23 [employer] Relationship Specialty Start Date End Date Terry Mclaughlin MD [address] [place] [address] PCP - General Family Medicine 06/11/23 [employer] Relationship Specialty Start Date End Date Terry Mclaughlin MD [address] [place] [address] PCP - General Family Medicine 06/11/23 [employer] Relationship Specialty Start Date End Date Terry Mclaughlin MD [address] [place] [address] PCP - General Family Medicine 06/11/23 [employer] Relationship Specialty Start Date End Date Terry Mclaughlin MD [address] [place] [address] PCP - General Family Medicine 06/11/23 [employer] Relationship Specialty Start Date End Date Terry Mclaughlin MD [address] [place] [address] PCP - General Family Medicine 06/11/23 [employer] Relationship Specialty Start Date End Date Terry Mclaughlin MD [address] [place] [address] PCP - General Family Medicine 06/11/23 [employer] Relationship Specialty Start Date End Date Terry Mclaughlin MD [address] [place] [address] PCP - General Family Medicine 06/11/23 [employer] Relationship Specialty Start Date End Date Terry Mclaughlin MD [address] [place] [address] PCP - General Family Medicine 06/11/23 [employer] Relationship Specialty Start Date End Date Terry Mclaughlin MD [address] [place] [address] PCP - General Family Medicine 06/11/23 [employer] Relationship Specialty Start Date End Date Terry Mclaughlin MD [address] [place] [address] PCP - General Family Medicine 06/11/23 [employer] Relationship Specialty Start Date End Date Terry Mclaughlin MD [address] [place] [address] PCP - General Family Medicine 06/11/23 Terry Mclaughlin MD [address] [place] [address] PCP - [employer] 10/18/23 [employer] Relationship Specialty Start Date End Date Terry Mclaughlin MD [address] [place] [address] PCP - General Family Medicine 06/11/23 Terry Mclaughlin MD [address] [place] [address] PCP - [employer] 10/18/23 [employer] Relationship Specialty Start Date End Date Terry Mclaughlin MD [address] [place] [address] PCP - General Family Medicine 06/11/23 Terry Mclauhglin MD [address] [place] [address] PCP - [employer] 10/18/23 [employer] Relationship Specialty Start Date End Date Terry Mclaughlin MD [address] [place] [address] PCP - General Family Medicine 06/11/23 Terry Mclaughlin MD [address] [place] [address] PCP - [employer] 10/18/23 Team Status: Active Member Role [...] April 13, 2024 End: April 13, 2024 [employer] Relationship Specialty Start Date End Date Terry Mclaughlin MD [address] [place] [address] PCP - General Family Medicine 06/11/23 Terry Mclaughlin MD [address] [place] [address] PCP - [employer] 10/18/23 Team Status: Active Member Role Status Dates Terry Mclaughlin MD Primary Care Provider Active Team Status: Inactive Member Role Status Dates Luciano Reyes MD Attending Provider Active Sta rt: May 11, 2024 End: May 11, 2024 Terry Mclaughlin MD Primary Care Provider Active S tart: May 11, 2024 End: May 11, 2024 Team Status: Inactive Member Role Status Dates Lucaino Reyes MD Attending Provider Active Sta rt: May 23, 2024 End: May 23, 2024 Terry Mclaughlin MD Primary Care Provider Active S tart: May 23, 2024 End: May 23, 2024 Team Status: Active Member Role Status Dates Terry Mclaughlin MD Primary Care Provider Active S tart: May 30, 2024 Luciano Reyes MD Attending Provider Active Sta rt: May 30, 2024 Team Status: Active Member Role Status Dates uLciano eRyes MD Attending Provider, Other Provider Active Start: [...] June 20, 2024 End: June 20, 2024 [employer] Relationship Specialty Start Date End Date Terry Mclaughlin MD [address] [place] [address] PCP - General Family Medicine 06/11/23 [employer] Relationship Specialty Start Date End Date Terry Mclaughlin MD [address] [place] [address] PCP - General Family Medicine 06/11/23 Team Status: Inactive Member Role Status Dates Terry Mclaughlin MD Primary Care Provider Active S tart: June 30, 2024 End: June 30, 2024 Luciano Reyes MD Attending Provider Active Sta rt: June 30, 2024 End: June 30, 2024 [employer] Relationship Specialty Start Date End Date Terry Mclaughlin MD [address] [place] [address] PCP - General Family Medicine 06/11/23 [employer] Relationship Specialty Start Date End Date Terry Mclaughlin MD [address] [place] [address] PCP - General Family Medicine 06/11/23 [employer] Relationship Specialty Start Date End Date Terry Mclaughlin MD [address] [place] [address] PCP - General Family Medicine 06/11/23 [employer] Relationship Specialty Start Date End Date Terry Mclaughlin MD [address] [place] [address] PCP - General Family Medicine 06/11/23 [employer] Relationship Specialty Start Date End Date Terry Mclaughlin MD [address] [place] [address] PCP - General Family Medicine 06/11/23 [employer] Relationship Specialty Start Date End Date Terry Mclaughlin MD [address] [place] [address] PCP - General Family Medicine 06/11/23 Goals [...] BE BASED ON THE PRIMARY CLINICAL RECORDS. [employer] [facility]. provides no warranty or guarantee of the accuracy or completeness of information in this document.
== END 2024-10-03 12:41 | disposition home or self-care (01) ==
LOC: RAD 12:41
PROVIDERS: PCP Family Medicine; Visit Provider Obstetrics & Gynecology
DX: M85.80 Other specified disorders of bone density and structure, unspecified site (principal); Z13.820 Encounter for screening for osteoporosis; Z78.0 Asymptomatic menopausal state; M85.88 Other specified disorders of bone density and structure, other site
CPT/HCPCS: 77080

== ENCOUNTER 2024-11-01 10:58 | Outpatient (OUT) | payer BC, SELFPAY ==
--- OUTSIDE RECORDS SUMMARY | 2024-10-20 07:30 | XMS_ITS ---
Author Organization [facility] Address [address] [address], [place] [address] Care Team Providers Care Administration Assistant Name Role Phone LouTerry thompson Primary Care Provider UnavailCristino Wilder Unavailable [phone] Allergies Allergen (clinical drug ingredient) Drug/Non Drug Allergy documented on EMR Reaction Allergy Type Onset Date Status sulfamethoxazole / trimethoprim Bactrim Unknown Drug Allergy Active erythromycin Erythromycin Unknown Drug Allergy A ctive REASON FOR VISIT Right Ankle Pain Medications Medication SIG (Take, Route, Frequency, Duration) Notes Start Date End Date Status Amitriptyline HCl 50 MG Tablet Oral; Duration: 90 Days Acti ve Rexulti 3 MG Tablet Oral; Duration: 30 Days Active Ambien Active oxyBUTYnin Chloride ER 15 MG Tablet Extended Release 24 Hour TAKE 1 TABLET BY MOUTH EVERY DAY DO NOT CRUSH, CHEW, OR SPLIT Oral; Duration: 30 Days Active Venlafaxine HCl ER 150 MG Capsule Extended Release 24 Hour TAKE 2 CAPSULES BY MOUTH IN THE MORNING Oral; Duration: 30 Days Active Adipex-P Active Topamax Active PriLOSEC Active Mobic Active Valium Active [place] Active Social History Section Notes: Patient is a former smoker. Social alcohol use. Encounters Encounter Location Date Provider Diagnosis [facility], [facility] [address] [address], [facility] [place] [address] 10/20/2024 Cristino Posada Posterior tibial tendon dysfunction (PTTD) of right lower extremity M76.821 Assessments Encounter Date Diagnosis (ICD Code) Assessment Notes Treatment Notes Treatment Clinical Notes Section Notes 10/20/2024 Posterior tibial tendon dysfunction (PTTD) of right lower extremity (ICD-10 - M76.821) Patient was seen and evaluated. Patient education provided and all questions answered to satisfaction. I recommended nonsurgical treatment at this time. Treatment advices included: - RICE therapy as well as shoe and activity modification - Physical therapy was discussed however she has a high co-pay and may require PT for her knee so she would like to hold off for now - Ankle xrays obtained in August are nonweight bearing but mortise is intact. I believe her ankle pain is actually hindfoot pain secondary to PTTD. - I recommended ASO vs Shock doctor ankle brace - Offered topical compound however patient would like to use aspercreme with Voltaren for time being. She will call if should would like a prescription - Imaging ordered: foot which should be obtained prior to f/u Plan Of Treatment Treatment Notes Assessment Notes Posterior tibial tendon dysf unction (PTTD) of right lower extremity Patient was seen and evaluated. Patient education provided and all questions answered to satisfaction. I recommended nonsurgical treatment at this time. Treatment advices included: - RICE therapy as well as shoe and activity modification - Physical therapy was discussed however she has a high co-pay and may require PT for her knee so she would like to hold off for now - Ankle xrays obtained in August are nonweight bearing but mortise is intact. I believe her ankle pain is actually hindfoot pain secondary to PTTD. - I recommended ASO vs Shock doctor ankle brace - Offered topical compound however patient would like to use aspercreme with Voltaren for time being. She will call if should would like a prescription - Imaging ordered: foot which should be obtained prior to f/u Next Appt Details Follow Up: 2 Months,prn, [place] son: History and Physical Notes * HPI (History of Present Illness) Category Sub-Category Detail Notes Category Not es Ankle Phuong is a 64F who underwent right TKA with Dr. Saleh in 2023. She relates she has had nothing but problems since. She is schedule to see Dr. Ward in the upcoming weeks. She believes her altered gait and knee pain have led to right ankle pain which has been present for ~2 months. She has attempted aspercreme and neoprene brace with marginal help. She take mobic daily and tylenol prn. When pain is unbearable she will take norco. Examination Category Sub-Category Detail Notes Category Not es General Examination Skin: Skin intact. No sign of infection Neuro: LTS intact to plantar and dorsal foot. Negative tinel's sign Vasc: pedal pulses are palpable. No calf pain on squeeze MSK: Collapse of arch when in stance. POP at navicular tuberosity and sinus tarsi. RF valgus and FF varus are reducible but there is weakness on inversion Progress Notes * Herman RANDHAWAOB:1960 (64 yo F)Acc No.[id number]:10/20/2024 New Patient Patient: Phuong Blake Provider: Jamal Posada DPM :1960 A ge:64 Y S ex:Female Date:10/20/2024 Phone: Address:[address] [place] [address], [address], [place], [phone] Pcp:Terry Acevedo Subjective: * Chief Complaints: * R ight Ankle Pain * HPI: A nkle: Phuong is a 64F who underwent right TKA with Dr. Saleh in 2023. She relates she has had nothing but problems since. She is schedule to see Dr. Ward in the upcoming weeks. She believes her altered gait and knee pain have led to right ankle pain which has been present for ~2 months. She has attempted aspercreme and neoprene brace with marginal help. She take mobic daily and tylenol prn. When pain is unbearable she will take norco. * ROS: G eneral / Constitutional: Patient denies change in appetite, chills, fatigue, fever. Allergy / Immunology: Patient denies blistering skin, cough, congestion, itching, rash. Endocrine: Patient denies cold intolerance, excessive sweating, excessive thirst, frequent urination, hair loss. Respiratory: Patient denies chest pain, cough, pain with inspiration, shortness of breath. Cardiovascular: Patient denies chest pain, claudication, dyspnea on exertion, palpitations. Gastrointestinal: Patient denies abdominal pain, nausea, vomiting. Hematology: Patient denies bleeding problems, anemia. Peripheral Vascular: Patient denies absent pulses in feet, blood clots in legs, cold extremities, pain / cramping in legs after exertion. Skin: Patient denies changing moles, hair changes, keloid formation, nail changes, ulcerations. Neurologic: Patient denies tingling / numbness, stroke, paralysis, loss of use of extremity. * Medical History: Arthritis Stomach Ulcers Joint Replacement Depression/Anxiety Medical History Verified * Surgical History: Gallbladder Sinus Left/Right Knee Replacement Surgical History verified. * Family History: F ather: diagnosed with Essential hypertension. M other: diagnosed with Essential hypertension, Other malignant neoplasm without specification of site. P aternal Grandfather: diagnosed with Type 2 diabetes mellitus without complication, unspecified whether buttermaker helper insulin use. M aternal Grandfather: diagnosed with Type 2 diabetes mellitus without complication, unspecified whether buttermaker helper insulin use. F amily History Verified.. * Social History: Social History Verified. P lizbet is a former smoker. Social alcohol use. * Medications: T akingNorco Valium Mobic PriLOSEC Topamax Adipex-P Ambien Rexulti 3 MG Tablet Oral Amitriptyline HCl 50 MG Tablet Oral Venlafaxine HCl ER 150 MG Capsule Extended Release 24 Hour TAKE 2 CAPSULES BY MOUTH IN THE MORNING Oral oxyBUTYnin Chloride ER 15 MG Tablet Extended Release 24 Hour TAKE 1 TABLET BY MOUTH EVERY DAY DO NOT CRUSH, CHEW, OR SPLIT Oral Medication List reviewed and reconciled with the patientTaking [place] Taking Valium Taking Mobic Taking PriLOSEC Taking Topamax Taking Adipex-P Taking Ambien Taking Rexulti 3 MG Tablet Oral Taking Amitriptyline HCl 50 MG Tablet Oral Taking Venlafaxine HCl ER 150 MG Capsule Extended Release 24 Hour TAKE 2 CAPSULES BY MOUTH IN THE MORNING Oral Taking oxyBUTYnin Chloride ER 15 MG Tablet Extended Release 24 Hour TAKE 1 TABLET BY MOUTH EVERY DAY DO NOT CRUSH, CHEW, OR SPLIT Oral Medication List reviewed and reconciled with the patient * Allergies: E rythromycinBactrimyesAllergies Verified. Objective: * Examination: G eneral Examination: S kin: Skin intact. No sign of infection Neuro: LTS intact to plantar and dorsal foot. Negative tinel's sign Vasc: pedal pulses are palpable. No calf pain on squeeze MSK: Collapse of arch when in stance. POP at navicular tuberosity and sinus tarsi. RF valgus and FF varus are reducible but there is weakness on inversion. Assessment: * Assessment: 1. P osterior tibial tendon dysfunction (PTTD) of right lower extremity - M76.821 (Primary)? Plan: * Treatment: * Follow Up: 2 Months,prn Billing Information: * Visit Code: 55228 Office Visit, New Pt., Level 3. * Procedure Codes: * Sign off status: Completed true * Provider: Jamal Posada DPM Date: 10/20/2024 Generated for Destiney cisneros/Andrew/Corbin on: 11/01/2024 11:00 AM EDT
--- OUTSIDE RECORDS SUMMARY | 2024-11-01 11:00 | XMS_ITS | Encounter Summary ---
Author Organization [facility] Address [address] [place] [address] Care Team Providers Care Food Service Technician Name Role Phone Terry Acevedo MD Primary Care Provider [phone] Marlo Lewis MD Primary Care Provider [phone] Reason for Referral * Consultation (Routine) - Authorized Specialty Diagnoses / Procedures Referred By Benjy t Referred To Contact Orthopaedic Surgery Diagnoses Prosthetic joint loosening, initial encounter Jr. Enrique Saleh DO [address] [facility] [address] [place] [address] Phone: tel: fax: Darnell Kaplan MD [address] [place] [address] Phone: tel: fax: Referral ID Status Reason Start Date Expiration Date Visits Requested Visits Authorized [id number] Authorized Specialty Services Required 10/07/2024 04/05/2025 1 1 Reason for Visit * Reason Onset Date Comments referral 10/07/2024 Encounter Details Date Type Department Care Team (Late st Contact Info) Description 10/07/2024 Telephone [facility] [address] [facility] [address] [place] [address] Jr. Enrique Saleh, DO [address] [facility] [address] [place] [address] referral Social History Tobacco Use Types Packs/Day Years [...] * Telephone Encounter - Taniya Jhaveri - 10/26/2024 1:55 PM EDT Patient seeing Dr Al Ward 10/31/24 Faxed office notes to [phone] * Addendum Note - BHARGAV Myles - 10/07/2024 10:58 AM EDTAddended by: JOAN CHERRY on: 10/07/2024 10:58 AM Modules accepted: Orders * Telephone Encounter - BHARGAV Myles - 10/07/2024 10:55 AM EDT Referral placed and faxed. * Telephone Encounter - Taniya Jhaveri - 10/07/2024 10:27 AM EDT R TKA Prosthetic loosening, LES 10/04/24 Patient was referred to Dr Forrester & he is not in her insurance network. She has a list of many providers in her network; however, she wanted to know if there was anyone else Dr knew of that she could check into as she trusts his opinion? [phone] documented in this encounter Plan of Treatment Upcoming Encounters Date Type Department Care Team (Late st Contact Info) Description 11/15/2024 10:00 AM EDT Office Visit [facility] [address] [place] [address] Jr. Enrique Saleh, DO [address] [place] [address] 09/08/2025 10:00 AM EDT Office Visit [facility] [address] [place] [address] Major Gallardo DO [address] [place] [address] Scheduled Referrals Name Type Priority Associated Diagnoses Order Schedule Ambulatory referral to Orthopaedic Surgery Outpatient Referral Routine Prosthetic joint loosening, initial encounter Expected: 10/07/2024 (Approximate), Expires: 04/09/2025 documented as of this encounter Visit Diagnoses Diagnosis Prosthetic joint loosening, initial encounter documented in this encounter Additional Health Concerns Assessment Noted Time PHQ-9 Depression Total Score: 17 024 1:17 PM EST documented as of this encounter Care Teams Food Service Technician Relationship Specialty Start Date End Date Terry Acevedo MD PCP - General Family Medicine 06/11/23 10/25/24 Marlo Lewis MD [address] [place] [place], [place] [address] PCP - General Family Medicine 10/26/24 documented as of this encounter
--- OUTSIDE RECORDS SUMMARY | 2024-11-01 11:00 | XMS_ITS | Encounter Summary ---
Author Organization [employer] Address [id number] [place] [address] Care Team Providers Care Dolphin Trainer Name Role Phone Unavailable Primary Care Provider Unavailabl e Encounter Details Date Type Department Care Team (Latest Contact Info) Description 10/24/2024 Travel Social History Tobacco Use Types Packs/Day [...]
--- OUTSIDE RECORDS SUMMARY | 2024-11-01 11:00 | XMS_ITS | Patient Health Record ---
Author Organization [facility] Address [address] [address], [place] [address] Care Team Providers Care Clicking Machine Operator Name Role Phone Terry Acevedo Primary Care Provider Cristino Haynes Unavailable [phone] Allergies Allergen (clinical drug ingredient) Drug/Non Drug Allergy documented on EMR Reaction Allergy Type Onset Date Status sulfamethoxazole / trimethoprim Bactrim Unknown Drug Allergy Active erythromycin Erythromycin Unknown Drug Allergy A ctive Reason For Referral No Information Medications Medication SIG (Take, Route, Frequency, Duration) Notes Start Date End Date Status Amitriptyline HCl 50 MG Tablet Oral; Duration: 90 Days Acti ve Rexulti 3 MG Tablet Oral; Duration: 30 Days Active Ambien Active Adipex-P Active Topamax Active PriLOSEC Active Mobic Active Valium Active [facility] Active oxyBUTYnin Chloride ER 15 MG Tablet Extended Release 24 Hour TAKE 1 TABLET BY MOUTH EVERY DAY DO NOT CRUSH, CHEW, OR SPLIT Oral; Duration: 30 Days Active Venlafaxine HCl ER 150 MG Capsule Extended Release 24 Hour TAKE 2 CAPSULES BY MOUTH IN THE MORNING Oral; Duration: 30 Days Active Social History Section Notes: Patient is a former smoker. Social alcohol use. Encounters Encounter [facility] [address] [address], [facility] [place] [address] 10/20/2024 Cristino Posada Posterior tibial tendon dysfunction [...] obtained prior to f/u Plan Of Treatment No Information Insurance Providers Payer Name Payer Address Payer Phone Subscriber Number Group Number Insured Name Patient Relationship to Insured Coverage Start Date Coverage End Date [facility] [address] [place] [address] [id number] Phuong Cruz Self - patient is the insured Medical (General) History Medical History History ICD Code Arthritis Stomach Ulcers Joint Replacement Depression/Anxiety Surgical History Surgery Date(Month/Year) Gallbladder Sinus Left/Right Knee Replacement
--- OUTSIDE RECORDS SUMMARY | 2024-11-01 11:00 | XMS_ITS | Encounter Summary ---
Author Organization [facility] Address [address] [place] [address] Care Team Providers Care Mover Name Role Phone Terry Acevedo MD Primary Care Provider [phone] Marlo Lewis MD Primary Care Provider [phone] Encounter Details Date Type Department Care Team (Late st Contact Info) Description 08/22/2024 Results Follow-Up [facility] [address] [place] [address] Terry Acevedo MD [address] [facility] [place] [address] ALL URIC ACID Social History Tobacco Use [...] Description 11/15/2024 10:00 AM EDT Office Visit [facility] [address] [place] [phone] Jr. Enrique Saleh, DO [address] [facility] [address] [place] [address] 09/08/2025 10:00 AM EDT Office Visit [facility] [address] [facility] [address] [place] [address] Major Gallardo, DO [address] [facility] [address] [place] [address] documented as of this encounter Visit Diagnoses Not on filedocumented in this encounter Additional Health Concerns Assessment Noted Time PHQ-9 Depression Total Score: 17 024 1:17 PM EST documented as of this encounter Care Teams Mover Relationship Specialty Start Date End Date Terry Acevedo MD PCP - General Family Medicine 06/11/23 10/25/24 Marlo Lewis MD [address], [place] [address] PCP - General Family Medicine 10/26/24 documented as of this encounter
--- OUTSIDE RECORDS SUMMARY | 2024-11-01 11:00 | XMS_ITS | Encounter Summary ---
Author Organization [facility] Address [address] [place] [address] Care Team Providers Care Geospatial Developer Name Role Phone Terry Acveedo MD Primary Care Provider [phone] Terry Acevedo MD Unavailable Marlo Lewis MD Primary Care Provider [phone] Encounter Details Date Type Department Care Team (Late st Contact Info) Description 09/07/2023 Clinisync Result Encounter [facility] External Department Unsolicited Paty Gallardo, DO [address] [place] [address] Social History Tobacco Use Types [...] Description 11/15/2024 10:00 AM EDT Office Visit [facility] [address] [place] [address] Jr. Enrique Saleh C, DO [address] [place] [address] 09/08/2025 10:00 AM EDT Office Visit [facility] [address] [place] [address] Paty Gallardo, [address] [place] [address] documented as of this encounter Procedures Procedure Name Priority Date/Time Associated Diagnosis Comments MM TOMOSYNTHESIS SCREENING BI 09/07/2023 1:04 PM EDT documented in this encounter Results * MM TOMOSYNTHESIS SCREENING BI (09/07/2023 1:04 PM EDT) Anatomical Region Laterality Modality Other 09/07/2023 1:04 PM EDT Narrative 09/07/2023 1:05 PM EDT The [address] [address] Mammography Report Signed Patient: PHUONG RANDHAWA MR#: [id number] : 1960 Acct:[id number] Age/Sex: 62 / F ADM Date: 09/07/23 Loc: MAMMO Attending Dr: PATY GALLARDO Ordering Physician: PATY GALLARDO Results: Date of Service: 09/07/23 Follow Up: Procedure(s): MM tomosynthesis screening BI Accession Number(s): [id number] cc: PATY GALLARDO ; Terry Acevedo M.D. Patient Name: PHUONG RANDHAWA MR#: [id number] : 1960 Exam Date: 09/07/2023 Ordering Doctor: DR PATY GALLARDO RADIOLOGY REPORT PROCEDURE: MM TOMOSYNTHESIS SCREENING BI COMPARISON: MG MAMM SCREEN 3D JAYCE CAD, 06/16/2022. INDICATIONS: Screening Calculator Name NCI Breast Cancer Risk Assessment Tool 5 Year Breast Cancer Risk Not Reported. Lifetime Breast Cancer Risk Not Reported. Personal Breast Cancer No Personal Ovarian Cancer No Treatments None Family Cancers None LOCATION: [facility] BREAST COMPOSITION: There are scattered areas [...] Signed By: 09/07/23 1305 DD/ 1304 TD/TT: Computer Software Engineer: Procedure Note Radiology, Radiologist, - 09/07/2023 [place] [address] Mammography Report Signed Patient: PHUONG RANDHAWA AMR#: [id number] : 1960Acct:[id number] Age/Sex: 62 / FADM Date: 09/07/23 Loc: MAMMO Attending Dr: PATY GALLARDO Ordering Physician: PATY GALLARDOResults: Date of Service: 09/07/23Follow Up: Procedure(s): MM tomosynthesis screening BI Accession Number(s): [id number] cc: PATY GALLARDO ; Terry Acevedo M.D. Patient Name: PHUONG RANDHAWA MR#: [id number] : 1960 Exam Date: 09/07/2023 Ordering Doctor: DR PATY GALLARDO RADIOLOGY REPORT PROCEDURE: MM TOMOSYNTHESIS SCREENING BI COMPARISON: MG MAMM SCREEN 3D JAYCE CAD, 06/16/2022. INDICATIONS: Screening Calculator Name NCI Breast Cancer Risk Assessment Tool 5 Year Breast Cancer Risk Not Reported. Lifetime Breast Cancer Risk Not Reported. Personal Breast Cancer No Personal Ovarian Cancer No Treatments None Family Cancers None LOCATION: [facility] BREAST COMPOSITION: There are scattered areas [...] M.D. Signed By:09/07/23 1305 DD/ 1304 TD/TT: Computer Software Engineer: Paty Gallardo DO [facility] Final Resu lt documented in this encounter Visit Diagnoses Not on filedocumented in this encounter Additional Health Concerns Assessment Noted Time PHQ-9 Depression Total Score: 17 024 1:17 PM EST documented as of this encounter Care Teams Geospatial Developer Relationship Specialty Start Date End Date Terry Acevedo MD PCP - General Family Medicine 06/11/23 10/25/24 Terry Acevedo MD [address] [place] [address] PCP - Gypsum Commercial 10/18/23 Marlo Lewis MD [address] [place], [place] [address] PCP - General Family Medicine 10/26/24 documented as of this encounter
--- OUTSIDE RECORDS SUMMARY | 2024-11-01 11:00 | XMS_ITS | Encounter Summary ---
Author Organization [facility] Address [address] [place] [address] Care Team Providers Care Civil Defense Director Name Role Phone Marlo Lewis MD Primary Care Provider [phone] Reason for Visit * Reason Onset Date Comments Results 10/27/2024 Encounter Details Date Type Department Care Team (Late st Contact Info) Description 10/27/2024 Telephone [facility] [address] [facility] [address] [place] [address] Mone Iraheta LPN [address] [place] [address] Results Social History Tobacco Use Types Packs/Day Years [...] encounter Miscellaneous Notes * Telephone Encounter - Elyssa Tate MA - 10/28/2024 9:59 AM EDT Discussing with [facility] * Telephone Encounter - Mone Iraheta LPN - 10/27/2024 1:05 PM EDT Pt calls to request results of recent Bone Density test. She reports she is unable to take fosamax,due to GI SE. Pt wanted [facility] to know. documented in this encounter Plan of Treatment Upcoming Encounters Date Type Department Care Team (Late st Contact Info) Description 11/15/2024 10:00 AM EDT Office Visit [facility] [address] [place] [address] Jr. Enrique Saleh, DO [address] [place] [address] 09/08/2025 10:00 AM EDT Office Visit [facility] [address] [place] [address] Major Gallardo DO [address] [place] [address] documented as of this encounter Visit Diagnoses Not on filedocumented in this encounter Additional Health Concerns Assessment Noted Time PHQ-9 Depression Total Score: 17 02/18/2 024 1:17 PM EST documented as of this encounter Care Teams Civil Defense Director Relationship Specialty Start Date End Date Marlo Lewis MD [address] [place] [address] PCP - General Family Medicine 10/26/24 documented as of this encounter
--- OUTSIDE RECORDS SUMMARY | 2024-11-01 11:01 | XMS_ITS | Clinical Summary ---
Author Organization [employer] Address [id number] [address] [place] [address] Care Team Providers Care Stem Assembler Name Role Phone Unavailable Primary Care Provider [...] as needed before bedtime. 12/14/19 22 Active HYDROcodone-ac etaminophen (NORCO) 5-325 mg per [...] MORNING 180 capsule 3 06/21/19 25 Active topiramate (TOPAMAX) 100 mg tablet Take 1 tablet (100 mg total) by mouth in the morning and 1 tablet (100 mg total) before bedtime. 180 tablet 3 08/09/19 25 Active amitriptyline (ELAVIL) 75 mg tabletIndicati ons:Severe episode of recurrent major depressive disorder, without psychotic features (CMS-HCC) Take 1 tablet (75 mg total) by mouth nightly. 90 tablet 3 10/06/19 25 Active diazePAM (VALIUM) 10 mg tabletIndicati ons:Panic attacks Take 1 tablet (10 mg total) by mouth 3 (three) times a day as needed for anxiety. 90 tablet 1 10/14/19 25 Active amitriptyline (ELAVIL) 50 mg tablet Take 1 tablet (50 mg total) by mouth nightly. Take with 75 mg tablet for total of 125 mg nightly. 90 tablet 3 10/19/19 25 Active brexpiprazole (REXULTI) 3 mg tabletIndicati ons:Severe episode of recurrent major depressive disorder, without psychotic features (CMS-HCC) Take 1 tablet (3 mg total) by mouth in the morning. 30 tablet 5 10/20/19 25 Active amitriptyline (ELAVIL) 50 mg tablet TAKE 1 TABLET BY MOUTH NIGHTLY * TAKE WITH 75 mg TABLETS * 90 tablet 3 10/05/19 24 025 Discontinued diazePAM (VALIUM) 10 mg tabletIndicati ons:Panic attacks TAKE 1 TABLET BY MOUTH THREE TIMES DAILY NEEDED FOR ANXIETY 90 tablet 1 12/28/19 24 025 Discontinued(Re order) amitriptyline (ELAVIL) 75 mg tabletIndicati ons:Severe episode of recurrent major depressive disorder, without psychotic features (CMS-HCC) TAKE 1 TABLET BY MOUTH NIGHTLY 90 tablet 3 12/30/19 24 025 Discontinued(Re order) brexpiprazole (REXULTI) 3 mg tabletIndicati ons:Severe episode of recurrent major depressive disorder, without psychotic features (CMS-HCC) Take 1 tablet (3 mg total) by mouth in the morning. 30 tablet 2 07/13/19 25 025 Discontinued Active Problems Problem Noted Date Diagnosed Date Severe episode of recurrent major depressive disorder, without psychotic features 12/31/2021 Generalized anxiety disorder 12/31/2021 Panic attacks 12/31/2021 Encounters * This document contains information received from the source organization and may not represent a complete record from that organization. Date Type Department Care Team Description 10/24/2024 Travel 10/03/2024 Travel 09/23/2024 2:00 PM EDT - 09/23/2024 11:59 PM EDT Hospital Encounter [facility] - Radiology [address] [place] [address] Chase Hogan MD Encounter for imaging to screen for metal prior to MRI Discharge Disposition: Home 09/23/2024 1:37 PM EDT - 09/23/2024 1:59 PM EDT Hospital Encounter [facility] - MRI Imaging [address] [place] [address] Enrique Saleh Jr., DO Tendonitis of ankle, right Discharge Disposition: Home 09/23/2024 Travel 09/19/2024 10:58 AM EDT - 09/19/2024 11:59 PM EDT Hospital Encounter [facility] - Nuclear MedIcine [address] [place] [address] Enrique Saleh Jr., DO Discharge Disposition: Home 09/19/2024 7:36 AM EDT - 09/19/2024 10:57 AM EDT Hospital Encounter [facility] - Nuclear MedIcine [address] [place] [address] Enrique Saleh Jr., DO Discharge Disposition: Home 09/19/2024 7:36 AM EDT - 09/19/2024 10:57 AM EDT Hospital Encounter [facility] - Nuclear MedIcine [address] [place] [address] Enrique Saleh Jr., DO Presence of right artificial knee joint; Acute pain of right knee Discharge Disposition: Home 09/19/2024 Travel 09/07/2024 Travel 08/17/2024 Travel 08/10/2024 Travel from Last 3 Months Family History [...] Vaccine (1 of 2) 2012 COVID-19 Vaccine (2024-2 6 season) 2024 12/03/2021, 09/07/2021, 12/15/2020, Additional history exists Influenza Vaccine 10/17/2024 12/27/2018 Tobacco Screening 08/17/2025 08/17/2024 Medical Devices Implanted Type Area Hr Business Partner Device Identifier Shelf Expiration Date Model / [...] Sung Mobley MD on 09/23/2024 2:14 PM us Chase [...] Last 3 Months Insurance [address] [place] [id number] [facility]
--- OUTSIDE RECORDS SUMMARY | 2024-11-01 11:01 | XMS_ITS | Encounter Summary ---
Author Organization [facility] Address [address] [facility] [place] [address] Care Team Providers Care Web Press Operator Assistant Name Role Phone Terry Acevedo MD Primary Care Provider [phone] Marlo Lewis MD Primary Care Provider [phone] Encounter Details Date Type Department Care Team (Late st Contact Info) Description 09/19/2024 External Result Encounter [facility] [address] [place] [address] Jr. Enrique Saleh, DO [address] [place] [address] Social History Tobacco Use Types Packs/Day Years [...] 11/15/2024 10:00 AM EDT Office Visit [facility] [address] [place] [address] Jr. Enrique Saleh, DO [address] [place] [address] 09/08/2025 10:00 AM EDT Office Visit [facility] [address] [place] [address] Major Gallardo, [address] [place] [address] documented as of this encounter Procedures Procedure Name Priority Date/Time Associated Diagnosis Comments NM BONE AND OR JOINT 3 PHASE [id number] 09/19/2024 1:51 PM EDT documented in this encounter Results * NM BONE AND OR JOINT 3 PHASE [id number] (09/19/2024 1:51 PM EDT) Anatomical Region Laterality Modality Radiographic Pratibha ging 09/19/2024 1:51 PM EDT Narrative 09/19/2024 1:50 PM EDT THIS EXAM WAS PERFORMED AT [facility] HISTORY: A 63-year-old female with a history [...] 09/19/2024 1:50 PM Procedure Note Radiology, Radiologist, MD - 09/19/2024 THIS EXAM WAS PERFORMED AT [facility] HISTORY: A 63-year-old female with a history [...] Vikram Mcfadden MD on 09/19/2024 1:50 PM [facility]. Enrique Ivory Stepanic DO IMG XR PROCEDURES Final Result documented in this encounter Visit Diagnoses Not on filedocumented in this encounter Additional Health Concerns Assessment Noted Time PHQ-9 Depression Total Score: 17 024 1:17 PM EST documented as of this encounter Care Teams Web Press Operator Assistant Relationship Specialty Start Date End Date Terry Acevedo MD PCP - General Family Medicine 06/11/23 10/25/24 Marlo Lewis MD [address] [place] [address] PCP - General Family Medicine 10/26/24 documented as of this encounter
--- OUTSIDE RECORDS SUMMARY | 2024-11-01 11:01 | XMS_ITS | Clinical Summary ---
Author Organization [facility] Address [address] [place] [address] Care Team Providers Care Machine Silk Screen Printer Name Role Phone Terry Acevedo MD Primary Care Provider [phone] Encounters Date Type Department Care Team Description [facility] [address] [place] [address] Parth Forrester MD Other (Apt cancellation due to OON insurance per AG) from Last 3 Months Social History Tobacco Use Types Packs/Day Years Used Date Smoking Tobacco: Never Assessed Comments Unknown Sex and Gender Information Value Date Recorded Sex Assigned at Not on file Legal Sex Female 11:59 AM EDT Gender Identity Not on file Sexual Orientation Not on file Plan of Treatment Health Maintenance Due Date Last Done Comments HEPATITIS C VIRUS SCREENING 1960 TETANUS 1960 HIV SCREENING DISCUSSION 1977 TDAP (ADULT) 1981 CERVICAL CANCER SCREENING DISCUSSION 10/09/1983 LIPID SCREENING 2002 MAMMOGRAM SCREENING DISCUSSION 2002 PNEUMOCOCCAL VACCINE SERIES (1 of 1 - PCV) 2012 ZOSTER (SHINGLES) VACCINE (1 of 2) 2012 COLORECTAL CANCER SCREENING DISCUSSION 09/01/2024 09/02/2023 COVID-19 VACCINE (2 - 2024-2 6 season) 2024 12/03/2021 INFLUENZA VACCINE (#1) 2024 12/27/2018 RSV VACCINE (1 - 1-dose 75+ series) 2037 HEP B VACCINE Aged Out No longer elig ible based on patient's age to complete this topic [facility] Care Teams Machine Silk Screen Printer Relationship Specialty Start Date End Date Terry Acevedo MD [address] [place] [phone] PCP - General Family Medicine 10/06/24
--- OUTSIDE RECORDS SUMMARY | 2024-11-01 11:01 | XMS_ITS | Encounter Summary ---
Author Organization [employer] Address [id number] [address] [place] [address] Care Team Providers Care National Guard Member Name Role Phone Unavailable Primary Care Provider Unavailabl e Encounter Details Date Type Department Care Team (Late st Contact Info) Description 01/24/2022 Telephone [facility] [address] [facility] [address] [place] [address] Keily Mayfield LPN Social History [...]
--- OUTSIDE RECORDS SUMMARY | 2024-11-01 11:01 | XMS_ITS | Clinical Summary ---
Author Organization [facility] Address [address] [place] [address] Care Team Providers Care Drapery And Upholstery Measurer Name Role Phone Marlo Lewis MD Primary Care Provider [phone] Allergies Active Allergy Reactions Criticality Noted Date Comments Bee Venom Anaphylaxis High 08/29/2022 Erythromycin Rash Low 06/18/2022 Sulfa Antibiotics Swelling,Rash Medium 06/18/2022 Sulfamethoxazole-Trimethoprim Rash Low 2022 Medications diazePAM (Valium) 10 MG tablet Take 10 mg by mouth 3 (three) times a day as needed. 3 Active venlafaxine XR (Effexor XR) 150 MG 24 hr capsule Take 150 mg by mouth in the morning and 150 mg before bedtime. Do not crush or chew. . Active amitriptyline (Elavil) 75 MG tablet Take 1 tablet by mouth at bedtime 3 Active EPINEPHrine (Epipen) 0.3 MG/0.3ML injection syringeIndications :History of allergic reaction INJECT 1 (ONE) pen NEEDED 1 each 3 4 Active sucralfate (Carafate) 1 g tabletIndications: Gastroesophageal reflux disease without esophagitis Take 1 tablet (1 g) by mouth in the morning and 1 tablet (1 g) at noon and 1 tablet (1 g) in the evening and 1 tablet (1 g) before bedtime. Take before meals. 120 tablet 5 4 Active Hibiclens 4 % solution APPLY TO THE AFFECTED AREA(S) topically for a 1 time dose the morning OF surgery 4 Active omeprazole (PriLOSEC) [address] capsuleIndications :Gastroesophageal reflux disease without esophagitis TAKE 1 CAPSULE BY MOUTH TWICE DAILY 60 capsule 5 4 Active cyclobenzaprine (Flexeril) 10 MG tabletIndications: Lumbar spondylosis Take 1 tablet (10 mg) by mouth 3 (three) times a day as needed for muscle spasms 60 tablet 2 5 Active meloxicam (Mobic) 15 MG tabletIndications: Bilateral primary osteoarthritis of knee TAKE 1 TABLET BY MOUTH ONCE DAILY 90 tablet 3 5 Active zolpidem (Ambien) 10 MG tabletIndications: Insomnia, unspecified Take 1 tablet (10 mg) by mouth at bedtime 30 tablet 2 5 Active topiramate (Topamax) 100 MG tablet Take 100 mg by mouth in the morning and 100 mg in the evening. 5 Active amitriptyline (Elavil) 50 MG tablet TAKE 1 TABLET BY MOUTH NIGHTLY take with 75 MG tablet 5 Active Rexulti 3 MG tablet Take 1 tablet by mouth in the morning. 5 Active phentermine (Adipex-P) 37.5 MG tabletIndications: Class 2 severe obesity due to excess calories with serious comorbidity and body mass index (BMI) of 37.0 to 37.9 in adult ([facility]) Take 1 tablet (37.5 mg) by mouth in the morning. Take before meals. 30 tablet 5 Active oxybutynin XL (Ditropan-XL) 15 MG 24 hr tabletIndications: Overflow incontinence of urine TAKE 1 TABLET BY MOUTH EVERY DAY; DO NOT CRUSH, CHEW, OR SPLIT 30 tablet 5 5 Active Active Problems Problem Noted Date Diagnosed [...] Encounters Date Type Department Care Team Description 10/27/2024 Telephone [facility] [address] [place] [address] Mone Iraheta LPN Results 10/07/2024 Telephone [facility] [address] [place] [address] Jr. Enrique Saleh, referral 10/04/2024 10:05 AM EDT Ancillary Procedure [facility] [address] [place] [address] 10/04/2024 9:30 AM EDT Office Visit [facility] [place] [address] Jr. Enrique Saleh DO Acute pain of right knee; History of right knee joint replacement; Prosthetic joint loosening, initial encounter; Tendonitis of ankle, right; Right ankle pain, unspecified chronicity 10/04/2024 Bamboo flowsheet [facility] [address] [place] [address] Jr. Enrique Saleh, 10/04/2024 Travel 09/28/2024 Refill [facility] [address] [place] [phone] Terry Mclaughlin MD Overflow incontinence of urine 09/23/2024 Telephone [facility] [address] [phone] Jr. Enrique Saleh, unable to complete mri 09/22/2024 11:15 AM EDT [facility] [address] [place] [phone] Terry Mclaughlin MD Lumbar spondylosis (Primary Dx); Primary osteoarthritis of right knee; Postoperative pain of right knee; Class 2 severe obesity due to excess calories with serious comorbidity and body mass index (BMI) of 37.0 to 37.9 in adult ([facility]) 09/22/2024 Bamboo flowsheet [facility] [address] [place] [place] [address] Terry Mclaughlin MD 09/19/2024 External Result Encounter [facility] [place] [address] Jr. Enrique Saleh, 09/06/2024 10:15 AM EDT Office Visit [facility] [place] [address] Jr. Enrique Saleh, Right ankle pain, unspecified chronicity; Tendonitis of ankle, right; History of right knee joint replacement; Acute pain of right knee 09/06/2024 Travel 09/05/2024 1:30 PM EDT Office Visit [facility] [address] [place] [address] Paty Guadarrama DO Encounter for gynecological examination without abnormal finding (Primary Dx); Encounter for Papanicolaou smear of cervix; Breast cancer screening by mammogram; Osteopenia, unspecified location; Screening for osteoporosis; Asymptomatic menopausal state 09/05/2024 Travel 08/22/2024 9:30 AM EDT Office Visit [facility] [address] [place] [address] Terry Mclaughlin MD Lumbar spondylosis (Primary Dx); Primary osteoarthritis of right knee; Acute right ankle pain; Primary insomnia; Seasonal allergic rhinitis due to pollen; Class 2 severe obesity due to excess calories with serious comorbidity and body mass index (BMI) of 37.0 to 37.9 in adult ([facility]) 08/22/2024 Results Follow-Up [facility] [address] [place] [phone] Terry Mclaughlin MD XR ankle 2 views right 08/22/2024 Results Follow-Up [facility] [address] [place] [address] Terry Mclaughlin MD ALL URIC ACID 08/22/2024 Clinisync Result Encounter [facility] External Department Unsolicited Terry Mclaughlin MD 08/22/2024 Clinisync Result Encounter [facility] External Department Unsolicited Terry Mclaughlin MD 08/22/2024 [facility]amboo [facility] [address] [place] [address] Terry Mclaughlin MD 08/11/2024 Telephone [facility] [address] [place] [address] Terry Mclaughlin MD Med Refill 08/04/2024 Telephone [facility] [address] [place] [address] Terry Mclaughlin MD from Last 3 Months [...] 11/15/2024 10:00 AM EDT Office Visit [facility] [place] [phone] Stepanic, Jr. Enrique C, DO [address] [place] [address] 09/08/2025 10:00 AM EDT [facility] [address] [place] [address] Paty Guadarrama, DO [address] [place] [address] Health Maintenance Due Date Last Done Comments CT Colonography 1960 Colonoscopy 1960 FIT 1960 FOBT 1960 Sigmoidoscopy 1960 Mammogram 09/06/2024 09/07/2023, 06/16/2022 Influenza Vaccine (#1) 2024 12/27/2018 Pap Smear 08/31/2026 09/01/2023, 03/03/2023, 08/16 Colorectal Cancer Screening 09/01/2026 FIT-DNA 09/01/2026 09/02/2023 Cervical Cancer Screening 09/05/2029 HPV/Cotest 09/05/2029 09/05/2024, 08/29/2022 Procedures Procedure Name Priority Date/Time Associated Diagnosis Comments XR KNEE 1-2 VIEWS RIGHT Routine 10/04/2024 10:02 AM EDT Acute pain of right knee NM BONE AND OR JOINT 3 PHASE [id number] 09/19/2024 1:51 PM EDT IGP, APT HPV,RFX [...] Recently Relevant to Health Maintenance Results * XR knee 1 or 2 views right (10/04/2024 10:02 AM EDT) Anatomical Region Laterality Modality Lower Extremities, Knee Right Radiogra phic Imaging Narrative 10/04/2024 10:12 AM EDT Imaging Result: AP and lateral of right knee showed surgical position and alignment of prosthetic components without gross evidence of loosening or wear to the femoral, tibial, or patellar components. The alignment appeared to be anatomic. There was no evidence of accelerated or asymmetric wear to the patellar button or tibial tray. There was no evidence of fracture and/or dislocation. Impression: Unremarkable right total knee arthroplasty. Jr. Enrique Saleh DO IMG XR PROCEDURES Final Result * NM BONE AND OR JOINT 3 PHASE [id number] (09/19/2024 1:51 PM EDT) Anatomical Region Laterality Modality Radiographic Pratibha ging 09/19/2024 1:51 PM EDT Narrative 09/19/2024 1:50 PM EDT THIS EXAM WAS PERFORMED AT [facility] HISTORY: A 63-year-old female with a history [...] EXAM WAS PERFORMED AT [facility] HISTORY: A 63-year-old female with a history [...] Comment:Z12.4 Performed By: Comment [facility] Comment:Al Schwartz, Type Casting Machine Operator ([facility]) Cyto Comments . [facility] Note: [...] - 09/07/2024 1:07 PM EDT Performed at: 01 - [facility] [id number] Retail Product Advisor: Lianna Carrera MD, Phone: [phone] Performed at: 02 - [facility] [id number] Retail Product Advisor: Lianna Carrera MD, Phone: [phone] Specimen Comment: No. of containers..01 ThinPrep Vial Paty Guadarrama DO LAB BLOOD ORDERABLES Final R esult [facility] * XR ankle 2 views right (08/22/2024 12:06 PM EDT) Anatomical Region Laterality Modality Lower Extremities, Ankle Right Radiogr aphic Imaging 08/22/2024 12:0 6 PM EDT Narrative 08/22/2024 12:09 [place] [address] XRay Report Signed Patient: PHUONG CRUZ MR#: [id number] : 1960 Acct:[id number] Age/Sex: 63 / F ADM Date: 08/22/24 Loc: LAB Attending Dr: Terry Mclaughlin M.D. Ordering Physician: Terry Mclaughlin M.D. Date of Service: 08/22/24 Procedure(s): XR ankle RT 2V Accession Number(s): [id number] cc: Terry Mclaughlin M.D. [facility] [place] [address] Patient Name: PHUONG CRUZ MRN: [id number] date: 1960 Sex: F Assigned Patient Location: LAB Current Patient Location: LAB Accession/Order Number: [id number] Exam Date: 08/22/2024 12:04 Report Date: 08/22/2024 [...] Robledo M.D. 08/22/2024 12:06 PM Dictation Location: [place] [address] Electronically authenticated by: [id number] Y Date: 08/22/2024 12:06 Dictated By: Adriana Robledo M.D. Signed By: 08/22/24 1209 DD/ 1206 TD/TT: Telephone Sterilizer: Procedure Note Radiology, Radiologist, - 08/22/2024 [place] [address] XRay Report Signed Patient: PHUONG CRUZ AMR#: [id number] : 1960Acct:[id number] Age/Sex: 63 / FADM Date: 08/22/24 Loc: LAB Attending Dr: Terry Mclaughlin M.D. Ordering Physician: Terry Mclauhglin M.D. Date of Service: 08/22/24 Procedure(s): XR ankle RT 2V Accession Number(s): [id number] cc: Terry Mclaughlin M.D. [facility] [place] [address] Patient Name: PHUONG CRUZ MRN: [id number] date: 1960 Sex: F Assigned Patient Location: LAB Current Patient Location: LAB Accession/Order Number: [id number] Exam Date: 08/22/2024 12:04 Report Date: 08/22/2024 [...] Robledo M.D. 08/22/2024 12:06 PM Dictation Location: [place] [address] Electronically authenticated by: [id number] Y Date: 2:06 Dictated By: Adriana Robledo M.D. Signed By:08/22/24 1209 DD/ 1206 TD/TT: Telephone Sterilizer: us Terry Mclaughlin MD IMG XR PROCEDURES Final Result * ALL URIC ACID (08/22/2024 11:05 AM EDT) URIC ACID 5.7 2.6 - 6.0 mg/dL [facility] 08/22/2024 11:0 5 AM EDT 08/22/2024 11:10 AM EDT Narrative [facility] - 08/22/2024 11:41 AM EDT us Terry Mclaughlin MD [facility] Final Result [facility] * MM TOMOSYNTHESIS SCREENING BI (09/07/2023 1:04 PM EDT) Anatomical Region Laterality Modality Other 09/07/2023 1:04 PM EDT Narrative 09/07/2023 1:05 [place] [address] Mammography Report Signed Patient: PHUONG CRUZ MR#: [id number] : 1960 Acct:[id number] Age/Sex: 62 / F ADM Date: 09/07/23 Loc: MAMMO Attending Dr: PATY GUADARRAMA Ordering Physician: PATY GUADARRAMA Results: Date of Service: 09/07/23 Follow Up: Procedure(s): MM tomosynthesis screening BI Accession Number(s): [id number] cc: PATY GUADARRAMA ; Terry Mclaughlin M.D. Patient Name: PHUONG CRUZ MR#: [id number] : 1960 Exam Date: 09/07/2023 Ordering Doctor: DR PATY GUADARRAMA RADIOLOGY REPORT PROCEDURE: MM TOMOSYNTHESIS SCREENING BI COMPARISON: MG MAMM SCREEN 3D JAYCE CAD, 06/16/2022. INDICATIONS: Screening Calculator Name NCI Breast Cancer Risk Assessment Tool 5 Year Breast Cancer Risk Not Reported. Lifetime Breast Cancer Risk Not Reported. Personal Breast Cancer No Personal Ovarian Cancer No Treatments None Family Cancers None LOCATION: [facility] BREAST COMPOSITION: There are scattered [...] Signed By: 09/07/23 1305 DD/ 1304 TD/TT: Telephone Sterilizer: Procedure Note Radiology, Radiologist, MD - 09/07/2023 [place] [address] Mammography Report Signed Patient: PHUONG CRUZ AMR#: [id number] : 1960Acct:[id number] Age/Sex: 62 / FADM Date: 09/07/23 Loc: MAMMO Attending Dr: PATY GUADARRAMA Ordering Physician: PATY GUADARRAMAResults: Date of Service: 09/07/23Follow Up: Procedure(s): MM tomosynthesis screening BI Accession Number(s): [id number] cc: PATY GUADARRAMA Marc M.D. Patient Name: PHUONG CRUZ MR#: [id number] : 1960 Exam Date: 09/07/2023 Ordering Doctor: DR PATY GUADARRAMA RADIOLOGY REPORT PROCEDURE: MM TOMOSYNTHESIS SCREENING BI COMPARISON: MG MAMM SCREEN 3D JAYCE CAD, 06/16/2022. INDICATIONS: Screening Calculator Name NCI Breast Cancer Risk Assessment Tool 5 Year Breast Cancer Risk Not Reported. Lifetime Breast Cancer Risk Not Reported. Personal Breast Cancer No Personal Ovarian Cancer No Treatments None Family Cancers None LOCATION: [facility] BREAST COMPOSITION: There are scattered [...] M.D. Signed By:09/07/23 1305 DD/ 1304 TD/TT: Telephone Sterilizer: Paty Guadarrama DO [facility] IMAGING Final Resu lt * Cologuard?? colon cancer screening (09/02/2023 11:15 AM EDT) NONINV COLON CA DNA+OCC BLD SCRN STL-IMP Negative Negative 09/12/2023 5:38 PM EDT [employer] (CLIA #:[id number]) Comment: NEGATIVE TEST RESULT. A negative Cologuard [...] screened with both Cologuard and colonoscopy. (Sena Chahal al, N Engl J Med 2014;370(14):8317-3604) The normal value (reference range) for this assay is negative. COLOGUARD RE-SCREENING RECOMMENDATION: Periodic colorectal cancer screening is an important part of preventive healthcare for asymptomatic individuals at average risk for colorectal cancer. Following a negative Cologuard result, the [place] Cancer Society and U.S. Multi-Society Task Force screening guidelines recommend a Cologuard re-screening interval of 3 years. References: [place] [employer] Guideline for Colorectal Cancer Screening: https://www.cancer.org/cancer/ozvnk-tehjqm-izewao/sdusryfxd-mwspubnwe-mitrxmd/ac s-rec ommendations.html.; Ren DK, Naeem HANCOCK, Sai GALVAN, Colorectal Cancer Screening: Recommendations for Physicians and Patients from the U.S. Multi-Society Task Force on Colorectal Cancer Screening , Am J Gastroenterology 2017; 112:8139-7819. TEST DESCRIPTION: Composite algorithmic analysis of stool [...] screened with both Cologuard and colonoscopy. (Sena Chahal al, N Engl J Med 2014;370(14):2801-1529.) Cologuard may produce a false negative or false positive result (no colorectal cancer or precancerous polyp present at colonoscopy follow up). A negative Cologuard test result does not guarantee the absence of CRC or advanced adenoma (pre-cancer). The current Cologuard screening interval is every 3 years. ([place] [employer] Society and U.S. Multi-Society Task Force). Cologuard performance data in a 10,000 patient pivotal study using colonoscopy as the reference method can be accessed at the following location: www.Firebase/results. Additional description of the Cologuard test process, warnings and precautions can be found at www.colFunderbeamrd.com. Stool specimen (specimen) 09/02/2023 11:15 AM EDT 09/04/2023 12:11 PM EDT Terry Mclaughlin MD LAB MOLECULAR DIAGNOSTICS ORDERA BLES Final Result [employer] (CLIA #:[id number]) [place] [address], * (ABNORMAL) THINPREP TIS PAP AND HPV MRNA E6/E7 WITH REFLEX TO HPV 16,18/45 (09/01/2023 12:00 AM EDT) CLINICAL INFORMATION [facility] Comment:None given LMP [facility] Comment:2006 PREV. PAP [facility] Comment:LGSIL, HPV+ PREV. BX [facility] Comment:None given SOURCE [facility] Comment:None given STATEMENT OF ADEQUACY [facility] Comment: Satisfactory for evaluation. Endocervical/transformation zone component present. GENERAL CATEGORIZATION (A) [facility] Comment:Cytology Results: Ep ithelial Cell Abnormality INTERPRETATION/RESUL T (A) [facility] Comment:Low Grade Squamous I ntraepithelial Lesion (LSIL) COMMENT [facility] Comment: This Pap test has been evaluated with computer assisted technology. HEADHUNTER [facility] Comment: LLT, CT(ASCP) CT screening location: [facility] [place], [address] [place] [address], [place] [address]. PATHOLOGIST [facility] Comment: Justice Keller MD, PhD, M.B.A. Board Certified in Anatomic and Clinical Pathology Board Certified in Cytopathology (electronic signature) For questions regarding this report call Anatomic Pathology at [phone] (ALWAYS MESSAGE) [facility] Comment: EXPLANATORY NOTE: The [...] Detected (A) Not Detected [facility] Comment: Methodology: Buffet Server-Mediated Amplification This assay detects E6/E7 viral messenger RNA (mRNA) from 14 high-risk HPV types (16,18,31,33,35,39,45,51,52,56,58,59,66,68). Cervical sources are required for HPV testing. If a vaginal source from a patient who has had a total hysterectomy with removal of cervix was submitted, please contact the testing laboratory for alternative testing options. For additional information, please refer to http://education.Manicube/faq/ZYI228z7 (This link if provided for information/ educational purposes only.) Swab (Endocervix) 09/01/2023 024 4:35 AM EDT Narrative Resulting Agency Comment Performing Organization Information Site ID: [id number] Name: [email or web address] Address: [address] [place] [address] Director: Rikki Astorga MD Site ID: [id number] Name: [facility] Address: [address] [place] [address] [place] [address] Director: Justice Keller MD,PHD,RL Paty Guadarrama DO LAB CYTOLOGY ORDERABLES Binta garry Result [facility] from Last 3 Months or Most Recently Relevant to Health Maintenance Insurance [facility] Care Teams Drapery And Upholstery Measurer Relationship Specialty Start Date End Date Marlo Lewis MD [address] [facility] [place] [address] PCP - General Family Medicine 10/26/24
--- OUTSIDE RECORDS SUMMARY | 2024-11-01 11:01 | XMS_ITS | Encounter Summary ---
Author Organization [facility] Address [address] [place] [address] Care Team Providers Care Policy Manager Name Role Phone Terry Acevedo MD Primary Care Provider [phone] Marlo Lewis MD Primary Care Provider [phone] Encounter Details Date Type Department Care Team (Late st Contact Info) Description 08/22/2024 Results Follow-Up [facility] [address] [facility] [address] Terry Acevedo MD [address] [facility] [place] [address] XR ankle 2 views right Social History [...] 11/15/2024 10:00 AM EDT [facility] [address] [place] [phone] Jr. Enrique Saleh, DO [address] [place] [address] 09/08/2025 10:00 AM EDT Office Visit [facility] [address] [place] [phone] Major Gallardo, DO [address] [place] [address] documented as of this encounter Visit Diagnoses Not on filedocumented in this encounter Additional Health Concerns Assessment Noted Time PHQ-9 Depression Total Score: 17 024 1:17 PM EST documented as of this encounter Care Teams Policy Manager Relationship Specialty Start Date End Date Terry Acevedo MD PCP - General Family Medicine 06/11/23 10/25/24 Marlo Lewis MD [address] [place] [address] PCP - General Family Medicine 10/26/24 documented as of this encounter
--- OUTSIDE RECORDS SUMMARY | 2024-11-01 11:18 | XMS_ITS | CCD ---
Author Organization [facility] Inform ion Partnership [facility] Care Team Providers Care Forensic Psychiatrist Name Role Phone ARNOLDO, DR TERRY Hines [...] Admitting UnavailTerry Leung MD Primary Care Provider [phone] Terry Mclaughlin MD Primary Care Provider [phone] Terry Mclaughlin MD Unavailable Luciano Reyes MD Attending Provider Terry Mclaughlin MD Primary Care Provider [phone] Luciano Reyes Attending Unavailable Terry Mclaughlin Primary Care Unavailable Luciano Reyes Admitting Unavailable Luciano Reyes Attending Unavailable Terry Mclaughlin Primary Care Unavailable Luciano Reyes Admitting Unavailable STEPANIC, ., SONJA Ivory Attending Unavaila ble STEPANIC, JR., SONJA Ivory Attending Unavaila TERRY Davies Attending Unavailable MAJOR GALLARDO Attending Unavailable STEPANIC, JR., SONJA Ivory Attending Unavaila TERRY Davies Attending Unavailable STEPANIC, JR., SONJA Ivory Attending Unavaila ble STEPANIC, JR., SONJA Ivory Referring Unavaila ble ZABRINA SCHMIDT Attending Unavailable STEPANIC, JR., SONJA Ivory Referring Unavaila ble KENY BERNAL Attending Unavailable KENY BERNAL Referring Unavailable ZABRINA SCHMIDT Attending Unavailable STEPANIC, JR., SONJA Ivory Referring Unavaila ble PERLA, KENY Guevara Attending Unavailable UNA MAYNARD Attending Unavailable STEPANIC, JR., SONJA Ivory Referring Unavaila ble UNA MAYNARD Attending Unavailable STEPANIC, JR., SONJA Ivory Referring Unavaila ble STEPANIC, JR., SONJA Ivory Attending Unavaila TERRY Davies Attending Unavailable STEPANIC, JR., SONJA Ivory Attending Unavaila UNA Hodge Attending Unavailable STEPANIC, JR., SONJA Ivory Referring Unavaila ble BRUNA LEÓN Attending Unavailable STEPANIC, JR., SONJA Ivory Referring Unavaila ble TABATHA ONOFRE Attending Unavailable STEPJR ESTEFANI., SONJA Ivory Referring Unavaila ble BRUNA LEÓN Attending Unavailable STEPANIC, JR., SONJA Ivory Referring Unavaila ble UNA MAYNARD Attending Unavailable STEPANIC, JR., SONJA Ivory Referring Unavaila ble TABATHA ONOFRE Attending Unavailable STEPESTEFANI JR., SONJA Ivory Referring Unavaila ble STEPANIC, JR., SONJA Ivory Attending Unavaila ble STEPANIC, JR., SONJA Ivory Referring Unavaila ble STEPANIC, JR., SONJA Ivory Attending Unavaila ble STEPANIC, JR., SONJA Ivory Attending Unavaila TERRY Davies Attending Unavailable JUAN MIGUEL ANDREW Attending Unavailable JUAN MIGUEL ANDREW Attending Unavailable Chase Hogan Attending Unavailable Chase Hogan Referring Unavailable STEPSONJA JARA JR Attending Unavailabl e STEPANIC , SONJA Ivory Referring Unavailabl e STEPANIC JR, SONJA Ivory Attending Unavailabl e STEPANIC , SONJA Ivory Referring Unavailabl e STEPANIC JR, SONJA Ivory Attending Unavailabl e STEPANIC , SONJA Ivory Referring Unavailabl JUAN MIGUEL Orona Attending Unavailable HENRIETTA HAMILTON Attending Unavailable HENRIETTA HAMILTON Referring Unavailable LORRIE, JUAN MIGUEL Attending Unavailable LORRIE, JUAN MIGUEL Attending Unavailable LORRIE, JUAN MIGUEL Attending Unavailable LORRIE, JUAN MIGUEL Attending Unavailable ALFONSOHENRIETTA TEMPLETON Attending Unavailable LORRIE, JUAN MIGUEL Attending Unavailable LORRIE, JUAN MIGUEL Attending Unavailable ALFONSOHENRIETTA TEMPLETON Attending Unavailable LORRIE, JUAN MIGUEL Attending Unavailable LORRIE, JUAN MIGUEL Attending Unavailable LORRIE, JUAN MIGUEL Attending Unavailable ALFONSO, HENRIETTA Guevara Attending Unavailable LARON WATTS Referring Unavailable LORRIE, JUAN MIGUEL Attending Unavailable LORRIE, JUAN MIGUEL Attending Unavailable ALFONSOHENRIETTA TEMPLETON Attending Unavailable LORRIE, JUAN MIGUEL Attending Unavailable LORRIE, JUAN MIGUEL Attending Unavailable LORRIE, JUAN MIGUEL Attending Unavailable LORRIE, JUAN MIGUEL Attending Unavailable ALFONSO, HENRIETTA Guevara Attending Unavailable Allergies Allergy Classification Reported Allergen(s) Allergy Type Date of Onset Reaction(s) Facility (1 source) bee venom Drug allergy (disorder) 04-03-19 14 [facility] Repository (7 sources) Erythromycin Drug Allergy 04-03-19 14 rash [facility] Repository (1 source) Sulfonamides (Antibiotic) Drug allergy (disorder) 04-03-19 14 [facility] (20 sources) Erythromycin; Translations: [ERYTHROMYCIN] Drug Allergy 06-19-19 Rash [facility] Healthcare (20 sources) Honey bee venom Allergy to substance 08-30-19 Anaphylaxis [facility] (20 sources) Sulfamethoxazole / Trimethoprim Drug Allergy 07-17-19 23 Rash [facility] (20 sources) Sulfonamides (Antibiotic) Drug Allergy 06-19-19 23 Swelling, Rash [facility] Healthcare (7 sources) Sulfamethoxazole; Translations: [sulfamethoxazole] Drug Allergy 04-13-19 [facility] (9 sources) Sulfonamides (Antibiotic); Translations: [Sulfa (Sulfonamide Antibiotics)] Allergy to substance 06-19-19 [facility] (7 sources) Trimethoprim; Translations: [trimethoprim] Drug Allergy 04-13-19 [facility] (7 sources) venom-honey bee; Translations: [venom-honey bee] Allergy to substance 04-13-19 [facility] (1 source) Erythromycin Drug Allergy 05-24-19 [facility] Repository Medications Current Medications Medication Drug [...] times a day as needed. 06/12/2022 Active [id number] 0.3 ml EPINEPHrine 1 mg/ml auto-injector (20 [...] tablet (20 sources) Cholinergic Muscarinic Antagonist Start: 09-28-2024 take 1 tablet by mouth once daily oxybutynin XL (Ditropan-XL) 15 MG 24 hr tablet Indications: Overflow incontinence of urine TAKE 1 TABLET BY MOUTH EVERY DAY; DO NOT CRUSH, CHEW, OR SPLIT 30 tablet 5 09/28/2024 Active Start: 02-24-2024 take 1 tablet by bijan th once daily oxybutynin XL (Ditropan-XL) 15 MG [...] (Reorder) phentermine hydrochloride 37.5 mg oral tablet (17 sources) Sympathomimetic Amine Anorectic Start: 08-22-2024 End: 10-22-2024 take 37-37.9 tablets by mouth before mealtime phentermine (Adipex-P) 37.5 MG tablet Indications: Class 2 severe obesity due to excess calories with serious comorbidity and body mass index (BMI) of 37.0 to 37.9 in adult ([facility]) Take 1 tablet (37.5 mg) [...] 2024 1:00am take 1 capsule by mo uth every twenty-four hours in the morning venlafaxine [...] daily as needed for pain HYDROcodone-acetam inophen ([facility]) 5-325 MG tablet Indications: Lumbar spondylosis Take 1 tablet by mouth 4 (four) times a day as needed for moderate pain or severe pain for up to 15 days 60 tablet 08/22/2024 09/06/2024 Start: 05-31-2024 End: 06-15-2024 take 1 tablet by mouth four times daily as needed for pain HYDROcodone-acetaminophen ([facility]) 5-325 MG tablet Indications: Lumbar spondylosis Take [...] times daily as needed for pain HYDROcodone-acetaminophen ([facility]) 5-325 MG tablet Indications: Lumbar spondylosis Take 1 tablet by mouth 4 (four) times a day as needed for moderate pain or severe pain for up to 15 days 60 tablet 02/24/2024 03/10/2024 Active Start: 02-08-2024 End: 02-15-2024 take 1 tablet by mouth four times daily as needed for pain HYDROcodone-acetaminophen ([facility]) 5-325 MG tablet Indications: Primary osteoarthritis of left knee Take 1 tablet by mouth 4 (four) times a day as needed for moderate pain or severe pain for up to 7 days 28 tablet 02/08/2024 02/15/2024 Active Start: 12-15-2023 End: 12-22-2023 take 1 tablet by mouth four times daily as needed for pain HYDROcodone-acetaminophen ([facility]) 5-325 MG tablet Indications: Primary osteoarthritis of left knee Take 1 tablet by mouth 4 (four) times a day as needed for moderate pain or severe pain for up to 7 days 28 tablet 12/15/2023 12/22/2023 Start: 10-28-2023 End: 11-04-2023 take 1 tablet by mouth four times daily as needed for pain HYDROcodone-acetaminophen ([facility]) 5-325 MG tablet Indications: Primary osteoarthritis of left knee Take 1 tablet by mouth 4 (four) times a day as needed for moderate pain or severe pain for up to 7 days 28 tablet 10/28/2023 11/04/2023 Active Start: 06-24-2022 take 1 tablet by bijan th four times daily as needed HYDROcodone-acetaminophen ([facility]) 5-325 MG tablet Take 1 tablet by [...] [Generalized anxiety disorder] Onset: 12-31-2021 08-29-2022 Chronic Complication of device; implant or graft (4 sources) Prosthetic joint loosening; Translations: [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, initial encounter] 10-05-2024 Episodic Disorders of lipid metabolism (20 sources) Hyperlipidemia; [...] [Presence of right artificial knee joint] Onset: 09-19-2024 Chronic Other connective tissue disease (4 sources) Neuralgia; Translations: [Neuralgia and neuritis, unspecified] 04-06-2024 Episodic Other connective tissue disease (2 sources) Myofascial pain; Translations: [Myalgia, other site] 06-20-2024 Episodic Other connective tissue disease (3 sources) Myalgia, other site; Translations: [Myalgia and myositis, unspecified] 06-20-2024 Episodic Other connective tissue disease (8 sources) Tendonitis of right ankle; Translations: [Other [...] 05-11-2024 04-13-2024 Chronic Other non-traumatic joint disorders (19 sources) Pain in unspecified knee; Translations: [Pain in joint, lower leg] Onset: 08-29-2022 08-29-2022 Episodic Other non-traumatic joint disorders (3 sources) Pain in right knee; Translations: [Pain in joint, lower leg] Onset: 09-19-2024 12-21-2023 Episodic Other non-traumatic joint disorders (17 sources) Acute ankle pain; Translations: [Pain in right ankle and joints of right foot] Onset: 08-22-2024 08-22-2024 Episodic Other non-traumatic joint disorders (4 sources) Ankle pain; Translations: [Pain in right [...] (BMI) of 36.0 to 36.9 in adult ([facility])] Onset: 02-18-2023 02-24-2024 Chronic Other screening for [...] current use of drug therapy; Translations: [Other fruit and vegetable classer (current) drug therapy] Onset: 11-19-2023 11-19-2023 Episodic [...] postoperative pain] Onset: 08-29-2022 09-09-2023 Episodic Other skin disorders (20 sources) Hyperhidrosis; [...] Name Value Interpretation Reference Range Facility XR Knee - right 1 or 2 Views on 10-04-2024 Imaging Result: AP and lateral of right [...] dislocation. Impression: Unremarkable right total knee arthroplasty. [facility] Radiology Study observation (narrative) [facility] XR SINUS 1 OR 2 VWSon 2024 XR SINUS 1 OR 2 VWS XR SINUS 1 OR 2 S Exam: Sinus 2 view. HISTORY: Pre-MRI screening for metal. IMPRESSION: 1. I see no evidence of a radiopaque foreign body. There is postoperative change involving the sinuses with metallic clips. This is a known finding. Finalized by Sung Mobley MD on 09/23/2024 2:14 PM Normal [facility] NM BONE SCAN THREE PHASEon 0 09-19-2024 [...] Mcfadden MD on 09/19/2024 1:50 PM Normal [facility] ALL URIC ACIDon 08-22-2024 Urate [Mass/Vol] 5.7 mg/dL 2.6 - 6.0 mg/dL [facility] XR Ankle - right 2 Viewson 0 08-22-[address] [address] XRay Report Signed Patient: PHUONG RANDHAWA MR#: [id number] : 1960 Acct:[id number] Age/Sex: 63 / F ADM Date: 08/22/24 Loc: LAB Attending Dr: Terry Mclaughlin M.D. Ordering Physician: Terry Mclaughlin M.D. Date of Service: 08/22/24 Procedure(s): XR ankle RT 2V Accession Number(s): [id number] cc: Terry Mclaughlin M.D. [place] [id number] Patient Name: PHUONG RANDHAWA MRN: [id number] date: 1960 Sex: F Assigned Patient Location: LAB Current Patient Location: LAB Accession/Order Number: [id number] Exam Date: 08/22/2024 12:04 Report Date: 08/22/2024 [...] Robledo M.D. 08/22/2024 12:06 PM Dictation Location: [place] [address] Electronically authenticated by: [id number] Y Date: 08/22/2024 12:06 Dictated By: Adriana Robledo M.D. Signed By: 08/22/24 1209 DD/ 1206 TD/TT: 3Rd Grade Reading Teacher: [facility] Radiology, Radiologist, - 08/22/2024 [place] [address] XRay Report Signed Patient: PHUONG RANDHAWA MR#: [id number] : 1960 Acct:[id number] Age/Sex: 63 / F ADM Date: 08/22/24 Loc: LAB Attending Dr: Terry Mclaughlin M.D. Ordering Physician: Terry Mclaughlin M.D. Date of Service: 08/22/24 Procedure(s): XR ankle RT 2V Accession Number(s): [id number] cc: Terry Mclaughlin M.D. The [place] [address] Patient Name: PHUONG RANDHAWA MRN: [facility]:[id number] date: 1960 Sex: F Assigned Patient Location: LAB Current Patient Location: LAB Accession/Order Number: [id number] Exam Date: 08/22/2024 12:04 Report Date: 08/22/2024 [...] Robledo M.D. 08/22/2024 12:06 PM Dictation Location: [place] [address] Electronically authenticated by: [id number] Y Date: 08/22/2024 12:06 Dictated By: Adriana Robledo M.D. Signed By: 08/22/24 1209 DD/ 1206 TD/TT: 3Rd Grade Reading Teacher: [facility] Radiology Study observation (narrative) [facility] XR Ankle - right 2 ViewsOrde red By: Radiologist Radiology on 08-22-2024 scrible Work Phone: CT KNEE RT WO CONTon [...] Sylvester MD on 02/22/2024 12:46 PM Normal [facility] XR Knee - right 3 Viewson Imaging [...] patella. Impression: Unremarkable right total knee arthroplasty. [facility] Radiology Study observation (narrative) [facility] ALL CBC WITH AUTO DIFFon BASOPHILS ABSOLUTE AUTO 0.1 [facility] Basophils/100 WBC (Bld) 0.8 % 0.2 - 2.0 % [facility] Eosinophils/100 WBC (Bld) 2.5 % 0.9 - 7.0 % [facility] Erythrocyte distribution width (RBC) [Ratio] 14.2 % 11.0 - 15.0 % [facility] Hematocrit (Bld) [Volume fraction] 40.3 % 36.0 - 48.0 % [facility] Hemoglobin (Bld) [Mass/Vol] 12.9 g/dL 12.0 - 16.0 g/dL [facility] IMMATURE GRANULOCYTES ABS AUTO 0.06 High [facility] Immature granulocytes/100 WBC (Bld) 0.9 % High 0.0 - 0.5 % [facility] Interpretation and review of laboratory results Abnormal [facility] LYMPHOCYTES ABSOLUTE AUTO 1.1 Low [facility] Lymphocytes/100 WBC (Bld) 17.7 % Low 20.5 - 60.0 % [facility] MCH (RBC) [Entitic mass] 28.4 pg 26.7 - 34.0 pg [facility] MCHC (RBC) [Mass/Vol] 32.0 g/dL 29.9 - 35.2 g/dL [facility] MCV (RBC) [Entitic vol] 88.6 fL 81.0 - 99.0 fL [facility] MONOCYTES ABSOLUTE AUTO 0.5 [facility] Monocytes/100 WBC (Bld) 7.7 % 1.7 - 12.0 % [facility] NEUTROPHILS ABSOLUTE AUTO 4.5 [facility] Neutrophils/100 WBC (Bld) 70.4 % 43.0 - 75.0 % [facility] Platelet mean volume (Bld) [Entitic vol] 10.1 fL 9.5 - 13.5 fL [facility] EO # 0.2 [facility] TB PLT 255 [facility] TB RBC 4.55 [facility] TB WBC 6.4 [facility] ALL CBC WITH AUTO DIFFon BASOPHILS ABSOLUTE AUTO 0.1 [facility] Basophils/100 WBC (Bld) 0.8 % 0.2 - 2.0 % [facility] Eosinophils/100 WBC (Bld) 3.0 % 0.9 - 7.0 % [facility] Erythrocyte distribution width (RBC) [Ratio] 14.1 % 11.0 - 15.0 % [facility] Hematocrit (Bld) [Volume fraction] 40.0 % 36.0 - 48.0 % [facility] Hemoglobin (Bld) [Mass/Vol] 12.4 g/dL 12.0 - 16.0 g/dL [facility] IMMATURE GRANULOCYTES ABS AUTO 0.05 High [facility] Immature granulocytes/100 WBC (Bld) 0.8 % High 0.0 - 0.5 % [facility] Interpretation and review of laboratory results Abnormal [facility] LYMPHOCYTES ABSOLUTE AUTO 1.4 [facility] Lymphocytes/100 WBC (Bld) 22.9 % 20.5 - 60.0 % [facility] MCH (RBC) [Entitic mass] 27.9 pg 26.7 - 34.0 pg [facility] MCHC (RBC) [Mass/Vol] 31.0 g/dL 29.9 - 35.2 g/dL [facility] MCV (RBC) [Entitic vol] 89.9 fL 81.0 - 99.0 fL [facility] MONOCYTES ABSOLUTE AUTO 0.4 [facility] Monocytes/100 WBC (Bld) 6.8 % 1.7 - 12.0 % [facility] NEUTROPHILS ABSOLUTE AUTO 3.9 [facility] Neutrophils/100 WBC (Bld) 65.7 % 43.0 - 75.0 % [facility] Platelet mean volume (Bld) [Entitic vol] 10.0 fL 9.5 - 13.5 fL [facility] are [facility] EO # 0.2 [facility] PLT 246 [facility] RBC 4.45 [facility] WBC 6.0 [facility] PAP ACOG PANEL 2: 30 to 65on 06-18-2022 . . Normal [facility] Comment on above: Result Comment: Perf ormed at: WB Performed By: #### [id number] #### [facility] [address] [place] [address] Dr. Laurita Hooker Age Gdln ACOG Testing 30-65 Normal [facility] Comment on above: Performed By: #### [id number] #### [facility] [address] [place] [address] [address] Laurita Hooker DIAGNOSIS: Comment Abnormal [facility] Comment on above: Result Comment: EPIT HELIAL CELL ABNORMALITY. LOW GRADE SQUAMOUS INTRAEPITHELIAL LESION (LSIL). Performed at: WB Performed By: #### [id number] #### [facility] [address] [place] [address] [address] Laurita Hooker Electronically signed by: Comment Normal [facility] Comment on above: Result Comment: Leeann Carrera MD, Pathologist Performed at: WB Performed By: #### [id number] #### [facility] [address] [place] [address] Dr. Laurita Hooker HPV Aptima Positive Abnormal Negative [facility] Comment on above: Result Comment: This nucleic acid amplification test detects fourteen high-risk HPV types (16,18,31,33,35,39,45,51,52,56,58,59,66,68) without differentiation. Performed at: =G Performed By: #### [id number] #### [facility] [address] [place] [address] Dr. Laurita Hooker HPV Genotype Reflex Comment Normal [facility] Comment on above: Result Comment: Crit eria not met, HPV Genotype not performed. Performed at: WB Performed By: #### [id number] #### [facility] [address] [place] [address] Dr. Laurita Hooker Methodology: Comment Normal [facility] Comment on above: Result Comment: This liquid based ThinPrep(R) pap test was screened with the use of an image guided system. Performed at: WB Performed By: #### [id number] #### [facility] [address] [place] [address] Dr. Laurita Hooker Note: Comment Normal [facility] Comment on above: Result Comment: The Pap smear is a screening test designed to aid in the detection of premalignant and malignant conditions of the uterine cervix. It is not a diagnostic procedure and should not be used as the sole means of detecting cervical cancer. Both false-positive and false-negative reports do occur. . Performed at: WB Performed By: #### [id number] #### [facility] [address] [place] [address] Dr. Laurita Hooker Pathologist Provided ICD10 Comment Normal [facility] Comment on above: Result Comment: [id number] Performed at: WB Performed By: #### [id number] #### [facility] [address] [place] [address] Dr. Laurita Hooker Performed by: Comment Normal [facility] Comment on above: Result Comment: Ashley Pena, University Manager (ASCP) Performed at: WB Performed By: #### [id number] #### [facility] [address] [place] [address] [address] Laurita Hooker Recommendation: Comment Abnormal [facility] Comment on above: Result Comment: Sugg est follow up as clinically appropriate. Performed at: WB Performed By: #### [id number] #### [facility] [address] [place] [address] [address] Laurita Hooker Specimen adequacy: Comment Normal [facility] Comment on above: Result Comment: Sati sfactory for evaluation. Endocervical and/or squamous metaplastic cells (endocervical component) are present. Performed at: WB Performed By: #### [id number] #### [facility] [address] [place] [address] [address] Laurita Hooker MG MAMM SCREEN 3D JAYCE CADon 06-16-2022 MG MAMM SCREEN 3D JAYCE CAD Patient: PHUONG RANDHAWA Exam Date: 06/16/2022 : 1960 Gender:F Ordering : DR BRAD CALERO . Admission #: [id number] Family : Order #: [id number] CLICK HERE TO VIEW EXAM RADIOLOGY REPORT [...] Treatments None Family Cancers None LOCATION: [facility] BREAST COMPOSITION: Scattered areas fibroglandular density. FINDINGS: [...] LUMP SHOULD BE BIOPSIED. Dictated by: Brad Fernandez M.D. on 06/16/2022 at 14:18 Approved by: Brad Fernandez M.D. on 06/16/2022 at 14:21 Normal [facility] XR DEXA BONE DENSITYon 06-16 XR DEXA [...] Moderate Fracture Risk Electronically authenticated by: BRAD FERNANDEZ Date: 2022-06-16 15:27 Normal [facility] PAP ACOG PANEL 2: 30 to 65on 03-19-2022 . . Normal [facility] Comment on above: Result Comment: Perf ormed at: WB Performed By: #### [id number] #### [facility] [address] [place] [address] Dr. Laurita Hooker Age Gdln ACOG Testing 30-65 Normal [facility] Comment on above: Performed By: #### [id number] #### [facility] [address] [place] [address] Dr. Laurita Hooker DIAGNOSIS: Comment Abnormal [facility] Comment on above: Result Comment: EPIT HELIAL CELL ABNORMALITY. LOW-GRADE SQUAMOUS INTRAEPITHELIAL LESION (LSIL); (ENCOMPASSING HUMAN PAPILLOMAVIRUS /MILD DYSPLASIA/CIN1). Performed at: WB Performed By: #### [id number] #### [facility] [address] [place] [address] Dr. Laurita Hooker Electronically signed by: Comment Normal [facility] Comment on above: Result Comment: Allie Nowak MD, Pathologist Performed at: WB Performed By: #### [id number] #### [facility] [address] [place] [address] Dr. Laurita Hooker HPV Aptima Positive Abnormal Negative [facility] Comment on above: Result Comment: This nucleic acid amplification test detects fourteen high-risk HPV types (16,18,31,33,35,39,45,51,52,56,58,59,66,68) without differentiation. Performed at: =G Performed By: #### [id number] #### [facility] [address] [place] [address] Dr. Laurita Hooker HPV Genotype Reflex Comment Normal [facility] Comment on above: Result Comment: Crit eria not met, HPV Genotype not performed. Performed at: WB Performed By: #### [id number] #### [facility] [address] [place] [address] Dr. Laurita Hooker Methodology: Comment Normal [facility] Comment on above: Result Comment: This liquid based ThinPrep(R) pap test was screened with the use of an image guided system. Performed at: WB Performed By: #### [id number] #### [facility] [address] [place] [address] Dr. Laurita Hooker Note: Comment Normal [facility] Comment on above: Result Comment: The Pap smear is a screening test designed to aid in the detection of premalignant and malignant conditions of the uterine cervix. It is not a diagnostic procedure and should not be used as the sole means of detecting cervical cancer. Both false-positive and false-negative reports do occur. . Performed at: WB Performed By: #### [id number] #### [facility] [address] [place] [address] Dr. Laurita Hooker Pathologist Provided ICD10 Comment Normal [facility] Comment on above: Result Comment: [id number] Performed at: WB Performed By: #### [id number] #### [facility] [address] [place] [address] Dr. Laurita Hooker Performed by: Comment Normal [facility] Comment on above: Result Comment: Kamran Krishnamurthy, University Manager (ASCP) Performed at: [facility] Performed By: #### [id number] #### [facility] [address] [address] [address] Laurita Hooker Recommendation: Comment Abnormal [facility] Comment on above: Result Comment: Sugg est follow up as clinically appropriate. Performed at: WB Performed By: #### [id number] #### [facility] [address] [place] [address] Dr. Laurita Hooker Specimen adequacy: Comment Normal [facility] Comment on above: Result Comment: Sati sfactory for evaluation. Endocervical and/or squamous metaplastic cells (endocervical component) are present. Performed at: WB Performed By: #### [id number] #### [facility] [address] [place] [address] Dr. Laurita Hooker PAP ACOG PANEL 2: 30 to 65on 09-17-2021 . . Normal [facility] Comment on above: Result Comment: Perf ormed at: WB Performed By: #### [id number] #### [facility] [address] [place] [address] Dr. Laurita Hooker Age Gdln ACOG Testing 30-65 Normal [facility] Comment on above: Performed By: #### [id number] #### [facility] [address] [place] [address] Dr. Laurita Hooker DIAGNOSIS: Comment Normal [facility] Comment on above: Result Comment: NEGA TIVE FOR INTRAEPITHELIAL LESION OR MALIGNANCY. Performed at: WB Performed By: #### [id number] #### [facility] [address] [place] [address] Dr. Laurita Hooker HPV Aptima Positive Abnormal Negative [facility] Comment on above: Result Comment: This nucleic acid amplification test detects fourteen high-risk HPV types (16,18,31,33,35,39,45,51,52,56,58,59,66,68) without differentiation. Performed at: =G Performed By: #### [id number] #### [facility] [address] [place] [address] Dr. Laurita Hooker HPV Genotype 16 Positive Abnormal Negative [facility] Comment on above: Result Comment: Perf ormed at: =G Performed By: #### [id number] #### [facility] [address] [place] [address] Dr. Laurita Hooker HPV Genotype 18,45 Negative Normal Negative [facility] Comment on above: Result Comment: Perf ormed at: =G Performed By: #### [id number] #### [facility] [address] [place] [address] Dr. Laurita Hooker Methodology: Comment Normal [facility] Comment on above: Result Comment: This liquid based ThinPrep(R) pap test was screened with the use of an image guided system. Performed at: WB Performed By: #### [id number] #### [facility] [address] [place] [address] Dr. Laurita Hooker Note: Comment Normal [facility] Comment on above: Result Comment: The Pap smear is a screening test designed to aid in the detection of premalignant and malignant conditions of the uterine cervix. It is not a diagnostic procedure and should not be used as the sole means of detecting cervical cancer. Both false-positive and false-negative reports do occur. . Performed at: WB Performed By: #### [id number] #### [facility] [address] [place] [address] Dr. Laurita Hooker Performed by: Comment Normal [facility] Comment on above: Result Comment: Mar Plunkett, University Manager (ASCP) Performed at: WB Performed By: #### [id number] #### [facility] [address] [place] [address] Dr. Laurita Hooker Specimen adequacy: Comment Normal [facility] Comment on above: Result Comment: Sati sfactory for evaluation. Endocervical and/or squamous metaplastic cells (endocervical component) are present. Performed at: WB Performed By: #### [id number] #### [facility] [address] [place] [address] Dr. Laurita Hooker HEPATITIS PANEL, ACUTEon HBsAg Screen Negative Normal Negative [facility] Comment on above: Performed By: #### H EPACUT #### [facility] [address] [place] [address] Dr. Laurita Hooker HCV AB <0.1 Normal 0.0-0.9 [facility] Comment on above: Performed By: #### H EPACUT #### [facility] [address] [address] [address] Laurita Hooker Hep A Ab, IgM Negative Normal Negative [facility] Comment on above: Performed By: #### H EPACUT #### [facility] [address] [address] [address] Laurita Hooker Hep B Core Ab, IgM Negative Normal Negative [facility] Comment on above: Performed By: #### H EPACUT #### [facility] [address] [address] [address] Laurita Hooker Interpretation: Comment Normal [facility] Comment on above: Result Comment: Nega tive Not infected with HCV, unless recent infection is suspected or other evidence exists to indicate HCV infection. Performed By: #### H EPACUT #### [facility] [address] [address] [address] Laurita Hooker Vital Signs Date Time Vital Sign Value Performing Clinician Facility 09-22-2024 11:30-0400 Body height 165.1 cm Terry Mclaughlin MD Work Phone: [facility] 09-22-2024 11:30-0400 Body mass index (BMI) [Ratio] 36.11 kg/m2 Terry Mclaughlin MD Work Phone: [facility] 09-22-2024 11:30-0400 Body temperature 96.01 [degF] Trery Mclaughlin MD Work Phone: [facility] 09-22-2024 11:30-0400 Body weight 98.43 kg Terry Mclaughlin MD Work Phone: [facility] 09-22-2024 11:30-0400 Diastolic blood pressure 78 mm[Hg] Terry Mclaughlin MD Work Phone: [facility] 09-22-2024 11:30-0400 Heart rate 105 /min Terry Mclaughlin MD Work Phone: [facility] 09-22-2024 11:30-0400 Respiratory rate 20 /min Terry Mclaughlin MD Work Phone: [facility] 09-22-2024 11:30-0400 SaO2% (BldA) [Mass fraction] 96 % Terry Mclaughlin MD Work Phone: [facility] 09-22-2024 11:30-0400 Systolic blood pressure 140 mm[Hg] Terry Mclaughlin MD Work Phone: [facility] 09-05-2024 13:19-0400 Body height 165.1 cm Major Gallardo DO Work Phone: [facility] 09-05-2024 13:19-0400 Body mass index (BMI) [Ratio] 36.44 kg/m2 Major Gallardo DO Work Phone: [facility] 09-05-2024 13:19-0400 Body weight 99.34 kg Major Gallardo DO Work Phone: [facility] 09-05-2024 13:19-0400 Diastolic blood pressure 76 mm[Hg] Major Gallardo DO Work Phone: [facility] 09-05-2024 13:19-0400 Systolic blood pressure 126 mm[Hg] Major Gallardo DO Work Phone: [facility] 08-22-2024 09:46-0400 Body height 165.1 cm Terry Mclaughlin MD Work Phone: [facility] 08-22-2024 09:46-0400 Body mass index (BMI) [Ratio] 37.11 kg/m2 Terry Mclaughlin MD Work Phone: [facility] 08-22-2024 09:46-0400 Body temperature 97.81 [degF] Terry Mclaughlin MD Work Phone: [facility] 08-22-2024 09:46-0400 Body weight 101.15 kg Terry Mclaughlin MD Work Phone: [facility] 08-22-2024 09:46-0400 Diastolic blood pressure 62 mm[Hg] Terry Mclaughlin MD Work Phone: [facility] 08-22-2024 09:46-0400 Heart rate 107 /min Terry Mclaughlin MD Work Phone: [facility] 08-22-2024 09:46-0400 Respiratory rate 20 /min Terry Mclaughlin MD Work Phone: [facility] 08-22-2024 09:46-0400 SaO2% (BldA) [Mass fraction] 95 % Terry Mclaughlin MD Work Phone: [facility] 08-22-2024 09:46-0400 Systolic blood pressure 134 mm[Hg] Terry Mclaughlin MD Work Phone: [facility] 06-30-2024 14:26-0400 Diastolic blood pressure 82 mm[Hg] Terry Mclaughlin MD Work Phone: [facility] 06-30-2024 14:26-0400 Heart rate 94 /min Terry Mclaughlin MD Work Phone: [facility] 06-30-2024 14:26-0400 SaO2% (BldA) [Mass fraction] 95 % Terry Mclaughlin MD Work Phone: [facility] 06-30-2024 14:26-0400 Systolic blood pressure 130 mm[Hg] Terry Mclaughlin MD Work Phone: [facility] 06-20-2024 13:51-0400 Body height 170.18 cm Terry Mclaughlin MD Work Phone: [facility] 06-20-2024 13:51-0400 Body mass index (BMI) [Ratio] 34.7 kg/m2 Terry Mclaughlin MD Work Phone: [facility] 06-20-2024 13:51-0400 Body weight 100.69 kg Terry Mclaughlin MD Work Phone: [facility] 06-20-2024 13:51-0400 Diastolic blood pressure 80 mm[Hg] Terry Mclaughlin MD Work Phone: [facility] 06-20-2024 13:51-0400 Heart rate 93 /min Terry Mclaughlin MD Work Phone: [facility] 06-20-2024 13:51-0400 SaO2% (BldA) [Mass fraction] 96 % Terry Mclaughlin MD Work Phone: [facility] 06-20-2024 13:51-0400 Systolic blood pressure 130 mm[Hg] Terry Mclaughlin MD Work Phone: [facility] 06-01-2024 10:14-0400 Diastolic blood pressure 71 mm[Hg] Terry Mclaughlin MD Work Phone: [facility] 06-01-2024 10:14-0400 Heart rate 79 /min Terry Mclaughlin MD Work Phone: [facility] 06-01-2024 10:14-0400 Respiratory rate 16 /min Terry Mclaughlin MD Work Phone: [facility] 06-01-2024 10:14-0400 SaO2% (BldA) [Mass fraction] 96 % Terry Mclaughlin MD Work Phone: [facility] 06-01-2024 10:14-0400 Systolic blood pressure 111 mm[Hg] Terry Mclaughlin MD Work Phone: [facility] 06-01-2024 09:36-0400 Inhaled oxygen flow rate 4 L/min Terry Mclaughlin MD Work Phone: [facility] 06-01-2024 08:09-0400 Body height 170.18 cm Terry Mclaughlin MD Work Phone: [facility] 06-01-2024 08:09-0400 Body weight 100.69 kg Terry Mclaughlin MD Work Phone: [facility] 05-23-2024 12:26-0400 Diastolic blood pressure 80 mm[Hg] Terry Mclaughlin MD Work Phone: [facility] 05-23-2024 12:26-0400 Heart rate 97 /min Terry Mclaughlin MD Work Phone: [facility] 05-23-2024 12:26-0400 SaO2% (BldA) [Mass fraction] 95 % Terry Mclaughlin MD Work Phone: [facility] 05-23-2024 12:26-0400 Systolic blood pressure 122 mm[Hg] Terry Mclaughlin MD Work Phone: [facility] 05-11-2024 12:30-0400 Diastolic blood pressure 62 mm[Hg] Terry Mclaughlin MD Work Phone: [facility] 05-11-2024 12:30-0400 Heart rate 76 /min Terry Mclaughlin MD Work Phone: [facility] 05-11-2024 12:30-0400 Respiratory rate 16 /min Terry Mclaughlin MD Work Phone: [facility] 05-11-2024 12:30-0400 SaO2% (BldA) [Mass fraction] 97 % Terry Mclaughlin MD Work Phone: [facility] 05-11-2024 12:30-0400 Systolic blood pressure 131 mm[Hg] Terry Mclaughlin MD Work Phone: [facility] 05-11-2024 11:52-0400 Inhaled oxygen flow rate 3 L/min Terry Mclaughlin MD Work Phone: [facility] 05-11-2024 10:33-0400 Body height 170.18 cm Terry Mclaughlin MD Work Phone: [facility] 05-11-2024 10:33-0400 Body weight 100.69 kg Terry Mclaughlin MD Work Phone: [facility] 04-13-2024 13:14-0500 Body weight 100.75 kg [facility] 04-13-2024 13:14-0500 Diastolic blood pressure 70 mm[Hg] [facility] 04-13-2024 13:14-0500 Heart rate 92 /min [facility] 04-13-2024 13:14-0500 SaO2% (BldA) [Mass fraction] 95 % [facility] 04-13-2024 13:14-0500 Systolic blood pressure 130 mm[Hg] [facility] 02-24-2024 13:06-0500 Body mass index (BMI) [Ratio] 36.28 kg/m2 Terry Mclaughlin MD Work Phone: [facility] 02-24-2024 13:06-0500 Body temperature 97 [degF] Terry Mclaughlin MD Work Phone: [facility] 02-24-2024 13:06-0500 Body weight 98.88 kg Terry Mclaughlin MD Work Phone: [facility] 02-24-2024 13:06-0500 Diastolic blood pressure 70 mm[Hg] Terry Mclaughlin MD Work Phone: [facility] 02-24-2024 13:06-0500 Heart rate 94 /min Terry Mclaughlin MD Work Phone: [facility] 02-24-2024 13:06-0500 SaO2% (BldA) [Mass fraction] 97 % Terry Mclaughlin MD Work Phone: [facility] 02-24-2024 13:06-0500 Systolic blood pressure 128 mm[Hg] Terry Mclaughlin MD Work Phone: [facility] 11-19-2023 10:32-0400 Body height 165.1 cm Terry Mclaughlin MD Work Phone: [facility] 11-19-2023 10:32-0400 Body mass index (BMI) [Ratio] 36.61 kg/m2 Terry Mclaughlin MD Work Phone: [facility] 11-19-2023 10:32-0400 Body temperature 97.3 [degF] Terry Mclaughlin MD Work Phone: [facility] 11-19-2023 10:32-0400 Body weight 99.79 kg Terry Mclaughlin MD Work Phone: [facility] 11-19-2023 10:32-0400 Diastolic blood pressure 80 mm[Hg] Terry Mclaughlin MD Work Phone: [facility] 11-19-2023 10:32-0400 Heart rate 99 /min Terry Mclaughlin MD Work Phone: [facility] 11-19-2023 10:32-0400 Respiratory rate 20 /min Terry Mclaughlin MD Work Phone: [facility] 11-19-2023 10:32-0400 SaO2% (BldA) [Mass fraction] 95 % Terry Mclaughlin MD Work Phone: [facility] 11-19-2023 10:32-0400 Systolic blood pressure 152 mm[Hg] Terry Mclaughlin MD Work Phone: [facility] Encounters Encounter Date Encounter Type Care Provider Facility Start: 10-24-2024 End: 10-24-2024 [facility] Start: 10-07-2024 End: 10-07-2024 Telephone encounter Jr. Sonja Saleh DO Work Phone: [facility] Comment on above: referral Start: 10-04-2024 End: 10-04-2024 Bamchristian Saleh DO Work Phone: [facility] Start: 10-04-2024 End: 10-04-2024 Bamchristian Saleh DO Work Phone: [facility] Start: 10-04-2024 End: 10-04-2024 Office outpatient visit 15 minutes Jr. Sonja Saleh DO Work Phone: [facility] Comment on above: Acute pain of right knee; History of right knee joint replacement; Prosthetic joint loosening, initial encounter; Tendonitis of ankle, right; Right ankle pain, unspecified chronicity Start: 10-04-2024 End: 10-04-2024 ambulatory SONJA VASQUEZ Not Available Start: 10-03-2024 End: 10-03-2024 ambulatory [facility] Start: 09-23-2024 End: 09-23-2024 ambulatory [facility] Start: 09-23-2024 Encounter for other specified special examinations [facility] Start: 09-23-2024 End: 09-23-2024 Telephone encounter Jr. Sonja Saleh DO Work Phone: [facility] Comment on above: unable to complete m ri Start: 09-22-2024 End: 09-22-2024 Ujogo Terry Mclaughlin MD Work Phone: [facility] Start: 09-22-2024 End: 09-22-2024 Ujogo Terry Mclaughlin MD Work Phone: [facility] Start: 09-22-2024 End: 09-23-2024 ambulatory TERRY MCLAUGHLIN Not Available Start: 09-22-2024 End: 09-22-2024 Office outpatient visit 25 minutes Terry Mclaughlin MD Work Phone: [facility] Comment on above: Lumbar spondylosis ( Primary Dx); Primary osteoarthritis of right knee; Postoperative pain of right knee; Class 2 severe obesity due to excess calories with serious comorbidity and body mass index (BMI) of 37.0 to 37.9 in adult ([facility]) Start: 09-19-2024 End: 09-19-2024 ambulatory SONJA SALEH [facility] Start: 09-19-2024 End: 09-19-2024 ambulatory SONJA SALEH JR [facility] Start: 09-07-2024 End: 09-07-2024 ambulatory [facility] Start: 09-06-2024 End: 09-06-2024 ambulatory SONJA VASQUEZ Not Available Start: 09-06-2024 End: 09-06-2024 Office outpatient visit 25 minutes Jr. Sonja Saleh DO Work Phone: [facility] Comment on above: Right ankle pain, un specified chronicity; Tendonitis of ankle, right; History of right knee joint replacement; Acute pain of right knee Start: 09-05-2024 End: 09-05-2024 Patient encounter status Major Gallardo DO Work Phone: [facility] Healthcare Start: 09-05-2024 End: 09-05-2024 Periodic preventive med est patient 40-64yrs Major Gallardo DO Work Phone: [facility] Comment on above: Encounter for gyneco logical examination without abnormal finding (Primary Dx); Encounter for Papanicolaou smear of cervix; Breast cancer screening by mammogram; Osteopenia, unspecified location; Screening for osteoporosis; Asymptomatic menopausal state Start: 09-05-2024 End: 09-05-2024 ambulatory MAJOR GALLARDO Not Available Start: 08-22-2024 End: 08-22-2024 Bamboo flowsheet Terry Mclaughlin MD Work Phone: [facility] Start: 08-22-2024 End: 08-22-2024 Bamboo flowsheet Terry Mclaughlin MD Work Phone: [facility] Start: 08-22-2024 End: 08-22-2024 Clinisync Result Encounter Terry Mclaughlin MD Work Phone: [facility] External Department Unsolicited Start: 08-22-2024 End: 08-22-2024 Office outpatient visit 25 minutes Terry Mclaughlin MD Work Phone: [facility] Comment on above: Lumbar spondylosis ( Primary Dx); Primary osteoarthritis of right knee; Acute right ankle pain; Primary insomnia; Seasonal allergic rhinitis due to pollen; Class 2 severe obesity due to excess calories with serious comorbidity and body mass index (BMI) of 37.0 to 37.9 in adult ([facility]) Start: 08-22-2024 End: 08-22-2024 ambulatory TERRY MCLAUGHLIN Not Available Start: 08-17-2024 End: 08-17-2024 ambulatory HENRIETTA Guevara [facility] Start: 08-10-2024 End: 08-10-2024 ambulatory [facility] Start: 07-20-2024 End: 07-20-2024 ambulatory [facility] Start: 07-01-2024 End: 07-01-2024 ambulatory [facility] Start: 06-30-2024 End: 06-30-2024 ambulatory Terry Mclaughlin MD Work Phone: [facility] Work Phone: Start: 06-30-2024 End: 06-30-2024 Patient encounter procedure Terry Mclaughlin MD Work Phone: [facility] Work Phone: Start: 06-29-2024 End: 06-29-2024 Isabell Ivory Stepestefani DO Work Phone: [facility] Start: 06-29-2024 End: 06-29-2024 Isabell Ivory Stepestefani DO Work Phone: [facility] Start: 06-29-2024 End: 06-29-2024 Office outpatient visit 15 minutes Jr. Sonja Saleh DO Work Phone: [facility] Comment on above: Nerve pain (Primary Dx); History of right knee joint replacement Start: 06-29-2024 End: 06-29-2024 ambulatory SONJA VASQUEZ Not Available Start: 06-23-2024 End: 06-23-2024 ambulatory [facility] Start: 06-22-2024 End: 06-22-2024 ambulatory HENRIETTA Guevara [facility] Start: 06-20-2024 End: 06-20-2024 ambulatory Terry Mclaughlin MD Work Phone: [facility] Work Phone: Start: 06-20-2024 End: 06-20-2024 Patient encounter procedure Terry Mclaughlin MD Work Phone: [facility] Work Phone: Start: 06-01-2024 Non-patient / Non-visit Terry cross MD Work Phone: [facility] Work Phone: Start: 06-01-2024 End: 06-01-2024 Admission to same day surgery center Terry Mclaughlin MD Work Phone: [facility] Work Phone: Start: 06-01-2024 End: 06-01-2024 ambulatory Terry Mclaughlin MD Work Phone: [facility] Work Phone: Start: 05-31-2024 End: 05-31-2024 Refill Terry Mclaughlin MD Work Phone: [facility] Comment on above: Lumbar spondylosis Start: 05-30-2024 Non-patient / Non-visit Terry cross MD Work Phone: [facility] Work Phone: Start: 05-30-2024 End: 05-30-2024 ambulatory [facility] Start: 05-23-2024 End: 05-23-2024 Patient encounter procedure Terry Mclaughlin MD Work Phone: [facility] Work Phone: Start: 05-23-2024 End: 05-23-2024 Refill Terry Mclaughlin MD Work Phone: [facility] Comment on above: Insomnia, unspecifie d Start: 05-17-2024 End: 05-17-2024 Refill Terry Mclaughlin MD Work Phone: [facility] Comment on above: Insomnia, unspecifie d Start: 05-17-2024 End: 05-17-2024 ambulatory [facility] Start: 05-11-2024 End: 05-11-2024 Admission to same day surgery center Terry Mclaughlin MD Work Phone: [facility] Work Phone: Start: 05-11-2024 End: 05-11-2024 ambulatory Terry Mclaughlin MD Work Phone: [facility] Work Phone: Start: 04-27-2024 End: 04-27-2024 Refill Terry Mclaughlin MD Work Phone: [facility] Comment on above: S/P TKR (total knee replacement), right Start: 04-22-2024 End: 04-22-2024 ambulatory [facility] Start: 04-19-2024 End: 04-19-2024 ambulatory [facility] Start: 04-13-2024 End: 04-13-2024 ambulatory [facility] Work Phone: Start: 04-13-2024 End: 04-13-2024 Patient encounter procedure [facility] Work Phone: Start: 04-06-2024 End: [...] 03-30-2024 Telephone encounter Keny THACKER Work Phone: [facility] Comment on above: Swelling in RT TKA Start: 03-28-2024 End: 03-28-2024 ambulatory [facility] Start: 03-07-2024 End: 03-07-2024 ambulatory [facility] Start: 03-01-2024 End: 03-02-2024 Telephone encounter Sonja Ivory Delfino DO Work Phone: [facility] Comment on above: Pain Start: 02-24-2024 End: 02-24-2024 Bamboo flowsheet Terry Mclaughlin MD Work Phone: [facility] Start: 02-24-2024 End: 02-24-2024 Bamboo flowsheet Terry Mclaughlin MD Work Phone: [facility] Start: 02-24-2024 End: 02-24-2024 ambulatory TERRY MCLAUGHLIN Not Available Start: 02-24-2024 End: 02-24-2024 Patient encounter procedure Terry Mclaughlin MD Work Phone: [facility] Start: 02-24-2024 End: 02-24-2024 Periodic preventive med est patient 40-64yrs Terry Mclaughlin MD Work Phone: [facility] Comment on above: Annual physical exam (Primary Dx); Lumbar spondylosis; Primary osteoarthritis of right knee; MDD (major depressive disorder), recurrent episode, moderate (CMS/HCC); Overflow incontinence of urine; Class 2 severe obesity due to excess calories with serious comorbidity and body mass index (BMI) of 36.0 to 36.9 in adult (CMS/HCC) Start: 02-24-2024 End: 02-24-2024 ambulatory HENRIETTA HAMILTON [facility] Start: 02-19-2024 End: 02-19-2024 ambulatory [facility] Start: 02-18-2024 End: 02-18-2024 ambulatory [facility] Start: 02-08-2024 End: 02-08-2024 Refill Terry Mclaughlin MD Work Phone: [facility] Comment on above: Primary osteoarthrit is of left knee Start: 02-05-2024 End: 02-05-2024 Refill Terry Mclaughlin MD Work Phone: [facility] Comment on above: Insomnia, unspecifie d Start: 02-02-2024 End: 02-02-2024 Bamboo flowsheet Jr. Sonja Saleh DO Work Phone: [facility] Start: 02-02-2024 End: 02-02-2024 Bamboo flowsheet Jr. Sonja Saleh DO Work Phone: [facility] Start: 02-02-2024 End: 02-02-2024 Office outpatient visit 15 minutes Jr. Sonja Saleh DO Work Phone: [facility] Comment on above: Acute pain of right knee (Primary Dx) Start: 02-02-2024 End: 02-02-2024 ambulatory SONJA VASQUEZ Not Available Start: 01-25-2024 End: 01-25-2024 ambulatory [facility] Start: 01-18-2024 End: 01-18-2024 Refill Terry Mclaughlin MD Work Phone: [facility] Comment on above: S/P TKR (total knee replacement), right Start: 01-06-2024 End: 01-06-2024 Bamboo flowsheet Jr. Sonja Ivory Stepestefani DO Work Phone: [facility] Start: 01-06-2024 End: 01-06-2024 Bamboo flowsheet Jr. Sonja Ivory Stepestefani DO Work Phone: [facility] Start: 01-06-2024 End: 01-06-2024 Office outpatient visit 25 minutes Jr. Sonja Saleh DO Work Phone: [facility] Comment on above: Acute pain of right knee (Primary Dx); History of right knee joint replacement Start: 01-06-2024 End: 01-06-2024 ambulatory SONJA VASQUEZ Cachorro SALEH Not Available Start: 12-29-2023 End: 12-29-2023 ambulatory HENRIETTA HAMILTON [facility] Start: 12-24-2023 End: 12-24-2023 ambulatory JUAN MIGUEL ANDREW [facility] Start: 12-22-2023 End: 01-05-2024 Telephone encounter JrBraydon Woodwardestefani DO Work Phone: [facility] Start: 12-21-2023 End: 12-21-2023 Bamboo flowsheet Jr. Sonja Saleh DO Work Phone: [facility] Start: 12-21-2023 End: 12-21-2023 Bamboo flowsheet Jr. Sonja Saleh DO Work Phone: [facility] Start: 12-21-2023 End: 12-21-2023 Office outpatient visit 25 minutes Jr. Sonja Saleh DO Work Phone: [facility] Comment on above: Acute pain of right knee (Primary Dx); History of right knee joint replacement; Arthralgia of right knee Start: 12-21-2023 End: 12-21-2023 ambulatory SONJA VASQUEZ Cachorro SALEH Not Available Start: 12-16-2023 End: 12-16-2023 Bamboo [...] Start: 12-14-2023 End: 12-14-2023 Bamboo flowsheet Una Brink [employer] [facility] Start: 12-14-2023 End: 12-14-2023 Bamboo flowsheet Una Brink [employer] [facility] Start: 12-14-2023 End: 12-15-2023 ambulatory Una Brink [employer] [facility] Comment on above: Primary osteoarthrit is of right knee (Primary Dx); Postoperative pain of right knee; Status post right knee replacement; Presence of artificial knee joint, right Primary osteoarthrit is of left knee Start: 12-08-2023 End: 12-08-2023 ambulatory [facility] Start: 12-07-2023 End: 12-07-2023 Bamboo flowsheet Una Brink [employer] [facility] Start: 12-07-2023 End: 12-07-2023 Bamboo flowsheet Una Brink [employer] [facility] [facility] Start: 12-07-2023 End: 12-07-2023 ambulatory Una Trejoink [employer] [facility] Comment on above: Postoperative [...] Start: 11-30-2023 End: 11-30-2023 ambulatory Una Maynard [employer] [facility] Comment on above: Primary osteoarthrit is of right knee (Primary Dx); Postoperative pain of right knee; Status post right knee replacement; Presence of artificial knee joint, right Start: 11-30-2023 End: 12-01-2023 Telephone encounter Jr. Sonja Saleh DO Work Phone: [facility] Start: 11-25-2023 End: 11-25-2023 Bamboo flowsheet Una Maynard [employer] [facility] Start: 11-25-2023 End: 11-25-2023 Bamboo flowsheet Una Maynard [employer] [facility] Start: 11-25-2023 End: 11-25-2023 ambulatory Una Maynard [employer] [facility] Comment on above: Primary osteoarthrit is of right knee (Primary Dx); Postoperative pain of right knee; Status post right knee replacement; Presence of artificial knee joint, right Start: 11-24-2023 End: 11-24-2023 ambulatory [facility] Start: 11-23-2023 End: 11-23-2023 Bamboo flowsjared Saleh DO Work Phone: [facility] Start: 11-23-2023 End: 11-23-2023 Bamboo won Saleh DO Work Phone: [facility] Start: 11-23-2023 End: 11-23-2023 Clinisync Result Encounter Terry Mclaughlin MD Work Phone: [facility] External Department Unsolicited Start: 11-23-2023 End: 11-23-2023 Postop follow up visit related to original px Jr. Sonja Saleh DO Work Phone: [facility] Comment on above: S/P TKR (total knee replacement), right (Primary Dx); Primary osteoarthritis of right knee Start: 11-23-2023 End: 11-23-2023 ambulatory SONJA VASQUEZ Not Available Start: 11-19-2023 End: 11-19-2023 Bamboo flowsheet Terry Mclaughlin MD Work Phone: [facility] Start: 11-19-2023 End: 11-19-2023 Bamboo flowsheet Terry Mclaughlin MD Work Phone: [facility] Start: 11-19-2023 End: 11-19-2023 Office outpatient visit 25 minutes Terry Mclaughlin MD Work Phone: [facility] Comment on above: Lightheaded (Primary Dx); Fatigue, unspecified type; Postoperative pain of right knee; Overflow incontinence of urine; Encounter for long-term (current) use of medications; Primary osteoarthritis of right knee; Body mass index (BMI) 36.0-36.9, adult Start: 11-19-2023 End: 11-19-2023 ambulatory TERRY MCLAUGHLIN Not Available Start: 11-12-2023 End: 11-19-2023 Telephone encounter Una Maynard PTA [facility] Comment on above: re: [...] 11-13-2023 Telephone encounter Keny THACKER [facility] Start: 11-09-2023 End: 11-09-2023 ManjinderGreen Aalecia [employer]ared Saleh [employer] Work Phone: [facility] Start: 11-09-2023 End: 11-09-2023 ManjinderSHIMAUMA Print Systemjared Saleh DO Work Phone: [facility] Start: 11-09-2023 End: 11-09-2023 Clinisync Result Encounter Generic External Data Provider [facility] External Department Unsolicited Start: 11-09-2023 End: 11-09-2023 Postop follow up visit related to original px Jr. Sonja Saleh DO Work Phone: [facility] Comment on above: S/P TKR (total knee replacement), right (Primary Dx); Acute pain of right knee Start: 11-09-2023 End: 11-09-2023 ambulatory SONJA VASQUEZ Not Available Start: 11-06-2023 End: 11-06-2023 Bamboo flowsheet Una Maynard [employer] [facility] Start: 11-06-2023 End: 11-06-2023 Bamboo flowsheet Una Maynard [employer] [facility] Start: 11-06-2023 End: 11-06-2023 ambulatory Una Maynard [employer] [facility] Comment on above: Primary osteoarthrit is of right knee (Primary Dx); Postoperative pain of right knee; Status post right knee replacement; Presence of artificial knee joint, right Start: 11-04-2023 End: 11-04-2023 Telephone encounter Una Maynard [employer] [facility] Comment on above: NC/NS for PT (Tried to contact re: NC/NS for last scheduled PT; had to lm. I requested a call back due to she has an ext on the referral dated to begin 11/05.); Call Back (She called noting that the appt was marked wrong on calendar; we rs for 11/05.) Start: 11-04-2023 End: 11-04-2023 ambulatory [facility] Start: 11-03-2023 End: 11-03-2023 Juwan Mclaughlin MD Work Phone: [facility] Comment on above: Insomnia, unspecifie d Start: 10-30-2023 End: 11-03-2023 Telephone encounter Keny THACKER Work Phone: [facility] Start: 10-29-2023 End: 10-29-2023 ambulatory Una Maynard [employer] [facility] Comment on above: Primary osteoarthrit is of right knee (Primary Dx); Postoperative pain of right knee; Status post right knee replacement; Presence of artificial knee joint, right Start: 10-28-2023 End: 10-28-2023 Bamboo flowsheet Keny THACKER Work Phone: [facility] Start: 10-28-2023 End: 10-28-2023 Bamboo flowsheet Keny THACKER Work Phone: [facility] Start: 10-28-2023 End: 10-28-2023 Postop follow up visit related to original px Keny Bernal PA Work Phone: [facility] Comment on above: S/P TKR (total knee replacement), right (Primary Dx) Start: 10-28-2023 End: 10-28-2023 ambulatory KENY BERNAL Not Available Start: 10-27-2023 End: 10-28-2023 Juwan Mclaughlin MD Work Phone[facility] Comment on above: Primary osteoarthrit is of left knee Start: 10-21-2023 End: 10-21-2023 Bamboo flowsheet Zabrina Kelbley [employer] [facility] Start: 10-21-2023 End: 10-21-2023 Bamboo flowsheet Zabrina Kelbley [employer] [facility] Start: 10-21-2023 End: 10-21-2023 ambulatory Zabrina Kelbley [employer] [facility] Comment on above: Primary osteoarthrit is of right knee (Primary Dx); Postoperative pain of right knee; Status post right knee replacement; Presence of artificial knee joint, right Start: 10-14-2023 End: 10-14-2023 Bamboo flowsheet Zabrina Kelbley [employer] [facility] Start: 10-14-2023 End: 10-14-2023 Bamboo flowsheet Zabrina Kelbley [employer] [facility] Start: 10-14-2023 End: 10-14-2023 Postop follow up visit related to original px Keny Bernal PA Work Phone: [facility] Comment on above: S/P TKR (total knee replacement), right (Primary Dx); Acute pain of right knee Start: 10-14-2023 End: 10-14-2023 ambulatory KENY BERNAL Not Available Start: 10-14-2023 End: 10-14-2023 ambulatory Zabrina Kelbley [employer] [facility] Comment on above: Primary osteoarthrit is of right knee (Primary Dx); Postoperative pain of right knee; Status post right knee replacement; Presence of artificial knee joint, right Start: 10-12-2023 End: 10-12-2023 Telephone encounter Keny THACKER Work Phone: [facility] Comment on above: Med Refill Start: 10-10-2023 End: 10-11-2023 Preprocedural examination done Keny THACKER Work Phone: [facility] Start: 10-10-2023 End: 10-11-2023 Refill Keny THACKER Work Phone: [facility] Comment on above: Preop examination; Primary osteoarthritis of right knee Start: 10-09-2023 End: 10-09-2023 Bamboo flowsheet Una Brink [employer] [facility] Start: 10-09-2023 End: 10-09-2023 Bamboo flowsheet Una Brink [employer] [facility] Start: 10-09-2023 End: 10-09-2023 ambulatory Una Brink [employer] [facility] Comment on above: Primary osteoarthrit is of right knee (Primary Dx); Postoperative pain of right knee; Status post right knee replacement; Presence of artificial knee joint, right Start: 09-30-2023 End: 10-06-2023 Telephone encounter Keny THACKER Work Phone: [facility] Comment on above: refill Start: 08-17-2023 End: 11-19-2023 Preoperative state Terry Mclaughlin MD Work Phone: [facility] Start: 03-18-2023 Refill Terry Alvarenga Work Phone: [facility] Comment on above: Gastroesophageal ref [...] Date Procedure Procedure Detail Performing Clinician Start: 10-04-2024 Radiologic examination knee 1/2 views JrBraydon Saleh DO Work Phone: Start: 08-22-2024 Radiologic examination ankle 2 views Terry Mclaughlin MD Work Phone: Start: 08-22-2024 ALL URIC ACID Terry Mclaughlin MD Work Phone: Start: 06-01-2024 Radiofrequency destruction of peripheral nerve Terry Mclaughlin MD Work Phone: Start: 05-11-2024 Local anesthetic nerve block in lower limb Terry Mclaughlin MD Work Phone: Start: 12-21-2023 Radiologic examination knee 3 views JrBraydon Saleh DO Work Phone: Start: 11-23-2023 ALL CBC WITH AUTO DIFF Terry Mclaughlin MD Work Phone: Start: 11-09-2023 ALL CBC WITH AUTO DIFF Jr. Sonja jara DO Work Phone: Start: 09-07-2023 Mammography Terry Mclaughlin MD Work Phone: Start: 09-01-2023 Microscopic observation [Identifier] in Cervix by Cyto stain Terry Mclaughlin MD Work Phone: Start: 06-16-2022 Mammography Terry Mclaughlin MD Work Phone: History of operative procedure on knee History of right knee joint replacement Jr. Sonja Ivory Stepestefani DO Work Phone: History of operative procedure on knee History of right knee joint replacement Jr. Sonja Saleh DO Work Phone: History of operative procedure on knee History of right knee joint replacement Jr. Sonja Saleh DO Work Phone: History of operative procedure on knee History of right knee joint replacement Jr. Sonja C Stepanic DO Work Phone: History of operative procedure on knee History of right knee joint replacement Jr. Sonja Ivoyr Stepanic DO Work Phone: History of operative procedure on knee History of right knee joint replacement Jr. Sonja Ivory Stepanic DO Work Phone: Plan of Treatment Date Care Activity Detail Author Start: 09-05-2029 Screening for malign ant neoplasm of cervix [facility] Start: 08-30-2027 Screening for malign ant neoplasm of cervix [facility] Start: 09-01-2026 Screening for malign ant neoplasm of colon [facility] Start: 08-31-2026 Screening for malign ant neoplasm of cervix Pap Smear [facility] Start: 09-08-2025 End: 09-08-2025 Patient encounter procedure [facility] Start: 02-24-2025 End: 02-24-2025 Patient encounter procedure 02/24/2025 11:30 AM EST Office Visit [facility] [address] [place] [address] Terry Mclaughlin MD [address] [place] [phone] [facility] Start: 11-22-2024 End: 11-22-2024 Patient encounter procedure 11/22/2024 1:30 PM EDT Office Visit [facility] [address] [place] [address] Terry Mclaughlin MD [address] [place] [address] [facility] Start: 10-17-2024 Influenza vaccination [facility] Start: 10-04-2024 End: 10-04-2024 Patient encounter procedure [facility] Comment on above: Arrived Start: 09-22-2024 End: 09-22-2024 Patient encounter procedure 09/22/2024 11:15 AM EDT Office Visit [facility] [address] [place] [address] Terry Mclaughlin MD [address] [place] [address] [facility] Start: 09-07-2024 End: 11-06-2025 DBT Breast - bilateral screening Bilateral screening mammogram with tomosynthesis Imaging Routine Breast cancer screening by mammogram Expected: 09/07/2024, Expires: 11/06/2025 [facility] Comment on above: Expected: 09/07/2024 , Expires: 11/06/2025 Start: 09-06-2024 End: 09-06-2025 MR Ankle - right WO contrast MR ankle right wo IV contrast Imaging Routine Tendonitis of ankle, right Expected: 09/06/2024 (Approximate), Expires: 09/06/2025 [facility] Work Phone: Comment on above: Expected: 09/06/2024 (Approximate), Expires: 09/06/2025 Start: 09-06-2024 End: 09-06-2025 NM Whole body Bone 3 Phase Views NM bone 3 phase Imaging Routine History of right knee joint replacement Acute pain of right knee Expected: 09/06/2024 (Approximate), Expires: 09/06/2025 [facility] Comment on above: Expected: 09/06/2024 (Approximate), Expires: 09/06/2025 Start: 09-06-2024 Screening for malign ant neoplasm of breast Mammogram [facility] Start: 09-06-2024 End: 09-06-2024 Patient encounter procedure 09/06/2024 10:15 AM EDT Office Visit [facility] [address] [place] [id number] Jr. Sonja Saleh, DO [address] [place] [address] [facility] Start: 09-05-2024 End: 09-05-2025 DXA Skeletal system Views for bone density DEXA bone density Imaging Routine Osteopenia, unspecified location Screening for osteoporosis Asymptomatic menopausal state Expected: 09/05/2024, Expires: 09/05/2025 [facility] Comment on above: Expected: 09/05/2024 , Expires: 09/05/2025 Start: 09-05-2024 End: 09-05-2024 Patient encounter procedure 09/05/2024 1:30 PM EDT Office Visit [facility] [address] [place] [address] Major Gallardo, [address] [place] [address] [facility] Start: 08-25-2024 End: 08-25-2024 Patient encounter procedure 08/25/2024 10:15 AM EDT Office Visit [facility] [address] [place] [address] Terry Mclaughlin MD [address] [place] [address] [facility] Start: 08-23-2024 End: 08-23-2024 Patient encounter procedure 08/23/2024 1:15 PM EDT Office Visit [facility] [address] [place] [address] Terry Mclaughlin MD [address] [place] [address] [facility] Start: 08-22-2024 End: 08-22-2025 Urate [Mass/volume] in Serum or Plasma Uric acid Lab Routine Acute right ankle pain Expected: 08/22/2024 (Approximate), Expires: 08/22/2025 [facility] Work Phone: Comment on above: Expected: [...] [facility] [address] [place] [address] Terry Mclaughlin MD [address] [place] [address] Arrived [facility] Comment on above: Arrived Start: 06-29-2024 End: 06-29-2024 Patient encounter procedure [facility] Comment on above: Arrived Start: 06-01-2024 [facility] Start: 05-11-2024 [facility] Start: 04-06-2024 End: 04-06-2024 Patient encounter procedure 04/06/2024 9:00 AM EST Office Visit [facility] [address] [place] [address] Jr. Sonja Saleh, DO [address] [place] [address] [facility] Start: 03-29-2024 End: 03-29-2024 Patient encounter procedure 03/29/2024 11:15 AM EST Office Visit [facility] [address] [place] [phone] Jr. Sonja Salhe, DO [address] [facility] [address] [place] [address] [facility] Start: 02-24-2024 End: 02-24-2024 Patient encounter procedure 02/24/2024 1:00 PM EST Office Visit [facility] [address] [place] [phone] Terry Mclaughlin MD [address] [place] [address] [facility] Start: 02-23-2024 End: 02-23-2024 Patient encounter procedure 02/23/2024 10:30 AM EST Office Visit [facility] [address] [place] [address] Jr. Sonja Saleh, DO [address] [place] [address] [facility] Start: 02-02-2024 End: 02-02-2024 Patient encounter procedure [facility] Comment on above: Arrived Start: 01-06-2024 End: 01-06-2024 Patient encounter procedure [facility] Comment on above: Arrived Start: 12-23-2023 End: 12-23-2023 ambulatory 12/23/2023 11:00 AM EST Treatment [facility] [address] [place] [address] Tabatha Onofre, PT [address] [place] [address] [facility] Start: 12-21-2023 End: 12-21-2023 Patient encounter procedure [facility] Comment on above: Arrived Start: 12-16-2023 End: 12-16-2023 ambulatory 12/16/2023 1:00 PM EDT Treatment [facility] [address] [place] [address] Tabatha Onofre, PT [address] [place] [address] [facility] Start: 12-14-2023 End: 12-14-2023 ambulatory [facility] Comment on above: Arrived Start: 12-10-2023 End: 12-10-2023 ambulatory 12/10/2023 1:00 PM EDT Treatment [facility] [address] [place] [address] Una Maynard PTA [facility] Start: 12-07-2023 End: 12-07-2023 ambulatory 12/07/2023 1:00 PM EDT Treatment [facility] [address] [place] [address] Una Maynard PTA [facility] Start: 12-04-2023 End: 12-04-2023 Patient encounter procedure 12/04/2023 10:15 AM EDT Office Visit [facility] [address] [place] [address] Keny Bernal PA [address] [place] [address] [facility] Start: 12-03-2023 End: 12-03-2023 ambulatory [facility] Comment on above: Arrived Start: 11-30-2023 End: 11-30-2023 ambulatory 11/30/2023 2:00 PM EDT Treatment [facility] [address] [place] [address] Una Maynard PTA [facility] Start: 11-25-2023 End: 11-25-2023 ambulatory [facility] Comment on above: Arrived Start: 11-23-2023 End: 11-23-2023 Patient encounter procedure [facility] Comment on above: Arrived Start: 11-19-2023 End: 11-18-2024 Basic metabolic 1998 panel - Serum or Plasma Basic metabolic panel Lab Routine Encounter for long-term (current) use of medications Expected: 11/19/2023 (Approximate), Expires: 11/18/2024 [facility] Work Phone: Comment on above: Expected: 11/19/2023 (Approximate), Expires: 11/18/2024 Start: 11-19-2023 End: 11-18-2024 CBC W Auto Differential panel - Blood CBC and differential Lab Routine Encounter for long-term (current) use of medications Expected: 11/19/2023 (Approximate), Expires: 11/18/2024 [facility] Comment on above: Expected: 11/19/2023 (Approximate), Expires: 11/18/2024 Start: 11-19-2023 End: 11-18-2024 Hepatic function 2000 panel - Serum or Plasma Hepatic function panel Lab Routine Encounter for long-term (current) use of medications Expected: 11/19/2023 (Approximate), Expires: 11/18/2024 [facility] Comment on above: Expected: 11/19/2023 (Approximate), Expires: 11/18/2024 Start: 11-19-2023 End: 11-18-2024 TSH W/REFLEX TO FT4 TSH W/REFLEX TO FT4 Lab Routine Lightheaded Fatigue, unspecified type Expected: 11/19/2023 (Approximate), Expires: 11/18/2024 [facility] Comment on above: Expected: 11/19/2023 (Approximate), Expires: 11/18/2024 Start: 11-19-2023 End: 11-19-2023 Patient encounter procedure 11/19/2023 10:30 AM EDT Office Visit [facility] [address] [place] [address] Terry Mclaughlin MD [address] [place] [address] Arrived [facility] Comment on above: Arrived Start: 11-18-2023 End: 11-18-2023 Patient encounter procedure 11/18/2023 11:15 AM EDT Office Visit [facility] [address] [place] [phone] Keny Bernal, KIRSTIE [address] [place] [address] [facility] Start: 11-10-2023 End: 11-10-2023 ambulatory 11/10/2023 11:00 AM EDT Treatment [facility] [address] [place] [address] Una Maynard PTA [facility] Start: [...] [address] [place] [address] Una Maynard PTA [facility] Start: 11-04-2023 End: 11-04-2023 ambulatory 11/04/2023 1:30 PM EDT Treatment [facility] [address] [place] [address] Una Maynard PTA [facility] Start: 10-29-2023 End: 10-29-2023 ambulatory 10/29/2023 1:00 PM EDT Treatment [facility] [address] [place] [address] Una Maynard PTA [facility] Start: [...] EDT Office Visit [facility] [address] [place] [phone] Keny Bernal, PA [address] [facility] [address] [place] [address] [facility] Start: 10-14-2023 End: 10-14-2023 ambulatory [facility] Start: 10-09-2023 End: 10-09-2023 ambulatory [facility] Comment on above: Primary osteoarthrit is of right knee (Primary Dx); Postoperative pain of right knee; Status post right knee replacement; Presence of artificial knee joint, right Start: 10-07-2023 End: 10-07-2023 ambulatory 10/07/2023 11:30 AM EDT Treatment [facility] [address] [facility] [address] [place] [phone] Una Maynard PTA [facility] Start: 09-01-2023 End: 09-01-2023 Patient encounter procedure 09/01/2023 11:30 AM EDT Office Visit [facility] [address] [facility] [address] [place] [phone] Major Gallardo DO [address] [facility] [address] [place] [address] [facility] Start: 08-17-2023 End: 08-17-2023 Patient encounter procedure 08/17/2023 10:45 AM EDT Office Visit [facility] [address] [place] [phone] Terry Mclaughlin MD [address] [place] [address] [facility] Start: 07-15-2023 End: 07-15-2023 Patient encounter procedure 07/15/2023 11:00 AM EDT Office Visit [facility] [address] [place] [id number] Jr. Sonja Saleh, DO [address] [place] [address] [facility] Start: 06-17-2023 Screening for malign ant neoplasm of breast Mammogram [facility] Start: 10-17-2022 Influenza vaccination Influenza Vacc ine (#1) [facility] Start: 10-09-1983 Screening for malign ant neoplasm of cervix Pap Smear [facility] Start: 1960 Screening for malign ant neoplasm of colon [facility] IGP, APT HPV,RFX 16/18,45 IGP, APT HPV,RFX 16/18,45 Lab Routine Encounter for Papanicolaou smear of cervix Ordered: 09/05/2024 [facility] Work Phone: Comment on above: Ordered: 09/05/[address] [facility] Work Phone: Patient referral [facility] Work Phone: XR Knee - right 1 or 2 Views XR knee 1 or 2 views right Imaging Routine Acute pain of right knee 10/14/2023 1:11 PM EDT [facility] Work Phone: Immunizations Immunization Date Immunization Notes Care Provider Fa cility 12-03-2021 COVID-19 mRNA Bivale nt Booster (Pfizer) Terry Mclaughlin MD Work Phone: [facility] 12-03-2021 Moderna Bivalent Booster Vaccination Terry Mclaughlin MD Work Phone: [facility] 09-07-2021 COVID-19 Comirnaty (Pfizer) Tri-Sucrose 12+ Terry Mclaughlin MD Work Phone: [facility] 12-15-2020 COVID-19 mRNA, Comirnaty (Pfizer) Terry Mclaughlin MD Work Phone: [facility] 06-03-2020 COVID-19 mRNA, Comirnaty (Pfizer) Terry Mclaughlin MD Work Phone: [facility] 05-14-2020 COVID-19 mRNA, Comirnaty (Pfizer) Terry Mclaughlin MD Work Phone: [facility] 12-27-2018 influenza, injectabl e, quadrivalent, preservative free Terry Mclaughlin MD Work Phone: [facility] 12-27-2018 influenza virus vaccine, unspecified formulation Terry Mclaughlin MD Work Phone: [facility] Healthcare Payers Date Payer Category Payer Self-pay [id number] 2024 Self-pay 2021 [facility] BCBS Memb er Subscriber Plan / Payer (Effective 2021-Present) Name: Phuong Randhawa Relation to Subscriber: Self Name: Phuong Randhawa Payer ID: Not on file Type: Not on file Address: [address] [place] [id number] 2021 Unknown BCBS BCBS xxxxxx [id number] 2021-Present [phone] [address] [place] [id number] 1.2.840.674700.1.13.693.2 .7.3.167811.315 1962 Unknown [id number] 2.16.840.1.852613.3.579.2 .593 1962 Unknown [id number] 2.16.840.1.077129.3.579.2 .593 1962 Unknown [id number] 2.16.840.1.114920.3.579.2 .593 1962 Unknown [id number] 2.16.840.1.056474.3.579.2 .593 1962 Unknown [id number] 2.16.840.1.315759.3.579.2 .593 1962 Unknown [id number] 2.16.840.1.057274.3.579.2 .1286 1962 Unknown [id number] 2.16.840.1.902035.3.579.2 .1286 1962 Unknown [id number] 2.840.1.629153.3.579.2 .1286 1962 Unknown [id number] 2.840.1.127790.3.579.2 .1259 1962 Unknown [id number] 2.840.1.533185.3.579.2 .125 1962 Unknown [id number] 2.840.1.204770.3.579.2 .1259 1962 Unknown [id number] 2.840.1.202446.3.579.2 .1259 1962 Unknown [id number] 2.16.840.1.304388.3.579.2 .1259 1962 Unknown [id number] 2.16.840.1.854436.3.579.2 .1259 1962 Unknown [id number] 2.16.840.1.118682.3.579.2 .1259 1962 Unknown [id number] 2.16.840.1.821874.3.579.2 .1259 1962 Unknown [id number] 2.16.840.1.076859.3.579.2 .1258 1962 Unknown [id number] 2.16.840.1.440298.3.579.2 .1258 1962 Unknown [id number] 2.16.840.1.256584.3.579.2 .1258 1962 Unknown [id number] 2.16840.1.697623.3.579.2 .1258 1962 Unknown [id number] 2.16.840.1.073061.3.579.2 .1258 1962 Unknown [id number] 2.840.1.343789.3.579.2 .1258 1962 Unknown [id number] 2.840.1.810219.3.579.2 .1258 1962 Unknown [id number] 2.840.1.905619.3.579.2 .1258 1962 Unknown [id number] 2.840.1.058499.3.579.2 .1258 1962 Unknown [id number] 2.840.1.043004.3.579.2 .1258 1962 Unknown [id number] 2.840.1.184564.3.579.2 .1258 1962 Unknown [id number] 2.840.1.706026.3.579.2 .1258 1962 Unknown [id number] 2.840.1.614829.3.579.2 .1258 1962 Unknown [id number] 2.16840.1.767621.3.579.2 .1258 1962 Unknown [id number] 2.16840.1.361659.3.579.2 .1258 1962 Unknown [id number] 2.16840.1.948142.3.579.2 .1258 1962 Unknown [id number] 2.16.840.1.064317.3.579.2 .1259 1962 Unknown [id number] 2.16.840.1.466155.3.579.2 .9 1962 Unknown [id number] 2.16.840.1.123118.3.579.2 .9 1962 Unknown [id number] 2.16.840.1.039885.3.579.2 .9 1962 Unknown [id number] 2.16.840.1.283853.3.579.2 .9 1962 Unknown [id number] 2.16.840.1.600095.3.579.2 .1285 1962 Unknown [id number] 2.16.840.1.404411.3.579.2 .1285 1962 Unknown [id number] 2.16.840.1.712252.3.579.2 .1285 1962 Unknown [id number] 2.16.840.1.201128.3.579.2 .1285 1962 Unknown [id number] 2.16.840.1.354324.3.579.2 .1285 1962 Unknown [id number] 2.16.840.1.660825.3.579.2 .1285 1962 Unknown [id number] 2.16.840.1.188507.3.579.2 .1285 1962 Unknown [id number] 2.16.840.1.686991.3.579.2 .1285 1962 Unknown [id number] 2.16.840.1.234587.3.579.2 .1285 1962 Unknown [id number] 2.16.840.1.394017.3.579.2 .1285 1962 Unknown [id number] 2.16.840.1.030412.3.579.2 .128 1962 Unknown [id number] 2.16.840.1.443808.3.579.2 .128 1962 Unknown [id number] 2.16.840.1.067728.3.579.2 .1285 1962 Unknown [id number] 2.16.840.1.481179.3.579.2 .128 1962 Unknown [id number] 2.16840.1.888114.3.579.2 .1285 1962 Unknown [id number] 2.16.840.1.380766.3.579.2 .1285 1962 Unknown [id number] 2.840.1.253748.3.579.2 .1285 1962 Unknown [id number] 2.840.1.234339.3.579.2 .1285 1962 Unknown [id number] 2.840.1.807382.3.579.2 .1285 1962 Unknown [id number] 2.840.1.691746.3.579.2 .1285 1962 Unknown [id number] 2.840.1.392906.3.579.2 .1285 1962 Unknown [id number] 2.840.1.734248.3.579.2 .1285 1962 Unknown [id number] 2.840.1.541839.3.579.2 .128 1962 Unknown [id number] 2.840.1.096906.3.579.2 .1285 1962 Unknown [id number] 2.16840.1.218574.3.579.2 .1285 1962 Unknown [id number] 2.16840.1.768175.3.579.2 .1285 1962 Unknown [id number] 2.16840.1.716990.3.579.2 .1286 1962 Unknown [id number] 2..840.1.755287.3.579.2 .1286 1962 Unknown [id number] 2.16840.1.737244.3.579.2 .1286 1962 Unknown [id number] 2.16.840.1.882856.3.579.2 .1286 1959 Unknown [id number] Self-pay [phone] [id number] Unknown [id number] Unknown [id number] 2.16.840.1.244719.3.579.2 .531 Unknown [id number] 2..840.1.100257.3.579.2 .531 Social History Date Type Detail Facility Start: 02-18-2023 End: 06-01-2024 Tobacco smoking status MEIS Ex-smoker [facility] History of tobacco use Current smoker [facility] History of tobacco use Cigarette Smoker [facility] Start: 02-18-2023 Tobacco use and exposure Smokeless tobacco non-user [facility] Start: 03-03-2023 End: 10-04-2024 Alcohol intake Lifetime non-drinker (finding) [facility] Start: 03-03-2023 End: 09-05-2024 History of Social function [facility] Start: 03-03-2023 End: 09-05-2024 Tobacco use panel [facility] Start: 1960 Sex Assigned At Not on file [facility] How often to you hav e a drink containing alcohol? Never [facility] How many standard drinks containing alcohol do you have on a typical day? Patient does not drink [facility] Tobacco smoking stat us [facility] Unknown if ever smoked [facility] Work Phone: Start: 04-13-2024 End: 06-30-2024 Sex Female (finding) [facility] Start: 1960 Sex Assigned At Female F [facility] Goals Date Patient Goal Desired Activity /State Functional Status Date Assessment Result Facility 09-05-2024 Patient Health [facility] ionnaire 2 item (PHQ-2) [Reported] [facility] 09-05-2024 Total score [AUDIT-C] 0 09/06/19 1:22 PM EDT Vicki Beaulieu MA [facility] Clinical Notes 09-30-2023 to 10-07-2024 Telephone Encounter - Taniya Shakila - 10/07/2024 10:27 AM EDTTelephone Encounter - Taniya [facility] - 10/07/2024 10:27 AM EDTJr. Sonja Saleh, - 10/04/2024 9:30 AM EDT Note Date & Type Note Facility 10-07-2024 Telephone encount er Note R TKA Prosthetic loosening, [facility] 10/04/24 Patient was referred to Dr Forrester & he is not in her insurance network. She has a list of many providers in her network; however, she wanted to know if there was anyone else knew of that she could check into as she trusts his opinion? [phone] [facility] 10-07-2024 Miscellaneous Notes Formattin g of this note might be different from the original. R TKA Prosthetic loosening, [facility] 10/04/24 Patient was referred to Dr Forrester & he is not in her insurance network. She has a list of many providers in her network; however, she wanted to know if there was anyone else knew of that she could check into as she trusts his opinion? [phone] documented in this encounter [facility] 10-04-2024 History of Presen t illness Narrative Images from the original note were not included. HISTORY OF PRESENT ILLNESS: EST PT Phuong Randhawa is an 64 y.o. @ female. (EST PT) - RECHECK (R) KNEE -S/P (R) TKA 09/08/23 (~1YR 1MO) - HERE FOR BONE SCAN RESULTS 09/19/24 [facility] [address]ER [address] REYES STATES RELIEF SHE GETS IS TEMPORARY. XRAY RT KNEE TODAY [facility] 10/04/24 [facility], W/ [facility] 12/21/23, 10/14/[address] (R) KNEE 02/19/24 - DR. GUILLAUME NO MRI LABS 11/09/23 @ [facility] (CBC / SED RATE / CRP) S/P MDP 10/14/23 NO CORTISONE INJ BONE SCAN 09/19/24 [facility] FIN[facility] PT [facility] (POST-[facility]) S/P PAIN MGMT (DR. REYES) REFERRAL - ABLASION; TEMP RELIEF CONTINUES TO HAVE PAIN- PAIN WITH DRIVING- PAIN ABOVE KNEE CAP- PAIN CAN BE GLOBAL- + INSTABILITY- +STIFFNESS/TIGHTNESS-+SWELLING- WEARS SLEEVE - USES TENS UNIT 1/DAY; TEMP RELIEF - DIFFICULTY WITH STAIRS- PT CONTINUES TO ICE/ELEVATE- +NORCO PER DR MCLAUGHLIN HX OF OSTEOPENIA- TAKING CALCIUM AND VITAMIN K RAJNI: FALL BACKWARDS - WEAKNESS / DIFFICULTY WITH STANDING UP ~06/16/24 * RT ANKLE PAIN* EST PT RECHECK RT ANKLE- UNABLE TO HAVE MRI DONE DUE TO CLIPS IN HEAD XRAY [facility] 08/22/24 (CALLED TO HAVE XRAY PUSHED) NO MRI; UNABLE TO HAVE DUE TO CLIPS IN HEAD WEARS ANKLE BRACE + MOBIC LABS FOR GOUT 08/22/24 PT STATES ANKLE PAIN IS WORSE- WEARING BRACE-PAIN LATERAL ANKLE- PT STATES PAIN WRAPS AROUND UNDER ARCH - +SWELLING - +MOBIC/NORCO ALLERGIES: Allergies Allergen Reactions Bee Venom Anaphylaxis Sulfa Antibiotics Swelling and Rash Erythromycin Rash Sulfamethoxazole-Trimethoprim Rash HOME MEDICATIONS: Current Outpatient Medications Medication Instructions amitriptyline (Elavil) 50 MG tablet TAKE 1 TABLET BY MOUTH NIGHTLY take with 75 MG tablet amitriptyline (Elavil) 75 MG tablet 1 tablet, Nightly cyclobenzaprine (FLEXERIL) 10 mg, Oral, 3 times daily PRN diazePAM (VALIUM) 10 mg, 3 times daily PRN EPINEPHrine (Epipen) 0.3 MG/0.3ML injection syringe INJECT 1 (ONE) pen NEEDED Hibiclens 4 % solution APPLY TO THE AFFECTED AREA(S) topically for a 1 time dose the morning OF surgery meloxicam (MOBIC) 15 mg, Oral, Daily omeprazole (PRILOSEC) 40 mg, Oral, 2 times daily oxybutynin XL (Ditropan-XL) 15 MG 24 hr tablet TAKE 1 TABLET BY MOUTH EVERY DAY; DO NOT CRUSH, CHEW, OR SPLIT phentermine (ADIPEX-P) 37.5 mg, Oral, Daily before breakfast Rexulti 3 MG tablet 1 tablet, Every morning sucralfate (CARAFATE) 1 g, Oral, [...] with possible nerve entrapment in scar tissue. No improvement From last visit Palpation Right Right knee palpation is unremarkable. [...] to calculate BMI. Tobacco Use: Medium Risk (10/04/2024) Patient History Smoking Tobacco Use: Former Smokeless Tobacco Use: Never Passive Exposure: Not on file Alcohol Use: Not At Risk (09/05/2024) AUDIT-C Frequency of Alcohol Consumption: Never Average Number of Drinks: Patient does not drink Frequency of Binge Drinking: Never IMAGING: XR knee 1 or 2 views right [...] arthroplasty. Procedures Orders Placed This Encounter Procedures XR knee 1 or 2 views right Reason for exam:: PAIN Ambulatory referral to Podiatry EVAL AND TREAT RT ANKLE PAIN. NEW FAX NUMBER FOR DR HENRY [phone] Standing Status: Future Expected Date: 10/04/2024 Expiration Date: 04/06/2025 Referral Priority: Routine Referral Type: Consultation Referral Reason: Consult and Treat Referred to Provider: Cristino Henry MD Requested Specialty: Podiatry Number of Visits Requested: 1 Ambulatory referral to Orthopaedic Surgery EVAL AND TREAT RT KNEE PROSTHETIC LOOSENING. BONE SCAN AT [facility] 09/19/24. RT TKA DOS 09/08/23. Standing Status: Future Expected Date: 10/04/2024 Expiration Date: 04/06/2025 Referral Priority: Routine Referral Type: Consultation Referral Reason: Consult and Treat Referred to Provider: Parth Forrester MD Requested Specialty: Orthopaedic Surgery Number of Visits Requested: 1 ASSESSMENT: ICD-10-CM 1. Acute pain of right knee M25.561 XR knee 1 or 2 views right 2. History of right knee joint replacement Z96.651 3. 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 Tendonitis of ankle, right M77.51 Ambulatory referral to Podiatry 5. Right ankle pain, unspecified chronicity M25.571 PLAN: We have discussed her case with her at length and her daughter on the phone El. We recommended Dr. Forrester or Dr Charles Kaplan for prosthetic loosening of tibial component. We recommended Dr. Henry for chronic right ankle pain. We'll see her back on a when necessary basis. She will go to Dr. Forrester's office with a copy of her bone scan. Questions answered in laymen terms at the bedside. The diagnosis, home exercise plan and any ongoing restrictions/ recommendations reviewed. If unable to be reached in office, I recommend evaluation at nearest Emergency Room if any symptoms worsened or new symptoms develop for requiring urgent evaluation. documented in this encounter [facility] 09-23-2024 Telephone encount er Note R ankle pain, MRI of R ankle was ordered Per Beata at [facility] MRI Dept, patient has clips in her head they were put in over 10 years ago and they were unable to complete the MRI Please advise next step [facility] 09-23-2024 Miscellaneous Notes Formattin g of this note might be different from the original. R ankle pain, MRI of R ankle was ordered Per Beata at [facility] MRI Dept, patient has clips in her head they were put in over 10 years ago and they were unable to complete the MRI Please advise next step documented in this encounter [facility] 09-22-2024 History of Presen t illness Narrative [...] (BMI) of 37.0 to 37.9 in adult ([facility]) Patient doing well with adipex and lost [...] (BMI) of 37.0 to 37.9 in adult ([facility]) Patient doing well with adipex and lost [...] 37.5 MG tablet documented in this encounter [facility] 09-06-2024 History of Presen t illness Narrative [...] DR. GUILLAUME NO MRI LABS 11/09/23 @ [facility] (CBC / SED RATE / CRP) S/P MDP 10/14/23 NO CORTISONE INJ FINISHED PT @[facility] (POST-OP) S/P PAIN MGMT (DR. REYES) [...] PAIN. *NEW PROBLEM* RT ANKLE PAIN XRAY [facility] 08/22/24 WEARS ANKLE BRACE + MOBIC LABS FOR GOUT 08/22/[address] MCLAUGHLIN FOR ANKLE PAIN, XRAYS DONE AT [facility], WEARS ANKLE BRACE, TAKING MOBIC. NOT GETTING [...] time dose the morning OF surgery HYDROcodone-acetaminophen ([facility]) 5-325 MG tablet 1 tablet, Oral, 4 [...] requiring urgent evaluation. documented in this encounter [facility] 09-05-2024 History of Presen t illness Narrative Images from the original note were not included. Major Gallardo DO Obstetrics and Gynecology Phuong Randhawa 1960 09/05/24 [id number] Yearly Wellness Exam Chief Complaint Patient presents with Gynecologic Exam LMP: 2005 HRT: None Last pap 09-01-23 [facility], HPV pos. Last mammogram 09-07-23 [facility] [place]. Denies breast, urinary, or bowel concerns. Visit [...] time dose the morning OF surgery HYDROcodone-acetaminophen ([facility]) 5-325 MG tablet Take 1 tablet by [...] costovertebral angle tenderness, no obvious scoliosis/kyphosis. 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 documented in this encounter [facility] 08-22-2024 History of Presen t illness Narrative [...] (BMI) of 37.0 to 37.9 in adult ([facility]) Patient overweight and difficult time losing weight. [...] and use norco PRN. Relevant Medications HYDROcodone-acetaminophen ([facility]) 5-325 MG tablet Primary insomnia Sleeping well with medication and continue. Seasonal allergic rhinitis due to pollen Symptoms controlled with medication and continue. Class 2 severe obesity due to excess calories with serious comorbidity and body mass index (BMI) of 37.0 to 37.9 in adult ([facility]) Patient overweight and difficult time losing weight. [...] 2 views right documented in this encounter [facility] 06-29-2024 History of Presen t illness Narrative [...] MDP 10/14/23 NO CORTISONE INJ FINISHED PT @[facility] (POST-OP) S/P PAIN MGMT (DR. REYES) [...] requiring urgent evaluation. documented in this encounter [facility] 04-13-2024 Evaluation note Diagnosis Onset Date Resolution Other chronic pain acute Februa 2024 1:02pm Primary osteoarthritis of right knee acute April 13, 025 1:02pm [facility] Work Phone: 1(354) 813-437802-26-2025 Evaluation note* Diagnosis Onset Date Resolution Status Admit Date Other chronic pain acute Febr2024 1:02pm Primary osteoarthritis of ri ght knee acute April 13 025 1:02pm Other chronic pain acute May 23, 2024 12:13pm Primary osteoarthritis of ri ght knee acute May 23, 2024 12:13pm [facility] Work Phone: 1(464) 258-637502-26-2025 Evaluation note* Diagnosis Onset Date Resolution Status [...] knee acute June 20, 2024 1: 35pm [facility] Work Phone: 1(559) 858-246902-26-2025 Evaluation note* Diagnosis Onset Date Resolution Status Admit Date Other chronic pain acute Februa 2024 1:02pm Primary osteoarthritis of ri ght knee acute April 13, 025 1:02pm Other chronic pain acute May 23, 2024 12:13pm Primary osteoarthritis of ri ght knee acute May 23, 2024 12:13pm Myofascial muscle pain acute Ma y 2024 1:35pm Other chronic pain acute June 1:35pm Primary osteoarthritis of ri ght knee acute June 20, 2024 1: 35pm Myofascial muscle pain acute Ma y 2024 2:03pm Other chronic pain acute June 302024 2:03pm [facility] Work Phone: 1(884) 437-793702-19-2025 History of Present illness Narrative* Sonja Saleh, DO - 04/06/2024 9:00 AM [...] for requiring urgent evaluation. documented in this encounterHawthorn Children's Psychiatric [id number] Telephone encounter Note* Telephone Encounter - KIRSTIE Rehman - 03/29/2024 6:[address] Saleh... her Last MDP was on 03/01/24, I loaded another medrol dose pack if you want to send in... [facility] Work Phone: 1(833) 367-721102-11-2025 Miscellaneous Notes* Telephone Encounter - KIRSTIE Rehman [...] call her in a MDP [facility] documented in this encounterHawthorn Children's Psychiatric [id number] Telephone encounter Note* Telephone Encounter - Beata Rogers - 03/29/2024 3:21 PM EST error [facility] [id number] Miscellaneous Notes* Telephone Encounter - Beataher Rogers - 03/29/2024 3:21 PM EST error documented in this encounterHawthorn Children's Psychiatric [id number] Telephone encounter Note* Telephone Encounter - Beataher Rogers - 03/29/2024 2:59 PM EST Phuong called and said that she is having swelling in her RT TKA said that she was suppose to call and let us know so that Dr. Saleh can call her in a MDP [facility] [id number] Telephone encounter Note* Telephone Encounter - KIRSTIE Rehman - 03/01/2024 12:01 PM EST Rx loaded.. Dr. Saleh, can you send if you agree [facility] [id number] Miscellaneous Notes* Telephone Encounter - KIRSTIE Rehman - 03/01/2024 12:01 PM EST Rx loaded.. Dr. Saleh, can you send if you agree * Telephone Encounter - Genet Eagle - 03/01/2024 11:29 AM EST Patient called stating her knee is swollen. She was told that when this happens a MDP packet can besent over to [facility] [place]. documented in this encounterHawthorn Children's Psychiatric [id number] Telephone encounter Note* Telephone Encounter - Genet Eagle - 03/01/2024 11:29 AM EST Patient called stating her knee is swollen. She was told that when this happens a MDP packet can besent over to [facility] in [place]. [facility] [id number] History of Present illness Narrative* Terry Mclaughlin MD - 02/24/2024 1:46 PM ESTAssociated Problem(s): Class 2 severe obesity due to excess calories with serious comorbidity and body mass index (BMI) of 36.0 to 36.9 in adult (CMS/HCC) Weight loss indicated. * Terry Mclaughlin MD [...] and use norco PRN. Relevant Medications HYDROcodone-acetaminophen ([facility]) 5-325 MG tablet cyclobenzaprine (Flexeril) 10 MG [...] Advised not to smoke. documented in this encounterHawthorn Children's Psychiatric [id number] Telephone encounter Note* Telephone Encounter - Terry Mclaughlin MD - 02/05/2024 9:50 AM EST [facility] [id number] Miscellaneous Notes* Telephone Encounter - Terry Mclaughlin MD - 02/05/2024 9:50 AM EST documented in this encounterHawthorn Children's Psychiatric [id number] History of Present illness Narrative* Jr. Sonja [...] S/P MDP 10/14/23 FINISHED PHYSICAL THERAPY @ [facility] ; POST-OP NO PAIN MGMT [...] for requiring urgent evaluation. documented in this encounterHawthorn Children's Psychiatric [id number] History of Present illness Narrative* Apolonia Solis, ARRT - 01/06/2024 10:00 AM EST Images from [...] Tobacco Use: Medium Risk (12/29/2023) [facility] History Smoking Tobacco Use: Former Smokeless [...] ROM. Sonja Saleh D.O. documented in this encounterHawthorn Children's Psychiatric [id number] Telephone encounter Note* Telephone Encounter - Kevin Gómez NP - 12/22/2023 11:41 AM EST Called and discussed with patient. 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 She will call back with any issues. [facility] Work Phone: 1(801) 133-372011-05-2024 Miscellaneous Notes* Telephone Encounter - Kevin Gómez [...] brace her right knee? documented in this encounterHawthorn Children's Psychiatric [id number] Telephone encounter Note* Telephone Encounter - Mei Alba - 12/22/2023 10:08 AM EST Patient called asking if she should still wear her brace her right knee? [facility] [id number] History of Present illness Narrative* Jr. Sonja Saleh DO - 12/21/2023 1:45 PM EST Images from [...] time dose the morning OF surgery HYDROcodone-acetaminophen ([facility]) 5-325 MG tablet 1 tablet, Oral, 4 [...] scribe for Dr. Saleh/isidoro, PLAN: We have discussed (R) knee xrays [...] time. Sonja Saleh D.O. documented in this encounterHawthorn Children's Psychiatric [id number] History of Present illness Narrative* Tabatha Onofre, PT - 12/16/2023 1:00 PM EDT [...] time: Heels apart = 0. Gait score: 12. Total Score = Balance + Gait 28. Tinetti tool score: < = 18 High. [...] AD with supervision, step to gait pattern. Hand Drawer In Helper Goals Goal 1 : Patient will demonstrate [...] doing well this date. documented in this encounterHawthorn Children's Psychiatric [id number] History of Present illness Narrative* Tabatha Onofre, PT - 12/03/2023 1:00 PM EDT Physical [...] AD with supervision, step to gait pattern. Hand Drawer In Helper Goals Goal 1 : Patient will demonstrate [...] doing well this date. documented in this encounterHawthorn Children's Psychiatric [id number] Telephone encounter Note* Telephone Encounter - Kevin Gómez NP - 11/30/2023 1:09 PM EDT That's fine, we can provide her a note with those restrictions. [facility] Work Phone: 1(909) 212-275410-14-2024 Miscellaneous Notes* Telephone Encounter - Kevin Gómez [...] 2hrs for 10 min documented in this encounterHawthorn Children's Psychiatric [id number] Telephone encounter Note* Telephone Encounter - Mei Alba - 11/30/2023 12:59 PM EDT Patient called asking for a work note stating she is going back to work today. She would like to beable to sit every 2hrs for 10 min [facility] [id number] History of Present illness Narrative* Jr. Sonja [...] Consult and Treat Referred to Provider: Tabatha Onofre, PT Requested Specialty: Physical Therapy Number of [...] I am acting as scribe for Dr. Saleh/[facility], PLAN: we have reviewed prior (R) knee [...] she is planning on having done todayat [facility]. Sonja Saleh D.O. documented in this encounterHawthorn Children's Psychiatric [id number] History of Present illness Narrative* Terry Mclaughlin [...] MG 24 hr tablet documented in this encounterHawthorn Children's Psychiatric HospitalNtljsaezih36-46-6102 Telephone encounter Note* Telephone Encounter - Chaparrita Watts - 11/13/2023 11:[address] Delfino Juarez has put PT on-hold; if a call is received per patient notify to contact Dr. Saleh's office. [facility] [id number] Miscellaneous Notes* Telephone Encounter - Chaparrita Watts - 11/13/2023 11:[address] Una Stepanic has put PT on-hold; if a call is received per patient notify to contact Dr. Saleh's office. * Telephone Encounter - Chaparrita Watts - 11/12/2023 1:51 PM EDT 6 visits out to 01/04/24 authorized. documented in this encounterHawthorn Children's Psychiatric [id number] Telephone encounter Note* Telephone Encounter - Chaparrita Watts - 11/12/2023 1:51 PM EDT 6 visits out to 01/04/24 authorized. [facility] [id number] Telephone encounter Note* Telephone Encounter - Mei [...] would like some kind of relief . [facility] [id number] Miscellaneous Notes* Telephone Encounter - Mei Alba [...] kind of relief . documented in this [facility]09-23-2024 History of Present illness Narrative* Jr. Sonja Saleh, - 11/09/2023 2:00 PM EDT Images from [...] 10/14/23 EPIC MDP 10/14/23 PT [facility] PT NOTES PAIN SINCE RETURNING TO WORK- [...] strength / ROM and discuss lab results ([facility]). Sonja Saleh D.O. documented in this [facility]09-13-2024 Telephone encounter Note* Telephone Encounter - Mei Alba - 10/30/2023 10:31 AM EDT Patient called stating she tried to go back to work on 10/26/2023 and was not able to make it the four hours that stats in her chart for going back to work. She didn't work 10/27/2023 and 10/28/2023 can she have a work note for those days/ [facility] [id number] Miscellaneous Notes* Telephone Encounter - Mei Alba - 10/30/2023 10:31 AM EDT Patient called stating she tried to go back to work on 10/26/2023 and was not able to make it the four hours that stats in her chart for going back to work. She didn't work 10/27/2023 and 10/28/2023 can she have a work note for those days/ documented in this [facility]09-11-2024 History of Present illness Narrative* KIRSTIE [...] 1. S/P TKR (total knee replacement), right Z96.657 PLAN: Exam is benign, +tenderness superior quad [...] for requiring urgent evaluation. documented in this encounterHawthorn Children's Psychiatric [id number] History of Present illness Narrative* KIRSTIE Rehman [...] for requiring urgent evaluation. documented in this encounterHawthorn Children's Psychiatric [id number] Telephone encounter Note* Telephone Encounter - Mei Alba - 10/12/2023 11:42 AM EDT Patient calling to see if she can have a refill on her Percocet? Says she is still in a lot of pain. [facility] HospitalYuibzwilud18-44-9600 Miscellaneous Notes* Telephone Encounter - Mei Alba - 10/12/2023 11:42 AM EDT Patient calling to see if she can have a refill on her Percocet? Says she is still in a lot of pain. documented in this [facility]08-25-2024 Telephone encounter Note* Telephone Encounter - KIRSTIE Rehman - 10/11/2023 8:29 PM EDT Pt Should call for refill if needed. [facility] Work Phone: [phone]) 330-600808-25-2024 Miscellaneous Notes* Telephone Encounter - KIRSTIE Rehman - 10/11/2023 8:29 PM EDT Pt Should call for refill if needed. documented in this [facility]08-14-2024 Telephone encounter Note* Telephone Encounter - Anamaria Hernandez - 09/30/2023 1:40 PM EDT Called pt and left vm to call the office [facility] [id number] Miscellaneous Notes* Telephone Encounter - Anamaria Hernandez [...] refill of Percocet called in to [facility] in [place]. She is not completely out , but does not want to run out. Allergies: in chart Pt had RT TKA 09/08/23 Her call back [phone] documented in this encounterHawthorn Children's Psychiatric HospitalUlczyemcjf04-33-6684 Telephone encounter Note* Telephone Encounter - KIRSTIE Rehman - 09/30/2023 1:07 PM EDT Oarrs reviewed. RX sent to pharmacy. Please notify pt. Take least effective dose for pain control. [facility] HospitalWppngasehd70-06-1119 Telephone encounter Note* Telephone Encounter - Anamaria Hernandez - 09/30/2023 9:50 AM EDT Pt called requesting refill of Percocet called in to [facility] in [place]. She is not completely out , but does not want to run out. Allergies: in chart Pt had RT TKA 09/08/23 Her call back [phone] [facility] HealthcareEvaluation note* Diagnosis Gastroesophageal reflux disease without esophagitis- Primary Esophageal reflux Chronic constipation Unspecified constipation History of allergic reaction documented in this encounter [facility]* Diagnosis Lightheaded- Primary Dizziness and [...] exam Routine general medical examination at a [facility] facility Preoperative clearance- Primary Unspecified pre-operative [...] exam Routine general medical examination at a [facility] Preoperative clearance- Primary Unspecified pre-operative examination Primary [...] of left knee documented in this encounter [facility] HealthcareEvaluation note* Diagnosis Lumbar spondylosis- Primary Lumbosacral spondylosis without myelopathy Primary insomnia Persistent disorder of initiating or maintaining sleep Gastroesophageal reflux disease without esophagitis Esophageal reflux Seasonal allergic rhinitis due to pollen Obesity (BMI 30-39.9) Metabolic syndrome Dysmetabolic Syndrome X Annual physical exam Routine general medical examination at a [facility] Preoperative clearance- Primary Unspecified pre-operative examination Primary [...] knee joint, right documented in this encounter [facility] HealthcareEvaluation note* Diagnosis Lumbar spondylosis- Primary Lumbosacral spondylosis without myelopathy Primary insomnia Persistent disorder of initiating or maintaining sleep Gastroesophageal reflux disease without esophagitis Esophageal reflux Seasonal allergic rhinitis due to pollen Obesity (BMI 30-39.9) Metabolic syndrome Dysmetabolic Syndrome X Annual physical exam Routine general medical examination at a [facility] facility Preoperative clearance- Primary Unspecified pre-operative examination [...] of right knee documented in this encounter [facility] HealthcareEvaluation note* Diagnosis Lumbar spondylosis- Primary Lumbosacral [...] knee joint replacement documented in this encounter [facility] HealthcareEvaluation note* Diagnosis Lumbar spondylosis- Primary [...] adult Insomnia, unspecified documented in this encounter [facility] [...] of left knee documented in this encounter [facility] HealthcareEvaluation note* Diagnosis Lumbar spondylosis- Primary Lumbosacral spondylosis without myelopathy Primary insomnia Persistent disorder of initiating or maintaining sleep Gastroesophageal reflux disease without esophagitis Esophageal reflux Seasonal allergic rhinitis due to pollen Obesity (BMI 30-39.9) Metabolic syndrome Dysmetabolic Syndrome X Annual physical exam Routine general medical examination at a [facility] Preoperative clearance- Primary Unspecified pre-operative examination Primary [...] Primary Routine general medical examination at a [facility] facility Lumbar spondylosis Lumbosacral spondylosis without myelopathy Primary osteoarthritis of right knee MDD (major depressive disorder), recurrent episode, moderate (CMS/HCC) Overflow incontinence of urine Overflow incontinence Class 2 severe obesity due to excess calories with serious comorbidity and body mass index (BMI) of 36.0 to 36.9 in adult (CMS/HCC) documented in this encounter [facility] HealthcareEvaluation note* Diagnosis Lumbar spondylosis- Primary Lumbosacral spondylosis without myelopathy Primary insomnia Persistent disorder of initiating or maintaining sleep Gastroesophageal reflux disease without esophagitis Esophageal reflux Seasonal allergic rhinitis due to pollen Obesity (BMI 30-39.9) Metabolic syndrome Dysmetabolic Syndrome X Annual physical exam Routine general medical examination at a [facility] facility Preoperative clearance- Primary Unspecified pre-operative examination [...] right knee- Primary documented in this encounter [facility] HealthcareEvaluation note* Diagnosis Lumbar spondylosis- Primary [...] right knee- Primary documented in this encounter [facility] HealthcareEvaluation note* Diagnosis Lumbar spondylosis- Primary Lumbosacral [...] Primary Routine general medical examination at a [facility] facility Lumbar spondylosis Lumbosacral spondylosis [...] of right knee documented in this encounter [facility] HealthcareEvaluation note* Diagnosis Onset Date Resolution Status Admit Date Other chronic pain acute 2024 1:02pm Primary osteoarthritis of ri ght knee acute April 13 1:02pm [facility] Work Phone: Evaluation note* Diagnosis Lumbar spondylosis- [...] knee replacement), right documented in this encounter [facility] HealthcareEvaluation note* Diagnosis Lumbar spondylosis- Primary Lumbosacral spondylosis without myelopathy Primary insomnia Persistent disorder of initiating or maintaining sleep Gastroesophageal reflux disease without esophagitis Esophageal reflux Seasonal allergic rhinitis due to pollen Obesity (BMI 30-39.9) Metabolic syndrome Dysmetabolic Syndrome X Annual physical exam Routine general medical examination at a [facility] facility Preoperative clearance- Primary Unspecified pre-operative [...] (CMS/HCC) Insomnia, unspecified documented in this encounter [facility] HealthcareEvaluation note* Diagnosis Lumbar spondylosis- Primary [...] spondylosis without myelopathy documented in this encounter [facility] HealthcareEvaluation note* Diagnosis Lumbar spondylosis- Primary [...] knee joint replacement documented in this encounter [facility] HealthcareEvaluation note* Diagnosis Lumbar spondylosis- Primary Lumbosacral [...] (BMI) of 36.0 to 36.9 in adult (CMS-HCC) Lumbar spondylosis- Primary Lumbosacral spondylosis without myelopathy Primary osteoarthritis of right knee Acute right ankle pain Primary insomnia Persistent disorder of initiating or maintaining sleep Seasonal allergic rhinitis due to pollen Class 2 severe obesity due to excess calories with serious comorbidity and body mass index (BMI) of 37.0 to 37.9 in adult ([facility]) documented in this encounter [facility] HealthcareEvaluation note* Diagnosis Lumbar spondylosis- Primary [...] (BMI) of 36.0 to 36.9 in adult ([facility]) Lumbar spondylosis- Primary Lumbosacral spondylosis without myelopathy Primary osteoarthritis of right knee Acute right ankle pain Primary insomnia Persistent disorder of initiating or maintaining sleep Seasonal allergic rhinitis due to pollen Class 2 severe obesity due to excess calories with serious comorbidity and body mass index (BMI) of 37.0 to 37.9 in adult ([facility]) Encounter for gynecological examination without abnormal finding- Primary Encounter for Papanicolaou smear of cervix Breast cancer screening by mammogram Osteopenia, unspecified location Screening for osteoporosis Special screening for osteoporosis Asymptomatic menopausal state documented in this encounter [facility] HealthcareEvaluation note* Diagnosis Lumbar spondylosis- Primary [...] (BMI) of 36.0 to 36.9 in adult (CMS-HCC) Lumbar spondylosis- Primary Lumbosacral spondylosis without myelopathy Primary osteoarthritis of right knee Acute right ankle pain Primary insomnia Persistent disorder of initiating or maintaining sleep Seasonal allergic rhinitis due to pollen Class 2 severe obesity due to excess calories with serious comorbidity and body mass index (BMI) of 37.0 to 37.9 in adult (CMS-HCC) Right ankle pain, unspecified chronicity Tendonitis of ankle, right History of right knee joint replacement Acute pain of right knee documented in this encounter [facility] HealthcareEvaluation note* Diagnosis Lumbar spondylosis- Primary [...] (BMI) of 36.0 to 36.9 in adult ([facility]) Lumbar spondylosis- Primary Lumbosacral spondylosis without myelopathy Primary osteoarthritis of right knee Acute right ankle pain Primary insomnia Persistent disorder of initiating or maintaining sleep Seasonal allergic rhinitis due to pollen Class 2 severe obesity due to excess calories with serious comorbidity and body mass index (BMI) of 37.0 to 37.9 in adult ([facility]) Lumbar spondylosis- Primary Lumbosacral spondylosis without myelopathy Primary osteoarthritis of right knee Postoperative pain of right knee Class 2 severe obesity due to excess calories with serious comorbidity and body mass index (BMI) of 37.0 to 37.9 in adult ([facility]) documented in this encounter [facility]* [...] (BMI) of 36.0 to 36.9 in adult ([facility]) Lumbar spondylosis- Primary Lumbosacral spondylosis without myelopathy Primary osteoarthritis of right knee Acute right ankle pain Primary insomnia Persistent disorder of initiating or maintaining sleep Seasonal allergic rhinitis due to pollen Class 2 severe obesity due to excess calories with serious comorbidity and body mass index (BMI) of 37.0 to 37.9 in adult ([facility]) Lumbar spondylosis- Primary Lumbosacral spondylosis without myelopathy Primary osteoarthritis of right knee Postoperative pain of right knee Class 2 severe obesity due to excess calories with serious comorbidity and body mass index (BMI) of 37.0 to 37.9 in adult ([facility]) Acute pain of right knee History of right knee joint replacement Prosthetic joint loosening, initial encounter Tendonitis of ankle, right Right ankle pain, unspecified chronicity documented in this encounter [facility] for referral (narrative)* Consultation (Routine) - Closed Specialty Diagnoses / Procedures Referred By Benjy rondon Referred To Contact Physical Therapy Diagnoses S/P TKR (total knee replacement), right Primary osteoarthritis of right knee Procedures NC OFFICE/OUTPATIENT NEW HIGH MDM 60 MINUTES Jr. Sonja Saleh, DO [address] [facility] [address] [place] [address] Tabatha Onofre, PT [address] [facility] [address] [place] [address] Referral ID Status Reason Start Date Expiration Date V isits Requested Visits Authorized [id number] Closed Consult and Treat 11/23/2023 05/21/2024 1 1 [facility] Narrative* Rehabilitation - Outpatient (Routine) - Authorized Specialty Diagnoses / Procedures Referred By Benjy rondon Referred To Contact Physical Therapy Diagnoses Presence of artificial knee joint, right Procedures NC MANUAL THERAPY TQS 1/> REGIONS EACH 15 MINUTES NC THER PX 1/> AREAS EACH 15 MIN NEUROMUSC REEDUCA NC THERAPEUTIC PX 1/> AREAS EACH 15 MIN EXERCISES PHYS/OCC THERAPY Jr. Sonja Shell, DO [address] [place] [address] Phone: tel: fax: [facility] [address] [facility] [address] [place] [address] Phone: tel: fax: Referral ID Status Reason Start Date Expiration Date Visits Requested Visits Authorized [id number] Authorized Specialty Services Required 11/06/2023 01/04/2024 8 8 [facility] Summary Purpose Family History No Family [...] Referred By Benjy rondon Referred To Contact Diagnoses Primary osteoarthritis of left knee Terry Mclaughlin MD [address] [facility] [place] [address] Referral ID Status Reason Start Date Expiration Date Visits Re quested Visits Authorized [id number] Closed 1 1 Chief Complaint and Reason [...] Primary osteoarthritis of right knee Feb ruary 26th, 2025 1:02pm Other chronic pain May 23, 2024 [...] and content) DATE CREATED AUTHOR 06/20/2022 [facility] DATE CREATED AUTHOR AUTHOR'S ORGANIZ ATION 06/21/2024 [facility] DATE CREATED AUTHOR AUTHOR'S ORGANIZ ATION 09/21/2024 [facility] DATE CREATED AUTHOR AUTHOR'S ORGANIZ ATION 10/10/2024 [facility] EPIC DATE CREATED AUTHOR AUTHOR'S ORGANIZ ATION 10/25/2024 [facility] Reason for Visit (unrecogniz ed section and [...] Pain Specialty Diagnoses / Procedures Referred By Benjy t Referred To Contact Physical Therapy Diagnoses Presence of artificial knee joint, right Procedures NC MANUAL THERAPY TQS 1/> REGIONS EACH 15 MINUTES NC THER PX 1/> AREAS EACH 15 MIN NEUROMUSC REEDUCA NC THERAPEUTIC PX 1/> AREAS EACH 15 MIN EXERCISES PHYS/OCC THERAPY Jr. Sonja Shell, DO [address] [facility] [address] [place] [address] [facility] [address] [facility] [address] [place] [address] Referral ID Status Reason Start Date Expiration Date Visits Requested Visits Authorized [id number] Authorized Specialty Services Required 11/06/2023 01/04/2024 8 8 Reason Onset Date Comments Med Refill 12/14/2023 Reason Comments Pain Reason Onset Date Comments Med Refill 01/18/2024 Referral ID Status Reason Start Date Expiration Date Visits Requested Visits Authorized [id number] Authorized Specialty Services Required 10/22/2023 12/07/2023 2 2 Reason Onset Date Comments refill 09/30/2023 Reason Onset Date Comments Med Refill 10/12/2023 Specialty Diagnoses / Procedures Referred By Contac t Referred To Contact Physical Therapy Diagnoses Presence of artificial knee joint, right Procedures NC OFFICE/OUTPATIENT NEW HIGH MDM 60 MINUTES Jr. Sonja Saleh, DO [address] [place] [address] [facility] [address] [place] [address] [place] [address] Referral ID Status Reason Start Date Expiration Date Visits Requested Visits Authorized [id number] Authorized Specialty Services Required 09/09/2023 12/07/2023 12 12 Referral ID Status Reason Start Date Expiration Date V isits Requested Visits Authorized [id number] Closed Specialty Services Required 09/09/2023 12/07/2023 12 [...] 09-01-23 LGSIL, HPV pos. Last mammogram 09-07-23 [facility].Denies breast, urinary, or bowel concerns. Reason Comments Follow-up Reason Comments Follow-up [facility] f/u UTI Possible uti Reason Onset Date Comments unable to complete mri 09/23/2024 Reason Onset Date Comments referral 10/07/2024 Reason Comments Pain Care Teams (unrecognized sec tion and content) Forensic Psychiatrist Relationship Specialty Start Date End Date Terry Mclaughlin MD PCP - General Cardiology 07/01/22 Forensic Psychiatrist Relationship Specialty Start Date End Date Terry Mclaughlin MD [address] [place] [phone] PCP - General Family Medicine 06/11/23 Forensic Psychiatrist Relationship Specialty Start Date End Date Terry Mclaughlin MD [address] [place] [phone] PCP - General Family Medicine 06/11/23 Forensic Psychiatrist Relationship Specialty Start Date End Date Terry Mclaughlin MD [address] [place] [address] PCP - General Family Medicine 06/11/23 Forensic Psychiatrist Relationship Specialty Start Date End Date Terry Mclaughlin MD [address] [place] [address] PCP - General Family Medicine 06/11/23 Terry Mclaughlin MD [address] [place] [phone] PCP - [facility] 10/18/23 Forensic Psychiatrist Relationship Specialty Start Date End Date Terry Mclaughlin MD [address] [place] [address] PCP - General Family Medicine 06/11/23 Terry Mclaughlin MD [address] [place] [address] PCP - [facility] [employer] 10/18/23 Forensic Psychiatrist Relationship Specialty Start Date End Date Terry Mclaughlin MD [address] [place] [address] PCP - General Family Medicine 06/11/23 Terry Mclaughlin MD [address] [place] [address] PCP - [facility] [employer] 10/18/23 Forensic Psychiatrist Relationship Specialty Start Date End Date Terry Mclaughlin MD [address] [place] [address] PCP - General Family Medicine 06/11/23 Terry Mclaughlin MD [address] [place] [address] PCP - [facility] [employer] 10/18/23 Forensic Psychiatrist Relationship Specialty Start Date End Date Terry Mclaughlin MD [address] [place] [address] PCP - General Family Medicine 06/11/23 Terry Mclaughlin MD [address] [place] [address] PCP - [facility] [employer] 10/18/23 Forensic Psychiatrist Relationship Specialty Start Date End Date Terry Mclaughlin MD [address] [place] [address] PCP - General Family Medicine 06/11/23 Terry Mclaughlin MD [address] [place] [address] PCP - [facility] [employer] 10/18/23 Forensic Psychiatrist Relationship Specialty Start Date End Date Terry Mclaughlin MD [address] [place] [address] PCP - General Family Medicine 06/11/23 Terry Mclaughlin MD [address] [place] [address] PCP - [facility] [employer] 10/18/23 Forensic Psychiatrist Relationship Specialty Start Date End Date Terry Mclaughlin MD [address] [place] [address] PCP - General Family Medicine 06/11/23 Terry Mclaughlin MD [address] [place] [address] PCP - [facility] [employer] 10/18/23 Forensic Psychiatrist Relationship Specialty Start Date End Date Terry Mclaughlin MD [address] [place] [address] PCP - General Family Medicine 06/11/23 Terry Mclaughlin MD [address] [place] [address] PCP - [facility] [employer] 10/18/23 Forensic Psychiatrist Relationship Specialty Start Date End Date Terry Mclaughlin MD [address] [place] [address] PCP - General Family Medicine 06/11/23 Terry Mclaughlin MD [address] [place] [address] PCP - [facility] [employer] 10/18/23 Forensic Psychiatrist Relationship Specialty Start Date End Date Terry Mclaughlin MD [address] [place] [address] PCP - General Family Medicine 06/11/23 Terry Mclaughlin MD [address] [place] [address] PCP - [employer] 10/18/23 Forensic Psychiatrist Relationship Specialty Start Date End Date Terry Mclaughlin MD [address] [place] [address] PCP - General Family Medicine 06/11/23 Terry Mclaughlin MD [address] [place] [address] PCP - [employer] 10/18/23 Forensic Psychiatrist Relationship Specialty Start Date End Date Terry Mclaughlin MD [address] [place] [phone] PCP - General Family Medicine 06/11/23 Terry Mclaughlin MD [address] [place] [address] PCP - [facility] [employer] 10/18/23 Forensic Psychiatrist Relationship Specialty Start Date End Date Terry Mclaughlin MD [address] [place] [address] PCP - General Family Medicine 06/11/23 Terry Mclaughlin MD [address] [place] [address] PCP - [facility] [employer] 10/18/23 Forensic Psychiatrist Relationship Specialty Start Date End Date Terry Mclaughlin MD [address] [place] [address] PCP - General Family Medicine 06/11/23 Terry Mclaughlin MD [address] [place] [address] PCP - [facility] [employer] 10/18/23 Forensic Psychiatrist Relationship Specialty Start Date End Date Terry Mclaughlin MD [address] [place] [address] PCP - General Family Medicine 06/11/23 Forensic Psychiatrist Relationship Specialty Start Date End Date Terry Mclaughlin MD [address] [place] [address] PCP - General Family Medicine 06/11/23 Forensic Psychiatrist Relationship Specialty Start Date End Date Terry Mclaughlin MD [address] [place] [address] PCP - General Family Medicine 06/11/23 Forensic Psychiatrist Relationship Specialty Start Date End Date Terry Mclaughlin MD [address] [place] [address] PCP - General Family Medicine 06/11/23 Terry Mclaughlin MD [address] [place] [address] PCP - [facility] 10/18/23 Forensic Psychiatrist Relationship Specialty Start Date End Date Terry Mclaughlin MD [address] [place] [address] PCP - General Family Medicine 06/11/23 Forensic Psychiatrist Relationship Specialty Start Date End Date Terry Mclaughlin MD [address] [place] [address] PCP - General Family Medicine 06/11/23 Forensic Psychiatrist Relationship Specialty Start Date End Date Terry Mclaughlin MD [address] [place] [address] PCP - General Family Medicine 06/11/23 Forensic Psychiatrist Relationship Specialty Start Date End Date Terry Mclaughlin MD [address] [place] [address] PCP - General Family Medicine 06/11/23 Forensic Psychiatrist Relationship Specialty Start Date End Date Terry Mclaughlin MD [address] [place] [address] PCP - General Family Medicine 06/11/23 Forensic Psychiatrist Relationship Specialty Start Date End Date Terry Mclaughlin MD [address] [place] [address] PCP - General Family Medicine 06/11/23 Forensic Psychiatrist Relationship Specialty Start Date End Date Terry Mclaughlin MD [address] [place] [address] PCP - General Family Medicine 06/11/23 Forensic Psychiatrist Relationship Specialty Start Date End Date Terry Mclaughlin MD [address] [place] [address] PCP - General Family Medicine 06/11/23 Forensic Psychiatrist Relationship Specialty Start Date End Date Terry Mclaughlin MD [address] [place] [address] PCP - General Family Medicine 06/11/23 Forensic Psychiatrist Relationship Specialty Start Date End Date Terry Mclaughlin MD [address] [place] [address] PCP - General Family Medicine 06/11/23 Forensic Psychiatrist Relationship Specialty Start Date End Date Terry Mclaughlin MD [address] [place] [address] PCP - General Family Medicine 06/11/23 Forensic Psychiatrist Relationship Specialty Start Date End Date Terry Mclaughlin MD [address] [place] [address] PCP - General Family Medicine 06/11/23 Terry Mclaughlin MD [address] [place] [address] PCP - [facility] [employer] 10/18/23 Forensic Psychiatrist Relationship Specialty Start Date End Date Terry Mclaughlin MD [address] [place] [address] PCP - General Family Medicine 06/11/23 Terry Mclaughlin MD [address] [place] [address] PCP - [facility] [employer] 10/18/23 Forensic Psychiatrist Relationship Specialty Start Date End Date Terry Mclaughlin MD [address] [place] [address] PCP - General Family Medicine 06/11/23 Terry Mclaughlin MD [address] [place] [address] PCP - [facility] [employer] 10/18/23 Forensic Psychiatrist Relationship Specialty Start Date End Date Terry Mclaughlin MD [address] [place] [address] PCP - General Family Medicine 06/11/23 Terry Mclaughlin MD [address] [place] [address] PCP - [employer] 10/18/23 Team Status: Active Member Role [...] April 13, 2024 End: April 13, 2024 Forensic Psychiatrist Relationship Specialty Start Date End Date Terry Mclaughlin MD [address] [place] [address] PCP - General Family Medicine 06/11/23 Terry Mclaughlin MD [address] [place] [address] PCP - [facility] 10/18/23 Team Status: Active Member Role Status [...] June 20, 2024 End: June 20, 2024 Forensic Psychiatrist Relationship Specialty Start Date End Date Terry Mclaughlin MD [address] [place] [address] PCP - General Family Medicine 06/11/23 Forensic Psychiatrist Relationship Specialty Start Date End Date Terry Mclaughlin MD [address] [place] [address] PCP - General Family Medicine 06/11/23 Team Status: Inactive Member Role Status Dates Terry Mclaughlin MD Primary Care Provider Active S tart: June 30, 2024 End: June 30, 2024 Luciano Reyes MD Attending Provider Active Sta rt: June 30, 2024 End: June 30, 2024 Forensic Psychiatrist Relationship Specialty Start Date End Date Terry Mclaughlin MD [address] [place] [address] PCP - General Family Medicine 06/11/23 Forensic Psychiatrist Relationship Specialty Start Date End Date Terry Mclaughlin MD [address] [place] [address] PCP - General Family Medicine 06/11/23 Forensic Psychiatrist Relationship Specialty Start Date End Date Terry Mclaughlin MD [address] [place] [address] PCP - General Family Medicine 06/11/23 Forensic Psychiatrist Relationship Specialty Start Date End Date Terry Mclaughlin MD [address] [place] [address] PCP - General Family Medicine 06/11/23 Forensic Psychiatrist Relationship Specialty Start Date End Date Terry Mclaughlin MD [address] [place] [address] PCP - General [facility] 06/11/23 Forensic Psychiatrist Relationship Specialty Start Date End Date Terry Mclaughlin MD [address] [place] [address] PCP - [facility] 06/11/23 Forensic Psychiatrist Relationship Specialty Start Date End Date Terry Mclaughlin MD [address] [place] [address] PCP - [facility] 06/11/23 Forensic Psychiatrist Relationship Specialty Start Date End Date Terry Mclaughlin MD [address] [place] [address] PCP - General [facility] 06/11/23 Forensic Psychiatrist Relationship Specialty Start Date End Date Terry Mclaughlin MD [address] [place] [address] PCP - [facility] 06/11/23 Goals (unrecognized section and content) Goals [...] BE BASED ON THE PRIMARY CLINICAL RECORDS. [employer] [facility]. provides no warranty or guarantee of the accuracy or completeness of information in this document.
[2024-11-01 11:32] LABS: Hematocrit 40.1 % (36.0-48.0); Hemoglobin 13.1 g/dL (12.0-16.0); Immature Granulocytes Abs Auto 0.04 10^3/uL (0.00-0.03); Immature Granulocytes Pct Auto 0.7 % (0.0-0.5); Lymphocytes Absolute Auto 0.9 10^3/uL (1.2-3.8); Mean Corpuscular HGB Conc 32.7 g/dL (29.9-35.2); Mean Corpuscular Hemoglobin 29.8 pg (26.7-34.0); Mean Corpuscular Volume 91.1 fL (81.0-99.0); Platelet Count 230 10^3/uL (150-450); Red Blood Count 4.40 10^6/uL (4.20-5.40); White Blood Count 5.8 10^3/uL (4.0-11.0)
[2024-11-01 12:15] LABS: Uric Acid 5.6 mg/dL (2.6-6.0)
[2024-11-02 14:11] LABS: Antinuclear Antibodies, IFA Negative (.)
== END 2024-11-01 10:59 | disposition home or self-care (01) ==
LOC: LAB 10:58
PROVIDERS: PCP Family Medicine
DX: M25.561 Pain in right knee (principal); Z96.651 Presence of right artificial knee joint
CPT/HCPCS: 36415; 81374; 84550; 85025; 85652; 86038; 86140; 86431; 86618

== ENCOUNTER 2024-11-24 15:38 | Outpatient (OUT) | payer BC, SELFPAY ==
--- OUTSIDE RECORDS SUMMARY | 2024-11-24 15:43 | XMS_ITS | CCD ---
Author Organization [facility] Care Team Providers Care Instructor Adjunct Surgical Technician Name Role Phone ARNOLDO, DR TERRY Hines [...] Admitting UnavailTerry Leung MD Primary Care Provider [phone] Terry Mclaughlin MD Primary Care Provider [phone] Terry Mclaughlin MD Unavailable Luciano Reyes MD Attending Provider [phone] Terry Mclaughlin MD Primary Care Provider [phone] Luciano Reyes Attending Unavailable Terry Mclaughlin Primary Care Unavailable Luciano Reyes Admitting Unavailable Luciano Reyes Attending Unavailable Terry Mclaughlin Primary Care Unavailable Luciano Reyes Admitting Unavailable Marlo Lewis MD Primary Care Provider [phone] LORRIE, JUAN MIGUEL Attending Unavailable LORRIE, JUAN MIGUEL Attending Unavailable LORRIE, JUAN MIGUEL Attending Unavailable ALFONSO, HENRIETTA J Attending Unavailable LORRIE, JUAN MIGUEL Attending Unavailable LORRIE, JUAN MIGUEL Attending Unavailable LARON WATTS Referring Unavailable ALFONSO, HENRIETTA J Attending Unavailable LORRIE, JUAN MIGUEL Attending Unavailable LORRIE, JUAN MIGUEL Attending Unavailable LORRIE, JUAN MIGUEL Attending Unavailable ALFONSO, HENRIETTA J Attending Unavailable LORRIE, JUAN MIGUEL Attending Unavailable LORRIE, JUAN MIGUEL Attending Unavailable ALFONSO, HENRIETTA J Attending Unavailable LORRIE, JUAN MIGUEL Attending Unavailable LORRIE, JUAN MIGUEL Attending Unavailable LORRIE, JUAN MIGUEL Attending Unavailable LORRIE, JUAN MIGUEL Attending Unavailable ALFONSO, HENRIETTA J Attending Unavailable ALFONSO, HENRIETTA J Referring Unavailable LORRIE, JUAN MIGUEL Attending Unavailable SONJA SALEH JR Attending Unavailabl e STEPSHERWIN RICHMOND, SONJA Ivory Referring Unavailabl e SONJA SALEH JR Attending Unavailabl e SONJA SALEH JR Referring Unavailabl e SONJA SALEH JR Attending Unavailabl e SONJA SALEH JR Referring Unavailabl Chase Peacock Attending Unavailable Chase Hogan Referring Unavailable LORRIE, JUAN MIGUEL Attending Unavailable LORRIE, JUAN MIGUEL Attending Unavailable LORRIE, JUAN MIGUEL Attending Unavailable JR. SALEH GEORGE C Attending Unavaila myrna SALEH JR., SONJA Ivory Attending Unavaila TERRY Davies Attending Unavailable MAJOR GALLARDO Attending Unavailable JR. DELFINO, SONJA Ivory Attending UnavailTERRY Rosario Attending Unavailable JR. SALEH GEORGE C Attending Unavaila UNA Hodge Attending Unavailable JR. SALEH GEORGE C Referring Unavaila UNA Hodge Attending Unavailable JR. SALEH GEORGE C Referring Unavaila TABATHA Caballero Attending Unavailable JR. SALEH GEORGE C Referring Unavaila UNA Hodge Attending Unavailable JR. DELFINO, SONJA Ivory Referring Unavaila ble JR. DELFINO, SONJA Ivory Attending Unavaila myrna SALEH JR., SONJA Ivory Referring Unavaila CHARLOTTE Irving Attending Unavailable AL GUTIERREZ Referring Unavailable UNA MAYNARD Attending Unavailable JR. DELFINO, SONJA Ivory Referring Unavaila TABATHA Caballero Attending Monica SALEH JR., SONJA Ivory Referring Marlon SALEH JR., SONJA Ivory Attending Marlon SALEH JR., SONJA Ivory Referring Marlon SALEH JR., SONJA Ivory Attending Marlon SALEH JR., SONJA Ivory Attending UnavailTERRY Rosario Attending Unavailable Allergies Allergy Classification Reported Allergen(s) Allergy Type Date of Onset Reaction(s) Facility (1 source) bee venom Drug allergy (disorder) 04-03-19 14 [facility] Repository (7 sources) Erythromycin Drug Allergy 04-03-19 14 rash [facility]ository (1 source) Sulfonamides (Antibiotic) Drug allergy (disorder) 04-03-19 14 [facility] Repository (20 sources) Erythromycin; Translations: [ERYTHROMYCIN] Drug Allergy 06-19-19 [facility] (20 sources) Honey bee venom Allergy to substance 08-30-19 23 Anaphylaxis [facility] (20 sources) Sulfamethoxazole / Trimethoprim Drug Allergy 07-17-19 23 [facility] (20 sources) Sulfonamides (Antibiotic) Drug Allergy 06-19-19 23 Swelling, Rash [facility] (7 sources) Sulfamethoxazole; Translations: [sulfamethoxazole] Drug Allergy 04-13-19 [facility] (9 sources) Sulfonamides (Antibiotic); Translations: [Sulfa (Sulfonamide Antibiotics)] Allergy to substance 06-19-19 [facility] (7 sources) Trimethoprim; Translations: [trimethoprim] Drug Allergy 04-13-19 [facility] (7 sources) venom-honey bee; Translations: [venom-honey bee] Allergy to substance 04-13-19 [facility] (1 source) Erythromycin Drug Allergy 05-24-19 [facility] Repository Medications Current Medications Medication Drug Class(es) [...] Discontinued Start: 03-16-2023 take 2 tablets by ne ut in the morning polycarbophil (FiberCon) 625 MG [...] times a day as needed. 06/12/2022 Active [id number] 0.3 ml EPINEPHrine 1 mg/ml auto-injector (20 [...] (Reorder) phentermine hydrochloride 37.5 mg oral tablet (19 sources) Sympathomimetic Amine Anorectic Start: 08-22-2024 End: 10-22-2024 take 37-37.9 tablets by mouth before mealtime phentermine (Adipex-P) 37.5 MG tablet Indications: Class 2 severe obesity due to excess calories with serious comorbidity and body mass index (BMI) of 37.0 to 37.9 in adult Take 1 tablet (37.5 mg) by mouth in the morning. Take before meals. 30 tablet 09/22/2024 Active predniSONE 50 mg oral tablet (4 [...] daily as needed for pain HYDROcodone-acetam inophen (Olympia) 5-325 MG tablet Indications: Lumbar spondylosis Take 1 tablet by mouth 4 (four) times a day as needed for moderate pain or severe pain for up to 15 days 60 tablet 08/22/2024 09/06/2024 Start: 05-31-2024 End: 06-15-2024 take 1 tablet by mouth four times daily as needed for pain HYDROcodone-acetaminophen ([place]) 5-325 MG tablet Indications: Lumbar spondylosis Take [...] times daily as needed for pain HYDROcodone-acetaminophen ([place]) 5-325 MG tablet Indications: Lumbar spondylosis Take 1 tablet by mouth 4 (four) times a day as needed for moderate pain or severe pain for up to 15 days 60 tablet 02/24/2024 03/10/2024 Active Start: 02-08-2024 End: 02-15-2024 take 1 tablet by mouth four times daily as needed for pain HYDROcodone-acetaminophen ([place]) 5-325 MG tablet Indications: Primary osteoarthritis of left knee Take 1 tablet by mouth 4 (four) times a day as needed for moderate pain or severe pain for up to 7 days 28 tablet 02/08/2024 02/15/2024 Active Start: 12-15-2023 End: 12-22-2023 take 1 tablet by mouth four times daily as needed for pain HYDROcodone-acetaminophen ([place]) 5-325 MG tablet Indications: Primary osteoarthritis of left knee Take 1 tablet by mouth 4 (four) times a day as needed for moderate pain or severe pain for up to 7 days 28 tablet 12/15/2023 12/22/2023 Start: 10-28-2023 End: 11-04-2023 take 1 tablet by mouth four times daily as needed for pain HYDROcodone-acetaminophen ([place]) 5-325 MG tablet Indications: Primary osteoarthritis of left knee Take 1 tablet by mouth 4 (four) times a day as needed for moderate pain or severe pain for up to 7 days 28 tablet 10/28/2023 11/04/2023 Active Start: 06-24-2022 take 1 tablet by bijan th four times daily as needed HYDROcodone-acetaminophen (Olympia) 5-325 MG tablet Take 1 tablet by [...] 08-29-2022 08-29-2022 Episodic Other non-traumatic joint disorders (19 sources) Acute ankle pain; Translations: [Pain in [...] (BMI) of 36.0 to 36.9 in adult ([facility])] Onset: 02-18-2023 02-24-2024 Chronic Other screening [...] current use of drug therapy; Translations: [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 Impression: Unremarkable right total knee arthroplasty. [facility] Radiology Study observation (narrative) [facility] XR SINUS 1 OR 2 VWSon [...] Mobley MD on 09/23/2024 2:14 PM Normal [facility] NM BONE SCAN THREE PHASEon 0 [...] Mcfadden MD on 09/19/2024 1:50 PM Normal [facility] ALL URIC ACIDon 08-22-2024 Urate [Mass/Vol] 5.7 mg/dL 2.6 - 6.0 mg/dL [facility] XR Ankle - right 2 Viewson 0 08-22-[address] [address] XRay Report Signed Patient: PHUONG RANDHAWA MR#: [id number] : 1960 Acct:[id number] Age/Sex: 63 / F ADM Date: 08/22/24 Loc: LAB Attending Dr: Terry Mclaughlin M.D. Ordering Physician: Terry Mclaughlin M.D. Date of Service: 08/22/24 Procedure(s): XR ankle RT 2V Accession Number(s): [id number] cc: Terry Mclaughlin M.D. The [place] [address] Patient Name: PHUONG RANDHAWA MRN: [facility]:[id number] date: 1960 Sex: F Assigned Patient Location: LAB Current Patient Location: LAB Accession/Order Number: [id number] Exam Date: 08/22/2024 12:04 Report Date: 08/22/2024 [...] Robledo M.D. 08/22/2024 12:06 PM Dictation Location: [place] [address] Electronically authenticated by: [id number] Y Date: 08/22/2024 12:06 Dictated By: Adriana Robledo M.D. Signed By: 08/22/24 1209 DD/ 1206 TD/TT: Office Equipment Mechanic: [facility] Radiology, Radiologist, MD - 08/22/2024 [place] [address] XRay Report Signed Patient: PHUONG RANDHAWA MR#: [id number] : 1960 Acct:[id number] Age/Sex: 63 / F ADM Date: 08/22/24 Loc: LAB Attending Dr: Terry Mclaughlin M.D. Ordering Physician: Terry Mclaughlin M.D. Date of Service: 08/22/24 Procedure(s): XR ankle RT 2V Accession Number(s): [id number] cc: Terry Mclaughlin M.D. [place] [address] Patient Name: PHUONG RANDHAWA MRN: [id number] date: 1960 Sex: F Assigned Patient Location: LAB Current Patient Location: LAB Accession/Order Number: [id number] Exam Date: 08/22/2024 12:04 Report Date: 08/22/2024 [...] Robledo M.D. 08/22/2024 12:06 PM Dictation Location: [place] [address] Electronically authenticated by: [id number] Y Date: 08/22/2024 12:06 Dictated By: Adriana Robledo M.D. Signed By: 08/22/24 1209 DD/ 1206 TD/TT: Office Equipment Mechanic: [facility] Radiology Study observation (narrative) [facility] XR Ankle - right 2 ViewsOrde red By: Radiologist Radiology on 08-22-2024 [facility] [employer] Work Phone: CT KNEE RT WO [...] Sylvester MD on 02/22/2024 12:46 PM Normal [facility] XR Knee - right 3 Viewson [...] patella. Impression: Unremarkable right total knee arthroplasty. [facility] Study observation (narrative) [facility] ALL CBC WITH AUTO DIFFon BASOPHILS ABSOLUTE AUTO 0.1 [facility] Basophils/100 WBC (Bld) 0.8 % 0.2 - 2.0 % [facility] Eosinophils/100 WBC (Bld) 2.5 % 0.9 - 7.0 % [facility] Erythrocyte distribution width (RBC) [Ratio] 14.2 % 11.0 - 15.0 % [facility] Hematocrit (Bld) [Volume fraction] 40.3 % 36.0 - 48.0 % [facility] [employer] Hemoglobin (Bld) [Mass/Vol] 12.9 g/dL 12.0 - 16.0 g/dL [facility] IMMATURE GRANULOCYTES ABS AUTO 0.06 High [facility] Immature granulocytes/100 WBC (Bld) 0.9 % High 0.0 - 0.5 % [facility] Interpretation and review of laboratory results Abnormal [facility] LYMPHOCYTES ABSOLUTE AUTO 1.1 Low [facility] Lymphocytes/100 WBC (Bld) 17.7 % Low 20.5 - 60.0 % [facility] MCH (RBC) [Entitic mass] 28.4 pg 26.7 - 34.0 pg [facility] MCHC (RBC) [Mass/Vol] 32.0 g/dL 29.9 - 35.2 g/dL [facility] MCV (RBC) [Entitic vol] 88.6 fL 81.0 - 99.0 fL [facility] MONOCYTES ABSOLUTE AUTO 0.5 [facility] Monocytes/100 WBC (Bld) 7.7 % 1.7 - 12.0 % [facility] NEUTROPHILS ABSOLUTE AUTO 4.5 [facility] Neutrophils/100 WBC (Bld) 70.4 % 43.0 - 75.0 % [facility] Platelet mean volume (Bld) [Entitic vol] 10.1 fL 9.5 - 13.5 [facility]L [facility] # [facility].2 [facility] TB PLT 255 [facility] TB RBC 4.55 [facility] TB WBC 6.4 [facility] ALL CBC WITH AUTO DIFFon BASOPHILS ABSOLUTE AUTO 0.1 [facility] Basophils/100 WBC (Bld) 0.8 % 0.2 - 2.0 % [facility] Eosinophils/100 WBC (Bld) 3.0 % 0.9 - 7.0 % [facility] Erythrocyte distribution width (RBC) [Ratio] 14.1 % 11.0 - 15.0 % [facility] Hematocrit (Bld) [Volume fraction] 40.0 % 36.0 - 48.0 % [facility] Hemoglobin (Bld) [Mass/Vol] 12.4 g/dL 12.0 - 16.0 g/dL [facility] IMMATURE GRANULOCYTES ABS AUTO 0.05 High [facility] Immature granulocytes/100 WBC (Bld) 0.8 % High 0.0 - 0.5 % [facility] Interpretation and review of laboratory results Abnormal [facility] LYMPHOCYTES ABSOLUTE AUTO 1.4 [facility] Lymphocytes/100 WBC (Bld) 22.9 % 20.5 - 60.0 % [facility] MCH (RBC) [Entitic mass] 27.9 pg 26.7 - 34.0 pg [facility] MCHC (RBC) [Mass/Vol] 31.0 g/dL 29.9 - 35.2 g/dL [facility] MCV (RBC) [Entitic vol] 89.9 fL 81.0 - 99.0 fL [facility] MONOCYTES ABSOLUTE AUTO 0.4 [facility] Monocytes/100 WBC (Bld) 6.8 % 1.7 - 12.0 % [facility] NEUTROPHILS ABSOLUTE AUTO 3.9 [facility] Neutrophils/100 WBC (Bld) 65.7 % 43.0 - 75.0 % [facility] Platelet mean volume (Bld) [Entitic vol] 10.0 fL 9.5 - 13.5 fL [facility] EO # 0.2 [facility] PLT 246 [facility] RBC 4.45 [facility] WBC 6.0 [facility] PAP ACOG PANEL 2: 30 to 65on 06-18-2022 . . Normal [facility] Comment on above: Result Comment: Perf ormed at: WB Performed By: #### [id number] #### [facility] [address] [place] [address] [address] Laurita Hooker Age Gdln ACOG Testing 30-65 Normal [facility] Comment on above: Performed By: #### [id number] #### [facility] [address] [place] [address] Dr. Laurita Hooker DIAGNOSIS: Comment Abnormal [facility] Comment on above: Result Comment: EPIT HELIAL CELL ABNORMALITY. LOW GRADE SQUAMOUS INTRAEPITHELIAL LESION (LSIL). Performed at: WB Performed By: #### [id number] #### [facility] [address] [place] [address] [address] Laurita Hooker Electronically signed by: Comment Normal [facility] Comment on above: Result Comment: Leeann Carrera MD, Pathologist Performed at: WB Performed By: #### [id number] #### [facility] [address] [place] [address] Dr. Laurita Hooker HPV Aptima Positive Abnormal Negative [facility] Comment on above: Result Comment: This nucleic acid amplification test detects fourteen high-risk HPV types (16,18,31,33,35,39,45,51,52,56,58,59,66,68) without differentiation. Performed at: =G Performed By: #### [id number] #### [facility] [address] [place] [address] Dr. Laurita Hooker HPV Genotype Reflex Comment Normal [facility] Comment on above: Result Comment: Crit eria not met, HPV Genotype not performed. Performed at: WB Performed By: #### 4 [id number] #### [facility] [address] [place] [address] Dr. Laurita Hooker Methodology: Comment Normal [facility] Comment on above: Result Comment: This liquid based ThinPrep(R) pap test was screened with the use of an image guided system. Performed at: WB Performed By: #### 4 [id number] #### [facility] [address] [place] [address] Dr. Laurita Hooker Note: Comment Normal [facility] Comment on [...] Performed at: WB Performed By: #### [id number] #### [facility] [address] [place] [address] Dr. Laurita Hooker Pathologist Provided ICD10 Comment Normal [facility] Comment on above: Result Comment: R87. [id number] Performed at: WB Performed By: #### [id number] #### [facility] [address] [place] [address] Dr. Laurita Hooker Performed by: Comment Normal [facility] Comment on above: Result Comment: Ashley Pena, Lead Investigator (ASCP) Performed at: WB Performed By: #### 4 [id number] #### [facility] [address] [place] [address] Dr. Laurita Hooker Recommendation: Comment Abnormal [facility] Comment on above: Result Comment: Sugg est follow up as clinically appropriate. Performed at: WB Performed By: #### 4 [id number] #### [facility] [address] [place], [place] [address] Dr. Laurita Hooker Specimen adequacy: Comment Normal [facility] Comment on above: Result Comment: Sati sfactory for evaluation. Endocervical and/or squamous metaplastic cells (endocervical component) are present. Performed at: WB Performed By: #### 4 [id number] #### [facility] [address] [place] [id number] Laurita Hooker MG MAMM SCREEN 3D JAYCE CADon 06-16-2022 MG MAMM SCREEN 3D JAYCE CAD Patient: PHUONG RANDHAWA Exam Date: 06/16/2022 : 1960 Gender:F Ordering : DR BRAD CALERO . Admission #: [id number] Family : Order #: [id number] CLICK HERE TO VIEW EXAM RADIOLOGY REPORT [...] No Treatments None Family Cancers None LOCATION: [facility] BREAST COMPOSITION: Scattered areas fibroglandular [...] Fernandez M.D. on 06/16/2022 at 14:21 Normal [facility] XR DEXA BONE DENSITYon 06-16 XR [...] by: BRAD FERNANDEZ Date: 2022-06-16 15:27 Normal [facility] PAP ACOG PANEL 2: 30 to 65on 03-19-2022 . . Normal [facility] Comment on above: Result Comment: Perf ormed at: WB Performed By: #### [id number] #### [facility] [address] [place] [address] Dr. Laurita Hooker Age Gdln ACOG Testing 30-65 Normal [facility] Comment on above: Performed By: #### 4 [id number] #### [facility] [address] [place] [address] [address] Laurita Hooker DIAGNOSIS: Comment Abnormal [facility] Comment on above: Result Comment: EPIT HELIAL CELL ABNORMALITY. LOW-GRADE SQUAMOUS INTRAEPITHELIAL LESION (LSIL); (ENCOMPASSING HUMAN PAPILLOMAVIRUS /MILD DYSPLASIA/CIN1). Performed at: WB Performed By: #### [id number] #### [facility] [address] [place] [address] [address] Laurita Hooker Electronically signed by: Comment Normal [facility] Comment on above: Result Comment: Allie Nowak MD, Pathologist Performed at: WB Performed By: #### 4 [id number] #### [facility] [address] [place] [address] [address] Laurita Hooker HPV Aptima Positive Abnormal Negative [facility] Comment on above: Result Comment: This nucleic acid amplification test detects fourteen high-risk HPV types (16,18,31,33,35,39,45,51,52,56,58,59,66,68) without differentiation. Performed at: =G Performed By: #### 4 [id number] #### [facility] [address] [place] [address] [address] Laurita Hooker HPV Genotype Reflex Comment Normal [facility] Comment on above: Result Comment: Crit eria not met, HPV Genotype not performed. Performed at: WB Performed By: #### [id number] #### [facility] [address] [place] [address] [address] Laurita Hooker Methodology: Comment Normal [facility] Comment on above: Result Comment: This liquid based ThinPrep(R) pap test was screened with the use of an image guided system. Performed at: WB Performed By: #### 4 [id number] #### [facility] [address] [place] [address] [address] Laurita Hooker Note: Comment Normal [facility] Comment on [...] Performed at: WB Performed By: #### 4 [id number] #### [facility] [address] [place] [address] [address] Laurita Hooker Pathologist Provided ICD10 Comment Normal [facility] Comment on above: Result Comment: R87. [id number] Performed at: WB Performed By: #### 4 [id number] #### [facility] [address] [place] [address] [address] Laurita Hooker Performed by: Comment Normal [facility] Comment on above: Result Comment: Kamran Krishnamurthy, Lead Investigator (ASCP) Performed at: [facility] Performed By: #### 4 [id number] #### [facility] [address] [place] [address] [address] Laurita Hooker Recommendation: Comment Abnormal [facility] Comment on above: Result Comment: Sugg est follow up as clinically appropriate. Performed at: WB Performed By: #### 4 [id number] #### [facility] [address] [place] [address] [address] Laurita Hooker Specimen adequacy: Comment Normal [facility] Comment on above: Result Comment: Sati sfactory for evaluation. Endocervical and/or squamous metaplastic cells (endocervical component) are present. Performed at: WB Performed By: #### 4 [id number] #### [facility] [address] [place] [address] Dr. Laurita Hooker PAP ACOG PANEL 2: 30 to 65on 09-17-2021 . . Normal [facility] Comment on above: Result Comment: Perf ormed at: WB Performed By: #### 4 [id number] #### [facility] [address] [place] [address] [address] Laurita Hooker Age Gdln ACOG Testing 30-65 [facility] Comment on above: Performed By: #### 4 [id number] #### [facility] [address] [place] [address] Dr. Laurita Hooker DIAGNOSIS: Comment Normal [facility] Comment on above: Result Comment: NEGA TIVE FOR INTRAEPITHELIAL LESION OR MALIGNANCY. Performed at: WB Performed By: #### 4 [id number] #### [facility] [address] [place] [address] Dr. Laurita Hooker HPV Aptima Positive Abnormal Negative [facility] Comment on above: Result Comment: This nucleic acid amplification test detects fourteen high-risk HPV types (16,18,31,33,35,39,45,51,52,56,58,59,66,68) without differentiation. Performed at: =G Performed By: #### 4 [id number] #### [facility] [address] [place] [address] [address] Laurita Hooker HPV Genotype 16 Positive Abnormal Negative [facility] Comment on above: Result Comment: Perf ormed at: =G Performed By: #### 4 [id number] #### [facility] [address] [place] [address] Dr. Laurita Hooker HPV Genotype 18,45 Negative Normal Negative [facility] Comment on above: Result Comment: Perf ormed at: =G Performed By: #### 4 [id number] #### [facility] [address] [place] [address] Dr. Laurita Hooker Methodology: Comment Normal [facility] Comment on above: Result Comment: This liquid based ThinPrep(R) pap test was screened with the use of an image guided system. Performed at: WB Performed By: #### 4 [id number] #### [facility] [address] [place] [address] Dr. Laurita Hooker Note: Comment Normal [facility] Comment on [...] Performed at: WB Performed By: [id number] #### [facility] [address] [place] [address] Dr. Laurita Hooker Performed by: Comment Normal [facility] Comment on above: Result Comment: Mar Plunkett, Lead Investigator (ASCP) Performed at: WB Performed By: [id number] #### [facility] [address] [place] [address] Dr. Laurita Hooker Specimen adequacy: Comment Normal [facility] Comment on above: Result Comment: Sati sfactory for evaluation. Endocervical and/or squamous metaplastic cells (endocervical component) are present. Performed at: WB Performed By: #### [id number] #### [facility] [address] [place] [address] Dr. Laurita Hooker HEPATITIS PANEL, ACUTEon HBsAg Screen Negative Normal Negative [facility] Comment on above: Performed By: #### H EPACUT #### [facility] [address] [place] [address] Dr. Laurita Hooker HCV AB <0.1 Normal 0.0-0.9 [facility] Comment on above: Performed By: #### H EPACUT #### [facility] [address] [place] [address] Dr. Laurita Hooker Hep A Ab, IgM Negative Normal Negative [facility] Comment on above: Performed By: #### H EPACUT #### [facility] [address] [place], [place] [address] Dr. Laurita Hooker Hep B Core Ab, IgM Negative Normal Negative [facility] Comment on above: Performed By: #### H EPACUT #### [facility] [address] [place], [place] [address] Dr. Laurita Hooker Interpretation: Comment Normal [facility] Comment on above: Result Comment: Nega tive Not infected with HCV, unless recent infection is suspected or other evidence exists to indicate HCV infection. Performed By: #### H EPACUT #### [facility] [address] [place], [place] [address] Dr. Laurita Hooker Vital Signs Date Time Vital Sign Value Performing Clinician Facility 09-22-2024 11:30-0400 Body height 165.1 cm Terry Mclaughlin MD Work Phone: [facility] 09-22-2024 11:30-0400 Body mass index (BMI) [Ratio] 36.11 kg/m2 Terry Mclaughlin MD Work Phone: [facility] 09-22-2024 11:30-0400 Body temperature 96.01 [degF] Terry Mclaughlin MD Work Phone: [facility] 09-22-2024 11:30-0400 Body weight 98.43 kg Terry Mclaughlin MD Work Phone: [facility] 09-22-2024 11:30-0400 Diastolic blood pressure 78 mm[Hg] Terry Mclaughlin MD Work Phone: [facility] 09-22-2024 11:30-0400 Heart rate 105 /min Terry Mclaughlin MD Work Phone: [facility] 09-22-2024 11:30-0400 Respiratory rate 20 /min Terry Mclaughlin MD Work Phone: [facility] 09-22-2024 11:30-0400 SaO2% (BldA) [Mass fraction] 96 % Terry Mclaughlin MD Work Phone: [facility] 09-22-2024 11:30-0400 Systolic blood pressure 140 mm[Hg] Terry Mclaughlin MD Work Phone: [facility] 09-05-2024 13:19-0400 Body height 165.1 cm Major Gallardo DO Work Phone: [facility] 09-05-2024 13:19-0400 Body mass index (BMI) [Ratio] 36.44 kg/m2 Major Gallardo DO Work Phone: [facility] 09-05-2024 13:19-0400 Body weight 99.34 kg Major Gallardo DO Work Phone: [facility] 09-05-2024 13:19-0400 Diastolic blood pressure 76 mm[Hg] Major Gallardo DO Work Phone: [facility] 09-05-2024 13:19-0400 Systolic blood pressure 126 mm[Hg] Major Gallardo DO Work Phone: [facility] 08-22-2024 09:46-0400 Body height 165.1 cm Terry Mclaughlin MD Work Phone: [facility] 08-22-2024 09:46-0400 Body mass index (BMI) [Ratio] 37.11 kg/m2 Terry Mclaughlin MD Work Phone: [facility] 08-22-2024 09:46-0400 Body temperature 97.81 [degF] Terry Mclaughlin MD Work Phone: [facility] 08-22-2024 09:46-0400 Body weight 101.15 kg Terry Mclaughlin MD Work Phone: [facility] 08-22-2024 09:46-0400 Diastolic blood pressure 62 mm[Hg] Terry Mclaughlin MD Work Phone: [facility] 08-22-2024 09:46-0400 Heart rate 107 /min Terry Mclaughlin MD Work Phone: [facility] 08-22-2024 09:46-0400 Respiratory rate 20 /min Terry Mclaughlin MD Work Phone: [facility] 08-22-2024 09:46-0400 SaO2% (BldA) [Mass fraction] 95 % Terry Mclaughlin MD Work Phone: [facility] 08-22-2024 09:46-0400 Systolic blood pressure 134 mm[Hg] Terry Mclaughlin MD Work Phone: [facility] 06-30-2024 14:26-0400 Diastolic blood pressure 82 mm[Hg] Terry Mclaughlin MD Work Phone: [facility] 06-30-2024 14:26-0400 Heart rate 94 /min Terry Mclaughlin MD Work Phone: [facility] 06-30-2024 14:26-0400 SaO2% (BldA) [Mass fraction] 95 % Terry Mclaughlin MD Work Phone: [facility] 06-30-2024 14:26-0400 Systolic blood pressure 130 mm[Hg] Terry Mclaughlin MD Work Phone: [facility] 06-20-2024 13:51-0400 Body height 170.18 cm Terry Mclaughlin MD Work Phone: [facility] 06-20-2024 13:51-0400 Body mass index (BMI) [Ratio] 34.7 kg/m2 Terry Mclaughlin MD Work Phone: [facility] 06-20-2024 13:51-0400 Body weight 100.69 kg Terry Mclaughlin MD Work Phone: [facility] 06-20-2024 13:51-0400 Diastolic blood pressure 80 mm[Hg] Terry Mclaughlin MD Work Phone: [facility] 06-20-2024 13:51-0400 Heart rate 93 /min Terry Mclaughlin MD Work Phone: [facility] 06-20-2024 13:51-0400 SaO2% (BldA) [Mass fraction] 96 % Terry Mclaughlin MD Work Phone: [facility] 06-20-2024 13:51-0400 Systolic blood pressure 130 mm[Hg] Terry Mclaughlin MD Work Phone: [facility] 06-01-2024 10:14-0400 Diastolic blood pressure 71 mm[Hg] Terry Mclaughlin MD Work Phone: [facility] 06-01-2024 10:14-0400 Heart rate 79 /min Terry Mclaughlin MD Work Phone: [facility] 06-01-2024 10:14-0400 Respiratory rate 16 /min Terry Mclaughlin MD Work Phone: [facility] 06-01-2024 10:14-0400 SaO2% (BldA) [Mass fraction] 96 % Terry Mclaughlin MD Work Phone: [facility] 06-01-2024 10:14-0400 Systolic blood pressure 111 mm[Hg] Terry Mclaughlin MD Work Phone: [facility] 06-01-2024 09:36-0400 Inhaled oxygen flow rate 4 L/min Terry Mclaughlin MD Work Phone: [facility] 06-01-2024 08:09-0400 Body height 170.18 cm Terry Mclaughlin MD Work Phone: [facility] 06-01-2024 08:09-0400 Body weight 100.69 kg Terry Mclaughlin MD Work Phone: [facility] 05-23-2024 12:26-0400 Diastolic blood pressure 80 mm[Hg] Terry Mclaughlin MD Work Phone: [facility] 05-23-2024 12:26-0400 Heart rate 97 /min Terry Mclaughlin MD Work Phone: [facility] 05-23-2024 12:26-0400 SaO2% (BldA) [Mass fraction] 95 % Terry Mclaughlin MD Work Phone: [facility] 05-23-2024 12:26-0400 Systolic blood pressure 122 mm[Hg] Terry Mclaughlin MD Work Phone: [facility] 05-11-2024 12:30-0400 Diastolic blood pressure 62 mm[Hg] Terry Mclaughlin MD Work Phone: [facility] 05-11-2024 12:30-0400 Heart rate 76 /min Terry Mclaughlin MD Work Phone: [facility] 05-11-2024 12:30-0400 Respiratory rate 16 /min Terry Mclaughlin MD Work Phone: [facility] 05-11-2024 12:30-0400 SaO2% (BldA) [Mass fraction] 97 % Terry Mclaughlin MD Work Phone: [facility] 05-11-2024 12:30-0400 Systolic blood pressure 131 mm[Hg] Terry Mclaughlin MD Work Phone: [facility] 05-11-2024 11:52-0400 Inhaled oxygen flow rate 3 L/min Terry Mclaughlin MD Work Phone: [facility] 05-11-2024 10:33-0400 Body height 170.18 cm Terry Mclaughlin MD Work Phone: [facility] 05-11-2024 10:33-0400 Body weight 100.69 kg Terry Mclaughlin MD Work Phone: [facility] 04-13-2024 13:14-0500 Body weight 100.75 kg [facility] 04-13-2024 13:14-0500 Diastolic blood pressure 70 mm[Hg] [facility] 04-13-2024 13:14-0500 Heart rate 92 /min [facility] 04-13-2024 13:14-0500 SaO2% (BldA) [Mass fraction] 95 % [facility] 04-13-2024 13:14-0500 Systolic blood pressure 130 mm[Hg] [facility] 02-24-2024 13:06-0500 Body mass index (BMI) [Ratio] 36.28 kg/m2 Terry Mclaughlin MD Work Phone: [facility] 02-24-2024 13:06-0500 Body temperature 97 [degF] Terry Mclaughlin MD Work Phone: [facility] 02-24-2024 13:06-0500 Body weight 98.88 kg Terry Mclaughlin MD Work Phone: [facility] 02-24-2024 13:06-0500 Diastolic blood pressure 70 mm[Hg] Terry Mclaughlni MD Work Phone: [facility] 02-24-2024 13:06-0500 Heart rate 94 /min Terry Mclaughlin MD Work Phone: [facility] 02-24-2024 13:06-0500 SaO2% (BldA) [Mass fraction] 97 % Terry Mclaughlin MD Work Phone: [facility] 02-24-2024 13:06-0500 Systolic blood pressure 128 mm[Hg] Terry Mclaughlin MD Work Phone: [facility] 11-19-2023 10:32-0400 Body height 165.1 cm Terry Mclaughlin MD Work Phone: [facility] 11-19-2023 10:32-0400 Body mass index (BMI) [Ratio] 36.61 kg/m2 Terry Mclaughlin MD Work Phone: [facility] 11-19-2023 10:32-0400 Body temperature 97.3 [degF] Terry Mclaughlin MD Work Phone: [facility] 11-19-2023 10:32-0400 Body weight 99.79 kg Terry Mclaughlin MD Work Phone: [facility] 11-19-2023 10:32-0400 Diastolic blood pressure 80 mm[Hg] Terry Mclaughlin MD Work Phone: [facility] 11-19-2023 10:32-0400 Heart rate 99 /min Terry Mclaughlin MD Work Phone: [facility] 11-19-2023 10:32-0400 Respiratory rate 20 /min Terry Mclaughlin MD Work Phone: [facility] 11-19-2023 10:32-0400 SaO2% (BldA) [Mass fraction] 95 % Terry Mclaughlin MD Work Phone: [facility] 11-19-2023 10:32-0400 Systolic blood pressure 152 mm[Hg] Terry Mclaughlin MD Work Phone: [facility] Healthcare Encounters Encounter Date Encounter Type Care Provider Facility Start: 11-16-2024 End: 11-16-2024 Bamboo flowsheet Charlotte Bah PT [facility] Start: 11-16-2024 End: 11-16-2024 Bamboo flowsheet Charlotte Bah PT [facility] Start: 11-16-2024 End: 11-16-2024 ambulatory Charlotte Bah PT [facility] Comment on above: Right knee pain, uns pecified chronicity (Primary Dx); Presence of artificial knee joint, right Start: 11-14-2024 End: 11-14-2024 ambulatory [facility] Start: 10-24-2024 End: 10-24-2024 [facility] Start: 10-07-2024 End: 10-07-2024 Telephone encounter Jr. Sonja Saleh DO Work Phone: [facility] Comment on above: referral Start: 10-04-2024 End: 10-04-2024 Bamboo flowsjared Saleh DO Work Phone: [facility] Start: 10-04-2024 End: 10-04-2024 Bamboo flowsjared Saleh DO Work Phone: [facility] Start: 10-04-2024 End: 10-04-2024 Office outpatient visit 15 minutes Sonja Saleh DO Work Phone: [facility] Comment on above: Acute pain of right knee; History of right knee joint replacement; Prosthetic joint loosening, initial encounter; Tendonitis of ankle, right; Right ankle pain, unspecified chronicity Start: 10-04-2024 End: 10-04-2024 ambulatory JR. SONJA SALEH Not Available Start: 10-03-2024 End: 10-03-2024 ambulatory [facility] Start: 09-23-2024 End: 09-23-2024 ambulatory [facility] Start: 09-23-2024 Encounter for other specified special examinations [facility] Start: 09-23-2024 End: 09-23-2024 Telephone encounter Sonja Saleh DO Work Phone: [facility] Comment on above: unable to complete m ri Start: 09-22-2024 End: 09-22-2024 Bam365looks flowsheet Terry Mclaughlin MD Work Phone: [facility] Start: 09-22-2024 End: 09-22-2024 Vaultive flowsheet Terry Mclaughlin MD Work Phone: [facility] Start: 09-22-2024 End: 09-23-2024 ambulatory SONJA SALEH [facility] Start: 09-22-2024 End: 09-22-2024 Office outpatient visit 25 minutes Terry Mclaughlin MD Work Phone: [facility] Comment on above: Lumbar spondylosis ( Primary Dx); Primary osteoarthritis of right knee; Postoperative pain of right knee; Class 2 severe obesity due to excess calories with serious comorbidity and body mass index (BMI) of 37.0 to 37.9 in adult ([facility]) Start: 09-19-2024 End: 09-19-2024 ambulatory SONJA SALEH [facility] Start: 09-19-2024 End: 09-19-2024 ambulatory SONJA SALEH [facility] Start: 09-07-2024 End: 09-07-2024 ambulatory JUAN MIGUEL ANDREW [facility] Start: 09-06-2024 End: 09-06-2024 ambulatory SONJA VASQUEZ Not Available Start: 09-06-2024 End: 09-06-2024 Office outpatient visit 25 minutes Sonja Saleh DO Work Phone: [facility] Comment on above: Right ankle pain, un specified chronicity; Tendonitis of ankle, right; History of right knee joint replacement; Acute pain of right knee Start: 09-05-2024 End: 09-05-2024 Patient encounter status Major Alvarenga Sami DO Work Phone: [facility] Start: 09-05-2024 End: 09-05-2024 Periodic preventive med est patient 40-64yrs Major Gallardo DO Work Phone: [facility] Comment on above: Encounter for gyneco logical examination without abnormal finding (Primary Dx); Encounter for Papanicolaou smear of cervix; Breast cancer screening by mammogram; Osteopenia, unspecified location; Screening for osteoporosis; Asymptomatic menopausal state Start: 09-05-2024 End: 09-05-2024 ambulatory MAJOR GALLARDO Not Available Start: 08-22-2024 End: 08-22-2024 Bamboo flowsheet Terry Mclaughlin MD Work Phone: [facility] Start: 08-22-2024 End: 08-22-2024 Bamboo flowsheet Terry Mclaughlin MD Work Phone: [facility] Start: 08-22-2024 End: 08-22-2024 Clinisync Result Encounter Terry Mclaughlin MD Work Phone: [facility] External Department Unsolicited Start: 08-22-2024 End: 08-22-2024 Office outpatient visit 25 minutes Terry Mclaughlin MD Work Phone: [facility] Comment on above: Lumbar spondylosis ( Primary Dx); Primary osteoarthritis of right knee; Acute right ankle pain; Primary insomnia; Seasonal allergic rhinitis due to pollen; Class 2 severe obesity due to excess calories with serious comorbidity and body mass index (BMI) of 37.0 to 37.9 in adult ([facility]) Start: 08-22-2024 End: 08-22-2024 ambulatory TERRY MCLAUGHLIN Not Available Start: 08-17-2024 End: 08-17-2024 ambulatory HENRIETTA Guevara ALFONSO [facility] Start: 08-10-2024 End: 08-10-2024 ambulatory [facility] Start: 07-20-2024 End: 07-20-2024 ambulatory [facility] Start: 07-01-2024 End: 07-01-2024 ambulatory [facility] Start: 06-30-2024 End: 06-30-2024 ambulatory Terry Mclaughlin MD Work Phone: [facility] Work Phone: Start: 06-30-2024 End: 06-30-2024 Patient encounter procedure Terry Mclaughlin MD Work Phone[facility] Work Phone: Start: 06-29-2024 End: 06-29-2024 Isabell Saleh DO [...] Not Available Start: 06-23-2024 End: 06-23-2024 ambulatory [facility] Start: 06-22-2024 End: 06-22-2024 ambulatory HENRIETTA HAMILTON [facility] Start: 06-20-2024 End: 06-20-2024 ambulatory Terry Mclaughlin MD Work Phone: [facility] Work Phone: Start: 06-20-2024 End: 06-20-2024 Patient encounter procedure Terry Mclaughlin MD Work Phone: [facility] Work Phone: Start: 06-01-2024 Non-patient / Non-visit Terry cross MD Work Phone: [facility] Work Phone: Start: 06-01-2024 End: 06-01-2024 Admission to same day surgery center Terry Mclaughlin MD Work Phone: [facility] Work Phone: Start: 06-01-2024 End: 06-01-2024 ambulatory Terry Mclaughlin MD Work Phone: [facility] Work Phone: Start: 05-31-2024 End: 05-31-2024 Refill Terry Mclaughlin MD [facility] Comment on above: Lumbar spondylosis Start: 05-30-2024 Non-patient / Non-visit Terry cross MD Work Phone: [facility] Work Phone: Start: 05-30-2024 End: 05-30-2024 ambulatory JUAN MIGUEL ANDREW [facility] Start: 05-23-2024 End: 05-23-2024 Patient encounter procedure Terry Mclaughlin MD Work Phone: [facility] Work Phone: Start: 05-23-2024 End: 05-23-2024 Refill Terry Mclaughlin MD Work Phone: [facility] Comment on above: Insomnia, unspecifie d Start: 05-17-2024 End: 05-17-2024 Refill Terry Mclaughlin MD Work Phone: [facility] Comment on above: Insomnia, unspecifie d Start: 05-17-2024 End: 05-17-2024 ambulatory [facility] Start: 05-11-2024 End: 05-11-2024 Admission to same day surgery center Terry Mclaughlin MD Work Phone: [facility] Work Phone: Start: 05-11-2024 End: 05-11-2024 ambulatory Terry Mclaughlin MD Work Phone: [facility] Work Phone: Start: 04-27-2024 End: 04-27-2024 Refill Terry Mclaughlin MD Work Phone: [facility] Comment on above: S/P TKR (total knee replacement), right Start: 04-22-2024 End: 04-22-2024 ambulatory [facility] Start: 04-19-2024 End: 04-19-2024 ambulatory [facility] Start: 04-13-2024 End: 04-13-2024 ambulatory [facility] Work Phone: Start: 04-13-2024 End: 04-13-2024 Patient encounter procedure [facility] Work Phone: Start: 04-06-2024 End: 04-06-2024 Isabell Woodwardanic DO Work Phone: [facility] Start: 04-06-2024 End: 04-06-2024 Isabell Ivory Stepanic DO Work Phone: [facility] Start: 04-06-2024 End: 04-06-2024 ambulatory SONJA Not Available Start: 04-06-2024 End: 04-06-2024 Office outpatient visit 15 minutes Jr. Sonja Ivory Delfino DO Work Phone: [facility] Comment on above: Nerve pain (Primary Dx); History of right knee joint replacement; Acute pain of right knee Start: 03-29-2024 End: 03-30-2024 Telephone encounter Diogo THACKER Work Phone: [facility] Comment on above: Swelling in RT TKA Start: 03-28-2024 End: 03-28-2024 ambulatory [facility] Start: 03-07-2024 End: 03-07-2024 ambulatory [facility] Start: 03-01-2024 End: 03-02-2024 Telephone encounter Braydon Ivory Delfino DO Work Phone: [facility] Comment on above: Pain Start: 02-24-2024 End: 02-24-2024 Bamboo flowsheet Terry Mclaughlin MD Work Phone: [facility] Start: 02-24-2024 End: 02-24-2024 Bamboo flowsheet Terry Mclaughlin MD Work Phone: [facility] Start: 02-24-2024 End: 02-24-2024 ambulatory TERRY MCLAUGHLIN Not Available Start: 02-24-2024 End: 02-24-2024 Patient encounter procedure Terry Mclaughlin MD Work Phone: [facility] Start: 02-24-2024 End: 02-24-2024 Periodic preventive med est patient 40-64yrs Terry Mclaughlin MD Work Phone: [facility] Comment on above: Annual physical exam (Primary Dx); Lumbar spondylosis; Primary osteoarthritis of right knee; MDD (major depressive disorder), recurrent episode, moderate (CMS/HCC); Overflow incontinence of urine; Class 2 severe obesity due to excess calories with serious comorbidity and body mass index (BMI) of 36.0 to 36.9 in adult ([facility]) Start: 02-24-2024 End: 02-24-2024 ambulatory HENRIETTA HAMILTON [facility] Start: 02-19-2024 End: 02-19-2024 ambulatory LARON WATTS [facility] Start: 02-18-2024 End: 02-18-2024 ambulatory [facility] Start: 02-08-2024 End: 02-08-2024 Refill Terry Mclaughlin MD Work Phone: [facility] Comment on above: Primary osteoarthrit is of left knee Start: 02-05-2024 End: 02-05-2024 Refill Terry Mclaughlin MD Work Phone: [facility] Comment on above: Insomnia, unspecifie d Start: 02-02-2024 End: 02-02-2024 Bamboo flowsheet Jr. Sonja Saleh DO Work Phone: [facility] Start: 02-02-2024 End: 02-02-2024 Bamboo flowsheet Jr. Sonja Saleh DO Work Phone: [facility] Start: 02-02-2024 End: 02-02-2024 Office outpatient visit 15 minutes Jr. Sonja Saleh DO Work Phone: [facility] Comment on above: Acute pain of right knee (Primary Dx) Start: 02-02-2024 End: 02-02-2024 ambulatory SONJA VASQUEZ Not Available Start: 01-25-2024 End: 01-25-2024 ambulatory [facility] Start: 01-18-2024 End: 01-18-2024 Refill Terry Mclaughlin MD Work Phone: [facility] Comment on above: S/P TKR (total knee replacement), right Start: 01-06-2024 End: 01-06-2024 Bamboo flowsheet Jr. Sonja Saleh DO Work Phone: [facility] Start: 01-06-2024 End: 01-06-2024 Bamboo flowsheet Jr. Sonja Ivory Stepanic DO Work Phone: [facility] Start: 01-06-2024 End: 01-06-2024 Office outpatient visit 25 minutes JrBraydon Ivory Stepanic DO Work Phone: [facility] Comment on above: Acute pain of right knee (Primary Dx); History of right knee joint replacement Start: 01-06-2024 End: 01-06-2024 ambulatory .SONJA Not Available Start: 12-29-2023 End: 12-29-2023 ambulatory [facility] Start: 12-24-2023 End: 12-24-2023 ambulatory [facility] Start: 12-22-2023 End: 01-05-2024 Telephone encounter JrBraydon Saleh DO Work Phone: [facility] Start: 12-21-2023 End: 12-21-2023 Bamboo flowsheet Jr. Sonja Ivory Stepanic DO Work Phone: [facility] Start: 12-21-2023 End: 12-21-2023 Bamboo flowsheet Jr. Sonja Ivory Stepanic DO Work Phone: [facility] Start: 12-21-2023 End: 12-21-2023 Office outpatient visit 25 minutes Jr. Sonja Saleh DO Work Phone: [facility] Comment on above: Acute pain of right knee (Primary Dx); History of right knee joint replacement; Arthralgia of right knee Start: 12-21-2023 End: 12-21-2023 ambulatory .SONJA Not Available Start: 12-16-2023 End: 12-16-2023 Bamboo flowsheet Tabatha Pereira PT Work Phone: [facility] Start: 12-16-2023 End: 12-16-2023 Bamboo flowsheet Tabatha Pereira PT Work Phone: [facility] Start: 12-16-2023 End: 12-16-2023 ambulatory Tabatha Pereira PT Work Phone: [facility] Comment on above: Postoperative pain o f right knee (Primary Dx); Status post right knee replacement; Presence of artificial knee joint, right Start: 12-14-2023 End: 12-14-2023 Bamboo flowsheet Una Brink EDI MANAGER [facility] [facility] Start: 12-14-2023 End: 12-14-2023 Bamboo flowsheet Una Brink EDI MANAGER [facility] Start: 12-14-2023 End: 12-15-2023 ambulatory Una Trejoink EDI MANAGER [facility] Comment on above: Primary osteoarthrit is of right knee (Primary Dx); Postoperative pain of right knee; Status post right knee replacement; Presence of artificial knee joint, right Primary osteoarthrit is of left knee Start: 12-08-2023 End: 12-08-2023 ambulatory [facility] Start: 12-07-2023 End: 12-07-2023 Bamboo flowsheet Una Brink EDI MANAGER [facility] Start: 12-07-2023 End: 12-07-2023 Bamboo flowsheet Una Brink EDI MANAGER [facility] Start: 12-07-2023 End: 12-07-2023 ambulatory Una Maynard EDI MANAGER [facility] Comment on above: Postoperative pain o f right knee (Primary Dx); Status post right knee replacement; Presence of artificial knee joint, right Start: 12-03-2023 End: 12-03-2023 Bamboo flowsheet Tabatha Pereira PT Work Phone: [facility] Start: 12-03-2023 End: 12-03-2023 Bamboo flowsheet Tabatha Pereira PT Work Phone: [facility] Start: 12-03-2023 End: 12-03-2023 ambulatory Tabatha Pereira PT Work Phone: [facility] Comment on above: Postoperative pain o f right knee (Primary Dx); Status post right knee replacement; Presence of artificial knee joint, right Start: 11-30-2023 End: 11-30-2023 ambulatory Una Maynard EDI MANAGER [facility] Comment on above: Primary osteoarthrit is of right knee (Primary Dx); Postoperative pain of right knee; Status post right knee replacement; Presence of artificial knee joint, right Start: 11-30-2023 End: 12-01-2023 Telephone encounter Jr. Sonja Saleh DO Work Phone: [facility] Start: 11-25-2023 End: 11-25-2023 Bamboo flowsheet Unaciara Maynard EDI MANAGER [facility] Start: 11-25-2023 End: 11-25-2023 Bamboo flowsheet Una Trejoink EDI MANAGER [facility] Start: 11-25-2023 End: 11-25-2023 ambulatory Una Trejoink EDI MANAGER [facility] Comment on above: Primary osteoarthrit is of right knee (Primary Dx); Postoperative pain of right knee; Status post right knee replacement; Presence of artificial knee joint, right Start: 11-24-2023 End: 11-24-2023 ambulatory [facility] Start: 11-23-2023 End: 11-23-2023 Isabell Saleh DO Work Phone: [facility] Start: 11-23-2023 End: 11-23-2023 Isabell Saleh DO Work Phone: [facility] Start: 11-23-2023 End: 11-23-2023 Clinisync Result Encounter Terry Mclaughlin MD Work Phone: [facility] External Department Unsolicited Start: 11-23-2023 End: 11-23-2023 Postop follow up visit related to original px Jr. Sonja Saleh DO Work Phone: [facility] Comment on above: S/P TKR (total knee replacement), right (Primary Dx); Primary osteoarthritis of right knee Start: 11-23-2023 End: 11-23-2023 ambulatory SONJA VASQUEZ Not Available Start: 11-19-2023 End: 11-19-2023 Bamboo flowsheet Terry Mclaughlin MD Work Phone: [facility] Start: 11-19-2023 End: 11-19-2023 Bamboo [...] Body mass index (BMI) 36.0-36.9, adult Start: 11-12-2023 End: 11-19-2023 Telephone encounter Una [...] on-hold.) Start: 11-11-2023 End: 11-13-2023 Telephone encounter Diogo THACKER Work Phone: [facility] Start: 11-09-2023 End: 11-09-2023 Isabell Saleh DO Work Phone: [facility] Start: 11-09-2023 End: 11-09-2023 Isabell Saleh DO Work Phone: [facility] Start: 11-09-2023 End: 11-09-2023 Clinisync Result Encounter Generic External Data Provider [facility] External Department Unsolicited Start: 11-09-2023 End: 11-09-2023 Postop follow up visit related to original lynsey Saleh DO Work Phone: [facility] Comment on above: S/P TKR (total knee replacement), right (Primary Dx); Acute pain of right knee Start: 11-06-2023 End: 11-06-2023 Bamboo flowsheet Una Maynard EDI MANAGER [facility] Start: 11-06-2023 End: 11-06-2023 Bamboo flowsheet Una Maynard EDI MANAGER [facility] Start: 11-06-2023 End: 11-06-2023 ambulatory Una Maynard EDI MANAGER [facility] Comment on above: Primary osteoarthrit is of right knee (Primary Dx); Postoperative pain of right knee; Status post right knee replacement; Presence of artificial knee joint, right Start: 11-04-2023 End: 11-04-2023 Telephone encounter Una Maynard EDI MANAGER [facility] Comment on above: NC/NS for PT (Tried to contact re: NC/NS for last scheduled PT; had to lm. I requested a call back due to she has an ext on the referral dated to begin 11/05.); Call Back (She called noting that the appt was marked wrong on calendar; we rs for 11/05.) Start: 11-03-2023 End: 11-03-2023 Refill Terry Mclauhglin MD Work Phone: [facility] Comment on above: Insomnia, unspecifie d Start: 10-30-2023 End: 11-03-2023 Telephone encounter Diogo THACKER Work Phone: [facility] Start: 10-29-2023 End: 10-29-2023 ambulatory Una Maynard EDI MANAGER [facility] Comment on above: Primary osteoarthrit is of right knee (Primary Dx); Postoperative pain of right knee; Status post right knee replacement; Presence of artificial knee joint, right Start: 10-28-2023 End: 10-28-2023 Bamboo flowsheet Diogo THACKER Work Phone: [facility] Start: 10-28-2023 End: 10-28-2023 Bamboo flowsheet Diogo THACKER Work Phone: [facility] Start: 10-28-2023 End: 10-28-2023 Postop follow up visit related to original px Diogo THACKER Work Phone: [facility] Comment on above: S/P TKR (total knee replacement), right (Primary Dx) Start: 10-27-2023 End: 10-28-2023 Refill Terry Mclaughlin MD Work Phone: [facility] Comment on above: Primary osteoarthrit is of left knee Start: 10-21-2023 End: 10-21-2023 Bamboo flowsheet Zabrina Kelbley EDI MANAGER [facility] Start: 10-21-2023 End: 10-21-2023 Bamboo flowsheet Zabrina Kelbley EDI MANAGER [facility] Start: 10-21-2023 End: 10-21-2023 ambulatory Zabrina Kelbley EDI MANAGER [facility] Comment on above: Primary osteoarthrit is of right knee (Primary Dx); Postoperative pain of right knee; Status post right knee replacement; Presence of artificial knee joint, right Start: 10-14-2023 End: 10-14-2023 Bamboo flowsheet Zabrina Kelbley EDI MANAGER [facility] Start: 10-14-2023 End: 10-14-2023 Bamboo flowsheet Zabrina Kelbley EDI MANAGER [facility] Start: 10-14-2023 End: 10-14-2023 Postop follow up visit related to original px Diogo THACKER Work Phone: [facility] Comment on above: S/P TKR (total knee replacement), right (Primary Dx); Acute pain of right knee Start: 10-14-2023 End: 10-14-2023 ambulatory Zabrina Kelbley EDI MANAGER [facility] Comment on above: Primary osteoarthrit is of right knee (Primary Dx); Postoperative pain of right knee; Status post right knee replacement; Presence of artificial knee joint, right Start: 10-12-2023 End: 10-12-2023 Telephone encounter Diogo THACKER Work Phone: [facility] Comment on above: Med Refill Start: 10-10-2023 End: 10-11-2023 Preprocedural examination done Diogo THACKER Work Phone: [facility] Start: 10-10-2023 End: 10-11-2023 Refill Diogo THACKER Work Phone: [facility] Comment on above: Preop examination; Primary osteoarthritis of right knee Start: 10-09-2023 End: 10-09-2023 Bamboo flowsheet Una Brink EDI MANAGER [facility] Start: 10-09-2023 End: 10-09-2023 Bamboo flowsheet Una Brink EDI MANAGER [facility] Start: 10-09-2023 End: 10-09-2023 ambulatory Una Maynard EDI MANAGER [facility] Comment on above: Primary osteoarthrit is of right knee (Primary Dx); Postoperative pain of right knee; Status post right knee replacement; Presence of artificial knee joint, right Start: 09-30-2023 End: 10-06-2023 Telephone encounter Diogo THACKER Work Phone: [facility] Comment on above: refill Start: 08-17-2023 End: 11-19-2023 Preoperative state Terry Mclaughlin MD Work Phone: [facility] Start: 03-18-2023 Refill Terry Alvarenga Work Phone: [facility] Comment on above: Gastroesophageal ref lux [...] Start: 10-04-2024 Radiologic examination knee 1/2 views Jr. Sonja C Stepanic DO Work Phone: Start: 08-22-2024 Radiologic examination [...] Start: 11-23-2023 ALL CBC WITH AUTO DIFF Trery Mclaughlin MD Work Phone: Start: 11-09-2023 ALL CBC WITH AUTO DIFF JrBraydon Woodward anic DO Work Phone: Start: 09-07-2023 Mammography Terry [...] ant neoplasm of cervix [facility] Start: 08-30-2027 Screening for malign ant neoplasm of cervix [facility] Start: 09-01-2026 Screening for malign ant neoplasm of colon [facility] Start: 08-31-2026 Screening for malign ant neoplasm of cervix Pap Smear [facility] Start: 09-08-2025 End: 09-08-2025 Patient encounter procedure [facility] Start: 02-24-2025 End: 02-24-2025 Patient encounter procedure 02/24/2025 11:30 AM EST Office Visit [facility] [address] [place] [address] Terry Mclaughlin MD [address] [place] [address] [facility] Start: 12-09-2024 End: 12-09-2024 ambulatory 12/09/2024 10:30 AM EDT Treatment [facility] [address] [place] [address] Una Maynard PTA [facility] Start: 12-07-2024 End: 12-07-2024 ambulatory 12/07/2024 10:30 AM EDT Treatment [facility] [address] [place] [address] Una Maynard PTA [facility] Start: 12-02-2024 End: 12-02-2024 ambulatory 12/02/2024 10:30 AM EDT Treatment [facility] [address] [place] [address] Una Maynard PTA [facility] Start: 11-30-2024 End: 11-30-2024 ambulatory 11/30/2024 10:30 AM EDT Treatment [facility] [address] [place] [address] Una Maynard PTA [facility] Start: 11-25-2024 End: 11-25-2024 ambulatory 11/25/2024 10:30 AM EDT Treatment [facility] [facility] [address] [place] [address] Una Maynard PTA [facility] [facility] Start: 11-23-2024 End: 11-23-2024 ambulatory 11/23/2024 10:30 AM EDT Treatment [facility] [facility] [address] [place] [address] Una Maynard PTA [facility] [facility] Start: 11-22-2024 End: 11-22-2024 Patient encounter procedure 11/22/2024 1:30 PM EDT Office Visit [facility] [address] [place] [address] Terry Mclaughlin MD [address] [place] [address] [facility] Start: 10-17-2024 Influenza vaccination [facility] Start: 10-04-2024 End: 10-04-2024 Patient encounter procedure [facility] Comment on above: Arrived Start: 09-22-2024 End: 09-22-2024 Patient encounter procedure 09/22/2024 11:15 AM EDT Office Visit [facility] [address] [place] [address] Terry Mclaughlin MD [address] [place] [address] [facility] Start: 09-07-2024 End: 11-06-2025 DBT Breast - bilateral screening Bilateral screening mammogram with tomosynthesis Imaging Routine Breast cancer screening by mammogram Expected: 09/07/2024, Expires: 11/06/2025 [facility] Comment on above: Expected: 09/07/2024 , Expires: 11/06/2025 Start: 09-06-2024 End: 09-06-2025 MR Ankle - right WO contrast MR ankle right wo IV contrast Imaging Routine Tendonitis of ankle, right Expected: 09/06/2024 (Approximate), Expires: 09/06/2025 [facility] Work Phone: Comment on above: Expected: 09/06/2024 (Approximate), Expires: 09/06/2025 Start: 09-06-2024 End: 09-06-2025 NM Whole body Bone 3 Phase Views NM bone 3 phase Imaging Routine History of right knee joint replacement Acute pain of right knee Expected: 09/06/2024 (Approximate), Expires: 09/06/2025 [facility] Comment on above: Expected: 09/06/2024 (Approximate), Expires: 09/06/2025 Start: 09-06-2024 Screening for malign ant neoplasm of breast Mammogram [facility] Start: 09-06-2024 End: 09-06-2024 Patient encounter procedure 09/06/2024 10:15 AM EDT Office Visit [facility] [address] [place] [address] Jr. Sonja Saleh, DO [address] [facility] [address] [place] [address] [facility] Start: 09-05-2024 End: 09-05-2025 DXA Skeletal system Views for bone density DEXA bone density Imaging Routine Osteopenia, unspecified location Screening for osteoporosis Asymptomatic menopausal state Expected: 09/05/2024, Expires: 09/05/2025 [facility] Comment on above: Expected: 09/05/2024 , Expires: 09/05/2025 Start: 09-05-2024 End: 09-05-2024 Patient encounter procedure 09/05/2024 1:30 PM EDT Office Visit [facility] [address] [place] [phone] Major Gallardo, [address] [place], [place] [phone] [facility] Start: 08-25-2024 End: 08-25-2024 Patient encounter procedure 08/25/2024 10:15 AM EDT Office Visit [facility] [address] [place] [address] Terry Mclaughlin MD [address] [place] [address] [facility] Start: 08-23-2024 End: 08-23-2024 Patient encounter procedure 08/23/2024 1:15 PM EDT Office Visit [facility] [address] [place] [phone] Terry Mclaughlin MD [address] [place] [address] [facility] Start: 08-22-2024 End: 08-22-2025 Urate [Mass/volume] in Serum or Plasma Uric acid Lab Routine Acute right ankle pain Expected: 08/22/2024 (Approximate), Expires: 08/22/2025 [facility] Work Phone: Comment on above: Expected: 08/22/2024 (Approximate), Expires: 08/22/2025 Start: 08-22-2024 End: 08-22-2025 XR Ankle - right 2 Views XR ankle 2 views right Imaging Routine Acute right ankle pain Expected: 08/22/2024, Expires: 08/22/2025 [facility] Comment on above: Expected: 08/22/2024 , Expires: 08/22/2025 Start: 08-22-2024 End: 08-22-2024 Patient encounter procedure 08/22/2024 9:30 AM EDT Office Visit [facility] [address] [place] [address] Terry Mclaughlin MD [address] [place] [address] Arrived [facility] Comment on above: Arrived Start: 06-29-2024 End: 06-29-2024 Patient encounter procedure [facility] Comment on above: Arrived Start: 06-01-2024 [facility] Start: 05-11-2024 [facility] Start: 04-06-2024 End: 04-06-2024 Patient encounter procedure 04/06/2024 9:00 AM EST Office Visit [facility] [address] [place] [address] Jr. Sonja Saleh, DO [address] [place] [address] [facility] Start: 03-29-2024 End: 03-29-2024 Patient encounter procedure 03/29/2024 11:15 AM EST Office Visit [facility] [address] [place] [phone] Jr. Sonja Saleh, DO [address] [facility] [address] [place] [address] [facility] Start: 02-24-2024 End: 02-24-2024 Patient encounter procedure 02/24/2024 1:00 PM EST Office Visit [facility] [address] [place] [address] Terry Mclaughlin MD [address] [place] [address] [facility] Start: 02-23-2024 End: 02-23-2024 Patient encounter procedure 02/23/2024 10:30 AM EST Office Visit [facility] [address] [place] [address] Jr. Sonja Saleh, DO [address] [facility] [address] [place] [address] [facility] Start: 02-02-2024 End: 02-02-2024 Patient encounter procedure [facility] Comment on above: Arrived Start: 01-06-2024 End: 01-06-2024 Patient encounter procedure [facility] Comment on above: Arrived Start: 12-23-2023 End: 12-23-2023 ambulatory 12/23/2023 11:00 AM EST Treatment [facility] [address] [place] [address] Tabatha Pereira, PT [address] [place] [address] [facility] Start: 12-21-2023 End: 12-21-2023 Patient encounter procedure [facility] Comment on above: Arrived Start: 12-16-2023 End: 12-16-2023 ambulatory 12/16/2023 1:00 PM EDT Treatment [facility] [address] [place] [address] Tabatha Pereira, PT [address] [place] [address] [facility] Start: 12-14-2023 End: 12-14-2023 ambulatory [facility] Comment on above: Arrived Start: 12-10-2023 End: 12-10-2023 ambulatory 12/10/2023 1:00 PM EDT Treatment [facility] [address] [place] [address] Una Maynard, EDI MANAGER [facility] Start: 12-07-2023 End: 12-07-2023 ambulatory 12/07/2023 1:00 PM EDT Treatment [facility] [address] [place] [address] Una Maynard, EDI MANAGER [facility] Start: 12-04-2023 End: 12-04-2023 Patient encounter procedure 12/04/2023 10:15 AM EDT Office Visit [facility] [address] Diogo Bernal PA [address] [place] [address] [facility] Start: 12-03-2023 End: 12-03-2023 ambulatory [facility] Comment on above: Arrived Start: 11-30-2023 End: 11-30-2023 ambulatory 11/30/2023 2:00 PM EDT Treatment [facility] [address] [facility] [address] [place] [address] Una Maynard, CONSUELO [facility] Start: 11-25-2023 End: 11-25-2023 ambulatory [facility] Comment on above: Arrived Start: 11-23-2023 End: 11-23-2023 Patient encounter procedure [facility] Comment on above: Arrived Start: 11-19-2023 End: 11-18-2024 Basic metabolic 1998 panel - Serum or Plasma Basic metabolic panel Lab Routine Encounter for long-term (current) use of medications Expected: 11/19/2023 (Approximate), Expires: 11/18/2024 [facility] Work Phone: Comment on above: Expected: 11/19/2023 (Approximate), Expires: 11/18/2024 Start: 11-19-2023 End: 11-18-2024 CBC W Auto Differential panel - Blood CBC and differential Lab Routine Encounter for long-term (current) use of medications Expected: 11/19/2023 (Approximate), Expires: 11/18/2024 [facility] Comment on above: Expected: 11/19/2023 (Approximate), Expires: 11/18/2024 Start: 11-19-2023 End: 11-18-2024 Hepatic function 2000 panel - Serum or Plasma Hepatic function panel Lab Routine Encounter for long-term (current) use of medications Expected: 11/19/2023 (Approximate), Expires: 11/18/2024 [facility] Comment on above: Expected: 11/19/2023 (Approximate), Expires: 11/18/2024 Start: 11-19-2023 End: 11-18-2024 TSH W/REFLEX TO FT4 TSH W/REFLEX TO FT4 Lab Routine Lightheaded Fatigue, unspecified type Expected: 11/19/2023 (Approximate), Expires: 11/18/2024 [facility] Comment on above: Expected: 11/19/2023 (Approximate), Expires: 11/18/2024 Start: 11-19-2023 End: 11-19-2023 Patient encounter procedure 11/19/2023 10:30 AM EDT Office Visit [facility] [address] [place] [address] Terry Mclaughlin MD [address] [place] [address] Arrived [facility] Comment on above: Arrived Start: 11-18-2023 End: 11-18-2023 Patient encounter procedure 11/18/2023 11:15 AM EDT [facility] Visit [facility] [address] [place] [address] Diogo Bernal, PA [address] [facility] [address] [place] [address] [facility] Start: 11-10-2023 End: 11-10-2023 ambulatory 11/10/2023 11:00 AM EDT Treatment [facility] [address] [facility] [address] [place] [address] Una Maynard PTA [facility] Start: [...] Treatment [facility] [address] [facility] [address] [place] [address] Una Maynard EDI MANAGER [facility] Start: 11-04-2023 End: 11-04-2023 ambulatory 11/04/2023 1:30 PM EDT Treatment [facility] [address] [place] [address] Una Maynard EDI MANAGER [facility] Start: 10-29-2023 End: 10-29-2023 ambulatory 10/29/2023 1:00 PM EDT Treatment [facility] [address] [place] [address] Una Maynard EDI MANAGER [facility] Start: 10-28-2023 End: 10-28-2023 Patient encounter procedure [facility] Comment on above: S/P TKR (total knee replacement), right (Primary Dx) Start: 10-21-2023 End: 10-21-2023 ambulatory [facility] Comment on above: Arrived Start: 10-18-2023 Influenza vaccination Influenza Vacc ine (#1) [facility] Start: 10-14-2023 End: 10-14-2023 Patient encounter procedure 10/14/2023 1:30 PM EDT Office Visit [facility] [address] [place] [address] Diogo Bernal, PA [address] [place] [address] [facility] Start: 10-14-2023 End: 10-14-2023 [...] PT [address] [place] [address] Una Maynard PTA [facility] Start: 09-01-2023 End: 09-01-2023 Patient encounter procedure 09/01/2023 11:30 AM EDT Office Visit [facility] [address] [place] [address] Major Gallardo, DO [address] [place] [address] [facility] Start: 08-17-2023 End: 08-17-2023 Patient encounter procedure 08/17/2023 10:45 AM EDT Office Visit [facility] [address] [place] [address] Terry Mclaughlin MD [address] [place] [address] [facility] Start: 07-15-2023 End: 07-15-2023 Patient encounter procedure 07/15/2023 11:00 AM EDT Office Visit [facility] [address] [facility] [place] [address] Jr. Sonja Saleh, DO [address] [place] [address] [facility] Start: 06-17-2023 Screening for malign ant neoplasm of breast Mammogram [facility] Start: 10-17-2022 Influenza vaccination Influenza Vacc ine (#1) [facility] Start: 10-09-1983 Screening for malign ant neoplasm of cervix Pap Smear [facility] Start: 1962 Screening for malign ant neoplasm of colon [facility] IGP, APT HPV,RFX 16/18,45 IGP, APT HPV,RFX 16/18,45 Lab Routine Encounter for Papanicolaou smear of cervix Ordered: 09/05/2024 [facility] Work Phone: Comment on above: Ordered: 09/05/2024 Patient Education [facility] Work Phone: Patient referral [facility] Work Phone: XR Knee - right 1 or 2 Views XR knee 1 or 2 views right Imaging Routine Acute pain of right knee 10/14/2023 1:11 PM EDT [facility] Work Phone: Immunizations Immunization Date Immunization Notes Care Provider Fa cili 12-03-2021 COVID-19 mRNA Bivale nt Booster (Pfizer) Terry Mclaughlin MD Work Phone: [facility] 12-03-2021 Moderna Bivalent Booster Vaccination Terry Mclaughlin MD Work Phone: [facility] 09-07-2021 COVID-19 Comirnaty (Pfizer) Tri-Sucrose 12+ Terry Mclaughlin MD Work Phone: [facility] 12-15-2020 COVID-19 mRNA, Comirnaty (Pfizer) Terry Mclaughlin MD Work Phone: [facility] 06-03-2020 COVID-19 mRNA, Comirnaty (Pfizer) Terry Mclaughlin MD Work Phone: [facility] 05-14-2020 COVID-19 mRNA, Comirnaty (Pfizer) Terry Mclaughlin MD Work Phone: [facility] 12-27-2018 influenza, injectabl e, quadrivalent, preservative free Terry Mclaughlin MD Work Phone: [facility] 12-27-2018 influenza virus vaccine, unspecified formulation Terry Mclaughlin MD Work Phone: [facility] Payers Date Payer Category Payer Self-pay [id number] 2024 Self-pay 2021 [employer] BCBS Memb er Subscriber Plan / Payer (Effective 2021-Present) Name: Esperanza Randhawayce Donny Relation to Subscriber: Self Name: Phuong Randhawa Payer ID: Not on file Type: Not on file Address: [address] [id number] 2021 Unknown BCBS BCBS xxxxxx [id number] 2021-Present [phone] [address] [place] [id number] 1962 Unknown [id number] 1962 Unknown [id number] 1962 Unknown [id number] 1962 Unknown [id number] 1962 Unknown [id number] 2.16.840.1.565648.3.579.2 .593 1960 Unknown [id number] 2.16.840.1.588905.3.579.2 .128 1960 Unknown [id number] 2.16.840.1.516217.3.579.2 .128 1962 Unknown [id number] 2.16.840.1.805118.3.579.2 .1285 1962 Unknown [id number] 2.16.840.1.845309.3.579.2 .128 1962 Unknown [id number] 2.16840.1.887820.3.579.2 .1285 1962 Unknown [id number] 2.16.840.1.591153.3.579.2 .1285 1962 Unknown [id number] 2.840.1.172727.3.579.2 .128 1962 Unknown [id number] 2.16840.1.081214.3.579.2 .1285 1962 Unknown [id number] 2.840.1.375444.3.579.2 .1285 1962 Unknown [id number] 2.16840.1.439830.3.579.2 .128 1962 Unknown [id number] 2.840.1.980557.3.579.2 .128 1962 Unknown [id number] 2.16840.1.351852.3.579.2 .128 1962 Unknown [id number] 2.16840.1.839608.3.579.2 .1285 1962 Unknown [id number] 2.16840.1.232436.3.579.2 .1285 1962 Unknown [id number] 2.16840.1.652314.3.579.2 .1285 1962 Unknown [id number] 2.16.840.1.179071.3.579.2 .128 1962 Unknown [id number] 2.16.840.1.422126.3.579.2 .1285 1962 Unknown [id number] 2.16.840.1.291993.3.579.2 .1285 1962 Unknown [id number] 2.16840.1.299494.3.579.2 .1285 1962 Unknown [id number] 2.16.840.1.238319.3.579.2 .1285 1962 Unknown [id number] 2.840.1.932176.3.579.2 .1285 1962 Unknown [id number] 2.840.1.031772.3.579.2 .1285 1962 Unknown [id number] 2.840.1.849217.3.579.2 .1285 1962 Unknown [id number] 2.840.1.166350.3.579.2 .1285 1962 Unknown [id number] 2.840.1.063722.3.579.2 .1285 1962 Unknown [id number] 2.840.1.085891.3.579.2 .1285 1962 Unknown [id number] 2.840.1.406306.3.579.2 .1285 1962 Unknown [id number] 2.840.1.305608.3.579.2 .1285 1962 Unknown [id number] 2.840.1.994711.3.579.2 .1285 1962 Unknown [id number] 2.16840.1.206296.3.579.2 .1285 1962 Unknown [id number] 2.16840.1.992383.3.579.2 .1286 1962 Unknown [id number] 2.16.840.1.452068.3.579.2 .1286 1962 Unknown [id number] 2.16.840.1.399147.3.579.2 .1259 1962 Unknown [id number] 2.16.840.1.476494.3.579.2 .125 1962 Unknown [id number] 2.16.840.1.475762.3.579.2 .1258 1962 Unknown [id number] 2.16.840.1.971911.3.579.2 .1258 1962 Unknown [id number] 2.16.840.1.648697.3.579.2 .1258 1962 Unknown [id number] 2.16.840.1.238967.3.579.2 .1258 1962 Unknown [id number] 2.16.840.1.926146.3.579.2 .125 1962 Unknown [id number] 2.16.840.1.917281.3.579.2 .1258 1962 Unknown [id number] 2.16.840.1.123575.3.579.2 .1258 1962 Unknown [id number] 2.16.840.1.261688.3.579.2 .1258 1962 Unknown [id number] 2.16.840.1.340413.3.579.2 .125 1962 Unknown [id number] 2.16.840.1.527062.3.579.2 .1258 1962 Unknown [id number] 2.16.840.1.453498.3.579.2 .1258 1962 Unknown [id number] 2.16.840.1.358785.3.579.2 .125 1962 Unknown [id number] 2.16.840.1.586960.3.579.2 .1259 1962 Unknown [id number] 2.16840.1.117049.3.579.2 .9 1962 Unknown [id number] 2.16.840.1.504760.3.579.2 .9 1962 Unknown [id number] 2.16.840.1.780787.3.579.2 .1258 1962 Unknown [id number] 2.16840.1.477436.3.579.2 .1258 1962 Unknown [id number] 2.16840.1.788346.3.579.2 .1258 1962 Unknown [id number] 2.16840.1.097086.3.579.2 .1259 1959 Unknown [id number] Self-pay [id number] Unknown [id number] Unknown [id number] 2.16.840.1.353586.3.579.2 .531 Unknown [id number] 2.16.840.1.079583.3.579.2 .531 Social History Date Type Detail Facility Start: 02-18-2023 End: 06-01-2024 Tobacco smoking status [facility] Ex-smoker [facility] History of tobacco use [...] a typical day? Patient does not drink [facility] Tobacco smoking stat us MOIS Unknown if ever smoked [facility] Work Phone: Start: 04-13-2024 End: 06-30-2024 Sex Female (finding) [facility] Start: 1960 Sex Assigned At Female F [facility] Goals Date Patient Goal Desired Activity /State Functional Status Date Assessment Result Facility 09-05-2024 Patient [facility] ionnaire 2 item (PHQ-2) [Reported] [facility] 09-05-2024 Total score [AUDIT-C] 0 09/06/19 25 1:22 PM EDT Vicki Beaulieu MA [facility] Clinical Notes 09-30-2023 to 11-16-2024 Charlotte Bah, PT - 11/16/2024 10:30 AM EDTTelephone Encounter - Taniya Shakila - 10/07/2024 10:27 AM EDTTelephone Encounter - Taniya Shakila - 10/07/2024 10:27 AM EDT Note Date & Type Note Facility 11-16-2024 History of Presen t illness Narrative Images from the original note were not included. Physical Therapy Evaluation Visit Patient Name: Phuong Randhawa Today's Date: 11/16/2024 Encounter Diagnoses Name Primary? Right knee pain, unspecified chronicity Yes Presence of artificial knee joint, right Visit number: 1 Timed Code Treatment Minutes: 55 minutes Total Treatment Time: 55 minutes Time In: 1020 Time Out: 1120 History: Pt states had right TKA in August of 2023. Pt states right knee has not been the same since and pt has had constant ache in right knee. Pt states she will also pain in right knee when she is active. Will also have pain in right knee at rest without activity. Pt she has had multiple injections without relief. Pt now seeing new orthopedic and is to start PT. Pt continues with swelling in right LE. 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 Precautions: bilateral TKA Subjective: Right knee Pain: 5/10 Objective: PT Evaluation (11/16/2024) RIGHT KNEE AROM: 2 to 129 degrees in supine PROM: 0 to 130 degrees in supine Joint play: hypomobility right patella MMT: right hip 4-/5, right quad 4/5 due to pain Palpation: moderate tenderness right jeni patella Special Test: mild discomfort with patellar grind testing Functional: Five Time Sit to Stand: 13.71 seconds with arms across chest Treatment: Education: HEP education with demonstration, Educated on Eval Findings and POC Manual Therapy: Passive ROM, Joint mobilization, Soft Tissue Mobilization, Myofascial Release, Muscle Energy Technique, Neural Mobilization, Myofascial Cupping, Dry Needling, IASTM, and Scar mobilization as needed. Therapeutic Exercise: (8 minutes) Strength, Endurance, Flexibility, ROM, HEP, Neural Mobilization, Power, and Core Stability as needed. Pt performed and instructed in home program this date; written instructions and pictures issued with good pt understanding. Therapeutic Activity: Exercises to improve dynamic activities, functional tasks, functional mobility to return to prior activity level as needed. Neuromuscular re-education: Balance Training, Muscle Facilitation, Dynamic Stability, Core Stabilization, and Blood Flow Restriction Training (BFRT) as needed. Modalities: Heat, Ice, Electrical Stimulation, Ultrasound, Cervical Mechanical Traction, Lumbar Mechanical Traction, Iontophoresis, and Fluidotherapy as needed. Assessment: Pt is 64 y/o female with complaints of chronic right knee pain following TKA. Pt with decrease quad and hip strength. Full ROM of right knee. Pt instructed in home program and will benefit from PT. Outcome Measure: Lower Extremity Functional Scale (LEFS): 16/80 Rehab Diagnosis: right knee pain, right LE weakness, difficulty walking Short Term Goal: To be met in 2 weeks Goal 1: Pt to be instructed in home exercise program. Group Home Goals: To be met in 10 weeks Goal 1: Pt to report independence and compliance with home program. Goal 2: Pt to achieve 4+/5 strength right knee extension to assist with functional mobility and ADL's. Goal 3: t to achieve 4+/5 strength right hip to assist with mobility and alignment. 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 Goal 5: Pt to score no less than 40/80 on LEFS indicating improved QOL. Pt will benefit from skilled PT for 2x/week from 11/16/2024 to 02/14/2025 to address the above impairments. I hereby deem this POC medically necessary. Please sign below. Date: documented in this encounter [facility] 10-07-2024 Telephone encount er Note R TKA Prosthetic loosening, LES 10/04/24 Patient was referred to Dr Forrester & he is not in her insurance network. She has a list of many providers in her network; however, she wanted to know if there was anyone else knew of that she could check into as she trusts his opinion? [phone] [facility] 10-07-2024 Miscellaneous Notes Formattin g of this note might be different from the original. R TKA Prosthetic loosening, LES 10/04/24 Patient was referred to Dr Forrester & he is not in her insurance network. She has a list of many providers in her network; however, she wanted to know if there was anyone else knew of that she could check into as she trusts his opinion? [phone] documented in this encounter [facility] 10-04-2024 History of Presen t illness [...] EPIC CT (R) KNEE 02/19/24 - DR. MARKELL NO MRI LABS 11/09/23 @ [facility] (CBC / SED RATE / CRP) S/P MDP 10/14/23 NO CORTISONE INJ BONE SCAN 09/19/24 [facility] FINISHED PT @[facility] (POST-OP) S/P PAIN MGMT (DR. REYES) [...] PAIN. NEW FAX NUMBER FOR DR HENRY [phone] Standing Status: Future Expected Date: 10/04/2024 Expiration Date: 04/06/2025 Referral Priority: Routine Referral Type: Consultation Referral Reason: Consult and Treat Referred to Provider: Cristino Henry MD Requested Specialty: Podiatry Number of Visits Requested: 1 Ambulatory referral to Orthopaedic Surgery EVAL AND TREAT RT KNEE PROSTHETIC LOOSENING. BONE SCAN AT [facility] 09/19/24. RT TKA DOS 09/08/23. Standing [...] requiring urgent evaluation. documented in this encounter [facility] 09-23-2024 Telephone encount er Note R ankle pain, MRI of R ankle was ordered Per Beata at [facility], patient has clips in her head they were put in over 10 years ago and they were unable to complete the MRI Please advise next step [facility] 09-23-2024 Miscellaneous Notes Formattin g of this note might be different from the original. R ankle pain, MRI of R ankle was ordered Per Beata at [facility], patient has clips in her head they were put in over 10 years ago and they were unable to complete the MRI Please advise next step documented in this encounter [facility] 09-22-2024 History of Presen t illness [...] (BMI) of 37.0 to 37.9 in adult ([facility]) Patient doing well with adipex and [...] (BMI) of 37.0 to 37.9 in adult ([facility]) Patient doing well with adipex and [...] 37.5 MG tablet documented in this encounter [facility] 09-06-2024 History of Presen t illness Narrative Images from the original note were not included. HISTORY OF PRESENT ILLNESS: EST PT Phuong Randhawa is an 63 y.o. @ female. (EST PT) - RECHECK (R) KNEE -S/P (R) TKA 09/08/23 (~1YR) - NO LONGER SEEING DR REYES STATES RELIEF SHE GETS IS TEMPORARY. XRAYS, W/ [place] 12/21/23, 10/14/23 [facility] CT (R) KNEE 02/19/24 - DR. GUILLAUME NO MRI LABS 11/09/23 @ [facility] (CBC / SED RATE / CRP) S/P MDP 10/14/23 NO CORTISONE INJ FINISHED PT @[facility] (POST-OP) S/P PAIN MGMT (DR. REYES) REFERRAL [...] PAIN. *NEW PROBLEM* RT ANKLE PAIN XRAY [facility] 08/22/24 WEARS ANKLE BRACE + [facility] LABS FOR GOUT 08/22/[address] MCLAUGHLIN FOR ANKLE PAIN, XRAYS DONE AT [facility], WEARS ANKLE BRACE, TAKING MOBIC. [...] time dose the morning OF surgery HYDROcodone-acetaminophen ([place]) 5-325 MG tablet 1 tablet, Oral, 4 [...] requiring urgent evaluation. documented in this encounter [facility] 09-05-2024 History of Presen t illness Narrative Images from the original note were not included. Major Gallardo DO Obstetrics and Gynecology Phuong Randhawa 1960 09/05/24 [id number] Yearly Wellness Exam Chief Complaint Patient presents with Gynecologic Exam LMP: 2005 HRT: None Last pap 09-01-23 LGSIL, HPV pos. Last mammogram 09-07-23 [facility]. Denies breast, urinary, or bowel concerns. [...] time dose the morning OF surgery HYDROcodone-acetaminophen ([place]) 5-325 MG tablet Take 1 tablet by [...] costovertebral angle tenderness, no obvious scoliosis/kyphosis. 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 documented in this encounter [facility] 08-22-2024 History of Presen t illness [...] (BMI) of 37.0 to 37.9 in adult ([facility]) Patient overweight and difficult time losing [...] and use norco PRN. Relevant Medications HYDROcodone-acetaminophen ([place]) 5-325 MG tablet Primary insomnia Sleeping well with medication and continue. Seasonal allergic rhinitis due to pollen Symptoms controlled with medication and continue. Class 2 severe obesity due to excess calories with serious comorbidity and body mass index (BMI) of 37.0 to 37.9 in adult ([facility]) Patient overweight and difficult time losing [...] 2 views right documented in this encounter [facility] 06-29-2024 History of Presen t illness [...] MDP 10/14/23 NO CORTISONE INJ FINISHED PT @[facility] (POST-OP) S/P PAIN MGMT (DR. [...] requiring urgent evaluation. documented in this encounter [facility] 04-13-2024 Evaluation note Diagnosis Onset Date Resolution Other chronic pain acute Februa 2024 1:02pm Primary osteoarthritis of right knee acute April 13, 2 025 1:02pm [facility] Work Phone: 1(355) 886-203402-26-2025 Evaluation note* Diagnosis Onset Date Resolution Status Admit Date Other chronic pain acute 2024 1:02pm Primary osteoarthritis of ri ght knee acute April 13, 025 1:02pm Other chronic pain acute May 23, 2024 12:13pm Primary osteoarthritis of ri ght knee acute May 23, 2024 12:13pm [facility] Work Phone: 1(516) 899-630802-26-2025 Evaluation note* Diagnosis Onset Date Resolution Status [...] knee acute June 20, 2024 1: 35pm [facility] Work Phone: 1(125) 488-774602-26-2025 Evaluation note* Diagnosis Onset Date Resolution Status Admit Date Other chronic pain acute 2024 1:02pm Primary osteoarthritis of ri ght knee acute April 13, 025 1:02pm Other chronic pain acute May 23, 2024 12:13pm Primary osteoarthritis of ri ght knee acute May 23, 2024 12:13pm Myofascial muscle pain acute Ma y 2024 1:35pm Other chronic pain acute June 5t 2024 1:35pm Primary osteoarthritis of ri ght knee acute June 20, 2024 1: 35pm Myofascial muscle pain acute Ma y 2024 2:03pm Other chronic pain acute June 302024 2:03pm [facility] Work Phone: 1(278) 310-859402-19-2025 History of Present illness Narrative* Jr. Sonja Saleh, DO - 04/06/2024 9:00 AM EST Images from the original note were not included. HISTORY OF PRESENT ILLNESS: EST PT Phuongamanda Randhawa is an 63 y.o. @ female. (EST PT) - S/P (R) TKA 09/08/23 (~7 MONTHS) ; S/P MDP (02/02/24) XRAYS, W/ [place] 12/21/23, 10/14/23 [facility] CT (R) KNEE 02/19/24 - DR. GUILLAUME [...] for requiring urgent evaluation. documented in this encounterMercy McCune-Brooks [id number] Telephone encounter Note* Telephone Encounter - KIRSTIE Rehman - 03/29/2024 6:[address] Saleh... her Last MDP was on 03/01/24, I loaded another medrol dose pack if you want to send in... [facility] Work Phone: 1(349) 200-491002-11-2025 Miscellaneous Notes* Telephone Encounter - KIRSTIE Rehman [...] call her in a MDP [facility] documented in this encounterNOCox [id number] Telephone encounter Note* Telephone Encounter - Beata Rogers - 03/29/2024 3:21 PM EST error [facility] [id number] Miscellaneous Notes* Telephone Encounter - Beata Rogers - 03/29/2024 3:21 PM EST error documented in this encounterMercy McCune-Brooks [id number] Telephone encounter Note* Telephone Encounter - Beata Rogers - 03/29/2024 2:59 PM EST Phuong called and said that she is having swelling in her RT TKA said that she was suppose to call and let us know so that Dr. Saleh can call her in a MDP [facility] [id number] Telephone encounter Note* Telephone Encounter - KIRSTIE Rehman - 03/01/2024 12:01 PM EST Rx loaded.. Dr. Saleh, can you send if you agree [facility] [id number] Miscellaneous Notes* Telephone Encounter - KIRSTIE Rehman - 03/01/2024 12:01 PM EST Rx loaded.. Dr. Saleh, can you send if you agree * Telephone Encounter - Genet Guillermo - 03/01/2024 11:29 AM EST Patient called stating her knee is swollen. She was told that when this happens a MDP packet can besent over to [facility] [place]. documented in this encounterMercy McCune-Brooks [id number] Telephone encounter Note* Telephone Encounter - Genet Guillermo - 03/01/2024 11:29 AM EST Patient called stating her knee is swollen. She was told that when this happens a MDP packet can besent over to [facility] in [place]. [facility] [id number] History of Present illness Narrative* Terry Mclaughlin [...] and use norco PRN. Relevant Medications HYDROcodone-acetaminophen ([place]) 5-325 MG tablet cyclobenzaprine (Flexeril) 10 MG [...] Advised not to smoke. documented in this encounterMercy McCune-Brooks [id number] Telephone encounter Note* Telephone Encounter - Terry Mclaughlin MD - 02/05/2024 9:50 AM EST [facility] [id number] Miscellaneous Notes* Telephone Encounter - Terry Mclaughlin MD - 02/05/2024 9:50 AM EST documented in this encounterMercy McCune-Brooks HospitalHagsuctqtd99-72-0227 History of Present illness Narrative* Jr. Sonja Ivory Delfino, DO - 02/02/2024 11:15 AM EST Images from [...] S/P MDP 10/14/23 FINISHED PHYSICAL THERAPY @ [facility] ; POST-OP NO PAIN MGMT NOTES [...] for requiring urgent evaluation. documented in this encounterMercy McCune-Brooks [id number] History of Present illness Narrative* Apolonia Solis, [...] Tobacco Use: Medium Risk (12/29/2023) Received from [employer] Patient History Smoking Tobacco Use: Former Smokeless [...] ROM. Sonja Saleh D.O. documented in this encounterMercy McCune-Brooks [id number] Telephone encounter Note* Telephone Encounter - Kevin Gómez NP - 12/22/2023 11:41 AM EST Called and discussed with patient. She can use a compression knee sleeve if she would like but I donot recommend she use her off mold unloader brace. She will call back with any issues. [facility] Work Phone: 1(156) 297-122111-05-2024 Miscellaneous Notes* Telephone Encounter - Kevin Gómez NP - 12/22/2023 11:41 AM EST Called and discussed with patient. She can use a compression knee sleeve if she would like but I donot recommend she use her off mold unloader brace. She will call back with any issues. * Telephone Encounter - Mei Alba - 12/22/2023 10:08 AM EST Patient called asking if she should still wear her brace her right knee? documented in this encounterMercy McCune-Brooks HospitalKhznsilzrj21-22-9925 Telephone encounter Note* Telephone Encounter - Mei Alba - 12/22/2023 10:08 AM EST Patient called asking if she should still wear her brace her right knee? [facility] [id number] History of Present illness Narrative* Jr. Snoja Saleh, - 12/21/2023 1:45 PM EST Images [...] time dose the morning OF surgery HYDROcodone-acetaminophen ([place]) 5-325 MG tablet 1 tablet, Oral, 4 [...] time. Sonja Saleh D.O. documented in this encounterMercy McCune-Brooks [id number] History of Present illness Narrative* Tabatha Pereira PT - 12/16/2023 1:00 PM EDT Physical Therapy Physical Therapy Treatment Note Patient Name: Phuong Randhawa Today's Date: 12/16/2023 Encounter Diagnoses Name Primary? Postoperative pain of right knee Yes Status post right knee replacement Presence of artificial knee joint, right Visit Number 7/ (19 plus 7 used in home) Timed [...] AD with supervision, step to gait pattern. 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 documented in this encounterMercy McCune-Brooks HospitalDsacfchhae07-59-2820 History of Present illness Narrative* Tabatha Pereira, PT - 12/03/2023 1:00 PM EDT Physical Therapy Physical Therapy Treatment Note Patient Name: Phuong Randhawa Today's Date: 12/03/2023 Encounter Diagnoses Name Primary? Postoperative pain of right knee Yes Status post right knee replacement Presence of artificial knee joint, right Visit Number 4/ (16 plus 7 used in home) Timed [...] 5/12. Total Score = Balance + Gait . [...] AD with supervision, step to gait pattern. 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 NOT MET [...] doing well this date. documented in this encounterMercy McCune-Brooks HospitalLdcwzfuulj15-01-0341 Telephone encounter Note* Telephone Encounter - Kevin Gómez NP - 11/30/2023 1:09 PM EDT That's fine, we can provide her a note with those restrictions. [facility] Work Phone: 1(328) 614-995510-14-2024 Miscellaneous Notes* Telephone Encounter - Kevin Gómez [...] 2hrs for 10 min documented in this encounterMercy McCune-Brooks HospitalTnaophrhdr87-08-7749 Telephone encounter Note* Telephone Encounter - Mei Alba - 11/30/2023 12:59 PM EDT Patient called asking for a work note stating she is going back to work today. She would like to beable to sit every 2hrs for 10 min [facility] [id number] History of Present illness Narrative* Jr. Sonja Saleh, - 11/23/2023 1:30 PM EDT HISTORY OF [...] Consult and Treat Referred to Provider: Tabatha Pereira, PT Requested Specialty: Physical Therapy Number of [...] I am acting as scribe for Dr. Saleh/karen, PLAN: we have reviewed prior (R) knee [...] [facility] Sonja Saleh D.O. documented in this encounterMercy McCune-Brooks HospitalYzezasrpvz26-87-1829 History of Present illness Narrative* Terry Mclaughlin [...] MG 24 hr tablet documented in this encounterMercy McCune-Brooks HospitalSamenzmtmu09-08-8201 Telephone encounter Note* Telephone Encounter - Chaparrita Watts - 11/13/2023 11:[address] Delfino Juarez has put PT on-hold; if a call is received per patient notify to contact Dr. Saleh's office. [facility] HospitalMyubbjxlzk12-57-6859 Miscellaneous Notes* Telephone Encounter - Chaparrita Watts - 11/13/2023 11:[address] Delfino Juarez has put PT on-hold; if a call is received per patient notify to contact Dr. Saleh's office. * Telephone Encounter - Chaparrita Watts - 11/12/2023 1:51 PM EDT 6 visits out to 01/04/24 authorized. documented in this encounterMercy McCune-Brooks HospitalBmlfgtytfx20-26-3552 Telephone encounter Note* Telephone Encounter - Chaparrita Watts - 11/12/2023 1:51 PM EDT 6 visits out to 01/04/24 authorized. [facility] HospitalErjixhzxsk92-05-6730 Telephone encounter Note* Telephone Encounter - Mei [...] would like some kind of relief . [facility] HospitalUoibnaruph36-59-5157 Miscellaneous Notes* Telephone Encounter - Mei Alba [...] kind of relief . documented in this [facility]09-23-2024 History of Present illness Narrative* Jr. [...] strength / ROM and discuss lab results (TB). Sonja Saleh D.O. documented in this encounterMichael Ville [address]Yybavkcvdv93-57-7133 Telephone encounter Note* Telephone Encounter - Mei Abla - 10/30/2023 10:31 AM EDT Patient called stating she tried to go back to work on 10/26/2023 and was not able to make it the four hours that stats in her chart for going back to work. She didn't work 10/27/2023 and 10/28/2023 can she have a work note for those days/ [facility] [id number] Miscellaneous Notes* Telephone Encounter - Mei Alba - 10/30/2023 10:31 AM EDT Patient called stating she tried to go back to work on 10/26/2023 and was not able to make it the four hours that stats in her chart for going back to work. She didn't work 10/27/2023 and 10/28/2023 can she have a work note for those days/ documented in this encounterMercy McCune-Brooks HospitalHiddqzcjai03-59-2593 History of Present illness Narrative* KIRSTIE Rehman [...] for requiring urgent evaluation. documented in this encounterMer[facility] [id number] History of Present illness Narrative* KIRSTIE Rehman [...] for requiring urgent evaluation. [facility] Telephone encounter Note* Telephone Encounter - Mei Alba - 10/12/2023 11:42 AM EDT Patient calling to see if she can have a refill on her Percocet? Says she is still in a lot of pain. [facility] [id number] Miscellaneous Notes* Telephone Encounter - Mei Alba - 10/12/2023 11:42 AM EDT Patient calling to see if she can have a refill on her Percocet? Says she is still in a lot of pain. documented in this [facility]08-25-2024 Telephone encounter Note* Telephone Encounter - KIRSTIE Rehman - 10/11/2023 8:29 PM EDT Pt Should call for refill if needed. [facility] Work Phone: [phone] 229-122008-25-2024 Miscellaneous Notes* Telephone Encounter - KIRSTIE Rehman - 10/11/2023 8:29 PM EDT Pt Should call for refill if needed. documented in this encounterMercy McCune-Brooks [id number] Telephone encounter Note* Telephone Encounter - Anamaria Hernandez - 09/30/2023 1:40 PM EDT Called pt and left vm to call the office [facility] [id number] Miscellaneous Notes* Telephone Encounter - Anamaria Hernandez [...] refill of Percocet called in to [facility] in [place]. She is not completely out , but does not want to run out. Allergies: in chart Pt had RT TKA 09/08/23 Her call back [phone] documented in this encounterMercy McCune-Brooks [id number] Telephone encounter Note* Telephone Encounter - KIRSTIE Rehman - 09/30/2023 1:07 PM EDT Oarrs reviewed. RX sent to pharmacy. Please notify pt. Take least effective dose for pain control. [facility] [id number] Telephone encounter Note* Telephone Encounter - Anamaria Hernandez - 09/30/2023 9:50 AM EDT Pt called requesting refill of Percocet called in to [facility] in [place]. She is not completely out , but does not want to run out. Allergies: in chart Pt had RT TKA 09/08/23 Her call back [phone] [facility] HealthcareEvaluation note* Diagnosis Gastroesophageal reflux disease without esophagitis- Primary Esophageal reflux Chronic constipation Unspecified constipation History of allergic reaction documented in this encounter [facility] HealthcareEvaluation note* Diagnosis Lightheaded- Primary Dizziness and giddiness Fatigue, unspecified type Postoperative pain of right knee Overflow incontinence of urine Overflow incontinence Encounter for long-term (current) use of medications Encounter for long-term (current) use of other medications Primary osteoarthritis of right knee Body mass index (BMI) 36.0-36.9, adult documented in this encounter [facility] HealthcareEvaluation note* Diagnosis S/P TKR (total knee [...] knee joint, right documented in this encounter [facility] HealthcareEvaluation note* Diagnosis Lumbar spondylosis- Primary [...] of left knee documented in this encounter [facility] HealthcareEvaluation note* Diagnosis Lumbar spondylosis- Primary [...] knee joint, right documented in this encounter [facility] HealthcareEvaluation note* Diagnosis Lumbar spondylosis- Primary [...] of right knee documented in this encounter [facility] HealthcareEvaluation note* Diagnosis Lumbar spondylosis- Primary [...] knee joint replacement documented in this encounter [facility] HealthcareEvaluation note* Diagnosis Lumbar spondylosis- Primary [...] of left knee documented in this encounter [facility] HealthcareEvaluation note* Diagnosis Lumbar spondylosis- Primary [...] in adult (CMS/HCC) documented in this encounter [facility] HealthcareEvaluation note* Diagnosis Lumbar spondylosis- Primary [...] Primary Routine general medical examination at a [facility] care facility Lumbar spondylosis Lumbosacral spondylosis without myelopathy Primary osteoarthritis of right knee MDD (major depressive disorder), recurrent episode, moderate (CMS/HCC) Overflow incontinence of urine Overflow incontinence Class 2 severe obesity due to excess calories with serious comorbidity and body mass index (BMI) of 36.0 to 36.9 in adult (CMS/HCC) Acute pain of right knee- Primary documented in this encounter [facility] HealthcareEvaluation note* Diagnosis Lumbar spondylosis- Primary [...] Primary Routine general medical examination at a [facility] Lumbar spondylosis Lumbosacral spondylosis without myelopathy Primary [...] ri ght knee acute April 13 1:02pm [facility] Work Phone: Evaluation note* Diagnosis Lumbar [...] spondylosis without myelopathy documented in this encounter [facility] HealthcareEvaluation note* Diagnosis Lumbar spondylosis- Primary [...] (BMI) of 36.0 to 36.9 in adult (CMS/[facility]) Nerve pain- Primary Unspecified neuralgia, neuritis, and radiculitis History of right knee joint replacement documented in this encounter [facility] HealthcareEvaluation note* Diagnosis Lumbar spondylosis- Primary [...] (BMI) of 36.0 to 36.9 in adult ([facility]) Lumbar spondylosis- Primary Lumbosacral spondylosis without myelopathy Primary osteoarthritis of right knee Acute right ankle pain Primary insomnia Persistent disorder of initiating or maintaining sleep Seasonal allergic rhinitis due to pollen Class 2 severe obesity due to excess calories with serious comorbidity and body mass index (BMI) of 37.0 to 37.9 in adult ([facility]) documented in this encounter [facility] HealthcareEvaluation note* Diagnosis Lumbar spondylosis- Primary [...] (BMI) of 36.0 to 36.9 in adult ([facility]) Lumbar spondylosis- Primary Lumbosacral spondylosis without myelopathy Primary osteoarthritis of right knee Acute right ankle pain Primary insomnia Persistent disorder of initiating or maintaining sleep Seasonal allergic rhinitis due to pollen Class 2 severe obesity due to excess calories with serious comorbidity and body mass index (BMI) of 37.0 to 37.9 in adult ([facility]) Encounter for gynecological examination without abnormal finding- Primary Encounter for Papanicolaou smear of cervix Breast cancer screening by mammogram Osteopenia, unspecified location Screening for osteoporosis Special screening for osteoporosis Asymptomatic menopausal state documented in this encounter [facility] HealthcareEvaluation note* Diagnosis Lumbar spondylosis- Primary [...] (BMI) of 36.0 to 36.9 in adult ([facility]) Lumbar spondylosis- Primary Lumbosacral spondylosis without myelopathy Primary osteoarthritis of right knee Acute right ankle pain Primary insomnia Persistent disorder of initiating or maintaining sleep Seasonal allergic rhinitis due to pollen Class 2 severe obesity due to excess calories with serious comorbidity and body mass index (BMI) of 37.0 to 37.9 in adult ([facility]) Right ankle pain, unspecified chronicity Tendonitis of ankle, right History of right knee joint replacement Acute pain of right knee documented in this encounter [facility] HealthcareEvaluation note* Diagnosis Lumbar spondylosis- Primary [...] (BMI) of 36.0 to 36.9 in adult ([facility]) Lumbar spondylosis- Primary Lumbosacral spondylosis without myelopathy Primary osteoarthritis of right knee Acute right ankle pain Primary insomnia Persistent disorder of initiating or maintaining sleep Seasonal allergic rhinitis due to pollen Class 2 severe obesity due to excess calories with serious comorbidity and body mass index (BMI) of 37.0 to 37.9 in adult ([facility]) Lumbar spondylosis- Primary Lumbosacral spondylosis without myelopathy Primary osteoarthritis of right knee Postoperative pain of right knee Class 2 severe obesity due to excess calories with serious comorbidity and body mass index (BMI) of 37.0 to 37.9 in adult ([facility]) documented in this encounter [facility] HealthcareEvaluation note* Diagnosis Lumbar spondylosis- Primary [...] (BMI) of 36.0 to 36.9 in adult ([facility]) Lumbar spondylosis- Primary Lumbosacral spondylosis without myelopathy Primary osteoarthritis of right knee Acute right ankle pain Primary insomnia Persistent disorder of initiating or maintaining sleep Seasonal allergic rhinitis due to pollen Class 2 severe obesity due to excess calories with serious comorbidity and body mass index (BMI) of 37.0 to 37.9 in adult ([facility]) Lumbar spondylosis- Primary Lumbosacral spondylosis without myelopathy Primary osteoarthritis of right knee Postoperative pain of right knee Class 2 severe obesity due to excess calories with serious comorbidity and body mass index (BMI) of 37.0 to 37.9 in adult ([facility]) Acute pain of right knee History of right knee joint replacement Prosthetic joint loosening, initial encounter Tendonitis of ankle, right Right ankle pain, unspecified chronicity documented in this encounter [facility] HealthcareEvaluation note* Diagnosis Lumbar spondylosis- Primary [...] Primary Routine general medical examination at a [facility] care facility Lumbar spondylosis Lumbosacral spondylosis without myelopathy Primary osteoarthritis of right knee MDD (major depressive disorder), recurrent episode, moderate (HCC) Overflow incontinence of urine Overflow incontinence Class 2 severe obesity due to excess calories with serious comorbidity and body mass index (BMI) of 36.0 to 36.9 in adult Lumbar spondylosis- Primary Lumbosacral spondylosis without myelopathy Primary osteoarthritis of right knee Acute right ankle pain Primary insomnia Persistent disorder of initiating or maintaining sleep Seasonal allergic rhinitis due to pollen Class 2 severe obesity due to excess calories with serious comorbidity and body mass index (BMI) of 37.0 to 37.9 in adult Lumbar spondylosis- Primary Lumbosacral spondylosis without myelopathy Primary osteoarthritis of right knee Postoperative pain of right knee Class 2 severe obesity due to excess calories with serious comorbidity and body mass index (BMI) of 37.0 to 37.9 in adult Right knee pain, unspecified chronicity- Primary Presence of artificial knee joint, right documented in this encounter [facility] for referral (narrative)* Consultation (Routine) - Closed Specialty Diagnoses / Procedures Referred By Contac t Referred To Contact Physical Therapy Diagnoses S/P TKR (total knee replacement), right Primary osteoarthritis of right knee Procedures SD OFFICE/OUTPATIENT NEW HIGH MDM 60 MINUTES Jr. Sonja Saleh, DO [address] [facility] [address] [place] [address] Tabatha Pereira, PT [address] [facility] [address] [place] [address] Referral ID Status Reason Start Date Expiration Date V isits Requested Visits Authorized [id number] Closed Consult and Treat 11/23/2023 05/21/2024 1 1 [facility] N[facility]* Rehabilitation - Outpatient (Routine) - Authorized Specialty Diagnoses / Procedures Referred By Benjy rondon Referred To Contact Physical Therapy Diagnoses Presence of artificial knee joint, right Procedures SD MANUAL THERAPY TQS 1/> REGIONS EACH 15 MINUTES SD THER PX 1/> AREAS EACH 15 MIN NEUROMUSC REEDUCA SD THERAPEUTIC PX 1/> AREAS EACH 15 MIN EXERCISES PHYS/OCC THERAPY SS Jr. Sonja Saleh, DO [address] [facility] [address] [place] [address] Phone: tel: fax: [facility] [address] [facility] [address] [place] [address] Phone: tel: fax: Referral ID Status Reason Start Date Expiration Date Visits Requested Visits Authorized [id number] Authorized Specialty Services Required 11/06/2023 01/04/2024 8 8 [facility] HealthcareReason for visit Narrative* Rehabilitation - Outpatient (Routine) - Authorized Specialty Diagnoses / Procedures Referred By Contac t Referred To Contact Physical Therapy Diagnoses Pain in right knee Presence of right artificial knee joint Procedures SD PHYSICAL THERAPY EVALUATION LOW COMPLEX 20 MINS Al Gutierrez MD [address] [place] [address] Phone: tel: fax: Charlotte Bah PT Referral ID Status Reason Start Date Expiration Date Visits Requested Visits Authorized [id number] Authorized Consult and Treat 11/16/2024 02/13/2025 12 12 [facility] Summary Purpose Family History No [...] left knee Terry Mclaughlin MD [address] [place] [address] Referral ID Status Reason Start Date Expiration Date Visits Re quested Visits Authorized [id number] Closed 1 1 Chief Complaint and Reason [...] 3pm Primary osteoarthritis of right knee Apr 2024 12:13pm Myofascial muscle pain June 20, 2024 1:3 5pm Other chronic pain June 20, 2024 1:35pm Primary osteoarthritis of right knee June 20, 2024 1:35pm Myofascial muscle pain June 30, 2024 2: 03pm Other chronic pain June 30, 2024 2:03p m Additional Source Comments INFORMATION SOURCE (unrecogn ized section and content) DATE CREATED AUTHOR 06/20/2022 [facility] DATE CREATED AUTHOR AUTHOR'S ORGANIZ ATION 06/21/2024 [facility] DATE CREATED AUTHOR AUTHOR'S ORGANIZ ATION 09/21/2024 [facility] DATE CREATED AUTHOR AUTHOR'S ORGANIZ ATION 11/20/2024 [facility] DATE CREATED AUTHOR AUTHOR'S ORGANIZ ATION 11/21/2024 [facility] EPIC Reason for Visit (unrecogniz [...] scheduled. Call Back 11/16/2023 She contacted an yee Morrison advised the need to fu w/ Delfino's office to see if scheduling out is able re: PT on-hold. Reason Comments Pain Specialty Diagnoses / Procedures Referred By Contmiriam t Referred To Contact Physical Therapy Diagnoses Presence of artificial knee joint, right Procedures SD MANUAL THERAPY TQS 1/> REGIONS EACH 15 MINUTES SD THER PX 1/> AREAS EACH 15 MIN NEUROMUSC REEDUCA SD THERAPEUTIC PX 1/> AREAS EACH 15 MIN EXERCISES PHYS/OCC THERAPY Jr. Sonja Shell, DO [address] [facility] [address] [place] [address] [facility] [address] [facility] [address] [place] [address] Referral ID Status Reason Start Date Expiration Date Visits Requested Visits Authorized [id number] Authorized Specialty Services Required 11/06/2023 01/04/2024 8 8 Reason Onset Date Comments Med Refill 12/14/2023 Reason Comments Pain Reason Onset Date Comments Med Refill 01/18/2024 Referral ID Status Reason Start Date Expiration Date Visits Requested Visits Authorized [id number] Authorized Specialty Services Required 10/22/2023 12/07/2023 2 2 Reason Onset Date Comments refill 09/30/2023 Reason Onset Date Comments Med Refill 10/12/2023 Specialty Diagnoses / Procedures Referred By Contac t Referred To Contact Physical Therapy Diagnoses Presence of artificial knee joint, right Procedures SD OFFICE/OUTPATIENT NEW HIGH MDM 60 MINUTES Jr. Sonja Saleh, DO [address] [facility] [address] [place] [address] [facility] [address] [facility] [address] [place] [address] Referral ID Status Reason Start Date Expiration Date Visits Requested Visits Authorized [id number] Authorized Specialty Services Required 09/09/2023 12/07/2023 12 12 Referral ID Status Reason Start Date Expiration Date V isits Requested Visits Authorized [id number] Closed Specialty Services Required 09/09/2023 12/07/2023 12 [...] 09-01-23 LGSIL, HPV pos. Last mammogram 09-07-23 [facility].Denies breast, urinary, or bowel concerns. Reason Comments Follow-up Reason Comments Follow-up [facility] f/u UTI Possible uti Reason Onset Date Comments unable to complete mri 09/23/2024 Reason Onset Date Comments referral 10/07/2024 Reason Comments Pain Care Teams (unrecognized sec tion and content) Instructor Adjunct Surgical Technician Relationship Specialty Start Date End Date Terry Mclaughlin MD PCP - General Cardiology 07/01/22 Instructor Adjunct Surgical Technician Relationship Specialty Start Date End Date Terry Mclaughlin MD [address] [place] [address] PCP - General Family Medicine 06/11/23 Instructor Adjunct Surgical Technician Relationship Specialty Start Date End Date Terry Mclaughlin MD [address] [place] [address] PCP - General Family Medicine 06/11/23 Instructor Adjunct Surgical Technician Relationship Specialty Start Date End Date Terry Mclaughlin MD [address] [place] [address] PCP - General Family Medicine 06/11/23 Instructor Adjunct Surgical Technician Relationship Specialty Start Date End Date Terry Mclaughlin MD [address] [place] [address] PCP - General Family Medicine 06/11/23 Terry Mclaughlin MD [address] [place] [address] PCP [facility] 10/18/23 Instructor Adjunct Surgical Technician Relationship Specialty Start Date End Date Terry Mclaughlin MD [address] [place] [address] PCP - General Family Medicine 06/11/23 Terry Mclaughlin MD [address] [place] [address] PCP - [employer] 10/18/23 Instructor Adjunct Surgical Technician Relationship Specialty Start Date End Date Terry Mclaughlin MD [address] [place] [address] PCP - General Family Medicine 06/11/23 Terry Mclaughlin MD [address] [place] [address] PCP - [employer] 10/18/23 Instructor Adjunct Surgical Technician Relationship Specialty Start Date End Date Terry Mclaughlin MD [address] [place] [address] PCP - General Family Medicine 06/11/23 Terry Mclaughlin MD [address] [place] [address] PCP - [employer] 10/18/23 Instructor Adjunct Surgical Technician Relationship Specialty Start Date End Date Terry Mclaughlin MD [address] [place] [address] PCP - General Family Medicine 06/11/23 Terry Mclaughlin MD [address] [place] [address] PCP - [employer] 10/18/23 Instructor Adjunct Surgical Technician Relationship Specialty Start Date End Date Terry Mclaughlin MD [address] [place] [address] PCP - General Family Medicine 06/11/23 Terry Mclaughlin MD [address] [place] [address] PCP - [employer] 10/18/23 Instructor Adjunct Surgical Technician Relationship Specialty Start Date End Date Terry Mclaughlin MD [address] [place] [address] PCP - General Family Medicine 06/11/23 Terry Mclaughlin MD [address] [place] [address] PCP - [employer] 10/18/23 Instructor Adjunct Surgical Technician Relationship Specialty Start Date End Date Terry Mclaughlin MD [address] [place] [address] PCP - General Family Medicine 06/11/23 Terry Mclaughlin MD [address] [place] [address] PCP - [employer] 10/18/23 Instructor Adjunct Surgical Technician Relationship Specialty Start Date End Date Terry Mclaughlin MD [address] [place] [address] PCP - General Family Medicine 06/11/23 Terry Mclaughlin MD [address] [place] [address] PCP - [employer] 10/18/23 Instructor Adjunct Surgical Technician Relationship Specialty Start Date End Date Terry Mclaughlin MD [address] [place] [address] PCP - General Family Medicine 06/11/23 Terry Mclaughlin MD [address] [place] [address] PCP - [employer] 10/18/23 Instructor Adjunct Surgical Technician Relationship Specialty Start Date End Date Terry Mclaughlin MD [address] [place] [address] PCP - General Family Medicine 06/11/23 Terry Mclaughlin MD [address] [place] [address] PCP - [employer] 10/18/23 Instructor Adjunct Surgical Technician Relationship Specialty Start Date End Date Terry Mclaughlin MD [address] [place] [address] PCP - General Family Medicine 06/11/23 Terry Mclaughlin MD [address] [place] [address] PCP - [employer] 10/18/23 Instructor Adjunct Surgical Technician Relationship Specialty Start Date End Date Terry Mclaughlin MD [address] [place] [address] PCP - General Family Medicine 06/11/23 Terry Mclaughlin MD [address] [place] [address] PCP - [employer] 10/18/23 Instructor Adjunct Surgical Technician Relationship Specialty Start Date End Date Terry Mclaughlin MD [address] [place] [address] PCP - General Family Medicine 06/11/23 Terry Mclaughlin MD [address] [place] [address] PCP - [employer] 10/18/23 Instructor Adjunct Surgical Technician Relationship Specialty Start Date End Date Terry Mclaughlin MD [address] [place] [address] PCP - General Family Medicine 06/11/23 Terry Mclaughlin MD [address] [place] [address] PCP - [employer] 10/18/23 Instructor Adjunct Surgical Technician Relationship Specialty Start Date End Date Terry Mclaughlin MD [address] [place] [address] PCP - General Family Medicine 06/11/23 Instructor Adjunct Surgical Technician Relationship Specialty Start Date End Date Terry Mclaughlin MD [address] [place] [address] PCP - General Family Medicine 06/11/23 Instructor Adjunct Surgical Technician Relationship Specialty Start Date End Date Terry Mclaughlin MD [address] [place] [address] PCP - General Family Medicine 06/11/23 Instructor Adjunct Surgical Technician Relationship Specialty Start Date End Date Terry Mclaughlin MD [address] [place] [address] PCP - General Family Medicine 06/11/23 Terry Mclaughlin MD [address] [place] [address] PCP - [facility] 10/18/23 Instructor Adjunct Surgical Technician Relationship Specialty Start Date End Date Terry Mclaughlin MD [address] [place] [address] PCP - General Family Medicine 06/11/23 Instructor Adjunct Surgical Technician Relationship Specialty Start Date End Date Terry Mclaughlin MD [address] [place] [address] PCP - General Family Medicine 06/11/23 Instructor Adjunct Surgical Technician Relationship Specialty Start Date End Date Terry Mclaughlin MD [address] [place] [address] PCP - General Family Medicine 06/11/23 Instructor Adjunct Surgical Technician Relationship Specialty Start Date End Date Terry Mclaughlin MD [address] [place] [address] PCP - General Family Medicine 06/11/23 Instructor Adjunct Surgical Technician Relationship Specialty Start Date End Date Terry Mclaughlin MD [address] [place] [address] PCP - General Family Medicine 06/11/23 Instructor Adjunct Surgical Technician Relationship Specialty Start Date End Date Terry Mclaughlin MD [address] [place] [address] PCP - General Family Medicine 06/11/23 Instructor Adjunct Surgical Technician Relationship Specialty Start Date End Date Terry Mclaughlin MD [address] [place] [address] PCP - General Family Medicine 06/11/23 Instructor Adjunct Surgical Technician Relationship Specialty Start Date End Date Terry Mclaughlin MD [address] [place] [address] PCP - General Family Medicine 06/11/23 Instructor Adjunct Surgical Technician Relationship Specialty Start Date End Date Terry Mclaughlin MD [address] [place] [address] PCP - General Family Medicine 06/11/23 Instructor Adjunct Surgical Technician Relationship Specialty Start Date End Date Terry Mclaughlin MD [address] [place] [address] PCP - General Family Medicine 06/11/23 Instructor Adjunct Surgical Technician Relationship Specialty Start Date End Date Terry Mclaughlin MD [address] [place] [address] PCP - General Family Medicine 06/11/23 Instructor Adjunct Surgical Technician Relationship Specialty Start Date End Date Terry Mclaughlin MD [address] [place] [address] PCP - General Family Medicine 06/11/23 Terry Mclaughlin MD [address] [place] [address] PCP - [facility] Instructor Adjunct Surgical Technician Relationship Specialty Start Date End Date Terry Mclaughlin MD [address] [place] [phone] PCP - General [facility] Medicine 06/11/23 Terry Mclaughlin MD [address] [place] [phone] [facility]23 Instructor Adjunct Surgical Technician Relationship Specialty Start Date End Date Terry Mclaughlin MD [address] [place] [phone] [facility] 06/[facility]/23 Terry Mclaughlin MD [address] [place] [phone] PCP [facility] 10/18/23 Instructor Adjunct Surgical Technician Relationship Specialty Start Date End Date Terry Mclaughlin MD [address] [place] [phone] PCP - General Acute Hospital Medicine 06/11/23 Terry Mclaughlin MD [address] [place] [phone] PCP [facility] 10/18/23 Team Status: Active Member Role Status [...] April 13, 2024 End: April 13, 2024 Instructor Adjunct Surgical Technician Relationship Specialty Start Date End Date Terry Mclaughlin MD [address] [place] [phone] PCP - General Family Medicine 06/11/23 Terry Mclaughlin MD [address] [place] [phone] PCP - [facility] 10/18/23 Team Status: Active Member Role Status [...] June 20, 2024 End: June 20, 2024 Instructor Adjunct Surgical Technician Relationship Specialty Start Date End Date Terry Mclaughlin MD [address] [place] [phone] PCP - General Family Medicine 06/11/23 Instructor Adjunct Surgical Technician Relationship Specialty Start Date End Date Terry Mclaughlin MD [address] [place] [phone] PCP - General Family Medicine 06/11/23 Team Status: Inactive Member Role Status Dates Terry Mclaughlin MD Primary Care Provider Active S tart: June 30, 2024 End: June 30, 2024 Luciano Reyes MD Attending Provider Active Sta rt: June 30, 2024 End: June 30, 2024 Instructor Adjunct Surgical Technician Relationship Specialty Start Date End Date Terry Mclaughlin MD [address] [place] [phone] PCP - General Family Medicine 06/11/23 Instructor Adjunct Surgical Technician Relationship Specialty Start Date End Date Terry Mclaughlin MD [address] [place] [phone] PCP - General Family Medicine 06/11/23 Instructor Adjunct Surgical Technician Relationship Specialty Start Date End Date Terry Mclaughlin MD [address] [place] [phone] PCP - General Family Medicine 06/11/23 Instructor Adjunct Surgical Technician Relationship Specialty Start Date End Date Terry Mclaughlin MD [address] [place] [phone] PCP - General Family Medicine 06/11/23 Instructor Adjunct Surgical Technician Relationship Specialty Start Date End Date Terry Mclaughlin MD [address] [place] [phone] PCP - General Family Medicine 06/11/23 Instructor Adjunct Surgical Technician Relationship Specialty Start Date End Date Terry Mclaughlin MD [address] [place] [phone] PCP - General Family Medicine 06/11/23 Instructor Adjunct Surgical Technician Relationship Specialty Start Date End Date Terry Mclaughlin MD [address] [place] [phone] PCP - General Family Medicine 06/11/23 Instructor Adjunct Surgical Technician Relationship Specialty Start Date End Date Terry Mclaughlin MD [address] [place] [phone] PCP - General Family Medicine 06/11/23 Instructor Adjunct Surgical Technician Relationship Specialty Start Date End Date Terry Mclaughlin MD [address] [place] [phone] PCP - General Family Medicine 06/11/23 Instructor Adjunct Surgical Technician Relationship Specialty Start Date End Date Marlo Lewis MD [address] [place] [address] PCP - General Family Medicine 10/26/24 Instructor Adjunct Surgical Technician Relationship Specialty Start Date End Date Marlo Lewis MD [address] [place] [address] PCP - General Family Medicine 10/26/24 Goals (unrecognized section and content) Goals may [...] BE BASED ON THE PRIMARY CLINICAL RECORDS. [facility] [employer] [facility]. provides no warranty or guarantee of the accuracy or completeness of information in this document.
[2024-11-24 16:08] LABS: Hematocrit 39.7 % (36.0-48.0); Hemoglobin 13.3 g/dL (12.0-16.0); Immature Granulocytes Abs Auto 0.05 10^3/uL (0.00-0.03); Immature Granulocytes Pct Auto 0.7 % (0.0-0.5); Lymphocytes Absolute Auto 1.2 10^3/uL (1.2-3.8); Mean Corpuscular HGB Conc 33.5 g/dL (29.9-35.2); Mean Corpuscular Hemoglobin 30.5 pg (26.7-34.0); Mean Corpuscular Volume 91.1 fL (81.0-99.0); Platelet Count 260 10^3/uL (150-450); Red Blood Count 4.36 10^6/uL (4.20-5.40); White Blood Count 6.7 10^3/uL (4.0-11.0)
== END 2024-11-24 15:39 | disposition home or self-care (01) ==
LOC: LAB 15:39
PROVIDERS: PCP Family Medicine
DX: M70.51 Other bursitis of knee, right knee (principal); Z96.651 Presence of right artificial knee joint
CPT/HCPCS: 36415; 85025; 85652; 86140